=== PATIENT | female | born 1955 | race Caucasian/White ===

== ENCOUNTER 2016-10-09 13:30 | Emergency (ER) | payer MEDICAID ==
[~2016-10-09] VITALS: Ht 157.5 cm; Wt 72.6 kg
[~2016-10-09 13:30] MED LIST: LEVOTHROID0.05 MG PO; LISINOPRIL 10MG10 MG PO; LISINOPRIL 5MG T5 MG PO; MECLIZINE25 MG PO; NYSTATIN CREAM;15 GM TP; PHENERGAN 25MG.25 M1 PO; PREDNISONE 10MG10 MG PO; TRILEPTAL300 MG PO; TRILEPTAL300 MG/5 M PO; ULTRACET 325 MG1 TAB PO; ZOFRAN4 MG PO
--- NOTE | 2016-10-09 13:56 | Emergency Room Report ---
History of Present Illness Time Seen by MD Kerr Presenting Problem in Triage Pt arrived:Walked Presenting Problem:PT ADVISES THAT SINCE SHE TOOK HER MEDICATION THIS MORNING IT FEELS IF SOMETHING IS STUCK IN HER THROAT AND SHE KEEPS COUGHING AND SPITTING UP PHLYM. 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 N Clinical Suspician of Infection? N Mental Status: 1 - Regular (Normal Baseline) Sepsis Risk:Low Sepsis Risk Have you (or family members/close friends) recently traveled outside the [place]? N If Yes, where/when: Have you had exposure to infectious disease within the past month? N TB? Other? Specify: Source patient, RN notes reviewed Exam Limitations no limitations Comment This is a 60-year-old female with a past medical history significant for hypertension, hypothyroidism, seizure disorder who presents to the emergency department for feeling like one of her morning pills is stuck in her throat neuritis sternal notch. She states that she took her medicines at about 9 AM and since then has been "choking and gagging" and states that she has been spitting up "water". She states this has never happened before. No history of acid reflux. She does not take a PPI or H2 cherelle. She tells me that she is unable at this time to tolerate her secretions and is having to spit her saliva out into a bag. She denies any difficulty breathing. ALLERGIES Coded Allergies: Penicillins (03/09/16) Home Medications Reported Medications Levothyroxine Sodium (Levothroid) 0.05 MG PO DAILY Oxcarbazepine (Trileptal) 300 MG PO BID LISINOPRIL (Lisinopril) 5 MG PO DAILY Nystatin (Nystatin Cream; 15GM Tube) 100,000 U TP TID History Medical History General CAD? No Angina: Yes [place]: No Hypertension? Yes Hyperlipidemia? No CHF? No DVT? No PE? No COPD? No Asthma? Yes Anemia? No GERD? No Gastric ulcers? No GI Bleed? No Hernia? No Thyroid Problems? No Hypothyroidism? No CVA? No Seizures? Yes Diabetes? No Renal Insuffiency? No End Stage Renal Disease? No UTI? Yes Stones? No BPH? No GB Disease: No Nephritic Syndrome? No Asplenia? No Hepatitis? No Sickle Cell Disease? No Arthritis? No Migraines? No Cataracts? No Glaucoma? No MRSA? No HIV? No TB? No Anxiety? No Depression? No Cancer? No More? No Immunization Hx DT/Tetanus UNKNOWN Flu Refused Pneumonia Never Had Surgical Hx Previous Surgery?Y TUMOR BRAIN-BENIGN( STOMACH TUMOR-BENIGN HYSTERECTOMY TONSILLECTOMY BLADDER TACK RT EAR DRUM X2 CYST REMOVED RT EAR HYSTERECTOMY Family History Family Hx Diabetes Yes CAD Yes Hypertension Yes Hyperlipidemia Yes Cancer Yes TB No Social History Smoking Hx Smoker: Never Smoker Tobacco: No Alcohol Alcohol: No Review of Systems All Other Systems Reviewed and Negative Physical Exam Vital Signs Vital Signs Date Time Temp Pulse Resp B/P Pulse O2 O2 Flow FiO2 Ox Delivery Rate 10/09 1514 102 18 98 10/09 1434 81 16 153/93 98 10/09 1334 98.2 91 18 168/106 95 General Appearance normal appearance, WD/WN Ear, Nose, Throat hearing grossly normal, widely patent airway with no foreign body Neck normal inspection, non-tender, supple, full range of motion Respiratory Status Yes: chest symmetrical, non tender chest. No: respiratory distress. Lung Sounds bilateral: normal breath sounds, lungs clear. Cardiovascular normal exam, regular rate/rhythm, no peripheral edema, no gallop, no JVD, no murmur, no rub, normal peripheral pulses Gastrointestinal normal bowel sounds, normal exam, non tender Neurologic alert, no motor/sensory deficits, oriented x 3 Skin intact, normal color, warm/dry Medical Decision Making LABS/Meds/Orders Pt receiving controlled substance in ED? No Results/Orders Current Medication Orders Sig/Anne Start time Last Medication Dose Route Stop Time Status Admin Glucagon 0 .STK-MED ONE 10/09 1506 DC .ROUTE Sodium Chloride 1,000 ML .STK-MED ONE 10/09 1506 DC IV Glucagon 1 MG ONCE ONE 10/09 1445 DC 10/09 IV 10/09 1446 1509 Sodium Chloride 1,000 ML .Q1H1M 10/09 1445 AC 10/09 IV 10/09 1545 1509 Sodium Chloride 10 ML PRN PRN 10/09 1445 AC IV 10/10 1444 Ondansetron HCl 0 .STK-MED ONE 10/09 1439 DC .ROUTE Multi-Ingredient GI 0 .STK-MED ONE 10/09 1436 DC Drug PO Ondansetron HCl 0 .STK-MED ONE 10/09 1436 DC .ROUTE Multi-Ingredient GI 60 ML ONCE ONE 10/09 1430 DC 10/09 Drug PO 10/09 1431 1438 Ondansetron HCl 4 MG ONCE ONE 10/09 1430 DC 10/09 PO 10/09 1431 1438 Orders Procedure Date/time Status CHEST-PORTABLE 10/09 1352 Active XRAY/CT/US XRAY/CT/US XRAY chest XR interpretation by reviewed by me Xray Results no mediastinal air, subcutaneous air, PTX Departure Departure Disposition DC Home or Self Care(routine) Clinical Impression Primary Impression: Food impaction of esophagus Qualifiers: Encounter type: initial encounter Qualified Code: T18.128A - Food in esophagus causing other injury, initial encounter Condition STABLE Referrals MANNY CLEMONS Additional Instructions Be sure to take very small bites, take omeprazole daily (this is an over-the- counter medication) and follow-up with gastrointestinal doctor for further evaluation within the next week to see if you need esophageal stretching. ED Critical Care Critical Care No Comments Patient seems to be tolerating some secretions at this time, but then will begin vomiting again. We have attempted to have her tolerate a Zofran and gastrointestinal cocktail, she was unable to keep this down and had another episode of vomiting. Chest x-ray does not show any signs of mediastinal air, esophageal rupture. Review of patient's chart shows that she actually has had this problem before and has a known esophageal stricture. Patient has significant improvement with glucagon, vomits up eggs, which she neglected to tell me that she ate, and is now tolerating by mouth. We will discharge home. Chest x-ray is benign. at 1540
[2016-10-09 15:45] VITALS: BP 153/93
--- NOTE | 2016-10-09 17:47 | RADIOLOGY REPORT PS360 ---
CHEST-PORTABLE Ordering physician: Corey Bolden MD Age: 60 years Female INDICATION: chest symptomspill esophagitis PROCEDURE: CHEST-PORTABLE FINDINGS: Previous comparison chest x-ray from 12/18/2010 Left lung stable clear unremarkable. Upper normal markings at the right infrahilar region medial right base. Most likely overlapping shadows and slight rotation of the chest but cannot exclude early infiltrate at the medial right base. There are restorations consider follow-up. Borderline to mild cardiomegaly. Normal pulmonary vascularity. No pleural effusion. Chest wall unremarkable. . IMPRESSION ----- Nothing definite acute at chest Upper normal markings at the medial right base. Suspect reflecting atelectasis accentuated by slight rotation chest film-doubt early infiltrate respiratory symptoms progress consider follow-up Mild cardiomegaly
== END 2016-10-09 15:46 | disposition home or self-care (01) ==
LOC: ER 13:30
DX: T18.128A Food in esophagus causing other injury, initial encounter (principal)

== ENCOUNTER 2017-04-06 13:38 | Observation (INO) | payer MEDICAID ==
[~2017-04-06] VITALS: Ht 157.5 cm; Wt 65.4 kg
[2017-04-06 13:38] VITALS: BP 122/76
[2017-04-06] MEDS ORDERED: AMLODIPINE BES10 MG PO (13:45)
--- NOTE | 2017-04-06 13:48 | Emergency Room Report ---
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 N Clinical Suspician of Infection? N Mental Status: 1 - Regular (Normal Baseline) Sepsis Risk:Low Sepsis Risk Have you (or family members/close friends) recently traveled outside the [place]? N If Yes, where/when: Have you had exposure to infectious disease within the past month? N TB? Other? Specify: Comment The patient complains of weakness. She says that she was at [employer] and her legs began feeling weak. They now feel better. She says that her abdomen was queasy feeling because she has not eaten today. She had a little chest pressure as well. She now feels better from all of these respects. She says recently she has had an ear infection in her left ear with a ruptured eardrum and trouble swallowing. Dr. Patton is addressing all of these problems. ALLERGIES Coded Allergies: Penicillins (03/09/16) Home Medications Reported Medications Amlodipine Besylate (Amlodipine Besylate) 10 MG PO DAILY #30 Levothyroxine Sodium (Levothroid) 0.05 MG PO DAILY Oxcarbazepine (Trileptal) 300 MG PO BID History Medical History General CAD? No Angina: Yes [place]: No Hypertension? Yes Hyperlipidemia? No CHF? No DVT? No PE? No COPD? No Asthma? Yes Anemia? No GERD? No Gastric ulcers? No GI Bleed? No Hernia? No Thyroid Problems? No Hypothyroidism? No CVA? No Seizures? Yes Diabetes? No Renal Insuffiency? No End Stage Renal Disease? No UTI? Yes Stones? No BPH? No GB Disease: No Nephritic Syndrome? No Asplenia? No Hepatitis? No Sickle Cell Disease? No Arthritis? No Migraines? No Cataracts? No Glaucoma? No MRSA? No HIV? No TB? No Anxiety? No Depression? No Cancer? No More? No Immunization Hx DT/Tetanus UNKNOWN Flu Refused Pneumonia Never Had Surgical Hx Previous Surgery?Y TUMOR BRAIN-BENIGN( STOMACH TUMOR-BENIGN HYSTERECTOMY TONSILLECTOMY BLADDER TACK RT EAR DRUM X2 CYST REMOVED RT EAR HYSTERECTOMY Family History Family Hx Diabetes Yes CAD Yes Hypertension Yes Hyperlipidemia Yes Cancer Yes TB No Social History Smoking Hx Smoker: Never Smoker Tobacco: No Alcohol Alcohol: No Review of Systems All Other Systems Reviewed and Negative Constitutional denies fever, weakness ENT see HPI. Respiratory denies shortness of breath Cardiovascular chest pain Gastrointestinal abdominal pain, denies vomiting Psychiatric/Neurological denies headache Physical Exam Vital Signs Vital Signs Date Time Temp Pulse Resp B/P Pulse O2 O2 Flow FiO2 Ox Delivery Rate 04/06 1830 80 04/06 1830 97.8 80 20 124/79 04/06 1830 94 ROOM AIR 04/06 1830 97.8 80 20 124/79 94 ROOM AIR 04/06 1744 97.8 68 18 137/98 98 04/06 1740 97.8 68 18 137/98 98 04/06 1651 66 18 138/62 97 04/06 1600 65 18 137/70 96 04/06 1517 58 18 131/70 96 04/06 1436 58 18 137/71 96 04/06 1338 97.8 66 18 122/76 96 General Appearance normal appearance, WD/WN Eye Exam - bilateral eye normal exam, bilateral eye PERRL, bilateral eye EOMI Ear, Nose, Throat cotton in LEFT ear. Neck normal inspection, non-tender, supple, full range of motion Respiratory Status Yes: trachea midline, chest symmetrical, non tender chest. No: respiratory distress. Lung Sounds bilateral: normal breath sounds, lungs clear. 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 No Results/Orders Laboratory Tests 04/06/17 1855: Troponin I < 0.02 04/06/17 1630: Urine Color DK YELLOW, Urine Appearance TURBID, Urine pH 6.0, Ur Specific [place] >= 1.030, Urine Protein 2+ H, Urine Ketones TRACE H, Urine Blood NEGATIVE, Urine Nitrate POSITIVE H, Urine Bilirubin NEGATIVE, Urine Urobilinogen 1.0, Ur Leukocyte Esterase TRACE H, Urine WBC 10-20, Ur Squamous Epith Cells 10-20, Urine Bacteria 4+, Hyaline Casts 10-20, Urine Glucose NEGATIVE 04/06/17 1504: Creatine Kinase 76, CK-MB (CK-2) Rel Index 1.2, CK and CKMB Interp 0.9, Troponin I 0.08 H 04/06/17 1504: Sodium 128 L, Potassium 4.1, Chloride 100, Carbon Dioxide 16 L, BUN 11, Creatinine 1.0, Estimated Creat Clear 62, Estimated GFR (MDRD) 56 L, Glucose 117 H, Calcium 8.7, Total Bilirubin 1.0, AST 54 H, ALT 28, Alkaline Phosphatase 116, Total Protein 7.2, Albumin 3.2 L, Globulin 4.0 H, Albumin/ Globulin Ratio 0.8 L 04/06/17 1350: WBC 5.5, RBC 4.30, Hgb 13.6, Hct 40.6, MCV 94.4, RDW 12.8, Plt Count 168, MPV 8.6, Gran % 64.3, Gran # 3.5, Lymphocytes % 25.6, Monocytes % 5.7, Eosinophils % 3.8, Basophils % 0.7, Lymphocytes # 1.4, Monocytes # 0.3, Eosinophils # 0.2, Basophils # 0.0, PUBS MCHC 33.4, MCH 31.5 H 04/06/17 1342: POC Glucose 129 H Current Medication Orders Sig/Anne Start time Last Medication Dose Route Stop Time Status Admin Amlodipine Besylate 10 MG DAILY 04/07 0900 UNV PO Levofloxacin/Dextrose 150 ML DAILY 04/07 09 UNVr IV 04/11 1030 Levothyroxine Sodium 0.05 MG DAILY 04/07 0900 UNV PO Oxcarbazepine 300 MG BID 04/06 2100 UNV PO Sodium Chloride 10 ML PRN PRN 04/06 1715 UNV IV Aspirin 0 .STK-MED ONE 04/06 1700 DC .ROUTE Influenza Virus 0.5 ML PRN PRN 04/06 170 UNV Vaccine Quadrival IM Levofloxacin/Dextrose 150 ML ONCE ONE 04/06 1700 DCr 04/06 IV 04/06 1829 1706 Levofloxacin/Dextrose 150 ML .STK-MED ONE 04/06 170 DC IV Nicotine 21 MG DAILYP PRN 04/06 1700 UNV TD Sodium Chloride 1,000 ML .Q6H40M 04/06 1700 AC 04/06 IV 04/06 2059 1703 Sodium Chloride 1,000 ML .Q6H40M 04/06 1700 UNV IV Sodium Chloride 1,000 ML .STK-MED ONE 04/06 1700 DC IV Aspirin 324 MG ONCE ONE 04/06 1645 DC 04/06 PO 04/06 1646 1703 Sodium Chloride 10 ML PRN PRN 04/06 1400 AC IV 04/07 1349 Orders Procedure Date/time Status [id number] FAT/LO CHO/MARICARMEN 04/07 B Active BASIC METABOLIC PROFILE 04/07 0600 Active TROPONIN I 04/07 0100 Active TROPONIN I 04/06 2200 Active TROPONIN I 04/06 1900 Complete Decision to admit 04/06 1651 Active CULTURE, URINE 04/06 1630 Active CARDIAC ENZYMES 04/06 1406 Complete IV SALINE LOCK 04/06 1349 Active URINALYSIS/COMPLETE 04/06 1349 Complete CBC WITH AUTO DIFF 04/06 1349 Complete CHEM 12 PROFILE 04/06 1349 Complete FINGERSTICK BLOOD SUGAR 04/06 1342 Complete ADMIT PATIENT 04/06 UNK Active 12 LEAD EKG-RADHA (INITIAL) 04/06 UNK Active VITAL SIGNS 04/06 UNK Active 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 She does not currently have any more chest pain. Aspirin ordered. 4:50 PM: I have discussed the case with Dr. Lopez for Dr. Patton who agrees to admit the patient to the hospital. We discussed the patient's clinical information, including history, exam, laboratory and radiology results and ED course. Per hospital procedure, I will write temporary bridge inpatient orders on the patient. Specific orders requested by the admitting physician: Serial cardiac enzymes, IV fluids, antibiotics Departure Departure Disposition Still a Patient Clinical Impression Primary Impression: Chest pain Qualifiers: Chest pain type: precordial pain Qualified Code: R07.2 - Precordial pain Secondary Impressions: Dehydration Elevated troponin Hyponatremia UTI (urinary tract infection) Qualifiers: Urinary tract infection type: acute cystitis Hematuria presence: without hematuria Qualified Code: N30.00 - Acute cystitis without hematuria Condition STABLE Referrals Gary Patton MD (Family) ED Critical Care Critical Care No at 2022
--- NOTE | 2017-04-06 13:48 | Emergency Room Report ---
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 N Clinical Suspician of Infection? N Mental Status: 1 - Regular (Normal Baseline) Sepsis Risk:Low Sepsis Risk Have you (or family members/close friends) recently traveled outside the [place]? N If Yes, where/when: Have you had exposure to infectious disease within the past month? N TB? Other? Specify: Comment The patient complains of weakness. She says that she was at [employer] and her legs began feeling weak. They now feel better. She says that her abdomen was queasy feeling because she has not eaten today. She had a little chest pressure as well. She now feels better from all of these respects. She says recently she has had an ear infection in her left ear with a ruptured eardrum and trouble swallowing. Dr. Patton is addressing all of these problems. ALLERGIES Coded Allergies: Penicillins (03/09/16) Home Medications Reported Medications Amlodipine Besylate (Amlodipine Besylate) 10 MG PO DAILY #30 Levothyroxine Sodium (Levothroid) 0.05 MG PO DAILY Oxcarbazepine (Trileptal) 300 MG PO BID History Medical History General CAD? No Angina: Yes [place]: No Hypertension? Yes Hyperlipidemia? No CHF? No DVT? No PE? No COPD? No Asthma? Yes Anemia? No GERD? No Gastric ulcers? No GI Bleed? No Hernia? No Thyroid Problems? No Hypothyroidism? No CVA? No Seizures? Yes Diabetes? No Renal Insuffiency? No End Stage Renal Disease? No UTI? Yes Stones? No BPH? No GB Disease: No Nephritic Syndrome? No Asplenia? No Hepatitis? No Sickle Cell Disease? No Arthritis? No Migraines? No Cataracts? No Glaucoma? No MRSA? No HIV? No TB? No Anxiety? No Depression? No Cancer? No More? No Immunization Hx DT/Tetanus UNKNOWN Flu Refused Pneumonia Never Had Surgical Hx Previous Surgery?Y TUMOR BRAIN-BENIGN( STOMACH TUMOR-BENIGN HYSTERECTOMY TONSILLECTOMY BLADDER TACK RT EAR DRUM X2 CYST REMOVED RT EAR HYSTERECTOMY Family History Family Hx Diabetes Yes CAD Yes Hypertension Yes Hyperlipidemia Yes Cancer Yes TB No Social History Smoking Hx Smoker: Never Smoker Tobacco: No Alcohol Alcohol: No Review of Systems All Other Systems Reviewed and Negative Constitutional denies fever, weakness ENT see HPI. Respiratory denies shortness of breath Cardiovascular chest pain Gastrointestinal abdominal pain, denies vomiting Psychiatric/Neurological denies headache Physical Exam Vital Signs Vital Signs Date Time Temp Pulse Resp B/P Pulse O2 O2 Flow FiO2 Ox Delivery Rate 04/06 1830 80 04/06 1830 97.8 80 20 124/79 04/06 1830 94 ROOM AIR 04/06 1830 97.8 80 20 124/79 94 ROOM AIR 04/06 1744 97.8 68 18 137/98 98 04/06 1740 97.8 68 18 137/98 98 04/06 1651 66 18 138/62 97 04/06 1600 65 18 137/70 96 04/06 1517 58 18 131/70 96 04/06 1436 58 18 137/71 96 04/06 1338 97.8 66 18 122/76 96 General Appearance normal appearance, WD/WN Eye Exam - bilateral eye normal exam, bilateral eye PERRL, bilateral eye EOMI Ear, Nose, Throat cotton in LEFT ear. Neck normal inspection, non-tender, supple, full range of motion Respiratory Status Yes: trachea midline, chest symmetrical, non tender chest. No: respiratory distress. Lung Sounds bilateral: normal breath sounds, lungs clear. 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 No Results/Orders Laboratory Tests 04/06/17 1855: Troponin I < 0.02 04/06/17 1630: Urine Color DK YELLOW, Urine Appearance TURBID, Urine pH 6.0, Ur Specific [place] >= 1.030, Urine Protein 2+ H, Urine Ketones TRACE H, Urine Blood NEGATIVE, Urine Nitrate POSITIVE H, Urine Bilirubin NEGATIVE, Urine Urobilinogen 1.0, Ur Leukocyte Esterase TRACE H, Urine WBC 10-20, Ur Squamous Epith Cells 10-20, Urine Bacteria 4+, Hyaline Casts 10-20, Urine Glucose NEGATIVE 04/06/17 1504: Creatine Kinase 76, CK-MB (CK-2) Rel Index 1.2, CK and CKMB Interp 0.9, Troponin I 0.08 H 04/06/17 1504: Sodium 128 L, Potassium 4.1, Chloride 100, Carbon Dioxide 16 L, BUN 11, Creatinine 1.0, Estimated Creat Clear 62, Estimated GFR (MDRD) 56 L, Glucose 117 H, Calcium 8.7, Total Bilirubin 1.0, AST 54 H, ALT 28, Alkaline Phosphatase 116, Total Protein 7.2, Albumin 3.2 L, Globulin 4.0 H, Albumin/ Globulin Ratio 0.8 L 04/06/17 1350: WBC 5.5, RBC 4.30, Hgb 13.6, Hct 40.6, MCV 94.4, RDW 12.8, Plt Count 168, MPV 8.6, Gran % 64.3, Gran # 3.5, Lymphocytes % 25.6, Monocytes % 5.7, Eosinophils % 3.8, Basophils % 0.7, Lymphocytes # 1.4, Monocytes # 0.3, Eosinophils # 0.2, Basophils # 0.0, PUBS MCHC 33.4, MCH 31.5 H 04/06/17 1342: POC Glucose 129 H Current Medication Orders Sig/Anne Start time Last Medication Dose Route Stop Time Status Admin Amlodipine Besylate 10 MG DAILY 04/07 0900 UNV PO Levofloxacin/Dextrose 150 ML DAILY 04/07 09 UNVr IV 04/11 1030 Levothyroxine Sodium 0.05 MG DAILY 04/07 0900 UNV PO Oxcarbazepine 300 MG BID 04/06 2100 UNV PO Sodium Chloride 10 ML PRN PRN 04/06 1715 UNV IV Aspirin 0 .STK-MED ONE 04/06 1700 DC .ROUTE Influenza Virus 0.5 ML PRN PRN 04/06 170 UNV Vaccine Quadrival IM Levofloxacin/Dextrose 150 ML ONCE ONE 04/06 1700 DCr 04/06 IV 04/06 1829 1706 Levofloxacin/Dextrose 150 ML .STK-MED ONE 04/06 170 DC IV Nicotine 21 MG DAILYP PRN 04/06 1700 UNV TD Sodium Chloride 1,000 ML .Q6H40M 04/06 1700 AC 04/06 IV 04/06 2059 1703 Sodium Chloride 1,000 ML .Q6H40M 04/06 1700 UNV IV Sodium Chloride 1,000 ML .STK-MED ONE 04/06 1700 DC IV Aspirin 324 MG ONCE ONE 04/06 1645 DC 04/06 PO 04/06 1646 1703 Sodium Chloride 10 ML PRN PRN 04/06 1400 AC IV 04/07 1349 Orders Procedure Date/time Status [id number] FAT/LO CHO/MARICARMEN 04/07 B Active BASIC METABOLIC PROFILE 04/07 0600 Active TROPONIN I 04/07 0100 Active TROPONIN I 04/06 2200 Active TROPONIN I 04/06 1900 Complete Decision to admit 04/06 1651 Active CULTURE, URINE 04/06 1630 Active CARDIAC ENZYMES 04/06 1406 Complete IV SALINE LOCK 04/06 1349 Active URINALYSIS/COMPLETE 04/06 1349 Complete CBC WITH AUTO DIFF 04/06 1349 Complete CHEM 12 PROFILE 04/06 1349 Complete FINGERSTICK BLOOD SUGAR 04/06 1342 Complete ADMIT PATIENT 04/06 UNK Active 12 LEAD EKG-RADHA (INITIAL) 04/06 UNK Active VITAL SIGNS 04/06 UNK Active 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 She does not currently have any more chest pain. Aspirin ordered. 4:50 PM: I have discussed the case with Dr. Lopez for Dr. Patton who agrees to admit the patient to the hospital. We discussed the patient's clinical information, including history, exam, laboratory and radiology results and ED course. Per hospital procedure, I will write temporary bridge inpatient orders on the patient. Specific orders requested by the admitting physician: Serial cardiac enzymes, IV fluids, antibiotics Departure Departure Disposition Still a Patient Clinical Impression Primary Impression: Chest pain Qualifiers: Chest pain type: precordial pain Qualified Code: R07.2 - Precordial pain Secondary Impressions: Dehydration Elevated troponin Hyponatremia UTI (urinary tract infection) Qualifiers: Urinary tract infection type: acute cystitis Hematuria presence: without hematuria Qualified Code: N30.00 - Acute cystitis without hematuria Condition STABLE Referrals Gary Patton MD (Family) ED Critical Care Critical Care No at 2022
[2017-04-06 14:22] LABS: LYMPH # 1.4 K/mm3 (0.7-4.5); LYMPH % 25.6 % (10-50.0)
[2017-04-06 14:23] LABS: HEMOGLOBIN 13.6 g/dL (12.2-16.2)
[2017-04-06 16:40] LABS: URINE BLOOD NEGATIVE (NEG)
[2017-04-06 16:44] LABS: URINE BILIRUBIN - DIPSTICK NEGATIVE (NEG)
[2017-04-06 18:30] VITALS: BP 124/79
[2017-04-06 20:10] VITALS: BP 133/70
[2017-04-06 21:25] VITALS: BP 133/70
[2017-04-07 00:11] VITALS: BP 147/84
[2017-04-07 04:17] VITALS: BP 155/78
[2017-04-07 08:00] VITALS: BP 169/111
[2017-04-07 10:00] VITALS: BP 180/80
[2017-04-07 12:00] VITALS: BP 150/89
[2017-04-07] MEDS ORDERED: LEVAQUIN500 MG PO (13:00)
--- NOTE | 2017-04-07 13:07 | Discharge Summary Standard ---
Demographics: Admit date: 04/06/17 Chief complaint: Abdominal pain PRIMARY DIAGNOSIS: CHEST PAIN, UTI Allergies: Coded Allergies: Penicillins (03/09/16) History of present illness: History of present illness: The patient complains of weakness. She says that she was at [facility] and her legs began feeling weak. They now feel better. She says that her abdomen was queasy feeling because she has not eaten today. She had a little chest pressure as well. She now feels better from all of these respects. She says recently she has had an ear infection in her left ear with a ruptured eardrum and trouble swallowing. Dr. Patton is addressing all of these problems. Above note per ER physician. Patient had minimally elevated troponin level and was admitted for treatment of her urinary tract infection that was found in the emergency department as well as monitoring troponins. 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 Past medical history: Family HX Diabetes Yes CAD Yes Hypertension Yes Hyperlipidemia Yes Cancer Yes TB No Immunization HX DT/Tetanus UNKNOWN Flu Refused Pneumonia Never Had TB Test in last year No General CAD? No Angina: Yes [place]: No Hypertension? Yes Hyperlipidemia? No CHF? No DVT? No PE? No COPD? No Asthma? Yes Anemia? No GERD? No Gastric ulcers? No GI Bleed? No Hernia? No Thyroid Problems? No Hypothyroidism? No CVA? No Seizures? Yes Diabetes? No Renal Insuffiency? No UTI? Yes Stones? No BPH? No GB Disease: No Nephritic Syndrome? No Asplenia? No Hepatitis? No Sickle Cell Disease? No Arthritis? No Migraines? No Cataracts? No Glaucoma? No MRSA? No HIV? No TB? No Anxiety? No Depression? No Cancer? No More? No Past Surgical HX Previous Surgery?Y TUMOR BRAIN-BENIGN(INFANT STOMACH TUMOR-BENIGN HYSTERECTOMY TONSILLECTOMY BLADDER TACK RT EAR DRUM X2 CYST REMOVED RT EAR HYSTERECTOMY Current home meds: Reported Medications Amlodipine Besylate (Amlodipine Besylate) 10 MG PO DAILY #30 Levothyroxine Sodium (Levothroid) 0.05 MG PO DAILY Oxcarbazepine (Trileptal) 300 MG PO BID Social Hx: Smoking HX Tobacco No Are you/the child exposed to second-hand smoke: No Alcohol Alcohol: No Hx of Drug Use Drug Use? No Patien't marital status is single Patient's support system is excellent Comment: Patient lives with her daughter. Review of systems: Constitutional malaise, weakness. Respiratory No: no symptoms reported. Cardiovascular see HPI Gastrointestinal/Abdominal see HPI Genitourinary see HPI. Musculoskeletal No: no symptoms reported. Neurological No: see HPI. Exam: Lab data for last 24 hours: Laboratory Tests 04/07/17 0645: Sodium 131 L, Potassium 3.5, Chloride 101, Carbon Dioxide 22, BUN 7, Creatinine 0.7, Estimated Creat Clear 87, Estimated GFR (MDRD) 85, Glucose 104, Calcium 7.5 L 04/07/17 0215: Troponin I < 0.02 04/06/17 2250: Troponin I < 0.02 04/06/17 1855: Troponin I < 0.02 04/06/17 1630: Urine Color DK YELLOW, Urine Appearance TURBID, Urine pH 6.0, Ur Specific [place] >= 1.030, Urine Protein 2+ H, Urine Ketones TRACE H, Urine Blood NEGATIVE, Urine Nitrate POSITIVE H, Urine Bilirubin NEGATIVE, Urine Urobilinogen 1.0, Ur Leukocyte Esterase TRACE H, Urine WBC 10-20, Ur Squamous Epith Cells 10-20, Urine Bacteria 4+, Hyaline Casts 10-20, Urine Glucose NEGATIVE 04/06/17 1504: Creatine Kinase 76, CK-MB (CK-2) Rel Index 1.2, CK and CKMB Interp 0.9, Troponin I 0.08 H 04/06/17 1504: Sodium 128 L, Potassium 4.1, Chloride 100, Carbon Dioxide 16 L, BUN 11, Creatinine 1.0, Estimated Creat Clear 62, Estimated GFR (MDRD) 56 L, Glucose 117 H, Calcium 8.7, Total Bilirubin 1.0, AST 54 H, ALT 28, Alkaline Phosphatase 116, Total Protein 7.2, Albumin 3.2 L, Globulin 4.0 H, Albumin/ Globulin Ratio 0.8 L 04/06/17 1350: WBC 5.5, RBC 4.30, Hgb 13.6, Hct 40.6, MCV 94.4, RDW 12.8, Plt Count 168, MPV 8.6, Gran % 64.3, Gran # 3.5, Lymphocytes % 25.6, Monocytes % 5.7, Eosinophils % 3.8, Basophils % 0.7, Lymphocytes # 1.4, Monocytes # 0.3, Eosinophils # 0.2, Basophils # 0.0, PUBS MCHC 33.4, MCH 31.5 H 04/06/17 1342: POC Glucose 129 H Microbiology 04/06 1630 URINE CC: Urine Culture - RES Admission vital signs: 1ST Vital Signs Result Date Time Pulse Ox 96 04/06 133 B/P 122/76 04/06 1338 Temp 97.8 04/06 1338 Pulse 66 04/06 133 Resp 18 04/06 1338 O2 Delivery ROOM AIR 04/06 1830 Additional information: Patient is pleasant, alert 2, a little fuzzy about the date. Anterior lung lora are clear, heart rate regular with soft flow murmur, abdomen is soft and nontender, no CVA tenderness. No rebound or guarding. Extremities are without clubbing or edema. Good capillary refill and no pulse deficits. Cranial nerves are intact. Hospital Course Hospital Course: Patient was admitted overnight. Cardiac enzymes on repeat testing were normal 3. Telemetry monitoring overnight was unremarkable. Electrocardiogram showed no evidence of ischemic change. She tolerated intravenous levofloxacin fairly well in this morning is eating well with the exception of some choking/coughing sensations when she is eating, albeit in the hospital bed. She will be discharged home on by mouth levofloxacin. She will follow-up with her primary physician, Dr. Pattno, and I would take the liberty of recommending a swallowing evaluation as an outpatient and I have recommended a soft diet for her. Medications Medications: Discharge meds are as noted. Follow up Follow up in office in: 4 DAYS with: Gary Patton MD at 1307
--- NOTE | 2017-04-07 13:23 | PHARMACY CLINIC NOTE ---
Patient Demographics Patient Demographics Admission date: 04/06/17 Date: 04/07/17 Time: 1323 Allergies Coded Allergies: Penicillins (03/09/16) HEIGHT- FT: 5 IN: 2.00 K.375 VTE General Information Labs: Laboratory Tests 04/06 1350 Hematology Hgb (12.2 - 16.2 g/dL) 13.6 Hct (37.0 - 47.0 %) 40.6 Plt Count (142 - 424 K/mm3) 168 Disclaimer The following section includes nursing documentation that has been pulled in for pharmacy review. Patient's VTE score: 2 Patient's VTE Risk: VERY LOW RISK Clinical trial participant? No VTE prophylaxis NQF [id number] VTE prophylaxis ordered? Yes Type of prophylaxis/treatment: DICKSON at 1322
[2017-04-07 13:55] VITALS: BP 150/89
--- OUTSIDE RECORDS SUMMARY | 2017-04-07 19:54 | External Medical Summary Rpt | CCD ---
Author Author , ALVA CALLE Address Unknown Phone [email or web address] Care Team Providers Care Blood Bank Laboratory Technologist Name Role Phone A Angeles CRUZ MD PSC, A Unavailable Unavailable Angeles CRUZ MD PSC FABIO GARCIA Unavailable Unavailable RADHA STEIN Unavailable Unavailable PENDLETON ALL, PENDLETON ALL Unavailable Unavailable [facility] Unavailable Unavailable SERVICE, [facility] Unavailable Unavailable SERVICE, [facility] Unavailable Unavailable SERVICE, [facility] TRACY WISEMAN, Unavailable Unavailable TRACY WISEMAN [facility] Unavailable Unavailable LAB, [facility] MEM[facility] VALENTINE Unavailable Unavailable MEME YAZ, Unavailable Unavailable MEME YAZ STEPHANI VALENTINE, Unavailable Unavailable STEPHANI VALENTINE MARTINES RUPERT, Unavailable Unavailable MARTINESMERCEDES MARTINES RUPERT, Unavailable Unavailable EDWIN ENRIQUEZ, Unavailable Unavailable EDWIN MARTINES [facility] Unavailable Unavailable [place], [facility] [place] [facility]available [facility], Unavailable Unavailable [facility] Unavailable Unavailable [facility], [facility] Unavailable Unavailable [facility], [facility] Unavailable Unavailable TRANSPORTATION SER, [facility] NAHOMY TANI, NAHOMY Unavailable Unavailable TANI [facility] Unavailable Unavailable [place], [facility] Unavailable Unavailable INC, [facility] Unavailable Unavailable HOSPITAL P, [facility] CALISTA MEJIA, Unavailable Unavailable CALISTA MEJIA HINES Unavailable Unavailable ANITA HOWARD Unavailable Unavailable MARIETTA HOWARD A, Unavailable Unavailable HOWARD, MARIETTA A [facility], Unavailable Unavailable [facility] Unavailable Unavailable IM[facility], [facility], Unavailable Unavailable [facility] KILPELA, KILPELA Unavailable Unavailable KILPELA JEA, KILPELA Unavailable Unavailable JEA [facility] Unavailable Unavailable [facility], [facility] Unavailable Unavailable [facility], [facility], Unavailable Unavailable [facility] Unavailable Unavailable [facility] Unavailable Unavailable [facility] [employer] YOON, YOON Unavailable Unavailable YOON KERI, YOON Unavailable Unavailable KERI YOON KERI, YOON Unavailable Unavailable KERI YOON, KRISTI G, Unavailable Unavailable YOON, KRISTI G VITAL, MELLISA L, Unavailable Unavailable VITAL, MELLISA L AUDIE JR DWI, AUDIE Unavailable Unavailable JR DWI [facility] Unavailable Unavailable 11, [facility] 11 [facility] Unavailable Unavailable ACTION, [facility] SALINE O2, Unavailable Unavailable SALINE [facility]2 NAVIN HARRY, NAVIN Unavailable Unavailable HARRY [facility], Unavailable Unavailable [facility] Unavailable Unavailable SERVICES, [facility] Unavailable Unavailable AMBULANCE, [facility] ROB ZUNIGA JR Unavailable Unavailable F, ROB ZUNIGA JR [facility] Unavailable Unavailable [facility], [facility] ZHAO CEJA, Unavailable Unavailable ZHAO CEJA FLORENTINO MARTY, FLORENTINO MARTY Unavailable Unavailable FLORENTINO MARTY, FLORENTINO MARTY Unavailable Unavailable MULBERRY HARRY, Unavailable Unavailable MULBERRY HARRY [facility] Unavailable Unavailable [facility], [facility] & Unavailable Unavailable HOME [facility], NURSES REGISTRY & [facility], [facility], [facility] Unavailable Unavailable LABS, [facility], Unavailable Unavailable [facility], [facility] Unavailable Unavailable LAB, PATHOLOGY & CYTOLOGY LAB [facility], Unavailable Unavailable [facility], Unavailable Unavailable [facility] RONDA, RONDA Unavailable Unavailable JACKY LEI, Unavailable Unavailable JACKY CASON MD Unavailable Unavailable [facility], TRACY CASON MD [facility] SCIFRES ANG, SCIFRES Unavailable Unavailable ANG SCIFRES ANG, SCIFRES Unavailable Unavailable ANG SCIFRES, SG M, Unavailable Unavailable SCIFRES, SG M SOKAN BAB, SOKAN BAB Unavailable Unavailable SOKAN, NEAL O, Unavailable Unavailable SOKAN, NEAL O [facility] Unavailable Unavailable [facility], [facility] GILMER SHE, Unavailable Unavailable GILMER SHE HANKS DON, Unavailable Unavailable HANKS DON HANKS DON, Unavailable Unavailable HANKS DON HANKS, DON R, Unavailable Unavailable HANKS, DON R [facility]PPORT [facility], Unavailable Unavailable SUPPORT SOURCE [facility], Unavailable Unavailable [facility]PPORT [facility]OURCE FAUSTO GERBER, Unavailable Unavailable FAUSTO GERBER [facility] # Unavailable Unavailable [id number], [facility] # [id number] FLAVIA ALEJANDRO Unavailable Unavailable [facility] Unavailable Unavailable AGENCY, [facility] WEHRVISHNU III ADDIS, Unavailable Unavailable WEDEIDRE III ADDIS STEFFANY MANCINI, Unavailable Unavailable STEFFANY Ang Unavailable Unavailable III , Rob OLSON, NANCY Unavailable Unavailable WHITNEY Purpose Continuity of Care Document - 07-04-2007 through 2016 Problems Code Diagnosis DOS Provider Status R748 ABNORMAL 02-21-2017 [facility] 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 12-11-2016 [facility] CIENCY PHYSICIANS RELATED GROUP DIFFUSE ENDEMIC GOITER E069 THYROIDITIS 12-11-2016 [facility] PH[facility] UNSPECIFIED GROUP R69 ILLNESS 12-11-2016 FED[facility]ATED UNSPECIFIED TRANSPORTAT ION SER D649 ANEMIA 11-16-2016 [facility] UNSPECIFIED YOGESH HOLDINGS E785 HYPERLIPIDE 11-16-2016 [facility] GWEN YOGESH UNSPECIFIED HOLDINGS N85880 EPILEPSY 11-16-2016 [facility] UNS NOT YOGESH INTRACT W/O HOLDINGS STATUS EPILEPTICUS I10 ESSENTIAL 11-16-2016 [facility] PRIMARY YOGESH HYPERTENSIO HOLDINGS N Z6826 BODY MASS 11-16-2016 [facility] INDEX BMI YOGESH 26.0-26.9 HOLDINGS ADULT H524 PRESBYOPIA 10-24-2016 HOWARD K222 ESOPHAGEAL 10-16-2016 Maxine CRUZ OBSTRUCTION PSC K5901 SLOW 10-16-2016 Maxine CRUZ TRANSIT PSC CONSTIPATIO N K828 OTHER 10-16-2016 A Angeles CRUZ SPECIFIED PSC DISEASES OF GALLBLADDER R109 UNSPECIFIED 10-16-2016 A Angeles CRUZ ABDOMINAL PSC PAIN R1310 DYSPHAGIA 10-16-2016 A Angeles CRUZ UNSPECIFIED PSC P61100U UNS FOREIGN 10-16-2016 A Angeles CRUZ BODY PSC LARYNX CAUS OTH INJURY INIT ENC Z6825 BODY MASS 10-16-2016 A Angeles CRUZ INDEX BMI PSC 25.0-25.9 ADULT E039 HYPOTHYROID 10-12-2016 [facility] ISM PHYSICIANS UNSPECIFIED GROUP [id number] FOOD IN 10-09-2016 [facility] ESOPHAGUS PHYSICIANS, CAUSING OTH PLLC INJURY INITIAL ENC Z0389 ENCOUNTER 10-09-2016 [facility] OT MEDICAL SUSPCT DZ & IMAGING ASS COND RULED OUT R2233 LOC 09-07-2016 A Angeles CRUZ SWELLING PSC MASS & LUMP UPPER LIMB BILATERAL K811 CHRONIC 07-05-2016 [facility] CHOLECYSTIT PHYSICIANS IS GROUP Y16002 ENCOUNTER 07-05-2016 [facility] AL CARIOVASCUL AR EXAM A05978 ENCOUNTER 07-05-2016 [facility] P AL RESPIRATORY EXAM E64241 ENCOUNTER 07-05-2016 [facility] P AL LABORATORY EXAM J309 ALLERGIC 05-31-2016 A Angeles CRUZ RHINITIS [facility] UNSPECIFIED H7013 CHRONIC 05-26-2016 [facility] MASTOIDITIS PHYSICIANS BILATERAL GROUP H6522 CHRONIC 05-11-2016 [facility] SEROUS [facility] OTITIS INC MEDIA LEFT EAR R4702 DYSPHASIA 05-11-2016 [facility] R7989 OTHER SPEC 05-11-2016 [place] ABNORMAL MEDICAL FINDINGS IMAGING ASS BLOOD CHEMISTRY R945 ABNORMAL 05-11-2016 [facility] RESULTS OF [facility] LIVER INC FUNCTION STUDIES E876 HYPOKALEMIA 05-08-2016 [facility] R21 RASH AND 04-07-2016 [facility] OTHER YOGESH NONSPECIFIC HOLDINGS SKIN ERUPTION R0781 PLEURODYNIA 02-22-2016 [facility] R252 CRAMP AND 02-17-2016 [facility] SPASM YOGESH HOLDINGS R5383 OTHER 02-17-2016 LAB MXA FATIGUE YOGESH HOLDINGS R0981 NASAL 01-04-2016 A Angeles CRUZ CONGESTION PSC Z1231 ENCOUNTER 11-18-2015 [place] SCREENING MEDICAL MAMMO MALIG IMAGING ASS NEOPLASM BREAST H905 UNSPECIFIED 11-11-2015 [facility] PHYSICIANS SENSORINEUR GROUP AL HEARING LOSS W98012 ENCOUNTER 11-05-2015 [facility] CLINICAL EDITOR EXAM YOGESH GENERAL RTN HOLDINGS W/O ABNORMAL FIND H6092 UNSPECIFIED 09-22-2015 [facility] OTITIS PHYSICIANS EXTERNA GROUP LEFT EAR H7012 CHRONIC 09-22-2015 [facility] MASTOIDITIS PHYSICIANS LEFT EAR GROUP Z63053 SPONDYLOSIS 07-01-2015 [facility] W/O PHYSICIANS MYELOPATH/R GROUP ADICULOPATH Y CERV RGN 4011 ESSENTIAL 03-05-2015 A Angeles MARINIO PSC N, BENIGN 88627 03-05-2015 [facility] TRANSPORTAT ION SER 9331 FOREIGN 02-22-2015 [facility] BODY IN PHYSICIANS LARYNX GROUP 4019 UNSPECIFIED 02-15-2015 [facility] ESSENTIAL [facility] HYPERTENSIO INC N 5303 STRICTURE 02-15-2015 [facility] AND [facility] STENOSIS OF INC ESOPHAGUS 69297 OTHER 02-15-[address] [facility] SY[facility] MEDICAL INVOLVING IMAGING ASS HEAD AND NECK 07335 DYSPHAGIA 02-15-2015 [facility] UNSPECIFIED PHYSICIANS, PLLC V140 PERSONAL 02-15-2015 [facility] HISTORY OF [facility] ALLERGY TO INC PENICILLIN 3814 NONSUPPRATV 01-20-2015 [facility] OTITIS PHYSICIANS MEDIA NOT GROUP SPEC ACUT/CHRON 3839 UNSPECIFIED 01-20-2015 [facility] PHYSICIANS MASTOIDITIS GROUP 4730 CHRONIC 01-20-2015 [facility] MAXILLARY PHYSICIANS SINUSITIS GROUP 2449 UNSPECIFIED 11-24-2014 [facility] HYPOTHYROID ISM 93514 UNSPEC 11-24-2014 A Angeles CRUZ EPILEPSY PSC WITHOUT MENTION INTRACT EPILEPSY 4779 ALLERGIC 11-24-2014 A Angeles CRUZ RHINITIS PSC CAUSE UNSPECIFIED 3804 IMPACTED 09-10-2014 [facility] KERI CERUMEN 3831 CHRONIC 09-10-2014 [facility] KERI MASTOIDITIS 40940 ESOPHAGEAL 07-02-2014 A Angeles CRUZ REFLUX PSC 11027 SIMPLE/UNSP 04-09-2014 [facility] ECIFIED [facility] P SEROUS OTITIS MEDIA 55542 UNSPECIFIED 04-09-2014 [facility] [place] [address] [place] 04-09-2014 [facility] PERAZA OF [facility] P AND MASTOID 28860 OTHER CHEST 01-20-2014 FLORENTINO MARTY PAIN 3674 PRESBYOPIA 12-12-2013 SCIFRES ANG 4770 ALLERGIC 10-31-2013 FLORENTINO MARTY RHINITIS DUE TO POLLEN V7612 OTHER 09-30-2013 [facility] SCREENING [facility] MAMMOGRAM INC 2859 UNSPECIFIED 09-15-2013 [facility] 4610 ACUTE 09-04-2013 [facility] SAAVEDRA MAXILLARY SINUSITIS 4612 ACUTE 09-04-2013 [facility] SAAVEDRA ETHMOIDAL SINUSITIS 7840 HEADACHE 08-07-2013 FLORENTINO FERGUSON 01634 CRAMP OF 05-01-2013 FLORENTINO FERGUSON LIMB 65582 HYPERTENSIO 02-12-2013 Maxine CELESTIN MD [facility] 93880 OTHER 02-11-2013 [facility] CONVULSIONS [facility] 37828 OBSTRUCTIVE 2012 [facility] SAAVEDRA SLEEP APNEA 401.9 401.9 12-20-2012 [facility] 493.90 493.90 12-20-2012 [place] ASTHMA, [facility] UNSPECIFIED Hospital 66545 ASTHMA, 12-20-2012 [facility] UNSPECIFIED [facility] UNSPECIFIED STATUS 530.3 530.3 12-20-2012 [place] ESOPHAGEAL [facility] STRICTURE Hospital 780.39 780.39 12-20-2012 [facility] CONVULSIONS Hospital 9351 FOREIGN 12-20-2012 WE[facility]MAN III BODY IN ADDIS ESOPHAGUS V14.0 V14.0 12-20-2012 [place] HX-PENICILL [facility] IN ALLERGY Hospital 2409 GOITER, 12-12-2012 [facility] UNSPECIFIED [facility] 2459 UNSPECIFIED 12-09-2012 [facility] SAAVEDRA THYROIDITIS 7881 DYSURIA 10-14-2012 [facility] DON 79565 BLISTERS 10-14-2012 [facility] WITH DON EPIDERMAL LOSS DUE TO BURN-BREAST 2724 OTHER AND 09-12-2012 [facility] UNSPECIFIED [facility] HYPERLIPIDE GWEN V7231 ROUTINE 09-06-2012 [facility] GYNECOLOGIC DON AL EXAMINATION 24411 OSTEOARTHRO 06-27-2012 [facility] S UNSPEC HEALTH WHETHER AGENCY GEN/LOC UNSPEC SITE 7812 ABNORMALITY 06-27-2012 [facility] OF GAIT HEALTH AGENCY 7993 UNSPECIFIED 06-27-2012 [facility] DEBILITY HEALTH AGENCY V571 OTHER 06-27-2012 [facility] PHYSICAL HEALTH THERAPY AGENCY 6259 UNSPEC 06-08-2012 [place] [facility] IMAGING ASS W/FEMALE GENITAL ORGANS 51295 PAIN IN 06-08-2012 [place] JOINT MEDICAL PELVIC IMAGING ASS REGION AND THIGH 7295 PAIN IN 06-08-2012 [facility] SOFT [facility] TISSUES OF SERVICE LIMB 8439 SPRAIN&STRA 06-08-2012 WEHRMAN III IN OF ADDIS UNSPECIFIED SITE OF HIP&THIGH E8889 UNSPECIFIED 06-08-2012 [facility] FALL [facility] SERVICE 6980 PRURITUS 06-05-2012 [facility] ANI DON 54539 OSTEOARTHRO 06-04-2012 [place] S UNSPEC MEDICAL GEN/LOC IMAGING ASS PELV REGION&THIG H 87714 DEGEN 06-04-2012 [place] LUMBAR/LUMB MEDICAL OSACRAL IMAGING ASS INTERVERTEB RAL DISC 7243 SCIATICA 06-04-2012 [facility] INC 8472 LUMBAR 06-04-2012 [facility] SPRAIN AND [facility] STRAIN INC 7821 RASH AND 05-31-2012 [facility] OTHER DON NONSPECIFIC SKIN ERUPTION 31199 PAIN IN 05-03-2012 [facility] JOINT, DON SHOULDER REGION 4554 EXTERNAL 02-23-2012 [facility] THROMBOSED DON HEMORRHOIDS 931 FOREIGN 01-29-2012 [facility] BODY IN EAR DON 56841 HEMANGIOMA 01-05-2012 [facility] OF SKIN AND DON SUBCUTANEOU S TISSUE 3813 OTHER&UNSPE 07-12-2011 [facility] C CHRONIC DON NONSUPPURAT [place] OTITIS MEDIA 61659 LOC-REL 04-11-2011 [facility] [place] [facility] W/SPS CLINIC PSC W/O INTRACTABL EPIL 318 OTHER 03-27-2011 SUPPORT SPECIFIED SOURCE INTELLECTUA L DISABILITIE S 2761 HYPOSMOLALI 2010 [facility] TY AND/OR EMERGENCY HYPONATREMI SERVICES A 7802 SYNCOPE AND 2010 [facility] COLLAPSE AMBULANCE SERVICE 13912 NAUSEA WITH 2010 [facility] VOMITING [facility] INC 44918 VOMITING 2010 [facility] ALONE [facility]ERGENCY SERVICES 4739 UNSPECIFIED 12-18-2010 [facility] SINUSITIS [facility]ERGENCY SERVICES 7804 DIZZINESS 12-18-2010 [facility] AND EMERGENCY GIDDINESS SERVICES 7862 COUGH 12-18-2010 [place] [facility] 7906 OTHER 10-04-2010 [facility] ABNORMAL [facility] BLOOD INC CHEMISTRY 20452 OTHER 09-27-2010 NEW [facility] [place] [facility] PSC 460 ACUTE 09-19-2010 [facility] NASOPHARYNG DON ITIS 7810 ABNORMAL 08-20-2010 [facility] INVOLUNTARY AMBULANCE MOVEMENTS SERVICE 19625 MUSCLE 05-13-2010 [facility] WEAKNESS EMERGENCY (GENERALIZE SERVICES D) 92471 OTHER 05-13-2010 [facility] MALAISE AND [facility] FATIGUE INC 45574 HYPERSOMNIA 04-08-2010 [facility] WITH SLEEP RUPERT APNEA UNSPECIFIED 86217 HYPERSOMNIA 04-08-2010 MARTINES RUPERT UNSPECIFIED 93362 UNSPECIFIED 03-31-2010 YOON KERI INFECTIVE OTITIS EXTERNA 5589 OTH&UNSPEC 03-18-2010 [facility] NONINFECTIO DON US GASTROENTER ITIS&COLITI S 7847 EPISTAXIS 03-03-2010 YOON KERI 12394 ABDOMINAL 02-11-2010 [facility] PAIN RIGHT DON LOWER QUADRANT 80451 ABDOMINAL 02-11-2010 [facility] PAIN, LEFT DON LOWER QUADRANT 3829 UNSPECIFIED 12-22-2009 [facility], OTITIS DON R MEDIA 72828 THYROTOX 11-02-2009 KARRIE, W/O KRISTI Akhtar GOITER/OTH CAUSE W/O CRISIS 78235 OPEN 08-19-2009 [facility] HOME [facility] OTHER [facility] SPECIFIED PART PELVIS OTHER 76136 EPILEPSY 08-13-2009 [facility] COMP PG DON R /PP UNSPEC EPIS CARE/NA 06339 REFLUX 07-28-2009 [facility] [place]OPH[place]IT[place] R 36816 UNSPECIFIED 07-28-2009 GEOVANNA HANKS R CONSTIPATIO N 40753 CLOSED 07-27-2009 [facility] FRACTURE [facility] UNSPECIFIED INC PART RADIUS W/ULNA 2630 MALNUTRITIO 07-13-2009 [facility] HE [facility] CENTER DEGREE 27454 OTHER 07-13-2009 [place] CLOSED MEDICAL FRACTURES IMAGING OF DISTAL ASSOCIATES END OF RADIUS 02985 CLOSED 07-13-2009 WISEMAN, FRACTURE OF TRACY DISTAL END OF ULNA V653 DIETARY 07-13-2009 [facility] COUN[facility] 462 ACUTE 03-17-2009 [facility], PHARYNGITIS DON R 4660 ACUTE 03-17-2009 HANKS, BRONCHITIS DON R 73971 CLOSED 03-09-2009 [facility] FRACTURE OF [facility] INC UNSPECIFIED PART OF RADIUS 70752 UNSPECIFIED 03-09-2009 [place] CLOSED MEDICAL FRACTURE OF IMAGING CARPAL ASSOCIATES BONE 71010 UNSPECIFIED 02-03-2009 [facility], SITE OF DON R ANKLE SPRAIN AND STRAIN 54668 CLOSED 01-12-2009 [facility] COLLES [facility] FRACTURE INC 99659 CLOSED 01-08-2009 [facility] FRACTURE OF [facility] LOWER END INC OF RADIUS WITH ULNA E8490 PLACE OF 01-07-2009 [place] OCCURRENCE, MEDICAL HOME IMAGING ASSOCIATES E8842 ACCIDENTAL 01-07-2009 [place] FALL FROM MEDICAL CHAIR IMAGING ASSOCIATES 920 CONTUSION 12-04-2008 [facility] FACE AMBULANCE SCALP AND SERVICE NECK EXCEPT EYE 19227 OTHER 11-05-2008 COMBINED ABNORMAL PHYSICIANS GLUCOSE LAB V5869 LONG-TERM 10-23-2008 [facility] (CURRENT) HEALTH USE OF CARE INC OTHER MEDICATIONS V5883 ENCOUNTER 10-23-2008 [facility] FOR [facility] THERAPEUTIC CARE INC DRUG MONITORING 4659 ACUTE URIS 09-15-2008 [facility] OF DON R UNSPECIFIED SITE 7823 EDEMA 01-08-2008 HAN[facility], DON R 7242 LUMBAGO 01-02-2008 [facility] INC 7245 UNSPECIFIED 01-02-2008 [facility] 7859 OTHER 12-05-2007 [place] SYMPTOMS MEDICAL INVOLVING IMAGING CARDIOVASCU ASSOCIATES LAR SYSTEM 7820 DISTURBANCE 11-25-2007 [facility] OF SKIN DON R SENSATION 8088 UNSPECIFIED 11-13-2007 [facility] CLOSED DON R FRACTURE OF PELVIS 4618 OTHER ACUTE 09-18-2007 [facility] SINUSITIS DON R 808 FRACTURE OF 09-02-2007 [facility] PELVIS HOME [employer] 3489 UNSPECIFIED 08-29-2007 [facility] CONDITION HEALTH OF BRAIN AGENCY V1588 PERSONAL 08-29-2007 [facility] HISTORY OF HEALTH FALL AGENCY 8208 CLOSED 07-31-2007 [facility] FRACTURE AMBULANCE UNSPECIFIED SERVICE PART NECK FEMUR 8082 CLOSED 07-27-2007 [place] FRACTURE OF MEDICAL PUBIS IMAGING ASSOCIATES 32695 UNS ADVRS 07-27-2007 [facility] EFF OTH RX [facility] MEDICINAL&B INC IOLOGICAL SBSTNC 7937 NONSPC ABN 07-26-2007 [facility] FIND RAD RADIOLOGY & OTH EXM ASSOCIATES MUSCULSKELT PSC L SYS T18.128A FOOD IN ESOPHAGUS CAUSING OTHER INJURY, INITIAL ENCOUNTER Allergies, Adverse Reactions, Alerts Type Drug Allergy Adverse Reaction to Substance Substance Reaction Severity PCN (penicillin) Unknown Unknown Medications Na ND Rx Da Fi Fi Am Da Di Ph RX Ph St me C No te ll ll ou ys ag ar # ys at rm s nt no ma ic us Or Da si cy ia de te s n re d LE 00 08 09 90 90 00 HO Ac VO 52 -2 -1 .0 00 ME ti TH 71 2- 5- 00 06 TO ve YR 34 20 20 07 WN OX 20 17 17 62 IN 1 92 PH E AR 50 MA CY MC G OF TA BL CY ET NT HI AN A OX 00 08 09 25 30 00 HO Ac CA 05 -1 -1 0. 00 ME ti RB 40 7- 5- 00 06 TO ve AZ 19 20 20 0 09 WN EP 95 17 17 25 IN 9 76 PH E AR 30 MA 0 CY MG /5 OF ML CY NT SEPULVEDA HI SP AN A DO 68 07 08 20 10 00 HO Ac XY 38 -1 -0 .0 00 ME ti CY 20 0- 4- 00 06 TO ve CL 70 20 20 09 WN IN 71 17 17 04 E 8 53 PH MO AR NO MA CY 10 0 OF MG CY CA NT P HI AN A CI 00 07 08 7. 10 00 HO Ac WI 06 -1 -0 50 00 ME ti OD 58 0- 4- 0 06 TO ve EX 53 20 20 09 WN 30 17 17 04 OT 2 54 PH IC AR MA SEPULVEDA CY SP EN OF SI ON CY NT HI AN A OX 00 06 07 25 30 00 HO Ac CA 05 -3 -2 0. 00 ME ti RB 40 0- 8- 00 06 TO ve AZ 19 20 20 0 08 WN EP 95 17 17 98 IN 9 49 PH E AR 30 MA 0 CY MG /5 OF ML CY NT SEPULVEDA HI SP AN A LI 68 06 06 30 30 00 HO Ac SI 18 -0 -3 .0 00 ME ti NO 00 7- 0- 00 06 TO ve WI 51 20 20 07 WN IL 80 17 17 95 -H [address] AR Z MA 10 CY -1 2. OF 5 MG CY NT TA HI B AN A SE 24 06 06 30 30 00 HO Ac NN 38 -0 -3 .0 00 ME ti A- 50 7- 0- 00 06 TO ve LA 40 20 20 07 WN X 47 17 17 04 8. 8 98 PH 6 AR MG MA CY TA BL OF ET CY NT HI AN A AM 68 06 06 30 30 00 HO Ac LO 38 -0 -3 .0 00 ME ti DI 20 7- 0- 00 06 TO ve PI 12 20 20 07 WN NE 30 17 17 62 5 75 PH BE AR SY MA LA CY TE OF 10 CY MG NT HI TA AN B A OX 68 06 06 60 30 00 HO Ac CA 46 -0 -3 .0 00 ME ti RB 20 7- 0- 00 06 TO ve AZ 13 20 20 08 WN EP 80 17 17 39 IN 1 11 PH E AR 30 MA 0 CY MG OF TA BL CY ET NT HI AN A LE 00 05 06 90 90 00 HO Ac VO 52 -3 -2 .0 00 ME ti TH 71 0- 3- 00 06 TO ve YR 34 20 20 07 WN OX 20 17 17 62 IN 1 92 PH E AR 50 MA CY MC G OF TA BL CY ET NT HI AN A CE 68 05 06 20 10 00 HO Ac FD 00 -2 -2 .0 00 ME ti IN 10 5- 3- 00 06 TO ve IR 15 20 20 08 WN 00 17 17 77 30 6 36 PH 0 AR MG MA CY CA PS OF UL E CY NT HI AN A LO 45 05 06 30 30 00 HO Ac RA 80 -2 -1 .0 00 ME ti TA 20 2- 6- 00 06 TO ve DI 65 20 20 08 WN NE 08 17 17 74 7 96 PH 10 AR MA MG CY TA OF BL ET CY NT HI AN A OX 00 04 06 25 30 00 HO Ac CA 05 -2 -1 0. 00 ME ti RB 40 4- 6- 00 06 TO ve AZ 19 20 20 0 08 WN EP 95 17 17 56 IN 9 64 PH E AR 30 MA 0 CY MG /5 OF ML CY NT SEPULVEDA HI SP AN A AM 68 04 05 30 30 00 HO Ac LO 38 -2 -2 .0 00 ME ti DI 20 8- 6- 00 06 TO ve PI 12 20 20 07 WN NE 30 17 17 62 5 75 PH BE AR SY MA LA CY TE OF 10 CY MG NT HI TA AN B A SE 24 04 05 30 30 00 HO Ac NN 38 -2 -2 .0 00 ME ti A- 50 7- 6- 00 06 TO ve LA 40 20 20 07 WN X 47 17 17 04 8. 8 98 PH 6 AR MG MA CY TA BL OF ET CY NT HI AN A LI 68 04 05 30 30 00 HO Ac SI 18 -2 -2 .0 00 ME ti NO 00 7- 6- 00 06 TO ve WI 51 20 20 07 WN [place] 80 17 17 95 -H [address] AR Z MA 10 CY -1 2. OF 5 MG CY NT TA HI B AN A NE 61 04 05 10 10 00 HO Ac OM 31 -2 -1 .0 00 ME ti YC 40 0- 9- 00 06 TO ve IN 64 20 20 08 WN -P 61 17 17 54 OL 0 94 PH YM AR YX MA IN CY -H C OF EA R CY SO NT LN HI AN A OX 68 03 04 60 30 00 HO Ac CA 46 -2 -2 .0 00 ME ti RB 20 7- 1- 00 06 TO ve AZ 13 20 20 08 WN EP 80 17 17 39 IN 1 11 PH E AR 30 MA 0 CY MG OF TA BL CY ET NT HI AN A SE 24 03 04 30 30 00 HO Ac NN 38 -2 -1 .0 00 ME ti A- 50 0- 4- 00 06 TO ve LA 40 20 20 07 WN X 47 17 17 04 8. 8 98 PH 6 AR MG MA CY TA BL OF ET CY NT HI AN A LI 68 03 03 30 30 00 HO Ac SI 18 -0 -3 .0 00 ME ti NO 00 6- 1- 00 06 TO ve WI 51 20 20 07 WN [place] 80 17 17 95 -H [address] AR Z MA 10 CY -1 2. OF 5 MG CY NT TA HI B AN A LA 24 03 03 25 25 00 HO Ac XA 38 -0 -3 .0 00 ME ti TI 50 6- 1- 00 06 TO ve VE 90 20 20 07 WN 36 17 17 43 EC 3 75 PH 5 AR MA MG CY TA OF BL ET CY NT HI AN A LE 00 02 03 90 90 00 HO Ac VO 52 -2 -2 .0 00 ME ti TH 71 7- 4- 00 06 TO ve YR 34 20 20 07 WN OX 20 17 17 62 IN 1 92 PH E AR 50 MA CY MC G OF TA BL CY ET NT HI AN A OX 68 02 03 60 30 00 HO Ac CA 46 -1 -1 .0 00 ME ti RB 20 6- 7- 00 06 TO ve AZ 13 20 20 06 WN EP 80 17 17 89 IN 1 23 PH E AR 30 MA 0 CY MG OF TA BL CY ET NT HI AN A LA 24 02 03 25 25 00 HO Ac XA 38 -0 -0 .0 00 ME ti TI 50 8- 3- 00 06 TO ve VE 90 20 20 07 WN 36 17 17 43 EC 3 75 PH 5 AR MA MG CY TA OF BL ET CY NT HI AN A AM 68 02 03 30 30 00 HO Ac LO 38 -0 -0 .0 00 ME ti DI 20 8- 3- 00 06 TO ve PI 12 20 20 07 WN NE 30 17 17 62 5 75 PH BE AR SY MA LA CY TE OF 10 CY MG NT HI TA AN B A LI 68 01 02 30 30 00 HO Ac SI 18 -1 -1 .0 00 ME ti NO 00 6- 0- 00 06 TO ve WI 51 20 20 07 WN [place] 80 17 17 95 -H [address] AR Z MA 10 CY -1 2. OF 5 MG CY NT TA HI B AN A OX 68 01 02 60 30 00 HO Ac CA 46 -0 -0 .0 00 ME ti RB 20 9- 3- 00 06 TO ve [place] 13 20 20 06 WN EP 80 17 17 89 IN 1 23 PH E AR 30 MA 0 CY MG OF TA BL CY ET NT HI AN A LO 45 12 01 30 30 00 HO Ac RA 80 -2 -2 .0 00 ME ti TA 20 6- 0- 00 06 TO ve DI 65 20 20 06 WN NE 08 16 17 25 7 94 PH 10 AR MA MG CY TA OF BL ET CY NT HI AN A ME 00 05 05 0 [address] Ac CL 53 -1 -[address] 56 EP ti IZ 63 8- 8- 00 SI 30 HE ve IN 98 20 20 0 DE NS E 50 12 12 12 1 PH DO .5 AR N MA R MG CY TA OF BL ET CY NT HI AN A 64 02 05 5 30 [address] Ac 67 -1 -[address] 30 EP ti 90 7- 4- 00 SI 43 HE ve 92 20 20 0 DE NS 90 12 12 6 PH DO AR N MA R CY OF CY NT HI AN A LE 00 02 05 5 [address] Ac VO 37 -1 -[address] 30 EP ti TH 81 7- 4- 00 SI 42 HE ve YR 80 20 20 0 DE NS OX 30 12 12 IN 1 PH DO E AR N 50 MA R CY MC G OF TA BL CY ET NT HI AN A 60 04 05 6 60 30 EA 27 RO Ac 50 -0 -[address] 05 BE ti 52 9- 4- 00 SI 04 RT ve 53 20 20 0 DE SO 50 12 12 N 1 PH EL AR IZ MA A CY E OF CY NT HI AN A LE 00 02 04 5 [address] Ac VO 37 -1 -[address] 30 EP ti TH 81 7- 2- 00 SI 42 HE ve YR 80 20 20 0 DE NS OX 30 12 12 IN 1 PH DO E AR N 50 MA R CY MC G OF TA BL CY ET NT HI AN A 64 02 04 5 [address] Ac 67 -1 -[address] 30 EP ti 90 7- 2- 00 SI 43 HE ve 92 20 20 0 DE NS 90 12 12 6 PH DO AR N MA R CY OF CY NT HI AN A 60 04 04 6 60 30 EA 27 RO Ac 50 -0 -[address] 05 BE ti 52 9- 9- 00 SI 04 RT ve 53 20 20 0 DE SO 50 12 12 N 1 PH EL AR IZ MA A CY E OF CY NT HI AN A NY 51 04 04 1 [address] 67 -0 -[address] 98 EP ti AT 21 4- 4- 00 SI 38 HE ve IN 28 20 20 0 DE NS 90 12 12 10 2 PH DO 0, AR N 00 MA R 0 CY UN IT OF /G M CY CR NT EA HI M AN A LO 45 03 03 [address] Ac RA 80 -2 -[address] 87 EP ti TA 20 7- 7- 00 SI 70 HE ve DI 65 20 20 0 DE NS NE 08 12 12 7 PH DO 10 AR N MA R MG CY TA OF BL ET CY NT HI AN A AZ 00 03 03 0 [address] Ac IT 09 -2 -[address] 87 EP ti HR 37 7- 7- 00 SI 69 HE ve OM 14 20 20 DE NS YC 61 12 12 IN 8 PH DO AR N 25 MA R 0 CY MG OF TA BL CY ET NT HI AN A 64 02 03 5 [address] Ac 67 -1 -[address] 30 EP ti 90 7- 6- 00 SI 43 HE ve 92 20 20 0 DE NS 90 12 12 6 PH DO AR N MA R CY OF CY NT HI AN A LE 00 02 03 [address] Ac VO 37 -1 -[address] 30 EP ti TH 81 7- 6- 00 SI 42 HE ve YR 80 20 20 0 DE NS OX 30 12 12 IN 1 PH DO E AR N 50 MA R CY MC G OF TA BL CY ET NT HI AN A 60 07 02 6 60 0 EA 23 RO Ac 50 -1 -[address] 29 BE ti 52 3- 8- 00 SI 24 RT ve 53 20 20 0 DE SO 50 11 12 N 1 PH EL AR IZ MA A CY E OF CY NT HI AN A LE 00 02 02 5 [address] Ac VO 37 -1 -[address] 30 EP ti TH 81 7- 7- 00 SI 42 HE ve YR 80 20 20 0 DE NS OX 30 12 12 IN 1 PH DO E AR N 50 MA R CY MC G OF TA BL CY ET NT HI AN A 64 02 02 5 [address] Ac 67 -1 -[address] 30 EP ti 90 7- 7- 00 SI 43 HE ve 92 20 20 0 DE NS 90 12 12 6 PH DO AR N MA R CY OF CY NT HI AN A 60 07 01 6 60 0 EA 23 RO Ac 50 -1 -[address] 29 BE ti 52 3- 3- 00 SI 24 RT ve 53 20 20 0 DE SO 50 11 12 N 1 PH EL AR IZ MA A CY E OF CY NT HI AN A 60 07 12 6 60 30 EA 23 RO Ac 50 -1 -[address] 29 BE ti 52 3- 8- 00 SI 24 RT ve 53 20 20 DE SO 50 11 11 N 1 PH EL AR IZ MA A CY E OF CY NT HI AN A 60 07 10 6 60 30 EA 23 RO Ac 50 -1 -[address] 29 BE ti 52 3- 8- 00 SI 24 RT ve 53 20 20 DE SO 50 11 11 N 1 PH EL AR IZ MA A CY E OF CY NT HI AN A LE 00 05 10 5 [address] Ac VO 37 -2 -[address] 64 EP ti TH 81 3- 6- 00 SI 09 HE ve YR 80 20 20 DE NS OX 30 11 11 IN 1 PH DO E AR N 50 MA R CY MC G OF TA BL CY ET NT HI AN A ME 00 10 10 0 [address] Ac TH 78 -1 -[address] 56 EP ti YL 15 8- 8- 00 SI 11 HE ve WI 02 20 20 DE NS ED 20 11 11 NI 7 PH DO SO AR N LO MA R NE CY 4 OF MG CY DO NT SE HI PK AN A LO 45 10 10 1 [address] Ac RA 80 -1 -[address] 56 EP ti TA 20 8- 8- 00 SI 12 HE ve DI 65 20 20 DE NS NE 08 11 11 7 PH DO 10 AR N MA R MG CY TA OF BL ET CY NT HI AN A LE 00 05 09 5 [address] Ac VO 37 -2 -[address] 64 EP ti TH 81 3- 3- 00 SI 09 HE ve YR 80 20 20 DE NS OX 30 11 11 IN 1 PH DO E AR N 50 MA R CY MC G OF TA BL CY ET NT HI AN A 60 07 09 6 60 30 EA 23 RO Ac 50 -1 -[address] 29 BE ti 52 3- 0- 00 SI 24 RT ve 53 20 20 DE SO 50 11 11 N 1 PH EL AR IZ MA A CY E OF CY NT HI AN A LI 00 06 09 3 [address] Ac SI 17 -0 -[address] 80 EP ti NO 23 3- 2- 00 SI 47 HE ve WI 75 20 20 DE NS IL 98 11 11 0 PH DO 10 AR N MA R MG CY TA OF BL ET CY NT HI AN A LE 00 05 08 5 [address] Ac VO 37 -2 -[address] 64 EP ti TH 81 3- 6- 00 SI 09 HE ve YR 80 20 20 DE NS OX 30 11 11 IN 1 PH DO E AR N 50 MA R CY MC G OF TA BL CY ET NT HI AN A 60 07 08 6 60 30 EA 23 RO Ac 50 -1 -[address] 29 BE ti 52 3- 7- 00 SI 24 RT ve 53 20 20 DE SO 50 11 11 N 1 PH EL AR IZ MA A CY E OF CY NT HI AN A TR 51 08 08 3 [address] Ac IA 67 -1 -[address] 68 EP ti MC 21 6- 6- 00 SI 41 HE ve IN 28 20 20 DE NS OL 20 11 11 ON 2 PH DO E AR N 0. MA R 1% CY CR OF EA M CY NT HI AN A LI 00 06 08 3 [address] Ac SI 17 -0 -[address] 80 EP ti NO 23 3- 1- 00 SI 47 HE ve WI 75 20 20 DE NS [place] 98 11 11 0 PH DO 10 AR N MA R MG CY TA OF BL ET CY NT HI AN A LE 00 05 07 5 [address] Ac VO 37 -2 -[address] 64 EP ti TH 81 3- 9- 00 SI 09 HE ve YR 80 20 20 DE NS OX 30 11 11 IN 1 PH DO E AR N 50 MA R CY MC G OF TA BL CY ET NT HI AN A 60 07 07 6 60 30 EA 23 RO Ac 50 -1 -[address] 29 BE ti 52 3- 3- 00 SI 24 RT ve 53 20 20 DE SO 50 11 11 N 1 PH EL AR IZ MA A CY E OF CY NT HI AN A 64 06 06 3 [address] Ac 67 -0 -[address] 80 EP ti 90 3- 0- 00 SI 47 HE ve 92 20 20 DE NS 90 11 11 6 PH DO AR N MA R CY OF CY NT HI AN A ON 68 06 06 0 12 30 71 WE Ac DA 46 -2 -2 .0 L- 24 HR ti NS 20 6- 6- 00 MA 67 MA ve ET 10 20 20 RT 5 N RO 53 11 11 II N 0 PH I HC AR WI L MA LL 4 CY IA MG # M E TA 10 BL 05 ET 91 WI 68 06 06 0 15 3 71 WE Ac OM 38 -2 -2 .0 L- 24 HR ti ET 20 6- 6- 00 MA 67 MA ve UGALDE 04 20 20 RT 6 N ZI 10 11 11 II NE 1 PH I AR WI 25 MA LL CY IA MG # M E TA 10 BL 05 ET 91 ME 59 06 06 0 20 10 WE Ac CL 74 -2 -2 .0 L- 24 HR ti IZ 60 6- 6- 00 MA 67 MA ve IN 12 20 20 RT 7 N E 10 11 11 II 25 6 PH I AR WI MG MA LL CY IA TA # M BL E ET 10 05 91 TR 00 06 06 6 50 25 EA 23 RO Ac IL 07 -2 -[address] 04 BE ti EP 80 2- 2- 00 SI 55 RT ve TA 35 20 20 0 DE SO L 75 11 11 N 30 2 PH EL 0 AR IZ MG MA A /5 CY E ML OF SEPULVEDA CY SP NT HI AN A LE 00 05 06 5 [address] Ac VO 37 -2 -[address] 64 EP ti TH 81 3- 1- 00 SI 09 HE ve YR 80 20 20 DE NS OX 30 11 11 IN 1 PH DO E AR N 50 MA R CY MC G OF TA BL CY ET NT HI AN A 64 06 06 3 [address] Ac 67 -0 -[address] 80 EP ti 90 3- 3- 00 SI 47 HE ve 92 20 20 DE NS 90 11 11 6 PH DO AR N MA R CY OF CY NT HI AN A LE 00 05 05 5 [address] Ac VO 37 -2 -[address] 64 EP ti TH 81 3- 3- 00 SI 09 HE ve YR 80 20 20 DE NS OX 30 11 11 IN 1 PH DO E AR N 50 MA R CY MC G OF TA BL CY ET NT HI AN A LE 00 01 04 3 [address] Ac VO 37 -2 -[address] 96 EP ti TH 81 6- 0- 00 SI 87 HE ve YR 80 20 20 DE NS OX 30 11 11 IN 1 PH DO E AR N 50 MA R CY MC G OF TA BL CY ET NT HI AN A DI 00 01 04 3 [address] Ac LA 07 -2 -[address] 96 EP ti NT 10 6- 0- 00 SI 88 HE ve IN 00 20 20 DE NS 72 11 11 50 4 PH DO AR N MG MA R CY IN FA OF TA B CY NT HI AN A PH 51 01 04 5 [address] Ac EN 67 -1 -[address] 77 EP ti YT 24 2- 1- 00 SI 56 HE ve OI 11 20 20 DE NS N 10 11 11 SO 3 PH DO D AR N EX MA R T CY 10 0 OF MG CY CA NT P HI AN A OX 68 04 04 0 18 30 EA 21 RO Ac CA 46 -0 -[address] 99 BE ti RB 20 5- 5- 00 SI 26 RT ve AZ 13 20 20 0 DE SO EP 80 11 11 N IN 1 PH EL E AR IZ 30 MA A 0 CY E MG OF TA BL CY ET NT HI AN A LO 45 06 03 3 [address] Ac RA 80 -3 -[address] 16 EP ti TA 20 0- 0- 00 SI 56 HE ve DI 65 20 20 DE NS NE 08 10 11 7 PH DO 10 AR N MA R MG CY TA OF BL ET CY NT HI AN A FL 00 03 03 3 [address] Ac UT 05 -2 -[address] 88 EP ti IC 43 8- 8- 00 SI 04 HE ve 27 20 20 DE NS ON 09 11 11 E 9 PH DO WI AR N OP MA R CY 50 OF MC G CY SP NT RA HI Y AN A LE 00 01 03 3 [address] Ac VO 37 -2 -[address] 96 EP ti TH 81 6- 2- 00 SI 87 HE ve YR 80 20 20 DE NS OX 30 11 11 IN 1 PH DO E AR N 50 MA R CY MC G OF TA BL CY ET NT HI AN A DI 00 01 03 3 [address] Ac LA 07 -2 -[address] 96 EP ti NT 10 6- 2- 00 SI 88 HE ve IN 00 20 20 DE NS 72 11 11 50 4 PH DO AR N MG MA R CY IN FA OF TA B CY NT HI AN A PH 51 01 02 5 [address] Ac EN 67 -1 -[address] 77 EP ti YT 24 2- 5- 00 SI 56 HE ve OI 11 20 20 DE NS N 10 11 11 SO 3 PH DO D AR N EX MA R T CY 10 0 OF MG CY CA NT P HI AN A LE 00 01 02 3 [address] Ac VO 37 -2 -[address] 96 EP ti TH 81 6- 3- 00 SI 87 HE ve YR 80 20 20 DE NS OX 30 11 11 IN 1 PH DO E AR N 50 MA R CY MC G OF TA BL CY ET NT HI AN A DI 00 01 02 3 [address] Ac LA 07 -2 -[address] 96 EP ti NT 10 6- 3- 00 SI 88 HE ve IN 00 20 20 DE NS 72 11 11 50 4 PH DO AR N MG MA R CY IN FA OF TA B CY NT HI AN A DI 00 01 01 3 [address] Ac LA 07 -2 -[address] 96 EP ti NT 10 6- 6- 00 SI 88 HE ve IN 00 20 20 DE NS 72 11 11 50 4 PH DO AR N MG MA R CY IN FA OF TA B CY NT HI AN A LE 00 01 01 3 [address] Ac VO 37 -2 -[address] 96 EP ti TH 81 6- 6- 00 SI 87 HE ve YR 80 20 20 DE NS OX 30 11 11 IN 1 PH DO E AR N 50 MA R CY MC G OF TA BL CY ET NT HI AN A PH 51 01 01 5 [address] Ac EN 67 -1 -[address] 77 EP ti YT 24 2- 2- 00 SI 56 HE ve OI 11 20 20 DE NS N 10 11 11 SO 3 PH DO D AR N EX MA R T CY 10 0 OF MG CY CA NT P HI AN A LO 45 06 01 3 [address] Ac RA 80 -3 -[address] 16 EP ti TA 20 0- 7- 00 SI 56 HE ve DI 65 20 20 DE NS NE 08 10 11 7 PH DO 10 AR N MA R MG CY TA OF BL ET CY NT HI AN A FA 16 09 01 2 [address] Ac MO 71 -2 -[address] 28 EP ti TI 40 4- 5- 00 SI 73 HE ve DI 36 20 20 DE NS NE 10 10 11 4 PH DO 20 AR N MA R MG CY TA OF BL ET CY NT HI AN A LE 00 12 01 4 [address] Ac VO 37 -0 -[address] 31 EP ti TH 81 8- 5- 00 SI 09 HE ve YR 80 20 20 DE NS OX 50 10 11 IN 1 PH DO E AR N 75 MA R CY MC G OF TA BL CY ET NT HI AN A LE 00 12 12 4 [address] Ac VO 37 -0 -[address] 31 EP ti TH 81 8- 8- 00 SI 09 HE ve YR 80 20 20 DE NS OX 50 10 10 IN 1 PH DO E AR N 75 MA R CY MC G OF TA BL CY ET NT HI AN A PH 51 08 11 3 [address] Ac EN 67 -1 -[address] 65 EP ti YT 24 0- 6- 00 SI 76 HE ve OI 11 20 20 DE NS N 10 10 10 SO 3 PH DO D AR N EX MA R T CY 10 0 OF MG CY CA NT P HI AN A LE 00 08 11 3 [address] Ac VO 37 -1 -[address] 65 EP ti TH 81 0- 8- 00 SI 65 HE ve YR 80 20 20 DE NS OX 50 10 10 IN 1 PH DO E AR N 75 MA R CY MC G OF TA BL CY ET NT HI AN A FA 16 09 11 2 [address] Ac MO 71 -2 -[address] 28 EP ti TI 40 4- 8- 00 SI 73 HE ve DI 36 20 20 DE NS NE 10 10 10 4 PH DO 20 AR N MA R MG CY TA OF BL ET CY NT HI AN A PH 51 08 10 3 [address] Ac EN 67 -1 -[address] 65 EP ti YT 24 0- 3- 00 SI 76 HE ve OI 11 20 20 DE NS N 10 10 10 SO 3 PH DO D AR N EX MA R T CY 10 0 OF MG CY CA NT P HI AN A NE 24 10 10 0 10 5 EA 19 LA Ac OM 20 -0 -[address] 44 WS ti YC 80 7- 7- 00 SI 80 ON ve IN 63 20 20 DE -P 56 [address] YM AR OR YX MA G IN CY -H C OF EA R CY SEPULVEDA NT SP HI AN A LE 00 08 10 3 [address] Ac VO 37 -1 -[address] 65 EP ti TH 81 0- 7- 00 SI 65 HE ve YR 80 20 20 DE NS OX 50 10 10 IN 1 PH DO E AR N 75 MA R CY MC G OF TA BL CY ET NT HI AN A FA 16 09 09 2 [address] Ac MO 71 -2 -[address] 28 EP ti TI 40 4- 4- 00 SI 73 HE ve DI 36 20 20 DE NS NE 10 10 10 4 PH DO 20 AR N MA R MG CY TA OF BL ET CY NT HI AN A PH 51 08 09 3 [address] Ac EN 67 -1 -[address] 65 EP ti YT 24 0- 3- 00 SI 76 HE ve OI 11 20 20 DE NS N 10 10 10 SO 3 PH DO D AR N EX MA R T CY 10 0 OF MG CY CA NT P HI AN A FL 00 09 09 0 16 30 EA 19 LA Ac UT 05 -0 -[address] 05 WS ti IC 43 9- 9- 00 SI 84 ON ve 27 20 20 DE ON 09 [address] WI AR OR OP MA G CY 50 OF MC G CY SP NT RA HI Y AN A LE 00 08 09 3 [address] Ac VO 37 -1 -[address] 65 EP ti TH 81 0- 9- 00 SI 65 HE ve YR 80 20 20 DE NS OX 50 10 10 IN 1 PH DO E AR N 75 MA R CY MC G OF TA BL CY ET NT HI AN A LI 00 12 08 11 [address] Ac SI 17 -0 -[address] 37 EP ti NO 23 1- 1- 00 SI 44 HE ve WI 75 20 20 DE NS IL 96 09 10 0 PH DO 10 AR N MA R MG CY TA OF BL ET CY NT HI AN A LE 00 08 08 3 [address] Ac VO 37 -1 -[address] 65 EP ti TH 81 0- 0- 00 SI 65 HE ve YR 80 20 20 DE NS OX 50 10 10 IN 1 PH DO E AR N 75 MA R CY MC G OF TA BL CY ET NT HI AN A PH 51 08 08 3 [address] Ac EN 67 -1 -[address] 65 EP ti YT 24 0- 0- 00 SI 76 HE ve OI 11 20 20 DE NS N 10 10 10 SO 3 PH DO D AR N EX MA R T CY 10 0 OF MG CY CA NT P HI AN A LE 00 05 08 5 30 30 EA 17 LA Ac VO 37 -1 -[address] 56 WS ti TH 81 1- 6- 00 SI 48 ON ve YR 81 20 20 DE OX 30 [address] E AR OR 12 MA G 5 CY MC G OF TA BL CY ET NT HI AN A LI 00 12 07 11 [address] Ac SI 17 -0 -[address] 37 EP ti NO 23 1- 9- 00 SI 44 HE ve WI 75 20 20 DE NS IL 96 09 10 0 PH DO 10 AR N MA R MG CY TA OF BL ET CY NT HI AN A LO 45 06 07 3 [address] Ac RA 80 -3 -[address] 16 EP ti TA 20 0- 9- 00 SI 56 HE ve DI 65 20 20 DE NS NE 08 10 10 7 PH DO 10 AR N MA R MG CY TA OF BL ET CY NT HI AN A PH 51 02 07 5 [address] Ac EN 67 -1 -[address] 44 EP ti YT 24 9- 5- 00 SI 55 HE ve OI 11 20 20 DE NS N 10 10 10 SO 3 PH DO D AR N EX MA R T CY 10 0 OF MG CY CA NT P HI AN A LE 00 05 07 5 30 30 EA 17 LA Ac VO 37 -1 -[address] 56 WS ti TH 81 1- 7- SI 48 ON ve YR 81 20 20 DE OX 30 [address] E AR OR 12 MA G 5 CY MC G OF TA BL CY ET NT HI AN A LI 00 12 06 11 [address] Ac SI 17 -0 -[address] 37 EP ti NO 23 1- 0- 00 SI 44 HE ve WI 75 20 20 DE NS IL 96 09 10 0 PH DO 10 AR N MA R MG CY TA OF BL ET CY NT HI AN A NA 00 06 06 3 [address] Ac SO 08 -3 -[address] 16 EP ti NE 51 0- 0- 00 SI 55 HE ve X 28 20 20 DE NS 50 80 10 10 1 PH DO MC AR N G MA R NA CY SA L OF SP RA CY Y NT HI AN A LO 45 06 06 3 [address] Ac RA 80 -3 -[address] 16 EP ti TA 20 0- 0- 00 SI 56 HE ve DI 65 20 20 DE NS NE 08 10 10 7 PH DO 10 AR N MA R MG CY TA OF BL ET CY NT HI AN A AZ 00 06 06 0 6. [address] Ac IT 09 -3 -[address] 16 EP ti HR 37 0- 0- 0 SI 57 HE ve OM 14 20 20 DE NS YC 61 10 10 IN 8 PH DO AR N 25 MA R 0 CY MG OF TA BL CY ET NT HI AN A PH 51 02 06 5 [address] Ac EN 67 -1 -[address] 44 EP ti YT 24 9- 5- 00 SI 55 HE ve OI 11 20 20 DE NS N 10 10 10 SO 3 PH DO D AR N EX MA R T CY 10 0 OF MG CY CA NT P HI AN A LE 00 05 06 5 30 30 EA 17 LA Ac VO 37 -1 -[address] 56 WS ti TH 81 1- 0- 00 SI 48 ON ve YR 81 20 20 DE OX 30 [address] E AR OR 12 MA G 5 CY MC G OF TA BL CY ET NT HI AN A LI 00 12 06 11 [address] Ac SI 17 -0 -[address] 37 EP ti NO 23 1- - 00 SI 44 HE ve WI 75 20 20 DE NS [place] 96 09 10 0 PH DO 10 AR N MA R MG CY TA OF BL ET CY NT HI AN A PH 51 02 05 5 [address] Ac EN 67 -1 -[address] 44 EP ti YT 24 9 7- 00 SI 55 HE ve OI 11 20 20 DE NS N 10 10 10 SO 3 PH DO D AR N EX MA R T CY 10 0 OF MG CY CA NT P HI AN A NE 24 05 05 0 10 10 EA 17 LA Ac OM 20 -1 -[address] 56 WS ti YC 80 1- 1- 00 SI 49 ON ve IN 63 20 20 DE -P 11 [address] YM AR OR YX MA G IN CY -H C OF EA R CY SO NT LN HI AN A LE 00 05 05 5 30 30 EA 17 LA Ac VO 37 -1 -[address] 56 WS ti TH 81 1- 1- 00 SI 48 ON ve YR 81 20 20 DE OX 30 [address] E AR OR 12 MA G 5 CY MC G OF TA BL CY ET NT HI AN A ME 00 04 05 1 21 6 EA 17 LA Ac TH 78 -1 -[address] 15 WS ti YL 15 2- 3- 00 SI 51 ON ve WI 02 20 20 DE ED 20 [address] SO AR OR LO MA G NE CY 4 OF MG CY DO NT SE HI PK AN A LI 00 12 04 11 [address] Ac SI 17 -0 -[address] 37 EP ti NO 23 1- 9- 00 SI 44 HE ve WI 75 20 20 DE NS IL 96 09 10 0 PH DO 10 AR N MA R MG CY TA OF BL ET CY NT HI AN A LE 00 02 04 6 [address] Ac VO 37 -1 -[address] 44 EP ti TH 81 9- 6- 00 SI 56 HE ve YR 81 20 20 DE NS OX 50 10 10 IN 1 PH DO E AR N 15 MA R 0 CY MC G OF TA BL CY ET NT HI AN A PH 51 02 04 5 [address] Ac EN 67 -1 -[address] 44 EP ti YT 24 9- 5- 00 SI 55 HE ve OI 11 20 20 DE NS N 10 10 10 SO 3 PH DO D AR N EX MA R T CY 10 0 OF MG CY CA NT P HI AN A ME 00 04 04 1 21 6 EA 17 LA Ac TH 78 -1 -[address] 15 WS ti YL 15 2- 2- 00 SI 51 ON ve WI 02 20 20 DE ED 20 [address] SO AR OR LO MA G NE CY 4 OF MG CY DO NT SE HI PK AN A AM 00 04 04 0 40 20 EA 17 LA Ac OX 09 -1 -[address] 15 WS ti -C 32 2- 2- 00 SI 53 ON ve LA 27 20 20 DE V 53 [address] 5- AR OR 12 MA G 5 CY MG OF TA BL CY ET NT HI AN A CE 45 04 04 3 30 30 EA 17 LA Ac TI 80 -1 -[address] 15 WS ti RI 20 2- 2- 00 SI 54 ON ve ZI 91 20 20 DE NE [address] HC AR OR L MA G 10 CY MG OF TA CY BL NT ET HI AN A LI 00 12 04 11 [address] Ac SI 17 -0 -[address] 37 EP ti NO 23 1 SI 44 HE ve WI 75 20 20 DE NS [place] 96 09 10 0 PH DO 10 AR N MA R MG CY TA OF BL ET CY NT HI AN A LE 00 02 03 6 [address] Ac VO 37 -1 -[address] 44 EP ti TH 81 SI 56 HE ve YR 81 20 20 DE NS OX 50 10 10 IN 1 PH DO E AR N 15 MA R 0 CY MC G OF TA BL CY ET NT HI AN A NI 00 02 02 00 [address] Ac TR 18 -1 -[address] 44 EP ti OF 50 9 6 SI 54 HE ve UR 12 20 20 DE NS AN 20 10 10 TO 1 PH DO IN AR N MA R MO CY NO -M OF CR CY NT 10 HI 0 AN MG A PH 51 02 02 00 [address] Ac EN 67 -1 -[address] 44 EP ti YT 24 SI 55 HE ve OI 11 20 20 DE NS N 10 10 10 SO 3 PH DO D AR N EX MA R T CY 10 0 OF MG CY NT CA HI P AN A LE 00 02 02 00 [address] Ac VO 37 -1 -[address] 44 EP ti TH 81 9 6 SI 56 HE ve YR 81 20 20 DE NS OX 50 10 10 IN 1 PH DO E AR N 15 MA R 0 CY MC G OF TA CY BL NT ET HI AN A FA 16 02 02 00 [address] Ac MO 71 -0 -[address] 22 EP ti TI 40 3 SI 14 HE ve DI 36 20 20 DE NS NE 10 10 10 4 PH DO 20 AR N MA R MG CY TA OF BL CY ET NT HI AN A PO 00 02 02 00 [address] Ac LY 57 -0 -[address] 22 EP ti ET 40 3- 00 SI 13 HE ve HY 41 20 20 0 DE NS LE 20 10 10 NE 5 PH DO AR N GL MA R YC CY OL OF 33 CY 50 NT HI PO AN WD A 60 01 02 01 [address] Ac 25 -1 -[address] 94 EP ti 80 3- 1- 00 SI 73 HE ve 23 20 20 0 DE NS 91 10 10 6 PH DO AR N MA R CY OF CY NT HI AN A LI 00 12 02 [address] Ac SI 17 -0 -[address] 37 EP ti NO 23 1- 8- 00 SI 44 HE ve WI 75 20 20 DE NS [place] 96 09 10 0 PH DO 10 AR N MA R MG CY TA OF BL CY ET NT HI AN A 60 01 01 00 [address] Ac 25 -1 -[address] 94 EP ti 80 3- 8- 00 SI 73 HE ve 23 20 20 0 DE NS 91 10 10 6 PH DO AR N MA R CY OF CY NT HI AN A PH 51 12 01 01 [address] Ac EN 67 -2 -[address] 76 EP ti YT 24 9- 8- 00 SI 33 HE ve OI 11 20 20 0 DE NS N 10 09 10 SO 3 PH DO D AR N EX MA R T CY 10 0 OF MG CY NT CA HI P AN A AZ 00 06 25 00 6. [address] Ac IT 09 -1 -[address] 94 EP ti HR 37 3- 8- 0 SI 72 HE ve OM 14 20 20 DE NS YC 61 10 10 IN 8 PH DO AR N 25 MA R 0 CY MG OF TA CY BL NT ET HI AN A LE 00 12 06 26 [address] Ac VO 37 -0 -[address] 37 EP ti TH 81 1- 8- 00 SI 43 HE ve YR 81 20 20 DE NS OX 90 09 10 IN 1 PH DO E AR N 20 MA R 0 CY MC G OF TA CY BL NT ET HI AN A PI 00 06 25 00 30 30 EA 16 RO Ac RO 09 -1 -[address] 02 LA ti XI 30 9 8- 00 SI 65 ND ve CA 75 20 20 DE O M 70 10 10 CH 20 5 PH EN AR G MG MA PS CY C CA PS OF UL CY E NT HI AN A LE 00 05 25 01 [address] Ac VO 37 -0 -[address] 37 EP ti TH 81 1- 4- 00 SI 43 HE ve YR 81 20 20 DE NS OX 90 09 10 IN 1 PH DO E AR N 20 MA R 0 CY MC G OF TA CY BL NT ET HI AN A LI 00 12 06 25 [address] Ac SI 17 -0 -[address] 37 EP ti NO 23 1- 4- 00 SI 44 HE ve WI 75 20 20 DE NS [place] 96 09 10 0 PH DO 10 AR N MA R MG CY TA OF BL CY ET NT HI AN A PH 51 12 01 00 [address] Ac EN 67 -2 -[address] 76 EP ti YT 24 9- 4- 00 SI 33 HE ve OI 11 20 20 0 DE NS N 10 09 10 SO 3 PH DO D AR N EX MA R T CY 10 0 OF MG CY NT CA HI P AN A PH 51 07 12 04 [address] Ac EN 67 -3 -[address] 66 EP ti YT 24 0- 7- 00 SI 70 HE ve OI 11 20 20 0 DE NS N 10 09 09 SO 3 PH DO D AR N EX MA R T CY 10 0 OF MG CY NT CA HI P AN A LE 00 12 12 00 [address] Ac VO 37 -0 -[address] 37 EP ti TH 81 1- 7- 00 SI 43 HE ve YR 81 20 20 DE NS OX 90 09 09 IN 1 PH DO E AR N 20 MA R 0 CY MC G OF TA CY BL NT ET HI AN A LI 00 12 12 00 [address] Ac SI 17 -0 -[address] 37 EP ti NO 23 1- 7- 00 SI 44 HE ve WI 75 20 20 DE NS IL 96 09 09 0 PH DO 10 AR N MA R MG CY TA OF BL CY ET NT HI AN A NE 24 11 12 00 10 5 EA 15 LA Ac OM 20 -2 -[address] 26 WS ti YC 80 3- 3- 00 SI 04 ON ve IN 63 20 20 DE -P 11 [address] YM AR OR YX MA G IN CY -H C OF EA CY R NT SO HI LN AN A LI 00 11 11 00 [address] Ac SI 17 -0 -[address] 97 EP ti NO 23 3- 9- 00 SI 09 HE ve WI 75 20 20 DE NS IL 96 09 09 0 PH DO 10 AR N MA R MG CY TA OF BL CY ET NT HI AN A PH 51 07 11 03 [address] Ac EN 67 -3 -[address] 66 EP ti YT 24 0- 5- 00 SI 70 HE ve OI 11 20 20 0 DE NS N 10 09 09 SO 3 PH DO D AR N EX MA R T CY 10 0 OF MG CY NT CA HI P AN A LE 00 09 11 02 [address] Ac VO 37 -0 -[address] 07 EP ti TH 81 1- 5- 00 SI 70 HE ve YR 81 20 20 DE NS OX 90 09 09 IN 1 PH DO E AR N 20 MA R 0 CY MC G OF TA CY BL NT ET HI AN A 00 10 10 00 [address] Ac 00 -1 -[address] 66 EP ti 54 2- 2- 00 SI 27 HE ve 17 20 20 0 DE NS 72 09 09 3 PH DO AR N MA R CY OF CY NT HI AN A LE 00 09 10 01 [address] Ac VO 37 -0 -[address] 07 EP ti TH 81 1- 8- 00 SI 70 HE ve YR 81 20 20 DE NS OX 90 09 09 IN 1 PH DO E AR N 20 MA R 0 CY MC G OF TA CY BL NT ET HI AN A 68 09 10 00 [address] Ac 82 -2 -[address] 38 EP ti 00 3- 8- 00 SI 92 HE ve 06 20 20 DE NS 30 09 09 9 PH DO AR N MA R CY OF CY NT HI AN A LO 60 09 10 00 [address] Ac RA 50 -2 -[address] 38 EP ti TA 50 3- 8- 00 SI 91 HE ve DI 14 20 20 DE NS NE 70 09 09 8 PH DO 10 AR N MA R MG CY TA OF BL CY ET NT HI AN A PH 51 07 10 02 [address] Ac EN 67 -3 -[address] 66 EP ti YT 24 0- 8- 00 SI 70 HE ve OI 11 20 20 0 DE NS N 10 09 09 SO 3 PH DO D AR N EX MA R T CY 10 0 OF MG CY NT CA HI P AN A ME 00 09 09 00 [address] Ac CL 53 -0 -[address] 18 EP ti IZ 63 9- 4- 00 SI 06 HE ve IN 98 20 20 DE NS E 50 09 09 12 1 PH DO .5 AR N MA R MG CY TA OF BL CY ET NT HI AN A PH 51 07 09 01 [address] Ac EN 67 -3 -[address] 66 EP ti YT 24 0- 0- 00 SI 70 HE ve OI 11 20 20 0 DE NS N 10 09 09 SO 3 PH DO D AR N EX MA R T CY 10 0 OF MG CY NT CA HI P AN A NY 00 11 09 02 [address] 16 -2 -[address] 39 EP ti AT 80 4- 0- 00 SI 90 HE ve IN 05 20 20 DE NS 43 08 09 10 0 PH DO 0, AR N 00 MA R 0 CY UN IT OF /G CY M NT CR HI EA AN M A LE 00 09 09 00 [address] Ac VO 37 -0 -[address] 07 EP ti TH 81 1- 0- 00 SI 70 HE ve YR 81 20 20 DE NS OX 90 09 09 IN 1 PH DO E AR N 20 MA R 0 CY MC G OF TA CY BL NT ET HI AN A LE 00 08 08 00 [address] Ac VO 37 -0 -[address] 70 EP ti TH 81 3- 3- 00 SI 51 HE ve YR 82 20 20 DE NS OX 10 09 09 IN 1 PH DO E AR N 30 MA R 0 CY MC G OF TA CY BL NT ET HI AN A PH 51 07 08 00 [address] Ac EN 67 -3 -[address] 66 EP ti YT 24 0- 3- 00 SI 70 HE ve OI 11 20 20 0 DE NS N 10 09 09 SO 3 PH DO D AR N EX MA R T CY 10 0 OF MG CY NT CA HI P AN A 00 07 07 00 30 7 EA 13 RO Ac 37 -2 -[address] 56 LA ti 80 1- 0- 00 SI 84 ND ve 15 20 20 DE O 50 09 09 CH 5 PH EN AR G MA PS CY C OF CY NT HI AN A LE 00 07 07 [address] Ac VO 37 -0 -[address] 40 EP ti TH 81 7- 6- 00 SI 55 HE ve YR 82 20 20 DE NS OX 10 09 09 IN 1 PH DO E AR N 30 MA R 0 CY MC G OF TA CY BL NT ET HI AN A PH 51 07 07 [address] Ac EN 67 -0 -[address] 40 EP ti YT 24 7- 6- 00 SI 54 HE ve OI 11 20 20 DE NS N 10 09 09 SO 3 PH DO D AR N EX MA R T CY 10 0 OF MG CY NT CA HI P AN A PH 51 02 07 [address] Ac EN 67 -2 -[address] 56 EP ti YT 24 0- 2- 00 SI 07 HE ve OI 11 20 20 DE NS N 10 09 09 SO 3 PH DO D AR N EX MA R T CY 10 0 OF MG CY NT CA HI P AN A PH 51 02 06 03 [address] Ac EN 67 -2 -[address] 56 EP ti YT 24 0- 4- 00 SI 07 HE ve OI 11 20 20 DE NS N 10 09 09 SO 3 PH DO D AR N EX MA R T CY 10 0 OF MG CY NT CA HI P AN A LE 00 01 06 04 [address] Ac VO 37 -2 -[address] 15 EP ti TH 81 0- 4- 00 SI 88 HE ve YR 82 20 20 DE NS OX 10 09 09 IN 1 PH DO E AR N 30 MA R 0 CY MC G OF TA CY BL NT ET HI AN A LE 00 01 05 03 [address] Ac VO 37 -2 -[address] 15 EP ti TH 81 0- 7- 00 SI 88 HE ve YR 82 20 20 DE NS OX 10 09 09 IN 1 PH DO E AR N 30 MA R 0 CY MC G OF TA CY BL NT ET HI AN A PH 51 02 05 02 [address] Ac EN 67 -2 -[address] 56 EP ti YT 24 0- 7- 00 SI 07 HE ve OI 11 20 20 DE NS N 10 09 09 SO 3 PH DO D AR N EX MA R T CY 10 0 OF MG CY NT CA HI P AN A LO 60 03 04 00 [address] Ac RA 50 -2 -[address] 04 EP ti TA 50 4- 9- 00 SI 15 HE ve DI 14 20 20 DE NS NE 70 09 09 1 PH DO 10 AR N MA R MG CY TA OF BL CY ET NT HI AN A NA 00 03 04 00 [address] Ac SO 08 -2 -[address] 04 EP ti NE 51 4- 9- 00 SI 14 HE ve X 28 20 20 DE NS 50 80 09 09 1 PH DO MC AR N G MA R NA CY SA L OF SP CY RA NT Y HI AN A PH 51 02 04 01 [address] Ac EN 67 -2 -[address] 56 EP ti YT 24 0- 9- 00 SI 07 HE ve OI 11 20 20 DE NS N 10 09 09 SO 3 PH DO D AR N EX MA R T CY 10 0 OF MG CY NT CA HI P AN A LE 00 01 03 02 [address] Ac VO 37 -2 -[address] 15 EP ti TH 81 0- 6- 00 SI 88 HE ve YR 82 20 20 DE NS OX 10 09 09 IN 1 PH DO E AR N 30 MA R 0 CY MC G OF TA CY BL NT ET HI AN A NY 00 11 03 01 [address] 16 -2 -[address] 39 EP ti AT 80 4- 2- 00 SI 90 HE ve IN 05 20 20 DE NS 43 08 09 10 0 PH DO 0, AR N 00 MA R 0 CY UN IT OF /G CY M NT CR HI EA AN M A PH 51 02 02 [address] Ac EN 67 -2 -[address] 56 EP ti YT 24 0- 6- 00 SI 07 HE ve OI 11 20 20 DE NS N 10 09 09 SO 3 PH DO D AR N EX MA R T CY 10 0 OF MG CY NT CA HI P AN A LE 00 01 02 01 [address] Ac VO 37 -2 -[address] 15 EP ti TH 81 0- 6- 00 SI 88 HE ve YR 82 20 20 DE NS OX 10 09 09 IN 1 PH DO E AR N 30 MA R 0 CY MC G OF TA CY BL NT ET HI AN A LE 00 01 01 [address] Ac VO 37 -2 -[address] 15 EP ti TH 81 0- 0- 00 SI 88 HE ve YR 82 20 20 DE NS OX 10 09 09 IN 1 PH DO E AR N 30 MA R 0 CY MC G OF TA CY BL NT ET HI AN A PH 51 09 01 [address] Ac EN 67 -2 -[address] 59 EP ti YT 24 4- 0- 00 SI 60 HE ve OI 11 20 20 DE NS N 10 08 09 SO 3 PH DO D AR N EX MA R T CY 10 0 OF MG CY NT CA HI P AN A LO 60 11 01 01 [address] Ac RA 50 -2 -[address] 42 EP ti TA 50 5- 5- 00 SI 65 HE ve DI 14 20 20 DE NS NE 70 08 09 1 PH DO 10 AR N MA R MG CY TA OF BL CY ET NT HI AN A LE 00 09 01 03 [address] Ac VO 37 -2 -[address] 62 EP ti TH 81 6- 1- 00 SI 90 HE ve YR 82 20 20 DE NS OX 10 08 09 IN 1 PH DO E AR N 30 MA R 0 CY MC G OF TA CY BL NT ET HI AN A PH 51 09 01 [address] Ac EN 67 -2 -[address] 59 EP ti YT 24 4- 1- 00 SI 60 HE ve OI 11 20 20 DE NS N 10 08 09 SO 3 PH DO D AR N EX MA R T CY 10 0 OF MG CY NT CA HI P AN A AV 00 11 12 00 7. [address] Ac EL 08 -2 -[address] 42 EP ti OX 51 5- 4- 0 SI 64 HE ve 73 20 20 DE NS 40 30 08 08 0 1 PH DO MG AR N MA R TA CY BL ET OF CY NT HI AN A LO 60 11 12 00 [address] Ac RA 50 -2 -[address] 42 EP ti TA 50 5- 4- 00 SI 65 HE ve DI 14 20 20 DE NS NE 70 08 08 1 PH DO 10 AR N MA R MG CY TA OF BL CY ET NT HI AN A LE 00 09 12 02 [address] Ac VO 37 -2 -[address] 62 EP ti TH 81 6- 4- 00 SI 90 HE ve YR 82 20 20 DE NS OX 10 08 08 IN 1 PH DO E AR N 30 MA R 0 CY MC G OF TA CY BL NT ET HI AN A ME 00 11 12 00 [address] Ac TH 78 -2 -[address] 42 EP ti YL 15 5- 4- 00 SI 66 HE ve WI 02 20 20 DE NS ED 20 08 08 NI 7 PH DO SO AR N LO MA R NE CY 4 OF MG CY NT DO HI SE AN PK A NY 00 11 12 00 [address] 16 -2 -[address] 39 EP ti AT 80 4- 4- 00 SI 90 HE ve IN 05 20 20 DE NS 43 08 08 10 0 PH DO 0, AR N 00 MA R 0 CY UN IT OF /G CY M NT CR HI EA AN M A PH 51 09 12 02 [address] Ac EN 67 -2 -[address] 59 EP ti YT 24 4- 4- 00 SI 60 HE ve OI 11 20 20 DE NS N 10 08 08 SO 3 PH DO D AR N EX MA R T CY 10 0 OF MG CY NT CA HI P AN A PH 51 09 11 01 [address] Ac EN 67 -2 -[address] 59 EP ti YT 24 4- 7- 00 SI 60 HE ve OI 11 20 20 DE NS N 10 08 08 SO 3 PH DO D AR N EX MA R T CY 10 0 OF MG CY NT CA HI P AN A LE 00 09 11 01 [address] Ac VO 37 -2 -[address] 62 EP ti TH 81 6- 7- 00 SI 90 HE ve YR 82 20 20 DE NS OX 10 08 08 IN 1 PH DO E AR N 30 MA R 0 CY MC G OF TA CY BL NT ET HI AN A LE 00 09 10 00 30 30 EA 99 No Ac VO 37 -2 -[address] 62 t ti TH 81 6- 9- 00 SI 90 Av ve YR 82 20 20 DE ai OX 10 08 08 la IN 1 PH bl E AR e 30 MA 0 CY MC G OF TA CY BL NT ET HI AN A PH 51 09 10 00 90 30 EA 99 No Ac EN 67 -2 -[address] 59 t ti YT 24 4- 9- 00 SI 60 Av ve OI 11 20 20 DE ai N 10 08 08 la SO 3 PH bl D AR e EX MA T CY 10 0 OF MG CY NT CA HI P AN A PH 51 03 09 05 90 30 EA 97 No Ac EN 67 -2 -[address] 36 t ti YT 24 6- 1- 00 SI 25 Av ve OI 11 20 20 DE ai N 10 08 08 la SO 3 PH bl D AR e EX MA T CY 10 0 OF MG CY NT CA HI P AN A PH 51 03 08 04 90 30 EA 97 No Ac EN 67 -2 -[address] 36 t ti YT 24 6- 1- 00 SI 25 Av ve OI 11 20 20 DE ai N 10 08 08 la SO 3 PH bl D AR e EX MA T CY 10 0 OF MG CY NT CA HI P AN A 00 07 07 00 15 3 EA 98 No Ac 17 -1 -[address] 67 t ti 26 0- 7- 00 SI 78 Av ve 35 20 20 DE ai 97 08 08 la 0 PH bl AR e MA CY OF CY NT HI AN A PH 51 03 07 03 90 30 EA 97 No Ac EN 67 -2 -[address] 36 t ti YT 24 6- 3- 00 SI 25 Av ve OI 11 20 20 DE ai N 10 08 08 la SO 3 PH bl D AR e EX MA T CY 10 0 OF MG CY NT CA HI P AN A PH 51 03 06 02 90 30 EA 97 No Ac EN 67 -2 -[address] 36 t ti YT 24 6- 5- 00 SI 25 Av ve OI 11 20 20 DE ai N 10 08 08 la SO 3 PH bl D AR e EX MA T CY 10 0 OF MG CY NT CA HI P AN A PH 51 03 05 01 90 30 EA 97 No Ac EN 67 -2 -[address] 36 t ti YT 24 6- 8- 00 SI 25 Av ve OI 11 20 20 DE ai N 10 08 08 la SO 3 PH bl D AR e EX MA T CY 10 0 OF MG CY NT CA HI P AN A PO 51 02 04 00 25 15 ME 25 No Ac LY 99 -0 -1 5. D 42 t ti ET 10 6- 7- 00 CA 76 Av ve HY 45 20 20 0 RE 3 ai LE 75 08 08 la NE 8 PH bl AR e GL MA YC CY OL LL 33 C 50 PO WD BI 00 02 04 00 3. 9 ME 25 No Ac SA 71 -0 -1 00 D 42 t ti C- 30 6- 7- 0 CA 76 Av ve EV 10 20 20 RE 8 ai AC 90 08 08 la 5 PH bl 10 AR e MA MG CY SEUPLVEDA LL PP C OS IT OR Y CI 00 02 04 00 10 15 ME 25 No Ac WI 06 -0 -1 .0 D 42 t ti O 58 6- 7- 00 CA 77 Av ve HC 53 20 20 RE 2 ai 11 08 08 la OT 0 PH bl IC AR e MA SEPULVEDA CY SP EN LL SI C ON 00 02 04 00 20 5 ME 25 No Ac 60 -0 -1 .0 D 42 t ti 35 6- 7- 00 CA 76 Av ve 46 20 20 RE 7 ai 83 08 08 la 2 PH bl AR e MA CY LL C BA 00 02 04 00 15 3 ME 25 No Ac CI 16 -0 -1 .0 D 42 t ti TR 80 6- 7- 00 CA 77 Av ve AC 02 20 20 RE 0 ai IN 13 08 08 la -P 5 PH bl OL AR e YM MA YX CY IN LL OI C NT ME NT PH 51 03 04 00 9. 3 ME 25 No Ac EN 67 -0 -1 00 D 97 t ti YT 24 1- 7- 0 CA 60 Av ve OI 11 20 20 RE 8 ai N 10 08 08 la SO 3 PH bl D AR e EX MA T CY 10 0 LL MG C CA P MA 00 02 04 00 20 5 ME 25 No Ac PA 90 -0 -1 .0 D 42 t ti P 41 6- 7- 00 CA 76 Av ve 50 98 20 20 RE 5 ai 0 86 08 08 la MG 1 PH bl AR e TA MA BL CY ET LL C ME 00 03 04 00 21 6 EA 97 No Ac TH 78 -2 -[address] 36 t ti YL 15 6- 0- 00 SI 22 Av ve WI 02 20 20 DE ai ED 20 08 08 la NI 7 PH bl SO AR e LO MA NE CY 4 OF MG CY NT DO HI SE AN PK A PH 51 03 04 00 90 30 EA 97 No Ac EN 67 -2 -[address] 36 t ti YT 24 6- 0- 00 SI 25 Av ve OI 11 20 20 DE ai N 10 08 08 la SO 3 PH bl D AR e EX MA T CY 10 0 OF MG CY NT CA HI P AN A LO 60 03 04 00 20 20 EA 97 No Ac RA 50 -2 -[address] 36 t ti TA 50 6- 0- 00 SI 23 Av ve DI 14 20 20 DE ai NE 70 08 08 la 1 PH bl 10 AR e MA MG CY TA OF BL CY ET NT HI AN A NA 00 03 04 00 17 17 EA 97 No Ac SO 08 -2 -[address] 36 t ti NE 51 6- 0- 00 SI 24 Av ve X 28 20 20 DE ai 50 80 08 08 la 1 PH bl MC AR e G MA NA CY SA L OF SP CY RA NT Y HI AN A MA 00 02 04 00 1. 1 ME 25 No Ac PA 90 -1 -0 00 D 54 t ti P 41 1- 7- 0 CA 21 Av ve 50 98 20 20 RE 8 ai 0 86 08 08 la MG 1 PH bl AR e TA MA BL CY ET LL C PO 51 02 04 00 25 10 ME 25 No Ac LY 99 -2 -0 5. D 83 t ti ET 10 5- 7- 00 CA 42 Av ve HY 45 20 20 0 RE 4 ai LE 75 08 08 la NE 8 PH bl AR e GL MA YC CY OL LL 33 C 50 PO WD TH 00 02 04 00 4. 4 ME 25 No Ac ER 90 -1 -0 00 D 60 t ti A 45 4- 7- 0 CA 56 Av ve M 49 20 [address] 26 08 08 la US 1 PH bl AR e TA MA BL CY ET LL C NA 68 02 04 00 27 14 ME 25 No Ac WI 46 -0 -0 .0 D 42 t ti OX 20 6- 7- 00 CA 76 Av ve EN 19 20 20 RE 1 ai 00 08 08 la 50 5 PH bl 0 AR e MG MA CY TA BL LL ET C NY 51 02 04 00 15 3 ME [address] 67 -2 -0 .0 D 82 t ti AT 21 3- 7- 00 CA 42 Av ve IN 28 20 20 RE 2 ai 90 08 08 la 10 1 PH bl 0, AR e 00 MA 0 CY UN IT LL /G C M CR EA M DI 00 02 04 00 8. 8 ME 25 No Ac PH 90 -1 -0 00 D 54 t ti EN 45 1- 7- 0 CA 21 Av ve HY 30 [address] 66 08 08 la AM 1 PH bl IN AR e E MA 25 CY MG LL C CA PS UL E PH 51 03 04 00 90 30 ME 25 No Ac EN 67 -0 -0 .0 D 97 t ti YT 24 1- 7- 00 CA 60 Av ve OI 11 20 20 RE 8 ai N 10 08 08 la SO 3 PH bl D AR e EX MA T CY 10 0 LL MG C CA P MA 00 02 03 00 20 5 ME 25 No Ac PA 90 -0 -2 .0 D 42 t ti P 41 6- 6- 00 CA 76 Av ve 50 98 20 20 RE 5 ai 0 86 08 08 la MG 1 PH bl AR e TA MA BL CY ET LL C BI 00 02 03 00 3. 9 ME 25 No Ac SA 71 -0 -2 00 D 42 t ti C- 30 6- 6- 0 CA 76 Av ve EV 10 20 20 RE 8 ai AC 90 08 08 la 5 PH bl 10 AR e MA MG CY SEPULVEDA LL PP C OS IT OR Y PO 51 02 03 00 25 15 ME 25 No Ac LY 99 -0 -2 5. D 42 t ti ET 10 6- 6- 00 CA 76 Av ve HY 45 20 20 0 RE 3 ai LE 75 08 08 la NE 8 PH bl AR e GL MA YC CY OL LL 33 C 50 PO WD 00 02 03 00 20 5 ME 25 No Ac 60 -0 -2 .0 D 42 t ti 35 6- 6- 00 CA 76 Av ve 46 20 20 RE 7 ai 83 08 08 la 2 PH bl AR e MA CY LL C BA 00 02 03 00 15 3 ME 25 No Ac CI 16 -0 -2 .0 D 42 t ti TR 80 6- 6- 00 CA 77 Av ve AC 02 20 20 RE 0 ai IN 13 08 08 la -P 5 PH bl OL AR e YM MA YX CY IN LL OI C NT ME NT 00 01 03 00 7. 7 EA 96 No Ac 04 -3 -[address] 58 t ti 51 1- 6- 0 SI 48 Av ve 53 20 20 DE ai 02 08 08 la 0 PH bl AR e MA CY OF CY NT HI AN A TH 00 02 03 00 30 30 ME 25 No Ac ER 90 -1 -2 .0 D 60 t ti A 45 4- 6- 00 CA 56 Av ve M 49 20 [address] 26 08 08 la US 1 PH bl AR e TA MA BL CY ET LL C DI 00 02 03 00 30 30 ME 25 No Ac PH 90 -1 -2 .0 D 54 t ti EN 45 1- 6- 00 CA 21 Av ve HY 30 [address] 66 08 08 la AM 1 PH bl IN AR e E MA 25 CY MG LL C CA PS UL E PH 62 02 03 00 60 30 ME 25 No Ac EN 75 -0 -2 .0 D 42 t ti YT 60 6- 6- 00 CA 76 Av ve OI 40 20 20 RE 4 ai N 20 08 08 la SO 3 PH bl D AR e EX MA T CY 10 0 LL MG C CA P NA 68 02 03 00 60 30 ME 25 No Ac WI 46 -0 -2 .0 D 42 t ti OX 20 6- 6- 00 CA 76 Av ve EN 19 20 20 RE 1 ai 00 08 08 la 50 5 PH bl 0 AR e MG MA CY TA BL LL ET C CI 00 02 03 00 10 15 ME 25 No Ac WI 06 -0 -2 .0 D 42 t ti O 58 6- 6- 00 CA 77 Av ve HC 53 20 20 RE 2 ai 11 08 08 la OT 0 PH bl IC AR e MA SEPULVEDA CY SP EN LL SI C ON PH 51 12 03 01 12 30 EA 96 No Ac EN 67 -2 -[address] 05 t ti YT 24 1- 5- 00 SI 47 Av ve OI 11 20 20 0 DE ai N 10 07 08 la SO 3 PH bl D AR e EX MA T CY 10 0 OF MG CY NT CA HI P AN A Vital Signs 12-20-2012 15:24 Name Value Interpretat Reference Comment ion Range BP 95 mm[Hg] Diastolic BP Systolic 165 mm[Hg] Heart 78 /min Rate/Pulse O2% 98 % Respiratory 20 /min Rate Procedures Procedure DOS Code Location Performer Comment COMPREHEN [id number] [facility] OF [facility]ONE OF SIVE 7 [facility] PANEL NONEMERG A0120 FEDERATED FEDERATED TRNSPRT: 7 [facility] NON[facility]ER[facility] A0120 FEDERATED FEDERATED TRNSPRT: 7 [facility]SPORT [facility] COLLECTIO 95420 A C TALIBLA N VENOUS 7 NANCY FIELDS BLOOD PSC VENIPUNCT URE DRUG 98681 [facility] LAB MAX SCREEN 7 YOGESH YOGESH QUANTITAT HOLDINGS HOLDINGS [employer]OOK[employer] OXCARBAZE PINE GENERAL 01094 LAB MAX LAB MAX HEALTH 7 YOGESH YOGESH PANEL HOLDINGS HOLDINGS LIPID 59079 A C KILPELA PANEL 7 [place] [address] LAB MAX LAB MAX FREE 7 YOGESH YOGESH THYROXINE HOLDINGS HOLDINGS OPHTH 32475 [facility] 7 XM&EVAL COMPRHNSV ESTAB PT 1/> NONEMERG A0120 FEDERATED FEDERATED TRNSPRT: 7 MINI-BUS TRANSPORT TRANSPORT MTN ATION SER [facility]/OT SYS UNCLASSIF J3490 CAYETANO MONTEIRO IED DRUGS 7 [facility] INC INC RADIOLOGI 69632 CARLOS Reynoso 7 MEDICAL EXAMINATI IMAGING ON CHEST ASS SINGLE VIEW FRONTAL THER 39914 CAYETANO MONTEIRO PROPH/DX 7 [facility] NJX IV INC INC PUSH SINGLE/1S T SBST/DRUG NONEMERG A0120 FEDERATED FEDERATED TRNSPRT: 7 MINI-BUS TRANSPORT TRANSPORT MTN ATION SER [facility]/OTH SYS NONEMERG A0120 FEDERATED FEDERATED TRNSPRT: 7 [facility]BUS TRANSPORT [facility] COL[facility] 75177 CAYETANO MONTEIRO N VENOUS 7 [facility] BLOOD INC INC VENIPUNCT URE COMPREHEN 33618 CAYETANO MONTEIRO SIVE 7 [facility] METABOLIC INC INC PANEL ECG 26637 CAYETANO MONTEIRO ROUTINE 7 [facility] ECG INC INC W/LEAST 12 LDS TRCG ONLY W/O I&R ECG 44463 CAYETANO JULIANARIE ROUTINE 7 [facility] W/LEAST P 12 LDS I&R ONLY THERAPEUT 49029 Maxine HILLIARD IC 6 NANCY FIELDS PROPHYLAC PSC TIC/DX INJECTION SUBQ/IM NONEMERG A0120 FEDERATED FEDERATED TRNSPRT: 6 MINI-BUS TRANSPORT [facility] UN[facility]IF J3490 CAYETANO MONTEIRO IED DRUGS 6 [facility] INC INC HEPATOBIL 48266 [place] ALL SYST 6 MEDICAL IMAG INC IMAGING GB ASS W/PHARMA INTERVENJ NONEMERG A0120 FEDERATED FEDERATED TRNSPRT: 6 MINI-BUS TRANSPORT [facility] RADEX 60524 CAYETANO MONTEIRO ESOPHAGUS 6 [facility] [place] [address] CAYETANO MONTEIRO ABDOMINAL 6 [facility] REAL INC INC TIME W/IMAGE LIMITED NONEMERG A0120 FEDERATED FEDERATED TRNSPRT: 6 MINI-BUS TRANSPORT TRANSPORT MTN ATION SER ATION [facility]/OT SYS COMPREHEN 06703 [facility] SIVE 6 DIAGNOSTI DIAGNOSTI METABOLIC CS CS PANEL COLLECTIO 62102 Maxine HILLIARD N VENOUS 6 NANCY FIELDS JEA BLOOD PSC VENIPUNCT URE NONEMERG A0120 FEDERATED FEDERATED TRNSPRT: 6 MINI-BUS TRANSPORT [facility] [address] CAYETANO MONTEIRO FREE 6 [facility] [place] [address] CAYETANO MONTEIRO THYROID 6 [facility] STIMULATI INC INC NG HORMONE TSH NONEMERG A0120 FEDERATED FEDERATED TRNSPRT: 6 MINI-BUS TRANSPORT TRANSPORT MTN ATION SER ATION SER AREA/OTH SYS COMPREHEN 07162 LAB [facility] LAB MAX SIVE 6 YOGESH YOGESH METABOLIC HOLDINGS HOLDINGS PANEL COLLECTIO 76133 Maxine HILLIARD N VENOUS 6 NANCY FIELDS JE BLOOD PSC VENIPUNCT URE NONEMERG A0120 FEDERATED FEDERATED TRNSPRT: 6 MINI-BUS TRANSPORT TRANSPORT MTN ATION SER ATION SER AREA/OTH SYS RADEX 69764 [place] ALL ESOPHAGUS 6 [place] [address] CAYETANO MONTEIRO THYROID 6 [facility] STIMULATI [place] [address] CAYETANO MONTEIRO FREE 6 [facility] THYROXINE INC INC NONEMERG A0120 FEDERATED FEDERATED TRNSPRT: 6 MINI-BUS TRANSPORT TRANSPORT MTN ATION SER ATION SER AREA/OTH SYS COLLECTIO 31518 CAYETANO MONTEIRO N VENOUS 6 [facility] BLOOD INC INC VENIPUNCT URE NONEMERG A0120 FEDERATED FEDERATED TRNSPRT: 6 MINI-BUS TRANSPORT TRANSPORT MTN ATION SER ATION SER AREA/OTH SYS NONEMERG A0120 FEDERATED FEDERATED TRNSPRT: 6 MINI-BUS TRANSPORT TRANSPORT MTN ATION SER ATION SER AREA/OTH SYS RADEX 80100 [place] ALL RIBS UNI 6 MEDICAL W/POSTERO IMAGING ANT CH ASS MINIMUM 3 VIEWS DRUG 18312 [facility] LAB MAX SCREEN 6 YOGESH YOGESH QUANTITAT [employer] [address] LAB MAX [place] MAGNESIUM 6 [place] [address] LAB MAX LAB MAX FREE 6 YOGESH YOGESH [place] [address] LAB MAX LAB MAX THYROID 6 YOGESH YOGESH STIMULATI HOLDINGS HOLDINGS NG HORMONE TSH NONEMERG A0120 FEDERATED FEDERATED TRNSPRT: 6 MINI-BUS TRANSPORT TRANSPORT MTN ATION SER ATION SER AREA/OTH SYS COMPREHEN 55874 LAB MAX LAB MAX SIVE [address] [facility] METABOLIC HOLDINGS HOLDINGS PANEL NONEMERG A0120 FEDERATED FEDERATED TRNSPRT: 6 MINI-BUS TRANSPORT TRANSPORT MTN ATION SER ATION SER AREA/OTH SYS THERAPEUT 86081 A C A C IC 6 NANCY CRUZ MD PROPHYLAC PSC PSC TIC/DX INJECTION SUBQ/IM INJ J0702 A C FLORENTINO MARTY BETAMETHA 6 NANCY FIELDS SONE PSC ACETATE & PHOSPHATE 3 MG INJECTION J1030 A C A C 6 NANCY CRUZ MD METHYLPRE PSC PSC DNISOLONE ACETATE 40 MG COMPUTER- 86328 CAYETANO MONTEIRO AIDED 6 [facility] DETECTION INC INC SCREENING MAMMOGRAP HY NONEMERG A0120 FEDERATED FEDERATED TRNSPRT: 6 MINI-BUS TRANSPORT TRANSPORT MTN ATION SER ATION SER AREA/OTH SYS SCREENING G0202 [facility] 6 MEDICAL [place] MAMMOGRAP IMAGING HY KEVIN ASS INCL CAD WHEN PERFORMD NONEMERG A0120 FEDERATED FEDERATED TRNSPRT: 6 MINI-BUS TRANSPORT TRANSPORT MTN ATION SER ATION SER AREA/OTH SYS NONEMERG A0120 FEDERATED FEDERATED TRNSPRT: 6 MINI-BUS TRANSPORT TRANSPORT MTN ATION SER ATION SER AREA/OTH SYS CYTP 36087 LAB MAX LAB MAX CERV/VAG 6 [facility] AUTO THIN HOLDINGS HOLDINGS LAYER PREP MNL SCREEN NONEMERG A0120 FEDERATED FEDERATED TRNSPRT: 6 MINI-BUS TRANSPORT TRANSPORT MTN ATION SER ATION SER AREA/OTH SYS BASIC 44838 LAB MAX LAB MAX METABOLIC 6 YOGESH YOGESH PANEL HOLDINGS HOLDINGS CALCIUM TOTAL DRUG 62132 LAB MAX LAB MAX SCREEN 6 YOGESH YOGESH QUANTITAT [employer] [place] [address] LAB MAX LAB MAX THYROXINE 6 YOGESH [place] [address] LAB MAX LAB AMX TRIIODOTH 6 YOGESH YOGESH YRONINE HOLDINGS [place] T3 [place] [address] LAB MAX LAB MAX THYROID 6 YOGESH YOGESH STIMULATI HOLDINGS HOLDINGS NG HORMONE TSH THYROID 73843 LAB MAX LAB MAX HORM 6 YOGESH YOGESH UPTK/THYR HOLDINGS HOLDINGS OID HORMONE BINDING RATIO CHOLESTER 43067 A C NANCY OL 6 NANCY FIELDS WHITNEY SERUM/WHO PSC LE BLOOD TOTAL GLUCOSE 24448 A C NANCY QUANTITAT 6 NANCY FIELDS WHITNEY BROOKLYNN BLOOD PSC XCPT REAGENT STRIP BLOOD 49275 A C CRUZ COUNT 6 NANCY FIELDS WHITNEY COMPLETE PSC AUTO&AUTO DIFRNTL WBC LIPOPROTE 84452 A C NANCY IN DIR 6 NANCY FIELDS WHITNEY TERESA HIGH PSC DENSITY CHOLESTER OL NONEMERG A0120 FEDERATED FEDERATED TRNSPRT: 6 MINI-BUS TRANSPORT TRANSPORT MTN ATION SER ATION SER AREA/OTH SYS TRANSFERA 39415 A C NANCY SE 6 NANCY FIELDS WHITNEY ASPARTATE PSC AMINO AST SGOT TRANSFERA 52654 A C NANCY SE 6 NANCY FIELDS WHITNEY [place] [address] A C NANCY TRIGLYCER 6 NANCY FIELDS WHITNEY IDES PSC NONEMERG A0120 FEDERATED FEDERATED TRNSPRT: 6 MINI-BUS TRANSPORT TRANSPORT MTN ATION SER ATION SER AREA/OTH SYS NONEMERG A0120 FEDERATED FEDERATED TRNSPRT: 6 MINI-BUS TRANSPORT TRANSPORT MTN ATION SER ATION SER AREA/OTH SYS NONEMERG A0120 FEDERATED FEDERATED TRNSPRT: 6 MINI-BUS TRANSPORT TRANSPORT MTN ATION SER ATION SER AREA/OTH SYS NONEMERG A0120 FEDERATED FEDERATED TRNSPRT: 5 MINI-BUS TRANSPORT TRANSPORT MTN ATION SER ATION SER AREA/OTH SYS BASIC 65554 [facility] METABOLIC 5 DIAGNOSTI DIAGNOSTI PANEL CS CS CALCIUM TOTAL BLOOD 94226 A C FLORENTINO MARTY COUNT 5 NANCY FIELDS COMPLETE PSC AUTO&[place] [address] [facility] THYROID 5 DIAGNOSTI DIAGNOSTI STIMULATI CS CS NG HORMONE TSH NONEMERG A0120 FEDERATED FEDERATED TRNSPRT: 5 MINI-BUS TRANSPORT TRANSPORT MTN ATION SER ATION [facility]/OT SYS DIRECT G0154 [facility] SKILL [facility] AGENCY AGENCY /HOSPIC E EA 15 MIN NONEMERG A0120 FEDERATED FEDERATED TRNSPRT: 5 MINI-BUS TRANSPORT [facility] G0154 [facility] SKILL 5 [facility] AGENCY AGENCY /HOSPIC E EA 15 MIN NONEMERG A0120 FEDERATED FEDERATED TRNSPRT: 5 MINI-BUS TRANSPORT [facility] DIRECT G0154 [facility] SKILL 5 [facility] AGENCY AGENCY /HOSPIC E EA 15 MIN DIRECT G0154 [facility] SKILL 5 [facility] MIN DIRECT G0154 [facility] SKILL 5 HOME [facility] MIN DIRECT G0154 [facility] SKILL 5 [facility] 15 MIN DIRECT G0154 [facility] SKILL 5 [facility] 15 MIN NONEMERG A0120 FEDERATED FEDERATED TRNSPRT: 5 MINI-BUS TRANSPORT TRANSPORT MTN ATION SER ATION [facility]/OT SYS NONEMERG A0120 FEDERATED FEDERATED TRNSPRT: 5 MINI-BUS TRANSPORT [facility] NONEMERG A0120 FEDERATED FEDERATED TRNSPRT: 5 MINI-BUS TRANSPORT TRANSPORT MTN ATION SER ATION [facility]/OT SYS RADIOLOGI 42727 CAYETANO Reynoso 5 [facility] EXAMINATI INC INC ON NECK SOFT TISSUE NONEMERG A0120 FEDERATED FEDERATED TRNSPRT: 5 MINI-BUS TRANSPORT TRANSPORT MTN ATION SER ATION SER AREA/OTH SYS NONEMERG A0120 FEDERATED FEDERATED TRNSPRT: 5 MINI-BUS TRANSPORT TRANSPORT MTN ATION SER ATION SER AREA/OTH SYS NONEMERG A0120 FEDERATED FEDERATED TRNSPRT: 5 MINI-BUS TRANSPORT TRANSPORT MTN ATION SER ATION SER ARE[place] [address] [facility] THYROID 5 DIAGNOSTI DIAGNOSTI STIMULATI CS CS NG HORMONE TSH NONEMERG A0120 FEDERATED FEDERATED TRNSPRT: 5 MINI-BUS TRANSPORT TRANSPORT MTN ATION SER ATION SER AREA/OTH SYS DEBRIDEME 30817 YOON KARRIE NT 5 KERI KERI MASTOIDEC JUANCHO CAVITY SIMPLE NONEMERG A0120 FEDERATED FEDERATED TRNSPRT: 5 MINI-BUS TRANSPORT TRANSPORT MTN ATION SER ATION SER AREA/OTH SYS NONEMERG A0120 FEDERATED FEDERATED TRNSPRT: 5 MINI-BUS TRANSPORT TRANSPORT MTN ATION SER ATION SER AREA/OTH SYS NONEMERG A0120 FEDERATED FEDERATED TRNSPRT: 5 MINI-BUS TRANSPORT TRANSPORT MTN ATION SER ATION SER AREA/OTH SYS NONEMERG A0120 FEDERATED FEDERATED TRNSPRT: 4 TRANS MINI-BUS TRANSPORT SERVBLUEG MTN ATION SER [place] [address] [facility] THYROID 4 DIAGNOSTI DIAGNOSTI STIMULATI CS CS NG HORMONE TSH NONEMERG A0120 FEDERATED FEDERATED TRNSPRT: 4 TRANS MINI-BUS TRANSPORT SERVBLUEG MTN ATION SER JUSTINE AREA/OTH SYS LEVEL III 07868 [facility] SOLE PATHOLOGY GROSS&TANI ROSCOPIC EXAM INJECTION S0077 CAYETANO MONTEIRO 4 [facility] CLINDAMYC INC INC IN PHOSPHATE 300 MG ANESTHESI 60829 [facility] A 4 ANESTH SHE EXTERNAL OF THE MIDDLE & BLUE INNER EAR W/BX NOS ECG 08890 CAYETANO AUDIE JR ROUTINE 4 [facility] W/LEAST P 12 LDS I&R ONLY BLOOD 98719 CAYETANO MONTEIRO COUNT 4 [facility] COMPLETE INC INC AUTO&AUTO DIFRNTL WBC DEBRIDEME 78237 YOONANALILIA YOON NT 4 KERI KERI MASTOIDEC JUANCHO CAVITY CMPLX BASIC 69466 CAYETANO MONTEIRO METABOLIC 4 [facility] PANEL [place] T[place] [address] CAYETANO MONTEIRO XTRNL 4 [facility] AUDITORY INC INC CANAL ANES TYMPANOST 31108 CAYETANO MONTEIRO TAISHA 4 [facility] GENERAL INC INC ANESTHESI A NONEMERG A0120 FEDERATED FEDERATED TRNSPRT: 4 TRANS MINI-BUS TRANSPORT [facility]/OTH SYS NONEMERG A0120 FEDERATED FEDERATED TRNSPRT: 4 TRANS MINI-BUS TRANSPORT SERVBLUEG MTN [facility]/OTH SYS DEBRIDEME [id number] KARRIE YOON NT 4 KERI KERI MASTOIDEC JUANCHO CAVITY SIMPLE BLOOD 74711 FLORENTINO MARTY FLORENTINO MARTY COUNT 4 COMPLETE AUTO&AUTO DIFRNTL WBC NONEMERG A0120 FEDERATED FEDERATED TRNSPRT: 4 [facility]ANS [facility]/OTH SYS COMPREHEN [id number] QUEST QUEST SIVE 4 DIAGNOSTI DIAGNOSTI METABOLIC CS CS PANEL NONEMERG A0120 FEDERATED FEDERATED TRNSPRT: 4 TRANS [facility]/OTH SYS DEBRIDEME 26158 KARRIE YOON NT 4 KERI KERI MASTOIDEC JUANCHO CAVITY SIMPLE ECG [id number] FLORENTINO MARTY FLORENTINO MARTY ROUTINE 4 ECG W/LEAST 12 LDS W/I&R NONEMERG A0120 FEDERATED FEDERATED TRNSPRT: 4 TRANS [facility]/OTH SYS NONEMERG A0120 FEDERATED FEDERATED TRNSPRT: 4 TRANS [facility] SERVBLUEG MTN ATION SER JUSTINE AREA/OTH SYS DEBRIDEME [id number] KARRIE YOON NT 4 KERI KERI MASTOIDEC JUANCHO CAVITY SIMPLE OPHTH [id number] [facility] 4 ANG ANG XM&EVAL COMPRHNSV ESTAB PT 1/> NONEMERG A0120 FEDERATED FEDERATED TRNSPRT: 4 TRANS [facility] SERV[facility] MTN ATION SER JUSTINE AREA/OTH SYS NONEMERG A0120 FEDERATED FEDERATED TRNSPRT: 4 [facility] TRANSPORT MTN ATION SER ATION SER AREA/OTH SYS NONEMERG A0120 FEDERATED FEDERATED TRNSPRT: 4 [facility] TRANSPORT MTN ATION SER ATION SER AREA/OTH SYS COMPUTER- [id number] CAYETANO MONTEIRO AIDED 4 [facility] DETECTION INC INC SCREENING MAMMOGRAP HY SCREENING [id number] CAYETANO MONTEIRO 4 [facility] MAMMOGRAP INC INC HY KEVIN INCL CAD WHEN PERFORMD BLOOD [id number] FLORENTINO MARTY FLORENTINO MARTY COUNT 4 COMPLETE AUTO&[place] [id number] QUEST QUEST THYROID 4 DIAGNOSTI DIAGNOSTI STIMULATI CS CS NG HORMONE TSH NONEMERG A0120 FEDERATED FEDERATED TRNSPRT: 4 [facility] TRANSPORT MTN ATION SER ATION SER AREA/OTH SYS NONEMERG A0120 FEDERATED FEDERATED TRNSPRT: 4 [facility]SP[facility] TRANSPORT MTN ATION SER ATION SER AREA/OTH SYS NONEMERG A0120 FEDERATED FEDERATED TRNSPRT: 3 [facility]SP[facility] TRANSPORT MTN ATION SER ATION SER AREA/OTH SYS NONEMERG A0120 FEDERATED FEDERATED TRNSPRT: 3 [facility]SP[facility] TRANSPORT MTN ATION SER ATION SER AREA/OTH SYS DEBRIDEME 42114 KRARIE YOON NT 3 KERI KERI MASTOIDEC JUANCHO CAVITY SIMPLE NONEMERG A0120 FEDERATED FEDERATED TRNSPRT: 3 [facility]SPORT TRANSPORT MTN ATION SER ATION SER AREA/OTH SYS NONEMERG A0120 FEDERATED FEDERATED TRNSPRT: 3 [facility] TRANSPORT TRANSPORT MTN ATION SER ATION SER AREA/OTH SYS DEBRIDEME 40830 KARRIE YOON NT 3 KERI KERI MASTOIDEC JUANCHO CAVITY SIMPLE NONEMERG A0120 FEDERATED FEDERATED TRNSPRT: 3 [facility]SP[facility] TRANSPORT MTN ATION SER ATION SER AREA/OTH SYS NONEMERG A0120 LKLP CAC LKLP CAC TRNSPRT: 3 INC INC [facility] REGION [address] [facility] AREA/OTH SYS COLLECTIO 13363 [place] MARTY N VENOUS 3 NANCY FIEL[place] [address] QUEST QUEST THYROID 3 DIAGNOSTI DIAGNOSTI STIMULATI CS CS NG HORMONE TSH BASIC [id number] QUEST QUEST METABOLIC 3 DIAGNOSTI DIAGNOSTI PANEL CS CS CALCIUM TOTAL LIPID 95386 [place] [facility] MARTY PANEL 3 NANCY FIELDS PSC GLUCOSE 22212 [place] [facility]ART[facility] QUANTITAT 3 NANCY FIELDS BROOKLYNN BLOOD PSC XCPT REAGENT STRIP DIRECT [id number] [facility] SK[facility] HEALTH SERVICES AGENCY AGENCY HH/HOSPIC E EA 15 MIN QUANTITAT 99383 CAYETANO MONTEIRO ION DRUG 3 [facility] NOT INC INC ELSEWHERE SPECIFIED DIRECT G0154 [facility] SK[facility] 3 HOME HOME NURSE HEALTH HEALTH SERVICES AGENCY AGENCY HH/HOSPIC E EA 15 MIN NONEMERG A0120 [facility] CAC LKLP CAC TRNSPRT: 3 INC INC [place] REGION 11 REGION 11 ARN AREA/OTH SYS AMBULANCE A0429 [facility] SERVICE 3 AMBULANCE AMBULANCE BLS SERVICE SERVICE EMERGENCY TRANSPORT GROUND A0425 [facility] [place] [address] CA[facility]ETAN[facility] MONTEIR[facility] THYROID 3 [facility] STIMULATI [place] [address] CAYETANO MONTEIRO FREE 3 [facility] THYROXINE INC INC US SOFT 19140 CAYETANO MONTEIRO TISSUE 3 [facility] HEAD & INC INC NECK REAL TIME IMGE DOCM URNLS DIP 25284 LATONYA HANKS 3 DON DON STICK/TAB LET RGNT NON-AUTO W/O MICRSCP COMPUTER- 15369 [facility] MEME AIDED 3 YAZ YAZ DETECTION SCREENING MAMMOGRAP HY SCREENING G0202 CAYETANO MONTEIRO 3 [facility] MAMMOGRAP INC INC HY KEVIN INCL CAD WHEN PERFORMD LIPID 74907 CAYETANO MONTEIRO PANEL 3 [place] [address] CAYETANO MONTEIRO THYROID 3 [facility] STIMULATI INC INC NG HORMONE TSH NONEMERG A0120 LKLP LKLP TRNSPRT: 3 [facility] [place] ACTION ACTION MTN AREA/OTH SYS COMPREHEN 60519 CAYET[facility] MONTEIRO SIVE 3 [facility] METABOLIC INC INC PANEL DRUG 00622 CAYETANO MONTEIRO SCREEN 3 [facility] QUANTITAT INC INC [place] PHENYTOIN TOTAL CYTP 62842 [facility] SL[facility]ES 3 DIAGNOSTI DIAGNOSTI CERV/VAG CS CS MNL SCRN PHYSICIAN SUPV SERVICE G0151 [facility] 3 HOME HOME [facility] HOME AGENCY AGENCY HLTH/HOSP ICE EA 15 MIN SERVICE G0151 [facility] 3 HOME DIAGNOSTI THERAP HEALTH CS HOME AGENCY HLTH/HOSP ICE EA 15 MIN SERVICE G0151 [facility] 3 HOME HOME [facility] HOME AGENCY AGENCY HLTH/HOSP ICE EA 15 MIN SERVICE G0151 [facility] 3 HOME HOME [facility]AP [facility] HOME AGENCY AGENCY HLTH/HOSP ICE EA 15 MIN SERVICE G0151 [facility] 3 HOME HOME [facility] HOME AGENCY AGENCY HLTH/HOSP ICE EA 15 MIN SERVICE G0151 [facility] 3 HOME HOME [facility] HOME AGENCY AGENCY HLTH/HOSP ICE EA 15 MIN SERVICE G0151 [facility] 3 HOME HOME [facility]AP [facility] HOME AGENCY AGENCY HLTH/HOSP ICE EA 15 MIN SERVICE G0151 [facility] 2 HOME HOME THERAP [facility] HOME AGENCY AGENCY HLTH/HOSP ICE EA 15 MIN SRVC G0156 [facility] 2 HOME HOME E AIDE IN HEALTH HEALTH AGENCY AGENCY HH/HOSPIC E SET EA 15 MIN DIRECT G0154 [facility] SKILL 2 HOME HOME NURSE HEALTH HEALTH SERVICES AGENCY AGENCY HH/HOSPIC E EA 15 MIN RADIOLOGI 61328 [place] [facility] C 2 MEDICAL YAZ EXAMINATI IMAGING ON PELVIS ASS 1/2 VIEWS RADEX HIP 08297 [place] [facility] 2 MEDICAL YAZ UNILATERA IMAGING L ASS COMPLETE MINIMUM [address] [facility] MILEAGE 2 AMBULANCE AMBULANCE PER SERVICE SERVICE STATUTE MILE AMBULANCE A0429 [facility] SERVICE 2 AMBULANCE AMBULANCE BLS SERVICE SERVICE EMERGENCY TRANSPORT RADEX HIP 48068 [facility] MONTEIRO 2 [facility] UNILATERA INC INC L COMPLETE MINIMUM 2 VIEWS RADEX 20066 [place] [facility] HIPS 2 MEDICAL YAZ BILATERAL IMAGING 2 VIEWS ASS ANTEROPOS T PELVIS RADIOLOGI 00336 CAYETANO MONTEIRO C 2 [facility] EXAMINATI INC INC ON PELVIS 1/2 VIEWS RADEX 21395 [place] [facility] SPINE 2 MEDICAL YAZ LUMBOSACR IMAGING AL ASS MINIMUM 4 VIEWS RADEX 51787 LATONYA HANKS SHOULDER 2 DON DON COMPLETE MINIMUM 2 VIEWS NONEMERG A0120 [facility] TRNSPRT: 2 [facility] [place] ACTION ACTION [facility]/OTH SYS INCISION 84202 LATONYA HANKS THROMBOSE 2 DON DON D HEMORRHOI D EXTERNAL COMPREHEN 46850 CAYET[facility] MONTEIRO SIVE 2 [facility] METABOLIC INC INC PANEL NONEMERG A0120 [facility] TRNSPRT: 2 [facility] [place] ACTION ACTION [facility]/OT SYS NONEMERG A0120 [facility] TRNSPRT: 2 [facility] [place] ACTION ACTION [facility] SYS DESTRUCTI 84420 LATONYA HANKS ON 2 DON DON PREMALIGN ANT LESION 1ST NONEMERG A0120 LKLP LKLP TRNSPRT: 2 [facility] [place] ACTION ACTION MTN AREA/OTH SYS NONEMERG A0120 LKLP LKLP TRNSPRT: 2 [facility] [place] ACTION ACTION ARN AREA/OTH SYS COMPREHEN 82702 CAYETANO MONTEIRO SIVE 2 [facility] METABOLIC INC INC PANEL DRUG 91396 CAYETANO AVERYON SCREEN 2 [facility] QUANTITAT INC INC [place] PHENYTOIN TOTAL LIPID 72542 CAYETANO AVERYON PANEL 2 [facility] [place] [address] CAYETANO MONTEIRO THYROID 2 [facility] STIMULATI INC INC NG HORMONE TSH COMPUTER- 95055 [facility] AIDED 2 MEDICAL YAZ DETECTION IMAGING ASS SCREENING MAMMOGRAP HY SCREENING G0202 [place] [address] MEDICAL YAZ MAMMOGRAP IMAGING HY KEVIN ASS INCL CAD WHEN PERFORMD DIRECT G0154 NURSES NURSES SKILL 2 REGISTRY REGISTRY NURSE & HOME HE & HOME HE SERVICES HH/HOSPIC E EA 15 MIN SERVICE G0151 NURSES NURSES PHYS 2 REGISTRY REGISTRY THERAP & HOME HE & HOME HE HOME HLTH/HOSP ICE EA 15 MIN SERVICE G0151 NURSES NURSES PHYS 2 REGISTRY REGISTRY THERAP & HOME HE & HOME HE HOME HLTH/HOSP ICE EA 15 MIN [facility] 19283 [facility] VISION ANG XM&EVAL COMPRHNSV ESTAB PT 1/> [place] [address] CAYETANO MONTEIRO THYROID 1 [facility] STIMULATI INC INC NG HORMONE TSH COMPREHEN 10262 CAYETANO MONTEIRO SIVE 1 [facility] METABOLIC INC INC PANEL DRUG 31143 CAYETANO AVERYON SCREEN 1 [facility] QUANTITAT INC INC BROOKLYNN PHENYTOIN TOTAL LIPID 17697 CAYETANO AVERYON PANEL 1 [facility] INC INC BLOOD 59393 CAYETANO MONTEIRO COUNT 1 [facility] COMPLETE INC INC AUTO&AUTO DIFRNTL WBC COMPREHEN 65867 CAYETANO MONTEIRO SIVE 1 [facility] METABOLIC INC INC PANEL QUANTITAT 22263 CAYETANO MONTEIRO ION DRUG 1 [facility] NOT INC INC ELSEWHERE SPECIFIED SELF-CARE 30568 SUPPORT SUPPORT /HOME 1 SOURCE SOURCE MGMT TRAINING EACH 15 MINUTES SELF-CARE 28886 SUPPORT SUPPORT /HOME 1 SOURCE SOURCE MGMT TRAINING EACH 15 MINUTES SELF-CARE 07411 SUPPORT SUPPORT /HOME 1 SOURCE SOURCE MGMT TRAINING EACH 15 MINUTES SELF-CARE 84263 SUPPORT SUPPORT /HOME 1 SOURCE SOURCE MGMT TRAINING EACH 15 MINUTES SELF-CARE 29138 SUPPORT SUPPORT /HOME 1 SOURCE SOURCE MGMT TRAINING EACH 15 MINUTES SELF-CARE 65934 SUPPORT SUPPORT /HOME 1 SOURCE SOURCE MGMT TRAINING EACH 15 MINUTES SELF-CARE 51521 SUPPORT SUPPORT /HOME 1 SOURCE SOURCE MGMT TRAINING EACH 15 MINUTES SELF-CARE 01608 SUPPORT SUPPORT /HOME 1 SOURCE SOURCE MGMT TRAINING EACH 15 MINUTES SELF-CARE 50999 SUPPORT SUPPORT /HOME 1 SOURCE SOURCE MGMT TRAINING EACH 15 MINUTES SELF-CARE 96929 SUPPORT SUPPORT /HOME 1 SOURCE SOURCE MGMT TRAINING EACH 15 MINUTES SELF-CARE 89394 SUPPORT SUPPORT /HOME 1 SOURCE SOURCE MGMT TRAINING EACH 15 MINUTES QUANTITAT 04092 CAYETANO MONTEIRO ION DRUG 1 [facility] NOT INC INC ELSEWHERE SPECIFIED BLOOD 37448 CAYETANO MONTEIRO COUNT 1 [facility] COMPLETE INC INC AUTO&AUTO DIFRNTL WBC OBSERVATI 47153 FAMILY MULBERRY ON CARE 1 CARE HARRY DISCHARGE ASSOCIATE S MANAGEMEN T BASIC 00923 CAYETANO AVERYON METABOLIC 1 [facility] PANEL INC INC [facility] G0378 CAYETANO MONTEIRO OBSERVATI 1 [facility] ON INC INC SERVICE [facility] G0378 CAYETANO MONTEIRO OBSERVATI 1 [facility] ON INC INC SERVICE PER HOUR GROUND A0425 [facility] MILEAGE 1 AMBULANCE AMBULANCE PER SERVICE SERVICE STATUTE MILE ALS A0398 [facility] ROUTINE 1 AMBULANCE AMBULANCE DISPOSABL SERVICE SERVICE E SUPPLIES URNLS DIP 62255 CA[facility] MON[facility] 1 [facility] STICK/TAB INC [place] [address] CAYETANO MONTEIRO INFUSION 1 [facility] THERAPY INC INC PROPHYLAX [place] [address] CAYETANO MONTEIRO LIPASE 1 [facility] INC INC BLOOD 32333 CAYETANO MONTEIRO COUNT 1 [facility] COMPLETE INC INC AUTO&[place] [address] CAYETANO MONTEIRO INFUSION 1 [facility] THERAPY/P INC INC ROPHYLAXI S /DX 1ST TO 1 [place] [address] CAYETANO MONTEIRO AMYLASE 1 [facility] INC INC AMB A0427 [facility] SERVICE 1 AMBULANCE AMBULANCE ALS SERVICE SERVICE EMERGENCY TRANSPORT LEVEL 1 QUANTITAT 16578 CAYETANO MONTEIRO ION DRUG 1 [facility] NOT INC INC ELSEWHERE SPECIFIED INITIAL 33710 FAMILY MULBERRY OBSERVATI 1 CARE HARRY ON ASSOCIATE CARE/DAY S 50 MINUTES COMPREHEN 17821 CAYETANO MONTEIRO SIVE 1 [facility] [place] [address] CAYETANO MONTEIRO STREPTOCO 1 [facility] CCUS INC INC GROUP A COMPREHEN 76363 CAYETANO MONTEIRO SIVE 1 [facility] [place] [address] CAYETANO MONTEIRO AMYLASE 1 [facility] INC INC CREATINE 55103 CAYETANO MONTEIRO KINASE MB 1 [facility] [place] [address] CAYETANO MONTEIRO INFUSION 1 [facility] THERAPY/P INC INC ROPHYLAXI S /DX 1ST TO 1 HR BLOOD 88155 CAYETANO MONTEIRO COUNT 1 [facility] COMPLETE INC INC AUTO&[place] [address] CAYETANO MONTEIRO TROPONIN 1 [facility] [place] [address] CAYETANO MONTEIRO LIPASE 1 [facility] INC INC CREATINE 68603 CAYETANO CAYETANO KINASE 1 [place] [address] [facility] HEAD/BRAI 1 MEDICAL YAZ N W/O IMAGING CONTRAST ASS MATERIAL RADIOLOGI 14842 [facility] C 1 MEDICAL YAZ EXAMINATI IMAGING ON CHEST ASS SINGLE VIEW FRONTAL 3D 55550 [facility] RENDERING 1 MEDICAL YAZ W/INTERP IMAGING & [place] [address] CAYETANO MONTEIRO INFUSION 1 [facility] THERAPY INC INC PROPHYLAX IS/DX EA HOUR BLOOD 28110 CAYETANOANALILIA MONTEIRO COUNT 1 [facility] COMPLETE INC INC AUTO&AUTO DIFRNTL WBC COMPREHEN 23786 CAYETANOANALILIA MONTEIRO SIVE 1 [facility] METABOLIC INC INC PANEL QUANTITAT 51254 CAYETANO MONTEIRO ION DRUG 1 [facility] NOT INC INC ELSEWHERE SPECIFIED SELF-CARE 81281 SUPPORT SUPPORT /HOME 1 SOURCE SOURCE MGMT TRAINING EACH 15 MINUTES SELF-CARE 08460 SUPPORT SUPPORT /HOME 1 SOURCE SOURCE MGMT TRAINING EACH 15 MINUTES SELF-CARE 30748 SUPPORT SUPPORT /HOME 1 SOURCE SOURCE MGMT TRAINING EACH 15 MINUTES SELF-CARE 90618 SUPPORT SUPPORT /HOME 1 SOURCE SOURCE MGMT TRAINING EACH 15 MINUTES COMPREHEN 61174 CAYETANO AVERYON SIVE 1 [facility] METABOLIC INC INC PANEL BLOOD 30468 CAYETANO MONTEIRO COUNT 1 [facility] COMPLETE INC INC AUTO&AUTO DIFRNTL WBC DRUG 46094 CAYETANO MONTEIRO SCREEN 1 [facility] QUANTITAT INC INC BROOKLYNN PHENYTOIN TOTAL LIPID 26172 CAYETANO MONTEIRO PANEL 1 [place] [address] CAYETANO MONTEIRO THYROID 1 [facility] STIMULATI INC INC NG HORMONE TSH COMPUTER- 73866 [facility] AIDED 1 MEDICAL YAZ DETECTION IMAGING ASS SCREENING MAMMOGRAP HY SCREENING G0202 [facility]LOS VALENTINE 1 MEDICAL YAZ MAMMOGRAP IMAGING HY KEVIN ASS INCL CAD WHEN PERFORMD DEBRIDEME 90827 KARRIE YOON NT 1 KERI KERI MASTOIDEC JUANCHO CAVITY SIMPLE BASIC 57029 CAYETANO MONTEIRO METABOLIC 1 [facility] PANEL INC INC CALCIUM TOTAL BLOOD 39954 CAYETANO MONTEIRO COUNT 1 [facility] COMPLETE INC INC AUTO&AUTO DIFRNTL WBC DRUG 68913 CAYETANO MONTEIRO SCREEN 1 [facility] QUANTITAT INC INC [place] PHENYTOIN TOTAL AMBULANCE A0429 [facility] SERVICE 1 AMBULANCE AMBULANCE BLS SERVICE SERVICE EMERGENCY TRANSPORT GROUND A0425 [facility]UL[facility] PER SERVICE SERVICE STATUTE MILE DRUG 17617 CAYETANO MONTEIRO SCREEN 1 [facility] QUANTITAT INC [place] [address] CAYETANO MONTEIRO THYROID 1 [facility] STIMULATI INC INC NG HORMONE TSH SELF-CARE 56182 SUPPORT SUPPORT /HOME 0 SOURCE SOURCE MGMT TRAINING EACH 15 MINUTES SELF-CARE 52215 SUPPORT SUPPORT /HOME 0 SOURCE SOURCE MGMT TRAINING EACH 15 MINUTES SELF-CARE 81904 SUPPORT SUPPORT /HOME 0 SOURCE SOURCE MGMT TRAINING EACH 15 MINUTES SELF-CARE 44227 SUPPORT SUPPORT /HOME 0 SOURCE SOURCE MGMT TRAINING EACH 15 MINUTES SELF-CARE 36967 SUPPORT SUPPORT /HOME 0 SOURCE SOURCE MGMT TRAINING EACH 15 MINUTES DEBRIDEME 83979 KARRIE LIMON NT 0 KERI KERI MASTOIDEC JUANCHO CAVITY SIMPLE SELF-CARE 16715 SUPPORT SUPPORT /HOME 0 SOURCE SOURCE MGMT TRAINING EACH 15 MINUTES SELF-CARE 38011 SUPPORT SUPPORT /HOME 0 SOURCE SOURCE MGMT TRAINING EACH 15 MINUTES SELF-CARE 09070 SUPPORT SUPPORT /HOME 0 SOURCE SOURCE MGMT TRAINING EACH 15 MINUTES SELF-CARE 52109 SUPPORT SUPPORT /HOME 0 SOURCE SOURCE MGMT TRAINING EACH 15 MINUTES SELF-CARE 02687 SUPPORT SUPPORT /HOME 0 SOURCE SOURCE MGMT TRAINING EACH 15 MINUTES DRUG 80294 CAYETANO MONTEIRO SCREEN 0 [facility] QUANTITAT INC INC BROOKLYNN PHENYTOIN TOTAL 3D 83329 CAYETANO AVERYON RENDERING 0 [facility] W/INTERP INC INC & [place] [address] CARLOS VALENTINE HEAD/BRAI 0 MEDICAL YAZ N W/O IMAGING CONTRAST ASS MATERIAL BASIC 45122 CAYETANO MONTEIRO METABOLIC 0 [facility] PANEL INC INC CALCIUM TOTAL BLOOD 01924 CAYETANO MONTEIRO COUNT 0 [facility] COMPLETE INC INC AUTO&AUTO DIFRNTL WBC SELF-CARE 84809 SUPPORT SUPPORT /HOME 0 SOURCE SOURCE MGMT TRAINING EACH 15 MINUTES SELF-CARE 85812 SUPPORT SUPPORT /HOME 0 SOURCE SOURCE MGMT TRAINING EACH 15 MINUTES SELF-CARE 24781 SUPPORT SUPPORT /HOME 0 SOURCE SOURCE MGMT TRAINING EACH 15 MINUTES SELF-CARE 61500 SUPPORT SUPPORT /HOME 0 SOURCE SOURCE MGMT TRAINING EACH 15 MINUTES SELF-CARE 24267 SUPPORT SUPPORT /HOME 0 SOURCE SOURCE MGMT TRAINING EACH 15 MINUTES SELF-CARE 13149 SUPPORT SUPPORT /HOME 0 SOURCE SOURCE MGMT TRAINING EACH 15 MINUTES SELF-CARE 50376 SUPPORT SUPPORT /HOME 0 SOURCE SOURCE MGMT TRAINING EACH 15 MINUTES SELF-CARE 86221 SUPPORT SUPPORT /HOME 0 SOURCE SOURCE MGMT TRAINING EACH 15 MINUTES SELF-CARE 10666 SUPPORT SUPPORT /HOME 0 SOURCE SOURCE MGMT TRAINING EACH 15 MINUTES SELF-CARE 49400 SUPPORT SUPPORT /HOME 0 SOURCE SOURCE MGMT TRAINING EACH 15 MINUTES SELF-CARE 26579 SUPPORT SUPPORT /HOME 0 SOURCE SOURCE MGMT TRAINING EACH 15 MINUTES SELF-CARE 13248 SUPPORT SUPPORT /HOME 0 SOURCE SOURCE MGMT TRAINING EACH 15 MINUTES SELF-CARE 01267 SUPPORT SUPPORT /HOME 0 SOURCE SOURCE MGMT TRAINING EACH 15 MINUTES SELF-CARE 85704 SUPPORT SUPPORT /HOME 0 SOURCE SOURCE MGMT TRAINING EACH 15 MINUTES SELF-CARE 65328 SUPPORT SUPPORT /HOME 0 SOURCE SOURCE MGMT TRAINING EACH 15 MINUTES MICROSURG 95148 KARRIE YOON TQS REQ 0 KERI KERI USE OPERATING MICROSCOP E DEBRIDEME 64598 KARRIE YOON NT 0 KERI KERI MASTOIDEC JUANCHO CAVITY SIMPLE SELF-CARE 61752 SUPPORT SUPPORT /HOME 0 SOURCE SOURCE MGMT TRAINING EACH 15 MINUTES SELF-CARE 39308 SUPPORT SUPPORT /HOME 0 SOURCE SOURCE MGMT TRAINING EACH 15 MINUTES SELF-CARE 50102 SUPPORT SUPPORT /HOME 0 SOURCE SOURCE MGMT TRAINING EACH 15 MINUTES SELF-CARE 19663 SUPPORT SUPPORT /HOME 0 SOURCE SOURCE MGMT TRAINING EACH 15 MINUTES SELF-CARE 14279 SUPPORT SUPPORT /HOME 0 SOURCE SOURCE MGMT TRAINING EACH 15 MINUTES SELF-CARE 78811 SUPPORT SUPPORT /HOME 0 SOURCE SOURCE MGMT TRAINING EACH 15 MINUTES SELF-CARE 18624 SUPPORT SUPPORT /HOME 0 SOURCE SOURCE MGMT TRAINING EACH 15 MINUTES SELF-CARE 14800 SUPPORT SUPPORT /HOME 0 SOURCE SOURCE MGMT TRAINING EACH [address] [place] [address] CAYETANO MONTEIRO THYROID 0 [facility] STIMULATI INC INC NG HORMONE TSH DRUG 21562 CAYETANO MONTEIRO SCREEN 0 [facility] QUANTITAT INC INC [place] PHENYTOIN TOTAL SELF-CARE 58630 SUPPORT SUPPORT /HOME 0 SOURCE SOURCE MGMT TRAINING EACH 15 MINUTES SELF-CARE 62145 SUPPORT SUPPORT /HOME 0 SOURCE SOURCE MGMT TRAINING EACH 15 MINUTES SELF-CARE 65252 SUPPORT SUPPORT /HOME 0 SOURCE SOURCE MGMT TRAINING EACH 15 MINUTES SELF-CARE 54969 SUPPORT SUPPORT /HOME 0 SOURCE SOURCE MGMT TRAINING EACH 15 MINUTES SELF-CARE 45544 SUPPORT SUPPORT /HOME 0 SOURCE SOURCE MGMT TRAINING EACH 15 MINUTES SELF-CARE 21311 SUPPORT SUPPORT /HOME 0 SOURCE SOURCE MGMT TRAINING EACH 15 MINUTES SELF-CARE 35976 SUPPORT SUPPORT /HOME 0 SOURCE SOURCE MGMT TRAINING EACH 15 MINUTES SELF-CARE 21951 SUPPORT SUPPORT /HOME 0 SOURCE SOURCE MGMT TRAINING EACH 15 MINUTES SELF-CARE 75065 SUPPORT SUPPORT /HOME 0 SOURCE SOURCE MGMT TRAINING EACH 15 MINUTES SELF-CARE 67647 SUPPORT SUPPORT /HOME 0 SOURCE SOURCE MGMT TRAINING EACH 15 MINUTES SELF-CARE 20617 SUPPORT SUPPORT /HOME 0 SOURCE SOURCE MGMT TRAINING EACH 15 MINUTES SELF-CARE 06331 SUPPORT SUPPORT /HOME 0 SOURCE SOURCE MGMT TRAINING EACH 15 MINUTES SELF-CARE 40766 SUPPORT SUPPORT /HOME 0 SOURCE SOURCE MGMT TRAINING EACH 15 MINUTES SELF-CARE 62536 SUPPORT SUPPORT /HOME 0 SOURCE SOURCE MGMT TRAINING EACH 15 MINUTES SELF-CARE 83828 SUPPORT SUPPORT /HOME 0 SOURCE SOURCE MGMT TRAINING EACH 15 MINUTES SELF-CARE 71613 SUPPORT SUPPORT /HOME 0 SOURCE SOURCE MGMT TRAINING EACH 15 MINUTES SELF-CARE 98046 SUPPORT SUPPORT /HOME 0 SOURCE SOURCE MGMT TRAINING EACH 15 MINUTES DRUG 48192 CAYETANO MONTEIRO SCREEN 0 [facility] QUANTITAT INC INC [place] PHENYTOIN TOTAL AMBULANCE A0429 [facility] SERVICE 0 AMBULANCE AMBULANCE BLS SERVICE SERVICE EMERGENCY TRANSPORT GROUND A0425 [facility] MILEAGE 0 AMBULANCE AMBULANCE PER SERVICE SERVICE STATUTE MILE SELF-CARE 39706 SUPPORT SUPPORT /HOME 0 SOURCE SOURCE MGMT TRAINING EACH 15 MINUTES SELF-CARE 21889 SUPPORT SUPPORT /HOME 0 SOURCE SOURCE MGMT TRAINING EACH 15 MINUTES SELF-CARE 36943 SUPPORT SUPPORT /HOME 0 SOURCE SOURCE MGMT TRAINING EACH 15 MINUTES SELF-CARE 04452 SUPPORT SUPPORT /HOME 0 SOURCE SOURCE MGMT TRAINING EACH 15 MINUTES SELF-CARE 29477 SUPPORT SUPPORT /HOME 0 SOURCE SOURCE MGMT TRAINING EACH 15 MINUTES SELF-CARE 80044 SUPPORT SUPPORT /HOME 0 SOURCE SOURCE MGMT TRAINING EACH 15 MINUTES SELF-CARE 75069 SUPPORT SUPPORT /HOME 0 SOURCE SOURCE MGMT TRAINING EACH 15 MINUTES SELF-CARE 09622 SUPPORT SUPPORT /HOME 0 SOURCE SOURCE MGMT TRAINING EACH 15 MINUTES SELF-CARE 79655 SUPPORT SUPPORT /HOME 0 SOURCE SOURCE MGMT TRAINING EACH 15 MINUTES SELF-CARE 89254 SUPPORT SUPPORT /HOME 0 SOURCE SOURCE MGMT TRAINING EACH 15 MINUTES SELF-CARE 97372 SUPPORT SUPPORT /HOME 0 SOURCE SOURCE MGMT TRAINING EACH 15 MINUTES SELF-CARE 96811 SUPPORT SUPPORT /HOME 0 SOURCE SOURCE MGMT TRAINING EACH 15 MINUTES SELF-CARE 56624 SUPPORT SUPPORT /HOME 0 SOURCE SOURCE MGMT TRAINING EACH 15 MINUTES SELF-CARE 20882 SUPPORT SUPPORT /HOME 0 SOURCE SOURCE MGMT TRAINING EACH 15 MINUTES SELF-CARE 84272 SUPPORT SUPPORT /HOME 0 SOURCE SOURCE MGMT TRAINING EACH 15 MINUTES SELF-CARE 87824 SUPPORT SUPPORT /HOME 0 SOURCE SOURCE MGMT TRAINING EACH 15 MINUTES SELF-CARE 83900 SUPPORT SUPPORT /HOME 0 SOURCE SOURCE MGMT TRAINING EACH 15 MINUTES SELF-CARE 76406 SUPPORT SUPPORT /HOME 0 SOURCE SOURCE MGMT TRAINING EACH 15 MINUTES SELF-CARE 44986 SUPPORT SUPPORT /HOME 0 SOURCE SOURCE MGMT TRAINING EACH 15 MINUTES SELF-CARE 99004 SUPPORT SUPPORT /HOME 0 SOURCE SOURCE MGMT TRAINING EACH 15 MINUTES SELF-CARE 00767 SUPPORT SUPPORT /HOME 0 SOURCE SOURCE MGMT TRAINING EACH 15 MINUTES SELF-CARE 76453 SUPPORT SUPPORT /HOME 0 SOURCE SOURCE MGMT TRAINING EACH 15 MINUTES SELF-CARE 42860 SUPPORT SUPPORT /HOME 0 SOURCE SOURCE MGMT TRAINING EACH 15 MINUTES SELF-CARE 59359 SUPPORT SUPPORT /HOME 0 SOURCE SOURCE MGMT TRAINING EACH 15 MINUTES SELF-CARE 87366 SUPPORT SUPPORT /HOME 0 SOURCE SOURCE MGMT TRAINING EACH 15 MINUTES SELF-CARE 79047 SUPPORT SUPPORT /HOME 0 SOURCE SOURCE MGMT TRAINING EACH 15 MINUTES SELF-CARE 99678 SUPPORT SUPPORT /HOME 0 SOURCE SOURCE MGMT TRAINING EACH 15 MINUTES SELF-CARE 16212 SUPPORT SUPPORT /HOME 0 SOURCE SOURCE MGMT TRAINING EACH 15 MINUTES SELF-CARE 59327 SUPPORT SUPPORT /HOME 0 SOURCE SOURCE MGMT TRAINING EACH 15 MINUTES SELF-CARE 18821 SUPPORT SUPPORT /HOME 0 SOURCE SOURCE MGMT TRAINING EACH 15 MINUTES SELF-CARE 89571 SUPPORT SUPPORT /HOME 0 SOURCE SOURCE MGMT TRAINING EACH 15 MINUTES SELF-CARE 44110 SUPPORT SUPPORT /HOME 0 SOURCE SOURCE MGMT TRAINING EACH 15 MINUTES SELF-CARE 74272 SUPPORT SUPPORT /HOME 0 SOURCE SOURCE MGMT TRAINING EACH 15 MINUTES SELF-CARE 43570 SUPPORT SUPPORT /HOME 0 SOURCE SOURCE MGMT TRAINING EACH 15 MINUTES SELF-CARE 10532 SUPPORT SUPPORT /HOME 0 SOURCE SOURCE MGMT TRAINING EACH 15 MINUTES SELF-CARE 87509 SUPPORT SUPPORT /HOME 0 SOURCE SOURCE MGMT TRAINING EACH 15 MINUTES SELF-CARE 15387 SUPPORT SUPPORT /HOME 0 SOURCE SOURCE MGMT TRAINING EACH 15 MINUTES SELF-CARE 11012 SUPPORT SUPPORT /HOME 0 SOURCE SOURCE MGMT TRAINING EACH 15 MINUTES SELF-CARE 59656 SUPPORT SUPPORT /HOME 0 SOURCE SOURCE MGMT TRAINING EACH 15 MINUTES DRUG 05796 CAYETANO MONTEIRO SCREEN 0 [facility] QUANTITAT INC [place] [address] CAYETANO MONTEIOR THYROID 0 [facility] STIMULATI [facility] INC NG HORMONE TSH COMPREHEN [id number] [facility] SIVE 0 [facility] METABOLIC INC INC PANEL BLOOD [id number] [facility] COUNT 0 [facility] COMPLETE INC INC AUTO&AUTO DIFRNTL WBC SELF-CARE 44802 SUPPORT SUPPORT /HOME 0 SOURCE SOURCE MGMT TRAINING EACH 15 MINUTES SELF-CARE 44409 SUPPORT SUPPORT /HOME 0 SOURCE SOURCE MGMT TRAINING EACH 15 MINUTES SELF-CARE 33883 SUPPORT SUPPORT /HOME 0 SOURCE SOURCE MGMT TRAINING EACH 15 MINUTES DEBRIDEME 48401 KARRIE YOON, NT 0 KRISTI G KRISTI G MASTOIDEC JUANCHO CAVITY SIMPLE SELF-CARE 76537 SUPPORT SUPPORT /HOME 0 SOURCE SOURCE MGMT TRAINING EACH 15 MINUTES SELF-CARE 41847 SUPPORT SUPPORT /HOME 0 SOURCE SOURCE MGMT TRAINING EACH 15 MINUTES SELF-CARE 70754 SUPPORT SUPPORT /HOME 0 SOURCE SOURCE MGMT TRAINING EACH 15 MINUTES SELF-CARE 28280 SUPPORT SUPPORT /HOME 0 SOURCE SOURCE MGMT TRAINING EACH 15 MINUTES SELF-CARE 94041 SUPPORT SUPPORT /HOME 0 SOURCE SOURCE MGMT TRAINING EACH 15 MINUTES SELF-CARE 48978 SUPPORT SUPPORT /HOME 0 SOURCE SOURCE MGMT TRAINING EACH 15 MINUTES SELF-CARE 11828 SUPPORT SUPPORT /HOME 0 SOURCE SOURCE MGMT TRAINING EACH 15 MINUTES SELF-CARE 11834 SUPPORT SUPPORT /HOME 0 SOURCE SOURCE MGMT TRAINING EACH 15 MINUTES SELF-CARE 74257 SUPPORT SUPPORT /HOME 0 SOURCE SOURCE MGMT TRAINING EACH 15 MINUTES SELF-CARE 38688 SUPPORT SUPPORT /HOME 0 SOURCE SOURCE MGMT TRAINING EACH 15 MINUTES SELF-CARE 77417 SUPPORT SUPPORT /HOME 0 SOURCE SOURCE MGMT TRAINING EACH 15 MINUTES SELF-CARE 33576 SUPPORT SUPPORT /HOME 0 SOURCE SOURCE MGMT TRAINING EACH 15 MINUTES SELF-CARE 47529 SUPPORT SUPPORT /HOME 0 SOURCE SOURCE MGMT TRAINING EACH 15 MINUTES SELF-CARE 61361 SUPPORT SUPPORT /HOME 0 SOURCE SOURCE MGMT TRAINING EACH 15 MINUTES SELF-CARE 56350 SUPPORT SUPPORT /HOME 0 SOURCE SOURCE MGMT TRAINING EACH 15 MINUTES SELF-CARE 94514 SUPPORT SUPPORT /HOME 0 SOURCE SOURCE MGMT TRAINING EACH 15 MINUTES SELF-CARE 27982 SUPPORT SUPPORT /HOME 0 SOURCE SOURCE MGMT TRAINING EACH 15 MINUTES SELF-CARE 72237 SUPPORT SUPPORT /HOME 0 SOURCE SOURCE MGMT TRAINING EACH 15 MINUTES SELF-CARE 75651 SUPPORT SUPPORT /HOME 0 SOURCE SOURCE MGMT TRAINING EACH 15 MINUTES SELF-CARE 45799 SUPPORT SUPPORT /HOME 0 SOURCE SOURCE MGMT TRAINING EACH 15 MINUTES SELF-CARE 61207 SUPPORT SUPPORT /HOME 0 SOURCE SOURCE MGMT TRAINING EACH 15 MINUTES [facility] [id number] GERMAIN HOWARD, MEDICAL 0 VISION MARIET[place] A XM&EVAL COMPRHNSV ESTAB PT 1/> SELF-CARE 51887 SUPPORT SUPPORT /HOME 0 SOURCE SOURCE MGMT TRAINING EACH 15 MINUTES SELF-CARE 77480 SUPPORT SUPPORT /HOME 0 SOURCE SOURCE MGMT TRAINING EACH 15 MINUTES SELF-CARE 79317 SUPPORT SUPPORT /HOME 0 SOURCE SOURCE MGMT TRAINING EACH 15 MINUTES SELF-CARE 94839 SUPPORT SUPPORT /HOME 0 SOURCE SOURCE MGMT TRAINING EACH 15 MINUTES SELF-CARE 95760 SUPPORT SUPPORT /HOME 0 SOURCE SOURCE MGMT TRAINING EACH 15 MINUTES SELF-CARE 96841 SUPPORT SUPPORT /HOME 0 SOURCE SOURCE MGMT TRAINING EACH 15 MINUTES SELF-CARE 55132 SUPPORT SUPPORT /HOME 0 SOURCE SOURCE MGMT TRAINING EACH 15 MINUTES SELF-CARE 25068 SUPPORT SUPPORT /HOME 0 SOURCE SOURCE MGMT TRAINING EACH 15 MINUTES SELF-CARE 23104 SUPPORT SUPPORT /HOME 0 SOURCE SOURCE MGMT TRAINING EACH 15 MINUTES SELF-CARE 97828 SUPPORT SUPPORT /HOME 0 SOURCE SOURCE MGMT TRAINING EACH 15 MINUTES SELF-CARE 96184 SUPPORT SUPPORT /HOME 0 SOURCE SOURCE MGMT TRAINING EACH 15 MINUTES SELF-CARE 50784 SUPPORT SUPPORT /HOME 0 SOURCE SOURCE MGMT TRAINING EACH 15 MINUTES COMPRE 55319 KARRIE YOON, AUDIOMETR 0 KRISTI Akhtar Y THRESHOLD EVAL SP RECOGNIJ TYMPANOME 01694 KARRIE YOON, TRY 0 KRISTI Akhtar SELF-CARE 77207 SUPPORT SUPPORT /HOME 0 SOURCE SOURCE MGMT TRAINING EACH 15 MINUTES SELF-CARE 38182 SUPPORT SUPPORT /HOME 0 SOURCE SOURCE MGMT TRAINING EACH 15 MINUTES SELF-CARE 33617 SUPPORT SUPPORT /HOME 0 SOURCE SOURCE MGMT TRAINING EACH 15 MINUTES SELF-CARE 75531 SUPPORT SUPPORT /HOME 0 SOURCE SOURCE MGMT TRAINING EACH 15 MINUTES SELF-CARE 16863 SUPPORT SUPPORT /HOME 0 SOURCE SOURCE MGMT TRAINING EACH 15 MINUTES SELF-CARE 94122 SUPPORT SUPPORT /HOME 0 SOURCE SOURCE MGMT TRAINING EACH 15 MINUTES SELF-CARE 03074 SUPPORT SUPPORT /HOME 0 SOURCE SOURCE MGMT TRAINING EACH 15 MINUTES BLOOD 48006 CA[facility]O [facility]IR[facility] COMPLETE INC INC AUTO&[place] [address] CAYETANO [facility]IRO FREE [facility] [place] [address] CAYETANO MONTEIRO THYROID 0 [facility] STIMULATI INC INC NG HORMONE TSH SELF-CARE 73961 SUPPORT SUPPORT /HOME 0 SOURCE SOURCE MGMT TRAINING EACH 15 MINUTES SELF-CARE 24291 SUPPORT SUPPORT /HOME 0 SOURCE SOURCE MGMT TRAINING EACH 15 MINUTES SELF-CARE 88826 SUPPORT SUPPORT /HOME 0 SOURCE SOURCE MGMT TRAINING EACH 15 MINUTES SELF-CARE 47422 SUPPORT SUPPORT /HOME 0 SOURCE SOURCE MGMT TRAINING EACH 15 MINUTES SELF-CARE 34351 SUPPORT SUPPORT /HOME 0 SOURCE SOURCE MGMT TRAINING EACH 15 MINUTES SELF-CARE 57790 SUPPORT SUPPORT /HOME 0 SOURCE SOURCE MGMT TRAINING EACH 15 MINUTES SELF-CARE 97913 SUPPORT SUPPORT /HOME 0 SOURCE SOURCE MGMT TRAINING EACH 15 MINUTES SELF-CARE 39922 SUPPORT SUPPORT /HOME 0 SOURCE SOURCE MGMT TRAINING EACH 15 MINUTES SELF-CARE 83801 SUPPORT SUPPORT /HOME 0 SOURCE SOURCE MGMT TRAINING EACH 15 MINUTES 3D 61677 CAYETANO MONTEIRO RENDERING 0 [facility] INC INC W/INTERP& POSTPROC DIFF WORK STATION CT ORBIT 88919 CAYETANO MONTEIRO SELLA/POS 0 [facility] T INC INC FOSSA/EAR W/[place] [address] CAYETANO MONTEIRO MAXILLOFA 0 [facility] CIAL W/O INC INC CONTRAST MATERIAL SELF-CARE 65141 SUPPORT SUPPORT /HOME 0 SOURCE SOURCE MGMT TRAINING EACH 15 MINUTES SELF-CARE 73819 SUPPORT SUPPORT /HOME 0 SOURCE SOURCE MGMT TRAINING EACH 15 MINUTES SELF-CARE 40357 SUPPORT SUPPORT /HOME 0 SOURCE SOURCE MGMT TRAINING EACH 15 MINUTES SELF-CARE 73695 SUPPORT SUPPORT /HOME 0 SOURCE SOURCE MGMT TRAINING EACH 15 MINUTES SELF-CARE 89982 SUPPORT SUPPORT /HOME 0 SOURCE SOURCE MGMT TRAINING EACH 15 MINUTES SELF-CARE 05674 SUPPORT SUPPORT /HOME 0 SOURCE SOURCE MGMT TRAINING EACH 15 MINUTES SELF-CARE 68040 SUPPORT SUPPORT /HOME 0 SOURCE SOURCE MGMT TRAINING EACH 15 MINUTES SELF-CARE 39926 SUPPORT SUPPORT /HOME 0 SOURCE SOURCE MGMT TRAINING EACH 15 MINUTES SELF-CARE 12665 SUPPORT SUPPORT /HOME 0 SOURCE SOURCE MGMT TRAINING EACH 15 MINUTES SELF-CARE 14330 SUPPORT SUPPORT /HOME 0 SOURCE SOURCE MGMT TRAINING EACH 15 MINUTES SELF-CARE 58234 SUPPORT SUPPORT /HOME 0 SOURCE SOURCE MGMT TRAINING EACH 15 MINUTES SELF-CARE 14562 SUPPORT SUPPORT /HOME 0 SOURCE SOURCE MGMT TRAINING EACH 15 MINUTES SELF-CARE 19091 SUPPORT SUPPORT /HOME 0 SOURCE SOURCE MGMT TRAINING EACH 15 MINUTES SELF-CARE 65518 SUPPORT SUPPORT /HOME 0 SOURCE SOURCE MGMT TRAINING EACH 15 MINUTES COMPUTER- 24590 CAYETANO MONTEIRO AIDED 0 [facility] DETECTION INC INC SCREENING MAMMOGRAP HY SCREENING 31365 CAYETANO MONTEIRO 0 [facility] MAMMOGRAP INC INC HY BILATERAL BLOOD 68010 HANKS, HANKS, OCCULT 0 DON R DON R PEROXIDAS E ACTV QUAL FECES 1 DETER CYTP 54429 [facility] INC CERV/VAG MNL SCRN PHYSICIAN SUPV SELF-CARE 95066 SUPPORT SUPPORT /HOME 0 SOURCE SOURCE MGMT TRAINING EACH 15 MINUTES SELF-CARE 47883 SUPPORT SUPPORT /HOME 0 SOURCE SOURCE MGMT TRAINING EACH 15 MINUTES SELF-CARE 46948 SUPPORT SUPPORT /HOME 0 SOURCE SOURCE MGMT TRAINING EACH 15 MINUTES SELF-CARE 71617 SUPPORT SUPPORT /HOME 0 SOURCE SOURCE MGMT TRAINING EACH 15 MINUTES SELF-CARE 51056 SUPPORT SUPPORT /HOME 0 SOURCE SOURCE MGMT TRAINING EACH 15 MINUTES SELF-CARE 26383 SUPPORT SUPPORT /HOME 0 SOURCE SOURCE MGMT TRAINING EACH 15 MINUTES SELF-CARE 69713 SUPPORT SUPPORT /HOME 0 SOURCE SOURCE MGMT TRAINING EACH 15 MINUTES SELF-CARE 91269 SUPPORT SUPPORT /HOME 0 SOURCE SOURCE MGMT TRAINING EACH 15 MINUTES SELF-CARE 45348 SUPPORT SUPPORT /HOME 0 SOURCE SOURCE MGMT TRAINING EACH 15 MINUTES SELF-CARE 87709 SUPPORT SUPPORT /HOME 0 SOURCE SOURCE MGMT TRAINING EACH 15 MINUTES SELF-CARE 73669 SUPPORT SUPPORT /HOME 0 SOURCE SOURCE MGMT TRAINING EACH 15 MINUTES SELF-CARE 58320 SUPPORT SUPPORT /HOME 0 SOURCE SOURCE MGMT TRAINING EACH 15 MINUTES SELF-CARE 52968 SUPPORT SUPPORT /HOME 0 SOURCE SOURCE MGMT TRAINING EACH 15 MINUTES SELF-CARE 67758 SUPPORT SUPPORT /HOME 0 SOURCE SOURCE MGMT TRAINING EACH 15 MINUTES SELF-CARE 74983 SUPPORT SUPPORT /HOME 0 SOURCE SOURCE MGMT TRAINING EACH 15 MINUTES SELF-CARE 61317 SUPPORT SUPPORT /HOME 0 SOURCE SOURCE MGMT TRAINING EACH 15 MINUTES SELF-CARE 14539 SUPPORT SUPPORT /HOME 0 SOURCE SOURCE MGMT TRAINING EACH 15 MINUTES SELF-CARE 75547 SUPPORT SUPPORT /HOME 0 SOURCE SOURCE MGMT TRAINING EACH 15 MINUTES [facility] E0601 DEBORAH CABRERA S 0 HOME MED HOME MED POSITIVE EQUIP. EQUIP. [facility]WAY [facility] PRESSURE DEVICE SELF-CARE 73836 SUPPORT SUPPORT /HOME 0 SOURCE SOURCE MGMT TRAINING EACH 15 MINUTES SELF-CARE 56924 SUPPORT SUPPORT /HOME 0 SOURCE SOURCE MGMT TRAINING EACH [address] [place] [address] CAYETANO MONTEIRO THYROID 0 [facility] STIMULATI INC INC NG HORMONE TSH DRUG 33822 CAYETANO MONTEIRO SCREEN 0 [facility] QUANTITAT INC INC [place] PHENYTOIN TOTAL DRUG 98289 CAYETANO MONTEIRO SCREEN 0 [facility] QUANTITAT INC INC [place] PHENYTOIN TOTAL AMB A0427 [facility]IA [facility] SERVICE 0 AMBULANCE AMBULANCE ALS SERVICE SERVICE EMERGENCY TRANSPORT LEVEL 1 BLOOD 35821 CAYETANO MONTEIRO COUNT 0 [facility] COMPLETE INC INC AUTO&AUTO DIFRNTL WBC CULTURE 02113 CAYETANO MONTEIRO BACTERIAL 0 [facility] INC INC QUANTTATI VE COLONY COUNT URINE CULTURE 53808 CAYETANO MONTEIRO BCT 0 [facility] ISOL&PRSM INC INC PTV ID ISOLATE EA URINE URNLS DIP 26267 CAYETANO MONTEIRO 0 [facility] STICK/TAB INC INC LET REAGENT AUTO MICROSCOP Y BASIC 74022 CAYETANO MONTEIRO METABOLIC 0 [facility] PANEL INC INC CALCIUM TOTAL SUSCEPTIB 47966 CAYETANO MONTEIRO LTY STDY 0 [facility] ANTIMICRB INC INC IAL MICRO/AGA R DILUTJ GROUND A0425 EM[facility]IA [facility] MILEAGE 0 AMBULANCE AMBULANCE PER SERVICE SERVICE STATUTE MILE AMB A0422 EMELIA [facility] OXYGEN&O2 0 AMBULANCE AMBULANCE SUPPLIES SERVICE SERVICE LIFE SUSTAININ G SITUATION MANUAL 91936 CAYETANO MONTEIRO THERAPY 0 [facility] TQS 1/> INC INC REGIONS EACH 15 MINUTES THERAPEUT 65272 CAYETANO MONTEIRO IC PX 1/> 0 [facility] AREAS INC INC EACH 15 MIN EXERCISES THERAPEUT 52260 CAYETANO MONTEIRO IC PX 1/> 0 [facility] AREAS INC INC EACH 15 MIN EXERCISES APPLICATI 26852 CAYETANO MONTEIRO ON 0 [facility] MODALITY INC INC 1/> AREAS HOT/COLD PACKS MANUAL 10147 CAYETANO MONTEIRO THERAPY 0 [facility] TQS 1/> INC INC REGIONS EACH 15 MINUTES MANUAL 36381 CAYETANO CAYETANO THERAPY 0 [facility] TQS 1/> INC INC REGIONS EACH 15 MINUTES APPLICATI 32243 CAYETANO MONTEIRO ON 0 [facility] MODALITY INC INC 1/> AREAS HOT/COLD PACKS THERAPEUT 97442 CAYETANO MONTEIRO IC PX 1/> 0 [facility] AREAS INC INC EACH 15 MIN EXERCISES THERAPEUT 53387 CAYETANO MONTEIRO IC PX 1/> 0 [facility] AREAS INC INC EACH 15 MIN EXERCISES APPLICATI 32169 CAYETANO CAYETANO ON 0 [facility] MODALITY INC INC 1/> AREAS HOT/COLD PACKS MANUAL 69088 CAYETANO MONTEIRO THERAPY 0 [facility] TQS 1/> INC INC REGIONS EACH 15 MINUTES MANUAL 84132 CAYETANO CAYETANO THERAPY 0 [facility] TQS 1/> INC INC REGIONS EACH 15 MINUTES APPLICATI 38070 CAYETANO MONTEIRO ON 0 [facility] MODALITY INC INC 1/> AREAS HOT/COLD PACKS THERAPEUT 07099 CAYETANO CAYETANO IC PX 1/> 0 [facility] AREAS INC INC EACH 15 MIN EXERCISES NASL A7034 DEBORAH CABRERA INTRFCE 0 HOME MED HOME MED POS ARWAY EQUIP. EQUIP. 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 EQUIP. E [facility] PRESSURE DEVICE CONTINUOU E0601 DEBORAH CABRERA S 0 HOME MED HOME MED POSITIVE EQUIP. EQUIP. [facility] PRESSURE DEVICE TUBING A7037 DEBORAH CABRERA USED WITH 0 HOME MED HOME MED POSITIVE EQUIP. EQUIP. [facility] PRESSURE DEVICE FILTER A7038 DEBORAH CABRERA DISPBL 0 HOME MED HOME MED USED EQUIP. EQUIP. W/POS [facility] ARWAY PRESSURE DEVICE FILTER A7039 DEBORAH CABRERA NON 0 HOME MED HOME MED DISPBL EQUIP. EQUIP. [employer] W/POS [employer] PRESS DEVICE THERAPEUT 72805 CAYETANO MONTEIRO IC PX 1/> 0 [facility] AREAS INC INC EACH 15 MIN EXERCISES APPLICATI 37763 CAYETANO MONTEIRO ON 0 [facility] MODALITY INC INC 1/> AREAS HOT/COLD PACKS MANUAL 88588 CAYETANO MONTEIRO THERAPY 0 [facility] TQS 1/> INC INC REGIONS EACH 15 MINUTES MANUAL 18417 CAYETANO MONTEIRO THERAPY 0 [facility] TQS 1/> INC INC REGIONS EACH 15 MINUTES RADEX 05309 CARLOS CEJA, WRIST 2 0 MEDICAL [facility] IMAGING ASSOCIATE S APPLICATI 49896 CAYETANO MONTEIRO ON 0 [facility] MODALITY INC INC 1/> AREAS HOT/COLD PACKS MEDICAL 78684 CAYETANO MONTEIRO NUTRITION 0 [facility] CENTER ASSMT&IVN TJ INDIV EACH 15 SD THERAPEUT 90299 CAYETANO MONTEIRO IC PX 1/> 0 [facility] AREAS INC INC EACH 15 MIN EXERCISES APPL 96503 CAYETANO MONTEIRO MODALITY 0 [facility] 1/> AREAS INC INC ELEC STIMJ UNATTENDE D THERAPEUT 13369 CAYETANO MOTNEIRO IC PX 1/> 0 [facility] AREAS INC INC EACH 15 MIN EXERCISES APPLICATI 30840 CAYETANO MONTEIRO ON 0 [facility] MODALITY INC INC 1/> AREAS HOT/COLD PACKS MANUAL 77136 CAYETANO MONTEIRO THERAPY 0 [facility] TQS 1/> INC INC REGIONS EACH 15 MINUTES MANUAL 84024 CAYETANO MONTEIRO THERAPY 0 [facility] TQS 1/> INC INC REGIONS EACH 15 MINUTES PHYSICAL 27881 CAYETANO MONTEIRO THERAPY 0 [facility] RE-EVALUA INC INC TION APPLICATI 81885 CAYETANO MONTEIRO ON 0 [facility] MODALITY INC INC 1/> AREAS HOT/COLD PACKS THERAPEUT 10573 CAYETANO MONTEIRO IC PX 1/> 0 [facility] AREAS INC INC EACH 15 MIN EXERCISES APPL 05949 CAYETANO MONTEIRO MODALITY 0 [facility] 1/> AREAS INC INC PARAFFIN BATH APPL 25152 CAYETANO MONTEIRO MODALITY 0 [facility] 1/> AREAS INC INC PARAFFIN BATH THERAPEUT 42854 CAYETANO MONTEIRO IC PX 1/> 0 [facility] AREAS INC INC EACH 15 MIN EXERCISES MANUAL 77109 CAYETANO MONTEIRO THERAPY 0 [facility] TQS 1/> INC INC REGIONS EACH 15 MINUTES THERAPEUT 52756 CAYETANO MONTEIRO IC PX 1/> 9 [facility] AREAS INC INC EACH 15 MIN EXERCISES APPLICATI 23975 CAYETANO MONTEIRO ON 9 [facility] MODALITY INC INC 1/> AREAS HOT/COLD PACKS MANUAL 93230 CAYETANO MONTEIRO THERAPY 9 [facility] TQS 1/> INC INC REGIONS EACH 15 MINUTES APPL 47123 CAYETANO MONTEIRO MODALITY 9 [facility] 1/> AREAS INC INC PARAFFIN BATH APPL 03002 CAYETANO MONTEIRO MODALITY 9 [facility] 1/> AREAS INC INC ELEC STIMJ UNATTENDE D APPL 17419 CAYETANO MONTEIRO MODALITY 9 [facility] 1/> AREAS INC INC ELEC STIMJ UNATTENDE D MANUAL 27194 CAYETANO MONTEIRO THERAPY 9 [facility] TQS 1/> INC INC REGIONS EACH 15 MINUTES APPLICATI 17865 CAYETANO MNOTEIRO ON 9 [facility] MODALITY INC INC 1/> AREAS HOT/COLD PACKS THERAPEUT 43301 CAYETANO MONTEIRO IC PX 1/> 9 [facility] AREAS INC INC EACH 15 MIN EXERCISES POLYSOM 98815 CAYETANO MONTEIRO 6/>YRS 9 [facility] SLEEP 4/> INC INC ADDL SHAUN ATTND THERAPEUT 41531 CAYETANO MONTEIRO IC PX 1/> 9 [facility] AREAS INC INC EACH 15 MIN EXERCISES MANUAL 62542 CAYETANO MONTEIRO THERAPY 9 [facility] TQS 1/> INC INC REGIONS EACH 15 MINUTES APPLICATI 55709 CAYETANO MONTEIRO ON 9 [facility] MODALITY INC INC 1/> AREAS HOT/COLD PACKS APPL 46002 CAYETANO MONTEIRO MODALITY 9 [facility] 1/> AREAS INC INC ELEC STIMJ UNATTENDE D APPL 50108 CAYETANO MONTEIRO MODALITY 9 [facility] 1/> AREAS INC INC ELEC STIMJ UNATTENDE D APPL 32606 CAYETANO MONTEIRO MODALITY 9 [facility] 1/> AREAS INC INC VASOPNEUM ATIC DEVICES THERAPEUT 28955 CAYETANO MONTEIRO IC PX 1/> 9 [facility] AREAS INC INC EACH 15 MIN EXERCISES PHYSICAL 15727 CAYETANO CAYETANO THERAPY 9 [facility] EVALUATIO INC INC N DEBRIDEME 08292 KARRIE YOON, NT 9 KRISTI Akhtar MASTOIDEC JUANCHO CAVITY SIMPLE BINOCULAR 48841 KARRIE YOON, 9 KRISTI Akhtar MICROSCOP Y SEPARATE DX PROCEDURE WRIST L3908 TRACY TRACY HAND 9 YOAV CASON MD ORTHOSIS PSC PSC EXT CONTROL COCK-UP PREFAB RADEX 68270 [place] [facility], WRIST 2 9 MEDICAL STEPHANI VIEWS IMAGING ASSOCIATE S LIPID 50688 COMBINED COMBINED PANEL 9 PHYSICIAN PHYSICIAN S LAB S LAB BLOOD 33600 COMBINED COMBINED COUNT 9 PHYSICIAN PHYSICIAN COMPLETE S LAB S LAB AUTO&AUTO DIFRNTL WBC COMPREHEN 71609 COMBINED COMBINED SIVE 9 PHYSICIAN PHYSICIAN METABOLIC S LAB S LAB PANEL DRUG 31871 COMBINED COMBINED SCREEN 9 PHYSICIAN PHYSICIAN QUANTITAT S LAB S LAB [place] PHENYTOIN TOTAL LIPID 58634 COMBINED COMBINED PANEL 9 PHYSICIAN [place] [address] COMBINED COMBINED THYROID 9 PHYSICIAN PHYSICIAN STIMULATI S LAB S LAB NG HORMONE TSH RADEX 19947 [place] BRENNA, WRIST 2 9 MEDICAL ZHAO Pardo VIEWS IMAGING ASSOCIATE S RADEX 40220 HANKS, HANKS, ANKLE 9 DON R DON R COMPLETE MINIMUM 3 VIEWS RADEX 79520 CAYETANO MONTEIRO WRIST 2 9 [facility] VIEWS INC INC APPLICATI 47849 BOWEN WISEMAN, ON CAST 9 TRACY TRACY ELBOW FINGER SHORT ARM RADEX 78436 CAYETANO MONTEIRO WRIST 2 9 [facility] VIEWS INC INC RADEX 34197 CAYETANO MONTEIRO WRIST 2 9 [facility] VIEWS INC INC BLOOD 14363 CAYETANO MONTEIRO COUNT 9 [facility] COMPLETE INC INC AUTO&[place] [address] CAYETANO MONTEIRO INFUSION 9 [facility] THERAPY/P INC INC ROPHYLAXI S /DX 1ST TO 1 [place] [address] CAYETANO MONTEIRO INFUSION 9 [facility] THERAPY INC INC PROPHYLAX IS/DX EA HOUR CLTX DSTL 27734 CAYETANO MONTEIRO RDL 9 [facility] FX/EPIPHY INC INC SL SEP W/MANJ WHEN PERF ANES 17968 [facility], RADIUS 9 ANESTH MELLISA L ULNA OF THE WRIST/VINAY CONROY D BONES CLOSED PX CLOS RDUC 7902 CAYETANO MONTEIRO FRACTURE 9 [facility] INC INC RADIUS&UL NA WITHOUT INTRL FIX RADEX 25977 CAYETANO MONTEIRO HAND 9 [facility] MINIMUM 3 [place] [address] COMBINED COMBINED THYROID 9 PHYSICIAN PHYSICIAN STIMULATI S LAB S LAB NG HORMONE TSH DRUG 48201 COMBINED COMBINED SCREEN 9 PHYSICIAN PHYSICIAN QUANTITAT S LAB S LAB [place] PHENYTOIN TOTAL DRUG 14465 CAYETANO MONTEIRO SCREEN 9 [facility] QUANTITAT INC INC [place] PHENYTOIN TOTAL COMPREHEN 92496 CAYETANO MONTEIRO SIVE 9 [facility] [place] [address] CAYETANO MONTEIRO THYROID 9 [facility] STIMULATI INC INC NG HORMONE TSH ECG 01005 CAYETANO ZUNIGA ROUTINE 9 [facility] W/LEAST PROF SERV 12 LDS I&R ONLY RHYTHM 14906 CAYETANO MONTEIRO ECG 1-3 9 [facility] LEADS INC INC TRACING ONLY W/O I&R BLOOD 33763 CAYETANO CAYETANO COUNT 9 [facility] COMPLETE INC INC AUTO&AUTO DIFRNTL WBC 3D 24823 CAYETANO MONTEIRO RENDERING 9 [facility] W/INTERP INC INC & POSTPROCE SS SUPERVISI [place] ECG 25344 CAYETANO MONTEIRO ROUTINE 9 [facility] ECG INC INC W/LEAST 12 LDS TRCG ONLY W/O I&[place] [address] CLARIBELRadha BRENNA, HEAD/BRAI 9 MEDICAL ZHAO P N W/O IMAGING CONTRAST ASSOCIATE MATERIAL S AMBULANCE A0429 [facility] SERVICE 9 AMBULANCE AMBULANCE BLS SERVICE SERVICE EMERGENCY TRANSPORT GROUND A0425 [facility] PER SERVICE SERVICE STATUTE MILE OPH 08786 [facility] MAGANA MEDICAL 9 VISION SG M XM&EVAL COMPRHNSV ESTAB PT 1/> DRUG 82392 COMBINED COMBINED SCREEN 9 PHYSICIAN PHYSICIAN QUANTITAT S LAB S LAB [place] PHENYTOIN TOTAL GLUCOSE 09966 COMBINED COMBINED TOLERANCE 9 PHYSICIAN PHYSICIAN TEST GTT S LAB S LAB 3 [place] [address] COMBINED COMBINED THYROID 9 PHYSICIAN PHYSICIAN STIMULATI S LAB S LAB NG HORMONE TSH LIPID 91074 COMBINED COMBINED PANEL 9 PHYSICIAN [place] [address] COMBINED COMBINED THYROID 9 PHYSICIAN PHYSICIAN STIMULATI S LAB S LAB NG HORMONE TSH DRUG 11551 COMBINED COMBINED SCREEN 9 PHYSICIAN PHYSICIAN QUANTITAT S LAB S [place] [address] COMBINED COMBINED THYROID 8 PHYSICIAN PHYSICIAN STIMULATI S LAB S LAB NG HORMONE TSH DRUG 39251 COMBINED COMBINED SCREEN 8 PHYSICIAN PHYSICIAN QUANTITAT S LAB S LAB [place] PHENYTOIN TOTAL MICROSURG 36986 KARRIE YOON, CATHERINES REQ 8 KRISTI Akhtar USE OPERATING MICROSCOP E DEBRIDEME 04329 KARRIE YOON, KORTNEY 8 KRISTI Akhtar MASTOIDEC JUANCHO CAVITY SIMPLE DEBRIDEME 71340 KARRIE YOON, KORTNEY 8 KRISTI Akhtar MASTOIDEC JUANCHO CAVITY SIMPLE MICROSURG 82250 KARRIE YOON, CATHERINES REQ 8 KRISTI Akhtar USE OPERATING MICROSCOP E DRUG 72800 COMBINED COMBINED SCREEN 8 PHYSICIAN PHYSICIAN QUANTITAT S LAB S LAB [place] PHENYTOIN TOTAL GENERAL 68333 COMBINED COMBINED HEALTH 8 PHYSICIAN PHYSICIAN PANEL S LAB S LAB COMPUTER- 26527 CAYETANO MONTEIRO AIDED 8 [facility] DETECTION INC INC SCREENING MAMMOGRAP HY SCREENING 80567 CAYETANO MONTEIRO 8 [facility] MAMMOGRAP INC INC HY BILATERAL DUP-SCAN 02924 CAYETANO CAYETANO XTR VEINS 8 [facility] INC INC UNILATERA L/LIMITED STUDY DUPLEX 22415 CAYETANO CAYETANO SCAN 8 [facility] EXTRACRAN INC INC IAL ART COMPL BI STUDY COMPREHEN 22311 CAYETANO MONTEIRO SIVE 8 [facility] METABOLIC INC INC PANEL DRUG 93108 CAYETANO CAYETANO SCREEN 8 [facility] QUANTITAT INC [place] [address] CYAETANO MONTEIRO THYROID 8 [facility] STIMULATI INC INC NG HORMONE TSH BLOOD 12040 CAYETANO MONTEIRO COUNT 8 [facility] COMPLETE INC INC AUTO&AUTO DIFRNTL WBC LIPID 21684 CAYETANO MONTEIRO PANEL 8 [facility] INC INC RADIOLOGI 92371 LATONYA HANKS C EXAM 8 DON R DON R PELVIS COMPL MINIMUM 3 VIEWS RADIOLOGI 52336 LATONYA HANKS C EXAM 8 DON R DON R PELVIS COMPL MINIMUM 3 VIEWS COMMODE E0163 DEBORAH CABRERA CHAIR 8 HOME MED HOME MED MOBILE OR EQUIP. EQUIP. [facility] STATIONAR Y W/FIXED ARMS DRUG 44180 [facility] SCREEN 8 MED LAB MED LAB QUANTITAT [place] PHENYTOIN TOTAL SBSQ 79975 LATONYA HANKS NURSING 8 DON R DON R FACILITY CARE/DAY E/M STABLE 10 MIN DRUG 22951 [facility] SCREEN 8 MED LAB MED LAB QUANTITAT [place] PHENYTOIN TOTAL PHYSICAL 59199 [facility] THERAPY 8 HEALTHCAR HEALTHCAR EVALUATIO E E N THERAPEUT 00478 [facility] IC PX 1/> 8 [facility] HEALTHCAR AREAS E E EACH [place] [address] AMY [facility]ESMONT 1/> AREAS 8 HEALTHCAR HEALTHCAR EACH 15 E [place] [address] AMY AMESPARAMJITT 1/> AREAS 8 [facility]ALTHCAR HEALTHCAR EA 15 E E MIN GAIT TRAINJ W/STAIR THERAPEUT 97396 [facility] AMY ACTVITY 8 [facility]ALTHCAR HEALTHCAR DIRECT PT E E CONTACT EACH 15 MIN OCCUPATIO 26608 [facility] 8 [facility]ALTHCAR HEALTHCAR THERAPY E E EVALUATIO N SELF-CARE 61155 [facility] REYES /HOME 8 HEALTHCAR HEALTHCAR MGMT E E TRAINING EACH 15 MINUTES HOSPITAL 74154 [facility] 8 DON R DON R DAY MANAGEMEN T 30 MIN/< GROUND A0425 [facility] 8 AMBULANCE AMBULANCE PER SERVICE SERVICE STATUTE [facility] 28598 [facility] 8 DON R DON R CARE/DAY 25 MINUTES SBSQ 08644 [facility] 8 DON R DON R CARE/DAY 25 MINUTES SBSQ 46723 [facility] 8 DON R DON R CARE/DAY 25 MINUTES RADEX 82089 [place] [facility] SACRUM & 8 MEDICAL ZHAO P COCCYX IMAGING MINIMUM 2 ASSOCIATE VIEWS S RADEX 26394 [place] [facility] SPINE 8 MEDICAL ZHAO P LUMBOSACR IMAGING AL ASSOCIATE MINIMUM 4 S VIEWS RADIOLOGI 62531 [place] Angeels CEJA 8 MEDICAL ZHAO P EXAMINATI IMAGING ON PELVIS ASSOCIATE 1/2 S VIEWS 3D 86887 [place] CEJA 8 MEDICAL ZHAO P IMAGING W/INTERP& ASSOCIATE POSTPROC S DIFF WORK STATION [place] LOWER [address]144 [place] [facility] EXTREMITY 8 MEDICAL ZHAO P W/O IMAGING CONTRAST ASSOCIATE MATERIAL S RADEX HIP 96983 [place] [facility], 8 MEDICAL ZHAO P UNILATERA IMAGING L ASSOCIATE COMPLETE S MINIMUM 2 VIEWS INITIAL 18662 [facility] 8 DON R DON R CARE/DAY 50 MINUTES RADEX HIP 80058 [facility] Carrillo UNILATERA RADIOLOGY L COMPLETE ASSOCIATE MINIMUM 2 S PSC VIEWS RADIOLOGI 02998 [facility] 8 [place]IST[place] S EXAMINATI RADIOLOGY ON PELVIS 1/2 ASSOCIATE VIEWS S PSC GROUND A0425 [facility]LEAGE 8 [place] [facility] PER STATUTE AMBULANCE AMBULANCE MILE AMBULANCE A0429 [facility] SERVICE 8 [place] [facility] BLS EMERGENCY AMBULANCE AMBULANCE TRANSPORT DEBRIDEME 22396 KARRIE YOON, KORTNEY 8 KRISTI Akhtar MASTOIDEC JUANCHO CAVITY CMPLX MICROSURG 40560 KARRIE YOON TQS REQ 8 KRISTI Akhtar USE OPERATING MICROSCOP E ANESTHESI 56418 [facility] SULLIVAN 8 ANESTH FAUSTO Maxine EXTERNAL OF THE MIDDLE & BLUEGRASS INNER EAR W/BX NOS LEVEL III 86308 PATHOLOGY PATHOLOGY SURG 8 & & PATHOLOGY CYTOLOGY CYTOLOGY LAB LAB GROSS&TANI ROSCOPIC EXAM MICROSURG 59548 KARRIE YOON TQS REQ 8 KRISTI Akhtar USE OPERATING MICROSCOP E DEBRIDEME 14540 KARRIE YOON NT 8 KRISTI Akhtar MASTOIDEC JUANCHO CAVITY SIMPLE Encounters Encounter Start End Date Code Location Performer Type Date OFFICE 91918 [place] [facility] 7 7 NANCY FIELDS T VISIT [facility] 15 MINUTES OFFICE 50083 [facility] Y[facility]ON OUTPATIEN 7 7 PHYSICIAN T VISIT S GROUP 15 MINUTES OFFICE 21145 [facility] OUTPATIEN 7 7 PHYSICIAN T VISIT S GROUP 15 MINUTES OFFICE 65839 [facility] OUTPATIEN 7 7 PHYSICIAN T VISIT S GROUP 15 MINUTES OFFICE 04424 [place] [facility] OUT[facility] 7 7 NANCY FIELDS T VISIT PSC 15 MINUTES OFFICE 79821 [facility] OUTPATI[facility] 7 7 NANCY FIELDS T VISIT PSC 15 MINUTES OFFICE 24387 [facility] OUTPATIEN 7 7 PHYSICIAN T VISIT S GROUP 15 MINUTES EMERGENCY 03282 [facility] 7 7 PHYSICIAN DEPARTMEN S, PLLC T VISIT HIGH/URGE NT SEVERITY [facility] T EMERGENCY 17139 [facility] 7 7 [facility] DEPARTMEN [facility] T VISIT MODERATE SEVERITY OFFICE 40967 [facility] OUT[facility] 7 7 NANCY FIELDS T VISIT PSC 15 MINUTES OFFICE 58615 [facility] 7 7 NANCY FIELDS T VISIT PSC 15 MINUTES OFFICE 33354 [facility] RONDA CONSULTAT 7 7 PHYSICIAN ION S GROUP NEW/ESTAB PATIENT 40 MIN [facility] 7 7 [facility] T OFFICE 75986 [facility] OUTPATIEN 6 6 NANCY FIELDS T VISIT PSC 15 MINUTES OFFICE 25756 [facility] Y[facility]ON OUTPATIEN 6 6 PHYSICIAN KERI T VISIT S GROUP 10 MINUTES [facility] 6 [facility] 6 6 [facility] OFFICE 08917 [facility] OUTPATIEN 6 6 PHYSICIAN KERI T VISIT S GROUP 15 MINUTES [facility] 6 6 [facility] 6 6 [facility] - 6 6 [facility] OUTPATI[facility] INC T OFFICE 95028 [facility] OUTPATIEN 6 6 PHYSICIAN KERI T VISIT S GROUP 10 MINUTES [facility] - 6 6 [facility] INC T OFFICE 63322 [facility] OUTPATIEN 6 6 NANCY JUAREZ T VISIT PSC 25 MINUTES OFFICE 47313 A [facility] MARTY OUTPATIEN 6 6 NANCY FIELDS T VISIT PSC 15 MINUTES [facility] [place] [facility] T OFFICE 80575 [facility] OUT[facility] 6 6 PHYSICIAN KERI T VISIT S GROUP 15 MINUTES PERIODIC 58450 A C TALIBLA PREVENTIV 6 6 NANCY FIELDS JEA E MED EST PSC PATIENT 40-64YRS OFFICE 41371 [facility] OUTPATIEN 6 6 PHYSICIAN KERI T VISIT S GROUP 15 MINUTES OFFICE 28043 [place] CRUZ OUTPATIEN 6 6 NANCY OLSON T VISIT PSC 15 MINUTES OFFICE 13475 A C ARMINDA OUTPATIEN 6 6 NANCY JUAREZ T VISIT PSC 15 MINUTES OFFICE 06429 [facility] OUTPATI[facility] 6 6 PHYSICIAN KERI T VISIT S GROUP 15 MINUTES OFFICE 47017 [place] [facility] OUTPATIEN 5 5 NANCY FIELDS T VISIT PSC 25 MINUTES OFFICE 07926 [place] [facility] OUTPATIEN 5 5 NANCY FIELDS T VISIT PSC 15 MINUTES HOME [facility] 5 5 HOME INPATIENT [facility]ENCY [facility], 5 5 HOME [facility] OFFICE 85390 [place] [facility] OUTPATIEN 5 5 NANCY FIELDS T VISIT PSC 15 MINUTES OFFICE 62094 [place] [facility] OUTPATIEN 5 5 NANCY FIELDS T VISIT PSC 15 MINUTES OFFICE 61448 [facility] OUT[facility] 5 5 PHYSICIAN KERI T VISIT S GROUP 15 MINUTES EMERGENCY 06675 [place] [facility] DEPART[facility] T VISIT LOW/MODER SEVERITY EMERGENCY 17683 [facility] 5 5 PHYSICIAN HARRY DEPARTMEN S PLLC T VISIT MODERATE SEVERITY [facility] [place] [facility] T OFFICE 37957 [facility] OUTPATI[facility] 5 5 PHYSICIAN KERI T NEW 30 S GROUP MINUTES OFFICE 36141 [place] [facility] OUTPATIEN 5 5 NANCY FIELDS T VISIT PSC 25 MINUTES OFFICE 16712 [place] FERG[place]ON OUTPATIEN 5 5 NANCY FIELDS T VISIT PSC 15 MINUTES OFFICE 67643 [place] FERG[place] OUTPATIEN 5 5 NANCY FIELDS T VISIT PSC 15 MINUTES OFFICE 36027 [place] [facility] OUTPATIEN 4 4 NANCY FIELDS T VISIT PSC 15 MINUTES OFFICE 51630 [facility] OUTPATIEN 4 4 KERI KERI T VISIT 15 MINUTES [facility] [place] [facility] T OFFICE 84941 [facility] OUT[facility] 4 4 KERI KERI T VISIT 15 MINUTES OFFICE 94173 [place] MARTY OUTPATIEN 4 4 T VISIT 15 MINUTES OFFICE 66980 [place] MART[facility] [place] [facility] OUTPATIEN 4 4 T VISIT 25 MINUTES OFFICE 04129 [place] MARTY [place] [facility] OUTPATIEN 4 4 T VISIT 15 MINUTES [facility] [place] [facility] T OFFICE 27519 [place] MARTY [place] [facility] OUTPATIEN 4 4 T VISIT 25 MINUTES OFFICE 42497 [facility] OUTPATIEN 4 4 KERI KERI T VISIT 15 MINUTES OFFICE 99089 [place] [facility] MARTY OUTPATIEN 4 4 T VISIT 15 MINUTES OFFICE 72756 [place] FIELDS MARTY OUTPATIEN 3 3 T VISIT 10 MINUTES OFFICE 91084 [place] FIELDS MARTY OUTPATIEN 3 3 T VISIT 15 MINUTES OFFICE 44955 [place] [facility] OUTPATIEN 3 3 NANCY FIELDS T VISIT PSC 15 MINUTES OFFICE 35259 A C [place]OR[place]INO MARTY OUTPATIEN 3 3 NANCY FIELDS T VISIT PSC 15 MINUTES OFFICE 07339 A C DUGLASPELA OUTPATIEN 3 3 NANCY JUAREZ T VISIT PSC 15 MINUTES [facility] [place] [facility] 3 3 [facility] T HOME [facility], 3 3 [facility] T AGENCY OFFICE 44493 A C TALIBLA OUTPATIEN 3 3 NANCY JUAREZ T NEW 30 PSC MINUTES OFFICE 45917 LAT[facility] HANKS OUTPATIEN 3 3 DON DON T VISIT 15 MINUTES OFFICE 80710 [facility] OUTPATIEN 3 3 KERI KERI T VISIT 15 MINUTES Emergency DEVYN [place] Ang (ER) 3 14:58 3 15:34 [facility] Leticia EMERGENCY 31582 [facility] H[facility] SE[facility]ITY [facility] [place] [facility] T EMERGENCY 13306 [place] 3 3 [facility] DEPART[facility] INC T VISIT LOW/MODER SEVERITY [facility] [place] [facility] T OFFICE 99500 KARRIE LIMON OUTPATIEN 3 3 KERI KERI T VISIT 10 MINUTES OFFICE 51457 HANKS HANKS OUTPATIEN 3 3 DON DON T VISIT 15 MINUTES [facility] [place] [facility] 3 [facility] [place] [facility] 3 3 [facility]EN [facility] T PERIODIC 36087 LATONYA HANKS PREVENTIV 3 3 DON DON E MED EST PATIENT 40-64YRS OFFICE 44274 K[facility]RIE [facility] OUTPATIEN 3 3 KERI KERI T VISIT 25 MINUTES HOME [facility], 3 3 HOME OUTPATIEN HEALTH T AGENCY HOME [facility] 2 2 [facility] EMERGENCY 50272 STEFFANY ANG 2 2 III ADDIS III [facility] T VISIT HIGH/URGE NT SEVERITY [facility] [place] [facility] 2 2 [facility] EMERGENCY 89651 [place] 2 2 [facility] T VISIT LOW/MODER SEVERITY OFFICE 38413 LATONYA HOLGUINS OUTPATIEN 2 2 DON DON T VISIT 25 MINUTES EMERGENCY 26445 NAHOMY NAHOMY 2 2 [facility] T VISIT HIGH/URGE NT SEVERITY EMERGENCY 80762 [place] 2 2 [facility] T VISIT LOW/MODER SEVERITY [facility] [place] [facility] 2 2 [facility] OFFICE 77219 LATONYA SHEAHENS OUTPATIEN 2 2 DON DON T VISIT 25 MINUTES OFFICE 25271 HANKS HANKS OUTPATIEN 2 2 DON DON T VISIT 25 MINUTES [facility] [place] [facility] 2 2 [facility] OFF[facility] 31816 HANKS HANKS OUTPATIEN 2 2 DON DON T VISIT 25 MINUTES OFFICE 19585 HANKS HANKS OUTPATIEN 2 2 DON DON T VISIT 15 MINUTES [facility] [place] [facility] [place] [facility] T OFFICE 08243 HANKS HANKS OUTPATIEN 2 2 DON DON T VISIT 15 MINUTES [facility] 2 2 [facility] OUTPATIEN & HOME HE T [facility], 2 2 [facility] OUTPATIEN & HOME HE T OFFICE 24904 HANKS HANKS OUTPATIEN 2 2 DON DON T VISIT 15 MINUTES OFFICE 69489 HANKS HANKS OUTPATIEN 1 1 DON DON T VISIT 15 MINUTES [facility] [place] [facility] T OFFICE 45392 [place] [facility] 1 1 [facility]INIC 25 PSC MINUTES [facility] [place] [facility] T OFFICE 06758 HANKS HANKS OUTPATIEN 1 1 DON DON T VISIT 15 MINUTES OFFICE 98199 HANKS HANKS OUTPATIEN 1 1 DON DON T VISIT 15 MINUTES OFFICE 52898 [place] OUTPATIEN 1 1 [facility] VISIT CLINIC 25 PSC MINUTES [facility] [place] [facility] T OFFICE 80810 HANKS HANKS OUTPATIEN 1 1 DON DON T VISIT 15 MINUTES EMERGENCY 33401 [place] 1 1 [facility] DEPARTMEN INC T VISIT HIGH/URGE NT SEVERITY EMERGENCY 40198 PEDRITO HERNANDEZ DEPT 1 1 EMERGENCY VISIT SERVICES HIGH SEVERITY& THREAT [facility] [place] [facility] T OFFICE 45109 KARRIE [facility] OUTPATIEN 1 1 KERI KERI T VISIT 15 MINUTES EMERGENCY 69545 PEDRITO ANG DEPT 1 1 EMERGENCY III ADDIS VISIT SERVICES HIGH SEVERITY& THREAT [facility] 66303 [place] 1 1 [facility] DEPARTMEN INC T VISIT HIGH/URGE NT SEVERITY [facility] [place] [facility] 1 [facility] T [facility] [place] [facility] T OFFICE 11406 LATONYA SHEAHENS OUTPATIEN 1 1 DON DON T VISIT 15 MINUTES [facility] [facility] 1 [facility] T OFFICE 11365 [place] [facility] 1 1 [facility] NEW/ESTAB PSC PATIENT 60 MIN [facility] [place] [facility] 1 [facility] T OFFICE 11463 LATONYA SHEAHENS OUTPATIEN 1 1 DON DON T VISIT 15 MINUTES [facility] [place] [facility] 1 [facility] INC T EMERGENCY 42373 PEDRITO COREA DEPT 1 1 EMERGENCY TANI VISIT SERVICES HIGH SEVERITY& THREAT [facility] 41329 [place] 1 1 [facility] DEPARTMEN INC T VISIT HIGH/URGE NT SEVERITY [facility] [place] [facility] 1 1 [facility] OUTPAT[facility] INC T EMERGENCY 29455 [place] 0 0 [facility] DEPARTMEN INC T VISIT LOW/MODER SEVERITY OFFICE 78908 LATONYA HOLGUINS OUTPATIEN 0 0 DON DON T VISIT 15 MINUTES EMERGENCY 93543 PEDRITO HERNANDEZ DEPT 0 0 EMERGENCY VISIT SERVICES HIGH SEVERITY& THREAT [facility] [place] [facility] 0 0 [facility] INC T OFFICE 22368 CONRAD MARTINES OUTPATIEN 0 0 RUPERT RUPERT T NEW 45 MINUTES OFFICE 31464 LATONYA HOLGUINS OUTPATIEN 0 0 DON DON T VISIT 15 MINUTES OFFICE 47750 KARRIE [facility] OUTPATIEN 0 0 KERI KERI T VISIT 15 MINUTES [facility] [place] [facility] T OFFICE 90265 LATONYA HOLGUINS OUTPATIEN 0 0 DON DON T VISIT 15 MINUTES OFFICE 25528 KARRIE Y[facility] OUTPATIEN 0 0 KERI KERI T VISIT 10 MINUTES OFFICE 96639 LATONYA HOLGUINS OUTPATIEN 0 0 DON DON T VISIT 15 MINUTES [facility] [place] [facility] INC T EMERGENCY 16904 PEDRITO SOKASteven BAB 0 0 EMERGENCY DEPARTMEN SERVICES T VISIT HIGH/URGE NT SEVERITY OFFICE 88536 LATONYA HOLGUINS OUTPATIEN 0 0 DON DON T VISIT 15 MINUTES [facility] [place] [facility] T OFFICE 95453 HANSK, HANKS, OUTPATIEN 0 0 DON R DON R T VISIT 15 MINUTES OFFICE 22070 KARRIE YOON, OUTPATIEN 0 0 KRISTI G KRISTI G T VISIT 15 MINUTES [facility] [place] [facility] T [facility] [place] [facility] INC T OFFICE 96366 [place] Y[facility]ON[facility], OUTPATIEN 0 0 KRISTI G KRISTI G T VISIT 15 MINUTES [facility] [place] [facility] OUTPATI[facility] INC T PERIODIC 40642 LATONYA HANKS PREVENTIV 0 0 DON R DON R E MED EST PATIENT 40-64YRS OFFICE 93303 [facility] MARTINES OUTPATIEN 0 0 , EDWIN PINEDA T VISIT W W 15 MINUTES [facility] [place] [facility] T OFFICE 00080 LATONYA HANKS OUTPATIEN 0 0 DON R DON R T VISIT 15 MINUTES EMERGENCY 54692 PEDRITO SALDANA, 0 0 EMERGENCY [facility] T VISIT HIGH/URGE ASSOCIATE NT S [facility] [place] [facility] OFFICE 92098 LATONYA HANKS OUTPATIEN 0 0 DON R DON R T VISIT 15 MINUTES [facility] [place] [facility] 0 [facility] [place] [facility] 0 [facility] OFFICE 49582 BOWEN WISEMAN OUTPATIEN 0 0 TRACY TRACY T VISIT 15 MINUTES [facility] [place] [facility] [place] [facility] [place] [facility] 9 9 [facility] [place] [facility] 9 9 [facility] T OFFICE 05212 LATONYA HANKS OUTPATIEN 9 9 DON R DON R T VISIT 15 MINUTES OFFICE 65995 BOWEN WISEMAN OUTPATIEN 9 9 TRACY TRACY T VISIT 15 MINUTES OFFICE 78837 BOWEN WISEMAN OUTPATIEN 9 9 TRACY TRACY T VISIT 15 MINUTES OFFICE 92193 LATONYA HANKS OUTPATIEN 9 9 DON R DON R T VISIT 15 MINUTES OFFICE 53618 LATONYA HANKS OUTPATIEN 9 9 DON R DON R T VISIT 15 MINUTES [facility] [place] [facility] 9 [facility] T [facility] [place] [facility] 9 9 [facility] INC T OFFICE 27271 LATONYA HANKS OUTPATIEN 9 9 DON R DON R T VISIT 15 MINUTES [facility] [place] [facility] 9 9 [facility] INC T [facility] [place] [facility] 9 9 [facility] OUTPATIEN INC T [facility] [place] [facility] 9 9 [facility] T OFFICE 38676 BOWEN WISEMAN OUTPATIEN 9 9 TRACY TRACY T NEW 45 MINUTES [facility] [place] [facility] 9 9 [facility] OUT[facility]IEN INC T EMERGENCY 50688 [place] 9 9 [facility] DEPARTMEN INC T VISIT MODERATE SEVERITY OFFICE 37132 LATONYA HANKS OUTPATIEN 9 9 DON R DON R T VISIT 15 MINUTES OFFICE 64514 LATONYA HANKS OUTPATIEN 9 9 DON R DON R T VISIT 15 MINUTES EMERGENCY 69511 PEDRITO SALDANA, DEPT 9 9 EMERGENCY NEAL VISIT SERVICES O HIGH SEVERITY& ASSOCIATE THREAT S [facility] [place] - 9 9 [facility] OUT[facility]EN INC T HOME [facility], 9 9 HOME OUTPATIEN HEALTH T CARE INC HOME 88880 FAMILY VISIT EST 9 9 HOME PT HEALTH [facility] CARE INC SEVERITY 40 MINUTES HOME 96876 FAMILY VISIT EST 9 9 HOME PT HEALTH [facility] INC SEVERITY 40 MINUTES HOME [facility], 9 9 HOME OUTPATIEN HEALTH T CARE INC HOME 35064 FAMILY VISIT EST 9 9 HOME PT HEALTH MOD-[facility] CARE INC SEVERITY 40 MINUTES HOME [facility], 9 9 HOME OUTPATIEN HEALTH T CARE INC OFFICE 95696 LATONYA HANKS OUTPATIEN 9 9 DON R DON R T VISIT 15 MINUTES OFFICE 58241 LATONYA HANKS OUTPATIEN 8 8 DON R DON R T VISIT 15 MINUTES [facility] [place] [facility] 8 8 [facility] OUTPAT[facility]EN INC T OFFICE 98427 LATONYA HANKS OUTPATIEN 8 8 DON R DON R T VISIT 15 MINUTES EMERGENCY 12716 CLARY SALDANA, 8 8 [facility] T VISIT ON MODERATE SEVERITY EMERGENCY 72995 [place] 8 8 [facility] DEPARTMEN INC T VISIT LOW/MODER SEVERITY [facility] [place] [facility] 8 8 [facility] [place] [facility] 8 8 [facility] INC T [facility] [place] [facility] T OFFICE 17553 LATONYA HANKS OUTPATIEN 8 8 DON R DON R T VISIT 15 MINUTES OFFICE 64154 LATONYA HANKS OUTPATIEN 8 8 DON R DON R T VISIT 15 MINUTES OFFICE 93271 LATONYA HANKS OUTPATIEN 8 8 DON R DON R T VISIT 15 MINUTES OFFICE 75028 LATONYA HANKS OUTPATIEN 8 8 DON R DON R T VISIT 15 MINUTES HOME [facility], 8 8 HOME [facility] HEALTH T AGENCY SPECIAL [facility] 8 8 [facility] OFFICE 02617 KARRIE YOON OUTPATIEN 8 8 KRISTI Akhtar T VISIT 15 MINUTES SPECIAL [facility] 8 8 [facility] [place] - 8 8 [facility] INPATIENT [facility] OFFICE 22466 KARRIE YOON OUTPATIEN 8 8 KRISTI Akhtar T VISIT 15 MINUTES
--- OUTSIDE RECORDS SUMMARY | 2017-04-07 19:54 | External Medical Summary Rpt | CCD ---
Author Author , ALVA CALLE Address Unknown Phone [email or web address] Care Team Providers Care Model Builder Name Role Phone A Angeles CRUZ MD PSC, A Unavailable Unavailable Angeles CRUZ MD PSC FABIO GARCIA Unavailable Unavailable RADHA STEIN Unavailable Unavailable PENDLETON ALL, PENDLETON ALL Unavailable Unavailable [facility] Unavailable Unavailable SERVICE, [facility] Unavailable Unavailable SERVICE, [facility] Unavailable Unavailable SERVICE, [facility] TRACY WISEMAN, Unavailable Unavailable TRACY WISEMAN [facility] Unavailable Unavailable LAB, [facility] MEME VALENTINE Unavailable Unavailable MEME YZA, Unavailable Unavailable MEME YAZ STEPHANI VALENTINE, Unavailable Unavailable STEPHANI VALENTINE MARTINES RUPERT, Unavailable Unavailable MARTINESMERCEDES MARTINES RUPERT, Unavailable Unavailable EDWIN ENRIQUEZ, Unavailable Unavailable EDWIN MARTINES [facility] Unavailable Unavailable [place], [facility] [place] [facility]available [facility], Unavailable Unavailable [facility] Unavailable Unavailable [facility], [facility]ANS Unavailable Unavailable SERV[facility], [facility] FEDERATED Unavailable Unavailable TRANSPORTATION SER, [facility] NAHOMY TANI, NAHOMY Unavailable Unavailable TANI [facility] Unavailable Unavailable [place], [facility] Unavailable Unavailable INC, [facility] Unavailable Unavailable HOSPITAL P, [facility] CALISTA MEJIA, Unavailable Unavailable CALISTA MEJIA HINES Unavailable Unavailable ANITA HOWARD Unavailable Unavailable MARIETTA HOWARD A, Unavailable Unavailable HOWARD, MARIETTA A [facility], Unavailable Unavailable [facility] Unavailable Unavailable IM[facility]ING [facility], [facility] [place] Unavailable Unavailable [facility] YOON, YOON Unavailable Unavailable YOON KERI, YOON Unavailable Unavailable KERI YOON KERI, YOON Unavailable Unavailable KERI YOON, KRISTI G, Unavailable Unavailable YOON, KRISTI G VITAL, MELLISA L, Unavailable Unavailable VITAL, MELLISA L AUDIE JR DWI, AUDIE Unavailable Unavailable JR DWI [facility] Unavailable Unavailable 11, [facility] 11 [facility] Unavailable Unavailable ACTION, [facility] HENDERSON O2, Unavailable Unavailable HENDERSON O2 NAVIN HARRY, NAVIN Unavailable Unavailable HARRY [facility], Unavailable Unavailable [facility] Unavailable Unavailable SERVICES, [facility] [place] Unavailable Unavailable [facility]ANCE, [facility] ROB ZUNIGA JR Unavailable Unavailable F, ROB ZUNIGA JR [facility] Unavailable Unavailable [facility] ZHAO CEJA, Unavailable Unavailable ZHAO CEJA FLORENTINO MARTY, FLORENTINO MARTY Unavailable Unavailable FLORENTINO MARTY, FLORENTINO MARTY Unavailable Unavailable MULBERRY HARRY, Unavailable Unavailable MULBERRY HARRY [facility] Unavailable Unavailable [facility], [facility] N[facility] REG[facility] & Unavailable Unavailable HOME [facility], [facility], [facility], [facility] Unavailable Unavailable LABS, [facility], Un[facility] Unavailable [facility], [facility] PATHOLOGY [facility] CY[facility]OLOGY Unavailable Unavailable LAB, [facility]Y [facility] LAB [facility], Unavailable Unavailable [facility], Unavailable Unavailable [facility] RONDA, RONDA Unavailable Unavailable JACKY LEI, Unavailable Unavailable JACKY CASON MD Unavailable Unavailable [facility], TRACY CASON MD [facility] SCIFRES ANG, SCIFRES Unavailable Unavailable ANG SCIFRES [...] SOURCE FAUSTO GERBER, Unavailable Unavailable FAUSTO GERBER [facility] # Unavailable Unavailable [id number], [facility] # [id number] FLAVIA ALEJANDRO Unavailable Unavailable [facility] Unavailable Unavailable AGENCY, [facility] WEHRVISHNU III ADDIS, Unavailable Unavailable WEDEIDRE III ADDIS STEFFANY MANCINI, Unavailable Unavailable STEFFNAY Ang Unavailable Unavailable III , Rob OLSON, NANCY Unavailable Unavailable WHITNEY Purpose Continuity of Care Document - 07-04-2007 through 2016 Problems Code Diagnosis DOS Provider Status R748 ABNORMAL 02-21-2017 [facility] OTHER SERUM ENZYMES H6691 OTITIS 01-29-2017 [facility] MEDIA PHYSICIANS UNSPECIFIED GROUP RIGHT EAR H7011 CHRONIC 01-29-2017 [facility] MASTOIDITIS PHYSICIANS RIGHT EAR GROUP H7091 UNSPECIFIED 01-01-2017 [facility] PHYSICIANS MASTOIDITIS GROUP RIGHT EAR H7441 POLYP OF 01-01-2017 [facility] RIGHT PHYSICIANS MIDDLE EAR GROUP E010 IODINE-DEFI 12-11-2016 [facility] CIENCY PHYSICIANS RELATED GROUP DIFFUSE ENDEMIC GOITER E069 THYROIDITIS 12-11-2016 [facility] PHYSICIANS UNSPECIFIED GROUP R69 ILLNESS 12-11-2016 FEDERATED UNSPECIFIED TRANSPORTAT ION SER D649 ANEMIA 11-16-2016 [facility] UNSPECIFIED YOGESH HOLDINGS E785 HYPERLIPIDE 11-16-2016 [facility] GWEN YOGESH UNSPECIFIED HOLDINGS Q30665 EPILEPSY 11-16-2016 [facility] UNS NOT YOGESH [...] DYSPHAGIA 10-16-2016 A Angeles CRUZ UNSPECIFIED PSC D92134R UNS FOREIGN 10-16-2016 A Angeles CRUZ BODY PSC LARYNX CAUS OTH INJURY INIT ENC Z6825 BODY MASS 10-16-2016 A Angeles CRUZ INDEX BMI PSC 25.0-25.9 ADULT E039 HYPOTHYROID 10-12-2016 [facility] ISM PHYSICIANS UNSPECIFIED GROUP [id number] FOOD IN 10-09-2016 [facility] ESOPHAGUS PHYSICIANS, CAUSING OTH PLLC INJURY INITIAL ENC Z0389 ENCOUNTER 10-09-2016 [facility] OT MEDICAL SUSPCT DZ & IMAGING ASS COND RULED OUT R2233 LOC 09-07-2016 A Angeles CRUZ SWELLING PSC MASS & LUMP UPPER LIMB BILATERAL K811 CHRONIC 07-05-2016 [facility] CHOLECYSTIT PHYSICIANS IS GROUP O54834 ENCOUNTER 07-05-2016 [facility] P AL CARIOVASCUL AR EXAM B17738 ENCOUNTER 07-05-2016 [facility] P AL RESPIRATORY EXAM D22584 ENCOUNTER 07-05-2016 [facility] P AL LABORATORY EXAM J309 ALLERGIC 05-31-2016 A Angeles CRUZ RHINITIS [facility] UNSPECIFIED H7013 CHRONIC 05-26-2016 [facility] MASTOIDITIS PHYSICIANS BILATERAL GROUP H6522 CHRONIC 05-11-2016 [facility] SEROUS [facility] OTITIS INC MEDIA LEFT EAR R4702 DYSPHASIA 05-11-2016 [place] [facility] R7989 OTHER SPEC 05-11-2016 [place] ABNORMAL MEDICAL FINDINGS IMAGING ASS BLOOD CHEMISTRY R945 ABNORMAL 05-11-2016 [facility] RESULTS OF [facility] LIVER INC FUNCTION STUDIES E876 HYPOKALEMIA 05-08-2016 [facility] R21 RASH AND 04-07-2016 [facility] OTHER YOGESH NONSPECIFIC HOLDINGS SKIN ERUPTION R0781 PLEURODYNIA 02-22-2016 [facility] R252 CRAMP AND 02-17-2016 [facility] SPASM YOGESH HOLDINGS R5383 OTHER 02-17-2016 [facility] FATIGUE YOGESH HOLDINGS R0981 NASAL 01-04-2016 A Angeles CRUZ CONGESTION PSC Z1231 ENCOUNTER 11-18-2015 [place] SCREENING MEDICAL MAMMO MALIG IMAGING ASS NEOPLASM BREAST H905 UNSPECIFIED 11-11-2015 [facility] PHYSICIANS SENSORINEUR GROUP AL HEARING LOSS 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 YOGESH GENERAL RTN HOLDINGS W/O ABNORMAL FIND H6092 UNSPECIFIED 09-22-2015 [facility] OTITIS PHYSICIANS EXTERNA GROUP LEFT EAR H7012 CHRONIC 09-22-2015 [facility] MASTOIDITIS PHYSICIANS LEFT EAR GROUP Y06913 SPONDYLOSIS 07-01-2015 [facility] W/O PHYSICIANS MYELOPATH/R GROUP ADICULOPATH Y CERV RGN 4011 ESSENTIAL 03-05-2015 A Angeles MARINIO PSC N, BENIGN 18538 03-05-2015 [facility] TRANSPORTAT ION SER 9331 FOREIGN 02-22-2015 [facility] BODY IN PHYSICIANS LARYNX GROUP 4019 UNSPECIFIED 02-15-2015 [facility] ESSENTIAL [facility] HYPERTENSIO INC N 5303 STRICTURE 02-15-2015 [facility] AND [facility] STENOSIS OF INC ESOPHAGUS 29009 OTHER 02-15-2015 [facility] MEDICAL INVOLVING IMAGING ASS HEAD AND NECK 22634 DYSPHAGIA 02-15-2015 [facility] UNSPECIFIED PHYSICIANS, PLLC V140 PERSONAL 02-15-2015 [facility] HISTORY OF [facility] ALLERGY TO INC PENICILLIN 3814 NONSUPPRATV 01-20-2015 [facility] OTITIS PHYSICIANS MEDIA NOT GROUP SPEC ACUT/CHRON 3839 UNSPECIFIED 01-20-2015 [facility] PHYSICIANS MASTOIDITIS GROUP 4730 CHRONIC 01-20-2015 [facility] MAXILLARY PHYSICIANS SINUSITIS GROUP 2449 UNSPECIFIED 11-24-2014 [facility] HYPOTHYROID ISM 27930 UNSPEC 11-24-2014 A Angeles CRUZ EPILEPSY PSC WITHOUT MENTION INTRACT EPILEPSY 4779 ALLERGIC 11-24-2014 A Angeles CRUZ RHINITIS PSC CAUSE UNSPECIFIED 3804 IMPACTED 09-10-2014 YOON KERI CERUMEN 3831 CHRONIC 09-10-2014 Y[facility]ON KERI MASTOIDITIS 57809 ESOPHAGEAL 07-02-2014 A Angeles CRUZ REFLUX PSC 06365 SIMPLE/UNSP 04-09-2014 [facility] ECIFIED [facility] P SEROUS OTITIS MEDIA 41066 UNSPECIFIED 04-09-2014 [facility] [place] [address] CHO[place] 04-09-2014 [facility] P AND MASTOID 71740 OTHER CHEST 01-20-2014 FLORENTINO MARTY PAIN 3674 PRESBYOPIA 12-12-2013 SCIFRES ANG 4770 ALLERGIC 10-31-2013 FLORENTINO MARTY RHINITIS DUE TO POLLEN V7612 OTHER 09-30-2013 [facility] SCREENING [facility] MAMMOGRAM INC 2859 UNSPECIFIED 09-15-2013 [facility] 4610 ACUTE 09-04-2013 K[facility]E SAAVEDRA MAXILLARY SINUSITIS 4612 ACUTE 09-04-2013 KARRIE SAAVEDRA ETHMOIDAL SINUSITIS 7840 HEADACHE 08-07-2013 FLORENTINO FERGUSON 32335 CRAMP OF 05-01-2013 FLORENTINO FERGUSON LIMB 84020 HYPERTENSIO 02-12-2013 Maxine CELESTIN MD [facility] 77047 OTHER 02-11-2013 [facility] CONVULSIONS [facility] INC 27168 OBSTRUCTIVE 2012 KARRIE SAAVEDRA SLEEP APNEA 401.9 401.9 12-20-2012 [facility] N NOS Hospital 493.90 493.90 12-20-2012 [place] ASTHMA, [facility] UNSPECIFIED Hospital 03845 ASTHMA, 12-20-2012 [facility] UNSPECIFIED [facility] UNSPECIFIED STATUS 530.3 530.3 12-20-2012 [place] ESOPHAGEAL [facility] STRICTURE Hospital 780.39 780.39 12-20-2012 [facility] CONVULSIONS Hospital 9351 FOREIGN 12-20-2012 WE[facility] III BODY IN ADDIS ESOPHAGUS V14.0 V14.0 12-20-2012 [place] HX-PENICILL [facility] IN ALLERGY Hospital 2409 GOITER, 12-12-2012 [place] UNSPECIFIED [facility] 2459 UNSPECIFIED 12-09-2012 KARRIE SAAVEDRA THYROIDITIS 7881 DYSURIA 10-14-2012 [facility] DON 28774 BLISTERS 10-14-2012 [facility] WITH DON EPIDERMAL LOSS DUE TO BURN-BREAST 2724 OTHER AND 09-12-2012 [facility] UNSPECIFIED [facility] HYPERLIPIDE GWEN V7231 ROUTINE 09-06-2012 [facility] GYNECOLOGIC DON AL EXAMINATION 10531 OSTEOARTHRO 06-27-2012 [facility] S UNSPEC HEALTH WHETHER AGENCY GEN/LOC UNSPEC SITE 7812 ABNORMALITY 06-27-2012 [facility] OF GAIT HEALTH AGENCY 7993 UNSPECIFIED 06-27-2012 [facility] DEBILITY HEALTH AGENCY V571 OTHER 06-27-2012 [facility] PHYSICAL HEALTH THERAPY AGENCY 6259 UNSPEC 06-08-2012 [place] [facility] IMAGING ASS W/FEMALE GENITAL ORGANS 81711 PAIN IN 06-08-2012 [place] JOINT MEDICAL PELVIC IMAGING ASS REGION AND THIGH 7295 PAIN IN 06-08-2012 [facility] TISSUES OF SERVICE LIMB 8439 SPRAIN&STRA 06-08-2012 WEHRMAN III IN OF ADDIS UNSPECIFIED SITE OF HIP&THIGH E8889 UNSPECIFIED 06-08-2012 [facility] FALL [facility] SERVICE 6980 PRURITUS 06-05-2012 [facility] ANI DON 38216 OSTEOARTHRO 06-04-2012 [place] S UNSPEC MEDICAL GEN/LOC IMAGING ASS PELV REGION&THIG H 06563 DEGEN 06-04-2012 [place] LUMBAR/LUMB MEDICAL OSACRAL IMAGING ASS INTERVERTEB RAL DISC 7243 SCIATICA 06-04-2012 [facility] INC 8472 LUMBAR 06-04-2012 [facility] SPRAIN AND [facility] STRAIN INC 7821 RASH AND 05-31-2012 [facility] OTHER DON NONSPECIFIC SKIN ERUPTION 99259 PAIN IN 05-03-2012 [facility] JOINT, DON SHOULDER REGION 4554 EXTERNAL 02-23-2012 [facility] THROMBOSED DON HEMORRHOIDS 931 FOREIGN 01-29-2012 [facility] BODY IN EAR DON 15239 HEMANGIOMA 01-05-2012 [facility] OF SKIN AND DON SUBCUTANEOU S TISSUE 3813 OTHER&UNSPE 07-12-2011 [facility] C CHRONIC DON NONSUPPURAT [place] OTITIS MEDIA 74582 LOC-REL 04-11-2011 NEW EPILEPSY & DEER TRAIL ES W/SPS CLINIC PSC W/O INTRACTABL EPIL 318 OTHER 03-27-2011 SUPPORT SPECIFIED SOURCE INTELLECTUA L DISABILITIE S 2761 HYPOSMOLALI 2010 [facility] TY AND/OR EMERGENCY HYPONATREMI SERVICES A 7802 SYNCOPE AND 2010 [facility] COLLAPSE [facility] SERVICE 58163 NAUSEA WITH 2010 [facility] VOMITING [facility] INC 30560 VOMITING 2010 [facility] ALONE [facility]Y SERVICES 4739 UNSPECIFIED 12-18-2010 [facility] SINUSITIS [facility]ERGENCY SERVICES 7804 DIZZINESS 12-18-2010 [facility] AND [facility]ERGENCY GIDDINESS SERVICES 7862 COUGH 12-18-2010 [place] [facility] 7906 OTHER 10-04-2010 [facility] ABNORMAL [facility] BLOOD INC CHEMISTRY 20380 OTHER 09-27-2010 NEW CONDITIONS DEER TRAIL OF BRAIN CLINIC PSC 460 ACUTE 09-19-2010 [facility] NASOPHARYNG DON ITIS 7810 ABNORMAL 08-20-2010 [facility] INVOLUNTARY AMBULANCE MOVEMENTS SERVICE 64075 MUSCLE 05-13-2010 [facility] WEAKNESS [facility]ERGENCY (GENERALIZE SERVICES D) 72721 OTHER 05-13-2010 [facility] FATIGUE INC 14804 HYPERSOMNIA 04-08-2010 [facility] WITH SLEEP RUPERT APNEA UNSPECIFIED 60845 HYPERSOMNIA 04-08-2010 MARTINES RUPERT UNSPECIFIED 91051 UNSPECIFIED 03-31-2010 YOON KERI INFECTIVE OTITIS EXTERNA 5589 OTH&UNSPEC 03-18-2010 [facility] NONINFECTIO DON US GASTROENTER ITIS&COLITI S 7847 EPISTAXIS 03-03-2010 YOON KERI 76857 ABDOMINAL 02-11-2010 [facility] PAIN RIGHT DON LOWER QUADRANT 24036 ABDOMINAL 02-11-2010 [facility] PAIN, LEFT DON LOWER QUADRANT 3829 UNSPECIFIED 12-22-2009 [facility], OTITIS DON R MEDIA 26739 THYROTOX 11-02-2009 KARRIE, W/O KRISTI Akhtar GOITER/OTH CAUSE W/O CRISIS 78325 OPEN 08-19-2009 [facility]RACTURE HOME MED OTHER [employer] [facility] SPECIFIED PART PELVIS OTHER 01948 EPILEPSY 08-13-2009 [facility] COMP PG DON R /PP UNSPEC EPIS CARE/NA 62814 REFLUX 07-28-2009 [place]OPHAGITIS [place] R 58780 UNSPECIFIED 07-28-2009 GEOVANNA [place] N 03777 CLOSED 07-27-2009 [facility] FRACTURE [facility] UNSPECIFIED INC PART RADIUS W/ULNA 2630 MALNUTRITIO 07-13-2009 [facility] HE [facility] DEGREE 36538 OTHER 07-13-2009 [place] CLOSED MEDICAL FRACTURES IMAGING OF DISTAL ASSOCIATES END OF RADIUS 66039 CLOSED 07-13-2009 WIS[place]AN, FRACTURE OF TRACY DISTAL END OF ULNA V653 DIETARY 07-13-2009 [facility] COUNSELING 462 ACUTE 03-17-2009 [facility], PHARYNGITIS DON R 4660 ACUTE 03-17-2009 [facility], BRONCHITIS DON R 30594 CLOSED 03-09-2009 [facility] FRACTURE OF [facility] INC UNSPECIFIED PART OF RADIUS 30358 UNSPECIFIED 03-09-2009 [place] CLOSED MEDICAL FRACTURE OF IMAGING CARPAL ASSOCIATES BONE 42224 UNSPECIFIED 02-03-2009 [facility], SITE OF DON R ANKLE SPRAIN AND STRAIN 22157 CLOSED 01-12-2009 [facility] COLLES [facility] FRACTURE INC 77636 CLOSED 01-08-2009 [facility] FRACTURE OF [facility] LOWER END INC OF RADIUS WITH ULNA E8490 PLACE OF 01-07-2009 [place] OCCURRENCE, MEDICAL HOME IMAGING ASSOCIATES E8842 ACCIDENTAL 01-07-2009 [place] FALL FROM MEDICAL CHAIR IMAGING ASSOCIATES 920 CONTUSION 12-04-2008 [facility] FACE AMBULANCE SCALP AND SERVICE NECK EXCEPT EYE 12436 OTHER 11-05-2008 COMBINED ABNORMAL PHYSICIANS GLUCOSE LAB V5869 LONG-TERM 10-23-2008 [facility] (CURRENT) HEALTH USE OF CARE INC OTHER MEDICATIONS V5883 ENCOUNTER 10-23-2008 [facility] FOR [facility]ALTH THERAPEUTIC CARE INC DRUG MONITORING 4659 ACUTE URIS 09-15-2008 [place] OF DON R UNSPECIFIED SITE 7823 EDEMA 01-08-2008 [facility], DON R 7242 LUMBAGO 01-02-2008 [facility] INC 7245 UNSPECIFIED 01-02-2008 [facility] 7859 OTHER 12-05-2007 [place] SYMPTOMS MEDICAL INVOLVING IMAGING CARDIOVASCU ASSOCIATES LAR SYSTEM 7820 DISTURBANCE 11-25-2007 [place] OF SKIN DON R SENSATION 8088 UNSPECIFIED 11-13-2007 [facility] CLOSED DON R FRACTURE OF PELVIS 4618 OTHER ACUTE 09-18-2007 [place] SINUSITIS DON R 808 FRACTURE OF 09-02-2007 [facility] P[facility] HOME [facility] 3489 UNSPECIFIED 08-29-2007 [facility] CONDITION HEALTH OF BRAIN AGENCY V1588 PERSONAL 08-29-2007 [facility] HISTORY OF HEALTH FALL AGENCY 8208 CLOSED 07-31-2007 [facility] FRACTURE [facility]BULANCE UNSPECIFIED SERVICE PART NECK FEMUR 8082 CLOSED 07-27-2007 [place] FRACTURE OF MEDICAL PUBIS IMAGING ASSOCIATES 91113 UNS ADVRS 07-27-2007 [facility] EFF OTH RX [facility] MEDICINAL&B INC IOLOGICAL SBSTNC 7937 NONSPC ABN 07-26-2007 [place] FIND RAD RADIOLOGY & OTH EXM ASSOCIATES [...] 07 08 7. 10 00 HO Ac WY 06 -1 -0 50 00 ME ti [...] 00 7- 0- 00 06 TO ve WY 51 20 20 07 WN IL 80 [...] 00 7- 6- 00 06 TO ve WY 51 20 20 07 WN IL 80 [...] 00 6- 1- 00 06 TO ve WY 51 20 20 07 WN IL 80 [...] 00 6- 0- 00 06 TO ve WY 51 20 20 07 WN IL 80 [...] 8- 8- 00 SI 11 HE ve WY 02 20 20 DE NS ED 20 [...] 3- 2- 00 SI 47 HE ve WY 75 20 20 DE NS IL 98 [...] 3- 1- 00 SI 47 HE ve WY 75 20 20 DE NS IL 98 [...] E TA 10 BL 05 ET 91 WY 68 06 06 0 15 3 71 [...] 09 11 11 E 9 PH DO WY AR N OP MA R CY 50 [...] 09 [address] W[place] AR OR OP MA G CY 50 [...] 1- 1- 00 SI 44 HE ve WY 75 20 20 DE NS IL 96 [...] 1- 9- 00 SI 44 HE ve WY 75 20 20 DE NS IL 96 [...] 1- 0- 00 SI 44 HE ve WY 75 20 20 DE NS IL 96 [...] 1- - 00 SI 44 HE ve WY 75 20 20 DE NS IL 96 [...] 2- 3- 00 SI 51 ON ve WY 02 20 20 DE ED 20 [address] SO AR OR LO MA G NE CY 4 OF MG CY DO NT SE HI PK AN A LI 00 12 04 [address] Ac SI 17 -0 -[address] 37 EP ti NO 23 1- 9- 00 SI 44 HE ve WY 75 20 20 DE NS IL 96 [...] 2- 2- 00 SI 51 ON ve WY 02 20 20 DE ED 20 10 [...] NO 23 1 SI 44 HE ve WY 75 20 20 DE NS IL 96 [...] 1- 8- 00 SI 44 HE ve WY 75 20 20 DE NS IL 96 [...] 1- 4- 00 SI 44 HE ve WY 75 20 20 DE NS IL 96 [...] 1- 7- 00 SI 44 HE ve WY 75 20 20 DE NS IL 96 [...] 3- 9- 00 SI 09 HE ve WY 75 20 20 DE NS IL 96 [...] 5- 4- 00 SI 66 HE ve WY 02 20 20 DE NS ED 20 [...] 00 10 15 ME 25 No Ac WY 06 -0 -1 .0 D 42 t [...] 6- 0- 00 SI 22 Av ve WY 02 20 20 DE ai ED 20 [...] 00 27 14 ME 25 No Ac WY 46 -0 -0 .0 D 42 t [...] 00 60 30 ME 25 No Ac WY 46 -0 -2 .0 D 42 t ti OX 20 6- 6- 00 CA 76 Av ve EN 19 20 20 RE 1 ai 00 08 08 la 50 5 PH bl 0 AR e MG MA CY TA BL LL ET C CI 00 02 03 00 10 15 ME 25 No Ac WY 06 -0 -2 .0 D 42 t [...] Procedure DOS Code Location Performer Comment COMPREHEN 46454 LAB[facility] OF [facility]ONE OF SIVE 7 [facility] INC. INC. PANEL NONEMERG A0120 FEDERATED FEDERATED TRNSPRT: 7 [facility] TRANSPORT TRANSPORT MTN [facility]OT SYS NONEMERG A0120 FEDERATED FEDERATED TRNSPRT: 7 [facility]I-BUS TRANSPORT TRANSPORT MTN [facility]OT SYS COLLECTIO 68434 A C TALIBLA N VENOUS 7 NANCY FIELDS BLOOD PSC VENIPUNCT URE DRUG 00094 [facility] LAB MAX SCREEN 7 YOGESH YOGESH QUANTITAT HOLDINGS HOLDINGS BROOKLYNN OXCARBAZE PINE GENERAL 26557 LAB [facility] HEALTH 7 YOGESH YOGESH PANEL HOLDINGS HOLDINGS LIPID 97006 A C KILPELA PANEL 7 [place] [address] LAB MAX LAB MAX FREE 7 YOGESH YOGESH THYROXINE HOLDINGS HOLDINGS OPHTH 45810 [facility] 7 XM&EVAL COMPRHNSV ESTAB PT 1/> NONEMERG A0120 FEDERATED FEDERATED TRNSPRT: 7 MINI-BUS TRANSPORT TRANSPORT MTN ATION SER [facility]/OT SYS UNCLASSIF J3490 [facility] IED DRUGS 7 [facility] INC INC RADIOLOGI 59036 CARLOS Reynoso 7 MEDICAL EXAMINATI IMAGING ON CHEST ASS SINGLE VIEW FRONTAL THER 24176 [facility] PROPH/DX 7 [facility] NJX IV INC INC PUSH SINGLE/1S T SBST/DRUG NONEMERG A0120 FEDERATED FEDERATED TRNSPRT: 7 [facility]I-BUS TRANSPORT TRANSPORT MTN ATION SER [facility]/OTH SYS NONEMERG A0120 FEDERATED FEDERATED TRNSPRT: 7 [facility]I-BUS TRANSPORT TRANSPORT MTN [facility]ION [facility] S[facility] COLLECTIO 84530 [facility] N VENOUS 7 [facility] H[facility] BLOOD INC INC VENIPUNCT URE COMPREHEN 83923 [facility] SIVE 7 [facility] METABOLIC INC INC PANEL ECG 37451 [facility] ROUTINE 7 [facility] ECG INC INC W/LEAST 12 LDS TRCG ONLY W/O I&R ECG 41557 [facility] JULIANARIE ROUTINE 7 [facility] W/LEAST P 12 LDS I&R ONLY THERAPEUT 13174 Maxine HILLIARD IC 6 NANCY FIELDS PROPHYLAC PSC TIC/DX INJECTION SUBQ/IM NONEMERG A0120 FEDERATED FEDERATED TRNSPRT: 6 [facility]I-BUS TRANSPORT TRANSPORT MTN [facility] UNCLASSIF J3490 [facility] IED DRUGS 6 [facility] INC INC HEPATOBIL 74110 [place] PENDLETON ALL SYST 6 MEDICAL IMAG INC IMAGING GB ASS W/PHARMA INTERVENJ NONEMERG A0120 FEDERATED FEDERATED TRNSPRT: 6 [facility]I-BUS TRANSPORT TRANSPORT MTN ATION [facility] RADEX 55202 CAYETANO MONTEIRO ESOPHAGUS 6 [facility] [place] [address] CAYETANO MONTEIRO ABDOMINAL 6 [facility] REAL INC INC TIME W/IMAGE LIMITED NONEMERG A0120 FEDERATED FEDERATED TRNSPRT: 6 MINI-BUS TRANSPORT TRANSPORT MTN ATION SER ATION [facility]/OT SYS COMPREHEN [id number] [place] SIVE 6 DIAGNOSTI DIAGNOSTI METABOLIC CS CS PANEL COLLECTIO 60484 Maxine HILLIARD N VENOUS 6 NANCY FIELDS JEA BLOOD PSC VENIPUNCT URE NONEMERG A0120 FEDERATED FEDERATED TRNSPRT: 6 MINI-BUS TRANSPORT TRANSPORT MTN [facility]ION [facility] [id number] CAYETANO MONTEIRO FREE 6 [facility] [place] [address] CAYETANO MONTEIRO THYROID 6 [facility] STIMULATI INC INC NG HORMONE TSH NONEMERG A0120 FEDERATED FEDERATED TRNSPRT: 6 MINI-BUS TRANSPORT TRANSPORT MTN ATION SER ATION SER AREA/OTH SYS COMPREHEN 29058 LAB MAX LAB MAX SIVE 6 YOGESH YOGESH [employer] HOLDINGS HOLDINGS PANEL COLLECTIO 29908 Maxine HILLIARD N VENOUS 6 NANCY FIELDS JE BLOOD PSC VENIPUNCT URE NONEMERG A0120 FEDERATED FEDERATED TRNSPRT: 6 MINI-BUS TRANSPORT TRANSPORT MTN ATION SER ATION SER AREA/OTH SYS RADEX 14679 [place] ALL ESOPHAGUS 6 [place] [address] CAYETANO MONTEIRO THYROID 6 [facility] STIMULATI [place] [address] CAYETANO MONTEIRO FREE 6 [facility] THYROXINE INC INC NONEMERG A0120 FEDERATED FEDERATED TRNSPRT: 6 MINI-BUS TRANSPORT TRANSPORT MTN ATION SER ATION SER AREA/OTH SYS COLLECTIO 75308 CAYETANO MONTEIRO N VENOUS 6 [facility] BLOOD INC INC VENIPUNCT URE NONEMERG A0120 FEDERATED FEDERATED TRNSPRT: 6 MINI-BUS TRANSPORT TRANSPORT MTN ATION SER ATION SER AREA/OTH SYS NONEMERG A0120 FEDERATED FEDERATED TRNSPRT: 6 MINI-BUS TRANSPORT TRANSPORT MTN ATION SER ATION SER AREA/OTH SYS RADEX 56255 [place] ALL RIBS UNI 6 MEDICAL W/POSTERO IMAGING ANT CH ASS MINIMUM 3 VIEWS DRUG 07491 LAB MAX LAB MAX SCREEN 6 YOGESH YOGESH QUANTITAT HOLDINGS [place] [address] LAB MAX LOUISVILL MAGNESIUM 6 [place] [address] LAB MAX LAB MAX FREE 6 YOGESH YOG[place] [address] LAB MAX LAB MAX THYROID 6 YOGESH YOGESH STIMULATI HOLDINGS HOLDINGS NG HORMONE TSH NONEMERG A0120 FEDERATED FEDERATED TRNSPRT: 6 MINI-BUS TRANSPORT TRANSPORT MTN ATION SER ATION SER AREA/OTH SYS COMPREHEN 99453 LAB MAX LAB MAX SIVE 6 [facility] METABOLIC HOLDINGS HOLDINGS PANEL NONEMERG A0120 FEDERATED FEDERATED TRNSPRT: 6 MINI-BUS TRANSPORT TRANSPORT MTN ATION SER ATION SER AREA/OTH SYS THERAPEUT 94934 A C A C IC 6 NANCY CRUZ MD PROPHYLAC PSC PSC TIC/DX INJECTION SUBQ/IM INJ J0702 A C FLORENTINO MARTY BETAMETHA 6 NANCY FIELDS SONE PSC ACETATE & PHOSPHATE 3 MG INJECTION J1030 A C A C 6 NANCY CRUZ MD METHYLPRE PSC PSC DNISOLONE ACETATE 40 MG COMPUTER- 97244 CAYETANO MONTEIRO AIDED 6 [facility] DETECTION INC INC SCREENING MAMMOGRAP HY NONEMERG A0120 FEDERATED FEDERATED TRNSPRT: 6 MINI-BUS TRANSPORT TRANSPORT MTN ATION SER ATION SER AREA/OTH SYS SCREENING G0202 [facility] 6 [facility] [place] MAMMOGRAP IMAGING HY KEVIN ASS INCL CAD WHEN PERFORMD NONEMERG A0120 FEDERATED FEDERATED TRNSPRT: 6 MINI-BUS TRANSPORT TRANSPORT MTN ATION SER ATION SER AREA/OTH SYS NONEMERG A0120 FEDERATED FEDERATED TRNSPRT: 6 MINI-BUS TRANSPORT TRANSPORT MTN ATION SER ATION SER AREA/OTH SYS CYTP 30909 LAB MAX LAB MAX CERV/VAG 6 [facility] AUTO THIN HOLDINGS HOLDINGS LAYER PREP MNL SCREEN NONEMERG A0120 FEDERATED FEDERATED TRNSPRT: 6 MINI-BUS TRANSPORT TRANSPORT MTN ATION SER ATION SER AREA/OTH SYS BASIC 86971 LAB MAX LAB MAX METABOLIC 6 YOGESH YOGESH PANEL HOLDINGS HOLDINGS CALCIUM TOTAL DRUG 91594 LAB MAX LAB MAX SCREEN 6 YOGESH YOGESH QUANTITAT HOLDINGS HOLDINGS [place] [address] LAB MAX LAB MAX THYROXINE 6 YOGESH [place] [address] LAB MAX LAB MAX TRIIODOTH 6 YOGESH YOGESH YRONINE HOLDINGS HOLDINGS T[address] [place] [address] LAB MAX LAB MAX THYROID 6 YOGESH YOGESH STIMULATI HOLDINGS HOLDINGS NG HORMONE TSH THYROID 60075 LAB MAX LAB MAX HORM 6 YOGESH YOGESH UPTK/THYR HOLDINGS HOLDINGS OID HORMONE BINDING RATIO CHOLESTER 45756 A C NANCY OL 6 NANCY FIELDS WHITNEY SERUM/WHO PSC LE BLOOD TOTAL GLUCOSE 77511 A C NANCY QUANTITAT 6 NANCY FIELDS WHITNEY BROOKLYNN BLOOD PSC XCPT REAGENT STRIP BLOOD 17557 A C CRUZ COUNT 6 NANCY FIELDS WHITNEY COMPLETE PSC AUTO&AUTO DIFRNTL WBC LIPOPROTE 27358 A C NANCY IN DIR 6 NANCY FIELDS WHITNEY TERESA HIGH PSC DENSITY CHOLESTER OL NONEMERG A0120 FEDERATED FEDERATED TRNSPRT: 6 MINI-BUS TRANSPORT TRANSPORT MTN ATION SER ATION SER AREA/OTH SYS TRANSFERA 91709 A C NANCY SE 6 NANCY FIELDS WHITNEY ASPARTATE PSC AMINO AST SGOT TRANSFERA 87623 A C NANCY SE 6 NANCY FIELDS WHITNYE [place] [address] A C NANCY TRIGLYCER 6 NANCY FIELDS [...] ATION SER ATION SER AREA/OTH SYS BASIC 55923 [facility] METABOLIC 5 DIAGNOSTI DIAGNOSTI PANEL CS CS CALCIUM TOTAL BLOOD 28181 A C FLORENTINO MATRY COUNT 5 NANCY FIELDS COMPLETE PSC AUTO&[place] [address] QUEST QUEST THYROID 5 DIAGNOSTI DIAGNOSTI STIMULATI CS CS NG HORMONE TSH NONEMERG A0120 FEDERATED FEDERATED TRNSPRT: 5 MINI-BUS TRANSPORT TRANSPORT MTN ATION SER ATION [facility]/OT SYS DIRECT G0154 [facility] AGENCY AGENCY /HOSPIC E EA 15 MIN NONEMERG A0120 FEDERATED FEDERATED TRNSPRT: 5 MINI-BUS TRANSPORT TRANSPORT [facility] G0154 [facility] SK[facility] AGENCY AGENCY /HOSPIC E EA 15 MIN NONEMERG A0120 FEDERATED FEDERATED TRNSPRT: 5 MINI-BUS TRANSPORT TRANSPORT MTN [facility] DIRECT G0154 [facility] SK[facility] AGENCY AGENCY /HOSPIC E EA 15 MIN DIRECT G0154 [facility]ILL [facility] 15 MIN DIRECT G0154 [facility] SKILL 5 [facility] MIN DIRECT G0154 [facility] SKILL 5 [facility] EA 15 MIN DIRECT G0154 [facility] SKILL 5 [facility]ENCY [facility] EA 15 MIN NONEMERG A0120 FEDERATED FEDERATED TRNSPRT: 5 MINI-BUS TRANSPORT TRANSPORT MTN ATION SER ATION [facility]/OT SYS NONEMERG A0120 FEDERATED FEDERATED TRNSPRT: 5 MINI-BUS TRANSPORT TRANSPORT MTN ATION SER [facility]OT SYS NONEMERG A0120 FEDERATED FEDERATED TRNSPRT: 5 MINI-BUS TRANSPORT TRANSPORT MTN ATION SER ATION [facility]/OT SYS RADIOLOGI 87287 CAYETANO Reynoso 5 [facility] EXAMINATI INC INC ON NECK SOFT TISSUE NONEMERG A0120 FEDERATED FEDERATED TRNSPRT: 5 MINI-BUS TRANSPORT TRANSPORT MTN ATION SER ATION SER AREA/OTH SYS NONEMERG A0120 FEDERATED FEDERATED TRNSPRT: 5 MINI-BUS TRANSPORT TRANSPORT MTN ATION SER ATION SER AREA/OTH SYS NONEMERG A0120 FEDERATED FEDERATED TRNSPRT: 5 [facility] TRANSPORT TRANSPORT MTN ATION SER ATION SER AREA/[place] [address] [facility] THYROID 5 DIAGNOSTI DIAGNOSTI STIMULATI CS CS NG HORMONE TSH NONEMERG A0120 FEDERATED FEDERATED TRNSPRT: 5 [facility]I-BUS TRANSPORT TRANSPORT MTN ATION SER ATION SER AREA/OTH SYS DEBRIDEME 42298 YOON KARRIE NT 5 KERI KERI MASTOIDEC [...] ATION SER JUSTINE AREA/[place] [address] [facility] THYROID 4 DIAGNOSTI DIAGNOSTI STIMULATI CS CS NG HORMONE TSH NONEMERG A0120 FEDERATED FEDERATED TRNSPRT: 4 TRANS MINI-BUS TRANSPORT SERVBLUEG MTN ATION SER JUSTINE AREA/OTH SYS LEVEL III 90555 [facility] SOLE PATHOLOGY GROSS&TANI ROSCOPIC EXAM INJECTION S0077 CAYETANO MONTEIRO 4 [facility] CLINDAMYC INC INC IN PHOSPHATE [address] [facility] A 4 ANESTH SHE EXTERNAL OF THE MIDDLE & BLUE INNER EAR W/BX NOS ECG 24805 CAYETANO AUDIE JR ROUTINE 4 [facility] W/LEAST P 12 LDS I&R ONLY BLOOD 30637 CAYETANO MONTEIRO COUNT 4 [facility] COMPLETE INC INC AUTO&AUTO DIFRNTL WBC DEBRIDEME 93891 YOONANALILIA YOON NT 4 KERI KERI MASTOIDEC [facility] CMPLX BASIC 32278 CAYETANO MONTEIRO METABOLIC 4 [facility] PANEL [place] [address] CAYETANO MONTEIRO XTRNL 4 [facility] AUDITORY INC INC CANAL ANES TYMPANOST 20161 CAYETANO MONTEIRO TAISHA 4 [facility] GENERAL INC INC ANESTHESI A NONEMERG A0120 FEDERATED FEDERATED TRNSPRT: 4 TRANS MINI-BUS TRANSPORT SERVBLUEG FLN ATFORMERLY [facility] SER JUSTINE AREA/OTH SYS NONEMERG A0120 FEDERATED FEDERATED TRNSPRT: 4 TRANS MINI-BUS TRANSPORT SERVBLUEG MTN ATFORMERLY [facility], [facility] SER JUSTINE AREA/OTH SYS DEBRIDEME 66553 KARRIE YOON NT 4 KERI KERI MASTOIDEC [facility] SIMPLE BLOOD 60552 FLORENTINO MARTY FLORENTINO MARTY COUNT 4 COMPLETE AUTO&AUTO DIFRNTL WBC NONEMERG A0120 FEDERATED FEDERATED TRNSPRT: 4 TRANS MINI-BUS TRANSPORT SERVBLUEG FLN ATFORMERLY [facility], [facility] SER JUSTINE AREA/OTH SYS COMPREHEN 78971 [facility] SIVE 4 DIAGNOSTI DIAGNOSTI METABOLIC CS CS PANEL NONEMERG A0120 FEDERATED FEDERATED TRNSPRT: 4 TRANS MINI-BUS TRANSPORT SERVBLUEG MTN ATFORMERLY [facility], [facility] SER JUSTINE AREA/OTH SYS DEBRIDEME 92752 KARRIE YOON NT 4 KERI KERI MASTOIDEC [facility] SIMPLE ECG 89565 FLORENTINO MARTY FLORENTINO MARTY ROUTINE 4 ECG W/LEAST 12 LDS W/I&R NONEMERG A0120 FEDERATED FEDERATED TRNSPRT: 4 TRANS MINI-BUS TRANSPORT SERVBLUEG MTN ATFORMERLY [facility] SER JUSTINE AREA/OTH SYS NONEMERG A0120 FEDERATED FEDERATED TRNSPRT: 4 TRANS MINI-BUS TRANSPORT SERVBLUEG MTN ATION SER JUSTINE AREA/OTH SYS DEBRIDEME 46797 KARRIE YOON NT 4 KERI KERI MASTOIDEC [facility] SIMPLE OPHTH 34702 [facility] 4 ANG ANG XM&EVAL COMPRHNSV ESTAB PT 1/> NONEMERG A0120 FEDERATED FEDERATED TRNSPRT: 4 TRANS MINI-BUS TRANSPORT SERVBLUEG MTN ATION SER JUSTINE AREA/OTH SYS NONEMERG A0120 FEDERATED FEDERATED TRNSPRT: 4 MINI-BUS TRANSPORT TRANSPORT MTN ATION SER ATION SER AREA/OTH SYS NONEMERG A0120 FEDERATED FEDERATED TRNSPRT: 4 MINI-BUS TRANSPORT TRANSPORT MTN ATION SER ATION SER AREA/OTH SYS COMPUTER- 79530 CAYETANO MONTEIRO AIDED 4 [facility] DETECTION INC INC SCREENING MAMMOGRAP HY SCREENING G0202 CAYETANO MONTEIRO 4 [facility] MAMMOGRAP INC INC HY KEVIN INCL CAD WHEN PERFORMD BLOOD 84564 FLORENTINO MARTY FLORENTINO MARTY COUNT 4 COMPLETE AUTO&[place] [address] [facility] THYROID 4 DIAGNOSTI DIAGNOSTI STIMULATI [...] ATION SER ATION SER AREA/OTH SYS DEBRIDEME 91329 KARRIE YOON NT 3 KERI KERI MASTOIDEC [facility] CAV[facility] SIMPLE NONEMERG A0120 FEDERATED FEDERATED TRNSPRT: 3 MINI-BUS TRANSPORT TRANSPORT MTN ATION SER ATION SER AREA/OTH SYS NONEMERG A0120 FEDERATED FEDERATED TRNSPRT: 3 MINI-BUS TRANSPORT TRANSPORT MTN ATION SER ATION SER AREA/OTH SYS DEBRIDEME 79488 KARRIE YOON NT 3 KERI KERI MASTOIDEC JUANCHO CAVITY SIMPLE NONEMERG A0120 FEDERATED FEDERATED TRNSPRT: 3 MINI-BUS TRANSPORT TRANSPORT MTN ATION SER ATION SER AREA/OTH SYS NONEMERG A0120 LKLP CAC LKLP CAC TRNSPRT: 3 INC INC MINI-BUS REGION 11 REGION 11 [facility] AREA/OTH SYS COLLECTIO 30527 [place] MARTY N VENOUS 3 NANCY FIELDS [place] [address] [facility] THYROID 3 DIAGNOSTI DIAGNOSTI STIMULATI CS CS NG HORMONE TSH BASIC 29945 [facility] METABOLIC 3 DIAGNOSTI DIAGNOSTI PANEL CS CS CALCIUM TOTAL LIPID 81061 [place] MARTY PANEL 3 NANCY FIELDS PSC GLUCOSE 36551 [place] MARTY QUANTITAT 3 NANCY FIELDS BROOKLYNN BLOOD PSC XCPT REAGENT STRIP DIRECT G0154 [facility] SKILL 3 [facility] AGENCY AGENCY HH/HOSPIC E EA 15 MIN QUANTITAT 94101 CAYETANO MONTEIRO ION DRUG 3 [facility] NOT INC INC ELSEWHERE SPECIFIED DIRECT G0154 [facility] SKILL 3 HOME [facility] AGENCY AGENCY HH/HOSPIC E EA 15 MIN NONEMERG A0120 LKLP CAC LKLP CAC TRNSPRT: 3 INC INC MINI-BUS REGION 11 REGION 11 FLN AREA/OTH SYS AMBULANCE A0429 [facility] SERVICE 3 AMBULANCE AMBULANCE BLS SERVICE SERVICE EMERGENCY TRAN[facility]ORT GROUND A0425 [facility] [place] [address] CAYETANO MONTEIRO THYROID 3 [facility] STIMULATI [place] [address] CAYETANO MONTEIRO FREE 3 [facility] THYROXINE INC INC US SOFT 36527 CAYETANO MONTEIRO TISSUE 3 [facility] HEAD & INC INC NECK REAL TIME IMGE DOCM URNLS DIP 81904 LATONYA HANKS 3 DON DON STICK/TAB LET RGNT NON-AUTO W/O MICRSCP COMPUTER- 48666 MEM[facility] MEME AIDED 3 YAZ YAZ DETECTION SCREENING MAMMOGRAP HY SCREENING G0202 CAYETANO MONTEIRO 3 [facility] MAMMOGRAP INC INC HY KEVIN INCL CAD WHEN PERFORMD LIPID 64051 CAYETANO MONTEIRO PANEL 3 [place] [address] CAYETANO MONTEIRO THYROID 3 [facility] STIMULATI INC INC NG HORMONE TSH NONEMERG A0120 LKLP LKLP TRNSPRT: 3 [facility] COMM[facility]ITY MINI-BUS ACTION ACTION MTN AREA/OTH SYS COMPREHEN 57315 CAYETANO MONTEIRO SIVE 3 [facility] METABOLIC INC INC PANEL DRUG 93313 CAYETANO MONTEIRO SCREEN 3 [facility] QUANTITAT INC INC BROOKLYNN PHENYTOIN TOTAL CYTP 00118 [facility] SLIDES 3 DIAGNOSTI DIAGNOSTI CERV/VAG [...] AGENCY HH/HOSPIC E EA 15 MIN RADIOLOGI 29359 [place] [facility] C 2 MEDICAL YAZ EXAMINATI IMAGING ON PELVIS ASS 1/2 VIEWS RADEX HIP 80737 [place] [facility] 2 MEDICAL YAZ UNILATERA IMAGING L ASS COMPLETE MINIMUM 2 VIEWS GROUND A0425 [facility] MILEAGE 2 AMBULANCE AMBULANCE PER SERVICE SERVICE STATUTE MILE AMBULANCE A0429 [facility] SERVICE 2 AMBULANCE AMBULANCE BLS SERVICE SERVICE EMERGENCY TRANSPORT RADEX HIP 66268 CAYETANO MONTEIRO 2 [facility] UNILATERA INC INC L COMPLETE MINIMUM 2 VIEWS RADEX 63871 [place] [facility] HIPS 2 MEDICAL YAZ BILATERAL IMAGING 2 VIEWS ASS ANTEROPOS T PELVIS RADIOLOGI 84675 CAYETANO MONTEIRO C 2 [facility] EXAMINATI INC INC ON PELVIS 1/2 VIEWS RADEX 35984 [place] [facility] SPINE 2 MEDICAL YAZ LUMBOSACR IMAGING AL ASS MINIMUM 4 VIEWS RADEX 08686 LATONYA HANKS SHOULDER 2 DON DON COMPLETE MINIMUM 2 VIEWS NONEMERG A0120 [facility] TRNSPRT: 2 [facility] MINI-BUS ACTION ACTION [facility]/OTH SYS INCISION 57487 LATONYA HANKS THROMBOSE 2 DON DON D HEMORRHOI D EXTERNAL COMPREHEN 63546 CAYETANO MONTEIRO SIVE 2 [facility] METABOLIC INC INC PANEL NONEMERG A0120 [facility] TRNSPRT: 2 [facility] MINI-BUS ACTION ACTION [facility]/OT SYS NONEMERG A0120 [facility] TRNSPRT: 2 [facility] MINI-BUS ACTION ACTION [facility] SYS DESTRUCTI 94134 LATONYA HANKS ON 2 DON DON PREMALIGN ANT LESION 1ST NONEMERG A0120 LKLP LKLP TRNSPRT: 2 [facility] MINI-BUS ACTION ACTION MTN AREA/OTH SYS NONEMERG A0120 LKLP LKLP TRNSPRT: 2 [facility] MINI-BUS ACTION ACTION FLN AREA/OTH SYS COMPREHEN 34818 CAYETANO MONTEIRO SIVE 2 [facility] METABOLIC INC INC PANEL DRUG 83620 CAYETANO AVERYON SCREEN 2 [facility] QUANTITAT INC INC BROOKLYNN PHENYTOIN TOTAL LIPID 39639 CAYETANO AVERYON PANEL 2 [facility] [place] [address] CAYETANO MONTEIRO THYROID 2 [facility] STIMULATI INC INC NG HORMONE TSH COMPUTER- 95845 [facility] AIDED 2 MEDICAL YAZ DETECTION IMAGING ASS SCREENING MAMMOGRAP HY SCREENING G0202 [place] [address] MEDICAL YAZ MAMMOGRAP IMAGING HY KEVIN ASS [...] HOME HLTH/HOSP ICE EA 15 MIN OPHTH 23804 [facility] VISION ANG XM&EVAL COMPRHNSV ESTAB PT 1/> [place] [address] CAYETANO MONTEIRO THYROID 1 [facility] STIMULATI INC INC NG HORMONE TSH COMPREHEN 19749 CAYETANO MONTEIRO SIVE 1 [facility] METABOLIC INC INC PANEL DRUG 95995 CAYETANO AVERYON SCREEN 1 [facility] QUANTITAT INC INC BROOKLYNN PHENYTOIN TOTAL LIPID 55773 CAYETANO AVERYON PANEL 1 [facility] INC INC BLOOD 31179 CAYETANO MONTEIRO COUNT 1 [facility] COMPLETE INC INC AUTO&AUTO DIFRNTL WBC COMPREHEN 17112 CAYETANO MONTEIRO SIVE 1 [facility] METABOLIC INC INC PANEL QUANTITAT 27615 CAYETANO MONTEIRO ION DRUG 1 [facility] NOT INC INC ELSEWHERE SPECIFIED SELF-CARE 39378 SUPPORT SUPPORT /HOME 1 SOURCE SOURCE MGMT TRAINING EACH 15 MINUTES SELF-CARE 47162 SUPPORT SUPPORT /HOME 1 SOURCE SOURCE MGMT TRAINING EACH 15 MINUTES SELF-CARE 28955 SUPPORT SUPPORT /HOME 1 SOURCE SOURCE MGMT TRAINING EACH 15 MINUTES SELF-CARE 54250 SUPPORT SUPPORT /HOME 1 SOURCE SOURCE MGMT TRAINING EACH 15 MINUTES SELF-CARE 14509 SUPPORT SUPPORT /HOME 1 SOURCE SOURCE MGMT TRAINING EACH 15 MINUTES SELF-CARE 10827 SUPPORT SUPPORT /HOME 1 SOURCE SOURCE MGMT TRAINING EACH 15 MINUTES SELF-CARE 44743 SUPPORT SUPPORT /HOME 1 SOURCE SOURCE MGMT TRAINING EACH 15 MINUTES SELF-CARE 60426 SUPPORT SUPPORT /HOME 1 SOURCE SOURCE MGMT TRAINING EACH 15 MINUTES SELF-CARE 02098 SUPPORT SUPPORT /HOME 1 SOURCE SOURCE MGMT TRAINING EACH 15 MINUTES SELF-CARE 69758 SUPPORT SUPPORT /HOME 1 SOURCE SOURCE MGMT TRAINING EACH 15 MINUTES SELF-CARE 96849 SUPPORT SUPPORT /HOME 1 SOURCE SOURCE MGMT TRAINING EACH 15 MINUTES QUANTITAT 56721 CAYETANO MONTEIRO ION DRUG 1 [facility] NOT INC INC ELSEWHERE SPECIFIED BLOOD 09517 CAYETANO MONTEIRO COUNT 1 [facility] COMPLETE INC INC AUTO&AUTO DIFRNTL WBC OBSERVATI 21298 FAMILY MULBERRY ON CARE 1 CARE HARRY DISCHARGE ASSOCIATE S MANAGEMEN T BASIC 64921 CAYETANO AVERYON METABOLIC 1 [facility] MEM [...] DISPOSABL SERVICE SERVICE E SUPPLIES URNLS DIP 94474 CAYETANO MONTEIRO 1 [facility] STICK/TAB INC [place] [address] CAYETANO MONTEIRO INFUSION 1 [facility] THERAPY INC INC PROPHYLAX IS/[place] [address] CAYETANO MONTEIRO LIPASE 1 [facility] INC INC BLOOD 97218 CAYETANO MONTEIRO COUNT 1 [facility] COMPLETE INC INC AUTO&[place] [address] CAYETANO MONTEIRO INFUSION 1 [facility] THERAPY/P INC INC ROPHYLAXI S /DX 1ST TO 1 [place] [address] CAYETANO MONTEIRO AMYLASE 1 [facility] INC INC AMB A0427 [facility] 1 AMBULANCE AMBULANCE ALS SERVICE SERVICE EMERGENCY TRANSPORT LEVEL 1 QUANTITAT 82025 CAYETANO MONTEIRO ION DRUG 1 [facility] NOT INC INC ELSEWHERE SPECIFIED INITIAL 88861 FAMILY MULBERRY OBSERVATI 1 CARE HARRY ON ASSOCIATE CARE/DAY S 50 MINUTES COMPREHEN 49933 CAYETANO MONTEIRO SIVE 1 [facility] [address] CAYETANO MONTEIRO STREPTOCO 1 [facility] CCUS INC INC GROUP A COMPREHEN 85395 CAYETANO MONTEIRO SIVE 1 [facility] [address] CAYETANO MONTEIRO AMYLASE 1 [facility] INC INC CREATINE 31244 CAYETANO MONTEIRO KINASE MB 1 [facility] [place] [address] CAYETANO MONTEIRO INFUSION 1 [facility] THERAPY/P INC INC ROPHYLAXI S /DX 1ST TO 1 HR BLOOD 58874 CAYETANO MONTEIRO COUNT 1 [facility] COMPLETE INC INC AUTO&[place] [address] CAYETANO MONTEIRO TROPONIN 1 [facility] [place] [address] CAYETANO MONTEIRO LIPASE 1 [facility] INC INC CREATINE 55862 CAYETANO CAYETANO KINASE 1 [place] [address] [facility] VAL[facility] HEAD/BRAI 1 MEDICAL YAZ N W/O IMAGING CONTRAST ASS MATERIAL RADIOLOGI 71444 [facility] C 1 MEDICAL YAZ EXAMINATI IMAGING ON CHEST ASS SINGLE VIEW FRONTAL 3D 34736 [facility] RENDERING 1 MEDICAL YAZ W/INTERP IMAGING & [place] [address] CAYETANO MONTEIRO INFUSION 1 [facility] THERAPY INC INC PROPHYLAX IS/DX EA HOUR BLOOD 11742 CAYETANOANALILIA MONTEIRO COUNT 1 [facility] COMPLETE INC INC AUTO&AUTO DIFRNTL WBC COMPREHEN 44739 CAYETANOANALILIA MONTEIRO SIVE 1 [facility] METABOLIC INC INC PANEL QUANTITAT 61159 CAYETANO MONTEIRO ION DRUG 1 [facility] NOT INC INC ELSEWHERE SPECIFIED SELF-CARE 00315 SUPPORT SUPPORT /HOME 1 SOURCE SOURCE MGMT TRAINING EACH 15 MINUTES SELF-CARE 43449 SUPPORT SUPPORT /HOME 1 SOURCE SOURCE MGMT TRAINING EACH 15 MINUTES SELF-CARE 96800 SUPPORT SUPPORT /HOME 1 SOURCE SOURCE MGMT TRAINING EACH 15 MINUTES SELF-CARE 61858 SUPPORT SUPPORT /HOME 1 SOURCE SOURCE MGMT TRAINING EACH 15 MINUTES COMPREHEN 98226 CAYETANO AVERYON SIVE 1 [facility] METABOLIC INC INC PANEL BLOOD 79875 CAYETANO MONTEIRO COUNT 1 [facility] COMPLETE INC INC AUTO&AUTO DIFRNTL WBC DRUG 23936 CAYETANO MONTEIRO SCREEN 1 [facility] QUANTITAT INC INC BROOKLYNN PHENYTOIN TOTAL LIPID 35065 CAYETANO MONTEIRO PANEL 1 [place] [address] CAYETANO MONTEIRO THYROID 1 [facility] STIMULATI INC INC NG HORMONE TSH COMPUTER- 21400 [facility] AIDED 1 MEDICAL YAZ DETECTION IMAGING ASS SCREENING MAMMOGRAP HY SCREENING G0202 [facility] 1 MEDICAL YAZ MAMMOGRAP IMAGING HY KEVIN ASS INCL CAD WHEN PERFORMD DEBRIDEME 87632 KARRIE YOON NT 1 KERI KERI MASTOIDEC JUANCHO CAVITY SIMPLE BASIC 51876 CAYETANO MONTEIRO METABOLIC 1 [facility] PANEL INC INC CALCIUM TOTAL BLOOD 02913 CAYETANO MONTEIRO COUNT 1 [facility] COMPLETE INC INC AUTO&AUTO DIFRNTL WBC DRUG 90947 CAYETANO MONTEIRO SCREEN 1 [facility] QUANTITAT INC INC BROOKLYNN PHENYTOIN TOTAL AMBULANCE A0429 [facility] SERVICE 1 AMBULANCE AMBULANCE BLS SERVICE SERVICE EMERGENCY TRANSPORT GROUND A0425 [facility] PER SERVICE SERVICE STATUTE MILE DRUG 77603 CAYETANO MONTEIRO SCREEN 1 [facility] QUANTITAT INC [place] [address] CAYETANO MONTEIRO THYROID 1 [facility] STIMULATI INC INC NG HORMONE TSH SELF-CARE 90867 SUPPORT SUPPORT /HOME 0 SOURCE SOURCE MGMT TRAINING EACH 15 MINUTES SELF-CARE 95302 SUPPORT SUPPORT /HOME 0 SOURCE SOURCE MGMT TRAINING EACH 15 MINUTES SELF-CARE 18392 SUPPORT SUPPORT /HOME 0 SOURCE SOURCE MGMT TRAINING EACH 15 MINUTES SELF-CARE 99587 SUPPORT SUPPORT /HOME 0 SOURCE SOURCE MGMT TRAINING EACH 15 MINUTES SELF-CARE 92708 SUPPORT SUPPORT /HOME 0 SOURCE SOURCE MGMT TRAINING EACH 15 MINUTES DEBRIDEME 86074 KARRIE LIMON NT 0 KERI KERI MASTOIDEC JU[place] CAVITY SIMPLE SELF-CARE 33879 SUPPORT SUPPORT /HOME 0 SOURCE SOURCE MGMT TRAINING EACH 15 MINUTES SELF-CARE 44325 SUPPORT SUPPORT /HOME 0 SOURCE SOURCE MGMT TRAINING EACH 15 MINUTES SELF-CARE 23459 SUPPORT SUPPORT /HOME 0 SOURCE SOURCE MGMT TRAINING EACH 15 MINUTES SELF-CARE 79067 SUPPORT SUPPORT /HOME 0 SOURCE SOURCE MGMT TRAINING EACH 15 MINUTES SELF-CARE 46221 SUPPORT SUPPORT /HOME 0 SOURCE SOURCE MGMT TRAINING EACH 15 MINUTES DRUG 37675 [facility] S[facility]EN 0 [facility] QUANTITAT [facility] INC BROOK[place]NN PHENYTOIN TOTAL 3D 86271 CA[facility] AVERYON RENDERING 0 [facility] W/INTERP INC INC & [place] [address] CARLOS VALENTINE HEAD/BRAI 0 MEDICAL YAZ N W/O IMAGING CONTRAST ASS MATERIAL BASIC 62754 CA[facility]AN[facility] METABOLIC 0 [facility] PANEL INC INC CALCIUM TOTAL BLOOD 85904 CA[facility]ETANO MONTEIRO COUNT 0 [facility] COMPLETE INC INC AUTO&AUTO DIFRNTL WBC SELF-CARE 55366 SUPPORT SUPPORT /HOME 0 SOURCE SOURCE MGMT TRAINING EACH 15 MINUTES SELF-CARE 29076 SUPPORT SUPPORT /HOME 0 SOURCE SOURCE MGMT TRAINING EACH 15 MINUTES SELF-CARE 73801 SUPPORT SUPPORT /HOME 0 SOURCE SOURCE MGMT TRAINING EACH 15 MINUTES SELF-CARE 87542 SUPPORT SUPPORT /HOME 0 SOURCE SOURCE MGMT TRAINING EACH 15 MINUTES SELF-CARE 29970 SUPPORT SUPPORT /HOME 0 SOURCE SOURCE MGMT TRAINING EACH 15 MINUTES SELF-CARE 23199 SUPPORT SUPPORT /HOME 0 SOURCE SOURCE MGMT TRAINING EACH 15 MINUTES SELF-CARE 14297 SUPPORT SUPPORT /HOME 0 SOURCE SOURCE MGMT TRAINING EACH 15 MINUTES SELF-CARE 13109 SUPPORT SUPPORT /HOME 0 SOURCE SOURCE MGMT TRAINING EACH 15 MINUTES SELF-CARE 23223 SUPPORT SUPPORT /HOME 0 SOURCE SOURCE MGMT TRAINING EACH 15 MINUTES SELF-CARE 16982 SUPPORT SUPPORT /HOME 0 SOURCE SOURCE MGMT TRAINING EACH 15 MINUTES SELF-CARE 67505 SUPPORT SUPPORT /HOME 0 SOURCE SOURCE MGMT TRAINING EACH 15 MINUTES SELF-CARE 83907 SUPPORT SUPPORT /HOME 0 SOURCE SOURCE MGMT TRAINING EACH 15 MINUTES SELF-CARE 43504 SUPPORT SUPPORT /HOME 0 SOURCE SOURCE MGMT TRAINING EACH 15 MINUTES SELF-CARE 09873 SUPPORT SUPPORT /HOME 0 SOURCE SOURCE MGMT TRAINING EACH 15 MINUTES SELF-CARE 69703 SUPPORT SUPPORT /HOME 0 SOURCE SOURCE MGMT TRAINING EACH 15 MINUTES MICROSURG 60926 KARRIE YOON TQS REQ 0 KERI KERI USE OPERATING MICROSCOP E DEBRIDEME 37749 KARRIE YOON NT 0 KERI KERI MASTOIDEC J[place] CAVITY SIMPLE SELF-CARE 29180 SUPPORT SUPPORT /HOME 0 SOURCE SOURCE MGMT TRAINING EACH 15 MINUTES SELF-CARE 50752 SUPPORT SUPPORT /HOME 0 SOURCE SOURCE MGMT TRAINING EACH 15 MINUTES SELF-CARE 72330 SUPPORT SUPPORT /HOME 0 SOURCE SOURCE MGMT TRAINING EACH 15 MINUTES SELF-CARE 97354 SUPPORT SUPPORT /HOME 0 SOURCE SOURCE MGMT TRAINING EACH 15 MINUTES SELF-CARE 75711 SUPPORT SUPPORT /HOME 0 SOURCE SOURCE MGMT TRAINING EACH 15 MINUTES SELF-CARE 12238 SUPPORT SUPPORT /HOME 0 SOURCE SOURCE MGMT TRAINING EACH 15 MINUTES SELF-CARE 83187 SUPPORT SUPPORT /HOME 0 SOURCE SOURCE MGMT TRAINING EACH 15 MINUTES SELF-CARE 23475 SUPPORT SUPPORT /HOME 0 SOURCE SOURCE MGMT TRAINING [place]ACH [place] [address] CA[facility]ET[facility] THYROID 0 [facility] STIMULATI INC INC NG HORMONE TSH DRUG 40108 CAYETAN[facility] SCREEN 0 [facility] QUANTITAT INC INC BROOK[place]NN PHENYTOIN TOTAL SELF-CARE 05305 SUPPORT SUPPORT /HOME 0 SOURCE SOURCE MGMT TRAINING EACH 15 MINUTES SELF-CARE 12067 SUPPORT SUPPORT /HOME 0 SOURCE SOURCE MGMT TRAINING EACH 15 MINUTES SELF-CARE 20106 SUPPORT SUPPORT /HOME 0 SOURCE SOURCE MGMT TRAINING EACH 15 MINUTES SELF-CARE 32915 SUPPORT SUPPORT /HOME 0 SOURCE SOURCE MGMT TRAINING EACH 15 MINUTES SELF-CARE 86178 SUPPORT SUPPORT /HOME 0 SOURCE SOURCE MGMT TRAINING EACH 15 MINUTES SELF-CARE 43032 SUPPORT SUPPORT /HOME 0 SOURCE SOURCE MGMT TRAINING EACH 15 MINUTES SELF-CARE 21894 SUPPORT SUPPORT /HOME 0 SOURCE SOURCE MGMT TRAINING EACH 15 MINUTES SELF-CARE 62974 SUPPORT SUPPORT /HOME 0 SOURCE SOURCE MGMT TRAINING EACH 15 MINUTES SELF-CARE 46081 SUPPORT SUPPORT /HOME 0 SOURCE SOURCE MGMT TRAINING EACH 15 MINUTES SELF-CARE 84684 SUPPORT SUPPORT /HOME 0 SOURCE SOURCE MGMT TRAINING EACH 15 MINUTES SELF-CARE 04222 SUPPORT SUPPORT /HOME 0 SOURCE SOURCE MGMT TRAINING EACH 15 MINUTES SELF-CARE 45593 SUPPORT SUPPORT /HOME 0 SOURCE SOURCE MGMT TRAINING EACH 15 MINUTES SELF-CARE 34903 SUPPORT SUPPORT /HOME 0 SOURCE SOURCE MGMT TRAINING EACH 15 MINUTES SELF-CARE 39819 SUPPORT SUPPORT /HOME 0 SOURCE SOURCE MGMT TRAINING EACH 15 MINUTES SELF-CARE 78576 SUPPORT SUPPORT /HOME 0 SOURCE SOURCE MGMT TRAINING EACH 15 MINUTES SELF-CARE 58466 SUPPORT SUPPORT /HOME 0 SOURCE SOURCE MGMT TRAINING EACH 15 MINUTES SELF-CARE 72008 SUPPORT SUPPORT /HOME 0 SOURCE SOURCE MGMT TRAINING EACH 15 MINUTES DRUG 02247 [facility] QUANTITAT INC INC BROOK[place]NN PHENYTOIN TOTAL AMBULANCE A0429 [facility] SERVICE 0 AMBULANCE AMBULANCE BLS SERVICE SERVICE EMERGENCY TRANSPORT GROUND A0425 [facility] MILEAGE 0 AMBULANCE AMBULANCE PER SERVICE SERVICE STATUTE MILE SELF-CARE 09794 SUPPORT SUPPORT /HOME 0 SOURCE SOURCE MGMT TRAINING EACH 15 MINUTES SELF-CARE 16509 SUPPORT SUPPORT /HOME 0 SOURCE SOURCE MGMT TRAINING EACH 15 MINUTES SELF-CARE 13686 SUPPORT SUPPORT /HOME 0 SOURCE SOURCE MGMT TRAINING EACH 15 MINUTES SELF-CARE 04703 SUPPORT SUPPORT /HOME 0 SOURCE SOURCE MGMT TRAINING EACH 15 MINUTES SELF-CARE 07890 SUPPORT SUPPORT /HOME 0 SOURCE SOURCE MGMT TRAINING EACH 15 MINUTES SELF-CARE 98718 SUPPORT SUPPORT /HOME 0 SOURCE SOURCE MGMT TRAINING EACH 15 MINUTES SELF-CARE 28748 SUPPORT SUPPORT /HOME 0 SOURCE SOURCE MGMT TRAINING EACH 15 MINUTES SELF-CARE 63482 SUPPORT SUPPORT /HOME 0 SOURCE SOURCE MGMT TRAINING EACH 15 MINUTES SELF-CARE 35872 SUPPORT SUPPORT /HOME 0 SOURCE SOURCE MGMT TRAINING EACH 15 MINUTES SELF-CARE 94014 SUPPORT SUPPORT /HOME 0 SOURCE SOURCE MGMT TRAINING EACH 15 MINUTES SELF-CARE 05058 SUPPORT SUPPORT /HOME 0 SOURCE SOURCE MGMT TRAINING EACH 15 MINUTES SELF-CARE 14366 SUPPORT SUPPORT /HOME 0 SOURCE SOURCE MGMT TRAINING EACH 15 MINUTES SELF-CARE 63878 SUPPORT SUPPORT /HOME 0 SOURCE SOURCE MGMT TRAINING EACH 15 MINUTES SELF-CARE 06200 SUPPORT SUPPORT /HOME 0 SOURCE SOURCE MGMT TRAINING EACH 15 MINUTES SELF-CARE 79429 SUPPORT SUPPORT /HOME 0 SOURCE SOURCE MGMT TRAINING EACH 15 MINUTES SELF-CARE 05953 SUPPORT SUPPORT /HOME 0 SOURCE SOURCE MGMT TRAINING EACH 15 MINUTES SELF-CARE 38533 SUPPORT SUPPORT /HOME 0 SOURCE SOURCE MGMT TRAINING EACH 15 MINUTES SELF-CARE 80101 SUPPORT SUPPORT /HOME 0 SOURCE SOURCE MGMT TRAINING EACH 15 MINUTES SELF-CARE 08322 SUPPORT SUPPORT /HOME 0 SOURCE SOURCE MGMT TRAINING EACH 15 MINUTES SELF-CARE 24501 SUPPORT SUPPORT /HOME 0 SOURCE SOURCE MGMT TRAINING EACH 15 MINUTES SELF-CARE 91271 SUPPORT SUPPORT /HOME 0 SOURCE SOURCE MGMT TRAINING EACH 15 MINUTES SELF-CARE 42100 SUPPORT SUPPORT /HOME 0 SOURCE SOURCE MGMT TRAINING EACH 15 MINUTES SELF-CARE 92485 SUPPORT SUPPORT /HOME 0 SOURCE SOURCE MGMT TRAINING EACH 15 MINUTES SELF-CARE 61649 SUPPORT SUPPORT /HOME 0 SOURCE SOURCE MGMT TRAINING EACH 15 MINUTES SELF-CARE 65890 SUPPORT SUPPORT /HOME 0 SOURCE SOURCE MGMT TRAINING EACH 15 MINUTES SELF-CARE 99611 SUPPORT SUPPORT /HOME 0 SOURCE SOURCE MGMT TRAINING EACH 15 MINUTES SELF-CARE 94675 SUPPORT SUPPORT /HOME 0 SOURCE SOURCE MGMT TRAINING EACH 15 MINUTES SELF-CARE 44445 SUPPORT SUPPORT /HOME 0 SOURCE SOURCE MGMT TRAINING EACH 15 MINUTES SELF-CARE 73246 SUPPORT SUPPORT /HOME 0 SOURCE SOURCE MGMT TRAINING EACH 15 MINUTES SELF-CARE 98997 SUPPORT SUPPORT /HOME 0 SOURCE SOURCE MGMT TRAINING EACH 15 MINUTES SELF-CARE 74404 SUPPORT SUPPORT /HOME 0 SOURCE SOURCE MGMT TRAINING EACH 15 MINUTES SELF-CARE 69326 SUPPORT SUPPORT /HOME 0 SOURCE SOURCE MGMT TRAINING EACH 15 MINUTES SELF-CARE 68806 SUPPORT SUPPORT /HOME 0 SOURCE SOURCE MGMT TRAINING EACH 15 MINUTES SELF-CARE 33169 SUPPORT SUPPORT /HOME 0 SOURCE SOURCE MGMT TRAINING EACH 15 MINUTES SELF-CARE 28419 SUPPORT SUPPORT /HOME 0 SOURCE SOURCE MGMT TRAINING EACH 15 MINUTES SELF-CARE 18620 SUPPORT SUPPORT /HOME 0 SOURCE SOURCE MGMT TRAINING EACH 15 MINUTES SELF-CARE 23139 SUPPORT SUPPORT /HOME 0 SOURCE SOURCE MGMT TRAINING EACH 15 MINUTES SELF-CARE 67296 SUPPORT SUPPORT /HOME 0 SOURCE SOURCE MGMT TRAINING EACH 15 MINUTES SELF-CARE 40350 SUPPORT SUPPORT /HOME 0 SOURCE SOURCE MGMT TRAINING EACH 15 MINUTES DRUG 65734 CA[facility]EN [facility] QUANTITAT INC [place] [address] CAYET[facility]O [facility]TEIR[facility] THYROID 0 [facility] STIMULATI INC INC NG HORMONE TSH COMPREHEN 31546 CAYETANO [facility] SIVE 0 [facility] METABOLIC INC INC PANEL BLOOD 55488 CAYETANO MONTEIRO COUNT 0 [facility] COMPLETE INC INC AUTO&AUTO DIFRNTL WBC SELF-CARE 14194 SUPPORT SUPPORT /HOME 0 SOURCE SOURCE MGMT TRAINING EACH 15 MINUTES SELF-CARE 91140 SUPPORT SUPPORT /HOME 0 SOURCE SOURCE MGMT TRAINING EACH 15 MINUTES SELF-CARE 49468 SUPPORT SUPPORT /HOME 0 SOURCE SOURCE MGMT TRAINING EACH 15 MINUTES DEBRIDEME 70932 KARRIE YOON, NT 0 KRISTI G KRISTI G MASTOIDEC JUANCHO CAVITY SIMPLE SELF-CARE 09763 SUPPORT SUPPORT /HOME 0 SOURCE SOURCE MGMT TRAINING EACH 15 MINUTES SELF-CARE 69157 SUPPORT SUPPORT /HOME 0 SOURCE SOURCE MGMT TRAINING EACH 15 MINUTES SELF-CARE 32331 SUPPORT SUPPORT /HOME 0 SOURCE SOURCE MGMT TRAINING EACH 15 MINUTES SELF-CARE 37006 SUPPORT SUPPORT /HOME 0 SOURCE SOURCE MGMT TRAINING EACH 15 MINUTES SELF-CARE 89625 SUPPORT SUPPORT /HOME 0 SOURCE SOURCE MGMT TRAINING EACH 15 MINUTES SELF-CARE 17370 SUPPORT SUPPORT /HOME 0 SOURCE SOURCE MGMT TRAINING EACH 15 MINUTES SELF-CARE 20427 SUPPORT SUPPORT /HOME 0 SOURCE SOURCE MGMT TRAINING EACH 15 MINUTES SELF-CARE 13484 SUPPORT SUPPORT /HOME 0 SOURCE SOURCE MGMT TRAINING EACH 15 MINUTES SELF-CARE 69865 SUPPORT SUPPORT /HOME 0 SOURCE SOURCE MGMT TRAINING EACH 15 MINUTES SELF-CARE 90691 SUPPORT SUPPORT /HOME 0 SOURCE SOURCE MGMT TRAINING EACH 15 MINUTES SELF-CARE 05826 SUPPORT SUPPORT /HOME 0 SOURCE SOURCE MGMT TRAINING EACH 15 MINUTES SELF-CARE 46209 SUPPORT SUPPORT /HOME 0 SOURCE SOURCE MGMT TRAINING EACH 15 MINUTES SELF-CARE 28694 SUPPORT SUPPORT /HOME 0 SOURCE SOURCE MGMT TRAINING EACH 15 MINUTES SELF-CARE 13198 SUPPORT SUPPORT /HOME 0 SOURCE SOURCE MGMT TRAINING EACH 15 MINUTES SELF-CARE 49435 SUPPORT SUPPORT /HOME 0 SOURCE SOURCE MGMT TRAINING EACH 15 MINUTES SELF-CARE 61959 SUPPORT SUPPORT /HOME 0 SOURCE SOURCE MGMT TRAINING EACH 15 MINUTES SELF-CARE 73833 SUPPORT SUPPORT /HOME 0 SOURCE SOURCE MGMT TRAINING EACH 15 MINUTES SELF-CARE 69186 SUPPORT SUPPORT /HOME 0 SOURCE SOURCE MGMT TRAINING EACH 15 MINUTES SELF-CARE 31394 SUPPORT SUPPORT /HOME 0 SOURCE SOURCE MGMT TRAINING EACH 15 MINUTES SELF-CARE 94391 SUPPORT SUPPORT /HOME 0 SOURCE SOURCE MGMT TRAINING EACH 15 MINUTES SELF-CARE 93788 SUPPORT SUPPORT /HOME 0 SOURCE SOURCE MGMT TRAINING EACH 15 MINUTES [facility] 92287 GERMAIN HOWARD, MEDICAL 0 VISION MARI[place] A XM&EVAL COMPRHNSV ESTAB PT 1/> SELF-CARE 20499 SUPPORT SUPPORT /HOME 0 SOURCE SOURCE MGMT TRAINING EACH 15 MINUTES SELF-CARE 68612 SUPPORT SUPPORT /HOME 0 SOURCE SOURCE MGMT TRAINING EACH 15 MINUTES SELF-CARE 75097 SUPPORT SUPPORT /HOME 0 SOURCE SOURCE MGMT TRAINING EACH 15 MINUTES SELF-CARE 34833 SUPPORT SUPPORT /HOME 0 SOURCE SOURCE MGMT TRAINING EACH 15 MINUTES SELF-CARE 22927 SUPPORT SUPPORT /HOME 0 SOURCE SOURCE MGMT TRAINING EACH 15 MINUTES SELF-CARE 84187 SUPPORT SUPPORT /HOME 0 SOURCE SOURCE MGMT TRAINING EACH 15 MINUTES SELF-CARE 46570 SUPPORT SUPPORT /HOME 0 SOURCE SOURCE MGMT TRAINING EACH 15 MINUTES SELF-CARE 06623 SUPPORT SUPPORT /HOME 0 SOURCE SOURCE MGMT TRAINING EACH 15 MINUTES SELF-CARE 66907 SUPPORT SUPPORT /HOME 0 SOURCE SOURCE MGMT TRAINING EACH 15 MINUTES SELF-CARE 57747 SUPPORT SUPPORT /HOME 0 SOURCE SOURCE MGMT TRAINING EACH 15 MINUTES SELF-CARE 55848 SUPPORT SUPPORT /HOME 0 SOURCE SOURCE MGMT TRAINING EACH 15 MINUTES SELF-CARE 37378 SUPPORT SUPPORT /HOME 0 SOURCE SOURCE MGMT TRAINING EACH 15 MINUTES COMPRE 18680 KARRIE YOON, AUDIOMETR 0 KRISTI Akhtar Y THRESHOLD EVAL SP RECOGNIJ TYMPANOME 69730 KARRIE YOON, TRY 0 KRISTI Akhtar SELF-CARE 48833 SUPPORT SUPPORT /HOME 0 SOURCE SOURCE MGMT TRAINING EACH 15 MINUTES SELF-CARE 08512 SUPPORT SUPPORT /HOME 0 SOURCE SOURCE MGMT TRAINING EACH 15 MINUTES SELF-CARE 65286 SUPPORT SUPPORT /HOME 0 SOURCE SOURCE MGMT TRAINING EACH 15 MINUTES SELF-CARE 93904 SUPPORT SUPPORT /HOME 0 SOURCE SOURCE MGMT TRAINING EACH 15 MINUTES SELF-CARE 12107 SUPPORT SUPPORT /HOME 0 SOURCE SOURCE MGMT TRAINING EACH 15 MINUTES SELF-CARE 64138 SUPPORT SUPPORT /HOME 0 SOURCE SOURCE MGMT TRAINING EACH 15 MINUTES SELF-CARE 54452 SUPPORT SUPPORT /HOME 0 SOURCE SOURCE MGMT TRAINING EACH 15 MINUTES BLOOD 00926 [facility] COUNT 0 [facility] COMPLETE INC INC AUTO&[place] [address] CAYETANO MONTEIRO FREE 0 [facility] [place] [address] CAYETANO MONTEIR[facility] THYROID 0 [facility] STIMULATI INC INC NG HORMONE TSH SELF-CARE 28819 SUPPORT SUPPORT /HOME 0 SOURCE SOURCE MGMT TRAINING EACH 15 MINUTES SELF-CARE 28805 SUPPORT SUPPORT /HOME 0 SOURCE SOURCE MGMT TRAINING EACH 15 MINUTES SELF-CARE 09699 SUPPORT SUPPORT /HOME 0 SOURCE SOURCE MGMT TRAINING EACH 15 MINUTES SELF-CARE 63112 SUPPORT SUPPORT /HOME 0 SOURCE SOURCE MGMT TRAINING EACH 15 MINUTES SELF-CARE 97185 SUPPORT SUPPORT /HOME 0 SOURCE SOURCE MGMT TRAINING EACH 15 MINUTES SELF-CARE 75315 SUPPORT SUPPORT /HOME 0 SOURCE SOURCE MGMT TRAINING EACH 15 MINUTES SELF-CARE 29784 SUPPORT SUPPORT /HOME 0 SOURCE SOURCE MGMT TRAINING EACH 15 MINUTES SELF-CARE 84431 SUPPORT SUPPORT /HOME 0 SOURCE SOURCE MGMT TRAINING EACH 15 MINUTES SELF-CARE 17822 SUPPORT SUPPORT /HOME 0 SOURCE SOURCE MGMT TRAINING EACH 15 MINUTES 3D 84030 [facility] RENDERING 0 [facility] INC INC W/INTERP& POSTPROC DIFF WORK STATION CT ORBIT 06107 CAYETANO MONTEIRO SELLA/POS 0 [facility] T INC INC FOSSA/EAR W/[place] [address] CAYET[facility] MONTEIR[facility] MAXILLOFA 0 [facility] CIAL W/O INC INC CONTRAST MATERIAL SELF-CARE 33584 SUPPORT SUPPORT /HOME 0 SOURCE SOURCE MGMT TRAINING EACH 15 MINUTES SELF-CARE 05556 SUPPORT SUPPORT /HOME 0 SOURCE SOURCE MGMT TRAINING EACH 15 MINUTES SELF-CARE 05637 SUPPORT SUPPORT /HOME 0 SOURCE SOURCE MGMT TRAINING EACH 15 MINUTES SELF-CARE 25072 SUPPORT SUPPORT /HOME 0 SOURCE SOURCE MGMT TRAINING EACH 15 MINUTES SELF-CARE 74779 SUPPORT SUPPORT /HOME 0 SOURCE SOURCE MGMT TRAINING EACH 15 MINUTES SELF-CARE 76370 SUPPORT SUPPORT /HOME 0 SOURCE SOURCE MGMT TRAINING EACH 15 MINUTES SELF-CARE 79950 SUPPORT SUPPORT /HOME 0 SOURCE SOURCE MGMT TRAINING EACH 15 MINUTES SELF-CARE 33504 SUPPORT SUPPORT /HOME 0 SOURCE SOURCE MGMT TRAINING EACH 15 MINUTES SELF-CARE 81212 SUPPORT SUPPORT /HOME 0 SOURCE SOURCE MGMT TRAINING EACH 15 MINUTES SELF-CARE 35010 SUPPORT SUPPORT /HOME 0 SOURCE SOURCE MGMT TRAINING EACH 15 MINUTES SELF-CARE 52593 SUPPORT SUPPORT /HOME 0 SOURCE SOURCE MGMT TRAINING EACH 15 MINUTES SELF-CARE 74473 SUPPORT SUPPORT /HOME 0 SOURCE SOURCE MGMT TRAINING EACH 15 MINUTES SELF-CARE 83916 SUPPORT SUPPORT /HOME 0 SOURCE SOURCE MGMT TRAINING EACH 15 MINUTES SELF-CARE 07233 SUPPORT SUPPORT /HOME 0 SOURCE SOURCE MGMT TRAINING EACH 15 MINUTES COMPUTER- 55321 [facility] AIDED 0 [facility] DETECTION INC INC SCREENING MAMMOGRAP HY SCREENING 75525 CAYETANO MONTEIRO 0 [facility] MAMMOGRAP INC INC HY BILATERAL BLOOD 69388 HANKS, HANKS, OCCULT 0 DON R DON R PEROXIDAS E ACTV QUAL FECES 1 DETER CYTP 70783 [facility] INC CERV/VAG MNL SCRN PHYSICIAN SUPV SELF-CARE 86328 SUPPORT SUPPORT /HOME 0 SOURCE SOURCE MGMT TRAINING EACH 15 MINUTES SELF-CARE 59592 SUPPORT SUPPORT /HOME 0 SOURCE SOURCE MGMT TRAINING EACH 15 MINUTES SELF-CARE 23938 SUPPORT SUPPORT /HOME 0 SOURCE SOURCE MGMT TRAINING EACH 15 MINUTES SELF-CARE 03642 SUPPORT SUPPORT /HOME 0 SOURCE SOURCE MGMT TRAINING EACH 15 MINUTES SELF-CARE 81294 SUPPORT SUPPORT /HOME 0 SOURCE SOURCE MGMT TRAINING EACH 15 MINUTES SELF-CARE 20876 SUPPORT SUPPORT /HOME 0 SOURCE SOURCE MGMT TRAINING EACH 15 MINUTES SELF-CARE 26447 SUPPORT SUPPORT /HOME 0 SOURCE SOURCE MGMT TRAINING EACH 15 MINUTES SELF-CARE 24522 SUPPORT SUPPORT /HOME 0 SOURCE SOURCE MGMT TRAINING EACH 15 MINUTES SELF-CARE 10530 SUPPORT SUPPORT /HOME 0 SOURCE SOURCE MGMT TRAINING EACH 15 MINUTES SELF-CARE 67760 SUPPORT SUPPORT /HOME 0 SOURCE SOURCE MGMT TRAINING EACH 15 MINUTES SELF-CARE 68750 SUPPORT SUPPORT /HOME 0 SOURCE SOURCE MGMT TRAINING EACH 15 MINUTES SELF-CARE 04414 SUPPORT SUPPORT /HOME 0 SOURCE SOURCE MGMT TRAINING EACH 15 MINUTES SELF-CARE 30856 SUPPORT SUPPORT /HOME 0 SOURCE SOURCE MGMT TRAINING EACH 15 MINUTES SELF-CARE 04167 SUPPORT SUPPORT /HOME 0 SOURCE SOURCE MGMT TRAINING EACH 15 MINUTES SELF-CARE 27064 SUPPORT SUPPORT /HOME 0 SOURCE SOURCE MGMT TRAINING EACH 15 MINUTES SELF-CARE 47554 SUPPORT SUPPORT /HOME 0 SOURCE SOURCE MGMT TRAINING EACH 15 MINUTES SELF-CARE 90166 SUPPORT SUPPORT /HOME 0 SOURCE SOURCE MGMT TRAINING EACH 15 MINUTES SELF-CARE 41920 SUPPORT SUPPORT /HOME 0 SOURCE SOURCE MGMT TRAINING EACH 15 MINUTES [facility] E0601 DEBORAH CABRERA S 0 HOME MED HOME MED POSITIVE EQUIP. EQUIP. [facility] PRESSURE DEVICE SELF-CARE 99763 SUPPORT SUPPORT /HOME 0 SOURCE SOURCE MGMT TRAINING EACH 15 MINUTES SELF-CARE 35704 SUPPORT SUPPORT /HOME 0 SOURCE SOURCE MGMT TRAINING EACH [place] [address] CAYETANO MONTEIRO THYROID 0 [facility] STIMULATI INC INC NG HORMONE TSH DRUG 36083 CAYETANO MONTEIRO SCREEN 0 [facility] QUANTITAT INC INC BROOKLYNN PHENYTOIN TOTAL DRUG 57789 CAYETANO MONTEIR[facility] SCREEN 0 [facility] QUANTITAT INC INC BROOKLYNN PHENYTOIN TOTAL AMB A0427 [facility] SERVICE 0 AMBULANCE AMBULANCE ALS SERVICE SERVICE EMERGENCY TRANSPORT LEVEL 1 BLOOD 07799 CA[facility]O [facility] COUNT 0 [facility] COMPLETE INC INC AUTO&AUTO DIFRNTL WBC CULTURE 24638 CAYET[facility]O MONTEIR[facility] BACTERIAL 0 [facility] INC INC QUANTTATI VE COLONY COUNT URINE CULTURE 48217 CA[facility] MON[facility] BCT 0 [facility] ISOL&PRSM INC INC PTV ID ISOLATE EA URINE URNLS DIP 95671 CAYET[facility]O MONTEIRO 0 [facility] STICK/TAB INC INC LET REAGENT AUTO MICROSCOP Y BASIC 00066 CAYET[facility]O MONTE[facility] METABOLIC 0 [facility] PANEL INC INC CALCIUM TOTAL SUSCEPTIB 18275 CAYETANO MONTEIR[facility] LTY STDY 0 [facility] ANTIMICRB INC INC IAL MICRO/AGA R DILUTJ GROUND A0425 [facility] MILEAGE 0 AMBULANCE AMBULANCE PER SERVICE SERVICE STATUTE MILE AMB A0422 [facility] OXYGEN&O2 0 AMBULANCE AMBULANCE SUPPLIES SERVICE SERVICE LIFE SUSTAININ G SITUATION MANUAL 40014 [facility] THERAPY 0 [facility] TQS 1/> INC INC REGIONS EACH 15 MINUTES THERAPEUT 33726 CAYETANO MONTEIRO IC PX 1/> 0 [facility] AREAS INC INC EACH 15 MIN EXERCISES THERAPEUT 92531 CAYETANO MONTEIRO IC PX 1/> 0 [facility] AREAS INC INC EACH 15 MIN EXERCISES APPLICATI 50152 CAYETANO MONTEIRO ON 0 [facility] MODALITY INC INC 1/> AREAS HOT/COLD PACKS MANUAL 36137 CA[facility]ET[facility]O MONTEIRO THERAPY 0 [facility] TQS 1/> INC INC REGIONS EACH 15 MINUTES MANUAL 28746 CAYETANO CAYETANO THERAPY 0 [facility] TQS 1/> INC INC REGIONS EACH 15 MINUTES APPLICATI 97468 CAYETANO MONTEIRO ON 0 [facility] MODALITY INC INC 1/> AREAS HOT/COLD PACKS THERAPEUT 90855 CAYETANO MONTEIRO IC PX 1/> 0 [facility] AREAS INC INC EACH 15 MIN EXERCISES THERAPEUT 85101 CAYETANO MONTEIRO IC PX 1/> 0 [facility] AREAS INC INC EACH 15 MIN EXERCISES APPLICATI 80232 CAYETANO CAYETANO ON 0 [facility] MODALITY INC INC 1/> AREAS HOT/COLD PACKS MANUAL 75414 CAYETANO MONTEIRO THERAPY 0 [facility] TQS 1/> INC INC REGIONS EACH 15 MINUTES MANUAL 86335 CAYETANO CAYETANO THERAPY 0 [facility] TQS 1/> INC INC REGIONS EACH 15 MINUTES APPLICATI 94893 CAYETANO MONTEIRO ON 0 [facility] MODALITY INC INC 1/> AREAS HOT/COLD PACKS THERAPEUT 98691 CAYETANO CAYETANO IC PX 1/> 0 [facility] AREAS INC INC EACH 15 MIN EXERCISES NASL A7034 DEBORAH CABRERA INTRFCE 0 HOME MED HOME MED POS ARWAY EQUIP. EQUIP. PRSS [facility] DEVC W/WO HEAD STRAP HEADGEAR A7035 DEBORAH CABRERA USED 0 HOME MED HOME MED W/POSITIV EQUIP. EQUIP. E [facility] PRESSURE DEVICE CONTINUOU E0601 DEBORAH CABRERA S 0 HOME MED HOME MED POSITIVE EQUIP. EQUIP. [facility] PRESSURE DEVICE TUBING A7037 DEBORAH CABRERA USED WITH 0 HOME MED HOME MED POSITIVE EQUIP. EQUIP. [facility] PRESSURE DEVICE FILTER A7038 DEBORAH CABRERA DISPBL 0 HOME MED HOME MED USED EQUIP. EQUIP. W/POS [facility] [employer] PRESSURE DEVICE FILTER A7039 DEBORAH CABRERA NON 0 HOME MED HOME MED DISPBL EQUIP. [employer]QUIP. [employer] W/POS [employer] PRESS DEVICE THERAPEUT 87018 CAYETANO MONTEIRO IC PX 1/> 0 [facility] AREAS INC INC EACH 15 MIN EXERCISES APPLICATI 26835 CAYETANO MONTEIRO ON 0 [facility] MODALITY INC INC 1/> AREAS HOT/COLD PACKS MANUAL 39867 CAYETANO MONTEIRO THERAPY 0 [facility] TQS 1/> INC INC REGIONS EACH 15 MINUTES MANUAL 08898 CAYETANO MONTEIRO THERAPY 0 [facility] TQS 1/> INC INC REGIONS EACH 15 MINUTES RADEX 23897 CARLOS CEJA, WRIST [address] [facility] IMAGING ASSOCIATE S APPLICATI 89193 CAYETANO MONTEIRO ON 0 [facility] MODALITY INC INC 1/> AREAS HOT/COLD PACKS MEDICAL 87009 CAYETANO MONTEIRO NUTRITION 0 [facility] CENTER ASSMT&IVN TJ INDIV EACH 15 ME THERAPEUT 55354 CAYETANO MONTEIRO IC PX 1/> 0 [facility] AREAS INC INC EACH 15 MIN EXERCISES APPL 38222 CAYETANO MONTEIRO MODALITY 0 [facility] 1/> AREAS INC INC ELEC STIMJ UNATTENDE D THERAPEUT 64399 CAYETANO MONTEIRO IC PX 1/> 0 [facility] AREAS INC INC EACH 15 MIN EXERCISES APPLICATI 92183 CAYETANO MONTEIRO ON 0 [facility] MODALITY INC INC 1/> AREAS HOT/COLD PACKS MANUAL 00162 CAYETANO MONTEIRO THERAPY 0 [facility] TQS 1/> INC INC REGIONS EACH 15 MINUTES MANUAL 93921 CAYETANO MONTEIRO THERAPY 0 [facility] TQS 1/> INC INC REGIONS EACH 15 MINUTES PHYSICAL 71075 CAYETANO MONTEIRO THERAPY 0 [facility] RE-EVALUA INC INC TION APPLICATI 18616 CAYETANO MONTEIRO ON 0 [facility] MODALITY INC INC 1/> AREAS HOT/COLD PACKS THERAPEUT 65583 CAYETANO MONTEIRO IC PX 1/> 0 [facility] AREAS INC INC EACH 15 MIN EXERCISES APPL 33320 CAYETANO MONTEIRO MODALITY 0 [facility] 1/> AREAS INC INC PARAFFIN BATH APPL 50473 CAYETANO MONTEIRO MODALITY 0 [facility] 1/> AREAS INC INC PARAFFIN BATH THERAPEUT 13442 CAYETANO MONTEIRO IC PX 1/> 0 [facility] AREAS INC INC EACH 15 MIN EXERCISES MANUAL 60179 CAYETANO MONTEIRO THERAPY 0 [facility] TQS 1/> INC INC REGIONS EACH 15 MINUTES THERAPEUT 34825 CAYETANO MONTEIRO IC PX 1/> 9 [facility] AREAS INC INC EACH 15 MIN EXERCISES APPLICATI 46609 CAYETANO MONTEIRO ON 9 [facility] MODALITY INC INC 1/> AREAS HOT/COLD PACKS MANUAL 95196 CAYETANO MONTEIRO THERAPY 9 [facility] TQS 1/> INC INC REGIONS EACH 15 MINUTES APPL 33267 CAYETANO MONTEIRO MODALITY 9 [facility] 1/> AREAS INC INC PARAFFIN BATH APPL 29649 CAYETANO MONTEIRO MODALITY 9 [facility] 1/> AREAS INC INC ELEC STIMJ UNATTENDE D APPL 81520 CAYETANO MONTEIRO MODALITY 9 [facility] 1/> AREAS INC INC ELEC STIMJ UNATTENDE D MANUAL 70469 CAYETANO MONTEIRO THERAPY 9 [facility] TQS 1/> INC INC REGIONS EACH 15 MINUTES APPLICATI 38141 CAYETANO MONTEIRO ON 9 [facility] MODALITY INC INC 1/> AREAS HOT/COLD PACKS THERAPEUT 39955 CAYETANO MONTEIRO IC PX 1/> 9 [facility] AREAS INC INC EACH 15 MIN EXERCISES POLYSOM 77344 CAYETANO MONTEIRO 6/>YRS 9 [facility] SLEEP 4/> INC INC ADDL SHAUN ATTND THERAPEUT 36792 CAYETANO MONTEIRO IC PX 1/> 9 [facility] AREAS INC INC EACH 15 MIN EXERCISES MANUAL 01565 CAYETANO MONTEIRO THERAPY 9 [facility] TQS 1/> INC INC REGIONS EACH 15 MINUTES APPLICATI 79229 CAYETANO MONTEIRO ON 9 [facility] MODALITY INC INC 1/> AREAS HOT/COLD PACKS APPL 58446 CAYETANO MONTEIRO MODALITY 9 [facility] 1/> AREAS INC INC ELEC STIMJ UNATTENDE D APPL 22950 CAYETANO MONTEIRO MODALITY 9 [facility] 1/> AREAS INC INC ELEC STIMJ UNATTENDE D APPL 69322 CAYETANO MONTEIRO MODALITY 9 [facility] 1/> AREAS INC INC VASOPNEUM ATIC DEVICES THERAPEUT 52765 CAYETANO MONTEIRO IC PX 1/> 9 [facility] AREAS INC INC EACH 15 MIN EXERCISES PHYSICAL 41127 CAYETANO CAYETANO THERAPY 9 [facility] EVALUATIO INC INC N DEBRIDEME 26162 KARRIE YOON, NT 9 KRISTI Akhtar MASTOIDEC JUANCHO CAVITY SIMPLE BINOCULAR 24246 KARRIE YOON, 9 KRISTI Akhtar MICROSCOP Y SEPARATE DX PROCEDURE WRIST [id number] TRACY TRACY HAND 9 YOAV CASON MD ORTHOSIS PSC PSC EXT CONTROL COCK-UP PREFAB RADEX 51665 [place] [facility], WRIST 2 9 MEDICAL STEPHANI VIEWS IMAGING ASSOCIATE S LIPID 74148 COMBINED COMBINED PANEL 9 PHYSICIAN PHYSICIAN S LAB S LAB BLOOD 15091 COMBINED COMBINED COUNT 9 PHYSICIAN PHYSICIAN COMPLETE S LAB S LAB AUTO&AUTO DIFRNTL WBC COMPREHEN 78435 COMBINED COMBINED SIVE 9 PHYSICIAN PHYSICIAN METABOLIC S LAB S LAB PANEL DRUG 63437 COMBINED COMBINED SCREEN 9 PHYSICIAN PHYSICIAN QUANTITAT S LAB S LAB BROOKLYNN PHENYTOIN TOTAL LIPID 36500 COMBINED COMBINED PANEL 9 PHYSICIAN [place] [address] COMBINED COMBINED THYROID 9 PHYSICIAN PHYSICIAN STIMULATI S LAB S LAB NG HORMONE TSH RADEX 39614 [place] BR[place], WRIST 2 9 MEDICAL ZHAO Pardo VIEWS IMAGING ASSOCIATE S RADEX 06367 HANKS, HANKS, ANKLE 9 DON R DON R COMPLETE MINIMUM 3 VIEWS RADEX 77823 CAYETANO MONTEIRO WRIST 2 9 [facility] VIEWS INC INC APPLICATI 87513 BOWEN WISEMAN, ON CAST 9 TRACY TRACY ELBOW FINGER SHORT ARM RADEX 73061 CAYETANO MONTEIRO WRIST 2 9 [facility] VIEWS INC INC RADEX 86862 CAYETANO MONTEIRO WRIST 2 9 [facility] VIEWS INC INC BLOOD 19868 CAYETANO MONTEIRO COUNT 9 [facility] COMPLETE INC INC AUTO&[place] [address] CAYETANO MONTEIRO INFUSION 9 [facility] THERAPY/P INC INC ROPHYLAXI S /DX 1ST TO 1 [place] [address] CAYETANO MONTEIRO INFUSION 9 [facility] THERAPY INC INC PROPHYLAX IS/DX EA HOUR CLTX DSTL 31508 CAYETANO MONTEIRO RDL 9 [facility] FX/EPIPHY INC INC SL SEP W/MANJ WHEN PERF ANES 09297 [facility] RADIUS 9 ANESTH MELLISA L ULNA OF THE WRIST/VINAY CONROY D BONES CLOSED PX CLOS RDUC 7902 CAYETANO MONTEIRO FRACTURE 9 [facility] INC INC RADIUS&UL NA WITHOUT INTRL FIX RADEX 52068 CAYETANO MONTEIRO HAND 9 [facility] MINIMUM 3 [place] [address] COMBINED COMBINED THYROID 9 PHYSICIAN PHYSICIAN STIMULATI S LAB S LAB NG HORMONE TSH DRUG 31848 COMBINED COMBINED SCREEN 9 PHYSICIAN PHYSICIAN QUANTITAT S LAB S LAB BROOKLYNN PHENYTOIN TOTAL DRUG 48275 CAYETANO MONTEIRO SCREEN 9 [facility] QUANTITAT INC INC BROOKLYNN PHENYTOIN TOTAL COMPREHEN 84779 CAYETANO MONTEIRO SIVE 9 [facility] [place] [address] CAYETANO MONTEIRO THYROID 9 [facility] STIMULATI INC INC NG HORMONE TSH ECG 41230 CAYETANO ZUNIGA ROUTINE 9 [facility] W/LEAST PROF SERV 12 LDS I&R ONLY RHYTHM 37359 CAYETANO MONTEIRO ECG 1-3 9 [facility] LEADS INC INC TRACING ONLY W/O I&R BLOOD 08021 CAYETANO CAYETANO COUNT 9 [facility] COMPLETE INC INC AUTO&AUTO DIFRNTL WBC 3D 45926 CAYETANO MONTEIRO RENDERING 9 [facility] W/INTERP INC INC & POSTPROCE SS SUPERVIS[place] ON ECG 61422 CAYETANO MONTEIRO ROUTINE 9 [facility] ECG INC INC W/LEAST 12 LDS TRCG ONLY W/O I&[place] [address] CLARIBELRadha BRENNA, HEAD/BRAI 9 MEDICAL ZHAO P N W/O IMAGING CONTRAST ASSOCIATE MATERIAL S AMBULANCE A0429 [facility] SERVICE 9 AMBULANCE AMBULANCE BLS SERVICE SERVICE EMERGENCY TRANSPORT [facility] PER SERVICE SERVICE STATUTE MILE OPH 02560 [facility] 9 VISION SG M XM&EVAL COMPRHNSV ESTAB PT 1/> DRUG 19365 COMBINED COMBINED SCREEN 9 PHYSICIAN PHYSICIAN QUANTITAT S LAB S LAB [place] PHENYTOIN TOTAL GLUCOSE 11979 COMBINED COMBINED TOLERANCE 9 PHYSICIAN PHYSICIAN TEST GTT S LAB S LAB 3 [place] [address] COMBINED COMBINED THYROID 9 PHYSICIAN PHYSICIAN STIMULATI S LAB S LAB NG HORMONE TSH LIPID 52123 COMBINED COMBINED PANEL 9 PHYSICIAN [place] [address] COMBINED COMBINED THYROID 9 PHYSICIAN PHYSICIAN STIMULATI S LAB S LAB NG HORMONE TSH DRUG 98900 COMBINED COMBINED SCREEN 9 PHYSICIAN PHYSICIAN QUANTITAT S LAB [place] [address] COMBINED COMBINED THYROID 8 PHYSICIAN PHYSICIAN STIMULATI S LAB S LAB NG HORMONE TSH DRUG 92883 COMBINED COMBINED SCREEN 8 PHYSICIAN PHYSICIAN QUANTITAT S LAB S LAB [place] PHENYTOIN TOTAL MICROSURG 25834 KARRIE YOON, CATHERINES REQ 8 KRISTI Akhtar USE OPERATING MICROSCOP E DEBRIDEME 72813 KARRIE YOON, KORTNEY 8 KRISTI Akhtar MASTOIDEC JUANCHO CAVITY SIMPLE DEBRIDEME 87848 KARRIE YOON, KORTNEY 8 KRISTI Akhtar MASTOIDEC JUANCHO CAVITY SIMPLE MICROSURG 98970 KARRIE YOON, CATHERINES REQ 8 KRISTI Akhtar USE OPERATING MICROSCOP E DRUG 46707 COMBINED COMBINED SCREEN 8 PHYSICIAN PHYSICIAN QUANTITAT S LAB S LAB [place] PHENYTOIN TOTAL GENERAL 82335 COMBINED COMBINED HEALTH 8 PHYSICIAN PHYSICIAN PANEL S LAB S LAB COMPUTER- 66642 [facility] AIDED 8 [facility] DETECTION INC INC SCREENING MAMMOGRAP HY SCREENING 38875 [facility] 8 [facility] MAMMOGRAP INC INC HY BILATERAL DUP-SCAN 88086 [facility] XTR VEINS 8 [facility] INC INC UNILATERA L/LIMITED STUDY DUPLEX 36048 [facility] SCAN 8 [facility] EXTRACRAN INC INC IAL ART COMPL BI STUDY COMPREHEN 51735 [facility] SIVE 8 [facility] METABOLIC INC INC PANEL DRUG 70046 [facility] SCREEN 8 [facility] QUANTITAT INC [place] [address] [facility] THYROID 8 [facility] STIMULATI INC INC NG HORMONE TSH BLOOD 05110 [facility] COUNT 8 [facility] COMPLETE INC INC AUTO&AUTO DIFRNTL WBC LIPID 65523 [facility] PANEL 8 [facility] INC INC RADIOLOGI 97638 LATONYA HANKS C EXAM 8 DON R DON R PELVIS COMPL MINIMUM 3 VIEWS RADIOLOGI 30555 LATONYA HANKS C EXAM 8 DON R DON R PELVIS COMPL MINIMUM 3 VIEWS COMMODE [id number] DEBORAH CABRERA CHAIR 8 HOME MED HOME MED MOBILE OR EQUIP. EQUIP. [facility] STATIONAR Y W/FIXED ARMS DRUG 44343 [facility] SCREEN 8 MED LAB MED LAB QUANTITAT [place] PHENYTOIN TOTAL SBSQ 66991 LATONYA HANKS NURSING 8 DON R DON R FACILITY CARE/DAY E/M STABLE 10 MIN DRUG 08791 [facility] SCREEN 8 MED LAB MED LAB QUANTITAT [place] PHENYTOIN TOTAL PHYSICAL 51872 [facility] THERAPY 8 [facility]ALTH[facility] HEALTHCAR EVALUATIO E E N THERAPEUT 31039 [facility] IC PX 1/> 8 HEALTHCAR HEALTHCAR AREAS E E EACH [place] [address] AMY AMESMONT 1/> AREAS 8 HEALTHCAR HEALTHCAR EACH 15 [place] [address] AMY AMESPARAMJITT 1/> AREAS 8 HEALTHCAR HEALTHCAR EA 15 E E MIN GAIT TRAINJ W/STAIR THERAPEUT 35803 KWAKUPARAMJITFlakito AMY ACTVITY 8 HEALTHCAR HEALTHCAR DIRECT PT E E CONTACT EACH 15 MIN OCCUPATIO 71544 [facility] 8 HEALTHCAR HEALTHCAR THERAPY E E EVALUATIO N SELF-CARE 27182 [facility] REYES /HOME 8 HEALTHCAR HEALTHCAR MGMT E E TRAINING EACH 15 MINUTES HOSPITAL [address]51 [facility] 8 DON R DON R DAY MANAGEMEN T 30 MIN/< GROUND A0425 [facility] 8 AMBULANCE AMBULANCE PER SERVICE SERVICE STATUTE MILE [facility] 75941 [facility] 8 DON R DON R CARE/DAY 25 MINUTES SBSQ 51697 [facility] 8 DON R DON R CARE/DAY 25 MINUTES SBSQ 33701 [facility] 8 DON R DON R CARE/DAY 25 MINUTES RADEX 89367 [place] [facility] SACRUM & 8 MEDICAL ZHAO P COCCYX IMAGING MINIMUM 2 ASSOCIATE VIEWS S RADEX 39087 [place] [facility] SPINE 8 MEDICAL ZHAO P LUMBOSACR IMAGING AL ASSOCIATE MINIMUM 4 S VIEWS RADIOLOGI 14218 [place] CEJA 8 MEDICAL ZHAO P EXAMINATI IMAGING ON PELVIS ASSOCIATE 1/2 S VIEWS 3D 81873 [place] CEJA 8 MEDICAL ZHAO P IMAGING W/INTERP& ASSOCIATE POSTPROC S DIFF WORK STATION CT LOWER 00623 [place] [facility] EXTREMITY 8 MEDICAL ZHAO P W/O IMAGING CONTRAST ASSOCIATE MATERIAL S RADEX HIP 40931 [place] [facility], 8 MEDICAL ZHAO P UNILATERA IMAGING L ASSOCIATE COMPLETE S MINIMUM 2 VIEWS INITIAL 02931 [facility] 8 DON R DON R CARE/DAY 50 MINUTES RADEX HIP 18530 [facility] Carrillo UNILATERA RADIOLOGY L COMPLETE ASSOCIATE MINIMUM 2 S PSC VIEWS RADIOLOGI 28360 [facility] 8 [place]IST[place] S EXAMINATI RADIOLOGY ON PELVIS 1/2 ASSOCIATE VIEWS S PSC GROUND A0425 [facility] MILEAGE 8 [place] PER STATUTE AMBULANCE AMBULANCE MILE AMBULANCE A0429 [facility] SERVICE 8 [place] CO C[place] CO BLS EMERGENCY AMBULANCE AMBULANCE TRANSPORT DEBRIDEME 87117 KARRIE YOON, KORTNEY 8 KRISTI Akhtar MASTOIDEC JUANCHO CAVITY CMPLX MICROSURG 51708 KARRIE YOON TQS REQ 8 KRISTI Akhtar USE OPERATING MICROSCOP E ANESTHESI 21576 Maxine SULLIVAN 8 ANESTH FAUSTO Maxine EXTERNAL OF THE MIDDLE & BLUEGRASS INNER EAR W/BX NOS LEVEL III 04873 PATHOLOGY PATHOLOGY SURG 8 & & PATHOLOGY CYTOLOGY CYTOLOGY LAB LAB GROSS&TANI ROSCOPIC EXAM MICROSURG 83301 KARRIE YOON TQS REQ 8 KRISTI Akhtar USE OPERATING MICROSCOP E DEBRIDEME 64446 KARRIE YOON NT 8 KRISTI Akhtar MASTOIDEC JUANCHO CAVITY SIMPLE Encounters Encounter Start End Date Code Location Performer Type Date OFFICE 11369 [place] [facility] OUTPATI[facility] 7 7 NANCY FIELDS T VISIT [facility] 15 MINUTES OFFICE 98520 [facility] YOON OUTPATIEN 7 7 PHYSICIAN T VISIT S GROUP 15 MINUTES OFFICE 75804 [facility] YOON OUTPATIEN 7 7 PHYSICIAN T VISIT S GROUP 15 MINUTES OFFICE 45800 [facility] YOON OUTPATIEN 7 7 PHYSICIAN T VISIT S GROUP 15 MINUTES OFFICE 97830 [place] [facility] OUTPATIEN 7 7 NANCY FIELDS T VISIT PSC 15 MINUTES OFFICE 43297 A [facility] KILPELA OUTPATIEN 7 7 NANCY FIELDS T VISIT PSC 15 MINUTES OFFICE 13061 [facility] YOON OUTPATIEN 7 7 PHYSICIAN T VISIT S GROUP 15 MINUTES EMERGENCY 93735 [facility] ALEJANDRO 7 7 PHYSICIAN DEPARTMEN S, PLLC T VISIT HIGH/URGE NT SEVERITY [facility]OSP[facility] INC T EMERGENCY 84183 [facility] 7 7 [facility] DEPARTMEN INC T VISIT MODERATE SEVERITY OFFICE 28938 A [facility] KILPELA OUTPATIEN 7 7 NANCY FIELDS T VISIT PSC 15 MINUTES OFFICE 12870 [facility] KILPELA OUTPATIEN 7 7 NANCY FIELDS T VISIT PSC 15 MINUTES OFFICE 10889 [facility] RONDA CONSULTAT 7 7 PHYSICIAN ION S GROUP NEW/ESTAB PATIENT 40 MIN HOSPITAL [facility] - 7 7 [facility] OUT[facility]EN [facility] T OFFICE 48574 A C KILPELA OUTPATIEN 6 6 NANCY FIELDS T VISIT PSC 15 MINUTES OFFICE 74596 [facility] YOON OUTPATIEN 6 6 PHYSICIAN KERI T VISIT S GROUP 10 MINUTES HOSPITAL [place] - 6 [facility] [place] - 6 6 [facility] OFFICE 13688 [facility] YOON OUTPATIEN 6 6 PHYSICIAN KERI T VISIT S GROUP 15 MINUTES HOSPITAL [place] - 6 6 [facility] [place] - 6 6 [facility] - 6 6 [facility] OUTPATIEN INC T OFFICE 82720 [facility] YOON OUTPATIEN 6 6 PHYSICIAN KERI T VISIT S GROUP 10 MINUTES HOSPITAL [place] - 6 6 [facility] OUTPATIEN INC T OFFICE 60572 A C TALIBLA OUTPATIEN 6 6 NANCY JUAREZ T VISIT PSC 25 MINUTES OFFICE 30263 A C FLORENTINO MARTY OUTPATIEN 6 6 NANCY FIELDS T VISIT PSC 15 MINUTES HOSPITAL [place] - 6 6 [facility] OUTPATIEN INC T OFFICE 52376 [facility] YOON OUTPATIEN 6 6 PHYSICIAN KERI T VISIT S GROUP 15 MINUTES PERIODIC 51986 A C TALIBLA PREVENTIV 6 6 NANCY FIELDS JEA E MED EST PSC PATIENT 40-64YRS OFFICE 94968 [facility] YOON OUTPATIEN 6 6 PHYSICIAN KERI T VISIT S GROUP 15 MINUTES OFFICE 75404 [place] CRUZ OUTPATIEN 6 6 NANCY OLSON T VISIT PSC 15 MINUTES OFFICE 31751 A C ARMINDA OUTPATIEN 6 6 NANCY JUAREZ T VISIT PSC 15 MINUTES OFFICE 68159 [facility] YOON OUTPATIEN 6 6 PHYSICIAN KERI T VISIT S GROUP 15 MINUTES OFFICE 51365 [place] [facility]ART[facility] OUTPATIEN 5 5 NANCY FIELDS T VISIT PSC 25 MINUTES OFFICE 16008 [place] [facility] OUTPATIEN 5 5 NANCY FIELDS T VISIT PSC 15 MINUTES HOME [facility], 5 5 HOME INPATIENT HEALTH AGENCY HOME [facility], 5 5 HOME INPATIENT HEALTH AGENCY OFFICE 05373 [place] [facility] MARTY OUTPATIEN 5 5 NANCY FIELDS T VISIT PSC 15 MINUTES OFFICE 42217 [place] [facility] OUTPATIEN 5 5 NANCY FIELDS T VISIT PSC 15 MINUTES OFFICE 39942 [facility] YOON OUTPATIEN 5 5 PHYSICIAN KERI T VISIT S GROUP 15 MINUTES EMERGENCY 56673 [facility] 5 5 [facility] DEPARTMEN INC T VISIT LOW/MODER SEVERITY EMERGENCY 28865 [facility] 5 5 PHYSICIAN HARRY DEPARTMEN S PLLC T VISIT MODERATE SEVERITY [facility] [place] - 5 5 [facility] OUTPATIEN INC T OFFICE 08577 [facility] YOON OUTPATIEN 5 5 PHYSICIAN KERI T NEW 30 S GROUP MINUTES OFFICE 92757 [place] [facility] OUTPATIEN 5 5 NANCY FIELDS T VISIT PSC 25 MINUTES OFFICE 03443 [place] FERGUSON OUTPATIEN 5 5 NANCY FIELDS T VISIT PSC 15 MINUTES OFFICE 96330 [place] FERGUSON OUTPATIEN 5 5 NANCY FIELDS T VISIT PSC 15 MINUTES OFFICE 15464 [place] [facility] OUTPATIEN 4 4 NANCY FIELDS T VISIT PSC 15 MINUTES OFFICE 28601 Y[facility] YOON OUTPATIEN 4 4 KERI KERI T VISIT 15 MINUTES HOSPITAL [facility] - 4 4 [facility] OUTPATIEN INC T OFFICE 42843 [facility] YOON OUTPATIEN 4 4 KERI KERI T VISIT 15 MINUTES OFFICE 81320 [place] SANTAMARIAES MARTY OUTPATIEN 4 4 T VISIT 15 MINUTES OFFICE 98007 [place] MARTY [place] [facility] OUTPATIEN 4 4 T VISIT 25 MINUTES OFFICE 34141 [place] MARTY [place] [facility] OUTPATIEN 4 4 T VISIT 15 MINUTES [facility]OSP[facility] 4 [facility] OUTPATIEN INC T OFFICE 40674 [place] MARTY [place] MARTY OUTPATIEN 4 4 T VISIT 25 MINUTES OFFICE 09446 Y[facility] YOON OUTPATIEN 4 4 KERI KERI T VISIT 15 MINUTES OFFICE 49675 [place] SANTAMARIAES MARTY OUTPATIEN 4 4 T VISIT 15 MINUTES OFFICE 76380 [place] FIELDS MARTY OUTPATIEN 3 3 T VISIT 10 MINUTES OFFICE 48988 [place] FIELDS MARTY OUTPATIEN 3 3 T VISIT 15 MINUTES OFFICE 18054 [place] [facility]ARTY OUTPATIEN 3 3 NANCY FIELDS T VISIT PSC 15 MINUTES OFFICE 04484 A C FLORENTINO MARTY OUTPATIEN 3 3 NANCY FIELDS T VISIT PSC 15 MINUTES OFFICE 32371 A C DUGLASPELA OUTPATIEN 3 3 NANCY JUAREZ T VISIT PSC 15 MINUTES HOSPITAL [place] - 3 3 [facility] OUTPAT[facility] INC T HOME [facility], 3 3 [facility] T AGENCY OFFICE 74612 A C TALIBLA OUTPATIEN 3 3 NANCY JUAREZ T NEW 30 PSC MINUTES OFFICE 25604 LATONYA HANKS OUTPATIEN 3 3 DON DON T VISIT 15 MINUTES OFFICE 05290 KARRIE YOON OUTPATIEN 3 3 KERI KERI T VISIT 15 MINUTES Emergency DEVYN [place] Ang (ER) 3 14:58 3 15:34 [facility] EMERGENCY [address] [facility] HIGH[facility]URGE NT SEVERITY [facility] [place] - 3 3 [facility] OUTPATIEN INC T EMERGENCY 00236 [place] 3 3 [facility] DEPARTMEN INC T VISIT LOW/MODER SEVERITY [facility]OSP[facility] [place] - 3 3 [facility] OUTPATIEN INC T OFFICE 54224 KARRIE LIMON OUTPATIEN 3 3 KERI KERI T VISIT 10 MINUTES OFFICE 32459 HANKS HANKS OUTPATIEN 3 3 DON DON T VISIT 15 MINUTES HOSP[facility] [place] - 3 3 [facility] [place] - 3 3 [facility]IEN [facility] T PERIODIC 78236 LATONYA HANKS PREVENTIV 3 3 DON DON E MED EST PATIENT 40-64YRS OFFICE 86262 KARRIE YOON OUTPATIEN 3 3 KERI KERI T VISIT 25 MINUTES HOME [facility], 3 3 HOME OUTPATIEN HEALTH T AGENCY HOME [facility], 2 2 [facility] EMERGENCY 82288 STEFFANY ANG 2 2 III ADDIS III [facility] T VISIT HIGH/URGE NT SEVERITY [facility] [place] - 2 2 [facility] EMERGENCY 51238 [place] 2 2 [facility] T VISIT LOW/MODER SEVERITY OFFICE 17766 LATONYA HOLGUINS OUTPATIEN 2 2 DON DON T VISIT 25 MINUTES EMERGENCY 15345 NAHOMY NAHOMY 2 2 [facility] T VISIT HIGH/URGE NT SEVERITY EMERGENCY 89361 [place] 2 2 [facility] T VISIT LOW/MODER SEVERITY [facility] [place] - 2 2 [facility] OFFICE 95531 LATONYA SHEAHENS OUTPATIEN 2 2 DON DON T VISIT 25 MINUTES OFFICE 06713 AHNKS HANKS OUTPATIEN 2 2 DON DON T VISIT 25 MINUTES HOSP[facility] [place] - 2 2 [facility] OFFICE 62934 HANKS HANKS OUTPATIEN 2 2 DON DON T VISIT 25 MINUTES OFFICE 11750 HANKS HANKS OUTPATIEN 2 2 DON DON T VISIT 15 MINUTES [facility] [place] [facility] 2 2 [facility] T [facility] [place] - 2 2 [facility] T OFFICE 56310 H[facility] HANKS OUTPATIEN 2 2 DON DON T VISIT 15 MINUTES HOME [facility], 2 2 [facility]IST[facility] OUTPATIEN & HOME HE T HOME [facility], 2 2 [facility] OUTPATIEN & HOME HE T OFFICE 74062 HANKS HANKS OUTPATIEN 2 2 DON DON T VISIT 15 MINUTES OFFICE 48304 HANKS AHNKS OUTPATIEN 1 1 DON DON T VISIT 15 MINUTES [facility] [place] [facility] 1 [facility] T OFFICE 12498 [place] OUT[facility] 1 1 [facility] VISIT CLINIC 25 PSC MINUTES [facility] [place] - 1 1 [facility] OUTPATIEN INC T OFFICE 00696 HANKS HANKS OUTPATIEN 1 1 DON DON T VISIT 15 MINUTES OFFICE 11410 HANKS HANKS OUTPATIEN 1 1 DON DON T VISIT 15 MINUTES OFFICE 80543 [place] OUT[facility]EN 1 1 [facility] VISIT CLINIC 25 PSC MINUTES [facility] [place] - 1 1 [facility] OUTPATIEN INC T OFFICE 34280 HANKS HANKS OUTPATIEN 1 1 DON DON T VISIT 15 MINUTES EMERGENCY 37031 [place] 1 1 [facility] DEPARTMEN INC T VISIT HIGH/URGE NT SEVERITY EMERGENCY 78918 PEDRITO HERNANDEZ DEPT 1 1 EMERGENCY VISIT SERVICES HIGH SEVERITY& THREAT [facility] [place] - 1 1 [facility] OUTPATIEN INC T OFFICE 24217 KARRIE YOON OUTPATIEN 1 1 KERI KERI T VISIT 15 MINUTES EMERGENCY 00930 PEDRITO ANG DEPT 1 1 EMERGENCY III ADDIS VISIT SERVICES HIGH SEVERITY& THREAT [facility] EMERGENCY 84187 [place] 1 1 [facility] DEPARTMEN INC T VISIT HIGH/URGE NT SEVERITY [facility] [place] - 1 1 [facility] OUTPAT[facility]EN INC T [facility] [place] - [facility] 1 [facility]PAT[facility] INC T OFFICE 99404 LATONYA SHEAHENS OUTPATIEN 1 1 DON DON T VISIT 15 MINUTES HOSP[facility] [place] [facility] 1 1 [facility] OUTPATIEN INC T OFFICE 07961 [place] CONSULTAT 1 1 [facility] NEW/ESTAB PSC PATIENT 60 MIN [facility] [place] - 1 1 [facility] OUTPATIEN INC T OFFICE 50922 LATONYA SHEAHENS OUTPATIEN 1 1 DON DON T VISIT 15 MINUTES [facility]OSP[facility] [place] - 1 1 [facility] OUTPATIEN INC T EMERGENCY 46132 PEDRITO COREA DEPT 1 1 EMERGENCY TANI VISIT SERVICES HIGH SEVERITY& THREAT [facility] EMERGENCY 84159 [place] 1 1 [facility] DEPARTMEN INC T VISIT HIGH/URGE NT SEVERITY [facility] [place] - 1 1 [facility] OUTPATIEN INC T EMERGENCY 13556 [place] 0 0 [facility] DEPARTMEN INC T VISIT LOW/MODER SEVERITY OFFICE 69912 LATONYA HOLGUINS OUTPATIEN 0 0 DON DON T VISIT 15 MINUTES EMERGENCY 87354 PEDRITO HERNANDEZ DEPT 0 0 EMERGENCY VISIT SERVICES HIGH SEVERITY& THREAT [facility] [place] - 0 0 [facility] OUTPATIEN INC T OFFICE 28201 CONRAD MARTINES OUTPATIEN 0 0 RUPERT RUPERT T NEW 45 MINUTES OFFICE 76108 LATONYA HOLGUINS OUTPATIEN 0 0 DON DON T VISIT 15 MINUTES OFFICE 25774 KARRIE YOON OUTPATIEN 0 0 KERI KERI T VISIT 15 MINUTES [facility] [place] - 0 0 [facility] OUTPATIEN INC T OFFICE 02263 LATONYA HOLGUINS OUTPATIEN 0 0 DON DON T VISIT 15 MINUTES OFFICE 10114 KARRIE YOON OUTPATIEN 0 0 KERI KERI T VISIT 10 MINUTES OFFICE 06713 LATONYA HOLGUINS OUTPATIEN 0 0 DON DON T VISIT 15 MINUTES H[facility] [place] - 0 0 [facility] OUTPATIEN INC T EMERGENCY 77698 PEDRITO SOKASteven BAB 0 0 EMERGENCY DEPARTMEN SERVICES T VISIT HIGH/URGE NT SEVERITY OFFICE 59653 LATONYA HOLGUINS OUTPATIEN 0 0 DON DON T VISIT 15 MINUTES [facility] [place] - 0 0 [facility] OUTPATIEN INC T OFFICE 75361 HANKS, HANKS, OUTPATIEN 0 0 DON R DON R T VISIT 15 MINUTES OFFICE 69146 KARRIE YOON, OUTPATIEN 0 0 KRISTI G KRISTI G T VISIT 15 MINUTES [facility] [place] - 0 0 [facility] T [facility] [place] - 0 0 [facility] OUTPATIEN INC T OFFICE 63528 CARINA YOONON, OUTPATIEN 0 0 KRISTI G KRISTI G T VISIT 15 MINUTES [facility]OSP[facility] [place] - 0 0 [facility] OUTPATIEN INC T PERIODIC 24378 LATONYA HANKS PREVENTIV 0 0 DON R DON R E MED EST PATIENT 40-64YRS OFFICE 28133 CONRAD MARTINES OUTPATIEN 0 0 , EDWIN PINEDA T VISIT W W 15 MINUTES HOSP[facility] [place] - 0 0 [facility]EN [facility] T OFFICE 62124 LATONYA HANKS OUTPATIEN 0 0 DON R DON R T VISIT 15 MINUTES EMERGENCY 52129 PEDRITO SALDANA, 0 0 EMERGENCY [facility] T VISIT HIGH/URGE ASSOCIATE NT S [facility] [place] - 0 0 [facility]IEN [facility] OFFICE 97917 LATONYA HANKS OUTPATIEN 0 0 DON R DON R T VISIT 15 MINUTES [facility] [place] - 0 0 [facility]EN [facility] [place] - 0 0 [facility] OFFICE 76979 BOWEN WISEMAN OUTPATIEN 0 0 TRACY TRACY T VISIT 15 MINUTES [facility]OSP[facility] [place] - 0 0 [facility] [place] - 0 0 [facility] H[facility] [place] - 9 9 [facility] [place] - 9 9 [facility] T OFFICE 75654 LATONYA HANKS OUTPATIEN 9 9 DON R DON R T VISIT 15 MINUTES OFFICE 84219 [facility] W[facility]EM[facility] OUTPATIEN 9 9 TRACY TRACY T VISIT 15 MINUTES OFFICE 22133 B[facility]EN WISEMAN OUTPATIEN 9 9 TRACY TRACY T VISIT 15 MINUTES OFFICE 79055 LATONYA HANKS OUTPATIEN 9 9 DON R DON R T VISIT 15 MINUTES OFFICE 90594 LATONYA HANKS OUTPATIEN 9 9 DON R DON R T VISIT 15 MINUTES [facility]OSP[facility] [place] - 9 9 [facility] T [facility] [place] - 9 9 [facility] INC T OFFICE 38844 LATONYA HANKS OUTPATIEN 9 9 DON R DON R T VISIT 15 MINUTES [facility]OSP[facility] [place] - 9 9 [facility] OUTPATIEN INC T [facility]OSP[facility] [place] [facility] 9 9 [facility] INC T [facility] [place] - 9 9 [facility]PATIEN INC T OFFICE 81708 BOWEN WISEMAN OUTPATIEN 9 9 TRACY TRACY T NEW 45 MINUTES HOSPITAL [place] - 9 9 [facility] OUTPATIEN INC T EMERGENCY 20439 [place] 9 9 [facility] DEPARTMEN INC T VISIT MODERATE SEVERITY OFFICE 81709 LATONYA HANKS OUTPATIEN 9 9 DON R DON R T VISIT 15 MINUTES OFFICE 85435 LATONYA HANKS OUTPATIEN 9 9 DON R DON R T VISIT 15 MINUTES EMERGENCY 20048 PEDRITO SALDANA, DEPT 9 9 EMERGENCY NEAL VISIT SERVICES O HIGH SEVERITY& ASSOCIATE THREAT S [facility] [place] - 9 9 [facility] OUTPATIEN INC T HOME [facility], 9 9 HOME OUTPATIEN HEALTH T CARE INC HOME 72688 FAMILY VISIT EST 9 9 HOME PT HEALTH MOD-HI CARE INC SEVERITY 40 MINUTES HOME 65233 FAMILY VISIT EST 9 9 HOME PT HEALTH MOD-HI CARE INC SEVERITY 40 MINUTES HOME FAMILY HEALTH, 9 9 HOME OUTPATIEN HEALTH T CARE INC HOME 27781 FAMILY VISIT EST 9 9 HOME PT HEALTH MOD-HI CARE INC SEVERITY 40 MINUTES HOME [facility]ILY HEALTH, 9 9 HOME OUTPATIEN HEALTH T CARE INC OFFICE 00944 LATONYA HANKS OUTPATIEN 9 9 DON R DON R T VISIT 15 MINUTES OFFICE 73133 LATONYA HANKS OUTPATIEN 8 8 DON R DON R T VISIT 15 MINUTES H[facility] [place] - 8 8 [facility] OUTPATIEN INC T OFFICE 54430 LATONYA HANKS OUTPATIEN 8 8 DON R DON R T VISIT 15 MINUTES EMERGENCY 59972 CLARY SALDANA, 8 8 [facility] T VISIT ON MODERATE SEVERITY EMERGENCY [id number] [place] 8 8 [facility] DEPARTMEN INC T VISIT LOW/MODER [facility]VERITY [facility] [place] 8 8 [facility] OUTPATIEN [facility] T [facility] [place] - 8 8 [facility]PATIEN INC T [facility] 8 8 [facility] INC T OFFICE [id number] LATONYA HANKS OUTPATIEN 8 8 DON R DON R T VISIT 15 MINUTES OFFICE [id number] LATONYA HANKS OUTPATIEN 8 8 DON R DON R T VISIT 15 MINUTES OFFICE [id number] LATONYA HANKS OUTPATIEN 8 8 DON R DON R T VISIT 15 MINUTES OFFICE 35717 LATONYA HANKS OUTPATIEN 8 8 DON R DON R T VISIT 15 MINUTES HOME [facility], 8 8 HOME [facility] T AGENCY SPECIAL [facility] 8 [facility] OFFICE [id number] KARRIE YOON OUTPATIEN 8 8 KRISTI Akhtar T VISIT 15 MINUTES SPECIAL [facility] 8 8 [facility] 8 8 [facility] INPATIENT [facility] OFFICE [id number] KARRIE YOON OUTPATIEN 8 8 KRISTI Akhtar T VISIT 15 MINUTES
--- OUTSIDE RECORDS SUMMARY | 2017-04-07 20:10 | External Medical Summary Rpt | CCD ---
Author Author , ALISABRITTNEY Organization [facility] Address Unknown Phone [email or web address] Care Team Providers Care Proj Engineer Name Role Phone A Angeles CRUZ MD PSC, Maxine Unavailable Unavailable RADHA ENG MD Unavailable Unavailable [facility] Unavailable Unavailable SERVICE, [facility] Unavailable Unavailable SERVICE[facility] Unavailable Unavailable SERVICE, [facility] TRACY WISEMAN, Unavailable Unavailable TRACY WISEMAN [facility] Unavailable Unavailable LAB, [facility] MEME VALENTINE Unavailable Unavailable MEME YAZ, Unavailable Unavailable MEME YAZ STEPHANI VALENTINE, Unavailable Unavailable MEME, STEPHANI MARTINES RUPERT, Unavailable Unavailable MARTINES RUPERT CONRAD RUPERT, Unavailable Unavailable EDWIN ENRIQUEZ, Unavailable Unavailable EDWIN MARTINES [facility] Unavailable [place]available [place], [facility] [place] [facility]available Un[place], [facility] [place] [facility], Unavailable Unavailable [facility] Unavailable Unavailable [facility], [facility] Unavailable Unavailable SERVBLUEGRAS, [facility] FEDERATED Unavailable Unavailable TRANSPORTATION SER, [facility] NAHOMY KIM Unavailable Unavailable TANI ERIKA COREA, Unavailable Unavailable ERIKA COREA [facility] Unavailable [facility] Unavailable Unavailable INC, [facility] Unavailable Unavailable HOSPITAL P, [facility] CALISTA MEJIA, Unavailable Unavailable CALISTA MEJIA HINES Unavailable Unavailable HOWARDBRADFORDHOWARD Unavailable Unavailable MARIETTA HOWARD, Unavailable Unavailable MARIETTA HOWARD A [facility], Unavailable Unavailable [facility] Unavailable Unavailable IMAGING [facility], [facility], Unavailable Unavailable [facility] [...] INC., Unavailable Unavailable [facility] YOON, YOON Unavailable Unavailable YOON KERI, YOON Unavailable Unavailable KERI YOON KERI, YOON Unavailable Unavailable KERI YOON, KRISTI G, Unavailable Unavailable KRISTI YOON G MELLISA VITAL, Unavailable Unavailable MELLISA VITAL AUDIE JR DWI, AUDIE Unavailable Unavailable JR DWI [facility] Unavailable Unavailable 11, [facility] 11 [facility] Unavailable Unavailable ACTION, [facility], Unavailable Unavailable [facility] NAVIN HARRY, NAVIN Unavailable Unavailable HARRY [facility], [facility]available Unavailable [facility] Unavailable Unavailable SERVICES, [facility] TYNER Zeppelin Unavailable Unavailable AMBULANCE, [facility] LORRAINE ZUNIGA JR Unavailable Unavailable F, [facility] Unavailable Unavailable [facility] ZHAO CEJA, Unavailable Unavailable ZHAO CEJA FLORENTINO MARTY, FLORENTINO MARTY Unavailable Unavailable FLORENTINO MARTY, FLORENITNO MARTY Unavailable Unavailable MULBERRY HARRY, Unavailable Unavailable MULBERRY HARRY [facility] Unavailable Unavailable [facility], [facility] NURSES REGISTRY & Unavailable Unavailable HOME [facility], [facility] LABS, [facility], [facility] Unavailable Unavailable LABS, [facility], Unavailable Unavailable [facility], [facility] Unavailable Unavailable LAB, [facility]Y [facility] LAB [facility], Unavailable Unavailable [facility], Unavailable Unavailable [facility] RONDA, RONDA Unavailable Unavailable RICO DO, Unavailable Unavailable JACKY CASON MD Unavailable Unavailable [facility], TRACY CASON MD [facility] SCIFRES ANG, SCIFRES Unavailable Unavailable ANG SCIFRES ANG, SCIFRES Unavailable Unavailable ANG IZZY SG M, Unavailable Unavailable SCIHIREN SG M SOKAN BAB, SOKAN BAB Unavailable [...] SOURCE FAUSTO GERBER, Unavailable Unavailable FAUSTO GERBER [facility] # Unavailable Unavailable [id number], [facility] # [id number] FLAVIA ALEJANDRO Unavailable Unavailable [facility] Unavailable Unavailable AGENCY, [facility] WEHRMAN III ADDIS, Unavailable Unavailable WEHRMAN III ADDIS WEDEIDRE III ADDIS, Unavailable Unavailable WEVISHNU III NANCY LEA Unavailable Unavailable WHITNEY Purpose Continuity of Care Document - 07-04-2007 through 2016 Problems Code Diagnosis DOS Provider Status R748 ABNORMAL 02-21-2017 [facility] [employer]. OTHER SERUM ENZYMES H6691 OTITIS 01-29-2017 [facility] MEDIA PHYSICIANS UNSPECIFIED GROUP RIGHT EAR H7011 CHRONIC 01-29-2017 [facility] MASTOIDITIS PHYSICIANS RIGHT EAR GROUP H7091 UNSPECIFIED 01-01-2017 [facility] PHYSICIANS MASTOIDITIS GROUP RIGHT EAR H7441 POLYP OF 01-01-2017 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 CIENCY PHYSICIANS RELATED GROUP DIFFUSE ENDEMIC GOITER E069 THYROIDITIS 12-11-2016 [facility] PHYSICIANS UNSPECIFIED GROUP R69 ILLNESS 12-11-2016 [facility] UNSPECIFIED TRANSPORTAT ION SER D649 ANEMIA 11-16-2016 [facility] UNSPECIFIED YOGESH HOLDINGS E785 HYPERLIPIDE 11-16-2016 [facility] GWEN YOGESH UNSPECIFIED HOLDINGS [id number] EPILEPSY 11-16-2016 [facility] UNS NOT YOGESH INTRACT W/O HOLDINGS STATUS EPILEPTICUS I10 ESSENTIAL 11-16-2016 [facility] PRIMARY YOGESH HYPERTENSIO HOLDINGS N Z6826 BODY MASS 11-16-2016 [facility] INDEX BMI YOGESH 26.0-26.9 HOLDINGS ADULT H524 PRESBYOPIA 10-24-2016 HOWARD K222 ESOPHAGEAL 10-16-2016 A Angeles CRUZ OBSTRUCTION PSC K5901 SLOW 10-16-2016 A Angeles CRUZ TRANSIT PSC CONSTIPATIO N K828 OTHER 10-16-2016 A Angeles CRUZ SPECIFIED PSC DISEASES OF GALLBLADDER R109 UNSPECIFIED 10-16-2016 A Angeles CRUZ ABDOMINAL PSC PAIN R1310 DYSPHAGIA 10-16-2016 A Angeles CRUZ UNSPECISABEL FIELDS PSC [id number] UNS FOREIGN 10-16-2016 A Angeles CRUZ BODY PSC LARYNX CAUS OTH INJURY INIT ENC Z6825 BODY MASS 10-16-2016 A Angeles CRUZ INDEX BMI PSC 25.0-25.9 ADULT E039 HYPOTHYROID 10-12-2016 [facility] ISM PHYSICIANS UNSPECIFIED GROUP [id number] FOOD IN 10-09-2016 [facility] ESOPHAGUS PHYSICIANS, CAUSING OTH PLLC INJURY INITIAL ENC Z0389 ENCOUNTER 10-09-2016 [facility] OT MEDICAL SUSPCT DZ & IMAGING ASS COND RULED OUT R2233 LOC 09-07-2016 A Angeles CRUZ SWELLING PSC MASS & LUMP UPPER LIMB BILATERAL K811 CHRONIC 07-05-2016 [facility] CHOLECYSTIT PHYSICIANS IS GROUP [id number] ENCOUNTER 07-05-2016 [facility] P AL CARIOVASCUL AR EXAM M73344 ENCOUNTER 07-05-2016 [facility] P AL RESPIRATORY EXAM L35110 ENCOUNTER 07-05-2016 [facility] P AL LABORATORY EXAM J309 ALLERGIC 05-31-2016 A Angeles CRUZ RHINITIS [facility] UNSPECIFIED H7013 CHRONIC 05-26-2016 [facility] MASTOIDITIS PHYSICIANS BILATERAL GROUP H6522 CHRONIC 05-11-2016 [facility]OUS [facility] OTITIS INC MEDIA LEFT EAR R4702 DYSPHASIA 05-11-2016 [facility] R7989 OTHER SPEC 05-11-2016 [facility] ABNORMAL [facility] FINDINGS [facility]ING ASS BLOOD CHEMISTRY R945 ABNORMAL 05-11-2016 [facility] LIVER INC FUNCTION STUDIES E876 HYPOKALEMIA 05-08-2016 [facility] R21 RASH AND 04-07-2016 [facility] OTHER YOGESH NONSPECIFIC HOLDINGS SKIN ERUPTION R0781 PLEURODYNIA 02-22-2016 [facility] R252 CRAMP AND 02-17-2016 [facility] SPASM YOGESH HOLDINGS R5383 OTHER 02-17-2016 [facility] FATIGUE YOGESH HOLDINGS R0981 NASAL 01-04-2016 A Angeles CRUZ CONGESTION PSC Z1231 ENCOUNTER 11-18-2015 [facility]EN[facility]AMMO MALIG IMAGING ASS NEOPLASM BREAST H905 UNSPECIFIED 11-11-2015 [facility] PHYSICIANS SENSORINEUR GROUP AL HEARING LOSS L55776 ENCOUNTER 11-05-2015 [facility] RETAIL ASSOCIATE EXAM YOGESH GENERAL RTN HOLDINGS W/O ABNORMAL FIND H6092 UNSPECIFIED 09-22-2015 [facility] OTITIS PHYSICIANS EXTERNA GROUP LEFT EAR H7012 CHRONIC 09-22-2015 [facility] MASTOIDITIS PHYSICIANS LEFT EAR GROUP [id number] SPONDYLOSIS 07-01-2015 [facility] W/O PHYSICIANS MYELOPATH/R GROUP ADICULOPATH Y CERV RGN 4011 ESSENTIAL 03-05-2015 A Angeles PATEL MD PSC N, BENIGN 12612 03-05-2015 [facility] TRANSPORTAT ION SER 9331 FOREIGN 02-22-2015 [facility] BODY IN PHYSICIANS LARYNX GROUP 4019 UNSPECIFIED 02-15-2015 [facility] ESSENTIAL [facility] HYPERTENSIO INC N 5303 STRICTURE 02-15-2015 [facility] AND [facility] STENOSIS OF INC ESOPHAGUS 78704 OTHER 02-15-2015 [facility] SY[facility] MEDICAL INVOLVING IMAGING ASS HEAD AND NECK 43581 DYSPHAGIA 02-15-2015 [facility] UNSPECIFIED PHYSICIANS, PLLC V140 PERSONAL 02-15-2015 [facility] HISTORY OF [facility] ALLERGY TO INC PENICILLIN 3814 NONSUPPRATV 01-20-2015 [facility] OTITIS PHYSICIANS MEDIA NOT GROUP SPEC ACUT/CHRON 3839 UNSPECIFIED 01-20-2015 [facility] PHYSICIANS MASTOIDITIS GROUP 4730 CHRONIC 01-20-2015 [facility] MAXILLARY PHYSICIANS SINUSITIS GROUP 2449 UNSPECIFIED 11-24-2014 [facility] HYPOTHYROID ISM 69820 UNSPEC 11-24-2014 A nAgeles CRUZ EPILEPSY PSC WITHOUT MENTION INTRACT EPILEPSY 4779 ALLERGIC 11-24-2014 A Angeles CRUZ RHINITIS PSC CAUSE UNSPECIFIED 3804 IMPACTED 09-10-2014 YOON KERI CERUMEN 3831 CHRONIC 09-10-2014 [facility] K[facility]I MASTOIDITIS 91570 ESOPHAGEAL 07-02-2014 A Angeles CRUZ REFLUX PSC 13693 SIMPLE/UNSP 04-09-2014 [facility] IFIED [facility] P SEROUS OTITIS MEDIA 33473 UNSPECIFIED 04-09-2014 [facility] [place] [address] CHOLESTEATO 04-09-2014 [facility] CO OF [facility] P AND MASTOID 83313 OTHER CHEST 01-20-2014 FLORENTINO MARTY PAIN 3674 PRESBYOPIA 12-12-2013 SCIFRES ANG 4770 ALLERGIC 10-31-2013 FLORENTINO MARTY RHINITIS DUE TO POLLEN V7612 OTHER 09-30-2013 [facility] SCREENING [facility] MAMMOGRAM INC 2859 UNSPECIFIED 09-15-2013 [facility] 4610 ACUTE 09-04-2013 [facility] KERI MAXILLARY SINUSITIS 4612 ACUTE 09-04-2013 [facility] K[facility] ETHMOIDAL SINUSITIS 7840 HEADACHE 08-07-2013 FLORENTINO MARTY 81960 CRAMP OF 05-01-2013 FLORENTINO MARTY LIMB 14089 HYPERTENSIO 02-12-2013 Maxine CELESTIN MD PSC 71175 OTHER 02-11-2013 [facility] CONVULSIONS [facility] INC 42752 OBSTRUCTIVE 2012 KARRIE SAAVEDRA SLEEP APNEA 34964 ASTHMA, 12-20-2012 [facility] UNSPECIFIED [facility] , INC UNSPECIFIED STATUS 9351 FOREIGN 12-20-2012 WEHRMAN III BODY IN ADDIS ESOPHAGUS 2409 GOITER, 12-12-2012 [facility] UNSPECIFIED [facility] INC 2459 UNSPECIFIED 12-09-2012 KARRIE SAAVEDRA THYROIDITIS 7881 DYSURIA 10-14-2012 [facility] DON 81396 BLISTERS 10-14-2012 [facility] WITH DON EPIDERMAL LOSS DUE TO BURN-BREAST 2724 OTHER AND 09-12-2012 [facility] UNSPECIFIED [facility] INC HYPERLIPIDE GWEN V7231 ROUTINE 09-06-2012 [facility] GYNECOLOGIC DON AL EXAMINATION 34604 OSTEOARTHRO 06-27-2012 [facility] S UNSPEC HEALTH WHETHER AGENCY GEN/LOC UNSPEC SITE 7812 ABNORMALITY 06-27-2012 [facility] HEALTH AGENCY 7993 UNSPECIFIED 06-27-2012 [facility] DEBILITY HEALTH AGENCY V571 OTHER 06-27-2012 [facility] PHYSICAL HEALTH THERAPY AGENCY 6259 UNSPEC 06-08-2012 [facility] IM[facility]ING ASS W/FEMALE GENITAL ORGANS 63826 PAIN IN 06-08-2012 [facility] PELVIC IMAGING ASS REGION AND THIGH 7295 PAIN IN 06-08-2012 [facility] SOFT AMBULANCE TISSUES OF SERVICE LIMB 8439 SPRAIN&STRA 06-08-2012 WEHRMAN III IN OF ADDIS UNSPECIFIED SITE OF HIP&THIGH E8889 UNSPECIFIED 06-08-2012 [facility] SERVICE 6980 PRURITUS 06-05-2012 [place] 64728 OSTEOARTHRO 06-04-2012 [facility] S UNSPEC MEDICAL GEN/LOC IMAGING ASS PELV REGION&THIG H 98484 DEGEN 06-04-2012 [facility] LUMBAR/LUMB MEDICAL OSACRAL IMAGING ASS INTERVERTEB RAL DISC 7243 SCIATICA 06-04-2012 [facility] INC 8472 LUMBAR 06-04-2012 [facility] SPRAIN AND [facility] STRAIN INC 7821 RASH AND 05-31-2012 [facility] OTHER DON NONSPECIFIC SKIN ERUPTION 47171 PAIN IN 05-03-2012 [facility] JOINT, DON SHOULDER REGION 4554 EXTERNAL 02-23-2012 [facility] THROMBOSED DON HEMORRHOIDS 931 FOREIGN 01-29-2012 [place] [place] 57040 HEMANGIOMA 01-05-2012 AHNKS OF SKIN AND DON SUBCUTANEOU S TISSUE 3813 OTHER&UNSPE 07-12-2011 [facility] C CHRONIC DON NONSUPPURAT [place] OTITIS MEDIA 17057 LOC-REL 04-11-2011 NEW EPILEPSY & [place] ES W/SPS CLINIC PSC W/O INTRACTABL EPIL 318 OTHER 03-27-2011 SUPPORT SPECIFIED SOURCE INTELLECTUA L DISABILITIE S 2761 HYPOSMOLALI 2010 [facility] T[facility] AND/OR EMERGENCY HYPONATREMI SERVICES A 7802 SYNCOPE AND 2010 [facility] COLLAPSE AMBULANCE SERVICE 18775 NAUSEA WITH 2010 [facility] VOMITING [facility] INC 27444 VOMITING 2010 [facility] ALONE [facility]ERGENCY SERVICES 4739 UNSPECIFIED 12-18-2010 [facility] SINUSITIS EMERGENCY SERVICES 7804 DIZZINESS 12-18-2010 [facility] AND EMERGENCY GIDDINESS SERVICES 7862 COUGH 12-18-2010 [facility] 7906 OTHER 10-04-2010 [facility] ABNORMAL [facility] BLOOD INC CHEMISTRY 80016 OTHER 09-27-2010 NEW CONDITIONS [place] [facility] PSC 460 ACUTE 09-19-2010 [facility] NASOPHARYNG DON ITIS 7810 ABNORMAL 08-20-2010 [facility] INVOLUNTARY AMBULANCE MOVEMENTS SERVICE 33034 MUSCLE 05-13-2010 [facility] WEAKNESS [facility] (GENERALIZE SERVICES D) 58196 OTHER 05-13-2010 [facility] MALAISE AND [facility] FATIGUE INC 06308 HYPERSOMNIA 04-08-2010 MARTINES WITH SLEEP RUPERT APNEA UNSPECIFIED 83301 HYPERSOMNIA 04-08-2010 MARTINES RUPERT UNSPECIFIED 36582 UNSPECIFIED 03-31-2010 [facility] VIC INFECTIVE OTITIS EXTERNA 5589 OTH&UNSPEC 03-18-2010 [facility] NONINFECTIO DON US GASTROENTER ITIS&COLITI S 7847 EPISTAXIS 03-03-2010 YOON KERI 42739 ABDOMINAL 02-11-2010 [facility] PAIN RIGHT DON LOWER QUADRANT 58190 ABDOMINAL 02-11-2010 [facility] PAIN, LEFT DON LOWER QUADRANT 3829 UNSPECIFIED 12-22-2009 [facility], OTITIS DON R MEDIA 16717 THYROTOX 11-02-2009 KARRIE, W/O KRISTI Akhtar GOITER/OTH CAUSE W/O CRISIS 93156 OPEN 08-19-2009 [facility] FRACTURE HOME MED OTHER [employer] SPECIFIED PART PELVIS OTHER 02840 EPILEPSY 08-13-2009 DESHAUN HANKS PG GEOVANNA Casiano /PP UNSPEC EPIS CARE/NA 20325 REFLUX 07-28-2009 [facility] ESOPHAGITIS GEOVANNA R 31742 UNSPECIFIED 07-28-2009 GEOVANNA HANKS CONSTIPATIO N 94182 CLOSED 07-27-2009 [facility] FRACTURE [facility] UNSPECIFIED INC PART RADIUS W/ULNA 2630 MALNUTRITIO 07-13-2009 [facility] CO N [facility] DEGREE 66004 OTHER 07-13-2009 [facility] CLOSED [facility]ICAL FRACTURES IMAGING OF DISTAL ASSOCIATES END OF RADIUS 95451 CLOSED 07-13-2009 [facility] FRACTURE OF TRACY DISTAL END OF ULNA V653 DIETARY 07-13-2009 [facility] COUN[facility] 462 ACUTE 03-17-2009 LATONYA PHARYNGITIS GEOVANNA R 4660 ACUTE 03-17-2009 [place] [address] CLOSED 03-09-2009 [facility] FRACTURE OF [facility] INC UNSPECIFIED PART OF RADIUS 19866 UNSPECIFIED 03-09-2009 [facility] CLOSED [facility]ICAL FRACTURE OF IMAGING CARPAL ASSOCIATES BONE 52406 UNSPECIFIED 02-03-2009 LATONYA SITE OF GEOVANNA Casiano ANKLE SPRAIN AND STRAIN 57774 CLOSED 01-12-2009 [facility] COLLES [facility] FRACTURE INC 81616 CLOSED 01-08-2009 [facility] FRACTURE OF [facility] LOWER END INC OF RADIUS WITH ULNA E8490 PLACE OF 01-07-2009 [facility] OCCURRENCE, MEDICAL HOME IMAGING ASSOCIATES E8842 ACCIDENTAL 01-07-2009 [facility] FALL FROM MEDICAL CHAIR IMAGING ASSOCIATES 920 CONTUSION 12-04-2008 [facility] FACE AMBULANCE SCALP AND SERVICE NECK EXCEPT EYE 51171 OTHER 11-05-2008 COMBINED ABNORMAL PHYSICIANS GLUCOSE LAB V5869 LONG-TERM 10-23-2008 [facility] (CURRENT) HEALTH USE OF CARE INC OTHER MEDICATIONS V5883 ENCOUNTER 10-23-2008 [facility] THERAPEUTIC CARE INC DRUG MONITORING 5070 ACUTE URIS 09-15-2008 MIKE H[facility]KS UNSPECIFIED SITE 7823 EDEMA 01-08-2008 GEOVANNA HANKS 7242 LUMBAGO 01-02-2008 [facility] INC 7245 UNSPECIFIED 01-02-2008 Seiratherm 7859 OTHER 12-05-2007 [facility] MEDICAL INVOLVING IMAGING CARDIOVASCU ASSOCIATES LAR SYSTEM 7820 DISTURBANCE 11-25-2007 [facility], OF SKIN DON R SENSATION 8088 UNSPECIFIED 11-13-2007 [facility], CLOSED DON R FRACTURE OF PELVIS 4618 OTHER ACUTE 09-18-2007 LATONYA, SINUSITIS DON R 808 FRACTURE OF 09-02-2007 [facility] P[facility]VIS HOME MED EQUIP. [facility] 3489 UNSPECIFIED 08-29-2007 [facility] CONDITION HEALTH OF BRAIN AGENCY V1588 PERSONAL 08-29-2007 [facility] HISTORY OF HEALTH FALL AGENCY 8208 CLOSED 07-31-2007 [facility] FRACTURE AMBULANCE UNSPECIFIED SERVICE PART NECK FEMUR 8082 CLOSED 07-27-2007 [facility] FRACTURE OF MEDICAL PUBIS IMAGING ASSOCIATES 36351 UNS ADVRS 07-27-2007 [facility] EFF OTH RX [facility] MEDICINAL&B INC IOLOGICAL SBSTNC 7937 NONSPC ABN 07-26-2007 [facility] FIND RAD RADIOLOGY & OTH EXM ASSOCIATES MUSCULSKELT PSC L SYS Medications Na ND Rx Da Fi Fi Am Da Di Ph RX Ph St me C No te ll ll ou ys ag ar # ys at rm s nt no ma ic us Or Da si cy ia de te s n re d OX 00 08 09 25 30 00 HO Ac CA 05 -1 -1 0. 00 ME ti RB 40 7- 5- 00 06 TO ve AZ 19 20 20 0 09 WN EP 95 17 17 25 IN 9 76 PH E AR 30 MA 0 CY MG /5 OF ML CY NT SEPULVEDA HI SP AN A LE 00 08 09 90 90 00 HO Ac VO 52 -2 -1 .0 00 ME ti TH 71 2- 5- 00 06 TO ve YR 34 20 20 07 WN OX 20 17 17 62 IN 1 92 PH E AR 50 MA CY MC G OF TA BL CY ET NT HI AN A DO 68 07 08 20 [...] 07 08 7. 10 00 HO Ac SD 06 -1 -0 50 00 ME ti [...] 00 7- 0- 00 06 TO ve SD 51 20 20 07 WN IL 80 [...] UL E CY NT HI AN A OX 00 04 06 25 30 00 HO Ac CA 05 -2 -1 0. 00 ME ti RB 40 4- 6- 00 06 TO ve AZ 19 20 20 0 08 WN EP 95 17 17 56 IN 9 64 PH E AR 30 MA 0 CY MG /5 OF ML CY NT SEPULVEDA HI SP AN A LO 45 05 06 30 30 00 HO Ac RA 80 -2 -1 .0 00 ME ti TA 20 2- 6- 00 06 TO ve DI 65 20 20 08 WN NE 08 17 17 74 7 96 PH 10 AR MA MG CY TA OF BL ET CY NT HI AN A LI 68 04 05 30 30 00 HO Ac SI 18 -2 -2 .0 00 ME ti NO 00 7- 6- 00 06 TO ve SD 51 20 20 07 WN IL 80 17 17 95 -H [address] AR Z MA 10 CY -1 2. OF 5 MG CY NT TA HI B AN A SE 24 04 05 30 30 00 HO Ac NN 38 -2 -2 .0 00 ME ti A- 50 7- 6- 00 06 TO ve LA 40 20 20 07 WN X 47 17 17 04 8. 8 98 PH 6 AR MG MA CY TA BL OF ET CY NT HI AN A AM 68 04 05 30 30 00 HO Ac LO 38 -2 -2 .0 00 ME ti DI 20 8- 6- 00 06 TO ve PI 12 20 20 07 WN NE 30 17 17 62 5 75 PH BE AR SY MA LA CY TE OF 10 CY MG NT HI TA AN B A NE 61 04 05 10 10 [...] OF ET CY NT HI AN A LA 24 03 03 25 25 00 HO Ac XA 38 -0 -3 .0 00 ME ti TI 50 6- 1- 00 06 TO ve VE 90 20 20 07 WN 36 17 17 43 EC 3 75 PH 5 AR MA MG CY TA OF BL ET CY NT HI AN A LI 68 03 03 30 30 00 HO Ac SI 18 -0 -3 .0 00 ME ti NO 00 6- 1- 00 06 TO ve SD 51 20 20 07 WN IL 80 17 17 95 -H [address] AR Z MA 10 CY -1 2. OF 5 MG CY NT TA HI B AN A LE 00 02 03 90 [...] 00 6- 0- 00 06 TO ve SD 51 20 20 07 WN IL 80 [...] OF CY NT HI AN A 64 02 02 [...] ET NT HI AN A 60 07 01 [...] ET NT HI AN A LO 45 10 10 [address] Ac RA 80 -1 -[address] 56 EP ti TA 20 8- 8- 00 SI 12 HE ve DI 65 20 20 DE NS NE 08 11 11 7 PH DO 10 AR N MA R MG CY TA OF BL ET CY NT HI AN A ME 00 10 10 0 [address] Ac TH 78 -1 -[address] 56 EP ti YL 15 8- 8- 00 SI 11 HE ve SD 02 20 20 DE NS ED 20 11 11 NI 7 PH DO SO AR N LO MA R NE CY 4 OF MG CY DO NT SE HI PK AN A LE 00 05 09 5 [...] 3- 2- 00 SI 47 HE ve SD 75 20 20 DE NS IL 98 [...] 3- 1- 00 SI 47 HE ve SD 75 20 20 DE NS IL 98 [...] ON 68 06 06 0 12 30 WA 71 WE Ac DA 46 -2 -2 .0 L- 24 HR ti NS 20 6- 6- 00 MA 67 MA ve ET 10 20 20 RT 5 N RO 53 11 11 II N 0 PH I HC AR WI L MA LL 4 CY IA MG # M E TA 10 BL 05 ET 91 SD 68 06 06 0 15 3 WA 71 WE Ac OM 38 -2 -2 .0 L- 24 HR ti ET 20 6- 6- 00 MA 67 MA ve UGALDE 04 20 20 RT 6 N ZI 10 11 11 II NE 1 PH I AR WI 25 MA LL CY IA MG # M E TA 10 BL 05 ET 91 ME 59 06 06 0 20 10 WA 71 WE Ac CL 74 -2 -2 .0 [...] 09 11 11 E 9 PH DO SD AR N OP MA R CY 50 [...] CY CA NT P HI AN A FA 16 09 11 [...] NT HI AN A LE 00 08 11 [...] P HI AN A LE 00 08 10 [...] ET NT HI AN A NE 24 10 10 [...] CY SEPULVEDA NT SP HI AN A FA 16 09 09 [...] P HI AN A LE 00 08 09 [address] Ac VO 37 -1 -[address] 65 EP ti TH 81 0- 9- 00 SI 65 HE ve YR 80 20 20 DE NS OX 50 10 10 IN 1 PH DO E AR N 75 MA R CY MC G OF TA BL CY ET NT HI AN A FL 00 09 09 0 16 30 EA 19 LA Ac UT 05 -0 -[address] 05 WS ti IC 43 9- 9- 00 SI 84 ON ve 27 20 20 DE ON 09 [address] SD AR OR OP MA G CY 50 OF MC G CY SP NT RA HI Y AN A LI 00 12 08 [address] Ac SI 17 -0 -[address] 37 EP ti NO 23 1- - 00 SI 44 HE ve SD 75 20 20 DE NS IL 96 [...] 1- 9- 00 SI 44 HE ve SD 75 20 20 DE NS IL 96 [...] 56 WS ti TH 81 1- 7- 00 SI 48 ON ve YR 81 [...] 1- 0- 00 SI 44 HE ve SD 75 20 20 DE NS IL 96 [...] NO 23 1 SI 44 HE ve SD 75 20 20 DE NS IL 96 09 10 0 PH DO 10 AR N MA R MG CY TA OF BL ET CY NT HI AN A PH 51 02 05 [address] Ac EN 67 -1 -[address] 44 EP ti YT 24 9- 7- 00 SI 55 HE ve OI 11 20 20 DE NS N 10 10 10 SO 3 PH DO D AR N EX MA R T CY 10 0 OF MG CY CA NT P HI AN A NE 24 05 05 0 10 10 EA 17 LA Ac OM 20 -1 -[address] 56 WS ti YC 80 1 00 SI 49 ON ve IN 63 20 20 DE -P 11 [address] YM AR OR YX MA G IN CY -H C OF EA R CY SO NT LN HI AN A LE 00 05 05 5 30 30 EA 17 LA Ac VO 37 -1 -[address] 56 WS ti TH 81 1- 00 SI 48 ON ve YR [...] 2- 3- 00 SI 51 ON ve SD 02 20 20 DE ED 20 10 [address] SO AR OR LO MA G NE CY 4 OF MG CY DO NT SE HI PK AN A LI 00 12 04 [address] Ac SI 17 -0 -[address] 37 EP ti NO 23 1 SI 44 HE ve SD 75 20 20 DE NS IL 96 [...] 2- 2- 00 SI 51 ON ve SD 02 20 20 DE ED 20 10 [...] 37 EP ti NO 23 1- - SI 44 HE ve SD 75 20 20 DE NS [place] 96 09 10 0 PH DO 10 AR N MA R MG CY TA OF BL ET CY NT HI AN A LE 00 02 03 [address] Ac VO 37 -1 -[address] 44 EP ti TH 81 9- 9- 00 SI 56 HE ve YR 81 20 20 DE NS OX 50 10 10 IN 1 PH DO E AR N 15 MA R 0 CY MC G OF TA BL CY ET NT HI AN A LE 00 02 02 00 [...] CY BL NT ET HI AN A NI 00 02 02 [address] Ac TR 18 -1 -[address] 44 EP ti OF 50 9- 6- 00 SI 54 HE ve UR 12 20 20 DE NS AN 20 10 10 TO 1 PH DO IN AR N MA R MO CY NO -M OF CR CY NT 10 HI 0 AN MG A PH 51 02 02 [address] Ac EN 67 -1 -[address] 44 EP ti YT 24 9- 6- 00 SI 55 HE ve OI 11 20 20 DE NS N 10 10 10 SO 3 PH DO D AR N EX MA R T CY 10 0 OF MG CY NT CA HI P AN A PO 00 02 02 [address] Ac LY 57 -0 -[address] 22 EP ti ET 40 3- 1- 00 SI 13 HE ve HY 41 [...] CY OF CY NT HI AN A FA 16 02 02 [address] Ac MO 71 -0 -[address] 22 EP ti TI 40 3- 1- 00 SI 14 HE ve DI 36 20 20 DE NS NE 10 10 10 4 PH DO 20 AR N MA R MG CY TA OF BL CY ET NT HI AN A LI 00 12 01 02 [address] Ac SI 17 -0 -[address] 37 EP ti NO 23 1- 8- 00 SI 44 HE ve SD 75 20 20 DE NS IL 96 [...] CA HI P AN A AZ 00 01 01 00 6. [address] Ac IT 09 -1 -[address] 94 EP ti HR 37 3- 8- 0 SI 72 HE ve OM 14 20 20 DE NS YC 61 10 10 IN 8 PH DO AR N 25 MA R 0 CY MG OF TA CY BL NT ET HI AN A LE 00 12 01 02 [address] Ac VO 37 -0 -[address] 37 EP ti TH 81 1- 8- 00 SI 43 HE ve YR 81 20 20 DE NS OX 90 09 10 IN 1 PH DO E AR N 20 MA R 0 CY MC G OF TA CY BL NT ET HI AN A 60 01 01 00 [address] Ac 25 -1 -[address] 94 EP ti 80 3- 8- 00 SI 73 HE ve 23 20 20 0 DE NS 91 10 10 6 PH DO AR N MA R CY OF CY NT HI AN A PI 00 06 25 99 30 30 EA 16 RO Ac RO 09 -1 -[address] 02 LA ti XI 30 9 8 SI 65 ND ve CA 75 20 20 DE O M 70 10 10 CH 20 5 PH EN AR G MG MA PS CY C CA PS OF UL CY E NT HI AN A LE 00 12 01 01 [address] Ac VO 37 -0 -[address] 37 EP ti TH 81 1 4 SI 43 HE ve YR 81 20 20 DE NS OX 90 09 10 IN 1 PH DO E AR N 20 MA R 0 CY MC G OF TA CY BL NT ET HI AN A PH 51 12 01 00 [address] Ac EN 67 -2 -[address] 76 EP ti YT 24 9 4 00 SI 33 HE ve OI 11 20 20 0 DE NS N 10 09 10 SO 3 PH DO D AR N EX MA R T CY 10 0 OF MG CY NT CA HI P AN A LI 00 12 01 [address] Ac SI 17 -0 -1 .0 ST 37 EP ti NO 23 1- 4- SI 44 HE ve SD 75 20 20 DE NS IL 96 09 10 0 PH DO 10 AR N MA R MG CY TA OF BL CY ET NT HI AN A PH 51 07 12 04 [...] 1- 7- 00 SI 44 HE ve SD 75 20 20 DE NS IL 96 [...] 3- 9- 00 SI 09 HE ve SD 75 20 20 DE NS IL 96 09 09 0 PH DO 10 AR N MA R MG CY TA OF BL CY ET NT HI AN A LE 00 09 11 02 [...] ET HI AN A PH 51 07 11 [...] NT CA HI P AN A 00 10 10 00 10 [...] CY NT HI AN A PH 51 07 [...] CA HI P AN A LO 60 09 10 00 [address] Ac RA 50 -2 -[address] 38 EP ti TA 50 3- 8- 00 SI 91 HE ve DI 14 20 20 DE NS NE 70 09 09 8 PH DO 10 AR N MA R MG CY TA OF BL CY ET NT HI AN A ME 00 09 09 00 [...] ET HI AN A PH 51 02 06 03 [...] HI P AN A LE 00 01 05 03 [...] ET NT HI AN A PH 51 09 01 [...] HI P AN A LE 00 09 01 03 [...] 5- 4- 00 SI 66 HE ve SD 02 20 20 DE NS ED 20 [...] NT CR HI EA AN M A AV 00 11 12 00 7. [...] ET HI AN A PH 51 09 12 02 90 [...] OL LL 33 C 50 PO WD MA 00 02 04 00 20 5 ME 25 No Ac PA 90 -0 -1 .0 D 42 t ti P 41 6- 7- 00 CA 76 Av ve 50 98 20 20 RE 5 ai 0 86 08 08 la MG 1 PH bl AR e TA MA BL CY ET LL C BA 00 02 04 00 [...] 10 0 LL MG C CA P 00 02 04 00 20 5 ME 25 No Ac 60 -0 -1 .0 D 42 t ti 35 6- 7- 00 CA 76 Av ve 46 20 20 RE 7 ai 83 08 08 la 2 PH bl AR e MA CY LL C BI 00 02 04 00 3. 9 [...] 00 10 15 ME 25 No Ac SD 06 -0 -1 .0 D 42 t ti O 58 6- 7- 00 CA 77 Av ve HC 53 20 20 RE 2 ai 11 08 08 la OT 0 PH bl IC AR e MA SEPULVEDA CY SP EN LL SI C ON PH 51 03 04 00 90 30 [...] CA HI P AN A ME 00 03 04 00 21 6 EA 97 No Ac TH 78 -2 -[address] 36 t ti YL 15 6- 0- 00 SI 22 Av ve SD 02 20 20 DE ai ED 20 08 08 la NI 7 PH bl SO AR e LO MA NE CY 4 OF MG CY NT DO HI SE AN PK A NA 00 03 04 00 17 17 EA 97 No Ac SO 08 -2 -[address] 36 t ti NE 51 6- 0- 00 SI 24 Av ve X 28 20 20 DE ai 50 80 08 08 la 1 PH bl MC AR e G MA NA CY SA L OF SP CY RA NT Y HI AN A LO 60 03 04 00 20 20 EA 97 No Ac RA 50 -2 -[address] 36 t ti TA 50 6- 0- 00 SI 23 Av ve DI 14 20 20 DE ai NE 70 08 08 la 1 PH bl 10 AR e MA MG CY TA OF BL CY ET NT HI AN A TH 00 02 04 00 4. 4 ME 25 No Ac ER 90 -1 -0 00 D 60 t ti A 45 4- 7- 0 CA 56 Av ve M 49 [address] 26 08 08 la US 1 PH bl AR e TA MA BL CY ET LL C PH 51 03 04 00 90 30 [...] CA P MA 00 02 04 00 1. 1 [...] 00 27 14 ME 25 No Ac SD 46 -0 -0 .0 D 42 t ti OX 20 6- 7- 00 CA 76 Av ve EN 19 20 20 RE 1 ai 00 08 08 la 50 5 PH bl 0 AR e MG MA CY TA BL LL ET C DI 00 02 04 00 8. 8 ME 25 No Ac PH 90 -1 -0 00 D 54 t ti EN 45 1- 7- 0 CA 21 Av ve HY 30 [address] 66 08 08 la AM 1 PH bl IN AR e E MA 25 CY MG LL C CA PS UL E PO 51 02 04 00 25 10 ME 25 No Ac LY 99 -2 -0 5. D 83 t ti ET 10 5- 7- 00 CA 42 Av ve HY 45 20 20 0 RE 4 ai LE 75 08 08 la NE 8 PH bl AR e GL MA YC CY OL LL 33 C 50 PO WD NY 51 02 04 00 15 3 ME [address] 67 -2 -0 .0 D 82 t ti AT 21 3- 7- 00 CA 42 Av ve IN 28 20 20 RE 2 ai 90 08 08 la 10 1 PH bl 0, AR e 00 MA 0 CY UN IT LL /G C M CR EA M PO 51 02 03 00 25 15 ME 25 No Ac LY 99 -0 -2 5. D 42 t ti ET 10 6- 6- 00 CA 76 Av ve HY 45 20 20 0 RE 3 ai LE 75 08 08 la NE 8 PH bl AR e GL MA YC CY OL LL 33 C 50 PO WD DI 00 02 03 00 30 30 ME 25 No Ac PH 90 -1 -2 .0 D 54 t ti EN 45 1- 6- 00 CA 21 Av ve HY 30 [address] 66 08 08 la AM 1 PH bl IN AR e E MA 25 CY MG LL C CA PS UL E BI 00 02 03 00 3. 9 ME 25 No Ac SA 71 -0 -2 00 D 42 t ti C- 30 6- 6- 0 CA 76 Av ve EV 10 20 20 RE 8 ai AC 90 08 08 la 5 PH bl 10 AR e MA MG CY SEPULVEDA LL PP C OS IT OR Y 00 01 03 00 7. 7 EA [...] TA MA BL CY ET LL C MA 00 02 03 00 20 5 ME 25 No Ac PA 90 -0 -2 .0 D 42 t ti P 41 6- 6- 00 CA 76 Av ve 50 98 20 20 RE 5 ai 0 86 08 08 la MG 1 PH bl AR e TA MA BL CY ET LL C NA 68 02 03 00 60 30 ME 25 No Ac SD 46 -0 -2 .0 D 42 t ti OX 20 6- 6- 00 CA 76 Av ve EN 19 20 20 RE 1 ai 00 08 08 la 50 5 PH bl 0 AR e MG MA CY TA BL LL ET C 00 02 03 00 20 5 ME 25 No Ac 60 -0 -2 .0 D 42 t ti 35 6- 6- 00 CA 76 Av ve 46 20 20 RE 7 ai 83 08 08 la 2 PH bl AR e MA CY LL C PH 62 02 03 00 60 30 ME 25 No Ac EN 75 -0 -2 .0 D 42 t ti YT 60 6- 6- 00 CA 76 Av ve OI 40 20 20 RE 4 ai N 20 08 08 la SO 3 PH bl D AR e EX MA T CY 10 0 LL MG C CA P CI 00 02 03 00 10 15 ME 25 No Ac SD 06 -0 -2 .0 D 42 t ti O 58 6- 6- 00 CA 77 Av ve HC 53 20 20 RE 2 ai 11 08 08 la OT 0 PH bl IC AR e MA SEPULVEDA CY SP EN LL SI C ON BA 00 02 03 00 15 3 ME 25 No Ac CI 16 -0 -2 .0 D 42 t ti TR 80 6- 6- 00 CA 77 Av ve AC 02 20 20 RE 0 ai IN 13 08 08 la -P 5 PH bl OL AR e YM MA YX CY IN LL OI C NT ME NT PH 51 12 03 01 12 30 EA 96 No Ac EN 67 -2 -[address] 05 t ti YT 24 1- 5- 00 SI 47 Av ve OI 11 20 20 0 DE ai N 10 07 08 la SO 3 PH bl D AR e EX MA T CY 10 0 OF MG CY NT CA HI P AN A Procedures Procedure DOS Code Location Performer Comment COMPREHEN 75301 [facility] [place], [place], [employer]. INC. PANEL NONEMERG A0120 FEDERATED FEDERATED TRNSPRT: 7 MINI-BUS TRANSPORT TRANSPORT MTN ATION SER [facility] SER ARE[facility]/OTH SYS NONEMERG A0120 FEDERATED FEDERATED TRNSPRT: 7 MINI-BUS TRANSPORT TRANSPORT MTN [facility] SER [facility] SER AREA/OTH SYS LIPID 25853 A C KILPELA PANEL 7 NANCY FIELDS PSC COLLECTIO 44589 A C ARMINDA N VENOUS 7 NANCY FIEL[place] [address] [facility] FREE 7 [facility]ESH YOGESH THYROXINE HOLDINGS HOLDINGS DRUG 45587 [facility] MAX SCREEN 7 [facility]OGESH YOGESH QUANTITAT HOLDINGS HOLDINGS [place] OXCARBAZE [place]AL 07370 [facility] PANEL HOLDINGS HOLDINGS OPHTH 65471 [facility] 7 XM&EVAL COMPRHNSV ESTAB PT 1/> NONEMERG A0120 FEDERATED FEDERATED TRNSPRT: 7 MINI-BUS TRANSPORT TRANSPORT MTN ATION SER ATION SER AREA/OTH SYS UNCLASSIF J3490 CA[facility]O MONTEIRO IED DRUGS 7 [facility] INC INC THER 05174 CAYETANO MONTEIRO PROPH/DX 7 [facility] NJX IV INC INC PUSH SINGLE/1S T SBST/DRUG RADIOLOGI 11691 [place] [facility] 7 MEDICAL EXAMINATI IMAGING ON CHEST ASS SINGLE VIEW FRONTAL NONEMERG A0120 FEDERATED FEDERATED TRNSPRT: 7 MINI-BUS TRANSPORT TRANSPORT MTN ATION SER ATION SER AREA/OTH SYS NONEMERG A0120 FEDERATED FEDERATED TRNSPRT: 7 MINI-BUS TRANSPORT TRANSPORT MTN ATION SER ATION SER AREA/OTH SYS COMPREHEN 88835 CAYETANO MONTEIRO SIVE 7 [facility] METABOLIC INC INC PANEL COLLECTIO 87601 CA[facility]O MONTEIRO N VENOUS 7 [facility] BLOOD INC INC VENIPUNCT URE ECG 98660 CAYETANO GARCIA ROUTINE 7 [facility] W/LEAST P 12 LDS I&R ONLY ECG 49117 CAYETANO MONTEIRO ROUTINE 7 [facility] ECG INC INC W/LEAST 12 LDS TRCG ONLY W/O I&R THERAPEUT 18375 Maxine TREVINO 6 NANCY FIELDS PROPHYLAC PSC TIC/DX INJECTION SUBQ/IM NONEMERG A0120 FEDERATED FEDERATED TRNSPRT: 6 MINI-BUS TRANSPORT TRANSPORT MTN ATION SER ATION SER AREA/OTH SYS UNCLASSIF J3490 CA[facility]O MONTEIRO IED DRUGS 6 [facility] INC INC HEPATOBIL 40203 CAYETANO MONTEIRO SYST 6 [facility] IMAG INC INC INC GB W/PHARMA INTERVENJ NONEMERG A0120 FEDERATED FEDERATED TRNSPRT: 6 MINI-BUS TRANSPORT TRANSPORT MTN ATION SER ATION SER AREA/OTH SYS 43096 [facility] MONTEIRO ABDOMINAL 6 [facility] REAL INC INC TIME W/IMAGE LIMITED RADEX 44252 CAYETANO MONTEIRO ESOPHAGUS 6 [facility] INC INC COLLECTIO 73847 A C KILPELA N VENOUS 6 NANCY FIELDS JEA BLOOD PSC VENIPUNCT URE NONEMERG A0120 FEDERATED FEDERATED TRNSPRT: 6 MINI-BUS TRANSPORT TRANSPORT MTN ATION SER ATION SER AREA/OTH SYS COMPREHEN 79812 [facility] SIVE 6 DIAGNOSTI DIAGNOSTI [place] [address] CAYETANO MONTEIRO THYROID 6 [facility] STIMULATI [place] [address] CAYETANO MONTEIRO FREE 6 [facility] THYROXINE INC INC NONEMERG A0120 FEDERATED FEDERATED TRNSPRT: 6 MINI-BUS TRANSPORT TRANSPORT MTN ATION SER ATION SER AREA/OTH SYS NONEMERG A0120 FEDERATED FEDERATED TRNSPRT: 6 MINI-BUS TRANSPORT TRANSPORT MTN ATION SER ATION SER AREA/OTH SYS COMPREHEN 37131 [facility] MAX [facility] MAX SIVE [facility] METABOLIC HOLDINGS HOLDINGS PANEL COLLECTIO 38834 A C KILPELA N VENOUS 6 NANCY FIELDS JEA BLOOD PSC VENIPUNCT URE NONEMERG A0120 FEDERATED FEDERATED TRNSPRT: 6 MINI-BUS TRANSPORT TRANSPORT MTN ATION SER ATION SER AREA/OTH SYS RADEX 63852 CAYETANO MONTEIRO ESOPHAGUS 6 [facility] INC INC NONEMERG A0120 FEDERATED FEDERATED TRNSPRT: 6 MINI-BUS TRANSPORT TRANSPORT MTN ATION SER [place] [address] CAYETANO MONTEIRO FREE 6 [facility] [place] [address] CAYETANO MONTEIRO THYROID 6 [facility] STIMULATI INC INC NG HORMONE TSH COLLECTIO 14043 CAYETANO MONTEIRO N VENOUS 6 [facility] BLOOD INC INC VENIPUNCT URE NONEMERG A0120 FEDERATED FEDERATED TRNSPRT: 6 MINI-BUS TRANSPORT TRANSPORT MTN ATION SER ATION SER AREA/OTH SYS NONEMERG A0120 FEDERATED FEDERATED TRNSPRT: 6 MINI-BUS TRANSPORT TRANSPORT MTN ATION SER ATION SER AREA/OTH SYS RADEX 65301 CAYETANO MONTEIRO RIBS UNI 6 [facility] W/POSTERO INC INC ANT CH MINIMUM 3 [place] [address] LAB MAX [place] MAGNESIUM 6 YOGESH E O2 HOLDINGS NONEMERG A0120 FEDERATED FEDERATED TRNSPRT: 6 MINI-BUS TRANSPORT TRANSPORT MTN ATION SER ATION [place] ARE[place] [address] LAB MAX [facility] MAX FREE 6 YOGESH YOGESH [place] [address] LAB MAX [facility] MAX THYROID 6 YOGESH YOGESH STIMULATI HOLDINGS HOLDINGS NG HORMONE TSH DRUG 55097 [facility] MAX SCREEN 6 YOGESH YOGESH QUANTITAT HOLDINGS HOLDINGS [place] OXCARBAZE PINE COMPREHEN 47757 [facility] SIVE 6 YOGESH YOGESH METABOLIC HOLDINGS HOLDINGS PANEL INJ J0702 A C FLORENTINO MARTY BETAMETHA 6 NANCY FIELDS SONE PSC ACETATE & PHOSPHATE 3 MG INJECTION J1030 A C A C 6 NANCY CRUZ MD METHYLPRE PSC PSC DNISOLONE ACETATE 40 MG NONEMERG A0120 FEDERATED FEDERATED TRNSPRT: 6 MINI-BUS TRANSPORT TRANSPORT MTN ATION SER ATION SER AREA/OTH SYS THERAPEUT 94305 A C A C IC 6 NANCY CRUZ MD PROPHYLAC PSC PSC TIC/DX INJECTION SUBQ/IM NONEMERG A0120 FEDERATED FEDERATED TRNSPRT: 6 MINI-BUS TRANSPORT TRANSPORT MTN ATION SER ATION SER AREA/OTH SYS COMPUTER- 35427 CAYETANO MONTEIRO AIDED 6 [facility] DETECTION INC INC SCREENING MAMMOGRAP HY SCREENING G0202 CAYETANO MONTEIRO 6 [facility] MAMMOGRAP INC INC HY KEVIN INCL CAD WHEN PERFORMD NONEMERG A0120 FEDERATED FEDERATED TRNSPRT: 6 MINI-BUS TRANSPORT TRANSPORT MTN ATION SER ATION SER AREA/OTH SYS NONEMERG A0120 FEDERATED FEDERATED TRNSPRT: 6 MINI-BUS TRANSPORT TRANSPORT MTN ATION SER ATION SER AREA/OTH SYS CYTP 19178 [facility] CERV/VAG 6 YOGESH YOGESH AUTO THIN HOLDINGS HOLDINGS LAYER PREP MNL SCREEN NONEMERG A0120 FEDERATED FEDERATED TRNSPRT: 6 MINI-BUS TRANSPORT TRANSPORT MTN ATION SER ATION SER AREA/OTH SYS THYROID 23280 [facility] HORM 6 YOGESH YOGESH UPTK/THYR HOLDINGS HOLDINGS OID HORMONE BINDING RATIO DRUG 08663 [facility] MAX SCREEN 6 YOGESH YOGESH QUANTITAT HOLDINGS HOLDINGS [place] [address] LAB MAX LAB MAX THYROID 6 YOGESH YOGESH STIMULATI HOLDINGS HOLDINGS NG HORMONE TSH BASIC 11247 LAB MAX LAB MAX METABOLIC 6 YOGESH YOGESH PANEL [place] [address] LAB MAX [facility] MAX THYROXINE 6 YOGESH [place] [address] LAB MAX LAB MAX TRIIODOTH 6 YOGESH YOGESH YRONINE HOLDINGS HOLDINGS T3 TOTAL TT3 LIPOPROTE 20843 [place] CRUZ IN DIR 6 NANCY OLSON TERESA HIGH PSC DENSITY CHOLESTER OL GLUCOSE 19614 A C NANCY QUANTITAT 6 NANCY OLSON BROOKLYNN BLOOD PSC XCPT REAGENT STRIP BLOOD 71028 A C NANCY COUNT 6 NANCY OLSON COMPLETE PSC AUTO&AUTO DIFRNTL WBC TRANSFERA 28916 A C NANCY SE 6 NANCY OLSON ASPARTATE PSC AMINO AST SGOT TRANSFERA 06901 A C NANCY SE 6 NANCY OLS[place] [address] A C CRUZ TRIGLYCER 6 CRUZ MD WHITNEY IDES PSC CHOLESTER 58024 Maxine CRUZ OL 6 NANCY FIELDS WHITNEY SERUM/WHO PSC LE BLOOD TOTAL NONEMERG A0120 FEDERATED FEDERATED TRNSPRT: 6 MINI-BUS [...] MTN ATION SER ATION SER AREA/OTH SYS BLOOD 32802 Maxine GOOD MARTY COUNT 5 NANCY FIELDS COMPLETE PSC AUTO&[place] [address] [facility] THYROID 5 DIAGNOSTI DIAGNOSTI STIMULATI CS CS NG HORMONE TSH BASIC 90098 [facility] METABOLIC 5 DIAGNOSTI DIAGNOSTI PANEL CS CS CALCIUM TOTAL NONEMERG A0120 FEDERATED FEDERATED TRNSPRT: 5 MINI-BUS TRANSPORT TRANSPORT MTN ATION SER ATION SER AREA/OTH SYS DIRECT G0154 [facility] SKILL [facility] AGENCY AGENCY /HOSPIC E EA 15 MIN NONEMERG A0120 FEDERATED FEDERATED TRNSPRT: 5 MINI-BUS TRANSPORT TRANSPORT MTN ATION SER ATION SER AREA/OTH SYS DIRECT G0154 [facility] SKILL [facility] AGENCY AGENCY /HOSPIC E EA 15 MIN NONEMERG A0120 FEDERATED FEDERATED TRNSPRT: 5 MINI-BUS TRANSPORT TRANSPORT MTN ATION SER ATION SER AREA/OTH SYS DIRECT G0154 [facility] SKILL 5 [facility] AGENCY AGENCY /HOSPIC E EA 15 MIN DIRECT G0154 [facility] SKILL 5 [facility] AGENCY AGENCY HH/HOSPIC E EA 15 MIN DIRECT G0154 [facility] [...] MTN ATION SER ATION SER AREA/OTH SYS RADIOLOGI 65180 [facility] 5 MEDICAL YAZ EXAMINATI IMAGING ON NECK ASS SOFT TISSUE NONEMERG A0120 FEDERATED FEDERATED TRNSPRT: 5 MINI-BUS TRANSPORT TRANSPORT MTN ATION SER ATION SER AREA/OTH SYS NONEMERG A0120 FEDERATED FEDERATED TRNSPRT: 5 MINI-BUS TRANSPORT TRANSPORT MTN ATION SER ATION SER AREA/OTH SYS NONEMERG A0120 FEDERATED FEDERATED TRNSPRT: 5 MINI-BUS TRANSPORT TRANSPORT MTN ATION SER ATION SER ARE[place] [address] [facility] THYROID 5 DIAGNOSTI DIAGNOSTI STIMULATI CS CS NG HORMONE TSH NONEMERG A0120 FEDERATED FEDERATED TRNSPRT: 5 MINI-BUS TRANSPORT TRANSPORT MTN ATION SER ATION SER AREA/OTH SYS NONEMERG A0120 FEDERATED FEDERATED TRNSPRT: 5 MINI-BUS TRANSPORT TRANSPORT MTN ATION SER ATION SER AREA/OTH SYS DEBRIDEME 19058 KARRIE YOON NT 5 KERI KERI MASTOIDEC JUANCHO CAVITY SIMPLE NONEMERG A0120 FEDERATED FEDERATED TRNSPRT: 5 MINI-BUS TRANSPORT TRANSPORT [facility] AREA/OTH SYS NONEMERG A0120 FEDERATED FEDERATED TRNSPRT: 5 MINI-BUS TRANSPORT TRANSPORT [facility] AREA/OTH SYS NONEMERG A0120 FEDERATED FEDERATED TRNSPRT: 4 TRANS MINI-BUS TRANSPORT [facility] ARE[place] [address] [facility] THYROID 4 DIAGNOSTI DIAGNOSTI STIMULATI CS CS NG HORMONE TSH NONEMERG A0120 FEDERATED FEDERATED TRNSPRT: 4 TRANS MINI-BUS TRANSPORT [facility] AREA/OTH SYS ECG 69646 CAYETANO BRONSON JR ROUTINE 4 [facility] W/LEAST P 12 LDS I&R ONLY ANESTHESI 37382 [facility] 4 ANESTH SHE EXTERNAL OF THE MIDDLE & BLUE INNER EAR W/BX N[place] [address] CAYETANO MONTEIRO XTRNL 4 [facility] AUDITORY INC INC CANAL ANES TYMPANOST 07183 CAYETANO MONTEIRO TAISHA 4 [facility] GENERAL INC INC ANESTHESI A LEVEL III 64743 [facility], PEDRITO SURG 4 [facility] SOLE PATHOLOGY GROSS&TANI ROSCOPIC EXAM INJECTION S0077 CAYETANO MONTEIRO 4 [facility] CLINDAMYC INC INC IN PHOSPHATE 300 MG DEBRIDEME 94714 KARRIE YOON NT 4 KERI KERI MASTOIDEC JUANCHO CAVITY CMPLX BASIC 50048 CAYETANO MONTEIRO METABOLIC 4 [facility] PANEL INC INC CALCIUM TOTAL BLOOD 89647 CAYETANO MONTEIRO COUNT 4 [facility] COMPLETE INC INC AUTO&AUTO DIFRNTL WBC NONEMERG A0120 FEDERATED FEDERATED TRNSPRT: 4 TRANS MINI-BUS TRANSPORT [facility] AREA/OTH SYS NONEMERG A0120 FEDERATED FEDERATED TRNSPRT: 4 TRANS MINI-BUS TRANSPORT SERVBLUEG MTN ATION SER JUSTINE AREA/OTH SYS DEBRIDEME 45214 YOON YOON NT 4 KERI KERI MASTOIDEC JUANCHO CAVITY SIMPLE NONEMERG A0120 FEDERATED FEDERATED TRNSPRT: 4 TRANS MINI-BUS TRANSPORT SERVBLUEG MTN [facility] SER JUSTINE AREA/OTH SYS BLOOD 28106 FLORENTINO MARTY FLORENTINO MARTY COUNT 4 COMPLETE AUTO&AUTO DIFRNTL WBC COMPREHEN 28951 [facility] SIVE 4 DIAGNOSTI DIAGNOSTI METABOLIC CS CS PANEL NONEMERG A0120 FEDERATED FEDERATED TRNSPRT: 4 TRANS MINI-BUS TRANSPORT SERVBLUEG MTN [facility] SER JUSTINE AREA/OTH SYS DEBRIDEME 62988 YOON YOON NT 4 KERI KERI MASTOIDEC JUANCHO CAVITY SIMPLE ECG 79242 FLORENTINO MARTY FLORENTINO MARTY ROUTINE 4 ECG W/LEAST 12 LDS W/I&R NONEMERG A0120 FEDERATED FEDERATED TRNSPRT: 4 TRANS MINI-BUS TRANSPORT SERVBLUEG MTN [facility] SER JUSTINE AREA/OTH SYS NONEMERG A0120 FEDERATED FEDERATED TRNSPRT: 4 TRANS MINI-BUS TRANSPORT SERVBLUEG MTN [facility] SER [facility] AREA/OTH SYS DEBRIDEME 65420 KARRIE YOON NT 4 KERI KERI MASTOIDEC JUANCHO CAVITY SIMPLE OPHTH 73669 [facility] 4 ANG ANG XM&EVAL COMPRHNSV ESTAB PT 1/> NONEMERG A0120 FEDERATED FEDERATED TRNSPRT: 4 TRANS MINI-BUS TRANSPORT [facility] SER [facility] AREA/OTH SYS NONEMERG A0120 FEDERATED FEDERATED TRNSPRT: 4 MINI-BUS TRANSPORT TRANSPORT MTN [facility] SER [facility] AREA/OTH SYS SCREENING G0202 CAYETANO MONTEIRO 4 [facility] MAMMOGRAP INC INC HY KEVIN INCL CAD WHEN PERFORMD NONEMERG A0120 FEDERATED FEDERATED TRNSPRT: 4 MINI-BUS TRANSPORT TRANSPORT MTN [facility] SER [facility] AREA/OTH SYS COMPUTER- 45692 CAYETANO MONTEIRO AIDED 4 [facility] DETECTION INC INC SCREENING MAMMOGRAP HY BLOOD 78549 FLORENTINO SANTAMARIAES MARTY COUNT 4 COMPLETE AUTO&[place] [address] [facility] THYROID 4 DIAGNOSTI DIAGNOSTI STIMULATI [...] ATION SER ATION SER AREA/OTH SYS DEBRIDEME 32477 YOON KARRIE NT 3 KERI KERI MASTOIDEC JUANCHO CAVITY SIMPLE NONEMERG A0120 FEDERATED FEDERATED TRNSPRT: 3 MINI-BUS TRANSPORT TRANSPORT MTN ATION SER ATION SER AREA/OTH SYS NONEMERG A0120 FEDERATED FEDERATED TRNSPRT: 3 MINI-BUS TRANSPORT TRANSPORT MTN ATION SER ATION SER AREA/OTH SYS DEBRIDEME 41157 KARRIE YOON NT 3 KERI KERI MASTOIDEC JUANCHO CAVITY SIMPLE NONEMERG A0120 FEDERATED FEDERATED TRNSPRT: 3 MINI-BUS TRANSPORT TRANSPORT MTN ATION SER ATION SER AREA/OTH SYS NONEMERG A0120 LKLP CAC LKLP CAC TRNSPRT: 3 INC INC MINI-BUS REGION 11 REGION 11 MTN [place] [address] [facility] THYROID 3 DIAGNOSTI DIAGNOSTI STIMULATI CS CS NG HORMONE TSH COLLECTIO 91545 Maxine GOOD MARTY N VENOUS 3 NANCY FIELDS BLOOD PSC VENIPUNCT URE LIPID 23151 Maxine GOOD MARTY PANEL 3 NANCY FIELDS PSC BASIC 29250 [facility] METABOLIC 3 DIAGNOSTI DIAGNOSTI PANEL CS CS CALCIUM TOTAL GLUCOSE 51577 Maxine GOOD MARTY QUANTITAT 3 NANCY FIELDS [place] BLOOD PSC XCPT REAGENT STRIP DIRECT G0154 [facility] SKILL 3 [facility] AGENCY AGENCY HH/HOSPIC E EA 15 MIN QUANTITAT 77657 CAYETANO MONTEIRO ION DRUG 3 [facility] NOT INC INC ELSEWHERE SPECIFIED DIRECT G0154 [facility] SKILL 3 HOME [facility] AGENCY AGENCY HH/HOSPIC E EA 15 MIN NONEMERG A0120 LKLP CAC LKLP CAC TRNSPRT: 3 INC INC MINI-BUS REGION 11 REGION 11 MTN AREA/OTH SYS GROUND A0425 [facility] MILEAGE 3 AMBULANCE AMBULANCE PER SERVICE SERVICE STATUTE MILE AMBULANCE A0429 [facility] SERVICE 3 AMBULANCE AMBULANCE BLS SERVICE [place] [address] CAYETANO MONTEIRO THYROID 3 [facility] STIMULATI INC INC NG HORMONE TSH US SOFT 55264 CAYETANO MONTEIRO TISSUE 3 [facility] HEAD & INC [place] [address] CAYETANO MONTEIRO FREE 3 [facility] THYROXINE INC INC URNLS DIP 09666 [facility] 3 DON DON STICK/TAB LET RGNT NON-AUTO W/O MICRSCP COMPUTER- 23674 MEM[facility] MEME AIDED 3 YAZ YAZ DETECTION SCREENING MAMMOGRAP HY SCREENING G0202 MEME MEME 3 YAZ YAZ MAMMOGRAP HY KEVIN INCL CAD WHEN PERFORMD NONEMERG A0120 LKLP LKLP TRNSPRT: 3 [facility] MINI-BUS ACTION ACTION IAN [place] [address] CAYETANO MONTEIRO THYROID 3 [facility] STIMULATI INC INC NG HORMONE TSH LIPID 79287 CAYETANO MONTEIRO PANEL 3 [facility] INC INC DRUG 17995 CAYETANO MONTEIRO SCREEN 3 [facility] QUANTITAT INC INC BROOKLYNN PHENYTOIN TOTAL COMPREHEN 29496 CAYETANO MONTEIRO SIVE 3 [facility] METABOLIC INC INC PANEL CYTP 88169 [facility] SLIDES 3 DIAGNOSTI DIAGNOSTI CERV/VAG [...] HLTH/HOSP ICE EA 15 MIN SRVC G0156 [facility] 2 HOME HOME E AIDE IN HEALTH HEALTH AGENCY AGENCY HH/HOSPIC E SET EA 15 MIN DIRECT G0154 [facility] SKILL 2 HOME HOME [facility] SERVICES AGENCY AGENCY HH/HOSPIC E EA 15 MIN GROUND A0425 [facility] 2 AMBULANCE AMBULANCE PER SERVICE SERVICE STATUTE MILE AMBULANCE A0429 [facility] SERVICE 2 AMBULANCE AMBULANCE BLS SERVICE SERVICE EMERGENCY TRANSPORT RADIOLOGI 49435 [place] [facility] C 2 MED[facility] YAZ EXAMINATI IMAGING ON PELVIS ASS 1/2 VIEWS RADEX HIP 60968 [facility] UNILATERA IMAGING L ASS COMPLETE MINIMUM 2 VIEWS RADEX HIP 65735 [facility] UNILATERA INC INC L COMPLETE MINIMUM 2 VIEWS RADEX 66401 [facility] 2 [facility] Y[facility] BILATERAL IMAGING 2 VIEWS ASS ANTEROPOS T PELVIS RAD[facility]OLOGI 33753 [facility] EXAMINATI IMAGING ON PELVIS ASS 1/2 VIEWS RADEX 49437 [facility] SPINE 2 MEDICAL YAZ LUMBOSACR IMAGING AL ASS MINIMUM 4 VIEWS RADEX 81995 LATONYA HANKS SHOULDER 2 DON DON COMPLETE MINIMUM 2 VIEWS NONEMERG A0120 [facility] TRNSPRT: 2 [facility]I-BUS ACTION ACTION MTN AREA/OTH SYS INCISION 89311 LATONYA HANKS THROMBOSE 2 DON DON D HEMORRHOI D EXTERNAL NONEMERG A0120 [facility] TRNSPRT: 2 [facility]I-[facility] ACTION ACTION MTN AREA/OTH SYS COMPREHEN 20198 [facility] SIVE 2 [facility] METABOLIC INC INC PANEL NONEMERG A0120 [facility] TRNSPRT: 2 [facility]I-BUS ACTION ACTION MTN AREA/OTH SYS DESTRUCTI 89122 LATONYA HANKS ON 2 DON DON PREMALIGN ANT LESION 1ST NONEMERG A0120 [facility] TRNSPRT: 2 [facility] [employer]-BUS ACTION ACTION MTN AREA/OTH SYS NONEMERG A0120 [facility] TRNSPRT: 2 [facility] MINI-[facility] ACTION ACTION MTN AREA/OTH SYS COMPREHEN 50970 [facility] SIVE 2 [facility] METABOLIC INC INC PANEL DRUG 34176 [facility] SCREEN 2 [facility] QUANTITAT INC INC BROOKLYNN PHENYTOIN TOTAL LIPID 69038 [facility] PANEL 2 [place] [address] [facility] THYROID 2 [facility] STIMULATI INC INC NG HORMONE TSH SCREENING G0202 [facility] 2 [facility] YAZ MAMMOGRAP IMAGING HY KEVIN ASS INCL CAD WHEN PERFORMD COMPUTER- 82452 [facility] AIDED 2 MEDICAL YAZ DETECTION IMAGING ASS SCREENING MAMMOGRAP HY DIRECT G0154 NURSES NURSES SKILL 2 REGISTRY [...] HOME HLTH/HOSP ICE EA 15 MIN OPHTH 63443 [facility] 2 VISION ANG XM&EVAL COMPRHNSV ESTAB PT 1/> [place] [address] [facility] THYROID 1 [facility] STIMULATI INC INC NG HORMONE TSH LIPID 10178 [facility] PANEL 1 [facility] INC INC DRUG 91707 [facility] SCREEN 1 [facility] QUANTITAT INC INC BROOKLYNN PHENYTOIN TOTAL COMPREHEN 90889 [facility] SIVE 1 [facility] METABOLIC INC INC PANEL QUANTITAT 56854 [facility] ION DRUG 1 [facility] NOT INC INC ELSEWHERE SPECIFIED COMPREHEN 92511 [facility] SIVE 1 [facility] METABOLIC INC INC PANEL BLOOD 59252 [facility] COUNT 1 [facility] COMPLETE INC INC AUTO&AUTO DIFRNTL WBC SELF-CARE 59168 SUPPORT SUPPORT /HOME 1 SOURCE SOURCE MGMT TRAINING EACH 15 MINUTES SELF-CARE 41906 SUPPORT SUPPORT /HOME 1 SOURCE SOURCE MGMT TRAINING EACH 15 MINUTES SELF-CARE 73400 SUPPORT SUPPORT /HOME 1 SOURCE SOURCE MGMT TRAINING EACH 15 MINUTES SELF-CARE 34736 SUPPORT SUPPORT /HOME 1 SOURCE SOURCE MGMT TRAINING EACH 15 MINUTES SELF-CARE 64861 SUPPORT SUPPORT /HOME 1 SOURCE SOURCE MGMT TRAINING EACH 15 MINUTES SELF-CARE 38483 SUPPORT SUPPORT /HOME 1 SOURCE SOURCE MGMT TRAINING EACH 15 MINUTES SELF-CARE 14652 SUPPORT SUPPORT /HOME 1 SOURCE SOURCE MGMT TRAINING EACH 15 MINUTES SELF-CARE 71062 SUPPORT SUPPORT /HOME 1 SOURCE SOURCE MGMT TRAINING EACH 15 MINUTES SELF-CARE 81781 SUPPORT SUPPORT /HOME 1 SOURCE SOURCE MGMT TRAINING EACH 15 MINUTES SELF-CARE 37902 SUPPORT SUPPORT /HOME 1 SOURCE SOURCE MGMT TRAINING EACH 15 MINUTES SELF-CARE 92077 SUPPORT SUPPORT /HOME 1 SOURCE SOURCE MGMT TRAINING EACH 15 MINUTES QUANTITAT 70628 CA[facility]ETANO CA[facility] DRUG 1 [facility] NOT INC INC ELSEWHERE SPECIFIED BLOOD 74826 CAYETANO MONTEIRO COUNT 1 [facility] COMPLETE INC INC AUTO&AUTO DIFRNTL [facility] [id number] CAYETANO CAYETANO OBSERVATI 1 [facility] ON INC INC SERVICE PER HOUR BASIC 98742 CAYETANO CAYETANO METABOLIC 1 [facility] PANEL INC INC CALCIUM TOTAL OBSERVATI 29781 FAMILY MULBERRY ON CARE 1 CARE HARRY [place]CHAR[place] [address] CAYETANO [facility]IR[facility] LIPASE 1 [facility] AMB [id number] [facility]ELIA [facility] SERVICE 1 AMBULANCE AMBULANCE ALS SERVICE SERVICE [place]ERGENC[place]SPORT L[place] 1 [place] [address] CAYETANO MONTEIRO INFUSION 1 [facility] THERAPY INC INC PROPHYLAX IS/DX EA [facility] [id number] CAYETANO MONTEIRO OBSERVATI 1 [facility] [place] [address] CAYETANO MONTEIRO AMYLASE 1 [facility] INC INC BLOOD 17190 CAYETANO AVERYON COUNT 1 [facility] COMPLETE INC INC AUTO&AUTO DIFRNTL WBC URNLS DIP 70760 CAYETANO MONTEIRO 1 [facility] STICK/TAB INC [place] [address] CAYETANO MONTEIRO INFUSION 1 [facility] THERAPY/P INC INC ROPHYLAXI S /DX 1ST TO 1 HR GROUND A0425 EMELIA [facility] MILEAGE 1 AMBULANCE AMBULANCE PER SERVICE SERVICE STATUTE MILE ALS [id number] EMELIA [facility] ROUTINE 1 AMBULANCE AMBULANCE DISPOSABL SERVICE SERVICE E SUPPLIES QUANTITAT 92203 CAYETANO MONTEIRO ION DRUG 1 [facility] NOT INC INC ELSEWHERE SPECIFIED INITIAL 58737 FAMILY MULBERRY OBSERVATI 1 CARE HARRY ON ASSOCIATE CARE/DAY S 50 MINUTES COMPREHEN 84452 CAYETANO MONTEIRO SIVE 1 [facility] [address] CAYETANO MONTEIRO STREPTOCO 1 [facility] CCUS INC INC GROUP A COMPREHEN 31703 CAYETANO MONTEIRO SIVE 1 [facility] [place] [address] CAYETANO MONTEIOR INFUSION 1 [facility] THERAPY/P INC INC ROPHYLAXI S /DX 1ST TO [place] [address] CAYETANO MONTEIRO TROPONIN 1 [facility] QUANTITAT INC INC BROOKLYNN CREATINE 27993 CAYETANO MONTEIRO KINASE MB 1 [facility] [place] [address] CAYETANO MONTEIRO AMYLASE 1 [facility] INC INC 3D 55626 [facility] RENDERING 1 MEDICAL YAZ W/INTERP IMAGING & [place] [address] CAYETANO MONTIERO INFUSION 1 [facility] THERAPY [place] [address] CARLOS VALENTINE HEAD/BRAI 1 MEDICAL YAZ N W/O IMAGING CONTRAST ASS MATERIAL [facility] 54[facility] MED[facility] EXAMINATI IMAGING [place] [address] CAYETANO MONTEIRO LIPASE 1 [facility] INC INC CREATINE 32022 CAYETANO MONTEIRO KINASE 1 [facility] TOTAL INC INC BLOOD 82878 CAYETANO MONTEIRO COUNT 1 [facility] COMPLETE INC INC AUTO&AUTO DIFRNTL WBC BLOOD 30724 CAYETANO MONTEIRO COUNT 1 [facility] COMPLETE INC INC AUTO&AUTO DIFRNTL WBC COMPREHEN 65162 CAYETANO MONTEIRO SIVE 1 [facility] METABOLIC INC INC PANEL QUANTITAT 36703 CAYETANO MONTEIRO ION DRUG 1 [facility] NOT INC INC ELSEWHERE SPECIFIED SELF-CARE 61003 SUPPORT SUPPORT /HOME 1 SOURCE SOURCE MGMT TRAINING EACH 15 MINUTES SELF-CARE 05675 SUPPORT SUPPORT /HOME 1 SOURCE SOURCE MGMT TRAINING EACH 15 MINUTES SELF-CARE 68817 SUPPORT SUPPORT /HOME 1 SOURCE SOURCE MGMT TRAINING EACH 15 MINUTES SELF-CARE 73401 SUPPORT SUPPORT /HOME 1 SOURCE SOURCE MGMT TRAINING EACH 15 MINUTES COMPREHEN 95600 CAYETANO MONTEIRO SIVE 1 [facility] METABOLIC INC INC PANEL DRUG 92856 CAYETANO MONTEIRO SCREEN 1 [facility] QUANTITAT INC INC BROOKLYNN PHENYTOIN TOTAL LIPID 30269 CAYETANO AVERYON PANEL 1 [facility] [place] [address] CAYETANO MONTEIRO THYROID 1 [facility] STIMULATI INC INC NG HORMONE TSH BLOOD 64311 CAYETANO AVERYON COUNT 1 [facility] COMPLETE INC INC AUTO&AUTO DIFRNTL WBC SCREENING G0202 [facility] 1 [facility] Y[facility] MAMMOGRAP IMAGING HY KEVIN ASS INCL CAD WHEN PERFORMD COMPUTER- 89462 [facility] AIDED 1 [facility]ICAL [facility] DETECTION IMAGING ASS SCREENING MAMMOGRAP HY DEBRIDEME 27782 KARRIE YOON NT 1 KERI KERI MASTOIDEC JUANCHO CAVITY SIMPLE BLOOD 88773 CAYETANO MONTEIRO COUNT 1 [facility] COMPLETE INC INC AUTO&AUTO DIFRNTL WBC BASIC 87736 CAYETANO MONTEIRO METABOLIC 1 [facility] PANEL INC INC CALCIUM TOTAL GROUND A0425 [facility] PER SERVICE SERVICE STATUTE MILE AMBULANCE A0429 [facility] SERVICE 1 AMBULANCE AMBULANCE BLS SERVICE SERVICE EMERGENCY TRANSPORT DRUG 32513 CAYETANO AVERYON SCREEN 1 [facility] QUANTITAT INC INC BROOKLYNN PHENYTOIN TOTAL DRUG 75579 CAYETANO AVERYON SCREEN 1 [facility] QUANTITAT INC [place] [address] CAYETANO CAYETANO THYROID 1 [facility] STIMULATI INC INC NG HORMONE TSH SELF-CARE 61289 SUPPORT SUPPORT /HOME 0 SOURCE SOURCE MGMT TRAINING EACH 15 MINUTES SELF-CARE 74066 SUPPORT SUPPORT /HOME 0 SOURCE SOURCE MGMT TRAINING EACH 15 MINUTES SELF-CARE 13969 SUPPORT SUPPORT /HOME 0 SOURCE SOURCE MGMT TRAINING EACH 15 MINUTES SELF-CARE 32461 SUPPORT SUPPORT /HOME 0 SOURCE SOURCE MGMT TRAINING EACH 15 MINUTES SELF-CARE 35662 SUPPORT SUPPORT /HOME 0 SOURCE SOURCE MGMT TRAINING EACH 15 MINUTES DEBRIDEME 08750 KARRIE YOON NT 0 KERI KERI MASTOIDEC JUANCHO CAVITY SIMPLE SELF-CARE 21095 SUPPORT SUPPORT /HOME 0 SOURCE SOURCE MGMT TRAINING EACH 15 MINUTES SELF-CARE 68338 SUPPORT SUPPORT /HOME 0 SOURCE SOURCE MGMT TRAINING EACH 15 MINUTES SELF-CARE 79132 SUPPORT SUPPORT /HOME 0 SOURCE SOURCE MGMT TRAINING EACH 15 MINUTES SELF-CARE 61661 SUPPORT SUPPORT /HOME 0 SOURCE SOURCE MGMT TRAINING EACH 15 MINUTES SELF-CARE 06091 SUPPORT SUPPORT /HOME 0 SOURCE SOURCE MGMT TRAINING EACH 15 MINUTES DRUG 69674 CAYETANO MONTEIRO SCREEN 0 [facility] QUANTITAT INC INC BROOKLYNN PHENYTOIN TOTAL 3D 92754 CAYETANO MONTEIRO RENDERING 0 [facility] W/INTERP INC INC & [place] [address] [facility] HEAD/BRAI 0 MEDICAL YAZ N W/O IMAGING CONTRAST ASS MATERIAL BASIC 19168 CAYETANO MONTEIRO METABOLIC 0 [facility] PANEL INC INC CALCIUM TOTAL BLOOD 78782 CAYETANO MONTEIRO COUNT 0 [facility] COMPLETE INC INC AUTO&AUTO DIFRNTL WBC SELF-CARE 95073 SUPPORT SUPPORT /HOME 0 SOURCE SOURCE MGMT TRAINING EACH 15 MINUTES SELF-CARE 55130 SUPPORT SUPPORT /HOME 0 SOURCE SOURCE MGMT TRAINING EACH 15 MINUTES SELF-CARE 53096 SUPPORT SUPPORT /HOME 0 SOURCE SOURCE MGMT TRAINING EACH 15 MINUTES SELF-CARE 78969 SUPPORT SUPPORT /HOME 0 SOURCE SOURCE MGMT TRAINING EACH 15 MINUTES SELF-CARE 50119 SUPPORT SUPPORT /HOME 0 SOURCE SOURCE MGMT TRAINING EACH 15 MINUTES SELF-CARE 66360 SUPPORT SUPPORT /HOME 0 SOURCE SOURCE MGMT TRAINING EACH 15 MINUTES SELF-CARE 56179 SUPPORT SUPPORT /HOME 0 SOURCE SOURCE MGMT TRAINING EACH 15 MINUTES SELF-CARE 83817 SUPPORT SUPPORT /HOME 0 SOURCE SOURCE MGMT TRAINING EACH 15 MINUTES SELF-CARE 37365 SUPPORT SUPPORT /HOME 0 SOURCE SOURCE MGMT TRAINING EACH 15 MINUTES SELF-CARE 97871 SUPPORT SUPPORT /HOME 0 SOURCE SOURCE MGMT TRAINING EACH 15 MINUTES SELF-CARE 26699 SUPPORT SUPPORT /HOME 0 SOURCE SOURCE MGMT TRAINING EACH 15 MINUTES SELF-CARE 26689 SUPPORT SUPPORT /HOME 0 SOURCE SOURCE MGMT TRAINING EACH 15 MINUTES SELF-CARE 05597 SUPPORT SUPPORT /HOME 0 SOURCE SOURCE MGMT TRAINING EACH 15 MINUTES SELF-CARE 27527 SUPPORT SUPPORT /HOME 0 SOURCE SOURCE MGMT TRAINING EACH 15 MINUTES SELF-CARE 45277 SUPPORT SUPPORT /HOME 0 SOURCE SOURCE MGMT TRAINING EACH 15 MINUTES MICROSURG 98300 KARRIE YOON TQS REQ 0 KERI KERI USE OPERATING MICROSCOP E DEBRIDEME 15481 KARRIE YOON NT 0 KERI KERI MASTOIDEC JUANCHO CAVITY SIMPLE SELF-CARE 24498 SUPPORT SUPPORT /HOME 0 SOURCE SOURCE MGMT TRAINING EACH 15 MINUTES SELF-CARE 64706 SUPPORT SUPPORT /HOME 0 SOURCE SOURCE MGMT TRAINING EACH 15 MINUTES SELF-CARE 07186 SUPPORT SUPPORT /HOME 0 SOURCE SOURCE MGMT TRAINING EACH 15 MINUTES SELF-CARE 81853 SUPPORT SUPPORT /HOME 0 SOURCE SOURCE MGMT TRAINING EACH 15 MINUTES SELF-CARE 10277 SUPPORT SUPPORT /HOME 0 SOURCE SOURCE MGMT TRAINING EACH 15 MINUTES SELF-CARE 13685 SUPPORT SUPPORT /HOME 0 SOURCE SOURCE MGMT TRAINING EACH 15 MINUTES SELF-CARE 81821 SUPPORT SUPPORT /HOME 0 SOURCE SOURCE MGMT TRAINING EACH 15 MINUTES DRUG 60153 CAYETANO MONTEIRO SCREEN 0 [facility] QUANTITAT INC INC BROOKLYNN PHENYTOIN TOTAL SELF-CARE 29035 SUPPORT SUPPORT /HOME 0 SOURCE SOURCE MGMT TRAINING EACH [address] [place] [address] CAYETANO MONTEIRO THYROID 0 [facility] STIMULATI INC INC NG HORMONE TSH SELF-CARE 75340 SUPPORT SUPPORT /HOME 0 SOURCE SOURCE MGMT TRAINING EACH 15 MINUTES SELF-CARE 77022 SUPPORT SUPPORT /HOME 0 SOURCE SOURCE MGMT TRAINING EACH 15 MINUTES SELF-CARE 39806 SUPPORT SUPPORT /HOME 0 SOURCE SOURCE MGMT TRAINING EACH 15 MINUTES SELF-CARE 23783 SUPPORT SUPPORT /HOME 0 SOURCE SOURCE MGMT TRAINING EACH 15 MINUTES SELF-CARE 66987 SUPPORT SUPPORT /HOME 0 SOURCE SOURCE MGMT TRAINING EACH 15 MINUTES SELF-CARE 51470 SUPPORT SUPPORT /HOME 0 SOURCE SOURCE MGMT TRAINING EACH 15 MINUTES SELF-CARE 13301 SUPPORT SUPPORT /HOME 0 SOURCE SOURCE MGMT TRAINING EACH 15 MINUTES SELF-CARE 94556 SUPPORT SUPPORT /HOME 0 SOURCE SOURCE MGMT TRAINING EACH 15 MINUTES SELF-CARE 60172 SUPPORT SUPPORT /HOME 0 SOURCE SOURCE MGMT TRAINING EACH 15 MINUTES SELF-CARE 20519 SUPPORT SUPPORT /HOME 0 SOURCE SOURCE MGMT TRAINING EACH 15 MINUTES SELF-CARE 15178 SUPPORT SUPPORT /HOME 0 SOURCE SOURCE MGMT TRAINING EACH 15 MINUTES SELF-CARE 98836 SUPPORT SUPPORT /HOME 0 SOURCE SOURCE MGMT TRAINING EACH 15 MINUTES SELF-CARE 54203 SUPPORT SUPPORT /HOME 0 SOURCE SOURCE MGMT TRAINING EACH 15 MINUTES SELF-CARE 83783 SUPPORT SUPPORT /HOME 0 SOURCE SOURCE MGMT TRAINING EACH 15 MINUTES SELF-CARE 56789 SUPPORT SUPPORT /HOME 0 SOURCE SOURCE MGMT TRAINING EACH 15 MINUTES SELF-CARE 25765 SUPPORT SUPPORT /HOME 0 SOURCE SOURCE MGMT TRAINING EACH 15 MINUTES SELF-CARE 72428 SUPPORT SUPPORT /HOME 0 SOURCE SOURCE MGMT TRAINING EACH 15 MINUTES DRUG 31099 CAYETANO MONTEIRO SCREEN 0 [facility] QUANTITAT INC INC BROOKLYNN PHENYTOIN TOTAL AMBULANCE A0429 [facility] SERVICE 0 AMBULANCE AMBULANCE BLS SERVICE SERVICE EMERGENCY TRANSPORT GROUND A0425 [facility] PER SERVICE SERVICE STATUTE MILE SELF-CARE 25839 SUPPORT SUPPORT /HOME 0 SOURCE SOURCE MGMT TRAINING EACH 15 MINUTES SELF-CARE 31572 SUPPORT SUPPORT /HOME 0 SOURCE SOURCE MGMT TRAINING EACH 15 MINUTES SELF-CARE 44150 SUPPORT SUPPORT /HOME 0 SOURCE SOURCE MGMT TRAINING EACH 15 MINUTES SELF-CARE 48964 SUPPORT SUPPORT /HOME 0 SOURCE SOURCE MGMT TRAINING EACH 15 MINUTES SELF-CARE 31967 SUPPORT SUPPORT /HOME 0 SOURCE SOURCE MGMT TRAINING EACH 15 MINUTES SELF-CARE 89798 SUPPORT SUPPORT /HOME 0 SOURCE SOURCE MGMT TRAINING EACH 15 MINUTES SELF-CARE 50189 SUPPORT SUPPORT /HOME 0 SOURCE SOURCE MGMT TRAINING EACH 15 MINUTES SELF-CARE 45206 SUPPORT SUPPORT /HOME 0 SOURCE SOURCE MGMT TRAINING EACH 15 MINUTES SELF-CARE 32015 SUPPORT SUPPORT /HOME 0 SOURCE SOURCE MGMT TRAINING EACH 15 MINUTES SELF-CARE 74104 SUPPORT SUPPORT /HOME 0 SOURCE SOURCE MGMT TRAINING EACH 15 MINUTES SELF-CARE 09294 SUPPORT SUPPORT /HOME 0 SOURCE SOURCE MGMT TRAINING EACH 15 MINUTES SELF-CARE 93122 SUPPORT SUPPORT /HOME 0 SOURCE SOURCE MGMT TRAINING EACH 15 MINUTES SELF-CARE 68363 SUPPORT SUPPORT /HOME 0 SOURCE SOURCE MGMT TRAINING EACH 15 MINUTES SELF-CARE 62139 SUPPORT SUPPORT /HOME 0 SOURCE SOURCE MGMT TRAINING EACH 15 MINUTES SELF-CARE 83403 SUPPORT SUPPORT /HOME 0 SOURCE SOURCE MGMT TRAINING EACH 15 MINUTES SELF-CARE 97339 SUPPORT SUPPORT /HOME 0 SOURCE SOURCE MGMT TRAINING EACH 15 MINUTES SELF-CARE 16142 SUPPORT SUPPORT /HOME 0 SOURCE SOURCE MGMT TRAINING EACH 15 MINUTES SELF-CARE 16426 SUPPORT SUPPORT /HOME 0 SOURCE SOURCE MGMT TRAINING EACH 15 MINUTES SELF-CARE 86704 SUPPORT SUPPORT /HOME 0 SOURCE SOURCE MGMT TRAINING EACH 15 MINUTES SELF-CARE 96912 SUPPORT SUPPORT /HOME 0 SOURCE SOURCE MGMT TRAINING EACH 15 MINUTES SELF-CARE 87534 SUPPORT SUPPORT /HOME 0 SOURCE SOURCE MGMT TRAINING EACH 15 MINUTES SELF-CARE 61679 SUPPORT SUPPORT /HOME 0 SOURCE SOURCE MGMT TRAINING EACH 15 MINUTES SELF-CARE 79129 SUPPORT SUPPORT /HOME 0 SOURCE SOURCE MGMT TRAINING EACH 15 MINUTES SELF-CARE 98287 SUPPORT SUPPORT /HOME 0 SOURCE SOURCE MGMT TRAINING EACH 15 MINUTES SELF-CARE 34088 SUPPORT SUPPORT /HOME 0 SOURCE SOURCE MGMT TRAINING EACH 15 MINUTES SELF-CARE 99348 SUPPORT SUPPORT /HOME 0 SOURCE SOURCE MGMT TRAINING EACH 15 MINUTES SELF-CARE 24118 SUPPORT SUPPORT /HOME 0 SOURCE SOURCE MGMT TRAINING EACH 15 MINUTES SELF-CARE 88503 SUPPORT SUPPORT /HOME 0 SOURCE SOURCE MGMT TRAINING EACH 15 MINUTES SELF-CARE 65657 SUPPORT SUPPORT /HOME 0 SOURCE SOURCE MGMT TRAINING EACH 15 MINUTES SELF-CARE 82057 SUPPORT SUPPORT /HOME 0 SOURCE SOURCE MGMT TRAINING EACH 15 MINUTES SELF-CARE 65441 SUPPORT SUPPORT /HOME 0 SOURCE SOURCE MGMT TRAINING EACH 15 MINUTES SELF-CARE 67397 SUPPORT SUPPORT /HOME 0 SOURCE SOURCE MGMT TRAINING EACH 15 MINUTES SELF-CARE 70450 SUPPORT SUPPORT /HOME 0 SOURCE SOURCE MGMT TRAINING EACH 15 MINUTES SELF-CARE 75900 SUPPORT SUPPORT /HOME 0 SOURCE SOURCE MGMT TRAINING EACH 15 MINUTES SELF-CARE 01510 SUPPORT SUPPORT /HOME 0 SOURCE SOURCE MGMT TRAINING EACH 15 MINUTES SELF-CARE 89018 SUPPORT SUPPORT /HOME 0 SOURCE SOURCE MGMT TRAINING EACH 15 MINUTES SELF-CARE 22986 SUPPORT SUPPORT /HOME 0 SOURCE SOURCE MGMT TRAINING EACH 15 MINUTES SELF-CARE 29641 SUPPORT SUPPORT /HOME 0 SOURCE SOURCE MGMT TRAINING EACH 15 MINUTES SELF-CARE 32392 SUPPORT SUPPORT /HOME 0 SOURCE SOURCE MGMT TRAINING EACH 15 MINUTES DRUG 57225 CAYETANO MONTEIRO SCREEN 0 [facility] QUANTITAT INC INC BROOKLYNN PHENYTOIN TOTAL COMPREHEN 02912 CAYETANO MONTEIRO SIVE 0 [facility] [place] [address] CAYETANO MONTEIRO THYROID 0 [facility] STIMULATI INC INC NG HORMONE TSH BLOOD 10876 CAYETANO MONTEIRO COUNT 0 [facility] COMPLETE INC INC AUTO&AUTO DIFRNTL WBC SELF-CARE 11472 SUPPORT SUPPORT /HOME 0 SOURCE SOURCE MGMT TRAINING EACH 15 MINUTES SELF-CARE 12809 SUPPORT SUPPORT /HOME 0 SOURCE SOURCE MGMT TRAINING EACH 15 MINUTES SELF-CARE 95393 SUPPORT SUPPORT /HOME 0 SOURCE SOURCE MGMT TRAINING EACH 15 MINUTES DEBRIDEME 58506 KARRIE YOON, NT 0 KRISTI G KRISTI G MASTOIDEC JUANCHO CAVITY SIMPLE SELF-CARE 81188 SUPPORT SUPPORT /HOME 0 SOURCE SOURCE MGMT TRAINING EACH 15 MINUTES SELF-CARE 98295 SUPPORT SUPPORT /HOME 0 SOURCE SOURCE MGMT TRAINING EACH 15 MINUTES SELF-CARE 86087 SUPPORT SUPPORT /HOME 0 SOURCE SOURCE MGMT TRAINING EACH 15 MINUTES SELF-CARE 23211 SUPPORT SUPPORT /HOME 0 SOURCE SOURCE MGMT TRAINING EACH 15 MINUTES SELF-CARE 77956 SUPPORT SUPPORT /HOME 0 SOURCE SOURCE MGMT TRAINING EACH 15 MINUTES SELF-CARE 79205 SUPPORT SUPPORT /HOME 0 SOURCE SOURCE MGMT TRAINING EACH 15 MINUTES SELF-CARE 94478 SUPPORT SUPPORT /HOME 0 SOURCE SOURCE MGMT TRAINING EACH 15 MINUTES SELF-CARE 31642 SUPPORT SUPPORT /HOME 0 SOURCE SOURCE MGMT TRAINING EACH 15 MINUTES SELF-CARE 94923 SUPPORT SUPPORT /HOME 0 SOURCE SOURCE MGMT TRAINING EACH 15 MINUTES SELF-CARE 97061 SUPPORT SUPPORT /HOME 0 SOURCE SOURCE MGMT TRAINING EACH 15 MINUTES SELF-CARE 97625 SUPPORT SUPPORT /HOME 0 SOURCE SOURCE MGMT TRAINING EACH 15 MINUTES SELF-CARE 28620 SUPPORT SUPPORT /HOME 0 SOURCE SOURCE MGMT TRAINING EACH 15 MINUTES SELF-CARE 39035 SUPPORT SUPPORT /HOME 0 SOURCE SOURCE MGMT TRAINING EACH 15 MINUTES SELF-CARE 22485 SUPPORT SUPPORT /HOME 0 SOURCE SOURCE MGMT TRAINING EACH 15 MINUTES SELF-CARE 47167 SUPPORT SUPPORT /HOME 0 SOURCE SOURCE MGMT TRAINING EACH 15 MINUTES SELF-CARE 45792 SUPPORT SUPPORT /HOME 0 SOURCE SOURCE MGMT TRAINING EACH 15 MINUTES SELF-CARE 28923 SUPPORT SUPPORT /HOME 0 SOURCE SOURCE MGMT TRAINING EACH 15 MINUTES SELF-CARE 80277 SUPPORT SUPPORT /HOME 0 SOURCE SOURCE MGMT TRAINING EACH 15 MINUTES SELF-CARE 79055 SUPPORT SUPPORT /HOME 0 SOURCE SOURCE MGMT TRAINING EACH 15 MINUTES SELF-CARE 70146 SUPPORT SUPPORT /HOME 0 SOURCE SOURCE MGMT TRAINING EACH 15 MINUTES SELF-CARE 95154 SUPPORT SUPPORT /HOME 0 SOURCE SOURCE MGMT TRAINING EACH 15 MINUTES [facility] [address] GERMAIN HOWARD, MEDICAL 0 VISION MARIETTA A XM&EVAL COMPRHNSV ESTAB PT 1/> SELF-CARE 98527 SUPPORT SUPPORT /HOME 0 SOURCE SOURCE MGMT TRAINING EACH 15 MINUTES SELF-CARE 19493 SUPPORT SUPPORT /HOME 0 SOURCE SOURCE MGMT TRAINING EACH 15 MINUTES SELF-CARE 08892 SUPPORT SUPPORT /HOME 0 SOURCE SOURCE MGMT TRAINING EACH 15 MINUTES SELF-CARE 83626 SUPPORT SUPPORT /HOME 0 SOURCE SOURCE MGMT TRAINING EACH 15 MINUTES SELF-CARE 94152 SUPPORT SUPPORT /HOME 0 SOURCE SOURCE MGMT TRAINING EACH 15 MINUTES SELF-CARE 60043 SUPPORT SUPPORT /HOME 0 SOURCE SOURCE MGMT TRAINING EACH 15 MINUTES SELF-CARE 35878 SUPPORT SUPPORT /HOME 0 SOURCE SOURCE MGMT TRAINING EACH 15 MINUTES SELF-CARE 63800 SUPPORT SUPPORT /HOME 0 SOURCE SOURCE MGMT TRAINING EACH 15 MINUTES SELF-CARE 71107 SUPPORT SUPPORT /HOME 0 SOURCE SOURCE MGMT TRAINING EACH 15 MINUTES SELF-CARE 20845 SUPPORT SUPPORT /HOME 0 SOURCE SOURCE MGMT TRAINING EACH 15 MINUTES SELF-CARE 79776 SUPPORT SUPPORT /HOME 0 SOURCE SOURCE MGMT TRAINING EACH 15 MINUTES SELF-CARE 53655 SUPPORT SUPPORT /HOME 0 SOURCE SOURCE MGMT TRAINING EACH 15 MINUTES COMPRE 97157 KARRIE YOON, AUDIOMETR 0 KRISTI Akhtar Y THRESHOLD EVAL SP RECOGNIJ TYMPANOME 54890 KARRIE YOON, TRY 0 KRISTI G KRISTI Akhtar SELF-CARE 37192 SUPPORT SUPPORT /HOME 0 SOURCE SOURCE MGMT TRAINING EACH 15 MINUTES SELF-CARE 71034 SUPPORT SUPPORT /HOME 0 SOURCE SOURCE MGMT TRAINING EACH 15 MINUTES SELF-CARE 84960 SUPPORT SUPPORT /HOME 0 SOURCE SOURCE MGMT TRAINING EACH 15 MINUTES SELF-CARE 60659 SUPPORT SUPPORT /HOME 0 SOURCE SOURCE MGMT TRAINING EACH 15 MINUTES SELF-CARE 83505 SUPPORT SUPPORT /HOME 0 SOURCE SOURCE MGMT TRAINING EACH 15 MINUTES SELF-CARE 47484 SUPPORT SUPPORT /HOME 0 SOURCE SOURCE MGMT TRAINING EACH 15 MINUTES SELF-CARE 02709 SUPPORT SUPPORT /HOME 0 SOURCE SOURCE MGMT TRAINING EACH [address] [place] [address] CAYETANO MONTEIRO FREE 0 [facility] [place] [address] CAYETANO MONTEIRO THYROID 0 [facility] STIMULATI INC INC NG HORMONE TSH BLOOD 50557 CAYETANO MONTEIRO COUNT 0 [facility] COMPLETE INC INC AUTO&AUTO DIFRNTL WBC SELF-CARE 48130 SUPPORT SUPPORT /HOME 0 SOURCE SOURCE MGMT TRAINING EACH 15 MINUTES SELF-CARE 07753 SUPPORT SUPPORT /HOME 0 SOURCE SOURCE MGMT TRAINING EACH 15 MINUTES SELF-CARE 19829 SUPPORT SUPPORT /HOME 0 SOURCE SOURCE MGMT TRAINING EACH 15 MINUTES SELF-CARE 31757 SUPPORT SUPPORT /HOME 0 SOURCE SOURCE MGMT TRAINING EACH 15 MINUTES SELF-CARE 71562 SUPPORT SUPPORT /HOME 0 SOURCE SOURCE MGMT TRAINING EACH 15 MINUTES SELF-CARE 98782 SUPPORT SUPPORT /HOME 0 SOURCE SOURCE MGMT TRAINING EACH 15 MINUTES SELF-CARE 28162 SUPPORT SUPPORT /HOME 0 SOURCE SOURCE MGMT TRAINING EACH 15 MINUTES SELF-CARE 17142 SUPPORT SUPPORT /HOME 0 SOURCE SOURCE MGMT TRAINING EACH 15 MINUTES SELF-CARE 37927 SUPPORT SUPPORT /HOME 0 SOURCE SOURCE MGMT TRAINING EACH [address] ORBIT 16408 [facility], SELLA/POS 0 MEDICAL STEPHANI T IMAGING FOSSA/EAR ASSOCIATE W/[place] [address] [facility], MAXILLOFA 0 MEDICAL STEPHANI CIAL W/O IMAGING CONTRAST ASSOCIATE MATERIAL S 3D 67057 [facility], RENDERING 0 MEDICAL STEPHANI IMAGING W/INTERP& ASSOCIATE POSTPROC S DIFF WORK STATION SELF-CARE 28686 SUPPORT SUPPORT /HOME 0 SOURCE SOURCE MGMT TRAINING EACH 15 MINUTES SELF-CARE 48166 SUPPORT SUPPORT /HOME 0 SOURCE SOURCE MGMT TRAINING EACH 15 MINUTES SELF-CARE 18994 SUPPORT SUPPORT /HOME 0 SOURCE SOURCE MGMT TRAINING EACH 15 MINUTES SELF-CARE 01777 SUPPORT SUPPORT /HOME 0 SOURCE SOURCE MGMT TRAINING EACH 15 MINUTES SELF-CARE 64437 SUPPORT SUPPORT /HOME 0 SOURCE SOURCE MGMT TRAINING EACH 15 MINUTES SELF-CARE 06768 SUPPORT SUPPORT /HOME 0 SOURCE SOURCE MGMT TRAINING EACH 15 MINUTES SELF-CARE 61022 SUPPORT SUPPORT /HOME 0 SOURCE SOURCE MGMT TRAINING EACH 15 MINUTES SELF-CARE 24415 SUPPORT SUPPORT /HOME 0 SOURCE SOURCE MGMT TRAINING EACH 15 MINUTES SELF-CARE 49343 SUPPORT SUPPORT /HOME 0 SOURCE SOURCE MGMT TRAINING EACH 15 MINUTES SELF-CARE 00804 SUPPORT SUPPORT /HOME 0 SOURCE SOURCE MGMT TRAINING EACH 15 MINUTES SELF-CARE 75427 SUPPORT SUPPORT /HOME 0 SOURCE SOURCE MGMT TRAINING EACH 15 MINUTES SELF-CARE 34425 SUPPORT SUPPORT /HOME 0 SOURCE SOURCE MGMT TRAINING EACH 15 MINUTES SELF-CARE 79058 SUPPORT SUPPORT /HOME 0 SOURCE SOURCE MGMT TRAINING EACH 15 MINUTES SELF-CARE 41403 SUPPORT SUPPORT /HOME 0 SOURCE SOURCE MGMT TRAINING EACH 15 MINUTES COMPUTER- 87585 [place], AIDED 0 MEDICAL [employer] DETECTION IMAGING ASSOCIATE SCREENING S MAMMOGRAP HY SCREENING [id number] [place], 0 MEDICAL [facility] MAMMOGRAP IMAGING HY ASSOCIATE BILATERAL S CYTP 49548 [facility] [place] [facility] [place] [facility] MAINE INC CERV/VAG MNL SCRN PHYSICIAN SUPV SELF-CARE 10059 SUPPORT SUPPORT /HOME 0 SOURCE SOURCE MGMT TRAINING EACH 15 MINUTES BLOOD 24325 HANKS, HANKS, OCCULT 0 DON R DON R PEROXIDAS E ACTV QUAL FECES 1 DETER SELF-CARE 47993 SUPPORT SUPPORT /HOME 0 SOURCE SOURCE MGMT TRAINING EACH 15 MINUTES SELF-CARE 61822 SUPPORT SUPPORT /HOME 0 SOURCE SOURCE MGMT TRAINING EACH 15 MINUTES SELF-CARE 78549 SUPPORT SUPPORT /HOME 0 SOURCE SOURCE MGMT TRAINING EACH 15 MINUTES SELF-CARE 30208 SUPPORT SUPPORT /HOME 0 SOURCE SOURCE MGMT TRAINING EACH 15 MINUTES SELF-CARE 91393 SUPPORT SUPPORT /HOME 0 SOURCE SOURCE MGMT TRAINING EACH 15 MINUTES SELF-CARE 97666 SUPPORT SUPPORT /HOME 0 SOURCE SOURCE MGMT TRAINING EACH 15 MINUTES SELF-CARE 85434 SUPPORT SUPPORT /HOME 0 SOURCE SOURCE MGMT TRAINING EACH 15 MINUTES SELF-CARE 70472 SUPPORT SUPPORT /HOME 0 SOURCE SOURCE MGMT TRAINING EACH 15 MINUTES SELF-CARE 88918 SUPPORT SUPPORT /HOME 0 SOURCE SOURCE MGMT TRAINING EACH 15 MINUTES SELF-CARE 41451 SUPPORT SUPPORT /HOME 0 SOURCE SOURCE MGMT TRAINING EACH 15 MINUTES SELF-CARE 93155 SUPPORT SUPPORT /HOME 0 SOURCE SOURCE MGMT TRAINING EACH 15 MINUTES SELF-CARE 23707 SUPPORT SUPPORT /HOME 0 SOURCE SOURCE MGMT TRAINING EACH 15 MINUTES SELF-CARE 67115 SUPPORT SUPPORT /HOME 0 SOURCE SOURCE MGMT TRAINING EACH 15 MINUTES SELF-CARE 73460 SUPPORT SUPPORT /HOME 0 SOURCE SOURCE MGMT TRAINING EACH 15 MINUTES SELF-CARE 72485 SUPPORT SUPPORT /HOME 0 SOURCE SOURCE MGMT TRAINING EACH 15 MINUTES SELF-CARE 47928 SUPPORT SUPPORT /HOME 0 SOURCE SOURCE MGMT TRAINING EACH 15 MINUTES SELF-CARE 87577 SUPPORT SUPPORT /HOME 0 SOURCE SOURCE MGMT TRAINING EACH 15 MINUTES CONTINUOU E0601 DEBORAH CABRERA S 0 HOME MED HOME MED POSITIVE EQUIP. EQUIP. [facility] PRESSURE DEVICE SELF-CARE 96545 SUPPORT SUPPORT /HOME 0 SOURCE SOURCE MGMT TRAINING EACH 15 MINUTES SELF-CARE 38227 SUPPORT SUPPORT /HOME 0 SOURCE SOURCE MGMT TRAINING [place]ACH [place] [address] [facility] THYROID 0 [facility] STIMULATI INC INC NG HORMONE TSH DRUG 00399 [facility] SCREEN 0 [facility] QUANTITAT INC INC BROOKLYNN PHENYTOIN TOTAL DRUG 31757 [facility] SCREEN 0 [facility] QUANTITAT INC INC BR[place]NN PHENYTOIN TOTAL SUSCEPTIB 41370 [facility] LTY STDY 0 [facility] ANTIMICRB INC INC IAL MICRO/AGA R DILUTJ URNLS DIP 34572 [facility] 0 [facility] STICK/TAB INC INC LET REAGENT AUTO MICROSCOP Y BLOOD 10277 CAYETANO MONTEIRO [facility] COMPLETE INC INC AUTO&AUTO DIFRNTL WBC GROUND A0425 EMELIA KAPOOR MILEAGE 0 AMBULANCE AMBULANCE PER SERVICE SERVICE STATUTE MILE CULTURE 41829 CAYETANO MONTEIRO BACTERIAL 0 [facility] INC INC QUANTTATI VE COLONY COUNT URINE CULTURE 36108 CAYETANO MONTEIRO BCT 0 [facility] ISOL&PRSM INC INC PTV ID ISOLATE EA URINE AMB [id number] EMELIA KAPOOR SERVICE 0 AMBULANCE AMBULANCE ALS SERVICE SERVICE EMERGENCY TRANSPORT LEVEL 1 AMB A0422 EMELIA KAPOOR OXYGEN&O2 0 AMBULANCE AMBULANCE SUPPLIES SERVICE SERVICE LIFE SUSTAININ G SITUATION BASIC 29516 CAYETANO MONTEIRO METABOLIC 0 [facility] PANEL INC INC CALCIUM TOTAL MANUAL 88254 CAYETANO MONTEIRO THERAPY 0 [facility] TQS 1/> INC INC REGIONS EACH 15 MINUTES THERAPEUT 89737 CAYETANO MONTEIRO IC PX 1/> 0 [facility] AREAS INC INC EACH 15 MIN EXERCISES THERAPEUT 37786 CAYETANO MONTEIRO IC PX 1/> 0 [facility] AREAS INC INC EACH 15 MIN EXERCISES MANUAL 92599 CAYETANO MONTEIRO THERAPY 0 [facility] TQS 1/> INC INC REGIONS EACH 15 MINUTES APPLICATI 47112 CAYETANO MONTEIRO ON 0 [facility] MODALITY INC INC 1/> AREAS HOT/COLD PACKS APPLICATI 45623 CAYETANO MONTEIRO ON 0 [facility] MODALITY INC INC 1/> AREAS HOT/COLD PACKS MANUAL 01669 CAYETANO MONTEIRO THERAPY 0 [facility] TQS 1/> INC INC REGIONS EACH 15 MINUTES THERAPEUT 86617 CAYETANO MONTEIRO IC PX 1/> 0 [facility] AREAS INC INC EACH 15 MIN EXERCISES THERAPEUT 87817 CAYETANO MONTEIRO IC PX 1/> 0 [facility] AREAS INC INC EACH 15 MIN EXERCISES MANUAL 02111 CAYETANO MONTEIRO THERAPY 0 [facility] TQS 1/> INC INC REGIONS EACH 15 MINUTES APPLICATI 68055 CAYETANO MONTEIRO ON 0 [facility] MODALITY INC INC 1/> AREAS HOT/COLD PACKS APPLICATI 73222 CAYETANO MONTEIRO ON 0 [facility] MODALITY INC INC 1/> AREAS HOT/COLD PACKS MANUAL 31719 CAYETANO MONTEIRO THERAPY 0 [facility] TQS 1/> INC INC REGIONS EACH 15 MINUTES THERAPEUT 57027 CAYETANO MONTEIRO IC PX 1/> 0 [facility] AREAS INC INC EACH 15 MIN EXERCISES TUBING A7037 DEBORAH CABRERA USED WITH 0 HOME MED HOME MED POSITIVE EQUIP. EQUIP. [employer] PRESSURE DEVICE CONTINUOU E0601 DEBORAH DEBORAH S 0 HOME MED HOME MED POSITIVE EQUIP. EQUIP. [facility] [facility] PRESSURE DEVICE FILTER A7038 DEBORAH DEBORAH DISPBL 0 HOME MED HOME MED USED EQUIP. EQUIP. W/POS [employer] [facility] ARWAY PRESSURE DEVICE FILTER A7039 DEBORAH CHEUNGRELL NON 0 HOME MED HOME MED DISPBL EQUIP. EQUIP. USED [facility] W/POS ARWAY PRESS DEVICE NASL A7034 DEBORAH CABRERA INTRFCE 0 HOME MED HOME MED POS ARWAY EQUIP. EQUIP. 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 EQUIP. E [facility] PRESSURE DEVICE APPLICATI 22137 CAYETANO MONTEIRO ON 0 [facility] MODALITY INC INC 1/> AREAS HOT/COLD PACKS MANUAL 87295 CAYETANO MONTEIRO THERAPY 0 [facility] TQS 1/> INC INC REGIONS EACH 15 MINUTES THERAPEUT 58334 CAYETANO MONTEIRO IC PX 1/> 0 [facility] AREAS INC INC EACH 15 MIN EXERCISES THERAPEUT 25989 CAYETANO MONTEIRO IC PX 1/> 0 [facility] AREAS INC INC EACH 15 MIN EXERCISES MEDICAL 20690 CAYETANO AVERYON NUTRITION 0 [facility] CENTER CENTER ASSMT&IVN TJ INDIV EACH 15 [place] RADEX 09753 CARLOS CEJA, WRIST 2 0 MEDICAL ZHAO [facility] IMAGING ASSOCIATE S APPL 23149 CAYETANO MONTEIRO MODALITY 0 [facility] 1/> AREAS INC INC ELEC STIMJ UNATTENDE D APPLICATI 45967 CAYETANO MONTEIRO ON 0 [facility] MODALITY INC INC 1/> AREAS HOT/COLD PACKS MANUAL 20350 CAYETANO MONTEIRO THERAPY 0 [facility] TQS 1/> INC INC REGIONS EACH 15 MINUTES APPLICATI 98683 CAYETANO MONTEIRO ON 0 [facility] MODALITY INC INC 1/> AREAS HOT/COLD PACKS MANUAL 48141 CAYETANO MONTEIRO THERAPY 0 [facility] TQS 1/> INC INC REGIONS EACH 15 MINUTES THERAPEUT 87188 CAYETANO MONTEIRO IC PX 1/> 0 [facility] AREAS INC INC EACH 15 MIN EXERCISES THERAPEUT 52017 CAYETANO MONTEIRO IC PX 1/> 0 [facility] AREAS INC INC EACH 15 MIN EXERCISES APPL 06128 CAYETANO MONTEIRO MODALITY 0 [facility] 1/> AREAS INC INC PARAFFIN BATH APPLICATI 18925 CAYETANO MONTEIRO ON 0 [facility] MODALITY INC INC 1/> AREAS HOT/COLD PACKS MANUAL 55156 CAYETANO MONTEIRO THERAPY 0 [facility] TQS 1/> INC INC REGIONS EACH 15 MINUTES PHYSICAL 12676 CAYETANO AVERYON THERAPY 0 [facility] RE-EVALUA INC INC TION MANUAL 72499 CAYETANO MONTEIRO THERAPY 0 [facility] TQS 1/> INC INC REGIONS EACH 15 MINUTES APPL 83536 CAYETANO MONTEIRO MODALITY 0 [facility] 1/> AREAS INC INC PARAFFIN BATH THERAPEUT 15836 CAYETANO MONTEIRO IC PX 1/> 0 [facility] AREAS INC INC EACH 15 MIN EXERCISES APPL 16196 CAYETANO MONTEIRO MODALITY 9 [facility] 1/> AREAS INC INC PARAFFIN BATH THERAPEUT 07460 CAYETANO AVERYON IC PX 1/> 9 [facility] AREAS INC INC EACH 15 MIN EXERCISES APPL 66093 CAYETANO MONTEIRO MODALITY 9 [facility] 1/> AREAS INC INC ELEC STIMJ UNATTENDE D MANUAL 91218 CAYETANO MONTEIRO THERAPY 9 [facility] TQS 1/> INC INC REGIONS EACH 15 MINUTES APPLICATI 97797 CAYETANO MONTEIRO ON 9 [facility] MODALITY INC INC 1/> AREAS HOT/COLD PACKS APPLICATI 82047 CAYETANO MONTEIRO ON 9 [facility] MODALITY INC INC 1/> AREAS HOT/COLD PACKS MANUAL 99605 CAYETANO MONTEIRO THERAPY 9 [facility] TQS 1/> INC INC REGIONS EACH 15 MINUTES APPL 94752 CAYETANO MONTEIRO MODALITY 9 [facility] 1/> AREAS INC INC ELEC STIMJ UNATTENDE D THERAPEUT 83502 CAYETANO CAYETANO IC PX 1/> 9 [facility] AREAS INC INC EACH 15 MIN EXERCISES POLYSOM 47381 CAYETANO MONTEIRO 6/>YRS 9 [facility] SLEEP 4/> INC INC ADDL SHAUN ATTND THERAPEUT 27644 CAYETANO MONTEIRO IC PX 1/> 9 [facility] AREAS INC INC EACH 15 MIN EXERCISES APPL 46776 CAYETANO MONTEIRO MODALITY 9 [facility] 1/> AREAS INC INC ELEC STIMJ UNATTENDE D MANUAL 17121 CAYETANO MONTEIRO THERAPY 9 [facility] TQS 1/> INC INC REGIONS EACH 15 MINUTES APPLICATI 64341 CAYETANO MONTEIRO ON 9 [facility] MODALITY INC INC 1/> AREAS HOT/COLD PACKS APPL 41114 CAYETANO MONTEIRO MODALITY 9 [facility] 1/> AREAS INC INC VASOPNEUM ATIC DEVICES APPL 25280 CAYETANO MONTEIRO MODALITY 9 [facility] 1/> AREAS INC INC ELEC STIMJ UNATTENDE D THERAPEUT 40840 CAYETANO MONTEIRO IC PX /> 9 [facility] AREAS INC INC EACH 15 MIN EXERCISES PHYSICAL 92258 CAYETANO MONTEIRO THERAPY 9 [facility] EVALUATIO INC INC N BINOCULAR 33014 KARRIE YOON, 9 KRISTI Akhtar MICROSCOP Y SEPARATE DX PROCEDURE DEBRIDEME 66438 KARRIE YOON, NT 9 KRISTI Akhtar MASTOIDEC JUANCHO CAVITY SIMPLE WRIST L3908 TRACY TRACY HAND 9 YOAV CASON MD ORTHOSIS PSC PSC EXT CONTROL COCK-UP PREFAB RADEX 78243 CAYETANO MONTEIRO WRIST 2 9 [facility] VIEWS INC INC BLOOD 67704 COMBINED COMBINED COUNT 9 PHYSICIAN PHYSICIAN COMPLETE S LAB S LAB AUTO&AUTO DIFRNTL WBC LIPID 27883 COMBINED COMBINED PANEL 9 PHYSICIAN PHYSICIAN S LAB S LAB COMPREHEN 11531 COMBINED COMBINED SIVE 9 PHYSICIAN PHYSICIAN METABOLIC S LAB S LAB PANEL DRUG 72882 COMBINED COMBINED SCREEN 9 PHYSICIAN PHYSICIAN QUANTITAT S LAB S LAB BROOK[place]NN PHENYTOIN TOTAL LIPID 05196 COMBINED COMBINED PANEL 9 PHYSIC[place] [address] COMBINED COMBINED THYROID 9 PHYSICIAN PHYSICIAN STIMULATI S LAB S LAB NG HORMONE TSH RADEX 27049 CAYETANO MONTEIRO WRIST 2 9 [facility] VIEWS INC INC RADEX 05515 HANKS, HANKS, ANKLE 9 DON R DON R COMPLETE MINIMUM 3 VIEWS RADEX 15133 [place], WRIST 2 9 MEDICAL ZHAO P VIEWS IMAGING ASSOCIATE S APPLICATI 22576 BOWEN WISEMAN, ON CAST 9 TRACY TRACY ELBOW FINGER SHORT ARM RADEX 25854 [place] BR[place], WRIST 2 9 MEDICAL ZHAO P VIEWS IMAGING ASSOCIATE S RADEX 09331 CAYETANO MONTEIRO WRIST 2 9 [facility] VIEWS INC INC ANES 43932 [facility] RADIUS 9 ANESTH MELLISA L ULNA OF THE WRIST/MCLEAN BLUEGRASS D BONES CLOSED PX BLOOD 76111 CAYETANO MONTEIRO COUNT 9 [facility] COMPLETE INC INC AUTO&[place] [address] CAYETANO MONTEIRO INFUSION 9 [facility] THERAPY/P INC INC ROPHYLAXI S /DX 1ST TO 1 [place] [address] CAYETANO MONTEIRO INFUSION 9 [facility] THERAPY INC INC PROPHYLAX IS/DX EA HOUR CLOS RDUC 7902 CAYETANO MONTEIRO FRACTURE 9 [facility] INC INC RADIUS&UL NA WITHOUT INTRL FIX CLTX DSTL 97746 BOWEN WISEMAN, RDL 9 TRACY TRACY FX/EPIPHY SL SEP W/MANJ WHEN PERF RADEX 44358 [facility] EMME, HAND 9 MEDICAL STEPHANI MINIMUM 3 IMAG[place] [address] COMBINED COMBINED THYROID 9 PHYSICIAN PHYSICIAN STIMULATI S LAB S LAB NG HORMONE TSH DRUG 15509 COMBINED COMBINED SCREEN 9 PHYSICIAN PHYSICIAN QUANTITAT S LAB S LAB BROOK[place]NN PHENYTOIN TOTAL DRUG 16742 CAYETANO MONTEIRO SCREEN 9 [facility] QUANTITAT INC INC BROOKLYNN PHENYTOIN TOTAL COMPREHEN 83061 CAYETANO MONTEIRO SIVE 9 [facility] [place] [address] CAYETANO MONTEIRO THYROID 9 [facility] STIMULATI INC INC NG HORMONE TSH AMBULANCE A0429 [facility] SERVICE 9 AMBULANCE AMBULANCE BLS SERVICE SERVICE EMERGENCY TRANSPORT GROUND A0425 [facility]ULANCE AMBULANCE PER SERVICE SERVICE STATUTE MILE BLOOD 70837 CAYETANO MONTEIRO COUNT 9 [facility]OSP COMPLETE INC INC AUTO&AUTO DIFRNTL WBC RHYTHM 96955 CAYETANO MONTEIRO ECG 1-3 9 [facility]OSP LEADS INC INC TRACING ONLY W/O I&R ECG 20842 CAYETANO ZUNIGA ROUTINE [address] [facility] W/LEAST PROF SERV 12 LDS I&R ONLY 3D 63161 [facility] BRENNA, RENDERING 9 MEDICAL ZHAO P W/INTERP IMAGING & ASSOCIATE POSTPROCE S SS SUPERVISI ON ECG 51875 CAYETANO MONTEIRO ROUTINE 9 [facility] HOSP ECG INC INC W/LEAST 12 LDS TRCG ONLY W/O I&[place] [address] CAYETANO MONTEIRO HEAD/BRAI 9 [facility]OS[facility] N W/O INC INC CONTRAST MATERIAL OPHTH 55505 [facility] MAGANA [facility] 9 VISION SG M XM&EVAL COMPRHNSV ESTAB PT 1/> [place] [address] COMBINED COMBINED THYROID 9 PHYSICIAN PHYSICIAN STIMULATI S LAB S LAB NG HORMONE TSH DRUG 26015 COMBINED COMBINED SCREEN 9 PHYSICIAN PHYSICIAN QUANTITAT S LAB S LAB BROOK[place] PHENYTOIN TOTAL LIPID 20939 COMBINED COMBINED PANEL 9 PHYSICIAN PHYSICIAN S LAB S LAB GLUCOSE 24042 COMBINED COMBINED TOLERANCE 9 PHYSICIAN PHYSICIAN TEST GTT S LAB S LAB 3 SPECIMENS DRUG 74243 COMBINED COMBINED SCREEN 9 PHYSICIAN PHYSICIAN QUANTITAT S LAB S [place] [address] COMBINED COMBINED THYROID 9 PHYSICIAN PHYSICIAN STIMULATI S LAB S LAB NG HORMONE TSH MICROSURG 57368 KARRIE YOON, TQS REQ 8 KRISTI Akhtar [place] [address] COMBINED COMBINED THYROID 8 PHYSICIAN PHYSICIAN STIMULATI S LAB S LAB NG HORMONE TSH DRUG 56153 COMBINED COMBINED SCREEN 8 PHYSICIAN PHYSICIAN QUANTITAT S LAB S LAB BROOK[place] PHENYTOIN TOTAL DEBRIDEME 32401 KARRIE YOON, NT 8 KRISTI Akhtar MASTOIDEC JUANCHO CAVITY SIMPLE DEBRIDEME 70997 KARRIE YOON, NT 8 KRISTI Akhtar MASTOIDEC JUANCHO CAVITY SIMPLE MICROSURG 06843 KARRIE YOON, TQS REQ 8 KRISTI Akhtar USE OPERATING MICROSCOP E DRUG 67932 COMBINED COMBINED SCREEN 8 PHYSICIAN PHYSICIAN QUANTITAT S LAB S LAB BROOK[place]NN PHENYTOIN TOTAL GENERAL 12781 COMBINED COMBINED HEALTH 8 PHYSICIAN PHYSICIAN PANEL S LAB S LAB SCREENING 35109 [place] Anabel [facility] STEPHANI MAMMOGRAP IMAGING HY ASSOCIATE BILATERAL S COMPUTER- 08921 [place] MEME AIDED 8 MEDICAL STEPHANI DETECTION IMAGING ASSOCIATE SCREENING S MAMMOGRAP HY DUP-SCAN 97219 [place] MEM[place] XTR VEINS 8 MEDICAL STEPHANI IMAGING UNILATERA ASSOCIATE L/LIMITED S STUDY DUPLEX 12452 [place] VIRGILIO CEJA 8 MEDICAL ZHAO P EXTRACRAN IMAGING IAL [place] [address] CAYETANO MONTEIRO THYROID 8 [facility] STIMULATI INC INC NG HORMONE TSH BLOOD 71204 CAYETANO MONTEIRO COUNT 8 [facility] COMPLETE INC INC AUTO&AUTO DIFRNTL WBC COMPREHEN 97716 CAYETANO MONTEIRO SIVE 8 [facility] METABOLIC INC INC PANEL DRUG 82548 CAYETANO MONTEIRO SCREEN 8 [facility] QUANTITAT INC INC BROOKLYNN PHENYTOIN TOTAL LIPID 20928 CAYETANO MONTEIRO PANEL 8 [facility] INC INC RADIOLOGI 70801 LATONYA HANKS C EXAM 8 DON R DON R PELVIS COMPL MINIMUM 3 VIEWS RADIOLOGI 02685 LATONYA HANKS C EXAM 8 DON R DON R PELVIS COMPL MINIMUM 3 VIEWS COMMODE E0163 DEBORAH CABRERA CHAIR 8 HOME MED HOME MED MOBILE OR EQUIP. E[facility]. [facility]ED ARMS DR[facility] 29087 [facility] 8 MED LAB MED LAB QUANTITAT BROOK[place]NN PHENYTOIN TOTAL SBSQ 28254 LATONYA HANKS, NURSING 8 DON R DON R FACILITY CARE/DAY E/M STABLE 10 MIN DRUG 95499 [facility] SCREEN 8 MED LAB MED LAB QUANTITAT [place] PHENYTOIN TOTAL OCCUPATIO 68008 AMY REYES NAL 8 [facility] [place] [address] AMY REYES 1/> AREAS 8 [facility] EA 15 E E MIN GAIT TRAINJ W/STAIR THERAPEUT 37181 AMY REYES ACTVITY 8 [facility] DIRECT PT E E CONTACT EACH 15 MIN SELF-CARE 13769 AMY REYES /HOME 8 [facility] MGMT E E TRAINING EACH 15 MINUTES HOSPITAL 14083 LATONYA HANKS, DISCHARGE 8 DON R DON R DAY MANAGEMEN T 30 MIN/< [place] [address] AMY DIAZT 1/> AREAS 8 HEALTHCAR HEALTHCAR EACH 15 E E MIN NEUROMUSC REEDUCA GROUND A0425 [facility] AMBULANCE AMBULANCE PER SERVICE SERVICE STATUTE MILE PHYSICAL 95451 AMY DIAZT THERAPY 8 [facility]ALTH[facility]ALTHCAR EVALUATIO E E N THERAPEUT 16290 [facility]/> 8 [facility]ALTHCAR AREAS E E EACH 15 MIN EXERCISES SBSQ 04372 [facility] 8 DON R DON R CARE/DAY 25 MINUTES SBSQ 04982 [facility] 8 DON R DON R CARE/DAY 25 MINUTES SBSQ 49694 [facility] 8 DON R DON R CARE/DAY 25 MINUTES RADEX HIP 42508 [place], MEDICAL ZHAO P UNILATERA IMAGING L ASSOCIATE COMPLETE S MINIMUM [address] LOWER 90879 [place], EXTREMITY 8 MEDICAL ZHAO P W/O IMAGING CONTRAST ASSOCIATE MATERIAL S 3D 91079 [place], RENDERING 8 MEDICAL ZHAO P IMAGING W/INTERP& ASSOCIATE POSTPROC S DIFF WORK STATION RADIOLOGI 35348 [place] 8 MEDICAL ZHAO P EXAMINATI IMAGING ON PELVIS ASSOCIATE 1/2 S VIEWS RADEX 13174 [facility] MED[facility] ZHA[facility] P LUMBOSACR IMAGING AL ASSOCIATE MINIMUM 4 S VIEWS RADEX 76672 [place] BR[place], SACRUM & 8 MEDICAL ZHAO P COCCYX IMAGING MINIMUM 2 ASSOCIATE VIEWS S INITIAL 37636 [facility] 8 DON R DON R CARE/DAY 50 MINUTES RADIOLOGI 77297 [place] MEJIA 8 CALISTA Carrillo EXAMINATI RADIOLOGY ON PELVIS 1/2 ASSOCIATE VIEWS S PSC GROUND A0425 [facility] MILEAGE 8 [facility] PER STATUTE AMBULANCE AMBULANCE MILE AMBULANCE A0429 [facility] SERVICE 8 CINTHIA CO CINTHIA CO BLS EMERGENCY AMBULANCE AMBULANCE TRANSPORT RADEX HIP 24939 TYNER Anabel MEJIA UNILATERA RADIOLOGY L COMPLETE ASSOCIATE MINIMUM 2 S PSC VIEWS DEBRIDEME 67774 KARRIE YOON, KORTNEY 8 KRISTI Akhtar MASTOIDEC JUANCHO CAVITY CMPLX ANESTHESI 40262 [facility] ZABRINA, A 8 ANESTH FAUSTO A EXTERNAL OF THE MIDDLE & BLUEGRASS INNER EAR W/BX NOS MICROSURG 51864 KARRIE YOON, TQS REQ 8 KRISTI Akhtar USE OPERATING MICROSCOP E LEVEL III 85728 PATHOLOGY PATHOLOGY SURG 8 & & PATHOLOGY CYTOLOGY CYTOLOGY LAB LAB GROSS&TANI ROSCOPIC EXAM MICROSURG 12194 KARRIE YOON, TQS REQ 8 KRISTI Hermilo KRISTI Akhtar USE OPERATING MICROSCOP E DEBRIDEME 67018 KARRIE YOON, NT 8 KRISTI BERRY Hermilo MASTOIDEC JUANCHO CAVITY SIMPLE Encounters Encounter Start End Date Code Location Performer Type Date OFFICE 92389 A C KILPELA OUTPATIEN 7 7 NANCY FIELDS T VISIT PSC [address]ES [address] [facility] YOON OUTPATIEN 7 7 PHYSICIAN T VISIT S GROUP [address]ES [address] [facility] YOON OUTPATIEN 7 7 PHYSICIAN T VISIT S GROUP [address]ES [address] [facility] YOON OUTPATIEN 7 7 PHYSICIAN T VISIT S GROUP 15 MINUTES OFFICE 19235 A C KILPELA OUTPATIEN 7 7 NANCY FIELDS T VISIT PSC 15 MINUTES OFFICE 19670 A C KILPELA OUTPATIEN 7 7 NANCY FIELDS T VISIT PSC [address]ES [address] [facility] YOON OUTPATIEN 7 7 PHYSICIAN T VISIT S GROUP 15 MINUTES EMERGENCY 19242 [facility] 7 7 [facility] DEPARTMEN INC T VISIT MODERATE SEVERITY EMERGENCY 94805 CHIN ALEJANDRO 7 7 PHYSICIAN DEPARTMEN S, [facility] T VISIT HIGH/URGE NT SEVERITY HOSPITAL [facility] - 7 7 [facility] OUTPATIEN INC T OFFICE 79498 A C KILPELA OUTPATIEN 7 7 NANCY FIELDS T VISIT PSC 15 MINUTES OFFICE 29790 A C K[facility]PELA OUTPATIEN 7 7 NANCY FIELDS T VISIT PSC 15 MINUTES HOSPITAL [facility] - 7 7 [facility] OUTPATIEN INC T OFFICE 27117 [facility] RONDA CONSULTAT 7 7 PHYSICIAN ION S GROUP [facility] PATIENT 40 MIN OFFICE 62271 A C KILPELA OUTPATIEN 6 6 NANCY FIELDS T VISIT PSC [address]ES [address] [facility] YOON OUTPATIEN 6 6 PHYSICIAN KERI T VISIT S GROUP 10 MINUTES HOSPITAL [facility] - 6 6 [facility]PAT[facility]PATI[facility] - 6 6 [facility] OUTPATIEN INC T OFFICE 93907 [facility] YOON OUTPATIEN 6 6 PHYSICIAN KERI T VISIT S GROUP 15 MINUTES [facility] - 6 6 [facility] OUTPATIEN INC [facility] - 6 6 [facility] OUTPATIEN INC T OFFICE 04414 [facility] YOON OUTPATIEN 6 6 PHYSICIAN KERI T VISIT S GROUP 10 MINUTES HOSPITAL [facility] - 6 6 [facility] OUTPATIEN INC T OFFICE 80602 A C KILPELA OUTPATIEN 6 6 NANCY JUAREZ T VISIT PSC 25 MINUTES OFFICE 19882 A C [place] M[facility]Y OUTPATIEN 6 6 NANCY FIELDS T VISIT PSC 15 MINUTES [facility] - 6 6 [facility] OUTPATIEN INC T OFFICE 47237 [facility] YOON OUTPATIEN 6 6 PHYSICIAN KERI T VISIT S GROUP 15 MINUTES [facility] 99641 A C KILPELA PREVENTIV 6 6 NANCY JUAREZ E MED EST [facility] PATIENT 40-[address] [facility] YOON OUTPATIEN 6 6 PHYSICIAN KERI T VISIT S GROUP 15 MINUTES OFFICE 56618 A C NANCY OUTPATIEN 6 6 NANCY OLSON T VISIT PSC 15 MINUTES OFFICE 74301 [place] HILLIARD OUTPATIEN 6 6 NANCY FIELDS JEMaxine T VISIT PSC [address]ES [address] [facility] YOON OUTPATIEN 6 6 PHYSICIAN KERI T VISIT S GROUP 15 MINUTES OFFICE 73559 [place] [facility] OUTPATIEN 5 5 NANCY FIELDS T VISIT PSC 25 MINUTES OFFICE 44329 [place] [facility] OUTPATIEN 5 5 NANCY FIELDS T VISIT PSC 15 MINUTES HOME [facility], 5 5 HOME INPATIENT HEALTH AGENCY [facility], 5 5 HOME INPATIENT HEALTH AGENCY OFFICE 06223 [place] [facility] OUTPATIEN 5 5 NANCY FIELDS T VISIT PSC 15 MINUTES OFFICE 46992 [place] [facility] OUTPATIEN 5 5 NANCY FIELDS T VISIT PSC [address]ES [address] [facility] YOON OUTPATIEN 5 5 PHYSICIAN KERI T VISIT S GROUP 15 MINUTES HOSPITAL [facility] - 5 5 [facility] OUTPATIEN INC T EMERGENCY 12165 [facility] 5 5 [facility] DEPARTMEN INC T VISIT LOW/MODER SEVERITY EMERGENCY 61517 [facility] 5 5 PHYSICIAN H[facility] VIS[facility] MODERATE SEVERITY OFFICE 99192 [facility] YOON OUTPATIEN 5 5 PHYSICIAN KERI T NEW 30 S GROUP MINUTES OFFICE 32606 [place] FERGUSON OUTPATIEN 5 5 NANCY FIELDS T VISIT PSC 25 MINUTES OFFICE 28235 [place] [facility] OUTPATIEN 5 5 NANCY FIELDS T VISIT PSC 15 MINUTES OFFICE 15146 [place] [facility] OUTPATIEN 5 5 NANCY FIELDS T VISIT PSC 15 MINUTES OFFICE 44008 A C [place] [facility] OUTPATIEN 4 4 NANCY FIELDS T VISIT PSC 15 MINUTES OFFICE 41060 [facility] OUTPATIEN 4 4 KERI KERI T VISIT 15 MINUTES HOSPITAL [facility] - 4 4 [facility] OUTPATIEN INC T OFFICE 49022 [facility] OUTPATIEN 4 4 KERI KERI T VISIT 15 MINUTES OFFICE 34095 [place] MARTY [place] MARTY OUTPATIEN 4 4 T VISIT 15 MINUTES OFFICE 75408 FLOR[place]INO MARTY [place] MARTY OUTPATIEN 4 4 T VISIT 25 MINUTES OFFICE 03917 [place] MARTY [place] MARTY OUTPATIEN 4 4 T VISIT 15 MINUTES [facility] T OFFICE 92654 FLORENTINOOBEY SANTAMARIAES MARTY OUTPATIEN 4 4 T VISIT 25 MINUTES OFFICE 24711 [facility] OUTPATIEN 4 4 KERI KERI T VISIT 15 MINUTES OFFICE 32879 [place] MARTY MUNOZES MARTY OUTPATIEN 4 4 T VISIT 15 MINUTES OFFICE 17775 [place] MARTY MUNOZES MARTY OUTPATIEN 3 3 T VISIT 10 MINUTES OFFICE 86812 FLORENTINOOBEY SANTAMARIAES MARTY OUTPATIEN 3 3 T VISIT 15 MINUTES OFFICE 15350 A C FLOR[place]INO MARTY OUTPATIEN 3 3 NANCY FIELDS T VISIT PSC 15 MINUTES OFFICE 33765 [place] MARTY OUTPATIEN 3 3 NANCY FIELDS T VISIT PSC 15 MINUTES OFFICE 37596 A C ARMINDA OUTPATIEN 3 3 NANCY JUAREZ T VISIT PSC 15 MINUTES [facility] T HOME [facility], 3 3 HOME OUTPATIEN HEALTH T AGENCY OFFICE 06994 Maxine ARDONZAK OUTPATIEN 3 3 NANCY Fraga NEW 30 PSC MINUTES OFFICE 19173 LATONYA HOLGUINS OUTPATIEN 3 3 DON DON T VISIT 15 MINUTES OFFICE 21659 KARRIE YOON OUTPATIEN 3 3 KERI KERI T VISIT 15 MINUTES EMERGENCY 52580 [facility] T VISIT LOW/MODER SEVERITY [facility] T EMERGENCY 53227 STEFFANY JETER 3 3 III ADDIS III [facility] T VISIT HIGH/URGE NT SEVERITY [facility] [place] T OFFICE 51863 KARRIE LIMON OUTPATIEN 3 3 KERI KERI T VISIT 10 MINUTES OFFICE 76320 LATONYA HOLGUINS OUTPATIEN 3 3 DON DON T VISIT 15 MINUTES [facility] 3 [facility] T [facility] [place] [facility] 3 3 [facility] T PERIODIC 27161 LATONYA HOLGUINS PREVENTIV 3 3 DON DON E MED EST PATIENT 40-64YRS OFFICE 91075 KARRIE YOON OUTPATIEN 3 3 KERI KERI T VISIT 25 MINUTES HOME [facility], 3 3 HOME OUTPATIEN HEALTH T AGENCY HOME [facility] 2 2 HOME OUTPATIEN HEALTH T AGENCY EMERGENCY 44393 [place] 2 2 [facility] DEPARTMEN INC T VISIT LOW/MODER SEVERITY EMERGENCY 31141 STEFFANY JETER 2 2 III ADDIS III ADDIS DEPARTMEN T VISIT HIGH/URGE NT SEVERITY [facility] [place] [facility] 2 [facility] OFFICE 95379 HANKS HANKS OUTPATIEN 2 2 DON DON T VISIT 25 MINUTES [facility] [place] [facility] 2 2 [facility] OUTPATIEN [facility] EMERGENCY 73305 NAHOMY C[place]A 2 2 [facility] T VISIT HIGH/URGE NT SEVERITY EMERGENCY 52049 [place] 2 2 [facility] T VISIT LOW/MODER SEVERITY OFFICE 34488 [facility]ANKS HANKS OUTPATIEN 2 2 DON DON T VISIT 25 MINUTES OFFICE 78777 [facility] HANKS OUTPATIEN 2 2 DON DON T VISIT 25 MINUTES [facility] [place] [facility] 2 2 [facility] OUTPATIEN [facility] OFFICE 18066 HANKS HANKS OUTPATIEN 2 2 DON DON T VISIT 25 MINUTES OFFICE 33230 HANKS HANKS OUTPATIEN 2 2 DON DON T VISIT 15 MINUTES [facility] [place] [facility] 2 2 [facility] OUTPATIEN [facility] [place] [facility] 2 2 [facility]IEN [facility] OFFICE 75793 HANKS HANKS OUTPATIEN 2 2 DON DON T VISIT 15 MINUTES [facility], 2 2 [facility] OUTPATIEN & HOME HE T [facility], 2 2 [facility] OUTPATIEN & HOME HE OFFICE 15635 [facility]AN[facility] HANKS OUTPATIEN 2 2 DON DON T VISIT 15 MINUTES OFFICE 54032 [facility] HANKS OUTPATIEN 1 1 DON DON T VISIT 15 MINUTES [facility] [place] [facility] 1 [facility] [place] [facility] 1 [facility] INC T OFFICE 40091 [facility]AN[facility] OUTPATIEN 1 1 DON DON T VISIT 15 MINUTES OFFICE 47019 [place] [facility] 1 1 [facility] T VISIT CLINIC 25 PSC MINUTES OFFICE 04286 HANKS HANKS OUTPATIEN 1 1 DON DON T VISIT 15 MINUTES [facility] 82602 [place] [facility] 25 PSC MINUTES OFFICE 60532 HANKS HANKS OUTPATIEN 1 1 DON DON T VISIT 15 MINUTES EMERGENCY 80046 [place] 1 1 [facility] DEPART[facility] INC T VISIT HIGH/URGE NT SEVERITY EMERGENCY 98462 [facility] HERNANDEZ DEPT 1 1 EMERGENCY VISIT SERVICES HIGH SEVERITY& THREAT [facility] [place] [facility] T OFFICE 86827 KARRIE YOON OUTPATIEN 1 1 KERI KERI T VISIT 15 MINUTES EMERGENCY 81137 PEDRITO JETER DEPT 1 1 EMERGENCY III ADDIS VISIT SERVICES HIGH SEVERITY& THREAT [facility] [place] - 1 1 [facility] T EMERGENCY 35068 [place] 1 1 [facility] DEPARTMEN [facility] T VISIT HIGH/URGE NT SEVERITY [facility] [place] [facility] T OFFICE 26755 HANKS HANKS OUTPATIEN 1 1 DON DON T VISIT 15 MINUTES [facility] [place] [facility] T OFFICE 78471 ALEKSANDER [facility] CON[facility]ULTAT 1 1 [facility] NEW/ESTAB PSC PATIENT 60 MIN [facility] [place] [facility] 1 1 [facility] OFFICE 98046 LATONYA HOLGUINS OUTPATIEN 1 1 DON DON T VISIT 15 MINUTES EMERGENCY 99076 [place] 1 1 [facility] DEPARTMEN [facility] T VISIT HIGH/URGE NT SEVERITY [facility] [place] [facility] 1 1 [facility] EMERGENCY 49661 PEDRITO COREA DEPT 1 1 EMERGENCY TANI VISIT SERVICES HIGH SEVERITY& THREAT [facility] [place] - 1 1 [facility] [place] [facility] 0 [facility] OFFICE 53713 HANKS HANKS OUTPATIEN 0 0 DON DON T VISIT 15 MINUTES EMERGENCY 86050 PEDRITO HERNANDEZ DEPT 0 0 EMERGENCY VISIT SERVICES HIGH SEVERITY& THREAT FUN EMERGENCY 66405 [place] 0 0 [facility]MODER SEVERITY OFFICE 25679 CONRAD MARTINES OUTPATIEN 0 0 RUPERT RUPERT T NEW 45 MINUTES OFFICE 22607 HANKS HANKS OUTPATIEN 0 0 DON DON T VISIT 15 MINUTES OFFICE 46966 YOON YOON OUTPATIEN 0 0 KERI KERI T VISIT 15 MINUTES [facility] [place] [facility] T OFFICE 68830 HANKS HANKS OUTPATIEN 0 0 DON DON T VISIT 15 MINUTES OFFICE 60228 YOON YOON OUTPATIEN 0 0 KERI KERI T VISIT 10 MINUTES OFFICE 56243 HANKS HANKS OUTPATIEN 0 0 DON DON T VISIT 15 MINUTES [facility] [place] [facility] INC T EMERGENCY 24538 [place] 0 0 [facility] DEPARTMEN INC T VISIT HIGH/URGE NT SEVERITY OFFICE 76476 LATONYA HANKS OUTPATIEN 0 0 DON DON T VISIT 15 MINUTES [facility] [place] [facility] 0 0 [facility] T OFFICE 81662 LATONYA HANKS, OUTPATIEN 0 0 DON R DON R T VISIT 15 MINUTES OFFICE 16510 YOONKARRIE, OUTPATIEN 0 0 KRISTI G KRISTI G T VISIT 15 MINUTES [facility] [place] [facility] 0 0 [facility] T HOSPITAL [place] [facility] 0 0 [facility] T OFFICE 58512 KARRIE YOON OUTPATIEN 0 0 KRISTI G KRISTI G T VISIT 15 MINUTES [facility] [place] [facility] 0 0 [facility] T PERIODIC 46098 LATONYA HANKS, PREVENTIV 0 0 DON R DON R E MED EST PATIENT [id number] OFFICE 83588 CONRAD MARTINES OUTPATIEN 0 0 , EDWIN EDWIN T VISIT W W 15 MINUTES [facility] [place] [facility] 0 0 [facility] T OFFICE 33925 LATONYA HANKS, OUTPATIEN 0 0 DON R DON R T VISIT 15 MINUTES EMERGENCY 57621 [place] 0 0 [facility] DEPARTMEN INC T VISIT HIGH/URGE NT SEVERITY [facility] [place] [facility] 0 0 [facility] T OFFICE 53283 LATONYA HANKS, OUTPATIEN 0 0 DON R DON R T VISIT 15 MINUTES [facility] [place] [facility] [place] [facility] T OFFICE 97629 BOWEN WISEMAN OUTPATIEN 0 0 TRACY TRACY T VISIT 15 MINUTES [facility] [place] [facility] 0 [facility] [place] [facility] 0 [facility] [place] - 9 9 [facility] [place] - 9 9 [facility] T OFFICE 62225 LATONYA HANKS OUTPATIEN 9 9 DON R DON R T VISIT 15 MINUTES OFFICE 13896 BOWEN WISEMAN OUTPATIEN 9 9 TRACY TRACY T VISIT 15 MINUTES OFFICE 33445 BOWEN WISEMAN OUTPATIEN 9 9 TRACY TRACY T VISIT 15 MINUTES OFFICE 66555 LATONYA HANKS OUTPATIEN 9 9 DON R DON R T VISIT 15 MINUTES OFFICE 75582 LATONYA HANKS OUTPATIEN 9 9 DON R DON R T VISIT 15 MINUTES [facility] [place] [facility] 9 [facility] INC [facility] [place] [facility] 9 9 [facility] T OFFICE 89936 LATONYA HAKNS OUTPATIEN 9 9 DON R DON R T VISIT 15 MINUTES [facility] [place] [facility] 9 9 [facility] INC [facility] [place] [facility] 9 [facility] [place] [facility] 9 9 [facility] T OFFICE 41848 BOWEN WISEMAN OUTPATIEN 9 9 TRACY TRACY T NEW 45 MINUTES EMERGENCY 95407 PEDRITO COREA, 9 9 EMERGENCY [facility] SERVICES T VISIT MODERATE ASSOCIATE SEVERITY S [facility]OSP[facility] [place] - 9 9 [facility] OUT[facility]IEN [facility] T OFFICE 27519 LATONYA HANKS OUTPATIEN 9 9 DON R DON R T VISIT 15 MINUTES OFFICE 00612 LATONYA HANKS OUTPATIEN 9 9 DON R DON R T VISIT 15 MINUTES [facility] [place] - 9 9 [facility] OUT[facility]IEN INC T EMERGENCY 20425 [facility] DEPT 9 9 [facility] VISIT INC HIGH SEVERITY& THREAT [facility] HOME 44688 FAMILY VISIT EST 9 9 HOME PT HEALTH [facility] INC SEVERITY 40 MINUTES HOME [facility], 9 9 HOME OUTPATIEN [facility] HOME 36005 FAMILY VISIT EST 9 9 HOME PT [facility] SEVERITY 40 MINUTES HOME [facility], 9 9 HOME OUTPATIEN [facility], 9 9 HOME OUTPATIEN [facility] HOME 29316 FAMILY VISIT EST 9 9 HOME PT HEALTH [facility] INC SEVERITY 40 MINUTES OFFICE 80412 LATONYA HANKS OUTPATIEN 9 9 DON R DON R T VISIT 15 MINUTES OFFICE 45582 LATONYA HANKS OUTPATIEN 8 8 DON R DON R T VISIT 15 MINUTES [facility] [place] - 8 8 [facility] INC T OFFICE 26430 LATONYA HANKS OUTPATIEN 8 8 DON R DON R T VISIT 15 MINUTES EMERGENCY 01131 CLARY SALDANA, 8 8 [facility] T VISIT ON MODERATE SEVERITY EMERGENCY 03295 [place] 8 8 [facility] DE[facility] INC T VISIT LOW/MODER SEVERITY [facility] [place] - 8 8 [facility] T [facility] [place] - 8 8 [facility] T [facility] [place] - 8 8 [facility] T OFFICE 62076 LATONYA HANKS OUTPATIEN 8 8 DON R DON R T VISIT 15 MINUTES OFFICE 01422 LATONYA HANKS OUTPATIEN 8 8 DON R DON R T VISIT 15 MINUTES OFFICE 45508 LATONYA HANKS OUTPATIVARSHA 8 8 DON R DON R T VISIT 15 MINUTES OFFICE 41616 LATONYA HANKS OUTPATIEN 8 8 DON R DON R T VISIT 15 MINUTES HOME [facility], 8 8 [facility] 8 8 [facility] - OTHER E OFFICE 37987 KARRIE YOON OUTPATIEN 8 8 KRISTI BERRY G T VISIT 15 MINUTES [facility] 8 8 [facility] - OTHER E [facility] [place] [facility] 8 8 [facility] INPATIENT INC OFFICE 60048 KARRIE YOON OUTPATIEN 8 8 KRISTI BERRY G T VISIT 15 MINUTES
--- OUTSIDE RECORDS SUMMARY | 2017-04-07 20:10 | External Medical Summary Rpt | CCD ---
Author Author , ALISABRITTNEY Organization [facility] Address Unknown Phone [email or web address] Care Team Providers Care Ballet Teacher Name Role Phone A Angeles CRUZ MD [...] Unavailable EDWIN ENRIQUEZ, Unavailable Unavailable EDWIN MARTINES [facility] Unavailable [place], [facility] [place] [facility] Unavailable Un[place] [facility], [facility]available Unavailable [facility] Unavailable Unavailable [facility], [facility] Unavailable Unavailable [facility], [facility] FEDERATED Unavailable Unavailable TRANSPORTATION SER, [facility] NAHOMY KIM Unavailable Unavailable TANI ERIKA COREA, Unavailable Unavailable ERIKA COREA [facility] Unavailable [facility] Unavailable Unavailable INC, [facility] Unavailable [facility]available HOSPITAL P, [facility] CALISTA MEJIA, Unavailable Unavailable CALISTA MEJIA HINES Unavailable Unavailable HOWARDBRADFORDHOWARD Unavailable Unavailable MARIETTA HOWARD, Unavailable Unavailable MARIETTA HOWARD A [facility], Unavailable Unavailable [facility] Unavailable Unavailable IMAGING [facility], [facility] [...] JR DWI, AUDIE Unavailable Unavailable JR DWI [facility] Unavailable Unavailable 11, [facility] 11 [facility] Unavailable Unavailable ACTION, [facility], Unavailable Unavailable [facility] NAVIN HARRY, NAVIN Unavailable Unavailable HARRY [facility], [facility]available Unavailable [facility] Unavailable Unavailable SERVICES, [facility] CARMICHAEL [facility] Unavailable Unavailable AMBULANCE, [facility] LORRAINE ZUNIGA JR Unavailable Unavailable F, [facility]RAINE [facility]UNIG[facility] Unavailable Unavailable [facility] ZHAO CEJA, Unavailable Unavailable ZHAO CEJA FLORENTINO MARTY, FLORENTINO MARTY Unavailable Unavailable FLORENTINO MARTY, FLORENTINO MARTY Unavailable Unavailable MULBERRY HARRY, Unavailable Unavailable MULBERRY HARRY [facility] Unavailable Unavailable [facility], [facility] & Unavailable Unavailable HOME HE, [facility] REG[facility], [facility], [facility] Unavailable [facility]available LABS, [facility], Unavailable Unavailable PLL[facility], [facility]OLOGY [facility] CY[facility]Y Unavailable Unavailable LAB, [facility]OLOGY [facility] LAB [facility], Unavailable Unavailable [facility], Unavailable Unavailable [facility] RONDA, RONDA Unavailable Unavailable RICO DO, Unavailable Unavailable JACKY CASON MD Unavailable Unavailable [facility], TRAYC CASON MD [facility] SCIFRES ANG, SCIFRES Unavailable Unavailable ANG [...] SOURCE FAUSTO GERBER, Unavailable Unavailable FAUSTO GERBER [facility] # Unavailable Unavailable [id number], [facility] # [id number] FLAVIA ALEJANDRO Unavailable Unavailable [facility] Unavailable Unavailable AGENCY, [facility] WEHRMAN III ADDIS, Unavailable Unavailable WEHRMAN III ADDIS WEDEIDRE III ADDIS, Unavailable Unavailable WEVISHNU III NANCY LEA Unavailable Unavailable WHITNEY Purpose Continuity of Care Document - 07-04-2007 through 2016 Problems Code Diagnosis DOS Provider Status R748 ABNORMAL 02-21-2017 [facility] OF [employer] [facility]. OTHER SERUM ENZYMES H6691 OTITIS 01-29-2017 [facility] MEDIA PHYSICIANS UNSPECIFIED GROUP RIGHT EAR H7011 CHRONIC 01-29-2017 [facility] MASTOIDITIS PHYSICIANS RIGHT EAR GROUP H7091 UNSPECIFIED 01-01-2017 [facility] PHYSICIANS MASTOIDITIS GROUP RIGHT EAR H7441 POLYP OF 01-01-2017 [facility] RIGHT PHYSICIANS MIDDLE EAR GROUP E010 IODINE-DEFI 12-11-2016 [facility] CIENCY PHYSICIANS RELATED GROUP DIFFUSE ENDEMIC GOITER E069 THYROIDITIS 12-11-2016 [facility] PHYSICIANS UNSPECIFIED GROUP R69 ILLNESS 12-11-2016 FEDERATED UNSPECIFIED TRANSPORTAT ION SER D649 ANEMIA 11-16-2016 [facility] UNSPECIFIED YOGESH HOLDINGS E785 HYPERLIPIDE 11-16-2016 [facility] GWEN YOGESH UNSPECIFIED HOLDINGS J01325 EPILEPSY 11-16-2016 [facility] UNS NOT YOGESH [...] R1310 DYSPHAGIA 10-16-2016 A Angeles CRUZ UNSPECISABEL FEILDS PSC [id number] UNS FOREIGN 10-16-2016 A Angeles CRUZ BODY PSC LARYNX CAUS OTH INJURY INIT ENC Z6825 BODY MASS 10-16-2016 A Angeles CRUZ INDEX BMI PSC 25.0-25.9 ADULT E039 HYPOTHYROID 10-12-2016 [facility] ISM PHYSICIANS UNSPECIFIED GROUP [id number] FOOD IN 10-09-2016 [facility] ESOPHAGUS PHYSICIANS, CAUSING OTH PLLC INJURY INITIAL ENC Z0389 ENCOUNTER 10-09-2016 [facility] OT MEDICAL SUSPCT DZ & IMAGING ASS COND RULED OUT R2233 LOC 09-07-2016 A Angeles CRUZ SWELLING PSC MASS & LUMP UPPER LIMB BILATERAL K811 CHRONIC 07-05-2016 [facility] CHOLECYSTIT PHYSICIANS IS GROUP B70022 ENCOUNTER 07-05-2016 [facility] P AL CARIOVASCUL AR EXAM D74149 ENCOUNTER 07-05-2016 [facility] P AL RESPIRATORY EXAM H49573 ENCOUNTER 07-05-2016 [facility] P AL LABORATORY EXAM J309 ALLERGIC 05-31-2016 A Angeles CRUZ RHINITIS [facility] UNSPECIFIED H7013 CHRONIC 05-26-2016 [facility] MASTOIDITIS PHYSICIANS BILATERAL GROUP H6522 CHRONIC 05-11-2016 [facility] SEROUS [facility] OTITIS INC MEDIA LEFT EAR R4702 DYSPHASIA 05-11-2016 [facility] R7989 OTHER SPEC 05-11-2016 [place] ABNORMAL MEDICAL FINDINGS IMAGING ASS BLOOD CHEMISTRY R945 ABNORMAL 05-11-2016 [facility] RESULTS OF [facility] LIVER INC FUNCTION STUDIES E876 HYPOKALEMIA 05-08-2016 [facility] R21 RASH AND 04-07-2016 [facility] OTHER YOGESH NONSPECIFIC HOLDINGS SKIN ERUPTION R0781 PLEURODYNIA 02-22-2016 [facility] R252 CRAMP AND 02-17-2016 [facility] SPASM YOGESH HOLDINGS R5383 OTHER 02-17-2016 [facility] FATIGUE YOGESH HOLDINGS R0981 NASAL 01-04-2016 A Angeles CRUZ CONGESTION PSC Z1231 ENCOUNTER 11-18-2015 [place] SCREENING MEDICAL MAMMO MALIG IMAGING ASS NEOPLASM BREAST H905 UNSPECIFIED 11-11-2015 [facility] PHYSICIANS SENSORINEUR GROUP AL HEARING LOSS X25835 ENCOUNTER 11-05-2015 [facility] COMBAT ENGINEER EXAM YOGESH GENERAL RTN HOLDINGS W/O ABNORMAL FIND H6092 UNSPECIFIED 09-22-2015 [facility] OTITIS PHYSICIANS EXTERNA GROUP LEFT EAR H7012 CHRONIC 09-22-2015 [facility] MASTOIDITIS PHYSICIANS LEFT EAR GROUP D77189 SPONDYLOSIS 07-01-2015 [facility] W/O PHYSICIANS MYELOPATH/R GROUP ADICULOPATH Y CERV RGN 4011 ESSENTIAL 03-05-2015 A Angeles PATEL MD PSC N, BENIGN 51187 03-05-2015 [facility]ERATED TRANSPORTAT ION SER 9331 FOREIGN 02-22-2015 [facility] BODY IN PHYSICIANS LARYNX GROUP 4019 UNSPECIFIED 02-15-2015 [facility] ESSENTIAL [facility] HYPERTENSIO INC N 5303 STRICTURE 02-15-2015 [facility] AND [facility] STENOSIS OF INC ESOPHAGUS 73786 OTHER 02-15-[address] [facility] MEDICAL INVOLVING IMAGING ASS HEAD AND NECK 99877 DYSPHAGIA 02-15-2015 [facility] UNSPECIFIED PHYSICIANS, PLLC V140 PERSONAL 02-15-2015 [facility] HISTORY OF [facility] ALLERGY TO INC PENICILLIN 3814 NONSUPPRATV 01-20-2015 [facility] OTITIS PHYSICIANS MEDIA NOT GROUP SPEC ACUT/CHRON 3839 UNSPECIFIED 01-20-2015 [facility] PHYSICIANS MASTOIDITIS GROUP 4730 CHRONIC 01-20-2015 [facility] MAXILLARY PHYSICIANS SINUSITIS GROUP 2449 UNSPECIFIED 11-24-2014 [facility] HYPOTHYROID ISM 49893 UNSPEC 11-24-2014 A Angeles CRUZ EPILEPSY PSC WITHOUT MENTION INTRACT EPILEPSY 4779 ALLERGIC 11-24-2014 A Angeles CRUZ RHINITIS PSC CAUSE UNSPECIFIED 3804 IMPACTED 09-10-2014 YOON KERI CERUMEN 3831 CHRONIC 09-10-2014 [facility] KERI MASTOIDITIS 15499 ESOPHAGEAL 07-02-2014 A Angeles CRUZ REFLUX PSC 52138 SIMPLE/UNSP 04-09-2014 [facility] IFIED [facility] SEROUS OTITIS MEDIA 77396 UNSPECIFIED 04-09-2014 [facility], [employer] [place] [address] [place] 04-09-2014 [facility] P AND MASTOID 24020 OTHER CHEST 01-20-2014 FLORENTINO MARTY PAIN 3674 PRESBYOPIA 12-12-2013 SCIFRES ANG 4770 ALLERGIC 10-31-2013 FLORENTINO MARTY RHINITIS DUE TO POLLEN V7612 OTHER 09-30-2013 [facility] SCREENING [facility] MAMMOGRAM INC 2859 UNSPECIFIED 09-15-2013 [facility] 4610 ACUTE 09-04-2013 YOON KERI MAXILLARY SINUSITIS 4612 ACUTE 09-04-2013 Y[facility] KERI ETHMOIDAL SINUSITIS 7840 HEADACHE 08-07-2013 FLORENTINO MARTY 83610 CRAMP OF 05-01-2013 FLORENTINO MARTY LIMB 90494 HYPERTENSIO 02-12-2013 Maxine CELESTIN MD PSC 11485 OTHER 02-11-2013 [facility] CONVULSIONS [facility] INC 10486 OBSTRUCTIVE 2012 KARRIE SAAVEDRA SLEEP APNEA 71876 ASTHMA, 12-20-2012 [facility] UNSPECIFIED [facility] , INC UNSPECIFIED STATUS 9351 FOREIGN 12-20-2012 WEHRMAN III BODY IN ADDIS ESOPHAGUS 2409 GOITER, 12-12-2012 [facility] UNSPECIFIED [facility] INC 2459 UNSPECIFIED 12-09-2012 KARRIE SAAVEDRA THYROIDITIS 7881 DYSURIA 10-14-2012 [facility] DON 94739 BLISTERS 10-14-2012 [facility] WITH DON EPIDERMAL LOSS DUE TO BURN-BREAST 2724 OTHER AND 09-12-2012 [facility] UNSPECIFIED [facility] INC HYPERLIPIDE GWEN V7231 ROUTINE 09-06-2012 [facility] GYNECOLOGIC DON AL EXAMINATION 50840 OSTEOARTHRO 06-27-2012 [facility] S UNSPEC HEALTH WHETHER AGENCY GEN/LOC UNSPEC SITE 7812 ABNORMALITY 06-27-2012 [facility] OF GAIT HEALTH AGENCY 7993 UNSPECIFIED 06-27-2012 [facility] DEBILITY HEALTH AGENCY V571 OTHER 06-27-2012 [facility] PHYSICAL HEALTH THERAPY AGENCY 6259 UNSPEC 06-08-2012 [place] [facility] IMAGING ASS W/FEMALE GENITAL ORGANS 00670 PAIN IN 06-08-2012 [place] JOINT MEDICAL PELVIC IMAGING ASS REGION AND THIGH 7295 PAIN IN 06-08-2012 [facility] SOFT [facility] TISSUES OF SERVICE LIMB 8439 SPRAIN&STRA 06-08-2012 WEHRMAN III IN OF ADDIS UNSPECIFIED SITE OF HIP&THIGH E8889 UNSPECIFIED 06-08-2012 [facility] SERVICE 6980 PRURITUS 06-05-2012 [facility] ANI DON 41323 OSTEOARTHRO 06-04-2012 [place] S UNSPEC MEDICAL GEN/LOC IMAGING ASS PELV REGION&THIG H 85654 DEGEN 06-04-2012 [place] LUMBAR/LUMB MEDICAL OSACRAL IMAGING ASS INTERVERTEB RAL DISC 7243 SCIATICA 06-04-2012 [facility] INC 8472 LUMBAR 06-04-2012 [facility] SPRAIN AND [facility] STRAIN INC 7821 RASH AND 05-31-2012 [facility] OTHER DON NONSPECIFIC SKIN ERUPTION 75864 PAIN IN 05-03-2012 [facility] JOINT, DON SHOULDER REGION 4554 EXTERNAL 02-23-2012 [facility] THROMBOSED DON HEMORRHOIDS 931 FOREIGN 01-29-2012 [facility] BODY IN EAR DON 44374 HEMANGIOMA 01-05-2012 [facility] OF SKIN AND DON SUBCUTANEOU S TISSUE 3813 OTHER&UNSPE 07-12-2011 [facility] C CHRONIC DON NONSUPPURAT [place] OTITIS MEDIA 08285 LOC-REL 04-11-2011 NEW EPILEPSY & [facility] ES W/SPS CLINIC PSC W/O INTRACTABL EPIL 318 OTHER 03-27-2011 SUPPORT SPECIFIED SOURCE INTELLECTUA L DISABILITIE S 2761 HYPOSMOLALI 2010 [facility] TY AND/OR EMERGENCY HYPONATREMI SERVICES A 7802 SYNCOPE AND 2010 [facility] COLLAPSE AMBULANCE SERVICE 54849 NAUSEA WITH 2010 [facility] VOMITING [facility] INC 54776 VOMITING 2010 [facility] ALONE [facility]ERGENCY SERVICES 4739 UNSPECIFIED 12-18-2010 [facility] SINUSITIS EMERGENCY SERVICES 7804 DIZZINESS 12-18-2010 [facility] AND EMERGENCY GIDDINESS SERVICES 7862 COUGH 12-18-2010 [facility] 7906 OTHER 10-04-2010 [facility] ABNORMAL [facility] BLOOD INC CHEMISTRY 13312 OTHER 09-27-2010 NEW CONDITIONS [facility] PSC 460 ACUTE 09-19-2010 [facility] NASOPHARYNG DON ITIS 7810 ABNORMAL 08-20-2010 [facility] INVOLUNTARY AMBULANCE MOVEMENTS SERVICE 02203 MUSCLE 05-13-2010 [facility] WEAKNESS [facility]ERGENCY (GENERALIZE SERVICES D) 53235 OTHER 05-13-2010 [facility] AND [facility] FATIGUE INC 16471 HYPERSOMNIA 04-08-2010 MARTINES WITH SLEEP RUPERT APNEA UNSPECIFIED 92295 HYPERSOMNIA 04-08-2010 MARTINES RUPERT UNSPECIFIED 42720 UNSPECIFIED 03-31-2010 [facility] VIC INFECTIVE OTITIS EXTERNA 5589 OTH&UNSPEC 03-18-2010 [facility] NONINFECTIO DON US GASTROENTER ITIS&COLITI S 7847 EPISTAXIS 03-03-2010 YOON KERI 93593 ABDOMINAL 02-11-2010 [facility] PAIN RIGHT DON LOWER QUADRANT 20505 ABDOMINAL 02-11-2010 [facility] PAIN, LEFT DON LOWER QUADRANT 3829 UNSPECIFIED 12-22-2009 [facility], OTITIS DON R MEDIA 11767 THYROTOX 11-02-2009 KARRIE, W/O KRISTI Akhtar GOITER/OTH CAUSE W/O CRISIS 73581 OPEN 08-19-[address] [facility] FRACTURE HOME MED OTHER [employer] SPECIFIED PART PELVIS OTHER 58914 EPILEPSY 08-13-2009 DESHAUN HANKS PG GEOVANNA Casiano /PP UNSPEC EPIS CARE/NA 41965 REFLUX 07-28-2009 LATONYA ESOPHAGITIS GEOVANNA R 10361 UNSPECIFIED 07-28-2009 GEOVANNA HANKS CONSTIPATIO N 58040 CLOSED 07-27-2009 [facility] FRACTURE [facility] UNSPECIFIED INC PART RADIUS W/ULNA 2630 MALNUTRITIO 07-13-2009 [facility] CO N [facility] DEGREE 37282 OTHER 07-13-2009 [place] CLOSED MEDICAL FRACTURES IMAGING OF DISTAL ASSOCIATES END OF RADIUS 54379 CLOSED 07-13-2009 [facility] FRACTURE OF TRACY DISTAL END OF ULNA V653 DIETARY 07-13-2009 [facility] CO [facility] E AND CENTER COUNSELING 462 ACUTE 03-17-2009 [facility] PHARYNGITIS GEOVANNA R 4660 ACUTE 03-17-2009 [place] [address] CLOSED 03-09-2009 [facility] FRACTURE OF [facility] INC UNSPECIFIED PART OF RADIUS 23298 UNSPECIFIED 03-09-2009 [place] CLOSED MEDICAL FRACTURE OF IMAGING CARPAL ASSOCIATES BONE 49110 UNSPECIFIED 02-03-2009 LATONYA SITE OF GEOVANNA Casiano ANKLE SPRAIN AND STRAIN 24333 CLOSED 01-12-2009 [facility] COLLES [facility] FRACTURE INC 41893 CLOSED 01-08-2009 [facility] FRACTURE OF [facility] LOWER END INC OF RADIUS WITH ULNA E8490 PLACE OF 01-07-2009 [place] OCCURRENCE, MEDICAL HOME IMAGING ASSOCIATES E8842 ACCIDENTAL 01-07-2009 [place] FALL FROM MEDICAL CHAIR IMAGING ASSOCIATES 920 CONTUSION 12-04-2008 [facility] FACE AMBULANCE SCALP AND SERVICE NECK EXCEPT EYE 96916 OTHER 11-05-2008 COMBINED ABNORMAL PHYSICIANS GLUCOSE LAB V5869 LONG-TERM 10-23-2008 [facility] (CURRENT) HEALTH USE OF CARE INC OTHER MEDICATIONS V5883 ENCOUNTER 10-23-2008 [facility] FOR [facility]ALTH THERAPEUTIC CARE INC DRUG MONITORING 0911 ACUTE URIS 09-15-2008 MIKE HANKS UNSPECIFIED SITE 7823 EDEMA 01-08-2008 GEOVANNA HANKS 7242 LUMBAGO 01-02-2008 [facility] INC 7245 UNSPECIFIED 01-02-2008 [facility] 7859 OTHER 12-05-2007 [place] SYMPTOMS MEDICAL INVOLVING IMAGING CARDIOVASCU ASSOCIATES LAR SYSTEM 7820 DISTURBANCE 11-25-2007 [facility], OF SKIN DON R SENSATION 8088 UNSPECIFIED 11-13-2007 [facility], CLOSED DON R FRACTURE OF PELVIS 4618 OTHER ACUTE 09-18-2007 LATONYA, SINUSITIS DON R 808 FRACTURE OF 09-02-2007 DEBORAH PELVIS HOME MED EQUIP. [employer] 3489 UNSPECIFIED 08-29-2007 [facility] CONDITION HEALTH OF BRAIN AGENCY V1588 PERSONAL 08-29-2007 [facility] HISTORY OF HEALTH FALL AGENCY 8208 CLOSED 07-31-2007 [facility] FRACTURE AMBULANCE UNSPECIFIED SERVICE PART NECK FEMUR 8082 CLOSED 07-27-2007 [place] FRACTURE OF MEDICAL PUBIS IMAGING ASSOCIATES 77325 UNS ADVRS 07-27-2007 [facility] EFF OTH RX [facility] MEDICINAL&B INC IOLOGICAL SBSTNC 7937 NONSPC ABN 07-26-2007 CARMICHAEL FIND RAD RADIOLOGY & OTH EXM ASSOCIATES [...] 07 08 7. 10 00 HO Ac DC 06 -1 -0 50 00 ME ti [...] 00 7- 0- 00 06 TO ve DC 51 20 20 07 WN IL 80 [...] 00 7- 6- 00 06 TO ve DC 51 20 20 07 WN IL 80 [...] 00 6- 1- 00 06 TO ve DC 51 20 20 07 WN IL 80 [...] 00 6- 0- 00 06 TO ve DC 51 20 20 07 WN IL 80 [...] 8- 8- 00 SI 11 HE ve DC 02 20 20 DE NS ED 20 [...] 3- 2- 00 SI 47 HE ve DC 75 20 20 DE NS IL 98 [...] 3- 1- 00 SI 47 HE ve DC 75 20 20 DE NS IL 98 [...] E TA 10 BL 05 ET 91 DC 68 06 06 0 15 3 WA [...] 09 11 11 E 9 PH DO DC AR N OP MA R CY 50 [...] 09 [address] DC AR OR OP MA G CY 50 OF MC G CY SP NT RA HI Y AN A LI 00 12 08 [address] Ac SI 17 -0 -[address] 37 EP ti NO 23 1- - 00 SI 44 HE ve DC 75 20 20 DE NS IL 96 [...] 1- 9- 00 SI 44 HE ve DC 75 20 20 DE NS IL 96 [...] 1- 0- 00 SI 44 HE ve DC 75 20 20 DE NS IL 96 [...] NO 23 1 SI 44 HE ve DC 75 20 20 DE NS IL 96 [...] 2- 3- 00 SI 51 ON ve DC 02 20 20 DE ED 20 [address] SO AR OR LO MA G NE CY 4 OF MG CY DO NT SE HI PK AN A LI 00 12 04 [address] Ac SI 17 -0 -[address] 37 EP ti NO 23 1 SI 44 HE ve DC 75 20 20 DE NS IL 96 [...] 2- 2- 00 SI 51 ON ve DC 02 20 20 DE ED 20 10 [...] 23 1- - SI 44 HE ve DC 75 20 20 DE NS IL 96 [...] 1- 8- 00 SI 44 HE ve DC 75 20 20 DE NS IL 96 [...] 23 1- 4- SI 44 HE ve DC 75 20 20 DE NS IL 96 [...] 1- 7- 00 SI 44 HE ve DC 75 20 20 DE NS IL 96 [...] 3- 9- 00 SI 09 HE ve DC 75 20 20 DE NS IL 96 [...] 5- 4- 00 SI 66 HE ve DC 02 20 20 DE NS ED 20 [...] 00 10 15 ME 25 No Ac DC 06 -0 -1 .0 D 42 t [...] 6- 0- 00 SI 22 Av ve DC 02 20 20 DE ai ED 20 [...] 00 27 14 ME 25 No Ac DC 46 -0 -0 .0 D 42 t [...] 00 60 30 ME 25 No Ac DC 46 -0 -2 .0 D 42 t [...] 00 10 15 ME 25 No Ac DC 06 -0 -2 .0 D 42 t [...] Procedure DOS Code Location Performer Comment COMPREHEN 97646 [facility] OF [facility] OF [facility] 7 [place], [place], [employer]. INC. PANEL NONEMERG A0120 FEDERATED FEDERATED TRNSPRT: 7 MINI-BUS TRANSPORT TRANSPORT MTN [facility]OTH SYS NONEMERG A0120 FEDERATED FEDERATED TRNSPRT: 7 MINI-BUS TRANSPORT TRANSPORT MTN [facility]/OTH SYS LIPID 98668 A C KILPELA PANEL 7 NANCY FIELDS PSC COLLECTIO 05102 A C ARMINDA N VENOUS 7 NANCY FIEL[place] [address] LAB [facility] LAB MAX FREE 7 YOGESH YOGESH THYROXINE HOLDINGS HOLDINGS DRUG 92895 LAB [facility] SCREEN 7 YOGESH YOGESH QUANTITAT HOLDINGS HOLDINGS BROOKLYNN OXCARBAZE PINE GENERAL 41915 [facility] LAB AMX HEALTH 7 [facility] PANEL HOLDINGS HOLDINGS OPHTH 99078 [facility] 7 XM&EVAL COMPRHNSV ESTAB PT 1/> NONEMERG A0120 FEDERATED FEDERATED TRNSPRT: 7 MINI-BUS TRANSPORT TRANSPORT MTN ATION SER ATION SER AREA/OTH SYS UNCLASSIF J3490 [facility] IED DRUGS 7 [facility] INC INC THER 83486 [facility] PROPH/DX 7 [facility] NJX IV INC INC PUSH SINGLE/1S T SBST/DRUG RADIOLOGI 56376 [place] MEM[facility] C 7 MEDICAL EXAMINATI IMAGING ON CHEST ASS SINGLE VIEW FRONTAL NONEMERG A0120 FEDERATED FEDERATED TRNSPRT: 7 MINI-BUS TRANSPORT TRANSPORT MTN ATION SER ATION SER AREA/OTH SYS NONEMERG A0120 FEDERATED FEDERATED TRNSPRT: 7 MINI-BUS TRANSPORT TRANSPORT MTN ATION SER ATION SER AREA/OTH SYS COMPREHEN 74452 [facility] SIVE 7 [facility] METABOLIC INC INC PANEL COLLECTIO 50677 [facility] MONTEIRO N VENOUS 7 [facility] BLOOD INC INC VENIPUNCT URE ECG 48033 [facility] GARCIA ROUTINE 7 [facility] W/LEAST P 12 LDS I&R ONLY ECG 89233 [facility] MONTEIRO ROUTINE 7 [facility] ECG INC INC W/LEAST 12 LDS TRCG ONLY W/O I&R THERAPEUT 24971 Maxine TREVINO 6 NANCY FIELDS PROPHYLAC PSC TIC/DX INJECTION SUBQ/IM NONEMERG A0120 FEDERATED FEDERATED TRNSPRT: 6 MINI-BUS TRANSPORT TRANSPORT MTN ATION SER ATION SER AREA/OTH SYS UNCLASSIF J3490 [facility] IED DRUGS 6 [facility] INC INC HEPATOBIL 00019 [facility] SYST 6 [facility] IMAG INC INC INC GB W/PHARMA INTERVENJ NONEMERG A0120 FEDERATED FEDERATED TRNSPRT: 6 MINI-BUS TRANSPORT TRANSPORT MTN ATION SER ATION SER AREA/OTH SYS 83168 [facility] ABDOMINAL 6 [facility] REAL INC INC TIME W/IMAGE LIMITED RADEX 30204 [facility] MON[facility] ESOPHAGUS 6 [facility] INC INC COLLECTIO 51183 A C KILPELA N VENOUS 6 NANCY FIELDS JEA BLOOD PSC VENIPUNCT URE NONEMERG A0120 FEDERATED FEDERATED TRNSPRT: 6 MINI-BUS TRANSPORT TRANSPORT MTN ATION SER ATION SER AREA/OTH SYS COMPREHEN 92169 [facility] SIVE 6 DIAGNOSTI DIAGNOSTI [place] [address] [facility] THYROID 6 [facility]OS[facility] STIMULATI [place] [address] [facility] FREE 6 [facility] THYROXINE INC INC NONEMERG A0120 FEDERATED FEDERATED TRNSPRT: 6 MINI-BUS TRANSPORT TRANSPORT MTN ATION SER ATION SER AREA/OTH SYS NONEMERG A0120 FEDERATED FEDERATED TRNSPRT: 6 MINI-BUS TRANSPORT TRANSPORT MTN ATION SER ATION SER AREA/OTH SYS COMPREHEN 69514 [facility] LAB MAX SIVE 6 [facility] METABOLIC HOLDINGS HOLDINGS PANEL COLLECTIO 63816 A C KILPELA N VENOUS 6 NANCY FIELDS JEA BLOOD PSC VENIPUNCT URE NONEMERG A0120 FEDERATED FEDERATED TRNSPRT: 6 MINI-BUS TRANSPORT TRANSPORT MTN ATION SER ATION SER AREA/OTH SYS RADEX 39852 [facility] ESOPHAGUS 6 [facility] INC INC NONEMERG A0120 FEDERATED FEDERATED TRNSPRT: 6 MINI-BUS TRANSPORT TRANSPORT MTN ATION SER ATION SER ARE[place] [address] [facility] FREE 6 [facility] [place] [address] [facility] THYROID 6 [facility]OSP STIMULATI INC INC NG HORMONE TSH COLLECTIO [id number] CAYETANO MONTEIRO N VENOUS 6 [facility] BLOOD INC INC VENIPUNCT URE NONEMERG A0120 FEDERATED FEDERATED TRNSPRT: 6 [facility] TRANSPORT TRANSPORT MTN ATION SER ATION SER AREA/OTH SYS NONEMERG A0120 FEDERATED FEDERATED TRNSPRT: 6 [facility] TRANSPORT TRANSPORT MTN ATION SER ATION SER AREA/OTH SYS RADEX 89391 CAYETANO MONTEIRO RIBS UNI 6 [facility] W/POSTERO INC INC ANT CH MINIMUM 3 [place] [address] LAB MAX [place] MAGNESIUM 6 YOGESH E O2 HOLDINGS NONEMERG A0120 FEDERATED FEDERATED TRNSPRT: 6 [facility] TRANSPORT TRANSPORT MTN ATION SER ATION [place] AREA/[place] [address] LAB MAX LAB MAX FREE 6 YOGESH YOGESH [place] [address] LAB MAX LAB MAX THYROID 6 YOGESH YOGESH STIMULATI HOLDINGS HOLDINGS NG HORMONE TSH DRUG 69223 LAB MAX LAB MAX SCREEN 6 YOGESH YOGESH QUANTITAT HOLDINGS HOLDINGS BROOKLYNN OXCARBAZE PINE COMPREHEN 30070 LAB MAX LAB MAX SIVE 6 YOGESH YOGESH METABOLIC HOLDINGS HOLDINGS PANEL INJ J0702 A C FLORENTINO MARTY BETAMETHA 6 NANCY FIELDS SONE PSC ACETATE & PHOSPHATE 3 MG INJECTION J1030 A C A C 6 NANCY CRUZ MD METHYLPRE PSC PSC DNISOLONE ACETATE 40 MG NONEMERG A0120 FEDERATED FEDERATED TRNSPRT: 6 [facility] TRANSPORT TRANSPORT MTN ATION SER ATION SER AREA/OTH SYS THERAPEUT 26757 A C A C IC 6 NANCY CRUZ MD PROPHYLAC PSC PSC TIC/DX INJECTION SUBQ/IM NONEMERG A0120 FEDERATED FEDERATED TRNSPRT: 6 [facility] TRANSPORT TRANSPORT MTN ATION SER ATION SER AREA/OTH SYS COMPUTER- 16720 CAYETANO MONTEIRO AIDED 6 [facility] MEM [...] ATION SER ATION SER AREA/OTH SYS CYTP 61401 LAB MAX LAB MAX CERV/VAG 6 YOGESH YOGESH AUTO THIN HOLDINGS HOLDINGS LAYER PREP MNL SCREEN NONEMERG A0120 FEDERATED FEDERATED TRNSPRT: 6 [facility] TRANSPORT TRANSPORT MTN ATION SER ATION SER AREA/OTH SYS THYROID 38150 LAB MAX LAB MAX HORM 6 YOGESH YOGESH UPTK/THYR HOLDINGS HOLDINGS OID HORMONE BINDING RATIO DRUG 88832 LAB MAX LAB MAX SCREEN 6 YOGESH YOGESH QUANTITAT HOLDINGS HOLDINGS [place] [address] LAB MAX LAB MAX THYROID 6 YOGESH YOGESH STIMULATI HOLDINGS HOLDINGS NG HORMONE TSH BASIC 83025 LAB MAX LAB MAX METABOLIC 6 YOGESH YOGESH PANEL [place] [address] LAB MAX LAB MAX THYROXINE 6 YOGESH [place] [address] LAB MAX LAB MAX TRIIODOTH 6 YOGESH YOGESH YRONINE HOLDINGS HOLDINGS T3 TOTAL TT3 LIPOPROTE 20042 [place] CRUZ IN DIR 6 NANCY OLSON TERESA HIGH PSC DENSITY CHOLESTER OL GLUCOSE 70925 A C NANCY QUANTITAT 6 NANCY OLSON BROOKLYNN BLOOD PSC XCPT REAGENT STRIP BLOOD 79819 A C NANCY COUNT 6 NANCY OLSON COMPLETE PSC AUTO&AUTO DIFRNTL WBC TRANSFERA 15115 A C NANCY SE 6 NANCY OLSON ASPARTATE PSC AMINO AST SGOT TRANSFERA 71569 A C NANCY SE 6 NANCY O[place] [address] A C CRUZ TRIGLYCER 6 CRUZ MD WHITNEY IDES PSC CHOLESTER 48247 Maxine CRUZ OL 6 NANCY FIELDS WHITNEY [...] ATION SER ATION SER AREA/OTH SYS BLOOD 08500 Maxine GOOD MARTY COUNT 5 NANCY FIELDS COMPLETE PSC AUTO&[place] [address] [facility] THYROID 5 DIAGNOSTI DIAGNOSTI STIMULATI CS CS NG HORMONE TSH BASIC 27004 QUE[facility] QUEST METABOLIC 5 DIAGNOSTI DIAGNOSTI PANEL [...] ATION SER ATION SER AREA/OTH SYS RADIOLOGI 40418 [facility] 5 MEDICAL YAZ EXAMINATI IMAGING ON NECK ASS SOFT TISSUE NONEMERG A0120 [facility] TRNSPRT: 5 [facility] TRANSPORT TRANSPORT MTN ATION SER ATION SER AREA/OTH SYS NONEMERG A0120 [facility] TRNSPRT: 5 [facility] TRANSPORT TRANSPORT MTN ATION SER ATION SER AREA/OTH SYS NONEMERG A0120 [facility] TRNSPRT: 5 [facility] TRANSPORT TRANSPORT MTN ATION SER ATION SER AREA/[place] [address] QUE[facility] THYROID 5 DIAGNOSTI DIAGNOSTI STIMULATI CS CS NG HORMONE TSH NONEMERG A0120 [facility] TRNSPRT: 5 [facility] TRANSPORT TRANSPORT MTN ATION SER ATION SER AREA/OTH SYS NONEMERG A0120 [facility] TRNSPRT: 5 [facility] TRANSPORT TRANSPORT MTN ATION SER ATION SER AREA/OTH SYS DEBRIDEME 37948 KARRIE YOON NT 5 KERI KERI MASTOIDEC JUANCHO CAVITY SIMPLE NONEMERG A0120 [facility] TRNSPRT: 5 [facility] TRANSPORT TRANSPORT [facility] AREA/OTH SYS NONEMERG A0120 FEDERATED FEDERATED TRNSPRT: 5 [facility] TRANSPORT TRANSPORT [facility] AREA/OTH SYS NONEMERG A0120 FEDERATED FEDERATED TRNSPRT: 4 TRANS MINI-BUS TRANSPORT [facility]G [facility] ARE[place] [address] QUEST QUEST THYROID 4 DIAGNOSTI DIAGNOSTI STIMULATI CS CS NG HORMONE TSH NONEMERG A0120 FED[facility]ATED FEDERATED TRNSPRT: 4 TRANS MINI-BUS TRANSPORT [facility]BL[facility]G [facility] AREA/OTH SYS ECG 20707 CAYETANO BRONSON JR ROUTINE 4 [facility] W/LEAST P 12 LDS I&R ONLY ANESTHESI 42610 [facility] 4 ANESTH SHE EXTERNAL OF THE MIDDLE & BLUE INNER EAR W/[place] N[place] [address] CAYETANO MONTEIRO XTRNL 4 [facility] AUDITORY INC INC CANAL ANES TYMPANOST 65521 CAYETANO MONTEIRO TAISHA 4 [facility] GENERAL INC INC ANESTHESI A LEVEL III 01631 [facility], PEDRITO SURG 4 [facility] SOLE PATHOLOGY GROSS&TANI ROSCOPIC EXAM INJECTION S0077 CAYETANO MONTEIRO 4 [facility] CLINDAMYC INC INC IN PHOSPHATE 300 MG DEBRIDEME 14876 KARRIE YOON NT 4 KERI KERI MASTOIDEC JUANCHO CAVITY CMPLX BASIC 30786 CAYETANO MONTEIRO METABOLIC 4 [facility] PANEL INC INC CALCIUM TOTAL BLOOD 94734 CAYETANO MONTEIRO COUNT 4 [facility] COMPLETE INC INC AUTO&AUTO DIFRNTL WBC NONEMERG A0120 FED[facility] FEDERATED TRNSPRT: 4 TRANS [facility] TRANSPORT [facility] AREA/OTH SYS NONEMERG A0120 FEDERATED FEDERATED TRNSPRT: 4 TRANS MINI-BUS TRANSPORT SERVBLUEG MTN ATION SER JUSTINE AREA/OTH SYS DEBRIDEME 38904 YOON YOON NT 4 KERI KERI MASTOIDEC JUANCHO CAVITY SIMPLE NONEMERG A0120 FEDERATED FEDERATED TRNSPRT: 4 TRANS [facility]BUS TRANSPORT [facility] AREA/OTH SYS BLOOD 66375 FLORENTINO MARTY FLORENTINO MARTY COUNT 4 COMPLETE AUTO&AUTO DIFRNTL WBC COMPREHEN 95263 [facility] QUEST SIVE 4 DIAGNOSTI DIAGNOSTI METABOLIC CS CS PANEL NONEMERG A0120 FEDERATED FEDERATED TRNSPRT: 4 TRANS [facility] TRANSPORT [facility] AREA/OTH SYS DEBRIDEME 17436 YOON YOON NT 4 KERI KERI MASTOIDEC JUANCHO CAVITY SIMPLE ECG 27889 FLORENTINO MARTY FLORENTINO MARTY ROUTINE 4 ECG W/LEAST 12 LDS W/I&R NONEMERG A0120 FEDERATED FEDERATED TRNSPRT: 4 TRANS [facility] TRANSPORT [facility]BL[facility] JUST[facility] AREA/OTH SYS NONEMERG A0120 FEDERATED FEDERATED TRNSPRT: 4 TRANS [facility]BUS TRANSPORT [facility]BLUEG [facility] AREA/OTH SYS DEBRIDEME 31123 KARRIE YOON NT 4 KERI KERI MASTOIDEC JUANCHO CAVITY SIMPLE OPHTH 31482 [facility] 4 ANG ANG XM&EVAL COMPRHNSV ESTAB PT 1/> NONEMERG A0120 FEDERATED FEDERATED TRNSPRT: 4 TRANS MINI-BUS TRANSPORT SERVBLUEG [facility] AREA/OTH SYS NONEMERG A0120 FEDERATED FEDERATED TRNSPRT: 4 [facility]-BUS TRANSPORT TRANSPORT [facility] AREA/OTH SYS SCREENING G0202 CAYETANO MONTEIRO 4 [facility] MAMMOGRAP INC INC HY KEVIN INCL CAD WHEN PERFORMD NONEMERG A0120 FEDERATED FEDERATED TRNSPRT: 4 MINI-BUS TRANSPORT TRANSPORT [facility] AREA/OTH SYS COMPUTER- 33573 CAYETANO MONTEIRO AIDED 4 [facility] DETECTION INC INC SCREENING MAMMOGRAP HY BLOOD 86406 FLORENTINO SANTAMARIAES MARTY COUNT 4 COMPLETE AUTO&[place] [address] QUEST QUEST THYROID 4 DIAGNOSTI DIAGNOSTI STIMULATI [...] ATION SER ATION SER AREA/OTH SYS DEBRIDEME 01242 YOON KARRIE NT 3 KERI KERI MASTOIDEC JUANCHO CAVITY SIMPLE NONEMERG A0120 FEDERATED FEDERATED TRNSPRT: 3 MINI-BUS TRANSPORT TRANSPORT MTN ATION SER ATION SER AREA/OTH SYS NONEMERG A0120 FEDERATED FEDERATED TRNSPRT: 3 MINI-BUS TRANSPORT TRANSPORT MTN ATION SER ATION SER AREA/OTH SYS DEBRIDEME 53355 KARRIE YOON NT 3 KERI KERI MASTOIDEC JUANCHO CAVITY SIMPLE NONEMERG A0120 FEDERATED FEDERATED TRNSPRT: 3 MINI-BUS TRANSPORT TRANSPORT MTN ATION SER ATION SER AREA/OTH SYS NONEMERG A0120 LKLP CAC LKLP CAC TRNSPRT: 3 INC INC MINI-BUS REGION 11 REGION 11 MTN AREA/[place] [address] [facility]ST [facility]ST THYROID 3 DIAGNOSTI DIAGNOSTI STIMULATI CS CS NG HORMONE TSH COLLECTIO 82351 Maxine GOOD MARTY N VENOUS 3 NANCY FIELDS BLOOD PSC VENIPUNCT URE LIPID 59942 Maxine GOOD MARTY PANEL 3 NANCY FIELDS PSC BASIC 88915 [facility] QUEST METABOLIC 3 DIAGNOSTI DIAGNOSTI PANEL CS CS CALCIUM TOTAL GLUCOSE 95424 Maxine GOOD MARTY QUANTITAT 3 NANCY FIELDS BROOKLYNN BLOOD PSC XCPT REAGENT STRIP DIRECT G0154 [facility] SKILL [facility] AGENCY AGENCY HH/HOSPIC E EA 15 MIN QUANTITAT 34352 CAYETANO MONTEIRO ION DRUG 3 [facility] NOT INC INC ELSEWHERE SPECIFIED DIRECT G0154 [facility] SKILL 3 [facility] AGENCY AGENCY HH/HOSPIC E EA 15 MIN NONEMERG A0120 LKLP CAC LKLP CAC TRNSPRT: 3 INC INC MINI-BUS REGION 11 REGION 11 MTN AREA/OTH SYS GROUND A0425 [facility] MILEAGE 3 AMBULANCE AMBULANCE PER SERVICE SERVICE STATUTE MILE AMBULANCE A0429 [facility] SERVICE 3 AMBULANCE AMBULANCE BLS SERVICE [place] [address] CAYETANO MONTEIRO THYROID 3 [facility] STIMULATI INC INC NG HORMONE TSH US SOFT 73554 CAYETANO MONTEIRO TISSUE 3 [facility] HEAD & INC [place] [address] CAYETANO MONTEIRO FREE 3 [facility] THYROXINE INC INC URNLS DIP 02263 [facility] HANKS 3 DON DON STICK/TAB LET RGNT NON-AUTO W/O MICRSCP COMPUTER- 87378 MEME MEME AIDED 3 YAZ YAZ DETECTION SCREENING MAMMOGRAP HY SCREENING G0202 MEME MEME 3 YAZ YAZ MAMMOGRAP HY KEVIN INCL CAD WHEN PERFORMD NONEMERG A0120 LKLP LKLP TRNSPRT: 3 [facility] MINI-BUS ACTION ACTION PRN AREA/[place] [address] CAYETANO MONTEIRO THYROID 3 [facility] STIMULATI INC INC NG HORMONE TSH LIPID 27622 CAYETANO MONTEIRO PANEL 3 [facility] INC INC DRUG 49221 CAYETANO MONTEIRO SCREEN 3 [facility] QUANTITAT INC INC BROOKLYNN PHENYTOIN TOTAL COMPREHEN 78150 CAYETANO MONTEIRO SIVE 3 [facility] METABOLIC INC INC PANEL CYTP 93981 [facility]ST SLIDES 3 DIAGNOSTI DIAGNOSTI CERV/VAG [...] HH/HOSPIC E EA 15 MIN GROUND A0425 [facility] 2 AMBULANCE AMBULANCE PER SERVICE SERVICE STATUTE MILE AMBULANCE A0429 [facility] SERVICE 2 AMBULANCE AMBULANCE BLS SERVICE SERVICE EMERGENCY TRANSPORT RADIOLOGI 10436 [place] [facility] 2 MEDICAL YAZ EXAMINATI IMAGING ON PELVIS ASS 1/2 VIEWS RADEX HIP 49969 [place] [facility] 2 MEDICAL YAZ UNILATERA IMAGING L ASS COMPLETE MINIMUM 2 VIEWS RADEX HIP 95997 CAYETANO MONTEIRO 2 [facility] UNILATERA INC INC L COMPLETE MINIMUM 2 VIEWS RADEX 98833 [place] [facility] HIPS 2 MEDICAL YAZ BILATERAL IMAGING 2 VIEWS ASS ANTEROPOS T PELVIS RADIOLOGI 06765 [facility] MEDICAL YAZ EXAMINATI IMAGING ON PELVIS ASS 1/2 VIEWS RADEX 39066 [facility] SPINE 2 MEDICAL YAZ LUMBOSACR IMAGING AL ASS MINIMUM 4 VIEWS RADEX 45921 LATONYA HANKS SHOULDER 2 DON DON COMPLETE MINIMUM 2 VIEWS NONEMERG A0120 [facility]: 2 [facility] MINI-BUS ACTION ACTION MTN AREA/OTH SYS INCISION 61778 LATONYA HANKS THROMBOSE 2 DON DON D HEMORRHOI D EXTERNAL NONEMERG A0120 [facility] TR[facility]: 2 [facility] MINI-BUS ACTION ACTION MTN AREA/OTH SYS COMPREHEN 62205 CAYETANO MONTEIRO SIVE 2 [facility] METABOLIC INC INC PANEL NONEMERG A0120 [facility] TR[facility]: 2 [facility] MINI-BUS ACTION ACTION MTN AREA/OTH SYS DESTRUCTI 27870 LATONYA HANKS ON 2 DON DON PREMALIGN ANT LESION 1ST NONEMERG A0120 [facility] TRNS[facility]: 2 [facility] Lookery-BUS ACTION ACTION MTN AREA/OTH SYS NONEMERG A0120 [facility] TRNSPRT: 2 [facility] MINI-BUS ACTION ACTION MTN AREA/OTH SYS COMPREHEN 44571 CAYETANO MONTEIRO SIVE 2 [facility] METABOLIC INC INC PANEL DRUG 88383 CAYETANO MONTEIRO SCREEN 2 [facility] QUANTITAT INC INC BROOKLYNN PHENYTOIN TOTAL LIPID 94557 CAYETANO MONTEIRO PANEL 2 [place] [address] CAYETANO MONTEIRO THYROID 2 [facility] STIMULATI INC INC NG HORMONE TSH SCREENING G0202 [facility] 2 MEDICAL YAZ MAMMOGRAP IMAGING HY KEVIN ASS INCL CAD WHEN PERFORMD COMPUTER- 47223 [facility] VALENTINE AIDED 2 MEDICAL YAZ DETECTION IMAGING [...] HOME HLTH/HOSP ICE EA 15 MIN OPHTH 23334 [facility] 2 VISION ANG XM&EVAL COMPRHNSV ESTAB PT 1/> [place] [address] CAYETANO MONTEIRO THYROID 1 [facility] STIMULATI INC INC NG HORMONE TSH LIPID 59548 CAYETANO MONTEIRO PANEL 1 [facility] INC INC DRUG 10676 CAYETANO MONTEIRO SCREEN 1 [facility] QUANTITAT INC INC BROOKLYNN PHENYTOIN TOTAL COMPREHEN 07974 CAYETANO MONTEIRO SIVE 1 [facility] METABOLIC INC INC PANEL QUANTITAT 78269 CAYETANO MONTEIRO ION DRUG 1 [facility] NOT INC INC ELSEWHERE SPECIFIED COMPREHEN 06573 CAYETANO MONTEIRO SIVE 1 [facility] METABOLIC INC INC PANEL BLOOD 55602 CAYETANO MONTEIRO COUNT 1 [facility] COMPLETE INC INC AUTO&AUTO DIFRNTL WBC SELF-CARE 21076 SUPPORT SUPPORT /HOME 1 SOURCE SOURCE MGMT TRAINING EACH 15 MINUTES SELF-CARE 90170 SUPPORT SUPPORT /HOME 1 SOURCE SOURCE MGMT TRAINING EACH 15 MINUTES SELF-CARE 42079 SUPPORT SUPPORT /HOME 1 SOURCE SOURCE MGMT TRAINING EACH 15 MINUTES SELF-CARE 99355 SUPPORT SUPPORT /HOME 1 SOURCE SOURCE MGMT TRAINING EACH 15 MINUTES SELF-CARE 96064 SUPPORT SUPPORT /HOME 1 SOURCE SOURCE MGMT TRAINING EACH 15 MINUTES SELF-CARE 03402 SUPPORT SUPPORT /HOME 1 SOURCE SOURCE MGMT TRAINING EACH 15 MINUTES SELF-CARE 71640 SUPPORT SUPPORT /HOME 1 SOURCE SOURCE MGMT TRAINING EACH 15 MINUTES SELF-CARE 17363 SUPPORT SUPPORT /HOME 1 SOURCE SOURCE MGMT TRAINING EACH 15 MINUTES SELF-CARE 69615 SUPPORT SUPPORT /HOME 1 SOURCE SOURCE MGMT TRAINING EACH 15 MINUTES SELF-CARE 39532 SUPPORT SUPPORT /HOME 1 SOURCE SOURCE MGMT TRAINING EACH 15 MINUTES SELF-CARE 20911 SUPPORT SUPPORT /HOME 1 SOURCE SOURCE MGMT TRAINING EACH 15 MINUTES QUANTITAT 02726 CAYETANO CAYETANO ION DRUG 1 [facility] NOT INC INC ELSEWHERE SPECIFIED BLOOD 58534 CAYETANO MONTEIRO COUNT 1 [facility] COMPLETE INC INC AUTO&AUTO DIFRNTL [facility] G0378 CAYETANO CAYETANO OBSERVATI 1 [facility] ON INC INC SERVICE PER HOUR BASIC 03861 CAYETANO CAYETANO METABOLIC 1 [facility] PANEL INC INC CALCIUM TOTAL OBSERVATI 57114 FAMILY MULBERRY ON CARE 1 CARE HARRY [place] [address] CAYETANO MONTEIRO LIPASE 1 [facility] INC INC AMB A0427 EMELIA [facility] SERVICE 1 AMBULANCE AMBULANCE ALS SERVICE SERVICE EMERGENCY [place]ORT L[place] 1 [place] [address] CAYETANO MONTEIRO INFUSION 1 [facility] THERAPY INC INC PROPHYLAX IS/DX EA [facility] G0378 CAYETANO MONTEIRO OBSERVATI 1 [facility] [place] [address] CAYETANO MONTEIRO AMYLASE 1 [facility] INC INC BLOOD 88884 CAYETANO AVERYON COUNT 1 [facility] COMPLETE INC INC AUTO&AUTO DIFRNTL WBC URNLS DIP 04960 CAYETANO MONTEIRO 1 [facility] STICK/TAB INC [place] [address] CAYETANO MONTEIRO INFUSION 1 [facility] THERAPY/P INC INC ROPHYLAXI S /DX 1ST TO 1 HR GROUND A0425 [facility] MILEAGE 1 AMBULANCE AMBULANCE PER SERVICE SERVICE STATUTE MILE ALS A0398 [facility] ROUTINE 1 AMBULANCE AMBULANCE DISPOSABL SERVICE SERVICE E SUPPLIES QUANTITAT 84181 CAYETANO MONTEIRO ION DRUG 1 [facility] NOT INC INC ELSEWHERE SPECIFIED INITIAL 40732 FAMILY MULBERRY OBSERVATI 1 CARE HARRY ON ASSOCIATE CARE/DAY S 50 MINUTES COMPREHEN 51744 CAYETANO MONTEIRO SIVE 1 [facility] [address] CAYETANO MONTEIRO STREPTOCO 1 [facility] CCUS INC INC GROUP A COMPREHEN 17762 CAYETANO MONTEIRO SIVE 1 [facility] [place] [address] CAYETANO MONTEIRO INFUSION 1 [facility] THERAPY/P INC INC ROPHYLAXI S /DX 1ST TO [address] [place] [address] CAYETANO MONTEIRO TROPONIN 1 [facility] QUANTITAT INC INC BROOKLYNN CREATINE 35862 CAYETANO MONTEIRO KINASE MB 1 [facility] [place] [address] CAYETANO MONTEIRO AMYLASE 1 [facility] INC INC 3D 10672 CARLOS MEME RENDERING 1 MEDICAL YAZ W/INTERP IMAGING & [place] [address] CAYETANO MONTEIRO INFUSION 1 [facility] THERAPY [place] [address] CARLOS VALENTINE HEAD/BRAI 1 MEDICAL YAZ N W/O IMAGING CONTRAST ASS MATERIAL RADIOLOGI 35370 [facility] C 1 MEDICAL YAZ EXAMINATI IMAGING ON [place] [address] CAYETANO MONTEIRO LIPASE 1 [facility] INC INC CREATINE 03442 CAYETANO MONTEIRO KINASE 1 [facility] TOTAL INC INC BLOOD 91659 CAYETANO MONTEIRO COUNT 1 [facility] COMPLETE INC INC AUTO&AUTO DIFRNTL WBC BLOOD 08228 CAYETANO MONTEIRO COUNT 1 [facility] COMPLETE INC INC AUTO&AUTO DIFRNTL WBC COMPREHEN 33554 CAYETANO MONTEIRO SIVE 1 [facility] METABOLIC INC INC PANEL QUANTITAT 00669 CAYETANO MONTEIRO ION DRUG 1 [facility] NOT INC INC ELSEWHERE SPECIFIED SELF-CARE 13271 SUPPORT SUPPORT /HOME 1 SOURCE SOURCE MGMT TRAINING EACH 15 MINUTES SELF-CARE 53319 SUPPORT SUPPORT /HOME 1 SOURCE SOURCE MGMT TRAINING EACH 15 MINUTES SELF-CARE 64376 SUPPORT SUPPORT /HOME 1 SOURCE SOURCE MGMT TRAINING EACH 15 MINUTES SELF-CARE 57663 SUPPORT SUPPORT /HOME 1 SOURCE SOURCE MGMT TRAINING EACH 15 MINUTES COMPREHEN 64693 CAYETANO MONTEIRO SIVE 1 [facility] METABOLIC INC INC PANEL DRUG 09707 CAYETANO MONTEIRO SCREEN 1 [facility] QUANTITAT INC INC BROOKLYNN PHENYTOIN TOTAL LIPID 78667 CAYETANO AVERYON PANEL 1 [facility] [place] [address] CAYETANO MONTEIRO THYROID 1 [facility] STIMULATI INC INC NG HORMONE TSH BLOOD 81909 CAYETANO AVERYON COUNT 1 [facility] COMPLETE INC INC AUTO&AUTO DIFRNTL WBC SCREENING G0202 [place] [facility] 1 MEDICAL YAZ MAMMOGRAP IMAGING HY KEVIN ASS INCL CAD WHEN PERFORMD COMPUTER- 42419 [place] [facility] AIDED 1 MEDICAL YAZ DETECTION IMAGING ASS SCREENING MAMMOGRAP HY DEBRIDEME 87648 KARRIE YOON NT 1 KERI KERI MASTOIDEC JUANCHO CAVITY SIMPLE BLOOD 50763 CAYETANO MONTEIRO COUNT 1 [facility] COMPLETE INC INC AUTO&AUTO DIFRNTL WBC BASIC 30851 CAYETANO MONTEIRO METABOLIC [address] [facility] PANEL INC INC CALCIUM TOTAL GROUND A0425 [facility] PER SERVICE SERVICE STATUTE MILE AMBULANCE A0429 [facility] SERVICE 1 AMBULANCE AMBULANCE BLS SERVICE SERVICE EMERGENCY TRANSPORT DRUG 87943 CAYETANO AVERYON SCREEN 1 [facility] QUANTITAT INC INC BROOKLYNN PHENYTOIN TOTAL DRUG 12829 CAYETANO AVERYON SCREEN 1 [facility] QUANTITAT INC [place] [address] CAYETANO CAYETANO THYROID 1 [facility] STIMULATI INC INC NG HORMONE TSH SELF-CARE 76345 SUPPORT SUPPORT /HOME 0 SOURCE SOURCE MGMT TRAINING EACH 15 MINUTES SELF-CARE 18181 SUPPORT SUPPORT /HOME 0 SOURCE SOURCE MGMT TRAINING EACH 15 MINUTES SELF-CARE 94163 SUPPORT SUPPORT /HOME 0 SOURCE SOURCE MGMT TRAINING EACH 15 MINUTES SELF-CARE 53243 SUPPORT SUPPORT /HOME 0 SOURCE SOURCE MGMT TRAINING EACH 15 MINUTES SELF-CARE 47418 SUPPORT SUPPORT /HOME 0 SOURCE SOURCE MGMT TRAINING EACH 15 MINUTES DEBRIDEME 20204 KARRIE YOON NT 0 KERI KERI MASTOIDEC JUANCHO CAVITY SIMPLE SELF-CARE 69718 SUPPORT SUPPORT /HOME 0 SOURCE SOURCE MGMT TRAINING EACH 15 MINUTES SELF-CARE 26294 SUPPORT SUPPORT /HOME 0 SOURCE SOURCE MGMT TRAINING EACH 15 MINUTES SELF-CARE 62139 SUPPORT SUPPORT /HOME 0 SOURCE SOURCE MGMT TRAINING EACH 15 MINUTES SELF-CARE 41998 SUPPORT SUPPORT /HOME 0 SOURCE SOURCE MGMT TRAINING EACH 15 MINUTES SELF-CARE 08779 SUPPORT SUPPORT /HOME 0 SOURCE SOURCE MGMT TRAINING EACH 15 MINUTES DRUG 52268 CAYETANO MONTEIRO SCREEN 0 [facility] QUANTITAT INC INC BROOKLYNN PHENYTOIN TOTAL 3D 34660 CAYETANO MONTEIRO RENDERING 0 [facility] W/INTERP INC INC & [place] [address] [place] [facility] HEAD/BRAI 0 MEDICAL YAZ N W/O IMAGING CONTRAST ASS MATERIAL BASIC 06605 CAYETANO MONTEIRO METABOLIC 0 [facility] PANEL INC INC CALCIUM TOTAL BLOOD 94823 CAYETANO MONTEIRO COUNT 0 [facility] COMPLETE INC INC AUTO&AUTO DIFRNTL WBC SELF-CARE 33114 SUPPORT SUPPORT /HOME 0 SOURCE SOURCE MGMT TRAINING EACH 15 MINUTES SELF-CARE 47738 SUPPORT SUPPORT /HOME 0 SOURCE SOURCE MGMT TRAINING EACH 15 MINUTES SELF-CARE 92666 SUPPORT SUPPORT /HOME 0 SOURCE SOURCE MGMT TRAINING EACH 15 MINUTES SELF-CARE 02245 SUPPORT SUPPORT /HOME 0 SOURCE SOURCE MGMT TRAINING EACH 15 MINUTES SELF-CARE 02161 SUPPORT SUPPORT /HOME 0 SOURCE SOURCE MGMT TRAINING EACH 15 MINUTES SELF-CARE 80973 SUPPORT SUPPORT /HOME 0 SOURCE SOURCE MGMT TRAINING EACH 15 MINUTES SELF-CARE 27119 SUPPORT SUPPORT /HOME 0 SOURCE SOURCE MGMT TRAINING EACH 15 MINUTES SELF-CARE 20031 SUPPORT SUPPORT /HOME 0 SOURCE SOURCE MGMT TRAINING EACH 15 MINUTES SELF-CARE 66390 SUPPORT SUPPORT /HOME 0 SOURCE SOURCE MGMT TRAINING EACH 15 MINUTES SELF-CARE 29137 SUPPORT SUPPORT /HOME 0 SOURCE SOURCE MGMT TRAINING EACH 15 MINUTES SELF-CARE 31027 SUPPORT SUPPORT /HOME 0 SOURCE SOURCE MGMT TRAINING EACH 15 MINUTES SELF-CARE 96996 SUPPORT SUPPORT /HOME 0 SOURCE SOURCE MGMT TRAINING EACH 15 MINUTES SELF-CARE 74224 SUPPORT SUPPORT /HOME 0 SOURCE SOURCE MGMT TRAINING EACH 15 MINUTES SELF-CARE 08272 SUPPORT SUPPORT /HOME 0 SOURCE SOURCE MGMT TRAINING EACH 15 MINUTES SELF-CARE 90699 SUPPORT SUPPORT /HOME 0 SOURCE SOURCE MGMT TRAINING EACH 15 MINUTES MICROSURG 66979 KARRIE YOON TQS REQ 0 KERI KERI USE OPERATING MICROSCOP E DEBRIDEME 84842 KARRIE YOON NT 0 KERI KERI MASTOIDEC JUANCHO CAVITY SIMPLE SELF-CARE 50446 SUPPORT SUPPORT /HOME 0 SOURCE SOURCE MGMT TRAINING EACH 15 MINUTES SELF-CARE 22006 SUPPORT SUPPORT /HOME 0 SOURCE SOURCE MGMT TRAINING EACH 15 MINUTES SELF-CARE 18776 SUPPORT SUPPORT /HOME 0 SOURCE SOURCE MGMT TRAINING EACH 15 MINUTES SELF-CARE 64147 SUPPORT SUPPORT /HOME 0 SOURCE SOURCE MGMT TRAINING EACH 15 MINUTES SELF-CARE 62318 SUPPORT SUPPORT /HOME 0 SOURCE SOURCE MGMT TRAINING EACH 15 MINUTES SELF-CARE 44312 SUPPORT SUPPORT /HOME 0 SOURCE SOURCE MGMT TRAINING EACH 15 MINUTES SELF-CARE 05479 SUPPORT SUPPORT /HOME 0 SOURCE SOURCE MGMT TRAINING EACH 15 MINUTES DRUG 28964 [facility] S[facility]EN 0 [facility] QUANTITAT [facility] INC BROOKLYNN PHENYTOIN TOTAL SELF-CARE 84042 SUPPORT SUPPORT /HOME 0 SOURCE SOURCE MGMT TRAINING [place]ACH [place] [address] [facility] THYROID 0 [facility] STIMULATI INC INC NG HORMONE TSH SELF-CARE 57614 SUPPORT SUPPORT /HOME 0 SOURCE SOURCE MGMT TRAINING EACH 15 MINUTES SELF-CARE 72068 SUPPORT SUPPORT /HOME 0 SOURCE SOURCE MGMT TRAINING EACH 15 MINUTES SELF-CARE 74323 SUPPORT SUPPORT /HOME 0 SOURCE SOURCE MGMT TRAINING EACH 15 MINUTES SELF-CARE 10629 SUPPORT SUPPORT /HOME 0 SOURCE SOURCE MGMT TRAINING EACH 15 MINUTES SELF-CARE 95158 SUPPORT SUPPORT /HOME 0 SOURCE SOURCE MGMT TRAINING EACH 15 MINUTES SELF-CARE 42708 SUPPORT SUPPORT /HOME 0 SOURCE SOURCE MGMT TRAINING EACH 15 MINUTES SELF-CARE 61004 SUPPORT SUPPORT /HOME 0 SOURCE SOURCE MGMT TRAINING EACH 15 MINUTES SELF-CARE 04695 SUPPORT SUPPORT /HOME 0 SOURCE SOURCE MGMT TRAINING EACH 15 MINUTES SELF-CARE 98418 SUPPORT SUPPORT /HOME 0 SOURCE SOURCE MGMT TRAINING EACH 15 MINUTES SELF-CARE 97248 SUPPORT SUPPORT /HOME 0 SOURCE SOURCE MGMT TRAINING EACH 15 MINUTES SELF-CARE 17343 SUPPORT SUPPORT /HOME 0 SOURCE SOURCE MGMT TRAINING EACH 15 MINUTES SELF-CARE 72646 SUPPORT SUPPORT /HOME 0 SOURCE SOURCE MGMT TRAINING EACH 15 MINUTES SELF-CARE 58620 SUPPORT SUPPORT /HOME 0 SOURCE SOURCE MGMT TRAINING EACH 15 MINUTES SELF-CARE 53663 SUPPORT SUPPORT /HOME 0 SOURCE SOURCE MGMT TRAINING EACH 15 MINUTES SELF-CARE 28310 SUPPORT SUPPORT /HOME 0 SOURCE SOURCE MGMT TRAINING EACH 15 MINUTES SELF-CARE 49108 SUPPORT SUPPORT /HOME 0 SOURCE SOURCE MGMT TRAINING EACH 15 MINUTES SELF-CARE 73989 SUPPORT SUPPORT /HOME 0 SOURCE SOURCE MGMT TRAINING EACH 15 MINUTES DRUG 43036 [facility] SCREEN 0 [facility] QUANTITAT INC INC [place] PHENYTOIN TOTAL AMBULANCE A0429 [facility] SERVICE 0 AMBULANCE AMBULANCE BLS SERVICE SERVICE EMERGENCY [facility]SPORT [facility] PER SERVICE SERVICE STATUTE MILE SELF-CARE 66340 SUPPORT SUPPORT /HOME 0 SOURCE SOURCE MGMT TRAINING EACH 15 MINUTES SELF-CARE 04614 SUPPORT SUPPORT /HOME 0 SOURCE SOURCE MGMT TRAINING EACH 15 MINUTES SELF-CARE 22039 SUPPORT SUPPORT /HOME 0 SOURCE SOURCE MGMT TRAINING EACH 15 MINUTES SELF-CARE 01115 SUPPORT SUPPORT /HOME 0 SOURCE SOURCE MGMT TRAINING EACH 15 MINUTES SELF-CARE 36078 SUPPORT SUPPORT /HOME 0 SOURCE SOURCE MGMT TRAINING EACH 15 MINUTES SELF-CARE 32007 SUPPORT SUPPORT /HOME 0 SOURCE SOURCE MGMT TRAINING EACH 15 MINUTES SELF-CARE 76426 SUPPORT SUPPORT /HOME 0 SOURCE SOURCE MGMT TRAINING EACH 15 MINUTES SELF-CARE 74239 SUPPORT SUPPORT /HOME 0 SOURCE SOURCE MGMT TRAINING EACH 15 MINUTES SELF-CARE 04405 SUPPORT SUPPORT /HOME 0 SOURCE SOURCE MGMT TRAINING EACH 15 MINUTES SELF-CARE 28818 SUPPORT SUPPORT /HOME 0 SOURCE SOURCE MGMT TRAINING EACH 15 MINUTES SELF-CARE 91018 SUPPORT SUPPORT /HOME 0 SOURCE SOURCE MGMT TRAINING EACH 15 MINUTES SELF-CARE 32877 SUPPORT SUPPORT /HOME 0 SOURCE SOURCE MGMT TRAINING EACH 15 MINUTES SELF-CARE 03798 SUPPORT SUPPORT /HOME 0 SOURCE SOURCE MGMT TRAINING EACH 15 MINUTES SELF-CARE 95605 SUPPORT SUPPORT /HOME 0 SOURCE SOURCE MGMT TRAINING EACH 15 MINUTES SELF-CARE 55926 SUPPORT SUPPORT /HOME 0 SOURCE SOURCE MGMT TRAINING EACH 15 MINUTES SELF-CARE 85895 SUPPORT SUPPORT /HOME 0 SOURCE SOURCE MGMT TRAINING EACH 15 MINUTES SELF-CARE 84514 SUPPORT SUPPORT /HOME 0 SOURCE SOURCE MGMT TRAINING EACH 15 MINUTES SELF-CARE 30246 SUPPORT SUPPORT /HOME 0 SOURCE SOURCE MGMT TRAINING EACH 15 MINUTES SELF-CARE 41382 SUPPORT SUPPORT /HOME 0 SOURCE SOURCE MGMT TRAINING EACH 15 MINUTES SELF-CARE 16057 SUPPORT SUPPORT /HOME 0 SOURCE SOURCE MGMT TRAINING EACH 15 MINUTES SELF-CARE 61480 SUPPORT SUPPORT /HOME 0 SOURCE SOURCE MGMT TRAINING EACH 15 MINUTES SELF-CARE 69549 SUPPORT SUPPORT /HOME 0 SOURCE SOURCE MGMT TRAINING EACH 15 MINUTES SELF-CARE 95349 SUPPORT SUPPORT /HOME 0 SOURCE SOURCE MGMT TRAINING EACH 15 MINUTES SELF-CARE 47981 SUPPORT SUPPORT /HOME 0 SOURCE SOURCE MGMT TRAINING EACH 15 MINUTES SELF-CARE 34873 SUPPORT SUPPORT /HOME 0 SOURCE SOURCE MGMT TRAINING EACH 15 MINUTES SELF-CARE 83258 SUPPORT SUPPORT /HOME 0 SOURCE SOURCE MGMT TRAINING EACH 15 MINUTES SELF-CARE 66090 SUPPORT SUPPORT /HOME 0 SOURCE SOURCE MGMT TRAINING EACH 15 MINUTES SELF-CARE 88787 SUPPORT SUPPORT /HOME 0 SOURCE SOURCE MGMT TRAINING EACH 15 MINUTES SELF-CARE 65344 SUPPORT SUPPORT /HOME 0 SOURCE SOURCE MGMT TRAINING EACH 15 MINUTES SELF-CARE 16015 SUPPORT SUPPORT /HOME 0 SOURCE SOURCE MGMT TRAINING EACH 15 MINUTES SELF-CARE 99028 SUPPORT SUPPORT /HOME 0 SOURCE SOURCE MGMT TRAINING EACH 15 MINUTES SELF-CARE 78339 SUPPORT SUPPORT /HOME 0 SOURCE SOURCE MGMT TRAINING EACH 15 MINUTES SELF-CARE 86164 SUPPORT SUPPORT /HOME 0 SOURCE SOURCE MGMT TRAINING EACH 15 MINUTES SELF-CARE 90055 SUPPORT SUPPORT /HOME 0 SOURCE SOURCE MGMT TRAINING EACH 15 MINUTES SELF-CARE 35179 SUPPORT SUPPORT /HOME 0 SOURCE SOURCE MGMT TRAINING EACH 15 MINUTES SELF-CARE 83395 SUPPORT SUPPORT /HOME 0 SOURCE SOURCE MGMT TRAINING EACH 15 MINUTES SELF-CARE 99991 SUPPORT SUPPORT /HOME 0 SOURCE SOURCE MGMT TRAINING EACH 15 MINUTES SELF-CARE 51082 SUPPORT SUPPORT /HOME 0 SOURCE SOURCE MGMT TRAINING EACH 15 MINUTES SELF-CARE 81173 SUPPORT SUPPORT /HOME 0 SOURCE SOURCE MGMT TRAINING EACH 15 MINUTES DRUG 29309 [facility]EN [facility] QUANTITAT INC INC [place] PHENYTOIN TOTAL COMPREHEN 39983 CA[facility]IR[facility] SIVE 0 [facility] [address] CAYETANO MONTEIR[facility] THYROID 0 [facility] STIMULATI INC INC NG HORMONE TSH BLOOD 53283 CAYETANO MONTEIRO COUNT 0 [facility] COMPLETE INC INC AUTO&AUTO DIFRNTL WBC SELF-CARE 66440 SUPPORT SUPPORT /HOME 0 SOURCE SOURCE MGMT TRAINING EACH 15 MINUTES SELF-CARE 86347 SUPPORT SUPPORT /HOME 0 SOURCE SOURCE MGMT TRAINING EACH 15 MINUTES SELF-CARE 93760 SUPPORT SUPPORT /HOME 0 SOURCE SOURCE MGMT TRAINING EACH 15 MINUTES DEBRIDEME 49201 KARRIE YOON, NT 0 KRISTI G KRISTI G MASTOIDEC JUANCHO CAVITY SIMPLE SELF-CARE 37261 SUPPORT SUPPORT /HOME 0 SOURCE SOURCE MGMT TRAINING EACH 15 MINUTES SELF-CARE 72056 SUPPORT SUPPORT /HOME 0 SOURCE SOURCE MGMT TRAINING EACH 15 MINUTES SELF-CARE 98117 SUPPORT SUPPORT /HOME 0 SOURCE SOURCE MGMT TRAINING EACH 15 MINUTES SELF-CARE 96062 SUPPORT SUPPORT /HOME 0 SOURCE SOURCE MGMT TRAINING EACH 15 MINUTES SELF-CARE 08379 SUPPORT SUPPORT /HOME 0 SOURCE SOURCE MGMT TRAINING EACH 15 MINUTES SELF-CARE 05627 SUPPORT SUPPORT /HOME 0 SOURCE SOURCE MGMT TRAINING EACH 15 MINUTES SELF-CARE 72912 SUPPORT SUPPORT /HOME 0 SOURCE SOURCE MGMT TRAINING EACH 15 MINUTES SELF-CARE 38907 SUPPORT SUPPORT /HOME 0 SOURCE SOURCE MGMT TRAINING EACH 15 MINUTES SELF-CARE 41979 SUPPORT SUPPORT /HOME 0 SOURCE SOURCE MGMT TRAINING EACH 15 MINUTES SELF-CARE 82188 SUPPORT SUPPORT /HOME 0 SOURCE SOURCE MGMT TRAINING EACH 15 MINUTES SELF-CARE 94488 SUPPORT SUPPORT /HOME 0 SOURCE SOURCE MGMT TRAINING EACH 15 MINUTES SELF-CARE 37238 SUPPORT SUPPORT /HOME 0 SOURCE SOURCE MGMT TRAINING EACH 15 MINUTES SELF-CARE 17822 SUPPORT SUPPORT /HOME 0 SOURCE SOURCE MGMT TRAINING EACH 15 MINUTES SELF-CARE 19938 SUPPORT SUPPORT /HOME 0 SOURCE SOURCE MGMT TRAINING EACH 15 MINUTES SELF-CARE 14565 SUPPORT SUPPORT /HOME 0 SOURCE SOURCE MGMT TRAINING EACH 15 MINUTES SELF-CARE 73091 SUPPORT SUPPORT /HOME 0 SOURCE SOURCE MGMT TRAINING EACH 15 MINUTES SELF-CARE 75559 SUPPORT SUPPORT /HOME 0 SOURCE SOURCE MGMT TRAINING EACH 15 MINUTES SELF-CARE 82738 SUPPORT SUPPORT /HOME 0 SOURCE SOURCE MGMT TRAINING EACH 15 MINUTES SELF-CARE 53403 SUPPORT SUPPORT /HOME 0 SOURCE SOURCE MGMT TRAINING EACH 15 MINUTES SELF-CARE 34140 SUPPORT SUPPORT /HOME 0 SOURCE SOURCE MGMT TRAINING EACH 15 MINUTES SELF-CARE 71213 SUPPORT SUPPORT /HOME 0 SOURCE SOURCE MGMT TRAINING EACH 15 MINUTES [facility] 64609 GERMAIN HOWARD, MEDICAL 0 VISION [place] A XM&EVAL COMPRHNSV ESTAB PT 1/> SELF-CARE 49078 SUPPORT SUPPORT /HOME 0 SOURCE SOURCE MGMT TRAINING EACH 15 MINUTES SELF-CARE 65952 SUPPORT SUPPORT /HOME 0 SOURCE SOURCE MGMT TRAINING EACH 15 MINUTES SELF-CARE 16544 SUPPORT SUPPORT /HOME 0 SOURCE SOURCE MGMT TRAINING EACH 15 MINUTES SELF-CARE 73032 SUPPORT SUPPORT /HOME 0 SOURCE SOURCE MGMT TRAINING EACH 15 MINUTES SELF-CARE 68439 SUPPORT SUPPORT /HOME 0 SOURCE SOURCE MGMT TRAINING EACH 15 MINUTES SELF-CARE 77873 SUPPORT SUPPORT /HOME 0 SOURCE SOURCE MGMT TRAINING EACH 15 MINUTES SELF-CARE 51812 SUPPORT SUPPORT /HOME 0 SOURCE SOURCE MGMT TRAINING EACH 15 MINUTES SELF-CARE 27638 SUPPORT SUPPORT /HOME 0 SOURCE SOURCE MGMT TRAINING EACH 15 MINUTES SELF-CARE 64223 SUPPORT SUPPORT /HOME 0 SOURCE SOURCE MGMT TRAINING EACH 15 MINUTES SELF-CARE 66675 SUPPORT SUPPORT /HOME 0 SOURCE SOURCE MGMT TRAINING EACH 15 MINUTES SELF-CARE 53360 SUPPORT SUPPORT /HOME 0 SOURCE SOURCE MGMT TRAINING EACH 15 MINUTES SELF-CARE 12666 SUPPORT SUPPORT /HOME 0 SOURCE SOURCE MGMT TRAINING EACH 15 MINUTES COMPRE 56159 KARRIE YOON, AUDIOMETR 0 KRISTI Akhtar Y THRESHOLD EVAL SP RECOGNIJ TYMPANOME 47398 KARRIE YOON, TRY 0 KRISTI G KRISTI Akhtar SELF-CARE 47805 SUPPORT SUPPORT /HOME 0 SOURCE SOURCE MGMT TRAINING EACH 15 MINUTES SELF-CARE 93449 SUPPORT SUPPORT /HOME 0 SOURCE SOURCE MGMT TRAINING EACH 15 MINUTES SELF-CARE 51070 SUPPORT SUPPORT /HOME 0 SOURCE SOURCE MGMT TRAINING EACH 15 MINUTES SELF-CARE 20810 SUPPORT SUPPORT /HOME 0 SOURCE SOURCE MGMT TRAINING EACH 15 MINUTES SELF-CARE 69800 SUPPORT SUPPORT /HOME 0 SOURCE SOURCE MGMT TRAINING EACH 15 MINUTES SELF-CARE 66002 SUPPORT SUPPORT /HOME 0 SOURCE SOURCE MGMT TRAINING EACH 15 MINUTES SELF-CARE 52953 SUPPORT SUPPORT /HOME 0 SOURCE SOURCE MGMT TRAINING EACH [address] [place] [address] CAYETANO MONTEIRO FREE 0 [facility] [place] [address] CAYETANO MONTEIRO THYROID 0 [facility] STIMULATI INC INC NG HORMONE TSH BLOOD 11234 CAYETANO MONTEIRO COUNT 0 [facility] COMPLETE INC INC AUTO&AUTO DIFRNTL WBC SELF-CARE 75598 SUPPORT SUPPORT /HOME 0 SOURCE SOURCE MGMT TRAINING EACH 15 MINUTES SELF-CARE 18394 SUPPORT SUPPORT /HOME 0 SOURCE SOURCE MGMT TRAINING EACH 15 MINUTES SELF-CARE 37914 SUPPORT SUPPORT /HOME 0 SOURCE SOURCE MGMT TRAINING EACH 15 MINUTES SELF-CARE 10217 SUPPORT SUPPORT /HOME 0 SOURCE SOURCE MGMT TRAINING EACH 15 MINUTES SELF-CARE 53216 SUPPORT SUPPORT /HOME 0 SOURCE SOURCE MGMT TRAINING EACH 15 MINUTES SELF-CARE 46478 SUPPORT SUPPORT /HOME 0 SOURCE SOURCE MGMT TRAINING EACH 15 MINUTES SELF-CARE 59633 SUPPORT SUPPORT /HOME 0 SOURCE SOURCE MGMT TRAINING EACH 15 MINUTES SELF-CARE 06732 SUPPORT SUPPORT /HOME 0 SOURCE SOURCE MGMT TRAINING EACH 15 MINUTES SELF-CARE 39968 SUPPORT SUPPORT /HOME 0 SOURCE SOURCE MGMT TRAINING EACH [address] ORBIT [address]0552 [place], SELLA/POS 0 MEDICAL STEPHANI T IMAGING FOSSA/EAR ASSOCIATE W/[place] [address] [place], MAXILLOFA 0 MEDICAL STEPHANI CIAL W/O IMAGING CONTRAST ASSOCIATE MATERIAL S 3D 53891 [place] [facility], RENDERING 0 MEDICAL STEPHANI IMAGING W/INTERP& ASSOCIATE POSTPROC S DIFF WORK STATION SELF-CARE 71061 SUPPORT SUPPORT /HOME 0 SOURCE SOURCE MGMT TRAINING EACH 15 MINUTES SELF-CARE 41781 SUPPORT SUPPORT /HOME 0 SOURCE SOURCE MGMT TRAINING EACH 15 MINUTES SELF-CARE 11768 SUPPORT SUPPORT /HOME 0 SOURCE SOURCE MGMT TRAINING EACH 15 MINUTES SELF-CARE 61415 SUPPORT SUPPORT /HOME 0 SOURCE SOURCE MGMT TRAINING EACH 15 MINUTES SELF-CARE 59691 SUPPORT SUPPORT /HOME 0 SOURCE SOURCE MGMT TRAINING EACH 15 MINUTES SELF-CARE 35622 SUPPORT SUPPORT /HOME 0 SOURCE SOURCE MGMT TRAINING EACH 15 MINUTES SELF-CARE 26227 SUPPORT SUPPORT /HOME 0 SOURCE SOURCE MGMT TRAINING EACH 15 MINUTES SELF-CARE 73065 SUPPORT SUPPORT /HOME 0 SOURCE SOURCE MGMT TRAINING EACH 15 MINUTES SELF-CARE 58641 SUPPORT SUPPORT /HOME 0 SOURCE SOURCE MGMT TRAINING EACH 15 MINUTES SELF-CARE 58006 SUPPORT SUPPORT /HOME 0 SOURCE SOURCE MGMT TRAINING EACH 15 MINUTES SELF-CARE 43817 SUPPORT SUPPORT /HOME 0 SOURCE SOURCE MGMT TRAINING EACH 15 MINUTES SELF-CARE 39658 SUPPORT SUPPORT /HOME 0 SOURCE SOURCE MGMT TRAINING EACH 15 MINUTES SELF-CARE 07556 SUPPORT SUPPORT /HOME 0 SOURCE SOURCE MGMT TRAINING EACH 15 MINUTES SELF-CARE 87728 SUPPORT SUPPORT /HOME 0 SOURCE SOURCE MGMT TRAINING EACH 15 MINUTES COMPUTER- 14723 [place] [facility], AIDED 0 MEDICAL STE[facility] DETECTION IMAGING ASSOCIATE SCREENING S MAMMOGRAP HY SCREENING 86249 [place] [facility], 0 MEDICAL STEPH[facility] MAMMOGRAP IMAGING HY ASSOCIATE BILATERAL S CYTP 84733 [facility] [place] [facility] [place] [facility] [place] INC CERV/VAG MNL SCRN PHYSICIAN SUPV SELF-CARE 04588 SUPPORT SUPPORT /HOME 0 SOURCE SOURCE MGMT TRAINING EACH 15 MINUTES BLOOD 35318 HANKS, HANKS, OCCULT 0 DON R DON R PEROXIDAS E ACTV QUAL FECES 1 DETER SELF-CARE 12675 SUPPORT SUPPORT /HOME 0 SOURCE SOURCE MGMT TRAINING EACH 15 MINUTES SELF-CARE 75935 SUPPORT SUPPORT /HOME 0 SOURCE SOURCE MGMT TRAINING EACH 15 MINUTES SELF-CARE 46956 SUPPORT SUPPORT /HOME 0 SOURCE SOURCE MGMT TRAINING EACH 15 MINUTES SELF-CARE 80361 SUPPORT SUPPORT /HOME 0 SOURCE SOURCE MGMT TRAINING EACH 15 MINUTES SELF-CARE 86102 SUPPORT SUPPORT /HOME 0 SOURCE SOURCE MGMT TRAINING EACH 15 MINUTES SELF-CARE 97292 SUPPORT SUPPORT /HOME 0 SOURCE SOURCE MGMT TRAINING EACH 15 MINUTES SELF-CARE 64609 SUPPORT SUPPORT /HOME 0 SOURCE SOURCE MGMT TRAINING EACH 15 MINUTES SELF-CARE 03395 SUPPORT SUPPORT /HOME 0 SOURCE SOURCE MGMT TRAINING EACH 15 MINUTES SELF-CARE 87454 SUPPORT SUPPORT /HOME 0 SOURCE SOURCE MGMT TRAINING EACH 15 MINUTES SELF-CARE 23152 SUPPORT SUPPORT /HOME 0 SOURCE SOURCE MGMT TRAINING EACH 15 MINUTES SELF-CARE 39210 SUPPORT SUPPORT /HOME 0 SOURCE SOURCE MGMT TRAINING EACH 15 MINUTES SELF-CARE 34153 SUPPORT SUPPORT /HOME 0 SOURCE SOURCE MGMT TRAINING EACH 15 MINUTES SELF-CARE 11296 SUPPORT SUPPORT /HOME 0 SOURCE SOURCE MGMT TRAINING EACH 15 MINUTES SELF-CARE 04907 SUPPORT SUPPORT /HOME 0 SOURCE SOURCE MGMT TRAINING EACH 15 MINUTES SELF-CARE 75157 SUPPORT SUPPORT /HOME 0 SOURCE SOURCE MGMT TRAINING EACH 15 MINUTES SELF-CARE 99987 SUPPORT SUPPORT /HOME 0 SOURCE SOURCE MGMT TRAINING EACH 15 MINUTES SELF-CARE 64767 SUPPORT SUPPORT /HOME 0 SOURCE SOURCE MGMT TRAINING EACH 15 MINUTES CONTINUOU E0601 DEBORAH CABRERA S 0 HOME MED HOME MED POSITIVE EQUIP. EQUIP. [facility] PRESSURE DEVICE SELF-CARE 49945 SUPPORT SUPPORT /HOME 0 SOURCE SOURCE MGMT TRAINING EACH 15 MINUTES SELF-CARE 78928 SUPPORT SUPPORT /HOME 0 SOURCE SOURCE MGMT TRAINING EACH [address] [place] [address] CAYETANO MONTEIRO THYROID 0 [facility] STIMULATI INC INC NG HORMONE TSH DRUG 20647 CAYET[facility] SCREEN [facility] QUANTITAT INC INC BR[place]NN PHENYTOIN TOTAL DRUG 80215 CAYETANO MONTEIRO SCREEN 0 [facility] QUANTITAT INC INC [place]NN PHENYTOIN TOTAL SUSCEPTIB 22234 CAYETANO MONTEIRO LTY STDY 0 [facility] ANTIMICRB INC INC IAL MICRO/AGA R DILUTJ URNLS DIP 91610 CAYETANO MONTEIRO 0 [facility] STICK/TAB INC INC LET REAGENT AUTO MICROSCOP Y BLOOD 58137 CAYETANO MONTEIRO COUNT 0 [facility] COMPLETE INC INC AUTO&AUTO DIFRNTL WBC GROUND A0425 EMELIA K[facility]OOR MILEAGE 0 AMBULANCE AMBULANCE PER SERVICE SERVICE STATUTE MILE CULTURE 84036 CAYETANO MONTEIRO BACTERIAL 0 [facility] INC INC QUANTTATI VE COLONY COUNT URINE CULTURE 98502 CAYETANO MONTEIRO BCT 0 [facility] ISOL&PRSM INC INC PTV ID ISOLATE EA URINE AMB A0427 EMELIA [facility] SERVICE 0 AMBULANCE AMBULANCE ALS SERVICE SERVICE EMERGENCY TRANSPORT LEVEL 1 AMB A0422 EMELIA [facility] OXYGEN&O2 0 AMBULANCE AMBULANCE SUPPLIES SERVICE SERVICE LIFE SUSTAININ G SITUATION BASIC 92204 CAYETANO MONTEIRO METABOLIC 0 [facility] PANEL INC INC CALCIUM TOTAL MANUAL 01325 CAYETANO MONTEIRO THERAPY 0 [facility] TQS 1/> INC INC REGIONS EACH 15 MINUTES THERAPEUT 40009 CAYETANO MONTEIRO IC PX 1/> 0 [facility] AREAS INC INC EACH 15 MIN EXERCISES THERAPEUT 72614 CAYETANO MONTEIRO IC PX 1/> 0 [facility] AREAS INC INC EACH 15 MIN EXERCISES MANUAL 69784 CAYETANO MONTEIRO THERAPY 0 [facility] TQS 1/> INC INC REGIONS EACH 15 MINUTES APPLICATI 88792 CAYETANO MONTEIRO ON 0 [facility] MODALITY INC INC 1/> AREAS HOT/COLD PACKS APPLICATI 08580 CAYETANO MONTEIRO ON 0 [facility] MODALITY INC INC 1/> AREAS HOT/COLD PACKS MANUAL 95615 CAYETANO MONTEIRO THERAPY 0 [facility] TQS 1/> INC INC REGIONS EACH 15 MINUTES THERAPEUT 33972 CAYETANO MONTEIRO IC PX 1/> 0 [facility] AREAS INC INC EACH 15 MIN EXERCISES THERAPEUT 26272 CAYETANO MONTEIRO IC PX 1/> 0 [facility] AREAS INC INC EACH 15 MIN EXERCISES MANUAL 89499 CAYETANO MONTEIRO THERAPY 0 [facility] TQS 1/> INC INC REGIONS EACH 15 MINUTES APPLICATI 99963 CAYETANO MONTEIRO ON 0 [facility] MODALITY INC INC 1/> AREAS HOT/COLD PACKS APPLICATI 56174 CAYETANO MONTEIRO ON 0 [facility] MODALITY INC INC 1/> AREAS HOT/COLD PACKS MANUAL 39035 CAYETANO MONTEIRO THERAPY 0 [facility] TQS 1/> INC INC REGIONS EACH 15 MINUTES THERAPEUT 26906 CAYETANO MONTEIRO IC PX 1/> 0 [facility] AREAS INC INC EACH 15 MIN EXERCISES TUBING A7037 DEBORAH CABRERA USED WITH 0 HOME MED HOME MED POSITIVE EQUIP. EQUIP. [facility] PRESSURE DEVICE CONTINUOU E0601 DEBORAH DEBORAH S 0 HOME MED HOME MED POSITIVE EQUIP. EQUIP. [facility] PRESSURE DEVICE FILTER A7038 DEBORAH DEBORAH DISPBL 0 HOME MED HOME MED USED EQUIP. EQUIP. W/POS [employer] [facility]AY PRESSURE DEVICE FILTER A7039 DEBORAH CHEUNGRELL NON 0 HOME MED HOME MED DISPBL EQUIP. EQUIP. USED [facility] W/POS [facility] PRESS DEVICE NASL A7034 DEBORAH CABRERA INTRFCE 0 HOME MED HOME MED POS ARWAY EQUIP. EQUIP. 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 EQUIP. E [facility] PRESSURE DEVICE APPLICATI 52456 CAYETANO MONTEIRO ON 0 [facility] MODALITY INC INC 1/> AREAS HOT/COLD PACKS MANUAL 73253 CAYETANO MONTEIRO THERAPY 0 [facility] TQS 1/> INC INC REGIONS EACH 15 MINUTES THERAPEUT 35100 CAYETANO MONTEIRO IC PX 1/> 0 [facility] AREAS INC INC EACH 15 MIN EXERCISES THERAPEUT 44716 CAYETANO MONTEIRO IC PX 1/> 0 [facility] AREAS INC INC EACH 15 MIN EXERCISES MEDICAL 36780 CAYETANO AVERYON NUTRITION 0 [facility] CENTER ASSMT&IVN TJ INDIV EACH 15 FL RADEX 05224 CARLOS CEJA, WRIST 2 0 MEDICAL ZHAO [facility] IMAGING ASSOCIATE S APPL 17723 CAYETANO MONTEIRO MODALITY 0 [facility] 1/> AREAS INC INC ELEC STIMJ UNATTENDE D APPLICATI 96174 CAYETANO MONTEIRO ON 0 [facility] MODALITY INC INC 1/> AREAS HOT/COLD PACKS MANUAL 47827 CAYETANO MONTEIRO THERAPY 0 [facility] TQS 1/> INC INC REGIONS EACH 15 MINUTES APPLICATI 92223 CAYETANO MONTEIRO ON 0 [facility] MODALITY INC INC 1/> AREAS HOT/COLD PACKS MANUAL 49384 CAYETANO MONTEIRO THERAPY 0 [facility] TQS 1/> INC INC REGIONS EACH 15 MINUTES THERAPEUT 97253 CAYETANO MONTEIRO IC PX 1/> 0 [facility] AREAS INC INC EACH 15 MIN EXERCISES THERAPEUT 36734 CAYETANO MONTEIRO IC PX 1/> 0 [facility] AREAS INC INC EACH 15 MIN EXERCISES APPL 19815 CAYETANO MONTEIRO MODALITY 0 [facility] 1/> AREAS INC INC PARAFFIN BATH APPLICATI 72523 CAYETANO MONTEIRO ON 0 [facility] MODALITY INC INC 1/> AREAS HOT/COLD PACKS MANUAL 98291 CAYETANO MONTEIRO THERAPY 0 [facility] TQS 1/> INC INC REGIONS EACH 15 MINUTES PHYSICAL 04688 CAYETANO AVERYON THERAPY 0 [facility] RE-EVALUA INC INC TION MANUAL 00898 CAYETANO MONTEIRO THERAPY 0 [facility] TQS 1/> INC INC REGIONS EACH 15 MINUTES APPL 50820 CAYETANO MONTEIRO MODALITY 0 [facility] 1/> AREAS INC INC PARAFFIN BATH THERAPEUT 17087 CAYETANO MONTEIRO IC PX 1/> 0 [facility] AREAS INC INC EACH 15 MIN EXERCISES APPL 70539 CAYETANO MONTEIRO MODALITY 9 [facility] 1/> AREAS INC INC PARAFFIN BATH THERAPEUT 81883 CAYETANO AVERYON IC PX 1/> 9 [facility] AREAS INC INC EACH 15 MIN EXERCISES APPL 28430 CAYETANO MONTEIRO MODALITY 9 [facility] 1/> AREAS INC INC ELEC STIMJ UNATTENDE D MANUAL 11255 CAYETANO MONTEIRO THERAPY 9 [facility] TQS 1/> INC INC REGIONS EACH 15 MINUTES APPLICATI 54677 CAYETANO MONTEIRO ON 9 [facility] MODALITY INC INC 1/> AREAS HOT/COLD PACKS APPLICATI 47479 CAYETANO MONTEIRO ON 9 [facility] MODALITY INC INC 1/> AREAS HOT/COLD PACKS MANUAL 17583 CAYETANO MONTEIRO THERAPY 9 [facility] TQS 1/> INC INC REGIONS EACH 15 MINUTES APPL 41463 CAYETANO MONTEIRO MODALITY 9 [facility] 1/> AREAS INC INC ELEC STIMJ UNATTENDE D THERAPEUT 37469 CAYETANO CAYETANO IC PX 1/> 9 [facility] AREAS INC INC EACH 15 MIN EXERCISES POLYSOM 96136 CAYETANO MONTEIRO 6/>YRS 9 [facility] SLEEP 4/> INC INC ADDL SHAUN ATTND THERAPEUT 32567 CAYETANO MONTEIRO IC PX 1/> 9 [facility] AREAS INC INC EACH 15 MIN EXERCISES APPL 31673 CAYETANO MONTEIRO MODALITY 9 [facility] 1/> AREAS INC INC ELEC STIMJ UNATTENDE D MANUAL 28470 CAYETANO MONTEIRO THERAPY 9 [facility] TQS 1/> INC INC REGIONS EACH 15 MINUTES APPLICATI 56016 CAYETANO MONTEIRO ON 9 [facility] MODALITY INC INC 1/> AREAS HOT/COLD PACKS APPL 19030 CAYETANO MONTEIRO MODALITY 9 [facility] 1/> AREAS INC INC VASOPNEUM ATIC DEVICES APPL 38800 CAYETANO MONTEIRO MODALITY 9 [facility] 1/> AREAS INC INC ELEC STIMJ UNATTENDE D THERAPEUT 21705 CAYETANO MONTEIRO IC PX /> 9 [facility] AREAS INC INC EACH 15 MIN EXERCISES PHYSICAL 56986 CAYETANO MONTEIRO THERAPY 9 [facility] EVALUATIO INC INC N BINOCULAR 90754 KARRIE YOON, 9 KRISTI Akhtar MICROSCOP Y SEPARATE DX PROCEDURE DEBRIDEME 37670 KARRIE YOON, NT 9 KRISTI Akhtar MASTOIDEC JUANCHO CAVITY SIMPLE WRIST L3908 TRACY TRACY HAND 9 OYAV CASON MD ORTHOSIS PSC PSC EXT CONTROL COCK-UP PREFAB RADEX 55048 CAYETANO MONTEIRO WRIST 2 9 [facility] VIEWS INC INC BLOOD 67660 COMBINED COMBINED COUNT 9 PHYSICIAN PHYSICIAN COMPLETE S LAB S LAB AUTO&AUTO DIFRNTL WBC LIPID 22595 COMBINED COMBINED PANEL 9 PHYSICIAN PHYSICIAN S LAB S LAB COMPREHEN 74219 COMBINED COMBINED SIVE 9 PHYSICIAN PHYSICIAN METABOLIC S LAB S LAB PANEL DRUG 90790 COMBINED COMBINED SCREEN 9 PHYSICIAN PHYSICIAN QUANTITAT S LAB S LAB BROOKLYNN PHENYTOIN TOTAL LIPID 87184 COMBINED COMBINED PANEL 9 PHYSICIAN [place] [address] COMBINED COMBINED THYROID 9 PHYSICIAN PHYSICIAN STIMULATI S LAB S LAB NG HORMONE TSH RADEX 78384 CAYETANO MONTEIRO WRIST 2 9 [facility] VIEWS INC INC RADEX 39662 HANKS, HANKS, ANKLE 9 DON R DON R COMPLETE MINIMUM 3 VIEWS RADEX 27810 [place], WRIST 2 9 MEDICAL ZHAO P VIEWS IMAGING ASSOCIATE S APPLICATI 00890 BOWEN WISEMAN, ON CAST 9 TRACY TRACY ELBOW FINGER SHORT ARM RADEX 49973 [place] BRENNA, WRIST 2 9 MEDICAL ZHAO P VIEWS IMAGING ASSOCIATE S RADEX 94076 CAYETANO MONTEIRO WRIST 2 9 [facility] VIEWS INC INC ANES 13912 [facility] RADIUS 9 ANESTH MELLISA L ULNA OF THE WRIST/MCLEAN BLUEGRASS D BONES CLOSED PX BLOOD 61237 CAYETANO MONTEIRO COUNT 9 [facility] COMPLETE INC INC AUTO&[place] [address] CAYEATNO MONTEIRO INFUSION 9 [facility] THERAPY/P INC INC ROPHYLAXI S /DX 1ST TO 1 [place] [address] CAYETANO MONTEIRO INFUSION 9 [facility] THERAPY INC INC PROPHYLAX IS/DX EA HOUR CLOS RDUC 7902 CAYETANO MONTEIRO FRACTURE 9 [facility] INC INC RADIUS&UL NA WITHOUT INTRL FIX CLTX DSTL 72568 BOWEN WISEMAN, RDL 9 TRACY TRACY FX/EPIPHY SL SEP W/MANJ WHEN PERF RADEX 16279 [facility], HAND 9 MEDICAL STEPHANI MINIMUM 3 IM[place] [address] COMBINED COMBINED THYROID 9 PHYSICIAN PHYSICIAN STIMULATI S LAB S LAB NG HORMONE TSH DRUG 88858 COMBINED COMBINED SCREEN 9 PHYSICIAN PHYSICIAN QUANTITAT S LAB S LAB BROOK[place]NN PHENYTOIN TOTAL DRUG 50563 CAYETANO MONTEIRO SCREEN 9 [facility] QUANTITAT INC INC [place] PHENYTOIN TOTAL COMPREHEN 07111 CAYETANO MONTEIRO SIVE 9 [facility] [place] [address] CAYETANO MONTEIRO THYROID 9 [facility] STIMULATI INC INC NG HORMONE TSH AMBULANCE A0429 [facility] SERVICE 9 AMBULANCE AMBULANCE BLS SERVICE SERVICE EMERGENC[facility]SP[facility]25 [facility] PER SERVICE SERVICE STATUTE MILE BLOOD 60880 CAYETANO MONTEIRO COUNT [address] [facility] HOSP COMPLETE INC INC AUTO&AUTO DIFRNTL WBC RHYTHM 34895 CAYETANO MONTEIRO ECG 1-[address] [facility] HOSP LEADS INC INC TRACING ONLY W/O I&R ECG 93689 CAYETANO ZUNIGA ROUTINE 9 [facility] W/LEAST PROF SERV 12 LDS I&R ONLY 3D 89722 [facility] BRENNA, RENDERING 9 MEDICAL [facility] P W/INTERP IMAGING & ASSOCIATE POSTPROCE [place] ECG [address]662 CAYETANO MONTEIRO ROUTINE [address] [facility] H[facility] ECG INC INC W/LEAST 12 LDS TRCG ONLY W/O I&[place] [address] CAYETANO MONTEIRO HEAD/BRAI [address] [facility] N W/O INC INC CONTRAST MATERIAL OPHTH 90075 [facility] 9 [facility] M XM&EVAL COMPRHNSV ESTAB PT 1/> [place] [address] COMBINED COMBINED THYROID 9 PHYSICIAN PHYSICIAN STIMULATI S LAB S LAB NG HORMONE TSH DRUG 09517 COMBINED COMBINED SCREEN 9 PHYSICIAN PHYSICIAN QUANTITAT S LAB S LAB BROOKLYNN PHENYTOIN TOTAL LIPID 95052 COMBINED COMBINED PANEL 9 PHYSICIAN PHYSICIAN S LAB S LAB GLUCOSE 68698 COMBINED COMBINED TOLERANCE 9 PHYSICIAN PHYSICIAN TEST GTT S LAB S LAB 3 SPECIMENS DRUG 61366 COMBINED COMBINED SCREEN 9 PHYSICIAN PHYSICIAN QUANTITAT S LAB S [place] [address] COMBINED COMBINED THYROID 9 PHYSICIAN PHYSICIAN STIMULATI S LAB S LAB NG HORMONE TSH MICROSURG 15618 KARRIE YOON, TQS REQ 8 KRISTI Akhtar [place] [address] COMBINED COMBINED THYROID 8 PHYSICIAN PHYSICIAN STIMULATI S LAB S LAB NG HORMONE TSH DRUG 60997 COMBINED COMBINED SCREEN 8 PHYSICIAN PHYSICIAN QUANTITAT S LAB S LAB BROOKLYNN PHENYTOIN TOTAL DEBRIDEME 11589 KARRIE YOON, NT 8 KRISTI Akhtar MASTOIDEC JUANCHO CAVITY SIMPLE DEBRIDEME 52539 KARRIE YOON, NT 8 KRISTI Akhtar MASTOIDEC JUANCHO CAVITY SIMPLE MICROSURG 01969 KARRIE YOON, TQS REQ 8 KRISTI Akhtar USE OPERATING MICROSCOP E DRUG 02369 COMBINED COMBINED SCREEN 8 PHYSICIAN PHYSICIAN QUANTITAT S LAB S LAB BROOKLYNN PHENYTOIN TOTAL GENERAL 97733 COMBINED COMBINED HEALTH 8 PHYSICIAN PHYSICIAN PANEL S LAB S LAB SCREENING 79809 [place] Anabel [facility] MAMMOGRAP IMAGING HY ASSOCIATE BILATERAL S COMPUTER- 48279 [place] MEM[facility] AIDED 8 MEDICAL STEPHANI DETECTION IMAGING ASSOCIATE SCREENING S MAMMOGRAP HY DUP-SCAN 86540 [place] MEM[facility] XTR VEINS 8 MEDICAL STEPHANI IMAGING UNILATERA ASSOCIATE L/LIMITED S STUDY DUPLEX 96053 [place] VIRGILIO CEJA 8 MEDICAL ZHAO P EXTRACRAN IMAGING IAL [place] [address] CAYETANO MONTEIRO THYROID 8 [facility] STIMULATI INC INC NG HORMONE TSH BLOOD 43277 CAYETANO MONTEIRO COUNT 8 [facility] COMPLETE INC INC AUTO&AUTO DIFRNTL WBC COMPREHEN 03494 CAYETANO MONTEIRO SIVE 8 [facility] METABOLIC INC INC PANEL DRUG 52991 CAYETANO MONTEIRO SCREEN 8 [facility] QUANTITAT INC INC BROOKLYNN PHENYTOIN TOTAL LIPID 39885 CAYETANO MONTEIRO PANEL 8 [facility] INC INC RADIOLOGI 23791 LATONYA HANKS C EXAM 8 DON R DON R PELVIS COMPL MINIMUM 3 VIEWS RADIOLOGI 30103 LATONYA HANKS C EXAM 8 DON R DON R PELVIS COMPL MINIMUM 3 VIEWS COMMODE [id number] DEBORAH CABRERA CHAIR 8 HOME MED HOME MED MOBILE OR EQUIP. EQUIP. [employer] & Technology Authority [facility] STATIONAR Y W/FIXED ARMS DRUG 07552 [facility] 8 MED LAB MED LAB QUANTITAT [place] PHENYTOIN TOTAL SBSQ 23536 LATONYA HANKS, NURSING 8 DON R DON R FACILITY CARE/DAY E/M STABLE 10 MIN DRUG 54794 [facility] SCREEN 8 MED LAB MED LAB QUANTITAT [place] PHENYTOIN TOTAL OCCUPATIO 16139 AMY REYES NAL 8 [facility] [place] [address] AMY REYES 1/> AREAS 8 [facility] EA 15 E E MIN GAIT TRAINJ W/STAIR THERAPEUT 22197 AMY REYES ACTVITY 8 [facility] DIRECT PT E E CONTACT EACH 15 MIN SELF-CARE 67892 AMY REYES /HOME 8 [facility] MGMT E E TRAINING EACH 15 MINUTES HOSPITAL 90213 LATONYA HANKS, DISCHARGE 8 DON R DON R DAY MANAGEMEN T 30 MIN/< [place] [address] AMY DIAZT 1/> AREAS 8 [facility]ALTHCAR HEALTHCAR EACH 15 E E MIN NEUROMUSC REEDUCA GROUND A0425 [facility] AM[facility]UL[facility] PER SERVICE SERVICE STATUTE MILE PHYSICAL 56100 AMY DIAZT THERAPY 8 HEALTHCAR HEALTHCAR EVALUATIO E E N THERAPEUT 05304 [facility] IC PX 1/> 8 HEALTHCAR HEALTHCAR AREAS E E EACH 15 MIN EXERCISES SBSQ 13434 [facility] 8 DON R DON R CARE/DAY 25 MINUTES SBSQ 68077 [facility] 8 DON R DON R CARE/DAY 25 MINUTES SBSQ 47387 [facility] 8 DON R DON R CARE/DAY 25 MINUTES RADEX HIP 67706 [place], MEDICAL ZHAO P UNILATERA IMAGING L ASSOCIATE COMPLETE S MINIMUM [address] LOWER 52045 [place], EXTREMITY 8 MEDICAL ZHAO P W/O IMAGING CONTRAST ASSOCIATE MATERIAL S 3D 98196 [place], RENDERING 8 MEDICAL ZHAO P IMAGING W/INTERP& ASSOCIATE POSTPROC S DIFF WORK STATION RADIOLOGI 68298 [place] [facility] 8 MEDICAL ZHAO P EXAMINATI IMAGING ON PELVIS ASSOCIATE 1/2 S VIEWS RADEX 05768 [facility] MEDICAL ZHAO P LUMBOSACR IMAGING AL ASSOCIATE MINIMUM 4 S VIEWS RADEX 79776 [place], SACRUM & 8 MEDICAL ZHAO P COCCYX IMAGING MINIMUM 2 ASSOCIATE VIEWS S INITIAL 45413 [facility] 8 DON R DON R CARE/DAY 50 MINUTES RADIOLOGI 97764 CARMICHAEL Angeles MEJIA 8 [place]IST[place] Carrillo EXAMINATI RADIOLOGY ON PELVIS 1/2 ASSOCIATE VIEWS S PSC GROUND A0425 [facility] MILEAGE 8 [place] PER STATUTE AMBULANCE AMBULANCE MILE AMBULANCE A0429 [facility] SERVICE 8 [place] BLS EMERGENCY AMBULANCE AMBULANCE TRANSPORT RADEX HIP 98829 CARMICHAEL Anabel MEJIA UNILATERA RADIOLOGY L COMPLETE ASSOCIATE MINIMUM 2 S PSC VIEWS DEBRIDEME 66595 KARRIE YOON, KORTNEY 8 KRISTI Akhtar MASTOIDEC JUANCHO CAVITY CMPLX ANESTHESI 26010 [facility] ZABRINA, A 8 ANESTH FAUSTO A EXTERNAL OF THE MIDDLE & BLUEGRASS INNER EAR W/BX NOS MICROSURG 14394 KARRIE YOON, TQS REQ 8 KRISTI Akhtar USE OPERATING MICROSCOP E LEVEL III 55077 PATHOLOGY PATHOLOGY SURG 8 & & PATHOLOGY CYTOLOGY CYTOLOGY LAB LAB GROSS&TANI ROSCOPIC EXAM MICROSURG 97623 KARRIE YOON, TQS REQ 8 KRISTI Hermilo KRISTI Akhtar USE OPERATING MICROSCOP E DEBRIDEME 84519 KARRIE YOON, NT 8 KRISTI BERRY Hermilo MASTOIDEC JUANCHO CAVITY SIMPLE Encounters Encounter Start End Date Code Location Performer Type Date OFFICE 01196 A C K[facility]PELA OUTPATIEN 7 7 NANCY FIELDS T VISIT PSC 15 MINUTES OFFICE 51651 [facility] Y[facility]ON OUTPATIEN 7 7 PHYSICIAN T VISIT S GROUP 15 MINUTES OFFICE 78697 [facility] OUTPATIEN 7 7 PHYSICIAN T VISIT S GROUP 15 MINUTES OFFICE 70818 [facility] OUTPATIEN 7 7 PHYSICIAN T VISIT S GROUP 15 MINUTES OFFICE 82758 A C KILPELA OUTPATIEN 7 7 NANCY FIELDS T VISIT PSC 15 MINUTES OFFICE 41978 A C KILPELA OUTPATIEN 7 7 NANCY FIELDS T VISIT PSC 15 MINUTES OFFICE 76198 [facility] OUTPATIEN 7 7 PHYSICIAN T VISIT S GROUP 15 MINUTES EMERGENCY 18013 [facility] 7 7 [facility] DEPARTMEN INC T VISIT MODERATE SEVERITY EMERGENCY 04500 [facility] ALEJANDRO 7 7 PHYSICIAN DEPARTMEN S, [facility] T VISIT HIGH/URGE NT SEVERITY [facility]OSP[facility] [place] [facility] INC T OFFICE 24688 A C KILPELA OUTPATIEN 7 7 NANCY FIELDS T VISIT PSC 15 MINUTES OFFICE 49301 A C K[facility]PELA OUTPATIEN 7 7 NANCY FIELDS T VISIT PSC 15 MINUTES HOSPITAL [place] [facility] T OFFICE 70064 [facility] RONDA CONSULTAT 7 7 PHYSICIAN ION S GROUP NEW/[facility] PATIENT 40 MIN OFFICE 58387 A C KILPELA OUTPATIEN 6 6 NANCY FIELDS T VISIT PSC 15 MINUTES OFFICE 73471 [facility] OUTPATIEN 6 6 PHYSICIAN KERI T VISIT S GROUP 10 MINUTES [facility]OSP[facility] [place] [facility] 6 6 [facility] INC [facility] [place] - 6 6 [facility] OUTPAT[facility] INC T OFFICE 23488 [facility] OUTPATIEN 6 6 PHYSICIAN KERI T VISIT S GROUP 15 MINUTES [facility] [place] - 6 6 [facility]PAT[facility] INC [facility] [place] [facility] T OFFICE 20252 [facility] OUTPAT[facility]EN 6 6 PHYSICIAN KERI T VISIT S GROUP 10 MINUTES [facility] [place] [facility] OUTPATIEN INC T OFFICE 20842 A C KILPELA OUTPATIEN 6 6 NANCY JUAREZ T VISIT PSC 25 MINUTES OFFICE 09467 A C FLORENTINO MARTY OUTPATIEN 6 6 NANCY FIELDS T VISIT PSC 15 MINUTES [facility] [place] [facility] 6 6 [facility] OUTPATIEN INC T OFFICE 49772 [facility] Y[facility]ON OUTPATIEN 6 6 PHYSICIAN KERI T VISIT S GROUP 15 MINUTES [facility] 44955 A C KILPELA PREVENTIV 6 6 NANCY JUAREZ E MED EST [facility] PATIENT 40-64YRS OFFICE 82564 [facility] Y[facility]ON OUTPATIEN 6 6 PHYSICIAN KERI T VISIT S GROUP 15 MINUTES OFFICE 78078 A C NANCY OUTPATIEN 6 6 NANCY OLSON T VISIT PSC 15 MINUTES OFFICE 65020 [place] HILLIARD OUTPATIEN 6 6 NANCY FIELDS JEMaxine T VISIT PSC 15 MINUTES OFFICE 68035 [facility] OUTPATIEN 6 6 PHYSICIAN KERI T VISIT S GROUP 15 MINUTES OFFICE 28926 [place] [facility] OUTPATIEN 5 5 NANCY FIELDS T VISIT PSC 25 MINUTES OFFICE 77552 [place] [facility] OUTPATIEN 5 5 NANCY FIELDS T VISIT PSC 15 MINUTES HOME [facility] 5 5 HOME INPATIENT HEALTH AGENCY HOME [facility], 5 5 HOME INPATIENT HEALTH AGENCY OFFICE 83962 [place] [facility] OUTPATIEN 5 5 NANCY FIELDS T VISIT PSC 15 MINUTES OFFICE 33096 [place] [facility] OUTPATIEN 5 5 NANCY FIELDS T VISIT PSC 15 MINUTES OFFICE 39653 [facility] OUTPATIEN 5 5 PHYSICIAN KERI T VISIT S GROUP 15 MINUTES [facility] [place] [facility] OUTPATIEN INC T EMERGENCY 13112 [facility] 5 5 [facility] DEPARTMEN INC T VISIT LOW/MODER SEVERITY EMERGENCY 94003 [facility] 5 5 PHYSICIAN H[facility] MODERATE SEVERITY OFFICE 18107 [facility] Y[facility]ON OUTPATIEN 5 5 PHYSICIAN KERI T NEW 30 S GROUP MINUTES OFFICE 64804 [place] FERGUSON OUTPATIEN 5 5 NANCY FIELDS T VISIT PSC 25 MINUTES OFFICE 90885 [place] [facility] OUTPATIEN 5 5 NANCY FIELDS T VISIT PSC 15 MINUTES OFFICE 53697 [place] [facility] OUTPATIEN 5 5 NANCY FIELDS T VISIT PSC 15 MINUTES OFFICE 95355 A C FLORENTINO MARTY OUTPATIEN 4 4 NANCY FIELDS T VISIT PSC 15 MINUTES OFFICE 34663 [facility] Y[facility]ON OUTPATIEN 4 4 KERI KERI T VISIT 15 MINUTES [facility]OSP[facility] [place] [facility] 4 [facility] OUTPATIEN INC T OFFICE 17106 [facility] YOON OUTPATIEN 4 4 KERI KERI T VISIT 15 MINUTES OFFICE 34821 FLORNETINO MARTY [place] MARTY OUTPATIEN 4 4 T VISIT 15 MINUTES OFFICE 54533 FLORENTINO MARTY [place] MARTY OUTPATIEN 4 4 T VISIT 25 MINUTES OFFICE 18128 FLORENTINO MARTY [place] MARTY OUTPATIEN 4 4 T VISIT 15 MINUTES [facility] [place] [facility] 4 [facility] OUTPATIEN INC T OFFICE 35602 FLORENTINOOBEY SANTAMARIAES MARTY OUTPATIEN 4 4 T VISIT 25 MINUTES OFFICE 66968 [facility] Y[facility]ON OUTPATIEN 4 4 KERI KERI T VISIT 15 MINUTES OFFICE 67225 FLOR[place]INO MARTY MUNOZES MARTY OUTPATIEN 4 4 T VISIT 15 MINUTES OFFICE 56671 FLOR[place]INO MARTY MUNOZES MARTY OUTPATIEN 3 3 T VISIT 10 MINUTES OFFICE 54439 FLORENTINOOBEY SANTAMARIAES MARTY OUTPATIEN 3 3 T VISIT 15 MINUTES OFFICE 39971 A C FLORENTINO MARTY OUTPATIEN 3 3 NANCY FIELDS T VISIT PSC 15 MINUTES OFFICE 67006 [place] [facility] OUTPATIEN 3 3 NANCY FIELDS T VISIT PSC 15 MINUTES OFFICE 00764 A C ARMINDA OUTPATIEN 3 3 NANCY JUAREZ T VISIT PSC 15 MINUTES [facility]OSP[facility] [place] [facility] 3 3 [facility] OUTPATIEN INC T HOME [facility], 3 3 HOME OUTPATIEN HEALTH T AGENCY OFFICE 11861 Maxine ARDONZAK OUTPATIEN 3 3 NANCY Fraga NEW 30 PSC MINUTES OFFICE 29684 LATONYA HOLGUINS OUTPATIEN 3 3 DON DON T VISIT 15 MINUTES OFFICE 48383 KARRIE YOON OUTPATIEN 3 3 KERI KERI T VISIT 15 MINUTES EMERGENCY 26102 [place] 3 3 [facility] DEPARTMEN INC T VISIT LOW/MODER SEVERITY [facility] [place] [facility] 3 3 [facility] OUTPATIEN INC T EMERGENCY 88486 STEFFANY JETER 3 3 III ADDIS III [facility] T VISIT HIGH/URGE NT SEVERITY [facility]OSPITAL [place] - 3 3 [facility] OUTPATIEN INC T OFFICE 45534 KARRIE LIMON OUTPATIEN 3 3 KERI KERI T VISIT 10 MINUTES OFFICE 15138 LATONYA HOLGUINS OUTPATIEN 3 3 DON DON T VISIT 15 MINUTES HOSP[facility] [place] - 3 3 [facility] OUTPATIEN INC T HOSPITAL [place] - 3 3 [facility] OUTPATIEN INC T PERIODIC 69737 LATONYA HOLGUINS PREVENTIV 3 3 DON DON E MED EST PATIENT 40-64YRS OFFICE 49595 KARRIE YOON OUTPATIEN 3 3 KERI KERI T VISIT 25 MINUTES HOME [facility] HEALTH, 3 3 HOME OUTPATIEN HEALTH T AGENCY HOME [facility], 2 2 HOME OUTPATIEN HEALTH T AGENCY EMERGENCY 06383 [facility] 2 2 [facility] DEPARTMEN INC T VISIT LOW/MODER SEVERITY EMERGENCY 60156 STEFFANY JETER 2 2 III ADDIS III ADDIS DEPARTMEN T VISIT HIGH/URGE NT SEVERITY [facility]OSPITAL [place] - 2 2 [facility] OUTPATIEN [facility] OFFICE 99596 [facility] HANKS OUTPATIEN 2 2 DON DON T VISIT 25 MINUTES [facility]OSPITAL [place] - 2 2 [facility] OUTPATIEN [facility] EMERGENCY 06412 NAHOMY COREA 2 2 [facility] T VISIT HIGH/URGE NT SEVERITY EMERGENCY 97431 [place] 2 2 [facility] T VISIT LOW/MODER SEVERITY OFFICE 08427 H[facility] HANKS OUTPATIEN 2 2 DON DON T VISIT 25 MINUTES OFFICE 97691 [facility] HANKS OUTPATIEN 2 2 DON DON T VISIT 25 MINUTES [facility]OSP[facility] [place] [facility] 2 2 [facility] OUTPATIEN [facility] OFFICE 91745 HANKS HANKS OUTPATIEN 2 2 DON DON T VISIT 25 MINUTES OFFICE 70231 [facility] HANKS OUTPATIEN 2 2 DON DON T VISIT 15 MINUTES [facility]OSP[facility] [place] [facility] 2 2 [facility] OUTPATIEN [facility] [place] [facility] 2 2 [facility] OUTPATIEN [facility] OFFICE 11675 HANKS HANKS OUTPATIEN 2 2 DON DON T VISIT 15 MINUTES HOME [facility]URSES HEALTH, 2 2 [facility] OUTPATIEN & HOME HE T HOME NURSES HEALTH, 2 2 [facility] OUTPATIEN & HOME HE OFFICE 23616 HANKS HANKS OUTPATIEN 2 2 DON DON T VISIT 15 MINUTES OFFICE 41343 [facility] HANKS OUTPATIEN 1 1 DON DON T VISIT 15 MINUTES [facility] [place] - 1 1 [facility] OUTPATIEN [facility] [place] - 1 1 [facility] OUTPATIEN INC T OFFICE 93732 [facility] HANKS OUTPATIEN 1 1 DON DON T VISIT 15 MINUTES OFFICE 95401 [place] [facility] 1 1 [place] DO T VISIT CLINIC 25 PSC MINUTES OFFICE 42551 [facility] HANKS OUTPATIEN 1 1 DON DON T VISIT 15 MINUTES [facility] [place] [facility] 1 [facility] T OFFICE 69720 [place] [facility] 1 1 [facility] DO T VISIT CLINIC 25 PSC MINUTES OFFICE 81303 HANKS HANKS OUTPATIEN 1 1 DON DON T VISIT 15 MINUTES EMERGENCY 59062 [place] 1 1 [facility] DEPARTMEN INC T VISIT HIGH/URGE NT SEVERITY EMERGENCY 84206 PEDRITO HERNANDEZ DEPT 1 1 EMERGENCY VISIT SERVICES HIGH SEVERITY& THREAT [facility] [place] [facility] 1 1 [facility] OUTPATIEN INC T OFFICE 25000 KARRIE YOON OUTPATIEN 1 1 KERI KERI T VISIT 15 MINUTES EMERGENCY 98765 PEDRITO JETER DEPT 1 1 EMERGENCY III ADDIS VISIT SERVICES HIGH SEVERITY& THREAT [facility] [place] - 1 1 [facility] OUTPATIEN INC T EMERGENCY 18799 [place] 1 1 [facility] DEPARTMEN INC T VISIT HIGH/URGE NT SEVERITY [facility] [place] [facility] 1 1 [facility] OUTPATIEN INC T OFFICE 77243 HANKS HANKS OUTPATIEN 1 1 DON DON T VISIT 15 MINUTES [facility] [place] [facility] 1 [facility] OUTPATIEN INC T OFFICE 36577 [facility] [place] CONSULTAT 1 1 [facility] NEW/ESTAB PSC PATIENT 60 MIN [facility]OSPITAL [place] - 1 1 [facility] OUTPATIEN [facility] OFFICE 97472 LATONYA HOLGUINS OUTPATIEN 1 1 DON DON T VISIT 15 MINUTES EMERGENCY 64891 [place] 1 1 [facility] DEPARTMEN [facility] T VISIT HIGH/URGE NT SEVERITY [facility]OSPITAL [place] - 1 1 [facility] OUTPATIEN [facility] EMERGENCY 73595 PEDRITO COREA DEPT 1 1 EMERGENCY TANI VISIT SERVICES HIGH SEVERITY& THREAT [facility] [place] - 1 1 [facility] OUTPATIEN [facility] H[facility] [place] - 0 0 [facility] OUTPATIEN [facility] OFFICE 26823 HANKS HANKS OUTPATIEN 0 0 DON DON T VISIT 15 MINUTES EMERGENCY 76436 PEDRITO HERNANDEZ DEPT 0 0 EMERGENCY VISIT SERVICES HIGH SEVERITY& THREAT FUN EMERGENCY 67533 [place] 0 0 [facility] T VISIT LOW/MODER SEVERITY OFFICE 01481 CONRAD MARTINES OUTPATIEN 0 0 RUPERT RUPERT T NEW 45 MINUTES OFFICE 35874 HANKS HANKS OUTPATIEN 0 0 DON DON T VISIT 15 MINUTES OFFICE 25630 YOON YOON OUTPATIEN 0 0 KERI KERI T VISIT 15 MINUTES HOSPITAL [place] [facility] 0 [facility] OUTPATIEN [facility] T OFFICE 37851 HANKS HANKS OUTPATIEN 0 0 DON DON T VISIT 15 MINUTES OFFICE 75908 [facility]ON Y[facility]ON OUTPATIEN 0 0 KERI KERI T VISIT 10 MINUTES OFFICE 07469 HANKS HANKS OUTPATIEN 0 0 DON DON T VISIT 15 MINUTES [facility]OSP[facility] [place] [facility] 0 0 [facility] OUTPATIEN INC T EMERGENCY 34405 [place] 0 0 [facility] DEPARTMEN INC T VISIT HIGH/URGE NT SEVERITY OFFICE 72701 LATONYA HANKS OUTPATIEN 0 0 DON DON T VISIT 15 MINUTES [facility] [place] - 0 0 [facility] OUTPATIEN [facility] T OFFICE 40279 LATONYA HANKS, OUTPATIEN 0 0 DON R DON R T VISIT 15 MINUTES OFFICE 36701 YOONKARRIE, OUTPATIEN 0 0 KRISTI G KRISTI G T VISIT 15 MINUTES HOSPITAL [place] - 0 0 [facility] OUTPATIEN [facility] T HOSPITAL [place] [facility] 0 0 [facility] T OFFICE 79867 KARRIE YOON OUTPATIEN 0 0 KRISTI G KRISTI G T VISIT 15 MINUTES [facility]OSP[facility] [place] - 0 0 [facility] OUTPATIEN [facility] T PERIODIC 61310 LATONYA HANKS, PREVENTIV 0 0 DON R DON R E MED EST PATIENT 40-64YRS OFFICE 50164 CONRAD MARTINES OUTPATIEN 0 0 , EDWIN EDWIN T VISIT W W 15 MINUTES HOSPITAL [place] - 0 0 [facility] OUTPATIEN [facility] T OFFICE 55600 LATONYA HANKS, OUTPATIEN 0 0 DON R DON R T VISIT 15 MINUTES EMERGENCY 44205 [place] 0 0 [facility] DEPARTMEN INC T VISIT HIGH/URGE NT SEVERITY [facility]OSP[facility] [place] - 0 0 [facility] OUTPATIEN [facility] T OFFICE 31014 LATONYA HANKS, OUTPATIEN 0 0 DON R DON R T VISIT 15 MINUTES [facility] [place] [facility] OUTPATIEN INC [facility] [place] [facility] OUT[facility]IEN [facility] T OFFICE 06737 BOWEN WISEMAN OUTPATIEN 0 0 TRACY TRACY T VISIT 15 MINUTES [facility] [place] [facility] 0 [facility] [place] [facility] [place] - 9 9 [facility] OUTPATIEN [facility] [place] - 9 9 [facility] OUTPATIEN [facility] T OFFICE 07674 LATONYA HANKS OUTPATIEN 9 9 DON R DON R T VISIT 15 MINUTES OFFICE 39998 BOWEN WISEMAN OUTPATIEN 9 9 TRACY TRACY T VISIT 15 MINUTES OFFICE 33769 [facility] W[facility]EMAN OUTPATIEN 9 9 TRACY TRACY T VISIT 15 MINUTES OFFICE 58177 LATONYA HANKS OUTPATIEN 9 9 DON R DON R T VISIT 15 MINUTES OFFICE 35747 LATONYA HANKS OUTPATIEN 9 9 DON R DON R T VISIT 15 MINUTES [facility] [place] [facility] 9 9 [facility] OUTPATIEN INC [facility] [place] - 9 9 [facility] OUTPATIEN [facility] T OFFICE 85230 LATONYA HANKS OUTPATIEN 9 9 DON R DON R T VISIT 15 MINUTES [facility] [place] - 9 9 [facility] OUTPATIEN INC [facility] [place] [facility] 9 9 [facility] OUTPATIEN INC [facility] [place] [facility] 9 9 [facility] T OFFICE 33260 BOWEN WISEMAN OUTPATIEN 9 9 TRACY TRACY T NEW 45 MINUTES EMERGENCY 58682 PEDRITO COREA, 9 9 EMERGENCY [facility] T VISIT MODERATE ASSOCIATE SEVERITY S [facility]OSP[facility] [place] - 9 9 [facility] OUTPATIEN INC T OFFICE 75880 LATONYA HANKS OUTPATIEN 9 9 DON R DON R T VISIT 15 MINUTES OFFICE 38882 LATONYA HANKS OUTPATIEN 9 9 DON R DON R T VISIT 15 MINUTES [facility] [place] [facility] 9 9 [facility] OUTPATIEN INC T EMERGENCY 03636 [facility] DEPT 9 9 [facility] VISIT INC HIGH SEVERITY& THREAT [facility] HOME 70256 FAMILY VISIT EST 9 9 HOME PT HEALTH MOD-HI CARE INC SEVERITY 40 MINUTES HOME FAMILY HEALTH, 9 9 HOME OUTPATIEN HEALTH T CARE INC HOME 74249 FAMILY VISIT EST 9 9 HOME PT HEALTH MOD-HI CARE INC SEVERITY 40 MINUTES HOME FAMILY HEALTH, 9 9 HOME OUTPATIEN HEALTH T CARE INC HOME FAMILY HEALTH, 9 9 HOME OUTPATIEN HEALTH T CARE INC HOME 02876 FAMILY VISIT EST 9 9 HOME PT HEALTH MOD-HI CARE INC SEVERITY 40 MINUTES OFFICE 53048 LATONYA HANKS OUTPATIEN 9 9 DON R DON R T VISIT 15 MINUTES OFFICE 36484 LATONYA HANKS OUTPATIEN 8 8 DON R DON R T VISIT 15 MINUTES [facility] [place] [facility] 8 8 [facility] OUTPATIEN INC T OFFICE 69514 LATONYA HANKS OUTPATIEN 8 8 DON R DON R T VISIT 15 MINUTES EMERGENCY 66448 CLARY SALDANA, 8 8 [facility] T VISIT ON MODERATE SEVERITY EMERGENCY 59599 [place] 8 8 [facility] DEPARTMEN INC T VISIT LOW/MODER SEVERITY [facility] [place] - 8 8 [facility] OUTPAT[facility]EN [facility] T [facility] [place] - 8 8 [facility] OUTPATIEN INC T [facility] [place] [facility] 8 [facility] OUTPATIEN INC T OFFICE 47936 LATONYA HANKS OUTPATIEN 8 8 DON R DON R T VISIT 15 MINUTES OFFICE 28552 LATONYA HANKS OUTPATIEN 8 8 DON R DON R T VISIT 15 MINUTES OFFICE 59697 LATONYA HANKS OUTPATIVARSHA 8 8 DON R DON R T VISIT 15 MINUTES OFFICE 24986 LATONYA HANKS OUTPATIEN 8 8 DON R DON R T VISIT 15 MINUTES HOME [facility], 8 8 [facility] 8 8 [facility] - OTHER E OFFICE 73755 KARRIE YOON OUTPATIEN 8 8 KRISTI BERRY G T VISIT 15 MINUTES [facility] 8 8 [facility] - OTHER E HOSPITAL [place] - 8 8 [facility] INPATIENT INC OFFICE 19722 KARRIE YOON OUTPATIEN 8 8 KRISTI BERRY G T VISIT 15 MINUTES
--- OUTSIDE RECORDS SUMMARY | 2017-04-07 20:14 | External Medical Summary Rpt | CCD ---
Author Author , [facility] Organization [facility] Address Unknown Phone [email or web address] Immunization Name Date Rout CVX Reac Dose Comm Prov Is Faci e tion ent ider Refu lity Give sed n Td 03-0 9 999 Hist H149 No H149 (félix 4-19 oric lt), 97 al Info adso rmat rbed ion - Sour ce Unsp ecif ied
--- OUTSIDE RECORDS SUMMARY | 2017-04-07 20:14 | External Medical Summary Rpt ---
Author Author [employer], [employer] Organization [employer] Address Unknown Phone Unavailable Results Thyroglobulin Ab [Units/volume] in Serum or Plasma Observa Value Referen Units Interpr Notes Date tion ce etation Range Thyroglob 0.0 - 0.9 IU/mL High Thyroglob Dec 11 ulin Ab ulin 2016 1:51 [Units/vo Antibody PM lume] in measured Serum or by Plasma [facility] Performed [facility]: - [facility] [address] [id number] [address] [place], [place] [id number] Film Examiner: Wili Aquino PhD, Phone: [phone] Thyroperoxidase Ab [Units/volume] in Serum or Plasma Observa Value Referen Units Interpr Notes Date tion ce etation Range Thyropero 0 - 34 IU/mL No Performed Dec 11 xidase Ab informati at: 2016 1:51 on in - [facility] PM [Units/vo source lume] in data [id number] Serum or 0 [place], [place] [id number] Film Examiner: Wili Aquino PhD, Phone: [phone] Thyroxine (T4) free [Mass/volume] in Serum or Plasma Observa Value Referen Units Interpr Notes Date tion ce etation Range Thyroxine 0.76 - ng/dL Normal No Dec 11 (T4) 1.46 informati 2016 1:51 free on in PM [Mass/vol source ume] in data Serum or Plasma Thyrotropin [Units/volume] in Serum or Plasma Observa Value Referen Units Interpr Notes Date tion ce etation Range Thyrotrop 0.358 - uIU/ml No No Dec 11 in 3.740 informati informati 2016 1:51 [Units/vo on in on in PM lume] in source source Serum or data data Plasma
--- OUTSIDE RECORDS SUMMARY | 2017-04-07 20:14 | External Medical Summary Rpt | CCD ---
Author Author , [facility] Address Unknown Phone [email or web address] Immunization Name Date Rout CVX Reac Dose Comm Prov Is Faci e tion ent ider Refu lity Give sed n Td 03-0 9 999 Hist H149 No H149 (félix 4-19 oric lt), 97 al Info adso rmat rbed ion - Sour ce Unsp ecif ied
--- OUTSIDE RECORDS SUMMARY | 2017-04-07 20:14 | External Medical Summary Rpt ---
[...] in measured Serum or by Plasma [facility] Performed at: - [facility] [address] [address] [address] [place], [place] [id number] [employer] Case Records Supervisor: Wili Aquino PhD, Phone: [phone] Thyroperoxidase Ab [Units/volume] in Serum or Plasma Observa Value Referen Units Interpr Notes Date tion ce etation Range Thyropero 0 - 34 IU/mL No Performed Dec 11 xidase Ab informati at: 2016 1:51 on in - [facility] PM [Units/vo source lume] in data [id number] Serum or 0 [place], [place] [id number] [employer] Case Records Supervisor: Wili Aquino PhD, Phone: [phone] Thyroxine (T4) free [Mass/volume] in Serum [...]
--- OUTSIDE RECORDS SUMMARY | 2017-04-07 20:57 | External Medical Summary Rpt | CCD ---
Author Author , ALVA Organization ALVA Address Unknown Phone [email or web address] Care Team Providers Care Technical Support Consultant Name Role Phone A Angeles CRUZ MD PSC, A Unavailable Unavailable Angeles CRUZ MD PSC RADHA GARCIA Unavailable Unavailable [facility] Unavailable Unavailable SERVICE, [facility] Unavailable Unavailable SERVICE, [facility] Unavailable Unavailable SERVICE, [facility] TRACY WISEMAN, Unavailable Unavailable TRACY WISEMAN [facility] Unavailable Unavailable LAB, [facility] MEME VALENTINE Unavailable Unavailable MEME YAZ, Unavailable Unavailable MEME YAZ STEPHANI VALENTINE, Unavailable Unavailable MEME, STEPHANI MARTINES RUPERT, Unavailable Unavailable MARTINES RUPERT MARTINES RUPERT, Unavailable Unavailable MARTINES RUPERT EDWIN MARTINES, Unavailable Unavailable EDWIN MARTINES [facility] Unavailable Unavailable [place], [facility] [place] [facility] Unavailable [facility], Unavailable [facility]available [facility] Unavailable Unavailable [facility]ARE [facility], [facility] Unavailable Unavailable [facility], [facility] FED[facility]ATED Unavailable Unavailable TRANSPORTATION SER, [facility] NAHOMY TANI, NAHOMY Unavailable Unavailable TANI ERIKA COREA, Unavailable Unavailable ERIKA COREA [facility] Unavailable Unavailable DOUGLAS, [facility] Unavailable Unavailable INC, [facility] Unavailable Unavailable HOSPITAL P, [facility] CALISTA MEJIA, Unavailable Unavailable CALISTA MEJIA HINES Unavailable Unavailable ANITA HOWARD Unavailable Unavailable MARIETTA HOWARD, Unavailable Unavailable MARIETTA HOWARD [facility], Unavailable Unavailable [facility] Unavailable Unavailable [facility], [facility], [facility]available Unavailable [facility] KILPELA, KILPELA Unavailable Unavailable KILPELA JEA, [...] JR DWI, AUDIE Unavailable Unavailable JR DWI [facility] Unavailable Unavailable 11, [facility] 11 [facility] Unavailable Unavailable ACTION, [facility] WACO O2, Unavailable Unavailable WACO O2 NAVIN HARRY, NAVIN Unavailable Unavailable HARRY PEDRITO SOLE, Unavailable Unavailable [facility] Unavailable Unavailable SERVICES, [facility]available Unavailable [facility], [facility] [place] [facility] ROB ZUNIGA JR Unavailable Unavailable F, [facility] ZUNIGA [facility] Unavailable Unavailable [facility], [facility] ZHAO CEJA, Unavailable Unavailable ZHAO CEJA FLORENTINO MARTY, FLORENTINO MARTY Unavailable Unavailable FLORENTINO MARTY, FLORENTINO MARTY Unavailable Unavailable MULBERRY HARRY, Unavailable Unavailable MULBERRY HARRY [facility] Unavailable Unavailable [facility], [facility] & Unavailable Unavailable HOME [facility], NURSES REGISTRY & HOME [facility] LABS, [facility], [facility] Unavailable Unavailable LABS, LLC [facility], Unavailable Unavailable PLL[facility], [facility] CY[facility]Y Unavailable Unavailable LAB, PATHOLOGY & CYTOLOGY LAB [facility], Unavailable Unavailable [facility], Unavailable Unavailable [facility] RONDA, RONDA Unavailable Unavailable JACKY LEI, Unavailable Unavailable JACKY CASON MD Unavailable Unavailable [facility], TRACY CASON MD [facility] SCIFRES ANG, SCIFRES Unavailable Unavailable ANG SCIFRES ANG, SCIFRES Unavailable Unavailable ANG SCIFRES, SG M, Unavailable Unavailable SCIFRES, SG M SOKAN BAB, SOKAN BAB Unavailable Unavailable SOKAN, NELA O, Unavailable Unavailable SOKAN, NEAL O [facility] Unavailable Unavailable [facility] GILMER SHE, Unavailable Unavailable GILMER SHE HANKS DON, Unavailable Unavailable HAKNS DON HANKS DON, Unavailable Unavailable HANKS DON HANKS, DON R, Unavailable Unavailable HANKS, DON R [facility], Unavailable Unavailable [facility]PPORT [facility], Unavailable Unavailable [facility] FAUSTO GERBER, Unavailable Unavailable FAUSTO GERBER [id number] # Unavailable Unavailable [id number], [facility] # [id number] FLAVIA ALEJANDRO Unavailable Unavailable [facility] Unavailable Unavailable AGENCY, [facility] WEHRMAN III ADDIS, Unavailable Unavailable WEHRMAN III ADDIS STEFFANY III ADDIS, Unavailable Unavailable WEHRVISHNU III ADDIS Ang Unavailable Unavailable SUE FIELDS, Rob OLSON, NANCY Unavailable Unavailable WHITNEY Purpose Continuity of Care Document - 07-04-2007 through 2016 Problems Code Diagnosis DOS Provider Status R748 ABNORMAL 02-21-2017 [facility] 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 12-11-2016 [facility] CIENCY PHYSICIANS RELATED GROUP DIFFUSE ENDEMIC GOITER E069 THYROIDITIS 12-11-2016 [facility] PHYSICIANS UNSPECIFIED GROUP R69 ILLNESS 12-11-2016 [facility] UNSPECIFIED TRANSPORTAT ION SER D649 ANEMIA 11-16-2016 [facility] UNSPECIFIED YOGESH HOLDINGS E785 HYPERLIPIDE 11-16-2016 [facility] GWEN YOGESH UNSPECIFIED HOLDINGS S17942 EPILEPSY 11-16-2016 [facility] UNS NOT YOGESH [...] DYSPHAGIA 10-16-2016 A Angeles CRUZ UNSPECIFIED PSC N55113V UNS FOREIGN 10-16-2016 A Angeles CRUZ BODY PSC LARYNX CAUS OTH INJURY INIT ENC Z6825 BODY MASS 10-16-2016 A Angeles CRUZ INDEX BMI PSC 25.0-25.9 ADULT E039 HYPOTHYROID 10-12-2016 [facility] ISM PHYSICIANS UNSPECIFIED GROUP [id number] FOOD IN 10-09-2016 [facility] ESOPHAGUS PHYSICIANS, CAUSING OTH PLLC INJURY INITIAL ENC Z0389 ENCOUNTER 10-09-2016 [facility] OT MEDICAL SUSPCT DZ & IMAGING ASS COND RULED OUT R2233 LOC 09-07-2016 A Angeles CRUZ SWELLING PSC MASS & LUMP UPPER LIMB BILATERAL K811 CHRONIC 07-05-2016 [facility] CHOLECYSTIT PHYSICIANS IS GROUP R85584 ENCOUNTER 07-05-2016 [facility] P AL CARIOVASCUL AR EXAM V40247 ENCOUNTER 07-05-2016 [facility] P AL RESPIRATORY EXAM G30441 ENCOUNTER 07-05-2016 [facility] P AL LABORATORY EXAM J309 ALLERGIC 05-31-2016 A Angeles CRUZ RHINITIS PSC UNSPECIFIED H7013 CHRONIC 05-26-2016 [facility] MASTOIDITIS PHYSICIANS BILATERAL GROUP H6522 CHRONIC 05-11-2016 [place] [facility]OUS [facility] OTITIS INC MEDIA LEFT EAR R4702 DYSPHASIA 05-11-2016 [facility] R7989 OTHER SPEC 05-11-2016 [facility]AL [facility]ICAL FINDINGS IMAGING ASS BLOOD CHEMISTRY R945 ABNORMAL 05-11-2016 [place] RESULTS OF [facility] LIVER INC FUNCTION [...] IMAGING ASS NEOPLASM BREAST H905 UNSPECIFIED 11-11-2015 [facility] PHYSICIANS SENSORINEUR GROUP AL HEARING LOSS J10225 ENCOUNTER 11-05-2015 [facility] STEAM GIGGER EXAM YOGESH GENERAL RTN HOLDINGS W/O ABNORMAL FIND H6092 UNSPECIFIED 09-22-2015 [facility] OTITIS PHYSICIANS EXTERNA GROUP LEFT EAR H7012 CHRONIC 09-22-2015 [facility] MASTOIDITIS PHYSICIANS LEFT EAR GROUP K81399 SPONDYLOSIS 07-01-2015 [facility] W/O PHYSICIANS MYELOPATH/R GROUP ADICULOPATH Y CERV RGN 4011 ESSENTIAL 03-05-2015 A Angeles PATEL MD PSC N, BENIGN 17055 03-05-2015 [facility] TRANSPORTAT ION SER 9331 FOREIGN 02-22-2015 [facility] BODY IN PHYSICIANS LARYNX GROUP 4019 UNSPECIFIED 02-15-2015 [facility] [facility]SSENTIAL [facility] HYPERTENSIO INC N 5303 STRICTURE 02-15-2015 [facility] STENOSIS OF INC ESOPHAGUS 72535 OTHER 02-15-2015 [facility] SYMPTOMS MEDICAL INVOLVING IMAGING ASS HEAD AND NECK 00880 DYSPHAGIA 02-15-2015 [facility] UNSPECIFIED PHYSICIANS, PLLC V140 PERSONAL 02-15-2015 [facility] HISTORY OF [facility] ALLERGY TO INC PENICILLIN 3814 NONSUPPRATV 01-20-2015 [facility] OTITIS PHYSICIANS MEDIA NOT GROUP SPEC ACUT/CHRON 3839 UNSPECIFIED 01-20-2015 [facility] PHYSICIANS MASTOIDITIS GROUP 4730 CHRONIC 01-20-2015 [facility] MAXILLARY PHYSICIANS SINUSITIS GROUP 2449 UNSPECIFIED 11-24-2014 [facility] HYPOTHYROID [place]M 38789 UNSPEC 11-24-2014 A Angeles CRUZ EPILEPSY PSC WITHOUT MENTION INTRACT EPILEPSY 4779 ALLERGIC 11-24-2014 A Angeles CRUZ RHINITIS PSC CAUSE UNSPECIFIED 3804 IMPACTED 09-10-2014 [facility] K[facility]I CERUMEN 3831 CHRONIC 09-10-2014 [facility] MASTOIDITIS 76933 ESOPHAGEAL 07-02-2014 A Angeles CRUZ REFLUX PSC 86968 SIMPLE/UNSP 04-09-2014 [facility] ECIFIED [facility] P SEROUS OTITIS MEDIA 68536 UNSPECIFIED 04-09-2014 [facility] [place] [address] [place] 04-09-2014 [facility] PERAZA OF [facility] P AND MASTOID 99505 OTHER CHEST 01-20-2014 FLORENTINO MARTY PAIN 3674 PRESBYOPIA 12-12-2013 SCIFRES ANG 4770 ALLERGIC 10-31-2013 FLORENTINO MARTY RHINITIS DUE TO POLLEN V7612 OTHER 09-30-2013 [place] SCREENING [facility] MAMMOGRAM INC 2859 UNSPECIFIED 09-15-2013 [facility] 4610 ACUTE 09-04-2013 KARRIE SAAVEDRA MAXILLARY SINUSITIS 4612 ACUTE 09-04-2013 [facility] SAAVEDRA ETHMOIDAL SINUSITIS 7840 HEADACHE 08-07-2013 FLORENTINO MARTY 77791 CRAMP OF 05-01-2013 FLORENTINO MARTY LIMB 38021 HYPERTENSIO 02-12-2013 Maxine CELESTIN MD [facility] 97629 OTHER 02-11-2013 [place] CONVULSIONS [facility] 84368 OBSTRUCTIVE 2012 KARRIE SAAVEDRA SLEEP APNEA 401.9 401.9 12-20-2012 [place] HYPERTENSIO [facility] N NOS Hospital 493.90 493.90 12-20-2012 [place] ASTHMA, [facility] UNSPECIFIED Hospital 36733 ASTHMA, 12-20-2012 [place] UNSPECIFIED [facility] UNSPECIFIED STATUS 530.3 530.3 12-20-2012 [place] ESOPHAGEAL [facility] STRICTURE Hospital 780.39 780.39 12-20-2012 [place] OTHER [facility] CONVULSIONS Hospital 9351 FOREIGN 12-20-2012 WEHRMAN III BODY IN ADDIS ESOPHAGUS V14.0 V14.0 12-20-2012 [place] HX-PENICILL [facility] IN ALLERGY Hospital 2409 GOITER, 12-12-2012 [place] UNSPECIFIED [facility] 2459 UNSPECIFIED 12-09-2012 KARRIE SAAVEDRA THYROIDITIS 7881 DYSURIA 10-14-2012 [facility] DON 13076 BLISTERS 10-14-2012 [facility] WITH DON EPIDERMAL LOSS DUE TO BURN-BREAST 2724 OTHER AND 09-12-2012 [place] UNSPECIFIED [facility] HYPERLIPIDE GWEN V7231 ROUTINE 09-06-2012 [facility] GYNECOLOGIC DON AL EXAMINATION 81385 OSTEOARTHRO 06-27-2012 [facility] S UNSPEC HEALTH WHETHER AGENCY GEN/LOC UNSPEC SITE 7812 ABNORMALITY 06-27-2012 [facility] AGENCY 7993 UNSPECIFIED 06-27-2012 [facility] DEBILITY HEALTH AGENCY V571 OTHER 06-27-2012 [facility] PHYSICAL HEALTH THERAPY AGENCY 6259 UNSPEC 06-08-2012 [facility] IM[facility]ING ASS W/FEMALE GENITAL ORGANS 98940 PAIN IN 06-08-2012 [facility] PELVIC IMAGING ASS REGION AND THIGH 7295 PAIN IN 06-08-2012 [facility] TISSUES OF SERVICE LIMB 8439 SPRAIN&STRA 06-08-2012 WEHRMAN III IN OF ADDIS UNSPECIFIED SITE OF HIP&THIGH E8889 UNSPECIFIED 06-08-2012 [facility]ALL [facility] SERVICE 6980 PRURITUS 06-05-2012 [facility] ANI DON 98996 OSTEOARTHRO 06-04-2012 [place] S UNSPEC MEDICAL GEN/LOC IMAGING ASS PELV REGION&THIG H 11171 DEGEN 06-04-2012 [facility] LUMBAR/LUMB MEDICAL OSACRAL IMAGING ASS INTERVERTEB RAL DISC 7243 SCIATICA 06-04-2012 [facility] 8472 LUMBAR 06-04-2012 [facility] SPRAIN AND [facility] STRAIN INC 7821 RASH AND 05-31-2012 [facility] OTHER DON NONSPECIFIC SKIN ERUPTION 37551 PAIN IN 05-03-2012 [facility] JOINT, DON SHOULDER REGION 4554 EXTERNAL 02-23-2012 [facility] THROMBOSED DON HEMORRHOIDS 931 FOREIGN 01-29-2012 [facility] BODY [place] 43450 HEMANGIOMA 01-05-2012 [facility] OF SKIN AND DON SUBCUTANEOU S TISSUE 3813 OTHER&UNSPE 07-12-2011 [facility] C CHRONIC DON NONSUPPURAT [place] OTITIS MEDIA 18336 LOC-REL 04-11-2011 NEW [facility] & [place] ES W/SPS CLINIC PSC W/O INTRACTABL EPIL 318 OTHER 03-27-2011 SUPPORT SPECIFIED SOURCE INTELLECTUA L DISABILITIE S 2761 HYPOSMOLALI 2010 [place] TY AND/OR EMERGENCY HYPONATREMI SERVICES A 7802 SYNCOPE AND 2010 [facility] COLLAPSE [facility]ANCE SERVICE 72968 NAUSEA WITH 2010 [facility] VOMITING [facility] INC 90257 VOMITING 2010 [place] ALONE [facility]Y SERVICES 4739 UNSPECIFIED 12-18-2010 [place] SINUSITIS [facility]ERGENCY SERVICES 7804 DIZZINESS 12-18-2010 [place] AND EMERGENCY GIDDINESS SERVICES 7862 COUGH 12-18-2010 [facility] 7906 OTHER 10-04-2010 [facility] ABNORMAL [facility] BLOOD INC CHEMISTRY 28882 OTHER 09-27-2010 NEW CONDITIONS [place] OF [facility]RAIN CLINIC PSC 460 ACUTE 09-19-2010 [facility] NASOPHARYNG DON ITIS 7810 ABNORMAL 08-20-2010 [facility] INVOLUNTARY AMBULANCE MOVEMENTS SERVICE 83492 MUSCLE 05-13-2010 [place] WEAKNESS [facility]ERGENCY (GENERALIZE SERVICES D) 23863 OTHER 05-13-2010 [facility] AND [facility] FATIGUE INC 36007 HYPERSOMNIA 04-08-2010 [facility] WITH SLEEP RUPERT APNEA UNSPECIFIED 73120 HYPERSOMNIA 04-08-2010 MARTINES RUPERT UNSPECIFIED 84333 UNSPECIFIED 03-31-2010 [facility] INFECTIVE OTITIS EXTERNA 5589 OTH&UNSPEC 03-18-2010 [facility] NONINFECTIO DON US GASTROENTER ITIS&COLITI S 7847 EPISTAXIS 03-03-2010 YO[facility] KERI 39408 ABDOMINAL 02-11-2010 [facility] PAIN RIGHT DON LOWER QUADRANT 90893 ABDOMINAL 02-11-2010 [facility] PAIN, LEFT DON LOWER QUADRANT 3829 UNSPECIFIED 12-22-2009 [facility], OTITIS DON R MEDIA 03595 THYROTOX 11-02-2009 KARRIE, W/O KRISTI G GOITER/OTH CAUSE W/O CRISIS 48680 OPEN 08-19-2009 [facility] OTHER [facility] SPECIFIED PART PELVIS OTHER 08809 EPILEPSY 08-13-2009 [facility] COMP PG DON R /PP UNSPEC EPIS CARE/NA 05365 REFLUX 07-28-2009 [place] R 56798 UNSPECIFIED 07-28-2009 [place] N 833[address] CLOSED 07-27-2009 [facility] FRACTURE [facility] UNSPECIFIED INC PART RADIUS W/ULNA 2630 MALNUTRITIO 07-13-2009 [facility] HE [facility] CENTER DEGREE 54747 OTHER 07-13-2009 [place] CLOSED [facility]ICAL FRACTURES IMAGING OF DISTAL ASSOCIATES END OF RADIUS 15570 CLOSED 07-13-2009 [place] FRACTURE OF TRACY DISTAL END OF ULNA V653 DIETARY 07-13-2009 [facility] COUNSELING 462 ACUTE 03-17-2009 HAN[facility], PHARYNGITIS DON R 4660 ACUTE 03-17-2009 HANKS, [place] R [address] CLOSED 03-09-2009 [facility] FRACTURE OF [facility] INC UNSPECIFIED PART OF RADIUS 09392 UNSPECIFIED 03-09-2009 [place] CLOSED [facility]ICAL FRACTURE OF IMAGING CARPAL ASSOCIATES BONE 33642 UNSPECIFIED 02-03-2009 [facility], SITE OF DON R ANKLE SPRAIN AND STRAIN 76493 CLOSED 01-12-2009 [facility] COLLES [facility] FRACTURE INC 79103 CLOSED 01-08-2009 [facility] FRACTURE OF [facility] LOWER END INC OF RADIUS WITH ULNA E8490 PLACE OF 01-07-2009 [place] OCCURRENCE, MEDICAL HOME IMAGING ASSOCIATES E8842 ACCIDENTAL 01-07-2009 [place] FROM MEDICAL CHAIR IMAGING ASSOCIATES 920 CONTUSION 12-04-2008 [facility] FACE AMBULANCE SCALP AND SERVICE NECK EXCEPT EYE 36991 OTHER 11-05-2008 COMBINED ABNORMAL PHYSICIANS GLUCOSE LAB V5869 LONG-TERM 10-23-2008 [facility] (CURRENT) HEALTH USE OF CARE INC OTHER MEDICATIONS V5883 ENCOUNTER 10-23-2008 [facility] FOR [facility]ALTH THERAPEUTIC CARE INC DRUG MONITORING 4659 ACUTE URIS 09-15-2008 [facility] OF DON R UNSPECIFIED SITE 7823 EDEMA 01-08-2008 HANKS, DON R 7242 LUMBAGO 01-02-2008 [facility] INC 7245 UNSPECIFIED 01-02-2008 [facility] 7859 OTHER 12-05-2007 [facility] MEDICAL INVOLVING IMAGING CARDIOVASCU ASSOCIATES LAR SYSTEM 7820 DISTURBANCE 11-25-2007 [place] OF SKIN DON R SENSATION 8088 UNSPECIFIED 11-13-2007 [place] CLOSED DON R FRACTURE OF PELVIS 4618 OTHER ACUTE 09-18-2007 [place] SINUSITIS DON R 808 FRACTURE OF 09-02-2007 [facility] P[facility]VIS HOME Crovat 3489 UNSPECIFIED 08-29-2007 [facility] CONDITION HEALTH OF BRAIN AGENCY V1588 PERSONAL 08-29-2007 [facility] HISTORY OF HEALTH FALL AGENCY 8208 CLOSED 07-31-2007 [facility] FRACTURE AMBULANCE UNSPECIFIED SERVICE PART NECK FEMUR 8082 CLOSED 07-27-2007 [place] FRACTURE OF MEDICAL PUBIS IMAGING ASSOCIATES 39310 UNS ADVRS 07-27-2007 [place] EFF OTH RX [facility] MEDICINAL&B INC IOLOGICAL SBSTNC 7937 NONSPC ABN 07-26-2007 [place] FIND RAD RADIOLOGY & OTH EXM ASSOCIATES [...] 07 08 7. 10 00 HO Ac FL 06 -1 -0 50 00 ME ti [...] 00 7- 0- 00 06 TO ve FL 51 20 20 07 WN IL 80 [...] 00 7- 6- 00 06 TO ve FL 51 20 20 07 WN IL 80 [...] 00 6- 1- 00 06 TO ve FL 51 20 20 07 WN IL 80 [...] 00 6- 0- 00 06 TO ve FL 51 20 20 07 WN IL 80 [...] CY NT HI AN A 64 02 04 [...] ET NT HI AN A 60 04 04 [...] 8- 8- 00 SI 11 HE ve FL 02 20 20 DE NS ED 20 [...] 3- 2- 00 SI 47 HE ve FL 75 20 20 DE NS IL 98 [...] 3- 1- 00 SI 47 HE ve FL 75 20 20 DE NS IL 98 [...] E TA 10 BL 05 ET 91 FL 68 06 06 0 15 3 71 [...] ME 59 06 06 0 20 10 71 WE Ac CL 74 -2 -2 [...] 09 11 11 E 9 PH DO FL AR N OP MA R CY 50 [...] 09 [address] [place] AR OR OP MA G CY 50 [...] 1- 1- 00 SI 44 HE ve FL 75 20 20 DE NS IL 96 [...] 1- 9- 00 SI 44 HE ve FL 75 20 20 DE NS IL 96 [...] .0 ST 56 WS ti TH 81 1 7- SI 48 ON ve YR 81 [...] 1- 0- 00 SI 44 HE ve FL 75 20 20 DE NS IL 96 [...] ST 44 EP ti YT 24 9 00 SI 55 HE ve OI 11 20 20 DE NS N 10 10 10 SO 3 PH DO D AR N EX MA R T CY 10 0 OF MG CY CA NT P HI AN A LE 00 05 06 5 30 30 EA 17 LA Ac VO 37 -1 -[address] 56 WS ti TH 81 0 SI 48 ON ve YR 81 20 20 DE OX 30 [address] E AR OR 12 MA G 5 CY MC G OF TA BL CY ET NT HI AN A LI 00 12 06 [address] Ac SI 17 -0 -[address] 37 EP ti NO 23 SI 44 HE ve FL 75 20 20 DE NS IL 96 09 10 0 PH DO 10 AR N MA R MG CY TA OF BL ET CY NT HI AN A PH 51 02 05 5 [address] Ac EN 67 -1 -[address] 44 EP ti YT 24 9 SI 55 HE ve OI 11 20 20 DE NS N 10 10 10 SO 3 PH DO D AR N EX MA R T CY 10 0 OF MG CY CA NT P HI AN A LE 00 05 05 5 30 30 EA 17 LA Ac VO 37 -1 -[address] 56 WS ti TH 81 SI 48 ON ve YR 81 20 20 DE OX 30 [address] E AR OR 12 MA G 5 CY MC G OF TA BL CY ET NT HI AN A NE 24 05 05 [...] CY SO NT LN HI AN A ME 00 04 05 1 21 6 EA 17 LA Ac TH 78 -1 -[address] 15 WS ti YL 15 2- 3- 00 SI 51 ON ve FL 02 20 20 DE ED 20 [address] SO AR OR LO MA G NE CY 4 OF MG CY DO NT SE HI PK AN A LI 00 12 04 [address] Ac SI 17 -0 -[address] 37 EP ti NO 23 1- 9- 00 SI 44 HE ve FL 75 20 20 DE NS IL 96 [...] 2- 2- 00 SI 51 ON ve FL 02 20 20 DE ED 20 10 [...] NO 23 1 SI 44 HE ve FL 75 20 20 DE NS IL 96 09 10 0 PH DO 10 AR N MA R MG CY TA OF BL ET CY NT HI AN A LE 00 02 03 [address] Ac VO 37 -1 -[address] 44 EP ti TH 81 9 SI 56 HE ve YR 81 20 [...] ST 44 EP ti YT 24 9 SI 55 HE ve OI 11 20 [...] CY BL NT ET HI AN A PO 00 02 02 00 [address] Ac LY 57 -0 -[address] 22 EP ti ET 40 3 SI 13 HE ve HY 41 20 20 0 DE NS LE 20 10 10 NE 5 PH DO AR N GL MA R YC CY OL OF 33 CY 50 NT HI PO AN WD A 60 01 02 01 [address] Ac 25 -1 -[address] 94 EP ti 80 3- - 00 SI 73 HE ve 23 20 [...] NT ET HI AN A LE 00 05 25 02 [address] Ac VO 37 -0 -[address] 37 EP ti TH 81 8 SI 43 HE ve YR 81 20 20 DE NS OX 90 09 10 IN 1 PH DO E AR N 20 MA R 0 CY MC G OF TA CY BL NT ET HI AN A LI 00 05 25 02 [address] Ac SI 17 -0 -[address] 37 EP ti NO 23 1 8- 00 SI 44 HE ve FL 75 20 20 DE NS IL 96 09 10 0 PH DO 10 AR N MA R MG CY TA OF BL CY ET NT HI AN A 60 01 00 [address] [...] NT ET HI AN A LI 00 05 25 [address] Ac SI 17 -0 -[address] 37 EP ti NO 23 1- 4- 00 SI 44 HE ve FL 75 20 20 DE NS IL 96 [...] HI P AN A LI 00 12 12 [address] Ac SI 17 -0 -[address] 37 EP ti NO 23 1- 7- 00 SI 44 HE ve FL 75 20 20 DE NS IL 96 09 09 0 PH DO 10 AR N MA R MG CY TA OF BL CY ET NT HI AN A LE 00 12 12 00 [...] CY BL NT ET HI AN A NE 24 11 12 [...] 3- 9- 00 SI 09 HE ve FL 75 20 20 DE NS IL 96 [...] HI P AN A LE 00 09 10 01 [...] CA HI P AN A LE 00 08 08 00 [...] BL NT ET HI AN A 00 07 07 00 30 7 EA 13 RO Ac 37 -2 -[address] 56 LA ti 80 1- 0- 00 SI 84 ND ve 15 20 20 DE O 50 09 09 CH 5 PH EN AR G MA PS CY C OF CY NT HI AN A PH 51 07 07 [...] CA HI P AN A LE 00 07 07 00 [...] ET HI AN A PH 51 02 07 04 [...] CA HI P AN A ME 00 11 12 [address] Ac TH 78 -2 -[address] 42 EP ti YL 15 5- 4- 00 SI 66 HE ve FL 02 20 20 DE NS ED 20 [...] CY NT CA HI P AN A BA 00 02 04 00 15 3 [...] 10 0 LL MG C CA P PO 51 02 04 00 25 15 ME 25 No Ac LY 99 -0 -1 5. D 42 t ti ET 10 6- 7- 00 CA 76 Av ve HY 45 20 20 0 RE 3 ai LE 75 08 08 la NE 8 PH bl AR e GL MA YC CY OL LL 33 C 50 PO WD 00 02 04 00 20 5 ME 25 No Ac 60 -0 -1 .0 D 42 t ti 35 6- 7- 00 CA 76 Av ve 46 20 20 RE 7 ai 83 08 08 la 2 PH bl AR e MA CY LL C MA 00 02 04 00 20 5 ME 25 No Ac PA 90 -0 -1 .0 D 42 t ti P 41 6- 7- 00 CA 76 Av ve 50 98 20 20 RE 5 ai 0 86 08 08 la MG 1 PH bl AR e TA MA BL CY ET LL C BI 00 02 04 00 [...] 00 10 15 ME 25 No Ac FL 06 -0 -1 .0 D 42 t [...] CY RA NT Y HI AN A ME 00 03 04 00 21 6 EA 97 No Ac TH 78 -2 -[address] 36 t ti YL 15 6- 0- 00 SI 22 Av ve FL 02 20 20 DE ai ED 20 08 08 la NI 7 PH bl SO AR e LO MA NE CY 4 OF MG CY NT DO HI SE AN PK A MA 00 02 04 00 1. 1 ME 25 No Ac PA 90 -1 -0 00 D 54 t ti P 41 1- 7- 0 CA 21 Av ve 50 98 20 20 RE 8 ai 0 86 08 08 la MG 1 PH bl AR e TA MA BL CY ET LL C TH 00 02 04 00 4. 4 [...] MG C CA P NA 68 02 04 00 27 14 ME 25 No Ac FL 46 -0 -0 .0 D 42 t ti OX 20 6- 7- 00 CA 76 Av ve EN 19 20 20 RE 1 ai 00 08 08 la 50 5 PH bl 0 AR e MG MA CY TA BL LL ET C PO 51 02 04 00 25 [...] CA PS UL E PO 51 02 03 00 25 15 ME 25 No Ac LY 99 -0 -2 5. D 42 t ti ET 10 6- 6- 00 CA 76 Av ve HY 45 20 20 0 RE 3 ai LE 75 08 08 la NE 8 PH bl AR e GL MA YC CY OL LL 33 C 50 PO WD BA 00 02 03 00 15 3 ME 25 No Ac CI 16 -0 -2 .0 D 42 t ti TR 80 6- 6- 00 CA 77 Av ve AC 02 20 20 RE 0 ai IN 13 08 08 la -P 5 PH bl OL AR e YM MA YX CY IN LL OI C NT ME NT DI 00 02 03 00 30 30 [...] TA MA BL CY ET LL C 00 02 03 00 20 5 ME 25 No Ac 60 -0 -2 .0 D 42 t ti 35 6- 6- 00 CA 76 Av ve 46 20 20 RE 7 ai 83 08 08 la 2 PH bl AR e MA CY LL C NA 68 02 03 00 60 30 ME 25 No Ac FL 46 -0 -2 .0 D 42 t ti OX 20 6- 6- 00 CA 76 Av ve EN 19 20 20 RE 1 ai 00 08 08 la 50 5 PH bl 0 AR e MG MA CY TA BL LL ET C CI 00 02 03 00 10 15 ME 25 No Ac FL 06 -0 -2 .0 D 42 t ti O 58 6- 6- 00 CA 77 Av ve HC 53 20 20 RE 2 ai 11 08 08 la OT 0 PH bl IC AR e MA SEPULVEDA CY SP EN LL SI C ON PH 62 02 03 00 60 30 [...] BL CY ET LL C PH 51 12 03 01 12 30 [...] Procedure DOS Code Location Performer Comment COMPREHEN [id number] [facility] 7 [facility] PANEL NONEMERG A0120 FEDERATED FEDERATED TRNSPRT: 7 MINI-BUS TRANSPORT TRANSPORT [facility]N [facility]/OT SYS NONEMERG A0120 FEDERATED FEDERATED TRNSPRT: 7 MINI-BUS TRANSPORT TRANSPORT MTN [facility]/OT SYS LIPID 13312 [place] PANEL 7 NANCY FIELDS PSC DRUG [id number] LAB MAX LAB MAX SCREEN 7 YOGESH YOGESH [employer] [place] [facility] PINE COLLECTIO [address] [place] HILLIARD N VENOUS 7 NANCY FIEL[place] [address] LAB MAX LAB MAX FREE 7 YOGESH YOGESH THYROXINE HOLDINGS HOLDINGS GENERAL [address] LAB MAX [facility] MAX HEALTH 7 YOGESH YOGESH PANEL HOLDINGS HOLDINGS OPHTH [address] [facility] 7 XM&EVAL COMPRHNSV ESTAB PT 1/> NONEMERG A0120 FEDERATED FEDERATED TRNSPRT: 7 MINI-BUS TRANSPORT TRANSPORT MTN [facility]/OT SYS RADIOLOGI 75592 [facility] 7 MEDICAL EXAMINATI IMAGING ON CHEST ASS SINGLE VIEW FRONTAL THER 40211 CAYETANO MONTEIRO PROPH/DX 7 [facility] NJX IV INC INC PUSH SINGLE/1S T SBST/DRUG UNCLASSIF J3490 CAYETANO MONTEIRO IED DRUGS 7 [facility] INC INC NONEMERG A0120 FEDERATED FEDERATED TRNSPRT: 7 MINI-BUS TRANSPORT TRANSPORT MTN [facility]/OT SYS NONEMERG A0120 FEDERATED FEDERATED TRNSPRT: 7 MINI-BUS TRANSPORT TRANSPORT MTN ATION SER ATION SER AREA/OTH SYS ECG 31006 CAYETANO MONTEIRO ROUTINE 7 [facility] ECG INC INC W/LEAST 12 LDS TRCG ONLY W/O I&R COLLECTIO 80839 CAYETANO MONTEIRO N VENOUS 7 [facility] BLOOD INC INC VENIPUNCT URE COMPREHEN 14968 CAYETANO MONTEIRO SIVE 7 [facility] METABOLIC INC INC PANEL ECG 05771 CAYETANO GARCIA ROUTINE 7 [facility] W/LEAST P 12 LDS I&R ONLY THERAPEUT 05293 Maxine HILLIARD IC 6 NANCY FIELDS PROPHYLAC PSC TIC/DX INJECTION SUBQ/IM NONEMERG A0120 FEDERATED FEDERATED TRNSPRT: 6 MINI-BUS TRANSPORT TRANSPORT MTN ATION SER ATION SER AREA/OTH SYS UNCLASSIF J3490 CAYETANO MONTEIRO IED DRUGS 6 [facility] INC INC HEPATOBIL 32680 CAYETANO MONTEIRO SYST 6 [facility] IMAG INC INC INC GB W/PHARMA INTERVENJ NONEMERG A0120 FEDERATED FEDERATED TRNSPRT: 6 MINI-BUS TRANSPORT TRANSPORT MTN ATION SER [place] AREA/[place] [address] CAYETANO MONTEIRO ABDOMINAL 6 [facility] REAL INC INC TIME W/IMAGE LIMITED RADEX 93591 CAYETANO MONTEIRO ESOPHAGUS 6 [facility] INC INC NONEMERG A0120 FEDERATED FEDERATED TRNSPRT: 6 MINI-BUS TRANSPORT TRANSPORT MTN ATION SER ATION SER AREA/OTH SYS COMPREHEN 95180 [facility] SIVE 6 DIAGNOSTI DIAGNOSTI METABOLIC CS CS PANEL COLLECTIO 59326 Maxine HILLIARD N VENOUS 6 NANCY FIELDS [place] [address] CAYETANO MONTEIRO FREE 6 [facility] [place] [address] CAYETANO MONTEIRO THYROID 6 [facility] STIMULATI INC INC NG HORMONE TSH NONEMERG A0120 FEDERATED FEDERATED TRNSPRT: 6 MINI-BUS TRANSPORT TRANSPORT MTN ATION SER ATION SER AREA/OTH SYS NONEMERG A0120 FEDERATED FEDERATED TRNSPRT: 6 MINI-BUS TRANSPORT TRANSPORT MTN ATION SER ATION SER AREA/OTH SYS COLLECTIO 17408 Maxine C KILZAK N VENOUS 6 NANCY FIELDS JEMaxine BLOOD PSC VENIPUNCT URE COMPREHEN 15184 LAB MAX LAB MAX SIVE 6 [facility] METABOLIC HOLDINGS HOLDINGS PANEL NONEMERG A0120 FEDERATED FEDERATED TRNSPRT: 6 MINI-BUS TRANSPORT TRANSPORT MTN ATION SER ATION SER AREA/OTH SYS RADEX 48002 CAYETANO MONTEIRO ESOPHAGUS 6 [facility] INC INC NONEMERG A0120 FEDERATED FEDERATED TRNSPRT: 6 MINI-BUS TRANSPORT TRANSPORT MTN ATION SER ATION SER AREA/OTH SYS COLLECTIO 91812 CAYETANO MONTEIRO N VENOUS 6 [facility] [place]LO[place] [address] CAYETANO MONTEIRO FREE 6 [facility] [place] [address] CAYETANO MONTEIRO THYROID 6 [facility] STIMULATI INC INC NG HORMONE TSH NONEMERG A0120 FEDERATED FEDERATED TRNSPRT: 6 MINI-BUS TRANSPORT TRANSPORT MTN ATION SER ATION SER AREA/OTH SYS NONEMERG A0120 FEDERATED FEDERATED TRNSPRT: 6 MINI-BUS TRANSPORT TRANSPORT MTN ATION SER ATION SER AREA/OTH SYS RADEX 96389 CAYETANO MONTEIRO RIBS UNI 6 [facility] W/POSTERO INC INC ANT CH MINIMUM 3 VIEWS NONEMERG A0120 FEDERATED FEDERATED TRNSPRT: 6 MINI-BUS TRANSPORT TRANSPORT MTN ATION SER ATION SER AREA/[place] [address] LAB MAX LAB MAX THYROID 6 [facility] STIMULATI HOLDINGS [place] [address] LAB MAX LAB MAX FREE 6 [facility] [place] [address] LAB MAX LOUISVILL MAGNESIUM 6 YOGESH E O2 HOLDINGS COMPREHEN 90714 LAB MAX LAB MAX SIVE 6 [facility] METABOLIC HOLDINGS HOLDINGS PANEL DRUG 31673 LAB MAX LAB MAX SCREEN 6 [facility] QUANTITAT HOLDINGS HOLDINGS BROOKLYNN OXCARBAZE PINE NONEMERG A0120 FEDERATED FEDERATED TRNSPRT: 6 MINI-BUS TRANSPORT TRANSPORT MTN ATION SER ATION SER AREA/OTH SYS THERAPEUT 66008 A C A C IC 6 NANCY [...] SER ATION SER AREA/OTH SYS SCREENING G0202 CAYETANO MONTEIRO 6 [facility] MAMMOGRAP INC INC HY KEVIN INCL CAD WHEN PERFORMD 86125 CAYETANO MONTEIRO AIDED 6 [facility] DETECTION INC INC SCREENING MAMMOGRAP HY NONEMERG A0120 FEDERATED FEDERATED TRNSPRT: 6 MINI-BUS TRANSPORT TRANSPORT MTN ATION SER ATION SER AREA/OTH SYS NONEMERG A0120 FEDERATED FEDERATED TRNSPRT: 6 MINI-BUS TRANSPORT TRANSPORT MTN ATION SER ATION SER AREA/OTH SYS CYTP 54467 LAB MAX LAB MAX CERV/VAG 6 YOGESH YOGESH AUTO THIN HOLDINGS HOLDINGS LAYER PREP MNL SCREEN NONEMERG A0120 FEDERATED FEDERATED TRNSPRT: 6 MINI-BUS TRANSPORT TRANSPORT MTN ATION SER ATION SER AREA/OTH SYS THYROID 36167 LAB MAX LAB MAX HORM 6 [facility] UPTK/THYR HOLDINGS HOLDINGS [place] [address] LAB MAX LAB MAX THYROXINE 6 [facility] [place] [address] LAB MAX LAB MAX TRIIODOTH 6 YOGESH YOGESH YRONINE HOLDINGS HOLDINGS T3 TOTAL TT3 BASIC 45065 LAB MAX LAB MAX METABOLIC 6 YOGESH YOGESH PANEL HOLDINGS HOLDINGS CALCIUM TOTAL DRUG 77208 LAB MAX LAB MAX SCREEN 6 YOGESH YOGESH QUANTITAT HOLDINGS HOLDINGS [place] [address] LAB MAX LAB MAX THYROID 6 YOGESH YOGESH STIMULATI HOLDINGS HOLDINGS NG HORMONE TSH LIPOPROTE 44322 A C NANCY IN DIR 6 NANCY FIELDS WHITNEY TERESA HIGH PSC DENSITY CHOLESTER OL TRANSFERA 85020 A C NANCY SE 6 NANCY FIELDS WHITNEY ASPARTATE PSC AMINO AST SGOT TRANSFERA 38075 A C NANCY SE 6 NANCY FIELDS WHITNEY [place] [address] A C NANCY TRIGLYCER 6 NANCY FIELDS WHITNEY IDES PSC BLOOD 59894 A C CRUZ COUNT 6 NANCY FIELDS WHITNEY COMPLETE PSC AUTO&AUTO DIFRNTL WBC CHOLESTER 18851 A C NANCY OL 6 NANCY FIELDS WHITNEY SERUM/WHO PSC LE BLOOD TOTAL GLUCOSE 75632 A C NANCY QUANTITAT 6 NANCY FIELDS WHITNEY BROOKLYNN BLOOD PSC XCPT REAGENT STRIP NONEMERG A0120 FEDERATED FEDERATED TRNSPRT: 6 MINI-BUS [...] ATION SER ATION SER AREA/OTH SYS BASIC 72209 [facility]ST METABOLIC 5 DIAGNOSTI DIAGNOSTI PANEL CS CS CALCIUM TOTAL BLOOD 09900 A C FLORENTINO MARTY COUNT 5 NANCY FIELDS COMPLETE PSC AUTO&[place] [address] QUEST QUEST THYROID 5 DIAGNOSTI DIAGNOSTI STIMULATI CS CS NG HORMONE TSH NONEMERG A0120 FEDERATED FEDERATED TRNSPRT: 5 MINI-BUS TRANSPORT TRANSPORT MTN ATION SER ATION [facility]/OT SYS DIRECT G0154 [facility] SK[facility] AGENCY AGENCY /[facility] E EA 15 MIN NONEMERG A0120 FEDERATED FEDERATED TRNSPRT: 5 MINI-BUS TRANSPORT TRANSPORT MTN [facility] DIRECT G0154 [facility] SKILL 5 [facility] AGENCY AGENCY [facility] E EA 15 MIN NONEMERG A0120 FEDERATED FEDERATED TRNSPRT: 5 MINI-BUS TRANSPORT TRANSPORT MTN [facility] SYS DIRECT G0154 [facility] SKILL 5 [facility] AGENCY AGENCY [facility] E EA 15 MIN DIRECT G0154 [facility] SKILL 5 [facility] AGENCY AGENCY [facility] E EA 15 MIN DIRECT G0154 [facility] SKILL 5 HOME [facility] AGENCY AGENCY [facility] E EA 15 MIN DIRECT G0154 [facility] SKILL 5 HOME [facility] AGENCY AGENCY [facility] E EA 15 MIN DIRECT G0154 [facility] SKILL 5 HOME [facility] AGENCY AGENCY [facility] E EA 15 MIN NONEMERG A0120 FEDERATED FEDERATED TRNSPRT: 5 MINI-BUS TRANSPORT TRANSPORT MTN [facility]OT SYS NONEMERG A0120 FEDERATED FEDERATED TRNSPRT: 5 MINI-BUS TRANSPORT TRANSPORT MTN [facility]OT SYS NONEMERG A0120 FEDERATED FEDERATED TRNSPRT: 5 MINI-BUS TRANSPORT TRANSPORT MTN [facility]OT S[facility] RADIOLOGI 31297 CARLOS Reynoso MEDICAL YAZ EXAMINATI IMAGING ON NECK ASS SOFT TISSUE NONEMERG A0120 FEDERATED FEDERATED TRNSPRT: 5 MINI-BUS TRANSPORT TRANSPORT MTN ATION SER ATION SER AREA/OTH SYS NONEMERG A0120 FEDERATED FEDERATED TRNSPRT: 5 MINI-BUS TRANSPORT TRANSPORT MTN ATION SER ATION SER AREA/OTH SYS NONEMERG A0120 FEDERATED FEDERATED TRNSPRT: 5 MINI-BUS TRANSPORT TRANSPORT MTN ATION SER ATION SER ARE[place] [address] [facility] THYROID 5 DIAGNOSTI DIAGNOSTI STIMULATI CS CS NG HORMONE TSH NONEMERG A0120 FEDERATED FEDERATED TRNSPRT: 5 MINI-BUS TRANSPORT TRANSPORT MTN ATION SER ATION SER AREA/OTH SYS DEBRIDEME 54721 KARRIE YOON NT 5 KERI KERI MASTOIDEC [...] ATION SER JUSTINE ARE[place] [address] [facility] THYROID 4 DIAGNOSTI DIAGNOSTI STIMULATI CS CS NG HORMONE TSH NONEMERG A0120 FEDERATED FEDERATED TRNSPRT: 4 TRANS MINI-BUS TRANSPORT SERVBLUEG MTN ATION SER JUSTINE [place] [address] CAYETANO MONTEIRO XTRNL 4 [facility] AUDITORY INC INC CANAL ANES TYMPANOST 72565 CAYETANO MONTEIRO TAISHA 4 [facility] GENERAL INC INC ANESTHESI A ECG 01637 CAYETANO BRONSON JR ROUTINE 4 [facility] W/LEAST P 12 LDS I&R ONLY LEVEL III 54685 [facility]RITO [facility] 4 [facility] SOLE PATHOLOGY GROSS&TANI ROSCOPIC EXAM ANESTHESI 38299 [facility] A 4 ANESTH SHE EXTERNAL OF THE MIDDLE & BLUE INNER EAR W/BX NOS BASIC 48641 CAYETANO MONTEIRO METABOLIC 4 [facility] PANEL INC INC CALCIUM TOTAL DEBRIDEME 26593 YOONANALILIA YOON NT 4 KERI KERI MASTOIDEC JUANCHO CAVITY CMPLX INJECTION S0077 CAYETANO CAYETANO 4 [facility] CLINDAMYC INC INC IN PHOSPHATE 300 MG BLOOD 36533 CAYETANO MONTEIRO COUNT 4 [facility] COMPLETE INC INC AUTO&AUTO DIFRNTL WBC NONEMERG A0120 FEDERATED FEDERATED TRNSPRT: 4 TRANS MINI-BUS TRANSPORT SERVBLUEG MTN ATION SER JUSTINE AREA/OTH SYS NONEMERG A0120 FEDERATED FEDERATED TRNSPRT: 4 TRANS MINI-BUS TRANSPORT SERVBLUEG MTN ATION SER JUSTINE AREA/OTH SYS DEBRIDEME 81086 KARRIE YOON NT 4 KERI KERI MASTOIDEC JUANCHO CAVITY SIMPLE BLOOD 98273 FLORENTINO MARTY FLORENTINO MARTY COUNT 4 COMPLETE AUTO&AUTO DIFRNTL WBC COMPREHEN 88821 [facility] QUEST SIVE 4 DIAGNOSTI DIAGNOSTI METABOLIC CS CS PANEL NONEMERG A0120 FEDERATED FEDERATED TRNSPRT: 4 TRANS MINI-BUS TRANSPORT SERVBLUEG MTN ATION SER JUSTINE AREA/OTH SYS NONEMERG A0120 FEDERATED FEDERATED TRNSPRT: 4 TRANS MINI-BUS TRANSPORT SERVBLUEG MTN ATION SER JUSTINE AREA/OTH SYS DEBRIDEME 34821 KARRIE YOON NT 4 KERI KERI MASTOIDEC JUANCHO CAVITY SIMPLE ECG 21576 FLORENTINO MARTY FLORENTINO MARTY ROUTINE 4 ECG W/LEAST 12 LDS W/I&R NONEMERG A0120 FEDERATED FEDERATED TRNSPRT: 4 TRANS MINI-BUS TRANSPORT SERVBLUEG MTN ATION SER JUSTINE AREA/OTH SYS NONEMERG A0120 FEDERATED FEDERATED TRNSPRT: 4 TRANS MINI-BUS TRANSPORT SERVBLUEG MTN ATION SER JUSTINE AREA/OTH SYS DEBRIDEME 43474 KARRIE YOON NT 4 KERI KERI MASTOIDEC JUANCHO CAVITY SIMPLE OPHTH 98839 [facility] 4 ANG ANG XM&EVAL COMPRHNSV ESTAB PT 1/> NONEMERG A0120 FEDERATED FEDERATED TRNSPRT: 4 TRANS MINI-BUS TRANSPORT SERVBLUEG MTN ATION SER JUSTINE AREA/OTH SYS NONEMERG A0120 FEDERATED FEDERATED TRNSPRT: 4 MINI-BUS TRANSPORT TRANSPORT MTN ATION SER ATION SER AREA/OTH SYS NONEMERG A0120 FEDERATED FEDERATED TRNSPRT: 4 MINI-BUS TRANSPORT TRANSPORT MTN ATION SER ATION SER AREA/OTH SYS SCREENING G0202 CAYETANO MONTEIRO 4 [facility] MAMMOGRAP INC INC HY KEVIN INCL CAD WHEN PERFORMD COMPUTER 15883 CAYETANO MONTEIRO AIDED 4 [facility] DETECTION INC [place] [address] [facility]ST THYROID 4 DIAGNOSTI DIAGNOSTI STIMULATI CS CS NG HORMONE TSH BLOOD 16682 FLORENTINO MARTY FLORENTINO MARTY COUNT 4 COMPLETE AUTO&AUTO DIFRNTL WBC NONEMERG A0120 FEDERATED FEDERATED TRNSPRT: 4 MINI-BUS [...] ATION SER ATION SER AREA/OTH SYS DEBRIDEME 18233 KARRIE YOON NT 3 KERI KERI MASTOIDEC JUANCHO CAVITY SIMPLE NONEMERG A0120 FEDERATED FEDERATED TRNSPRT: 3 MINI-BUS TRANSPORT TRANSPORT MTN ATION SER ATION SER AREA/OTH SYS NONEMERG A0120 FEDERATED FEDERATED TRNSPRT: 3 MINI-BUS TRANSPORT TRANSPORT MTN ATION SER ATION SER AREA/OTH SYS DEBRIDEME 55668 KARRIE YOON NT 3 KERI KERI MASTOIDEC JUANCHO CAVITY SIMPLE NONEMERG A0120 FEDERATED FEDERATED TRNSPRT: 3 MINI-BUS TRANSPORT TRANSPORT MTN ATION SER ATION SER AREA/OTH SYS NONEMERG A0120 LKLP CAC LKLP CAC TRNSPRT: 3 INC INC MINI-BUS REGION 11 REGION 11 MTN AREA/OTH SYS LIPID 57351 A [place] GOOD MARTY PANEL [address] [place] [address] [facility] THYROID 3 DIAGNOSTI DIAGNOSTI STIMULATI CS CS NG HORMONE TSH COLLECTIO 51828 A [place] FERGUSON N VENOUS 3 NANCY FIELDS BLOOD PSC VENIPUNCT URE BASIC 98461 [facility] QUEST METABOLIC 3 DIAGNOSTI DIAGNOSTI PANEL CS CS CALCIUM TOTAL GLUCOSE 80472 [place] FERGUSON QUANTITAT 3 NANCY FIELDS BROOKLYNN BLOOD PSC XCPT REAGENT STRIP DIRECT G0154 [facility] SKILL 3 [facility] AGENCY AGENCY HH/HOSPIC E EA 15 MIN QUANTITAT 94805 CAYETANO MONTEIRO ION DRUG 3 [facility] NOT INC INC ELSEWHERE SPECIFIED DIRECT G0154 [facility] SKILL 3 [facility] AGENCY AGENCY HH/HOSPIC E EA 15 MIN NONEMERG A0120 LKLP CAC LKLP CAC TRNSPRT: 3 INC INC MINI-BUS REGION 11 REGION 11 MTN AREA/OTH SYS GROUND A0425 [facility] AMBULANCE PER SERVICE SERVICE STATUTE MILE AMBULANCE A0429 [facility] SERVICE 3 AMBULANCE AMBULANCE BLS SERVICE SERVICE EMERGENCY TRANSPORT [facility] 68614 CAYETANO MONTEIRO TISSUE 3 [facility] HEAD & INC [place] [address] CAYETANO CAYETANO FREE 3 [facility] [place] [address] CAYETANO MONTEIRO THYROID 3 [facility] STIMULATI INC INC NG HORMONE TSH URNLS DIP 30904 LATONYA HANKS 3 DON DON STICK/TAB LET RGNT NON-AUTO W/O MICRSCP COMPUTER- 05669 MEM[facility] MEME AIDED 3 YAZ YAZ DETECTION SCREENING MAMMOGRAP HY SCREENING G0202 MEME MEME 3 YAZ YAZ MAMMOGRAP HY KEVIN INCL CAD WHEN PERFORMD LIPID 87597 CAYETANO MONTEIRO PANEL 3 [facility] INC INC DRUG 84187 CAYETANO MONTEIRO SCREEN 3 [facility] QUANTITAT INC INC BROOKLYNN PHENYTOIN TOTAL COMPREHEN 42614 CAYETANO MONTEIRO SIVE 3 [facility] [address] CAYETANOANALILIA AVERYON THYROID 3 [facility] STIMULATI INC INC NG HORMONE TSH NONEMERG A0120 LKLP LKLP TRNSPRT: 3 [facility] COMMUNITY MINI-BUS ACTION ACTION MTN AREA/OTH SYS CYTP 91292 [facility] SLIDES 3 DIAGNOSTI DIAGNOSTI CERV/VAG [...] SET EA 15 MIN DIRECT G0154 ROSA LEE SKILL 2 HOME [facility] AGENCY AGENCY HH/HOSPIC E EA 15 MIN RADEX HIP 97893 [place] [facility] 2 MEDICAL YAZ UNILATERA IMAGING L ASS COMPLETE MINIMUM 2 VIEWS GROUND A0425 [facility] MILEAGE 2 AMBULANCE AMBULANCE PER SERVICE SERVICE STATUTE MILE AMBULANCE A0429 [facility] SERVICE 2 AMBULANCE AMBULANCE BLS SERVICE SERVICE EMERGENCY TRANSPORT RADIOLOGI 02599 [place] [facility] C 2 MEDICAL YAZ EXAMINATI IMAGING ON PELVIS ASS 1/2 VIEWS RADIOLOGI 13668 [place] [facility] C 2 MEDICAL YAZ EXAMINATI IMAGING ON PELVIS ASS 1/2 VIEWS RADEX 83824 [place] [facility] SPINE 2 MEDICAL YAZ LUMBOSACR IMAGING AL ASS MINIMUM 4 VIEWS RADEX HIP 53273 CAYETANO MONTEIRO 2 [facility] UNILATERA INC INC L COMPLETE MINIMUM 2 VIEWS RADEX 18862 [place] [facility] HIPS 2 MEDICAL YAZ BILATERAL IMAGING 2 VIEWS ASS ANTEROPOS T PELVIS NONEMERG A0120 [facility] TRNSPRT: 2 [facility] MINI-BUS ACTION ACTION [facility] AREA/OTH SYS RADEX 44318 HANKS HANKS SHOULDER 2 DON DON COMPLETE MINIMUM 2 VIEWS INCISION 50317 LATONYA HOLGUINS THROMBOSE 2 DON DON D HEMORRHOI D EXTERNAL COMPREHEN 25540 CAYETANO MONTEIRO SIVE 2 [facility] METABOLIC INC INC PANEL NONEMERG A0120 [facility] TRNSPRT: 2 [facility] MINI-BUS ACTION ACTION MNN AREA/OTH SYS NONEMERG A0120 [facility] TRNSPRT: 2 [facility] MINI-BUS ACTION ACTION [facility] AREA/OTH SYS DESTRUCTI 52078 LATONYA HANKS ON 2 DON DON PREMALIGN ANT LESION 1ST NONEMERG A0120 LKLP LKLP TRNSPRT: 2 [facility] MINI-BUS ACTION ACTION MTN AREA/OTH SYS NONEMERG A0120 LKLP LKLP TRNSPRT: 2 [facility] MINI-BUS ACTION ACTION MTN AREA/OTH SYS DRUG 68200 CAYETANO AVERYON SCREEN 2 [facility] QUANTITAT INC INC BROOKLYNN PHENYTOIN TOTAL LIPID 82678 CAYETANO CAYETANO PANEL 2 [facility] INC INC COMPREHEN 61858 CAYETANO AVERYON SIVE 2 [facility] [place] [address] CAYETANO AVERYON THYROID 2 [facility] STIMULATI INC INC NG HORMONE TSH COMPUTER- 18359 [facility] AIDED 2 MEDICAL YAZ DETECTION IMAGING ASS SCREENING MAMMOGRAP HY SCREENING G0202 [place] [address] MEDICAL YAZ MAMMOGRAP IMAGING HY KEVIN ASS [...] HOME HLTH/HOSP ICE EA 15 MIN OPHTH 35195 [facility] ([facility] 2 VISION ANG XM&EVAL COMPRHNSV ESTAB PT 1/> COMPREHEN 39234 CAYETANO AVERYON SIVE 1 [facility] [place] [address] CAYETANO AVERYON THYROID 1 [facility] STIMULATI INC INC NG HORMONE TSH LIPID 59270 CAYETANO CAYETANO PANEL 1 [facility] INC INC DRUG 47597 CAYETANO CAYETANO SCREEN 1 [facility] QUANTITAT INC INC BROOKLYNN PHENYTOIN TOTAL QUANTITAT 19522 CAYETANO MONTEIRO ION DRUG 1 [facility] NOT INC INC ELSEWHERE SPECIFIED COMPREHEN 23451 CAYETANO CAYETANO SIVE 1 [facility] METABOLIC INC INC PANEL BLOOD 24134 CAYETANO MONTEIRO COUNT 1 [facility] COMPLETE INC INC AUTO&AUTO DIFRNTL WBC SELF-CARE 47071 SUPPORT SUPPORT /HOME 1 SOURCE SOURCE MGMT TRAINING EACH 15 MINUTES SELF-CARE 09980 SUPPORT SUPPORT /HOME 1 SOURCE SOURCE MGMT TRAINING EACH 15 MINUTES SELF-CARE 20556 SUPPORT SUPPORT /HOME 1 SOURCE SOURCE MGMT TRAINING EACH 15 MINUTES SELF-CARE 28577 SUPPORT SUPPORT /HOME 1 SOURCE SOURCE MGMT TRAINING EACH 15 MINUTES SELF-CARE 30257 SUPPORT SUPPORT /HOME 1 SOURCE SOURCE MGMT TRAINING EACH 15 MINUTES SELF-CARE 28468 SUPPORT SUPPORT /HOME 1 SOURCE SOURCE MGMT TRAINING EACH 15 MINUTES SELF-CARE 30248 SUPPORT SUPPORT /HOME 1 SOURCE SOURCE MGMT TRAINING EACH 15 MINUTES SELF-CARE 79223 SUPPORT SUPPORT /HOME 1 SOURCE SOURCE MGMT TRAINING EACH 15 MINUTES SELF-CARE 35254 SUPPORT SUPPORT /HOME 1 SOURCE SOURCE MGMT TRAINING EACH 15 MINUTES SELF-CARE 60002 SUPPORT SUPPORT /HOME 1 SOURCE SOURCE MGMT TRAINING EACH 15 MINUTES SELF-CARE 03834 SUPPORT SUPPORT /HOME 1 SOURCE SOURCE MGMT TRAINING EACH 15 MINUTES QUANTITAT 65625 CAYETANO MONTEIRO ION DRUG 1 [facility] NOT INC INC ELSEWHERE SPECIFIED OBSERVATI 14518 FAMILY MULBERRY ON CARE 1 CARE HARRY DISCHARGE ASSOCIATE [facility] G0378 CAYETANO MONTEIRO OBSERVATI 1 [facility] ON INC INC SERVICE PER HOUR BLOOD 67704 CAYETANO MONTEIRO COUNT 1 [facility] COMPLETE INC INC AUTO&AUTO DIFRNTL WBC BASIC 04732 CAYETANO MONTEIRO METABOLIC 1 [facility] PANEL INC INC CALCIUM TOTAL BLOOD 71021 CAYETANO MONTEIRO COUNT 1 [facility] COMPLETE INC INC AUTO&AUTO DIFRNTL WBC URNLS DIP 21959 CAYETANO MONTEIRO 1 [facility] STICK/TAB INC INC LET REAGENT AUTO [facility] G0378 CAYETANO MONTEIRO OBSERVATI 1 [facility] [place] [address] CAYETANO MONTEIRO LIPASE 1 [place] [address] CAYETANO MONTEIRO STREPTOCO 1 [facility] [place] [address] CAYETANO MONTEIRO AMYLASE 1 [facility] INC INC COMPREHEN 73100 CAYETANO MONTEIRO SIVE 1 [facility] METABOLIC INC INC PANEL AMB A0427 [facility] SERVICE 1 AMBULANCE AMBULANCE ALS SERVICE SERVICE EMERGENCY TRANSPORT LEVEL 1 QUANTITAT 10972 CAYETANO MONTEIRO ION DRUG 1 [facility] NOT INC INC ELSEWHERE SPECIFIED INITIAL 34802 FAMILY MULBERRY OBSERVATI 1 CARE HARRY ON ASSOCIATE CARE/DAY S 50 [place] [address] [facility] INFUSION 1 [facility] THERAPY INC [place] [address] [facility] INFUSION 1 [facility] THERAPY/P INC INC ROPHYLAXI S /DX 1ST TO 1 HR GROUND A0425 [facility] MILEAGE 1 AMBULANCE AMBULANCE PER SERVICE SERVICE STATUTE MILE ALS [id number] [facility] ROUTINE 1 AMBULANCE AMBULANCE [place] [address] CA[facility]ET[facility]O CAYETANO INFUSION 1 [facility] THERAPY/P INC INC ROPHYLAXI S /DX 1ST TO 1 [place] [address] CA[facility] AVERYON INFUSION 1 [facility] THERAPY INC [place] [address] [facility] VALENTINE HEAD/BRAI 1 MEDICAL YAZ N W/O IMAGING CONTRAST ASS MATERIAL RADIOLOGI 62071 [facility] VAL[facility] C 1 MEDICAL YAZ EXAMINATI IMAGING ON CHEST ASS SINGLE VIEW FRONTAL BLOOD 70896 CA[facility] MONTEIRO COUNT 1 [facility] COMPLETE INC INC AUTO&AUTO DIFRNTL WBC COMPREHEN 96875 [facility] SIVE 1 [facility] METABOLIC INC INC PANEL CREATINE 59063 CA[facility] MONTEIR[facility] KINASE MB 1 [facility] [place] [id number] CAYETANO [facility]TEIR[facility] AMYLASE 1 [place] [address] CA[facility]ETANO MONTEIRO LIPASE 1 [facility] INC INC CREATINE 70075 CAYETANO MONTEIRO KINASE 1 [facility] TOTAL INC INC 3D [id number] CARLOS STODDARDUTCHER RENDERING 1 MEDICAL YAZ W/INTERP IMAGING & [place]E [place] [id number] CAYETANO MONTEIRO TROPONIN 1 [facility] QUANTITAT INC INC BROOKLYNN COMPREHEN 38899 CAYETANO MONTEIRO SIVE 1 [facility] METABOLIC INC INC PANEL BLOOD 83670 CAYETANO MONTEIRO COUNT 1 [facility] COMPLETE INC INC AUTO&AUTO DIFRNTL WBC QUANTITAT 49006 CAYETANO MONTEIRO ION DRUG 1 [facility] NOT INC INC ELSEWHERE SPECIFIED SELF-CARE 85592 SUPPORT SUPPORT /HOME 1 SOURCE SOURCE MGMT TRAINING EACH 15 MINUTES SELF-CARE 84207 SUPPORT SUPPORT /HOME 1 SOURCE SOURCE MGMT TRAINING EACH 15 MINUTES SELF-CARE 28647 SUPPORT SUPPORT /HOME 1 SOURCE SOURCE MGMT TRAINING EACH 15 MINUTES SELF-CARE 35450 SUPPORT SUPPORT /HOME 1 SOURCE SOURCE MGMT TRAINING EACH 15 MINUTES COMPREHEN 99233 CAYETANO MONTEIRO SIVE 1 [facility] [address] CAYETANO MONTEIRO THYROID 1 [facility] STIMULATI INC INC NG HORMONE TSH BLOOD 61824 CAYETANO CAYETANO COUNT 1 [facility] COMPLETE INC INC AUTO&AUTO DIFRNTL WBC LIPID 51147 CAYET[facility] MONTEIRO PANEL 1 [facility] INC INC DRUG 03921 CAYETANO CAYETANO SCREEN 1 [facility] QUANTITAT INC INC BROOKLYNN PHENYTOIN TOTAL SCREENING G0202 CARLOS STODDARDUTCHER 1 MEDICAL YAZ MAMMOGRAP IMAGING HY KEVIN ASS INCL CAD WHEN PERFORMD COMPUTER- [id number] [facility] [place] STODDARDMEME AIDED 1 MEDICAL YAZ DETECTION IMAGING ASS SCREENING MAMMOGRAP HY DEBRIDEME 26646 KARRIE YOON NT 1 KERI KERI MASTOIDEC JUANCHO CAVITY SIMPLE BLOOD 92615 CA[facility]ET[facility] MONTEIRO COUNT 1 [facility] COMPLETE INC INC AUTO&AUTO DIFRNTL WBC DRUG 44429 CA[facility]ET[facility] MONTEIRO SCREEN 1 [facility] QUANTITAT INC INC BROOKLYNN PHENYTOIN TOTAL BASIC 67963 CAYETANO MONTEIRO METABOLIC 1 [facility] PANEL INC INC CALCIUM TOTAL AMBULANCE A0429 [facility] SERVICE 1 AMBULANCE AMBULANCE BLS SERVICE SERVICE EMERGENCY TRANSPORT GROUND A[facility]25 [facility] [place] [address] CAYETANO MONTEIRO [facility]ROID 1 [facility] STIMULATI INC INC NG HORMONE TSH DRUG 58830 CAYETANO CAYETANO SCREEN 1 [facility] QUANTITAT INC INC BROOKLYNN PHENYTOIN TOTAL SELF-CARE 61663 SUPPORT SUPPORT /HOME 0 SOURCE SOURCE MGMT TRAINING EACH 15 MINUTES SELF-CARE 26364 SUPPORT SUPPORT /HOME 0 SOURCE SOURCE MGMT TRAINING EACH 15 MINUTES SELF-CARE 83880 SUPPORT SUPPORT /HOME 0 SOURCE SOURCE MGMT TRAINING EACH 15 MINUTES SELF-CARE 55051 SUPPORT SUPPORT /HOME 0 SOURCE SOURCE MGMT TRAINING EACH 15 MINUTES SELF-CARE 26631 SUPPORT SUPPORT /HOME 0 SOURCE SOURCE MGMT TRAINING EACH 15 MINUTES DEBRIDEME 83086 YOON YOON NT 0 KERI KERI MASTOIDEC JUANCHO CAVITY SIMPLE SELF-CARE 19879 SUPPORT SUPPORT /HOME 0 SOURCE SOURCE MGMT TRAINING EACH 15 MINUTES SELF-CARE 76515 SUPPORT SUPPORT /HOME 0 SOURCE SOURCE MGMT TRAINING EACH 15 MINUTES SELF-CARE 35655 SUPPORT SUPPORT /HOME 0 SOURCE SOURCE MGMT TRAINING EACH 15 MINUTES SELF-CARE 45940 SUPPORT SUPPORT /HOME 0 SOURCE SOURCE MGMT TRAINING EACH 15 MINUTES SELF-CARE 74517 SUPPORT SUPPORT /HOME 0 SOURCE SOURCE MGMT TRAINING EACH 15 MINUTES BASIC 27499 CAYETANO AVERYON METABOLIC 0 [facility] PANEL INC INC CALCIUM TOTAL 3D 14684 CAYETANO AVERYON RENDERING 0 [facility] W/INTERP INC INC & POSTPROCE SS SUPERVISI ON DRUG 66108 CAYETANO CAYETANO SCREEN 0 [facility] QUANTITAT INC INC BROOKLYNN PHENYTOIN TOTAL BLOOD 43259 CAYETANO MONTEIRO COUNT 0 [facility] COMPLETE INC INC AUTO&[place] [address] CARLOS STODDARDUTCHER HEAD/BRAI 0 MEDICAL YAZ N W/O IMAGING CONTRAST ASS MATERIAL SELF-CARE 16116 SUPPORT SUPPORT /HOME 0 SOURCE SOURCE MGMT TRAINING EACH 15 MINUTES SELF-CARE 53666 SUPPORT SUPPORT /HOME 0 SOURCE SOURCE MGMT TRAINING EACH 15 MINUTES SELF-CARE 19728 SUPPORT SUPPORT /HOME 0 SOURCE SOURCE MGMT TRAINING EACH 15 MINUTES SELF-CARE 36375 SUPPORT SUPPORT /HOME 0 SOURCE SOURCE MGMT TRAINING EACH 15 MINUTES SELF-CARE 60351 SUPPORT SUPPORT /HOME 0 SOURCE SOURCE MGMT TRAINING EACH 15 MINUTES SELF-CARE 31062 SUPPORT SUPPORT /HOME 0 SOURCE SOURCE MGMT TRAINING EACH 15 MINUTES SELF-CARE 43303 SUPPORT SUPPORT /HOME 0 SOURCE SOURCE MGMT TRAINING EACH 15 MINUTES SELF-CARE 65388 SUPPORT SUPPORT /HOME 0 SOURCE SOURCE MGMT TRAINING EACH 15 MINUTES SELF-CARE 10578 SUPPORT SUPPORT /HOME 0 SOURCE SOURCE MGMT TRAINING EACH 15 MINUTES SELF-CARE 35304 SUPPORT SUPPORT /HOME 0 SOURCE SOURCE MGMT TRAINING EACH 15 MINUTES SELF-CARE 19658 SUPPORT SUPPORT /HOME 0 SOURCE SOURCE MGMT TRAINING EACH 15 MINUTES SELF-CARE 60323 SUPPORT SUPPORT /HOME 0 SOURCE SOURCE MGMT TRAINING EACH 15 MINUTES SELF-CARE 88724 SUPPORT SUPPORT /HOME 0 SOURCE SOURCE MGMT TRAINING EACH 15 MINUTES SELF-CARE 28622 SUPPORT SUPPORT /HOME 0 SOURCE SOURCE MGMT TRAINING EACH 15 MINUTES SELF-CARE 56737 SUPPORT SUPPORT /HOME 0 SOURCE SOURCE MGMT TRAINING EACH 15 MINUTES DEBRIDEME 79119 KARRIE YOON NT 0 KERI KERI MASTOIDEC J[place] CAVITY SIMPLE MICROSURG 69696 KARRIE YOON TQS REQ 0 KERI KERI USE OPERATING MICROSCOP E SELF-CARE 90613 SUPPORT SUPPORT /HOME 0 SOURCE SOURCE MGMT TRAINING EACH 15 MINUTES SELF-CARE 37280 SUPPORT SUPPORT /HOME 0 SOURCE SOURCE MGMT TRAINING EACH 15 MINUTES SELF-CARE 61614 SUPPORT SUPPORT /HOME 0 SOURCE SOURCE MGMT TRAINING EACH 15 MINUTES SELF-CARE 75121 SUPPORT SUPPORT /HOME 0 SOURCE SOURCE MGMT TRAINING EACH 15 MINUTES SELF-CARE 33642 SUPPORT SUPPORT /HOME 0 SOURCE SOURCE MGMT TRAINING EACH 15 MINUTES SELF-CARE 73971 SUPPORT SUPPORT /HOME 0 SOURCE SOURCE MGMT TRAINING EACH 15 MINUTES SELF-CARE 61867 SUPPORT SUPPORT /HOME 0 SOURCE SOURCE MGMT TRAINING EACH 15 MINUTES SELF-CARE 24984 SUPPORT SUPPORT /HOME 0 SOURCE SOURCE MGMT TRAINING EACH 15 [place] [address] CAYETANO MONTEIRO THYROID 0 [facility] STIMULATI INC INC NG HORMONE TSH DRUG 95837 CAYETANO MONTEIRO SCREEN 0 [facility] QUANTITAT INC INC BROOKLYNN PHENYTOIN TOTAL SELF-CARE 05772 SUPPORT SUPPORT /HOME 0 SOURCE SOURCE MGMT TRAINING EACH 15 MINUTES SELF-CARE 96613 SUPPORT SUPPORT /HOME 0 SOURCE SOURCE MGMT TRAINING EACH 15 MINUTES SELF-CARE 19209 SUPPORT SUPPORT /HOME 0 SOURCE SOURCE MGMT TRAINING EACH 15 MINUTES SELF-CARE 88200 SUPPORT SUPPORT /HOME 0 SOURCE SOURCE MGMT TRAINING EACH 15 MINUTES SELF-CARE 73957 SUPPORT SUPPORT /HOME 0 SOURCE SOURCE MGMT TRAINING EACH 15 MINUTES SELF-CARE 39463 SUPPORT SUPPORT /HOME 0 SOURCE SOURCE MGMT TRAINING EACH 15 MINUTES SELF-CARE 83345 SUPPORT SUPPORT /HOME 0 SOURCE SOURCE MGMT TRAINING EACH 15 MINUTES SELF-CARE 89610 SUPPORT SUPPORT /HOME 0 SOURCE SOURCE MGMT TRAINING EACH 15 MINUTES SELF-CARE 66993 SUPPORT SUPPORT /HOME 0 SOURCE SOURCE MGMT TRAINING EACH 15 MINUTES SELF-CARE 78295 SUPPORT SUPPORT /HOME 0 SOURCE SOURCE MGMT TRAINING EACH 15 MINUTES SELF-CARE 93967 SUPPORT SUPPORT /HOME 0 SOURCE SOURCE MGMT TRAINING EACH 15 MINUTES SELF-CARE 74834 SUPPORT SUPPORT /HOME 0 SOURCE SOURCE MGMT TRAINING EACH 15 MINUTES SELF-CARE 01070 SUPPORT SUPPORT /HOME 0 SOURCE SOURCE MGMT TRAINING EACH 15 MINUTES SELF-CARE 58672 SUPPORT SUPPORT /HOME 0 SOURCE SOURCE MGMT TRAINING EACH 15 MINUTES SELF-CARE 96010 SUPPORT SUPPORT /HOME 0 SOURCE SOURCE MGMT TRAINING EACH 15 MINUTES SELF-CARE 64925 SUPPORT SUPPORT /HOME 0 SOURCE SOURCE MGMT TRAINING EACH 15 MINUTES SELF-CARE 71109 SUPPORT SUPPORT /HOME 0 SOURCE SOURCE MGMT TRAINING EACH 15 MINUTES DRUG 83556 CA[facility] BROOKLYNN PHENYTOIN TOTAL GROUND A0425 [facility] MILEAGE 0 AMBULANCE AMBULANCE PER SERVICE SERVICE STATUTE [place] AMBULANCE A0429 [facility] SERVICE 0 AMBULANCE AMBULANCE BLS SERVICE SERVICE EMERGENCY TRANSPORT SELF-CARE 31778 SUPPORT SUPPORT /HOME 0 SOURCE SOURCE MGMT TRAINING EACH 15 MINUTES SELF-CARE 40806 SUPPORT SUPPORT /HOME 0 SOURCE SOURCE MGMT TRAINING EACH 15 MINUTES SELF-CARE 82232 SUPPORT SUPPORT /HOME 0 SOURCE SOURCE MGMT TRAINING EACH 15 MINUTES SELF-CARE 73720 SUPPORT SUPPORT /HOME 0 SOURCE SOURCE MGMT TRAINING EACH 15 MINUTES SELF-CARE 58220 SUPPORT SUPPORT /HOME 0 SOURCE SOURCE MGMT TRAINING EACH 15 MINUTES SELF-CARE 72777 SUPPORT SUPPORT /HOME 0 SOURCE SOURCE MGMT TRAINING EACH 15 MINUTES SELF-CARE 79193 SUPPORT SUPPORT /HOME 0 SOURCE SOURCE MGMT TRAINING EACH 15 MINUTES SELF-CARE 84863 SUPPORT SUPPORT /HOME 0 SOURCE SOURCE MGMT TRAINING EACH 15 MINUTES SELF-CARE 29886 SUPPORT SUPPORT /HOME 0 SOURCE SOURCE MGMT TRAINING EACH 15 MINUTES SELF-CARE 98591 SUPPORT SUPPORT /HOME 0 SOURCE SOURCE MGMT TRAINING EACH 15 MINUTES SELF-CARE 93223 SUPPORT SUPPORT /HOME 0 SOURCE SOURCE MGMT TRAINING EACH 15 MINUTES SELF-CARE 24383 SUPPORT SUPPORT /HOME 0 SOURCE SOURCE MGMT TRAINING EACH 15 MINUTES SELF-CARE 16583 SUPPORT SUPPORT /HOME 0 SOURCE SOURCE MGMT TRAINING EACH 15 MINUTES SELF-CARE 99805 SUPPORT SUPPORT /HOME 0 SOURCE SOURCE MGMT TRAINING EACH 15 MINUTES SELF-CARE 42237 SUPPORT SUPPORT /HOME 0 SOURCE SOURCE MGMT TRAINING EACH 15 MINUTES SELF-CARE 20659 SUPPORT SUPPORT /HOME 0 SOURCE SOURCE MGMT TRAINING EACH 15 MINUTES SELF-CARE 51554 SUPPORT SUPPORT /HOME 0 SOURCE SOURCE MGMT TRAINING EACH 15 MINUTES SELF-CARE 07995 SUPPORT SUPPORT /HOME 0 SOURCE SOURCE MGMT TRAINING EACH 15 MINUTES SELF-CARE 64564 SUPPORT SUPPORT /HOME 0 SOURCE SOURCE MGMT TRAINING EACH 15 MINUTES SELF-CARE 37219 SUPPORT SUPPORT /HOME 0 SOURCE SOURCE MGMT TRAINING EACH 15 MINUTES SELF-CARE 06234 SUPPORT SUPPORT /HOME 0 SOURCE SOURCE MGMT TRAINING EACH 15 MINUTES SELF-CARE 16440 SUPPORT SUPPORT /HOME 0 SOURCE SOURCE MGMT TRAINING EACH 15 MINUTES SELF-CARE 98396 SUPPORT SUPPORT /HOME 0 SOURCE SOURCE MGMT TRAINING EACH 15 MINUTES SELF-CARE 01765 SUPPORT SUPPORT /HOME 0 SOURCE SOURCE MGMT TRAINING EACH 15 MINUTES SELF-CARE 64539 SUPPORT SUPPORT /HOME 0 SOURCE SOURCE MGMT TRAINING EACH 15 MINUTES SELF-CARE 23493 SUPPORT SUPPORT /HOME 0 SOURCE SOURCE MGMT TRAINING EACH 15 MINUTES SELF-CARE 04362 SUPPORT SUPPORT /HOME 0 SOURCE SOURCE MGMT TRAINING EACH 15 MINUTES SELF-CARE 84906 SUPPORT SUPPORT /HOME 0 SOURCE SOURCE MGMT TRAINING EACH 15 MINUTES SELF-CARE 65789 SUPPORT SUPPORT /HOME 0 SOURCE SOURCE MGMT TRAINING EACH 15 MINUTES SELF-CARE 28483 SUPPORT SUPPORT /HOME 0 SOURCE SOURCE MGMT TRAINING EACH 15 MINUTES SELF-CARE 33464 SUPPORT SUPPORT /HOME 0 SOURCE SOURCE MGMT TRAINING EACH 15 MINUTES SELF-CARE 41954 SUPPORT SUPPORT /HOME 0 SOURCE SOURCE MGMT TRAINING EACH 15 MINUTES SELF-CARE 78869 SUPPORT SUPPORT /HOME 0 SOURCE SOURCE MGMT TRAINING EACH 15 MINUTES SELF-CARE 06149 SUPPORT SUPPORT /HOME 0 SOURCE SOURCE MGMT TRAINING EACH 15 MINUTES SELF-CARE 65933 SUPPORT SUPPORT /HOME 0 SOURCE SOURCE MGMT TRAINING EACH 15 MINUTES SELF-CARE 07310 SUPPORT SUPPORT /HOME 0 SOURCE SOURCE MGMT TRAINING EACH 15 MINUTES SELF-CARE 82898 SUPPORT SUPPORT /HOME 0 SOURCE SOURCE MGMT TRAINING EACH 15 MINUTES SELF-CARE 74430 SUPPORT SUPPORT /HOME 0 SOURCE SOURCE MGMT TRAINING EACH 15 MINUTES DRUG 73648 CAYETANO MONTEIRO SCREEN 0 [facility] QUANTITAT INC INC BROOKLYNN PHENYTOIN TOTAL SELF-CARE 88369 SUPPORT SUPPORT /HOME 0 SOURCE SOURCE MGMT TRAINING EACH 15 MINUTES BLOOD 37334 CAYETANO MONTEIRO COUNT 0 [facility] COMPLETE INC INC AUTO&[place] [address] CAYETANO MONTEIRO THYROID 0 [facility] STIMULATI INC INC NG HORMONE TSH COMPREHEN 82096 CAYETANO MONTEIRO SIVE 0 [facility] METABOLIC INC INC PANEL SELF-CARE 32121 SUPPORT SUPPORT /HOME 0 SOURCE SOURCE MGMT TRAINING EACH 15 MINUTES SELF-CARE 65535 SUPPORT SUPPORT /HOME 0 SOURCE SOURCE MGMT TRAINING EACH 15 MINUTES SELF-CARE 01652 SUPPORT SUPPORT /HOME 0 SOURCE SOURCE MGMT TRAINING EACH 15 MINUTES DEBRIDEME 87677 KARRIE YOON, NT 0 KRISTI G KRISTI G MASTOIDEC JUANCHO CAVITY SIMPLE SELF-CARE 70497 SUPPORT SUPPORT /HOME 0 SOURCE SOURCE MGMT TRAINING EACH 15 MINUTES SELF-CARE 69693 SUPPORT SUPPORT /HOME 0 SOURCE SOURCE MGMT TRAINING EACH 15 MINUTES SELF-CARE 16597 SUPPORT SUPPORT /HOME 0 SOURCE SOURCE MGMT TRAINING EACH 15 MINUTES SELF-CARE 30264 SUPPORT SUPPORT /HOME 0 SOURCE SOURCE MGMT TRAINING EACH 15 MINUTES SELF-CARE 70105 SUPPORT SUPPORT /HOME 0 SOURCE SOURCE MGMT TRAINING EACH 15 MINUTES SELF-CARE 14243 SUPPORT SUPPORT /HOME 0 SOURCE SOURCE MGMT TRAINING EACH 15 MINUTES SELF-CARE 66645 SUPPORT SUPPORT /HOME 0 SOURCE SOURCE MGMT TRAINING EACH 15 MINUTES SELF-CARE 78478 SUPPORT SUPPORT /HOME 0 SOURCE SOURCE MGMT TRAINING EACH 15 MINUTES SELF-CARE 44791 SUPPORT SUPPORT /HOME 0 SOURCE SOURCE MGMT TRAINING EACH 15 MINUTES SELF-CARE 45564 SUPPORT SUPPORT /HOME 0 SOURCE SOURCE MGMT TRAINING EACH 15 MINUTES SELF-CARE 34210 SUPPORT SUPPORT /HOME 0 SOURCE SOURCE MGMT TRAINING EACH 15 MINUTES SELF-CARE 88768 SUPPORT SUPPORT /HOME 0 SOURCE SOURCE MGMT TRAINING EACH 15 MINUTES SELF-CARE 43442 SUPPORT SUPPORT /HOME 0 SOURCE SOURCE MGMT TRAINING EACH 15 MINUTES SELF-CARE 26630 SUPPORT SUPPORT /HOME 0 SOURCE SOURCE MGMT TRAINING EACH 15 MINUTES SELF-CARE 10790 SUPPORT SUPPORT /HOME 0 SOURCE SOURCE MGMT TRAINING EACH 15 MINUTES SELF-CARE 03049 SUPPORT SUPPORT /HOME 0 SOURCE SOURCE MGMT TRAINING EACH 15 MINUTES SELF-CARE 84864 SUPPORT SUPPORT /HOME 0 SOURCE SOURCE MGMT TRAINING EACH 15 MINUTES SELF-CARE 16951 SUPPORT SUPPORT /HOME 0 SOURCE SOURCE MGMT TRAINING EACH 15 MINUTES SELF-CARE 22218 SUPPORT SUPPORT /HOME 0 SOURCE SOURCE MGMT TRAINING EACH 15 MINUTES SELF-CARE 15294 SUPPORT SUPPORT /HOME 0 SOURCE SOURCE MGMT TRAINING EACH 15 MINUTES SELF-CARE 23315 SUPPORT SUPPORT /HOME 0 SOURCE SOURCE MGMT TRAINING EACH 15 MINUTES [facility] [address] GERMAIN HOWARD, MEDICAL 0 VISION MARIET[place] A XM&ANGEAL COMPRHNSV ESTAB PT 1/> SELF-CARE 44614 SUPPORT SUPPORT /HOME 0 SOURCE SOURCE MGMT TRAINING EACH 15 MINUTES SELF-CARE 26578 SUPPORT SUPPORT /HOME 0 SOURCE SOURCE MGMT TRAINING EACH 15 MINUTES SELF-CARE 89946 SUPPORT SUPPORT /HOME 0 SOURCE SOURCE MGMT TRAINING EACH 15 MINUTES SELF-CARE 59245 SUPPORT SUPPORT /HOME 0 SOURCE SOURCE MGMT TRAINING EACH 15 MINUTES SELF-CARE 65740 SUPPORT SUPPORT /HOME 0 SOURCE SOURCE MGMT TRAINING EACH 15 MINUTES SELF-CARE 21530 SUPPORT SUPPORT /HOME 0 SOURCE SOURCE MGMT TRAINING EACH 15 MINUTES SELF-CARE 83118 SUPPORT SUPPORT /HOME 0 SOURCE SOURCE MGMT TRAINING EACH 15 MINUTES SELF-CARE 56240 SUPPORT SUPPORT /HOME 0 SOURCE SOURCE MGMT TRAINING EACH 15 MINUTES SELF-CARE 17108 SUPPORT SUPPORT /HOME 0 SOURCE SOURCE MGMT TRAINING EACH 15 MINUTES SELF-CARE 55903 SUPPORT SUPPORT /HOME 0 SOURCE SOURCE MGMT TRAINING EACH 15 MINUTES SELF-CARE 98499 SUPPORT SUPPORT /HOME 0 SOURCE SOURCE MGMT TRAINING EACH 15 MINUTES SELF-CARE 40028 SUPPORT SUPPORT /HOME 0 SOURCE SOURCE MGMT TRAINING EACH 15 MINUTES COMPRE 51647 KARRIE YOON, AUDIOMETR 0 KRISTI Akhtar Y THRESHOLD EVAL SP RECOGNIJ TYMPANOME 33837 KARRIE YOON, TRY 0 KRISTI BERRY G SELF-CARE 04330 SUPPORT SUPPORT /HOME 0 SOURCE SOURCE MGMT TRAINING EACH 15 MINUTES SELF-CARE 29939 SUPPORT SUPPORT /HOME 0 SOURCE SOURCE MGMT TRAINING EACH 15 MINUTES SELF-CARE 49728 SUPPORT SUPPORT /HOME 0 SOURCE SOURCE MGMT TRAINING EACH 15 MINUTES SELF-CARE 33582 SUPPORT SUPPORT /HOME 0 SOURCE SOURCE MGMT TRAINING EACH 15 MINUTES SELF-CARE 55960 SUPPORT SUPPORT /HOME 0 SOURCE SOURCE MGMT TRAINING EACH 15 MINUTES SELF-CARE 95667 SUPPORT SUPPORT /HOME 0 SOURCE SOURCE MGMT TRAINING EACH 15 MINUTES SELF-CARE 23719 SUPPORT SUPPORT /HOME 0 SOURCE SOURCE MGMT TRAINING EACH 15 [place] [address] CAYETANO MONTEIRO [facility]ROID 0 [facility] STIMULATI [place] [address] CAYETANO MONTEIRO FREE 0 [facility] THYROXINE INC INC BLOOD 59533 CAYETANO MONTEIRO COUNT 0 [facility] COMPLETE INC INC AUTO&AUTO DIFRNTL WBC SELF-CARE 31932 SUPPORT SUPPORT /HOME 0 SOURCE SOURCE MGMT TRAINING EACH 15 MINUTES SELF-CARE 87757 SUPPORT SUPPORT /HOME 0 SOURCE SOURCE MGMT TRAINING EACH 15 MINUTES SELF-CARE 06148 SUPPORT SUPPORT /HOME 0 SOURCE SOURCE MGMT TRAINING EACH 15 MINUTES SELF-CARE 48781 SUPPORT SUPPORT /HOME 0 SOURCE SOURCE MGMT TRAINING EACH 15 MINUTES SELF-CARE 25138 SUPPORT SUPPORT /HOME 0 SOURCE SOURCE MGMT TRAINING EACH 15 MINUTES SELF-CARE 03037 SUPPORT SUPPORT /HOME 0 SOURCE SOURCE MGMT TRAINING EACH 15 MINUTES SELF-CARE 18008 SUPPORT SUPPORT /HOME 0 SOURCE SOURCE MGMT TRAINING EACH 15 MINUTES SELF-CARE 42869 SUPPORT SUPPORT /HOME 0 SOURCE SOURCE MGMT TRAINING EACH 15 MINUTES SELF-CARE 91253 SUPPORT SUPPORT /HOME 0 SOURCE SOURCE MGMT TRAINING EACH 15 MINUTES 3D 98809 CARLOS VALENTINE, RENDERING 0 MEDICAL STEPHANI IMAGING W/INTERP& ASSOCIATE POSTPROC S DIFF WORK STATION CT ORBIT 24440 CARLOS VALENTINE, SELLA/POS 0 MEDICAL STEPHANI T IMAGING FOSSA/EAR ASSOCIATE W/[place] [address] CARLOS VALENTINE, MAXILLOFA 0 MEDICAL STEPHANI CIAL W/O IMAGING CONTRAST ASSOCIATE MATERIAL S SELF-CARE 71158 SUPPORT SUPPORT /HOME 0 SOURCE SOURCE MGMT TRAINING EACH 15 MINUTES SELF-CARE 78636 SUPPORT SUPPORT /HOME 0 SOURCE SOURCE MGMT TRAINING EACH 15 MINUTES SELF-CARE 02686 SUPPORT SUPPORT /HOME 0 SOURCE SOURCE MGMT TRAINING EACH 15 MINUTES SELF-CARE 36396 SUPPORT SUPPORT /HOME 0 SOURCE SOURCE MGMT TRAINING EACH 15 MINUTES SELF-CARE 05797 SUPPORT SUPPORT /HOME 0 SOURCE SOURCE MGMT TRAINING EACH 15 MINUTES SELF-CARE 09870 SUPPORT SUPPORT /HOME 0 SOURCE SOURCE MGMT TRAINING EACH 15 MINUTES SELF-CARE 33535 SUPPORT SUPPORT /HOME 0 SOURCE SOURCE MGMT TRAINING EACH 15 MINUTES SELF-CARE 64399 SUPPORT SUPPORT /HOME 0 SOURCE SOURCE MGMT TRAINING EACH 15 MINUTES SELF-CARE 21191 SUPPORT SUPPORT /HOME 0 SOURCE SOURCE MGMT TRAINING EACH 15 MINUTES SELF-CARE 61976 SUPPORT SUPPORT /HOME 0 SOURCE SOURCE MGMT TRAINING EACH 15 MINUTES SELF-CARE 40390 SUPPORT SUPPORT /HOME 0 SOURCE SOURCE MGMT TRAINING EACH 15 MINUTES SELF-CARE 19282 SUPPORT SUPPORT /HOME 0 SOURCE SOURCE MGMT TRAINING EACH 15 MINUTES SELF-CARE 80124 SUPPORT SUPPORT /HOME 0 SOURCE SOURCE MGMT TRAINING EACH 15 MINUTES SELF-CARE 29982 SUPPORT SUPPORT /HOME 0 SOURCE SOURCE MGMT TRAINING EACH 15 MINUTES SCREENING 67254 CARLOS EASONCHER, 0 MEDICAL STEPHANI MAMMOGRAP IMAGING HY ASSOCIATE BILATERAL S COMPUTER- 59492 CARLOS MEME, AIDED 0 MEDICAL STEPHANI DETECTION IMAGING ASSOCIATE SCREENING S MAMMOGRAP HY CYTP 63298 [facility] [place] CERV/VAG MNL SCRN PHYSICIAN SUPV BLOOD 77859 HANKS, HANKS, OCCULT 0 DON R DON R PEROXIDAS E ACTV QUAL FECES 1 DETER SELF-CARE 27438 SUPPORT SUPPORT /HOME 0 SOURCE SOURCE MGMT TRAINING EACH 15 MINUTES SELF-CARE 30891 SUPPORT SUPPORT /HOME 0 SOURCE SOURCE MGMT TRAINING EACH 15 MINUTES SELF-CARE 37590 SUPPORT SUPPORT /HOME 0 SOURCE SOURCE MGMT TRAINING EACH 15 MINUTES SELF-CARE 33399 SUPPORT SUPPORT /HOME 0 SOURCE SOURCE MGMT TRAINING EACH 15 MINUTES SELF-CARE 37860 SUPPORT SUPPORT /HOME 0 SOURCE SOURCE MGMT TRAINING EACH 15 MINUTES SELF-CARE 14308 SUPPORT SUPPORT /HOME 0 SOURCE SOURCE MGMT TRAINING EACH 15 MINUTES SELF-CARE 57911 SUPPORT SUPPORT /HOME 0 SOURCE SOURCE MGMT TRAINING EACH 15 MINUTES SELF-CARE 13626 SUPPORT SUPPORT /HOME 0 SOURCE SOURCE MGMT TRAINING EACH 15 MINUTES SELF-CARE 39343 SUPPORT SUPPORT /HOME 0 SOURCE SOURCE MGMT TRAINING EACH 15 MINUTES SELF-CARE 68185 SUPPORT SUPPORT /HOME 0 SOURCE SOURCE MGMT TRAINING EACH 15 MINUTES SELF-CARE 66424 SUPPORT SUPPORT /HOME 0 SOURCE SOURCE MGMT TRAINING EACH 15 MINUTES SELF-CARE 55685 SUPPORT SUPPORT /HOME 0 SOURCE SOURCE MGMT TRAINING EACH 15 MINUTES SELF-CARE 46748 SUPPORT SUPPORT /HOME 0 SOURCE SOURCE MGMT TRAINING EACH 15 MINUTES SELF-CARE 73062 SUPPORT SUPPORT /HOME 0 SOURCE SOURCE MGMT TRAINING EACH 15 MINUTES SELF-CARE 33418 SUPPORT SUPPORT /HOME 0 SOURCE SOURCE MGMT TRAINING EACH 15 MINUTES SELF-CARE 26442 SUPPORT SUPPORT /HOME 0 SOURCE SOURCE MGMT TRAINING EACH 15 MINUTES SELF-CARE 16211 SUPPORT SUPPORT /HOME 0 SOURCE SOURCE MGMT TRAINING EACH 15 MINUTES [facility] E0601 DEBORAH CABRERA S 0 HOME MED HOME MED POSITIVE EQUIP. EQUIP. [facility] PRESSURE DEVICE SELF-CARE 04609 SUPPORT SUPPORT /HOME 0 SOURCE SOURCE MGMT TRAINING EACH 15 MINUTES SELF-CARE 59674 SUPPORT SUPPORT /HOME 0 SOURCE SOURCE MGMT TRAINING EACH 15 MINUTES SELF-CARE 93835 SUPPORT SUPPORT /HOME 0 SOURCE SOURCE MGMT TRAINING EACH 15 MINUTES DRUG 69593 CAYETANO MONTEIRO SCREEN 0 [facility] QUANTITAT INC [place] [address] CAYETANO MONTEIRO THYROID 0 [facility] STIMULATI INC INC NG HORMONE TSH SUSCEPTIB 02561 CAYETANO MONTEIRO LTY STDY 0 [facility] ANTIMICRB INC INC IAL MICRO/AGA R DILUTJ URNLS DIP 74309 CAYETANO MONTEIRO 0 [facility] STICK/TAB INC INC LET REAGENT AUTO MICROSCOP Y BLOOD 77349 CAYETANO MONTEIRO COUNT 0 [facility] COMPLETE INC INC AUTO&AUTO DIFRNTL WBC CULTURE 04172 CAYETANO MONTEIRO BACTERIAL 0 [facility] INC INC QUANTTATI VE COLONY COUNT URINE CULTURE 47818 CAYETANO MONTEIRO BCT 0 [facility] ISOL&PRSM INC INC PTV ID ISOLATE EA URINE BASIC 02037 CAYETANO MONTEIRO METABOLIC 0 [facility] PANEL INC INC CALCIUM TOTAL DRUG 79950 CAYETANO MONTEIRO SCREEN 0 [facility] QUANTITAT INC INC BROOKLYNN PHENYTOIN TOTAL AMB A0422 [facility] OXYGEN&O2 0 AMBULANCE AMBULANCE SUPPLIES SERVICE SERVICE LIFE SUSTAININ G SITUATION AMB A0427 [facility] SERVICE 0 AMBULANCE AMBULANCE ALS SERVICE SERVICE EMERGENCY TRANSPORT LEVEL 1 GROUND A0425 [facility] MILEAGE 0 AMBULANCE AMBULANCE PER SERVICE SERVICE STATUTE MILE MANUAL 01858 CAYETANO MONTEIRO THERAPY 0 [facility] TQS 1/> INC INC REGIONS EACH 15 MINUTES THERAPEUT 87973 CAYETANO MONTEIRO IC PX 1/> 0 [facility] AREAS INC INC EACH 15 MIN EXERCISES THERAPEUT 03864 CAYETANO MONTEIRO IC PX 1/> 0 [facility] AREAS INC INC EACH 15 MIN EXERCISES MANUAL 67672 CAYETANO MONTEIRO THERAPY 0 [facility] TQS 1/> INC INC REGIONS EACH 15 MINUTES APPLICATI 84474 CAYETANO MONTEIRO ON 0 [facility] MODALITY INC INC 1/> AREAS HOT/COLD PACKS APPLICATI 27736 CAYETANO MONTEIRO ON 0 [facility] MODALITY INC INC 1/> AREAS HOT/COLD PACKS MANUAL 30346 CAYETANO MONTEIRO THERAPY 0 [facility] TQS 1/> INC INC REGIONS EACH 15 MINUTES THERAPEUT 44318 CAYETANO MONTEIRO IC PX 1/> 0 [facility] AREAS INC INC EACH 15 MIN EXERCISES THERAPEUT 27738 CAYETANO MONTEIRO IC PX 1/> 0 [facility] AREAS INC INC EACH 15 MIN EXERCISES APPLICATI 25151 CAYETANO MONTEIRO ON 0 [facility] MODALITY INC INC 1/> AREAS HOT/COLD PACKS MANUAL 92518 CAYETANO MONTEIRO THERAPY 0 [facility] TQS 1/> INC INC REGIONS EACH 15 MINUTES MANUAL 35782 CAYETANO MONTEIRO THERAPY 0 [facility] TQS 1/> INC INC REGIONS EACH 15 MINUTES APPLICATI 06571 CAYETANO MONTEIRO ON 0 [facility] MODALITY INC INC 1/> AREAS HOT/COLD PACKS THERAPEUT 06874 CAYETANO MONTEIRO IC PX 1/> 0 [facility] AREAS INC INC EACH 15 MIN EXERCISES NASL A7034 DEBORAH CABRERA INTRFCE 0 HOME MED HOME MED POS [facility] EQUIP. EQUIP. 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 EQUIP. E [facility] PRESSURE DEVICE CONTINUOU E0601 DEBORAH CABRERA S 0 HOME MED HOME MED POSITIVE EQUIP. EQUIP. [facility] PRESSURE DEVICE FILTER A7038 DEBORAH CABRERA DISPBL 0 HOME MED HOME MED USED EQUIP. EQUIP. W/POS [facility] PRESSURE DEVICE FILTER A7039 DEBORAH CABRERA NON 0 HOME MED HOME MED DISPBL EQUIP. EQUIP. USED [facility] W/POS [place] PRESS DEVICE TUBING A7037 DEBORAH CHEUNGRELL USED WITH 0 HOME MED HOME MED POSITIVE EQUIP. EQUIP. AIRWAY [facility] PRESSURE DEVICE MANUAL 36651 CAYETANO MONTEIRO THERAPY 0 [facility] TQS 1/> INC INC REGIONS EACH 15 MINUTES THERAPEUT 82104 CAYETANO MONTEIRO IC PX 1/> 0 [facility] AREAS INC INC EACH 15 MIN EXERCISES APPLICATI 11867 CAYETANO MONTEIRO ON 0 [facility] MODALITY INC INC 1/> AREAS HOT/COLD PACKS APPLICATI 04322 CAYETANO MONTEIRO ON 0 [facility] MODALITY INC INC 1/> AREAS HOT/COLD PACKS MEDICAL 11923 CAYETANO MONTEIRO NUTRITION 0 [facility] CENTER ASSMT&IVN TJ INDIV EACH 15 AR THERAPEUT 87190 CAYETANO MONTEIRO IC PX 1/> 0 [facility] AREAS INC INC EACH 15 MIN EXERCISES APPL 30243 CAYETANO MONTEIRO MODALITY 0 [facility] 1/> AREAS INC INC ELEC STIMJ UNATTENDE D MANUAL 16671 CAYETANO MONTEIRO THERAPY 0 [facility] TQS 1/> INC INC REGIONS EACH 15 MINUTES RADEX 60447 [facility], WRIST 2 0 [facility] MANUAL 18612 CAYETANO MONTEIRO THERAPY 0 [facility] TQS 1/> INC INC REGIONS EACH 15 MINUTES THERAPEUT 17738 CAYETANO MONTEIRO IC PX 1/> 0 [facility] AREAS INC INC EACH 15 MIN EXERCISES APPLICATI 37454 CAYETANO MONTEIRO ON 0 [facility] MODALITY INC INC 1/> AREAS HOT/COLD PACKS APPLICATI 21577 CAYETANO MONTEIRO ON 0 [facility] MODALITY INC INC 1/> AREAS HOT/COLD PACKS PHYSICAL 79480 CAYETANO MONTEIRO THERAPY 0 [facility] RE-EVALUA INC INC TION THERAPEUT 29065 CAYETANO MONTEIRO IC PX 1/> 0 [facility] AREAS INC INC EACH 15 MIN EXERCISES APPL 17210 CAYETANO MONTEIRO MODALITY 0 [facility] 1/> AREAS INC INC PARAFFIN BATH MANUAL 93935 CAYETANO MONTEIRO THERAPY 0 [facility] TQS 1/> INC INC REGIONS EACH 15 MINUTES MANUAL 41654 CAYETANO CAYETANO THERAPY 0 [facility] TQS 1/> INC INC REGIONS EACH 15 MINUTES APPL 01666 CAYETANO MONTEIRO MODALITY 0 [facility] 1/> AREAS INC INC PARAFFIN BATH THERAPEUT 69517 CAYETANO CAYETANO IC PX 1/> 0 [facility] AREAS INC INC EACH 15 MIN EXERCISES THERAPEUT 13818 CAYETANO MONTEIRO IC PX 1/> 9 [facility] AREAS INC INC EACH 15 MIN EXERCISES APPL 14478 CAYETANO MONTEIRO MODALITY 9 [facility] 1/> AREAS INC INC PARAFFIN BATH APPL 88417 CAYETANO MONTEIRO MODALITY 9 [facility] 1/> AREAS INC INC ELEC STIMJ UNATTENDE D APPLICATI 86533 CAYETANO MONTEIRO ON 9 [facility] MODALITY INC INC 1/> AREAS HOT/COLD PACKS MANUAL 07424 CAYETANO MONTEIRO THERAPY 9 [facility] TQS 1/> INC INC REGIONS EACH 15 MINUTES MANUAL 55260 [facility]AP[facility] 9 [facility] TQS 1/> INC INC REGIONS EACH 15 MINUTES APPLICATI 96474 [facility] ON 9 [facility] MODALITY INC INC 1/> AREAS HOT/COLD PACKS THERAPEUT 67211 [facility] MONTEIRO IC PX 1/> 9 [facility] AREAS INC INC EACH 15 MIN EXERCISES APPL 46896 [facility] MODALITY 9 [facility] 1/> AREAS INC INC ELEC STIMJ UNATTENDE D POLYSOM 09781 [facility] 6/>YRS 9 [facility] SLEEP 4/> INC INC ADDL SHAUN ATTND APPL 99684 [facility] MODALITY 9 [facility] 1/> AREAS INC INC ELEC STIMJ UNATTENDE D THERAPEUT 90441 [facility] MONTE[facility]O IC PX 1/> 9 [facility] AREAS INC INC EACH 15 MIN EXERCISES APPLICATI 18446 [facility] ON 9 [facility] MODALITY INC INC 1/> AREAS HOT/COLD PACKS MANUAL 26134 CAEYTANO [facility]APY 9 [facility] TQS 1/> INC INC REGIONS EACH 15 MINUTES APPL 95996 [facility] MODALITY 9 [facility] 1/> AREAS INC INC VASOPNEUM ATIC DEVICES APPL 35405 [facility] MODALITY 9 [facility] 1/> AREAS INC INC ELEC STIMJ UNATTENDE D THERAPEUT 73127 [facility] MONTEIRO IC PX 1/> 9 [facility] AREAS INC INC EACH 15 MIN EXERCISES PHYSICAL 36550 [facility] EVALUATIO INC INC N DEBRIDEME 43982 KARRIE YOON, NT 9 KRISTI Akhtar MASTOIDEC JUANCHO CAVITY SIMPLE BINOCULAR 42143 KARRIE YOON, 9 KRISTI Akhtar MICROSCOP Y SEPARATE DX PROCEDURE WRIST L3908 TRACY TRACY HAND 9 YOAV CASON MD ORTHOSIS PSC PSC EXT CONTROL COCK-UP PREFAB RADEX 50549 CA[facility] AVERYON WRIST 2 9 [facility] VIEWS INC INC LIPID 30904 COMBINED COMBINED PANEL 9 PHYSICIAN PHYSICIAN S LAB S LAB COMPREHEN 06426 COMBINED COMBINED SIVE 9 PHYSICIAN PHYSICIAN METABOLIC S LAB S LAB PANEL BLOOD 53652 COMBINED COMBINED COUNT 9 PHYSICIAN PHYSICIAN COMPLETE S LAB S LAB AUTO&[place] [address] COMBINED COMBINED THYROID 9 PHYSICIAN PHYSICIAN STIMULATI S LAB S LAB NG HORMONE TSH LIPID 07247 COMBINED COMBINED PANEL 9 PHYSICIAN PHYSICIAN S LAB S LAB DRUG 37409 COMBINED COMBINED SCREEN 9 PHYSICIAN PHYSICIAN QUANTITAT S LAB S LAB BROOKLYNN PHENYTOIN TOTAL RADEX 88779 [facility] WRIST 2 9 [facility] VIEWS INC INC RADEX 27827 HANKS, HANKS, ANKLE 9 DON R DON R COMPLETE MINIMUM 3 VIEWS RADEX 15482 ELPIDIO BRAR 2 9 MEDICAL ZHAO P VIEWS IMAGING ASSOCIATE S APPLICATI 88593 BOWEN WISEMAN, ON CAST 9 TRACY TRACY ELBOW FINGER SHORT ARM RADEX 58394 CARLOS CEJA, WRIST 2 9 MEDICAL ZHAO P VIEWS IMAGING ASSOCIATE S RADEX 74638 [facility] WRIST 2 9 [place] [address] [facility] INFUSION 9 [facility] THERAPY/P INC INC ROPHYLAXI S /DX 1ST TO 1 HR CLOS RDUC 7902 [facility] FRACTURE 9 [facility] INC INC RADIUS&UL NA WITHOUT INTRL FIX ANES 59702 [facility] VITAL, RADIUS 9 ANESTH MELLISA L ULNA OF THE WRIST/VINAY [place] D BONES CLOSED PX BLOOD 44535 [facility] COUNT 9 [facility] COMPLETE INC INC AUTO&AUTO DIFRNTL WBC CLTX DSTL 37241 BOWEN WISEMAN, RDL 9 TRACY TRACY FX/EPIPHY [place] SE[place] [address] [facility] INFUSION 9 [facility] THERAPY INC INC PROPHYLAX IS/DX EA HOUR RADEX 63084 [facility] HAND 9 MEDICAL STEPHANI MINIMUM 3 IMAGING VIEWS ASSOCIATE S DRUG 32082 COMBINED COMBINED SCREEN 9 PHYSICIAN PHYSICIAN QUANTITAT S LAB S LAB [place] [address] COMBINED COMBINED THYROID 9 PHYSICIAN PHYSICIAN STIMULATI [place] [address] [facility] THYROID 9 [facility] STIMULATI INC INC NG HORMONE TSH 3D 40219 [facility] BRENNA, RENDERING 9 MEDICAL ZHAO P W/INTERP IMAGING & ASSOCIATE POSTPROCE S SS SUPERVISI ON COMPREHEN 03827 [facility] SIVE 9 [facility] METABOLIC INC INC PANEL BLOOD 24043 [facility] COUNT 9 [facility] COMPLETE INC INC AUTO&AUTO DIFRNTL WBC DRUG 27366 [facility] SCREEN 9 [facility] QUANTITAT INC INC BROOKLYNN PHENYTOIN TOTAL ECG 26245 [facility] ROUTINE 9 [facility] ECG INC INC W/LEAST 12 LDS TRCG ONLY W/O I&[place] [address] [facility] MON[facility] HEAD/BRAI 9 [facility] N W/O INC INC CONTRAST MATERIAL RHYTHM 71789 [facility] MONTEIR[facility] ECG 1-3 9 [facility] LEADS INC INC TRACING ONLY W/O I&R ECG 59074 CAYETANO ANANDAMIE ROUTINE 9 [facility] ROB F W/LEAST PROF SERV 12 LDS I&R ONLY AMBULANCE A0429 [facility] SERVICE 9 AMBULANCE AMBULANCE BLS SERVICE SERVICE EMERGENCY TRANSPORT GROUND A0425 [facility] MILEAGE 9 AMBULANCE AMBULANCE PER SERVICE SERVICE STATUTE MILE OPH 31081 GERMAIN MAGANA, MEDICAL 9 VISION SG M XM&EVAL COMPRHNSV ESTAB PT 1/> DRUG 63405 COMBINED COMBINED SCREEN 9 PHYSICIAN PHYSICIAN QUANTITAT S LAB S LAB BROOKLYNN PHENYTOIN TOTAL LIPID 52843 COMBINED COMBINED PANEL 9 PHYSICIAN PHYSICIAN S LAB S LAB GLUCOSE 43801 COMBINED COMBINED TOLERANCE 9 PHYSICIAN PHYSICIAN TEST GTT S LAB S LAB 3 [place] [address] COMBINED COMBINED THYROID 9 PHYSICIAN PHYSICIAN STIMULATI S [place] [address] COMBINED COMBINED THYROID 9 PHYSICIAN PHYSICIAN STIMULATI S LAB S LAB NG HORMONE TSH DRUG 97001 COMBINED COMBINED SCREEN 9 PHYSICIAN PHYSICIAN QUANTITAT S LAB S LAB BROOK[place] PHENYTOIN TOTAL DEBRIDEME 37899 KARRIE YOON, NT 8 KRISTI Akhtar MASTOIDEC JUANCHO CAVITY SIMPLE DRUG 66574 COMBINED COMBINED SCREEN 8 PHYSICIAN PHYSICIAN QUANTITAT S LAB S [place] [address] COMBINED COMBINED THYROID 8 PHYSICIAN PHYSICIAN STIMULATI S LAB S LAB NG HORMONE TSH MICROSURG 09770 KARRIE YOON, CATHERINES REQ 8 KRISTI Akhtar USE OPERATING MICROSCOP E MICROSURG 86843 KARRIE YOON, CATHERINES REQ 8 KRISTI Akhtar USE OPERATING MICROSCOP E DEBRIDEME 47884 KARRIE YOON, NT 8 KRISTI Akhtar MASTOIDEC JUANCHO CAVITY SIMPLE DRUG 26199 COMBINED COMBINED SCREEN 8 PHYSICIAN PHYSICIAN QUANTITAT S LAB S LAB BROOKLYNN PHENYTOIN TOTAL GENERAL 97540 COMBINED COMBINED HEALTH 8 PHYSICIAN PHYSICIAN PANEL S LAB S LAB COMPUTER- 58393 [facility] VALENTINE, AIDED 8 MEDICAL STEPHANI DETECTION IMAGING ASSOCIATE SCREENING S MAMMOGRAP HY SCREENING 82028 [place] [facility], 8 MEDICAL STEPHANI MAMMOGRAP IMAGING HY ASSOCIATE BILATERAL S DUP-SCAN 34582 [place] [facility], XTR VEINS 8 MEDICAL STEPHANI IMAGING UNILATERA ASSOCIATE L/LIMITED S STUDY DUPLEX 48756 [place] BRENNA, SCAN 8 MEDICAL ZHAO P EXTRACRAN IMAGING IAL ART ASSOCIATE COMPL BI S STUDY DRUG 80918 [facility] SCREEN 8 [facility] QUANTITAT INC INC BROOK[place]NN PHENYTOIN TOTAL LIPID 56576 [facility] PANEL 8 [facility] INC INC COMPREHEN 09742 CA[facility] SIVE 8 [facility] [address] [facility] THYROID 8 [facility] STIMULATI INC INC NG HORMONE TSH BLOOD 93814 [facility] COUNT 8 [facility] COMPLETE INC INC AUTO&AUTO DIFRNTL WBC RADIOLOGI 51369 LATONYA HANKS C EXAM 8 DON R DON R PELVIS COMPL MINIMUM 3 VIEWS RADIOLOGI 31759 LATONYA HANKS C EXAM 8 DON R DON R PELVIS COMPL MINIMUM 3 VIEWS COMMODE E0163 DEBORAH CABRERA CHAIR 8 HOME MED HOME MED MOBILE OR EQUIP. EQUIP. [facility] STATIONAR Y W/FIXED ARMS DRUG 22394 [facility] SCREEN 8 MED LAB MED LAB QUANTITAT [place]NN PHENYTOIN TOTAL SBSQ 07953 LATONYA HANKS NURSING 8 DON R DON R FACILITY CARE/DAY E/M STABLE 10 MIN DRUG 91633 [facility] 8 MED LAB MED LAB QUANTITAT [place] PHENYTOIN [facility] 62136 [facility] 8 DON R DON R DAY MANAGEMEN T 30 MIN/< [place] [address] AMY AMESMONT 1/> AREAS 8 HEALTHCAR HEALTHCAR EA 15 E E MIN GAIT TRAINJ W/STAIR THERAPEUT 46488 AMY DIAZT ACTVITY 8 HEALTHCAR HEALTHCAR DIRECT PT E E CONTACT EACH 15 MIN SELF-CARE 12862 AMY DIAZT /HOME 8 HEALTHCAR HEALTHCAR MGMT E E TRAINING EACH 15 MINUTES PHYSICAL 52699 EMILYT [place] THERAPY 8 HEALTHCAR HEALTHCAR EVALUATIO E E N OCCUPATIO 79801 AMY AMESMONT NAL 8 HEALTHCAR HEALTHCAR THERAPY E E EVALUATIO N THERAPEUT 20911 AMY DIAZT IC PX 1/> 8 HEALTHCAR HEALTHCAR AREAS E E EACH [place] [address] EMILYT [place] /> AREAS 8 HEALTHCAR HEALTHCAR EACH 15 E E MIN NEUROMUSC REEDUCA GROUND A0425 [facility] 8 AMBULANCE AMBULANCE PER SERVICE SERVICE STATUTE MILE SBSQ 04186 [facility] 8 DON R DON R CARE/DAY 25 MINUTES SBSQ 82747 [facility] 8 DON R DON R CARE/DAY 25 MINUTES SBSQ 36714 [facility] 8 DON R DON R CARE/DAY 25 MINUTES RADEX HIP 24926 [place] Anabel CEJA UNILATERA IMAGING L ASSOCIATE COMPLETE S MINIMUM 2 VIEWS INITIAL 69924 [facility] 8 DON R DON R CARE/DAY [address] LOWER 25840 [place] BRENNA EXTREMITY 8 ALLAN Pardo W/O IMAGING CONTRAST ASSOCIATE MATERIAL S 3D 70038 [place] BRENNA RENDERING 8 ALLAN Pardo IMAGING W/INTERP& ASSOCIATE POSTPROC S DIFF WORK STATION RADEX 37741 [facility] CE[facility] SPINE 8 MEDICAL ZHAO P LUMBOSACR IMAGING AL ASSOCIATE MINIMUM 4 S VIEWS RADEX 59060 [facility] CEJA, SACRUM & 8 MEDICAL ZHAO P COCCYX IMAGING MINIMUM 2 ASSOCIATE VIEWS S RADIOLOGI 26933 [facility] CE[facility] C 8 MEDICAL ZHAO P EXAMINATI IMAGING ON PELVIS ASSOCIATE 1/2 S VIEWS RADIOLOGI 82031 [place] ROBERTO, C 8 CALISTA S EXAMINATI RADIOLOGY ON PELVIS 1/2 ASSOCIATE VIEWS S PSC AMBULANCE A0429 [facility] SERVICE 8 CINTH[place] CINTH[facility] BLS EMERGENCY AMBULANCE AMBULANCE TRANSPORT GROUND A0425 [facility] MILEAGE 8 [place]INTH[place] CINTHIA CO PER STATUTE AMBULANCE AMBULANCE MILE RADEX HIP 83026 [facility] 8 CALISTA S UNILATERA RADIOLOGY L COMPLETE ASSOCIATE MINIMUM 2 S PSC VIEWS DEBRIDEME 54958 KARRIE YOON NT 8 KRISTI Akhtar MASTOIDEC JUANCHO CAVITY CMPLX ANESTHESI 40968 Maxine SULLIVAN 8 ANESTH FAUSTO A EXTERNAL OF THE MIDDLE & BLUEGRASS INNER EAR W/BX NOS LEVEL III 95984 PATHOLOGY PATHOLOGY SURG 8 & & PATHOLOGY CYTOLOGY CYTOLOGY LAB LAB GROSS&TANI ROSCOPIC EXAM MICROSURG 49210 KARRIE YOON TQS REQ 8 KRISTI Akhtar USE OPERATING MICROSCOP E MICROSURG 90739 KARRIE YOON TQS REQ 8 KRISTI Akhtar USE OPERATING MICROSCOP E DEBRIDEME 71619 KARRIE YOON NT 8 KRISTI Akhtar MASTOIDEC JUANCHO CAVITY SIMPLE Encounters Encounter Start End Date Code Location Performer Type Date OFFICE 39599 Maxine [facility] OUTPATIEN 7 7 NANCY FIELDS T VISIT PSC 15 MINUTES OFFICE 65912 [facility] YOON OUTPATIEN 7 7 PHYSICIAN T VISIT S GROUP 15 MINUTES OFFICE 98445 [facility] YOON OUTPATIEN 7 7 PHYSICIAN T VISIT S GROUP 15 MINUTES OFFICE 83335 [facility] YOON OUTPATIEN 7 7 PHYSICIAN T VISIT S GROUP 15 MINUTES OFFICE 00240 A C KILPELA OUTPATIEN 7 7 NANCY FIELDS T VISIT PSC 15 MINUTES OFFICE 81606 A C KILPELA OUTPATIEN 7 7 NANCY FIELDS T VISIT PSC 15 MINUTES OFFICE 54204 [facility] YOON OUTPATIEN 7 7 PHYSICIAN T VISIT S GROUP 15 MINUTES EMERGENCY 62585 [facility] ALEJANDRO 7 7 PHYSICIAN DEPARTMEN S, PLLC T VISIT HIGH/URGE NT SEVERITY EMERGENCY 49353 [facility] 7 7 [facility] DEPARTMEN INC T VISIT MODERATE SEVERITY HOSPITAL [facility] - 7 7 [facility] OUTPATIEN INC T OFFICE 98887 A C KILPELA OUTPATIEN 7 7 NANCY FIELDS T VISIT PSC 15 MINUTES OFFICE 18822 A C KILPELA OUTPATIEN 7 7 NANCY FIELDS T VISIT PSC 15 MINUTES HOSPITAL [facility] - 7 7 [facility] OUTPATIEN INC T OFFICE 05190 [facility] RONDA CONSULTAT 7 7 PHYSICIAN ION S GROUP NEW/ESTAB PATIENT 40 MIN OFFICE 25368 A C KILPELA OUTPATIEN 6 6 NANCY FIELDS T VISIT PSC 15 MINUTES OFFICE 28290 [facility] YOON OUTPATIEN 6 6 PHYSICIAN KERI T VISIT S GROUP 10 MINUTES HOSPITAL [facility] - 6 6 [facility] OUTPATIEN INC [facility] - 6 6 [facility] OUTPATIEN INC T HOSPITAL [facility] - 6 6 [facility] OUTPATIEN INC T OFFICE 01941 [facility] YOON OUTPATIEN 6 6 PHYSICIAN KERI T VISIT S GROUP 15 MINUTES HOSPITAL [facility] - 6 6 [facility] OUTPATIEN INC [facility]PITAL [facility] - 6 6 [facility] OUTPATIEN INC T OFFICE 83760 [facility] YOON OUTPATIEN 6 6 PHYSICIAN KERI T VISIT S GROUP 10 MINUTES HOSPITAL [facility] - 6 6 [facility] OUTPATIEN INC T OFFICE 46158 A C KILPELA OUTPATIEN 6 6 NANCY FIELDS JEA T VISIT PSC 25 MINUTES OFFICE 71935 A C FLORENTINO MARTY OUTPATIEN 6 6 NANCY FIELDS T VISIT PSC 15 MINUTES HOSPITAL [facility] - 6 6 [facility] OUTPATIEN INC T OFFICE 27470 [facility] YOON OUTPATIEN 6 6 PHYSICIAN KERI T VISIT S GROUP 15 MINUTES PERIODIC 91054 A C KILPELA PREVENTIV 6 6 NANCY FIELDS JEA E MED EST PSC PATIENT 40-64YRS OFFICE 60562 [facility] YOON OUTPATIEN 6 6 PHYSICIAN KERI T VISIT S GROUP 15 MINUTES OFFICE 73521 A C CRUZ OUTPATIEN 6 6 NANCY FIELDS WHITNEY T VISIT PSC 15 MINUTES OFFICE 48594 A C TALIBLA OUTPATIEN 6 6 NANCY FIELDS JEMaxine T VISIT PSC 15 MINUTES OFFICE 64693 [facility] YOON OUTPATIEN 6 6 PHYSICIAN KERI T VISIT S GROUP 15 MINUTES OFFICE 46901 [place] [facility] OUTPATIEN 5 5 NANCY FIELDS T VISIT PSC 25 MINUTES OFFICE 54091 [place] [facility] OUTPATIEN 5 5 NANCY FIELDS T VISIT PSC 15 MINUTES HOME [facility], 5 5 HOME INPATIENT HEALTH AGENCY HOME [facility], 5 5 HOME INPATIENT HEALTH AGENCY OFFICE 95178 [place] [facility] OUTPATIEN 5 5 NANCY FIELDS T VISIT PSC 15 MINUTES OFFICE 09617 [place] [facility] OUTPATIEN 5 5 NANCY FIELDS T VISIT PSC 15 MINUTES OFFICE 27416 [facility] YOON OUTPATIEN 5 5 PHYSICIAN KERI T VISIT S GROUP 15 MINUTES EMERGENCY 54521 [facility] 5 5 PHYSICIAN [facility] MODERATE SEVERITY EMERGENCY 21657 [facility] 5 5 [facility] DEPARTMEN INC T VISIT LOW/MODER SEVERITY HOSPITAL [facility] - 5 5 [facility] OUTPATIEN INC T OFFICE 07011 [facility] YOON OUTPATIEN 5 5 PHYSICIAN KERI T NEW 30 S GROUP MINUTES OFFICE 06681 [place] [facility] OUTPATIEN 5 5 NANCY FIELDS T VISIT PSC 25 MINUTES OFFICE 07166 [place] [facility] OUTPATIEN 5 5 NANCY FIELDS T VISIT PSC 15 MINUTES OFFICE 45060 [place] [facility] OUTPATIEN 5 5 NANCY FIELDS T VISIT PSC 15 MINUTES OFFICE 90402 [place] [facility] OUTPATIEN 4 4 NANCY FIELDS T VISIT PSC 15 MINUTES OFFICE 77141 Y[facility] YOON OUTPATIEN 4 4 KERI KERI T VISIT 15 MINUTES HOSPITAL [facility] - 4 4 [facility] OUTPATIEN INC T OFFICE 81124 [facility] YOON OUTPATIEN 4 4 KERI KERI T VISIT 15 MINUTES OFFICE 35423 [place] SANTAMARIAES MARTY OUTPATIEN 4 4 T VISIT 15 MINUTES OFFICE 71096 [place] [facility] MUNOZES MARTY OUTPATIEN 4 4 T VISIT 25 MINUTES OFFICE 88042 [place] MARTY [place] [facility] OUTPATIEN 4 4 T VISIT 15 MINUTES HOSPITAL [facility] - 4 4 [facility] OUTPATIEN INC T OFFICE 29861 [place] MARTY [place] [facility]ART[facility] OUTPATIEN 4 4 T VISIT 25 MINUTES OFFICE 44137 KARRIE YOON OUTPATIEN 4 4 KERI KERI T VISIT 15 MINUTES OFFICE 91051 FLORENTINOOBEY SANTAMARIAES MARTY OUTPATIEN 4 4 T VISIT 15 MINUTES OFFICE 62655 FLORENTINOOBEY FERGUSON [place] MARTY OUTPATIEN 3 3 T VISIT 10 MINUTES OFFICE 38196 FLORENTINOOBEY FIELDS MARTY OUTPATIEN 3 3 T VISIT 15 MINUTES OFFICE 94455 A C [place] MARTY OUTPATIEN 3 3 NANCY FIELDS T VISIT PSC 15 MINUTES OFFICE 64430 A C [place] MARTY OUTPATIEN 3 3 NANCY FIELDS T VISIT PSC 15 MINUTES OFFICE 08063 A C DUGLASPELA OUTPATIEN 3 3 NANCY JUAREZ T VISIT PSC 15 MINUTES [facility] - 3 3 [facility] OUTPATIEN INC T HOME [facility] 45846 A C KILPELA OUTPATIEN 3 3 NANCY FIELDS JEMaxine T NEW 30 PSC MINUTES OFFICE 51128 LATONYA HANKS OUTPATIEN 3 3 DON DON T VISIT 15 MINUTES OFFICE 40645 KARRIE LIMON OUTPATIEN 3 3 KERI KERI T VISIT 15 MINUTES Emergency DEVYN [place] Ang (ER) 3 14:58 3 15:34 [facility] - 3 3 [facility] OUTPATIEN INC T EMERGENCY 07925 STEFFANY ANG 3 3 III [facility] DEPARTMEN T VISIT HIGH/URGE NT SEVERITY EMERGENCY 47870 [facility] 3 3 [facility] DEPARTMEN INC T VISIT LOW/MODER SEVERITY HOSPITAL [facility] - 3 3 [facility] OUTPATIEN INC T OFFICE 36543 KARRIE YOON OUTPATIEN 3 3 KERI KERI T VISIT 10 MINUTES OFFICE 44385 LATONYA HANKS OUTPATIEN 3 3 DON DON T VISIT 15 MINUTES HOSPITAL [facility] - 3 3 [facility] INC T HOSPITAL [facility] - 3 3 [facility]PATIEN [facility] T PERIODIC 82616 LATONYA HOLGUINS PREVENTIV 3 3 DON DON E MED EST PATIENT 40-64YRS OFFICE 74238 KARRIE YOON OUTPATIEN 3 3 KERI KERI T VISIT 25 MINUTES HOME [facility], 3 3 HOME OUTPATIEN HEALTH T AGENCY [facility] EMERGENCY 02606 [facility] 2 2 [facility] T VISIT LOW/MODER SEVERITY EMERGENCY 93193 STEFFANY ANG 2 2 III ADDIS III [facility] T VISIT HIGH/URGE NT SEVERITY HOSPITAL [facility] - 2 2 [facility] OUTPATIEN [facility] OFFICE 23945 LATONYA HOLGUINS OUTPATIEN 2 2 DON DON T VISIT 25 MINUTES EMERGENCY 09022 [facility] 2 2 [facility] T VISIT LOW/MODER SEVERITY EMERGENCY 40094 NAHOMY COREA 2 2 [facility] T VISIT HIGH/URGE NT SEVERITY HOSPITAL [facility] - 2 2 [facility] OUTPATIEN [facility] OFFICE 09397 LATONYA SHEAHENS OUTPATIEN 2 2 DON DON T VISIT 25 MINUTES OFFICE 04244 [facility] OUTPATIEN 2 2 DON DON T VISIT 25 MINUTES HOSPITAL [facility] - 2 2 [facility] OFFICE 95370 [facility]ANKS OUTPATIEN 2 2 DON DON T VISIT 25 MINUTES OFFICE 30520 [facility] OUTPATIEN 2 2 DON DON T VISIT 15 MINUTES HOSPITAL [facility] - 2 2 [facility] OUTPATIEN INC T [facility] [place] - 2 2 [facility] OUTPATIEN INC T OFFICE 96674 [facility] H[facility]KS OUTPATIEN 2 2 DON DON T VISIT 15 MINUTES HOME [facility]SES HE[facility], 2 2 [facility] OUTPATIEN & HOME HE T [facility], 2 2 [facility] OUTPATIEN & HOME HE T OFFICE 38582 [facility] OUTPATIEN 2 2 DON DON T VISIT 15 MINUTES OFFICE 58657 [facility] OUTPATIEN 1 1 DON DON T VISIT 15 MINUTES [facility] - 1 1 [facility] INC T OFFICE 63781 [place] [facility] 1 1 [facility] 25 PSC MINUTES HOSPITAL [facility] - 1 1 [facility] OUTPATIEN INC T OFFICE 41250 [facility] OUTPATIEN 1 1 DON DON T VISIT 15 MINUTES OFFICE 13989 [facility] OUTPATIEN 1 1 DON DON T VISIT 15 MINUTES OFFICE 50790 [place] OUT[facility]IEN 1 1 [facility] 25 PSC MINUTES HOSPITAL [facility] - 1 1 [facility] OUTPATIEN INC T OFFICE 70764 [facility] OUTPATIEN 1 1 DON DON T VISIT 15 MINUTES EMERGENCY 02536 PEDRITO HERNANDEZ DEPT 1 1 EMERGENCY VISIT SERVICES HIGH SEVERITY& THREAT [facility] [place] - 1 1 [facility] OUTPATIEN [facility] T EMERGENCY 61438 [facility] 1 1 [facility] T VISIT HIGH/URGE NT SEVERITY OFFICE 01896 KARRIE YOON OUTPATIEN 1 1 KERI KERI T VISIT 15 MINUTES EMERGENCY 60494 [facility] 1 1 [facility] T VISIT HIGH/URGE NT SEVERITY EMERGENCY 99577 PEDRITO ANG DEPT 1 1 EMERGENCY III ADDIS VISIT SERVICES HIGH SEVERITY& THREAT [facility] - 1 1 [facility]PITAL [place] - 1 1 [facility] OUTPAT[facility]EN [facility] T OFFICE 87730 LATONYA HANKS OUTPATIEN 1 1 DON DON T VISIT 15 MINUTES HOSPITAL [place] - 1 1 [facility] OFFICE [id number] [place] [facility] 1 1 [facility] NEW/ESTAB PSC PATIENT 60 MIN [facility] [place] [facility] 1 1 [facility] OUTPATIEN [facility] T OFFICE 07390 [place] HOLGUINS OUTPATIEN 1 1 DON DON T VISIT 15 MINUTES [facility] [place] [facility] 1 [facility] T EMERGENCY 96119 PEDRITO COREA DEPT 1 1 EMERGENCY TANI VISIT SERVICES HIGH SEVERITY& THREAT [facility] EMERGENCY 39348 [place] 1 1 [facility] T VISIT HIGH/URGE NT SEVERITY [facility] [place] [facility] 1 [facility]EN [facility] T EMERGENCY 78530 [place] 0 0 [facility] LOW/MODER SEVERITY OFFICE 75055 HANKS HANKS OUTPATIEN 0 0 DON DON T VISIT 15 MINUTES EMERGENCY [id number] PEDRITO SALDANA BAB DEPT 0 0 EMERGENCY VISIT SERVICES HIGH SEVERITY& THREAT FUN [facility] [place] [facility] T OFFICE 50232 [facility] MARTINES OUTPATIEN 0 0 RUPERT RUPERT T NEW 45 MINUTES OFFICE 82196 [place] SHEAHENS OUTPATIEN 0 0 DON DON T VISIT 15 MINUTES OFFICE 27349 YOONANALILIA YOON OUTPATIEN 0 0 KERI KERI T VISIT 15 MINUTES [facility] [place] [facility] T OFFICE 22175 HANKS HANKS OUTPATIEN 0 0 DON DON T VISIT 15 MINUTES OFFICE 05756 KARRIE YOON OUTPATIEN 0 0 KERI KERI T VISIT 10 MINUTES OFFICE 96221 HANKS HANKS OUTPATIEN 0 0 DON DON T VISIT 15 MINUTES [facility] [place] [facility] T EMERGENCY 18749 [place] 0 [facility] DEPART[facility] T VISIT HIGH/URGE NT SEVERITY OFFICE 82689 HANKS HANKS OUTPATIEN 0 0 DON DON T VISIT 15 MINUTES [facility] [place] [facility] INC T OFFICE 84431 HANKS, HANKS, OUTPATIEN 0 0 DON R DON R T VISIT 15 MINUTES OFFICE 51656 KARRIE YOON OUTPATIEN 0 0 KRISTI G KRISTI G T VISIT 15 MINUTES [facility] [place] [facility] [place] [facility] INC T OFFICE 74577 KARRIE YOON OUTPATIEN 0 0 KRISTI Akhtar T VISIT 15 MINUTES [facility] [place] [facility] T PERIODIC 38055 [place] HANKS PREVENTIV 0 0 DON R DON R E MED EST PATIENT [id number] OFFICE 05005 CONRAD MARTINES OUTPATIEN 0 0 , EDWIN FAUSTOEDWIN T VISIT W W 15 MINUTES OFFICE 10307 [place] HANKS OUTPATIEN 0 0 DON R DON R T VISIT 15 MINUTES [facility] [place] [facility] T EMERGENCY 22855 [place] 0 0 [facility] T VISIT HIGH/URGE NT SEVERITY [facility] [place] [facility] T OFFICE 10280 [place] HANKS OUTPATIEN 0 0 DON R DON R T VISIT 15 MINUTES [facility] [place] [facility] OFFICE 53323 BOWEN WISEMAN OUTPATIEN 0 0 TRACY TRACY T VISIT 15 MINUTES [facility] [place] [facility] [place] [facility] [place] [facility] T [facility] [place] [facility] 9 9 [facility]PATIEN [facility] T [facility] [place] [facility] 9 [facility] OUT[facility] INC T OFFICE 46849 [place] HANKS OUTPATIEN 9 9 DON R DON R T VISIT 15 MINUTES OFFICE 04960 BOWEN WISEMAN OUTPATIEN 9 9 TRACY TRACY T VISIT 15 MINUTES OFFICE 52113 BOWEN WISEMAN OUTPATIEN 9 9 TRACY TRACY T VISIT 15 MINUTES OFFICE 77494 [place] HANKS OUTPATIEN 9 9 DON R DON R T VISIT 15 MINUTES OFFICE 81273 [place] HANKS OUTPATIEN 9 9 DON R DON R T VISIT 15 MINUTES [facility] [place] [facility] [place] [facility] INC T OFFICE 93520 [place] HANKS OUTPATIEN 9 9 DON R DON R T VISIT 15 MINUTES [facility] [place] [facility] [place] [facility] [place] [facility] T OFFICE 18798 BOWEN WISEMAN OUTPATIEN 9 9 TRACY TRACY T NEW 45 MINUTES [facility] [place] [facility] 9 9 [facility] INC T EMERGENCY 87112 PEDRITO [place], 9 9 [facility] T VISIT MODERATE ASSOCIATE SEVERITY S OFFICE 30208 [place] HANKS OUTPATIEN 9 9 DON R DON R T VISIT 15 MINUTES OFFICE [id number] [facility] OUTPATIEN 9 9 DON R DON R T VISIT 15 MINUTES EMERGENCY [id number] [facility] 9 [facility] HIGH SEVERITY& THREAT FUN [facility] - 9 9 [facility] T HOME [id number] FAMILY VISIT EST 9 9 HOME PT HEALTH MOD-HI CARE INC SEVERITY 40 MINUTES HOME FAMILY HEALTH, 9 9 HOME OUTPATIEN HEALTH T CARE INC HOME [id number] FAMILY VISIT EST 9 9 HOME PT HEALTH MOD-HI CARE INC SEVERITY 40 MINUTES HOME FAMILY HEALTH, 9 9 HOME OUTPATIEN HEALTH T CARE INC HOME FAMILY HEALTH, 9 9 HOME OUTPATIEN HEALTH T CARE INC HOME [id number] FAMILY VISIT EST 9 9 HOME PT HEALTH MOD-HI CARE INC SEVERITY 40 MINUTES OFFICE [id number] LATON[facility] HANKS OUTPATIEN 9 9 DON R DON R T VISIT 15 MINUTES OFFICE [id number] [facility] OUTPATIEN 8 8 DON R DON R T VISIT 15 MINUTES [facility] 8 8 [facility] T OFFICE 68824 [facility] HANKS OUTPATIEN 8 8 DON R DON R T VISIT 15 MINUTES EMERGENCY 94630 CLARY SALDANA, 8 8 [facility] DEPARTMEN CORPORATI O T VISIT ON MODERATE SEVERITY EMERGENCY 73103 [facility] 8 8 [facility] DEPART[facility] INC T VISIT LOW/MODER SEVERITY [facility] - 8 8 [facility] T [facility] - 8 8 [facility] - [facility] 8 [facility] T OFFICE [id number] LATONYA HANKS OUTPATIEN 8 8 DON R DON R T VISIT 15 MINUTES OFFICE [id number] [facility] HANKS OUTPATIEN 8 8 DON R DON R T VISIT 15 MINUTES OFFICE 13093 [facility] HANKS OUTPATIEN 8 8 DON R DON R T VISIT 15 MINUTES OFFICE 27111 LATON[facility] HANKS OUTPATIEN 8 8 DON R DON R T VISIT 15 MINUTES HOME [facility], 8 8 HOME [facility] T AGENCY SPECIAL [facility] 8 8 [facility] OFFICE [id number] KARRIE YOON OUTPATIEN 8 8 KRISTI Akhtar T VISIT 15 MINUTES SPECIAL [facility] 8 8 [facility] [place] - 8 8 [facility] OFFICE [id number] KARRIE YOON OUTPATIEN 8 8 KRISTI Fraga VISIT 15 MINUTES
--- OUTSIDE RECORDS SUMMARY | 2017-04-07 20:57 | External Medical Summary Rpt | CCD ---
Author Author , ALVA Organization ALVA Address Unknown Phone [email or web address] Care Team Providers Care Production Line Worker Name Role Phone A Angeles CRUZ MD PSC, A Unavailable Unavailable Angeles CRUZ MD PSC RADHA GARCIA Unavailable Unavailable [facility] Unavailable Unavailable SERVICE, [facility] Unavailable Unavailable SERVICE, [facility]available Unavailable SERVICE, [facility] TRACY WISEMAN, Unavailable Unavailable TRACY WISEMAN [facility] Unavailable Unavailable LAB, [facility] MEME VALENTINE Unavailable Unavailable MEME YAZ, Unavailable Unavailable MEME YAZ STEPHANI VALENTINE, Unavailable Unavailable MEME, STEPHANI MARTINES RUPERT, Unavailable Unavailable MARTINES RUPERT MARTINES RUPERT, Unavailable Unavailable MARTINES RUPERT EDWIN MARTINES, Unavailable Unavailable EDWIN MARTINES [facility] Unavailable Unavailable [place], [facility] [place] [facility]available [facility]available [facility], Unavailable Unavailable [facility] Unavailable Unavailable [facility], [facility] Unavailable Unavailable [facility], [facility] FEDERATED Unavailable Unavailable TRANSPORTATION SER, [facility] NAHOMY TANI, NAHOMY Unavailable Unavailable TANI ERIKA COREA, Unavailable Unavailable ERIKA COREA [facility] Unavailable Unavailable MAZON, [facility] Unavailable Unavailable INC, [facility] Unavailable Unavailable HOSPITAL P, [facility] CALISTA MEJIA, Unavailable Unavailable CALISTA MEJIA HINES Unavailable Unavailable ANITA HOWARD Unavailable Unavailable MARIETTA HOWARD, Unavailable Unavailable MARIETTA HOWARD [facility], Unavailable Unavailable [facility] Unavailable Unavailable [facility], [facility], Unavailable Unavailable [facility] KILPELA, KILPELA Unavailable Unavailable KILPELA JEA, [...] JR DWI, AUDIE Unavailable Unavailable JR DWI [facility] Unavailable Unavailable 11, [facility] 11 [facility] Unavailable Unavailable ACTION, [facility], Unavailable Unavailable [facility] NAVIN HARRY, NAVIN Unavailable Unavailable HRARY PEDRITO SOLE, Unavailable Unavailable [facility] Unavailable Unavailable SERVICES, [facility] [place] Personeta Unavailable Unavailable AMBULANCE, [place] Done In :60 Seconds MD AMBULANCE ROB ZUNIGA JR Unavailable Unavailable F, ROB ZUNIGA JR [facility] Unavailable Unavailable [facility], [facility] ZHAO CEJA, Unavailable Unavailable ZHAO CEJA FLORENTINO MARTY, FLORENTINO MARTY Unavailable Unavailable FLORENTINO MARTY, FLORENTINO MARTY Unavailable Unavailable MULBERRY HARRY, Unavailable Unavailable MULBERRY HARRY [facility] Unavailable Unavailable [facility], [facility] NURSES REGISTRY & Unavailable Unavailable HOME HE, NURSES REGISTRY & HOME HE P[facility]C LABS, [facility], P[facility]C Unavailable Unavailable LABS, [facility] Unavailable Unavailable PLL[facility], [facility]OLOGY [facility] Unavailable Unavailable LAB, PATHOLOGY & CYTOLOGY LAB [facility], Unavailable Unavailable [facility], Unavailable Unavailable [facility] RONDA, RONDA Unavailable Unavailable JACKY LEI, Unavailable Unavailable JACKY CASON MD Unavailable Unavailable [facility], TRACY CASON MD [facility] SCIFRES ANG, SCIFRES Unavailable Unavailable [...] SOURCE FAUSTO GERBER, Unavailable Unavailable FAUSTO GERBER [facility] # Unavailable Unavailable [id number], [facility] # [id number] FLAVIA ALEJANDRO Unavailable Unavailable [facility] Unavailable Unavailable AGENCY, [facility] WEHRMAN III ADDIS, Unavailable Unavailable WEHRMAN III ADDIS STEFFANY III ADDIS, Unavailable Unavailable WEHRVISHNU III ADDIS Ang Unavailable Unavailable SUE FIELDS, Rob OLSON, NANCY Unavailable Unavailable WHITNEY Purpose Continuity of Care Document - 07-04-2007 through 2016 Problems Code Diagnosis DOS Provider Status R748 ABNORMAL 02-21-2017 [facility] OTHER SERUM ENZYMES H6691 OTITIS 01-29-2017 [facility] MEDIA PHYSICIANS UNSPECIFIED GROUP RIGHT EAR H7011 CHRONIC 01-29-2017 [facility] MASTOIDITIS PHYSICIANS RIGHT EAR GROUP H7091 UNSPECIFIED 01-01-2017 [facility] PHYSICIANS MASTOIDITIS GROUP RIGHT EAR H7441 POLYP OF 01-01-2017 [facility] RIGHT PHYSICIANS MIDDLE EAR GROUP E010 IODINE-DEFI 12-11-2016 [facility] CIENCY PHYSICIANS RELATED GROUP DIFFUSE ENDEMIC GOITER E069 THYROIDITIS 12-11-2016 [facility] PHYSICIANS UNSPECIFIED GROUP R69 ILLNESS 12-11-2016 FED[facility]ATED UNSPECIFIED TRANSPORTAT ION SER D649 ANEMIA 11-16-2016 [facility] UNSPECIFIED YOGESH HOLDINGS E785 HYPERLIPIDE 11-16-2016 [facility] GWEN YOGESH UNSPECIFIED HOLDINGS U19792 EPILEPSY 11-16-2016 [facility] UNS NOT YOGESH [...] DYSPHAGIA 10-16-2016 A Angeles CRUZ UNSPECIFIED PSC S27576E UNS FOREIGN 10-16-2016 A Angeles CRUZ BODY PSC LARYNX CAUS OTH INJURY INIT ENC Z6825 BODY MASS 10-16-2016 A Angeles CRUZ INDEX BMI PSC 25.0-25.9 ADULT E039 HYPOTHYROID 10-12-2016 [facility] ISM PHYSICIANS UNSPECIFIED GROUP [id number] FOOD IN 10-09-2016 [facility] ESOPHAGUS PHYSICIANS, CAUSING OTH PLLC INJURY INITIAL ENC Z0389 ENCOUNTER 10-09-2016 [facility] OT MEDICAL SUSPCT DZ & IMAGING ASS COND RULED OUT R2233 LOC 09-07-2016 A Angeles CRUZ SWELLING PSC MASS & LUMP UPPER LIMB BILATERAL K811 CHRONIC 07-05-2016 [facility] CHOLECYSTIT PHYSICIANS IS GROUP X13533 ENCOUNTER 07-05-2016 [facility] P AL CARIOVASCUL AR EXAM P91629 ENCOUNTER 07-05-2016 [facility] P AL RESPIRATORY EXAM Z06286 ENCOUNTER 07-05-2016 [facility] P AL LABORATORY EXAM J309 ALLERGIC 05-31-2016 A Angeles CRUZ RHINITIS PSC UNSPECIFIED H7013 CHRONIC 05-26-2016 [facility] MASTOIDITIS PHYSICIANS BILATERAL GROUP H6522 CHRONIC 05-11-2016 [facility] SEROUS [facility] OTITIS INC MEDIA LEFT EAR R4702 DYSPHASIA 05-11-2016 [facility] R7989 OTHER SPEC 05-11-2016 [facility] ABNORMAL MEDICAL FINDINGS IMAGING ASS BLOOD CHEMISTRY R945 ABNORMAL 05-11-2016 [facility] RESULTS OF [facility] LIVER INC FUNCTION STUDIES E876 HYPOKALEMIA 05-08-2016 [facility] R21 RASH AND 04-07-2016 [facility] OTHER YOGESH NONSPECIFIC HOLDINGS SKIN ERUPTION R0781 PLEURODYNIA 02-22-2016 [facility] R252 CRAMP AND 02-17-2016 [facility] SPASM YOGESH HOLDINGS R5383 OTHER 02-17-2016 [facility] FATIGUE YOGESH HOLDINGS R0981 NASAL 01-04-2016 A Angeles CRUZ CONGESTION PSC Z1231 ENCOUNTER 11-18-2015 [facility] SCREENING MEDICAL MAMMO MALIG IMAGING ASS NEOPLASM BREAST H905 UNSPECIFIED 11-11-2015 [facility] PHYSICIANS SENSORINEUR GROUP AL HEARING LOSS N75229 ENCOUNTER 11-05-2015 [facility] POLISHER NUMERAL EXAM YOGESH GENERAL RTN HOLDINGS W/O ABNORMAL FIND H6092 UNSPECIFIED 09-22-2015 [facility] OTITIS PHYSICIANS EXTERNA GROUP LEFT EAR H7012 CHRONIC 09-22-2015 [facility] MASTOIDITIS PHYSICIANS LEFT EAR GROUP B33803 SPONDYLOSIS 07-01-2015 [facility] W/O PHYSICIANS MYELOPATH/R GROUP ADICULOPATH Y CERV RGN 4011 ESSENTIAL 03-05-2015 A Angeles PATEL MD PSC N, BENIGN 90857 03-05-2015 [facility] TRANSPORTAT ION SER 9331 FOREIGN 02-22-2015 [facility] BODY IN PHYSICIANS LARYNX GROUP 4019 UNSPECIFIED 02-15-2015 [facility] ESSENTIAL [facility] HYPERTENSIO INC N 5303 STRICTURE 02-15-2015 [facility] AND [facility] STENOSIS OF INC ESOPHAGUS 61681 OTHER 02-15-2015 [facility] MEDICAL INVOLVING IMAGING ASS HEAD AND NECK 44269 DYSPHAGIA 02-15-2015 [facility] UNSPECIFIED PHYSICIANS, PLLC V140 PERSONAL 02-15-2015 [facility] HISTORY OF [facility] ALLERGY TO INC PENICILLIN 3814 NONSUPPRATV 01-20-2015 [facility] OTITIS PHYSICIANS MEDIA NOT GROUP SPEC ACUT/CHRON 3839 UNSPECIFIED 01-20-2015 [facility] PHYSICIANS MASTOIDITIS GROUP 4730 CHRONIC 01-20-2015 [facility] MAXILLARY PHYSICIANS SINUSITIS GROUP 2449 UNSPECIFIED 11-24-2014 [facility] HYPOTHYROID ISM 56472 UNSPEC 11-24-2014 A Angeles CRUZ EPILEPSY PSC WITHOUT MENTION INTRACT EPILEPSY 4779 ALLERGIC 11-24-2014 A Angeles CRUZ RHINITIS PSC CAUSE UNSPECIFIED 3804 IMPACTED 09-10-2014 YOON KERI CERUMEN 3831 CHRONIC 09-10-2014 [facility] KERI MASTOIDITIS 24623 ESOPHAGEAL 07-02-2014 A Angeles CRUZ REFLUX PSC 71126 SIMPLE/UNSP 04-09-2014 [facility] ECIFIED [facility] P SEROUS OTITIS MEDIA 61700 UNSPECIFIED 04-09-2014 [facility], [employer] [place] [address] CHOLESTE[place] 04-09-2014 [facility] P AND MASTOID 21687 OTHER CHEST 01-20-2014 FLORENTINO MARTY PAIN 3674 PRESBYOPIA 12-12-2013 SCIFRES ANG 4770 ALLERGIC 10-31-2013 FLORENTINO MARTY RHINITIS DUE TO POLLEN V7612 OTHER 09-30-2013 [facility] SCREENING [facility] MAMMOGRAM INC 2859 UNSPECIFIED 09-15-2013 [facility] 4610 ACUTE 09-04-2013 KARRIE SAAVEDRA MAXILLARY SINUSITIS 4612 ACUTE 09-04-2013 K[facility]E SAAVEDRA ETHMOIDAL SINUSITIS 7840 HEADACHE 08-07-2013 FLORENTINO MARTY 09628 CRAMP OF 05-01-2013 FLORENTINO MARTY LIMB 15912 HYPERTENSIO 02-12-2013 Maxine CELESTIN MD [facility] 14999 OTHER 02-11-2013 [facility] CONVULSIONS [facility] 91624 OBSTRUCTIVE 2012 KARRIE SAAVEDRA SLEEP APNEA 401.9 401.9 12-20-2012 [place] HYPERTENSIO [facility] 493.90 493.90 12-20-2012 [place] ASTHMA, [facility] UNSPECIFIED [facility] 53116 ASTHMA, 12-20-2012 [facility] UNSPECIFIED [facility] , [facility] UNSPECIFIED STATUS 530.3 530.3 12-20-2012 [place] ESOPHAGEAL [facility] STRICTURE Hospital 780.39 780.39 12-20-2012 [place] OTHER [facility] CONVULSIONS [facility] 9351 FOREIGN 12-20-2012 WEHRMAN III BODY IN ADDIS ESOPHAGUS V14.0 V14.0 12-20-2012 [place] HX-PENICILL [facility] IN ALLERGY Hospital 2409 GOITER, 12-12-2012 [facility] UNSPECIFIED [facility] 2459 UNSPECIFIED 12-09-2012 KARRIE SAAVEDRA THYROIDITIS 7881 DYSURIA 10-14-2012 [facility] DON 36618 BLISTERS 10-14-2012 [facility] WITH DON EPIDERMAL LOSS DUE TO BURN-BREAST 2724 OTHER AND 09-12-2012 D[facility]TE UNSPECIFIED [facility] HYPERLIPIDE GWEN V7231 ROUTINE 09-06-2012 [facility] GYNECOLOGIC DON AL EXAMINATION 65655 OSTEOARTHRO 06-27-2012 [facility] HOME S UNSPEC HEALTH WHETHER AGENCY GEN/LOC UNSPEC SITE 7812 ABNORMALITY 06-27-2012 [facility] HEALTH AGENCY 7993 UNSPECIFIED 06-27-2012 [facility] HOME DEBILITY HEALTH AGENCY V571 OTHER 06-27-2012 [facility] HOME PHYSICAL HEALTH THERAPY AGENCY 6259 UNSPEC 06-08-2012 [facility] IMAGING ASS W/FEMALE GENITAL ORGANS 19113 PAIN IN 06-08-2012 [facility] JOINT MEDICAL PELVIC IMAGING ASS REGION AND THIGH 7295 PAIN IN 06-08-2012 [facility] TISSUES OF SERVICE LIMB 8439 SPRAIN&STRA 06-08-2012 WEHRMAN III IN OF ADDIS UNSPECIFIED SITE OF HIP&THIGH E8889 UNSPECIFIED 06-08-2012 [facility] FALL [facility] SERVICE 6980 PRURITUS 06-05-2012 [facility] ANI DON 77732 OSTEOARTHRO 06-04-2012 [facility] S UNSPEC MEDICAL GEN/LOC IMAGING ASS PELV REGION&THIG H 43410 DEGEN 06-04-2012 [facility] LUMBAR/LUMB MEDICAL OSACRAL IMAGING ASS INTERVERTEB RAL DISC 7243 SCIATICA 06-04-2012 [facility] INC 8472 LUMBAR 06-04-2012 [facility] SPRAIN AND [facility] STRAIN INC 7821 RASH AND 05-31-2012 [facility] OTHER DON NONSPECIFIC SKIN ERUPTION 62858 PAIN IN 05-03-2012 [facility] JOINT, DON SHOULDER REGION 4554 EXTERNAL 02-23-2012 [facility] THROMBOSED DON HEMORRHOIDS 931 FOREIGN 01-29-2012 [facility] [place]ODY [place] 50685 HEMANGIOMA 01-05-2012 [facility] OF SKIN AND DON SUBCUTANEOU S TISSUE 3813 OTHER&UNSPE 07-12-2011 [facility] C CHRONIC DON NONSUPPURAT [place] OTITIS MEDIA 00865 LOC-REL 04-11-2011 NEW EPILEPSY & ARMADA ES W/SPS CLINIC PSC W/O INTRACTABL EPIL 318 OTHER 03-27-2011 SUPPORT SPECIFIED SOURCE INTELLECTUA L DISABILITIE S 2761 HYPOSMOLALI 2010 [facility] TY AND/OR EMERGENCY HYPONATREMI SERVICES A 7802 SYNCOPE AND 2010 [facility] COLLAPSE [facility]ANCE SERVICE 89273 NAUSEA WITH 2010 [facility] VOMITING [facility] INC 54202 VOMITING 2010 [facility] ALONE [facility] 4739 UNSPECIFIED 12-18-2010 [facility] SINUSITIS [facility]GENCY SERVICES 7804 DIZZINESS 12-18-2010 [facility] AND EMERGENCY GIDDINESS SERVICES 7862 COUGH 12-18-2010 [facility] 7906 OTHER 10-04-2010 [facility] ABNORMAL [facility] BLOOD INC CHEMISTRY 49023 OTHER 09-27-2010 NEW CONDITIONS ARMADA OF BRAIN CLINIC PSC 460 ACUTE 09-19-2010 [facility] NASOPHARYNG DON ITIS 7810 ABNORMAL 08-20-2010 [facility] INVOLUNTARY AMBULANCE MOVEMENTS SERVICE 45635 MUSCLE 05-13-2010 [facility] WEAKNESS EMERGENCY (GENERALIZE SERVICES D) 98475 OTHER 05-13-2010 [facility] MALAISE AND [facility] FATIGUE INC 63984 HYPERSOMNIA 04-08-2010 [facility] WITH SLEEP RUPERT APNEA UNSPECIFIED 84014 HYPERSOMNIA 04-08-2010 [facility]IN[facility] RUPERT UNSPECIFIED 60475 UNSPECIFIED 03-31-2010 YOON KERI INFECTIVE OTITIS EXTERNA 5589 OTH&UNSPEC 03-18-2010 [facility] NONINFECTIO DON US GASTROENTER ITIS&COLITI S 7847 EPISTAXIS 03-03-2010 YOON KERI 75407 ABDOMINAL 02-11-2010 [facility] PAIN RIGHT DON LOWER QUADRANT 92030 ABDOMINAL 02-11-2010 [facility] PAIN, LEFT DON LOWER QUADRANT 3829 UNSPECIFIED 12-22-2009 [facility], OTITIS DON R MEDIA 59273 THYROTOX 11-02-2009 KARRIE, W/O KRISTI G GOITER/OTH CAUSE W/O CRISIS 10784 OPEN 08-19-2009 [facility] FRACTURE HOME MED OTHER [employer] SPECIFIED PART PELVIS OTHER 95254 EPILEPSY 08-13-2009 LAT[facility] COMP PG DON R /PP UNSPEC EPIS CARE/NA 27443 REFLUX 07-28-2009 [facility] [place]OPHAGITIS [place] R 55368 UNSPECIFIED 07-28-2009 [place]OV[place]NA [place] N 8[address] CLOSED 07-27-2009 [facility] FRACTURE [facility] UNSPECIFIED INC PART RADIUS W/ULNA 2630 MALNUTRITIO 07-13-[address] [facility] DEGREE 71176 OTHER 07-13-2009 [facility] CLOSED MEDICAL FRACTURES IMAGING OF DISTAL ASSOCIATES END OF RADIUS 56656 CLOSED 07-13-2009 BOWEN FRACTURE OF TRACY DISTAL END OF ULNA V653 DIETARY 07-13-2009 [facility] COUNSELING 462 ACUTE 03-17-2009 [facility], PHARYNGITIS DON R 4660 ACUTE 03-17-2009 HANKS, BRONCHITIS DON R 79029 CLOSED 03-09-2009 [facility] FRACTURE OF [facility] INC UNSPECIFIED PART OF RADIUS 68561 UNSPECIFIED 03-09-2009 [facility] CLOSED MEDICAL FRACTURE OF IMAGING CARPAL ASSOCIATES BONE 74710 UNSPECIFIED 02-03-2009 LATONYA, SITE OF DON R ANKLE SPRAIN AND STRAIN 70651 CLOSED 01-12-2009 [facility] COLLES [facility] FRACTURE INC 25110 CLOSED 01-08-2009 [facility] FRACTURE OF [facility] LOWER END INC OF RADIUS WITH ULNA E8490 PLACE OF 01-07-2009 [place] OCCURRENCE, MEDICAL HOME IMAGING ASSOCIATES E8842 ACCIDENTAL 01-07-2009 [facility] FALL FROM MEDICAL CHAIR IMAGING ASSOCIATES 920 CONTUSION 12-04-2008 [facility] OF FACE AMBULANCE SCALP AND SERVICE NECK EXCEPT EYE 80283 OTHER 11-05-2008 COMBINED ABNORMAL PHYSICIANS GLUCOSE LAB V5869 LONG-TERM 10-23-2008 [facility] (CURRENT) HEALTH USE OF CARE INC OTHER MEDICATIONS V5883 ENCOUNTER 10-23-2008 [facility] FOR [facility]ALTH THERAPEUTIC CARE INC DRUG MONITORING 4659 ACUTE URIS 09-15-2008 LATONYA OF DON R UNSPECIFIED SITE 7823 EDEMA 01-08-2008 [facility], DON R 7242 LUMBAGO 01-02-2008 [facility] INC 7245 UNSPECIFIED 01-02-2008 [facility] 7859 OTHER 12-05-2007 [facility] SYMPTOMS MEDICAL INVOLVING IMAGING CARDIOVASCU ASSOCIATES LAR SYSTEM 7820 DISTURBANCE 11-25-2007 LAT[facility]YA OF SKIN DON R SENSATION 8088 UNSPECIFIED 11-13-2007 [facility] CLOSED DON R FRACTURE OF PELVIS 4618 OTHER ACUTE 09-18-2007 [facility] SINUSITIS DON R 808 FRACTURE OF 09-02-2007 [facility] P[facility]VIS HOME [employer] 3489 UNSPECIFIED 08-29-2007 [facility] CONDITION HEALTH OF BRAIN AGENCY V1588 PERSONAL 08-29-2007 [facility] HISTORY OF HEALTH FALL AGENCY 8208 CLOSED 07-31-2007 [facility] FRACTURE AMBULANCE UNSPECIFIED SERVICE PART NECK FEMUR 8082 CLOSED 07-27-2007 [facility] FRACTURE OF MEDICAL PUBIS IMAGING ASSOCIATES 71849 UNS ADVRS 07-27-2007 [facility] EFF OTH RX [facility] MEDICINAL&B INC IOLOGICAL SBSTNC 7937 NONSPC ABN 07-26-2007 [place] FIND RAD RADIOLOGY & OTH EXM ASSOCIATES [...] 07 08 7. 10 00 HO Ac ND 06 -1 -0 50 00 ME ti [...] 00 7- 0- 00 06 TO ve ND 51 20 20 07 WN IL 80 [...] 00 7- 6- 00 06 TO ve ND 51 20 20 07 WN IL 80 [...] 00 6- 1- 00 06 TO ve ND 51 20 20 07 WN IL 80 [...] 00 6- 0- 00 06 TO ve ND 51 20 20 07 WN IL 80 [...] 8- 8- 00 SI 11 HE ve ND 02 20 20 DE NS ED 20 [...] 3- 2- 00 SI 47 HE ve ND 75 20 20 DE NS IL 98 [...] 3- 1- 00 SI 47 HE ve ND 75 20 20 DE NS IL 98 [...] E TA 10 BL 05 ET 91 ND 68 06 06 0 15 3 71 [...] 09 11 11 E 9 PH DO ND AR N OP MA R CY 50 [...] 09 [address] ND AR OR OP MA G CY 50 [...] 1- 1- 00 SI 44 HE ve ND 75 20 20 DE NS IL 96 [...] 1- 9- 00 SI 44 HE ve ND 75 20 20 DE NS IL 96 [...] 1- 0- 00 SI 44 HE ve ND 75 20 20 DE NS IL 96 [...] ti NO 23 SI 44 HE ve ND 75 20 20 DE NS IL 96 [...] 2- 3- 00 SI 51 ON ve ND 02 20 20 DE ED 20 [address] SO AR OR LO MA G NE CY 4 OF MG CY DO NT SE HI PK AN A LI 00 12 04 [address] Ac SI 17 -0 -[address] 37 EP ti NO 23 1- 9- 00 SI 44 HE ve ND 75 20 20 DE NS IL 96 [...] 2- 2- 00 SI 51 ON ve ND 02 20 20 DE ED 20 10 [...] NO 23 1 SI 44 HE ve ND 75 20 20 DE NS IL 96 [...] 1 8- 00 SI 44 HE ve ND 75 20 20 DE NS IL 96 [...] 1- 4- 00 SI 44 HE ve ND 75 20 20 DE NS IL 96 [...] 1- 7- 00 SI 44 HE ve ND 75 20 20 DE NS IL 96 [...] 3- 9- 00 SI 09 HE ve ND 75 20 20 DE NS IL 96 [...] 5- 4- 00 SI 66 HE ve ND 02 20 20 DE NS ED 20 [...] 00 10 15 ME 25 No Ac ND 06 -0 -1 .0 D 42 t [...] 6- 0- 00 SI 22 Av ve ND 02 20 20 DE ai ED 20 [...] 00 27 14 ME 25 No Ac ND 46 -0 -0 .0 D 42 t [...] 00 60 30 ME 25 No Ac ND 46 -0 -2 .0 D 42 t ti OX 20 6- 6- 00 CA 76 Av ve EN 19 20 20 RE 1 ai 00 08 08 la 50 5 PH bl 0 AR e MG MA CY TA BL LL ET C CI 00 02 03 00 10 15 ME 25 No Ac ND 06 -0 -2 .0 D 42 t [...] Procedure DOS Code Location Performer Comment COMPREHEN 88833 [facility] INC. PANEL NONEMERG A0120 FEDERATED FEDERATED TRNSPRT: 7 [facility] NONEMERG A0120 FEDERATED FEDERATED TRNSPRT: 7 MINI-BUS TRANSPORT TRANSPORT MTN [facility]/OT SYS LIPID 20868 A Angeles HILLIARD PANEL 7 NANCY FIELDS PSC DRUG 26245 [facility] LAB MAX SCREEN 7 YOGESH YOGESH QUANTITAT HOLDINGS HOLDINGS BROOKLYNN OXCARBAZE PINE COLLECTIO 41606 A Angeles HILLIARD N VENOUS 7 NANCY FIELDS B[place] [address] LAB [facility] LAB MAX FREE 7 YOGESH YOGESH THYROXINE HOLDINGS HOLDINGS GENERAL 31408 [facility] HEALTH 7 YOGESH YOGESH PANEL HOLDINGS HOLDINGS OPHTH 58881 [facility] 7 XM&EVAL COMPRHNSV ESTAB PT 1/> NONEMERG A0120 FEDERATED FEDERATED TRNSPRT: 7 [facility] TRANSPORT [facility] RADIOLOGI 67045 [facility] 7 MEDICAL EXAMINATI IMAGING ON CHEST ASS SINGLE VIEW FRONTAL THER 64682 [facility] PROPH/DX 7 [facility] NJX IV INC INC PUSH SINGLE/1S T SBST/DRUG UNCLASSIF J3490 [facility] IED DRUGS 7 [facility] INC INC NONEMERG A0120 FEDERATED FEDERATED TRNSPRT: 7 [facility]SPORT [facility] NONEMERG A0120 FEDERATED FEDERATED TRNSPRT: 7 MINI-BUS TRANSPORT TRANSPORT MTN ATION SER ATION SER AREA/OTH SYS ECG 41168 [facility] ROUTINE 7 [facility] ECG INC INC W/LEAST 12 LDS TRCG ONLY W/O I&R COLLECTIO 31427 [facility] MONTEIR[facility] N VENOUS 7 [facility] BLOOD INC INC VENIPUNCT URE COMPREHEN 08234 [facility] MONTEIRO SIVE 7 [facility]OS[facility] METABOLIC INC INC PANEL ECG 64042 CA[facility]O GARCIA ROUTINE 7 [facility] W/LEAST P 12 LDS I&R ONLY THERAPEUT 17131 Maxine HILLIARD IC 6 NANCY FIELDS PROPHYLAC PSC TIC/DX INJECTION SUBQ/IM NONEMERG A0120 FEDERATED FEDERATED TRNSPRT: 6 MINI-BUS TRANSPORT TRANSPORT MTN ATION SER ATION SER AREA/OTH SYS UNCLASSIF J3490 [facility] IED DRUGS 6 [facility] INC INC HEPATOBIL 80273 [facility] SYST 6 [facility] IMAG INC INC INC GB W/PHARMA INTERVENJ NONEMERG A0120 FEDERATED FEDERATED TRNSPRT: 6 MINI-BUS TRANSPORT TRANSPORT MTN ATION SER [place] AREA/[place] [address] [facility] ABDOMINAL 6 [facility] REAL INC INC TIME W/IMAGE LIMITED RADEX 64256 [facility] ESOPHAGUS 6 [facility] INC INC NONEMERG A0120 FEDERATED FEDERATED TRNSPRT: 6 MINI-BUS TRANSPORT TRANSPORT MTN ATION SER ATION SER AREA/OTH SYS COMPREHEN 52053 [facility] SIVE 6 DIAGNOSTI DIAGNOSTI METABOLIC CS CS PANEL COLLECTIO 92822 Maxine HILLIARD N VENOUS 6 NANCY FIELDS [place] B[place] [address] [facility] MONTE[facility] FREE 6 [facility] [place] [address] [facility] THYROID 6 [facility] STIMULATI INC INC NG HORMONE TSH NONEMERG A0120 FEDERATED FEDERATED TRNSPRT: 6 MINI-BUS TRANSPORT TRANSPORT MTN ATION SER ATION SER AREA/OTH SYS NONEMERG A0120 FEDERATED FEDERATED TRNSPRT: 6 [facility] TRANSPORT TRANSPORT MTN ATION SER ATION SER AREA/OTH SYS COLLECTIO [id number] Maxine C KILZAK N VENOUS 6 NANCY FIELDS JEMaxine BLOOD PSC VENIPUNCT URE COMPREHEN [id number] LAB MAX LAB MAX SIVE 6 [facility] METABOLIC HOLDINGS HOLDINGS PANEL NONEMERG A0120 FEDERATED FEDERATED TRNSPRT: 6 [facility] TRANSPORT TRANSPORT MTN ATION SER ATION SER AREA/OTH SYS RADEX 16064 CAYETANO MONTEIRO ESOPHAGUS 6 [facility] INC INC NONEMERG A0120 FEDERATED FEDERATED TRNSPRT: 6 [facility] TRANSPORT TRANSPORT MTN ATION SER ATION SER AREA/OTH SYS COLLECTIO 88617 CAYETANO MONTEIRO N VENOUS 6 [facility] [place] [address] CAYETANO MONTEIRO FREE 6 [facility] [place] [id number] CAYETANO MONTEIRO THYROID 6 [facility] STIMULATI INC INC NG HORMONE TSH NONEMERG A0120 FEDERATED FEDERATED TRNSPRT: 6 [facility] TRANSPORT TRANSPORT MTN ATION SER ATION SER AREA/OTH SYS NONEMERG A0120 FEDERATED FEDERATED TRNSPRT: 6 [facility] TRANSPORT TRANSPORT MTN ATION SER ATION SER AREA/OTH SYS RADEX 03094 CAYETANO MONTEIRO RIBS UNI 6 [facility] W/POSTERO INC INC ANT CH MINIMUM 3 VIEWS NONEMERG A0120 FEDERATED FEDERATED TRNSPRT: 6 [facility] TRANSPORT TRANSPORT MTN ATION SER ATION SER AREA/[place] [address] LAB MAX LAB MAX THYROID 6 [facility] STIMULATI HOLDINGS [place] [address] LAB MAX LAB MAX FREE 6 [facility] [place] [id number] LAB MAX [place] MAGNESIUM 6 YOGESH E O2 HOLDINGS COMPREHEN 80104 LAB MAX LAB MAX SIVE 6 [facility] METABOLIC HOLDINGS HOLDINGS PANEL DRUG 24689 LAB MAX LAB MAX SCREEN 6 [facility] QUANTITAT HOLDINGS HOLDINGS [place] OXCARBAZE [place] NONEMERG A0120 FEDERATED FEDERATED TRNSPRT: 6 [facility]SPORT TRANSPORT MTN ATION SER ATION SER AREA/OTH SYS THERAPEUT [id number] A C A C IC 6 NANCY [...] INC HY KEVIN INCL CAD WHEN PERFORMD 02411 CAYETANO MONTEIRO AIDED 6 [facility] DETECTION INC INC SCREENING MAMMOGRAP HY NONEMERG A0120 FEDERATED FEDERATED TRNSPRT: 6 [facility]SPORT TRANSPORT MTN ATION SER ATION SER AREA/OTH SYS NONEMERG A0120 FEDERATED FEDERATED TRNSPRT: 6 [facility] TRANSPORT TRANSPORT MTN ATION SER ATION SER AREA/OTH SYS CYTP 36526 LAB MAX LAB MAX CERV/VAG 6 YOGESH YOGESH AUTO THIN HOLDINGS HOLDINGS LAYER PREP MNL SCREEN NONEMERG A0120 FEDERATED FEDERATED TRNSPRT: 6 [facility] TRANSPORT TRANSPORT MTN ATION SER ATION SER AREA/OTH SYS THYROID 10476 LAB MAX LAB MAX HORM 6 [facility] UPTK/THYR HOLDINGS HOLDINGS [place] [address] LAB MAX LAB MAX THYROXINE 6 [facility] [place] [address] LAB MAX LAB MAX TRIIODOTH 6 YOGESH YOGESH YRONINE HOLDINGS HOLDINGS T3 TOTAL TT3 BASIC 99245 LAB MAX LAB MAX METABOLIC 6 YOGESH YOGESH PANEL HOLDINGS HOLDINGS CALCIUM TOTAL DRUG 66932 LAB MAX LAB MAX SCREEN 6 YOGESH YOGESH QUANTITAT HOLDINGS [place] [address] LAB MAX LAB AMX THYROID 6 YOGESH YOGESH STIMULATI HOLDINGS HOLDINGS NG HORMONE TSH LIPOPROTE 10222 A C NANCY IN DIR 6 NANCY FIELDS WHITNEY TERESA HIGH PSC DENSITY CHOLESTER OL TRANSFERA 86700 A C NANCY SE 6 NANCY FIELDS WHITNEY ASPARTATE PSC AMINO AST SGOT TRANSFERA 18808 A C NANCY SE 6 NANCY FIELDS WHITNEY [place] [address] A C NANCY TRIGLYCER 6 NANCY FIELDS WHITNEY IDES PSC BLOOD 95528 A C CRUZ COUNT 6 NANCY FIELDS WHITNEY COMPLETE PSC AUTO&AUTO DIFRNTL WBC CHOLESTER 06396 A C NANCY OL 6 NANCY FIELDS WHITNEY SERUM/WHO PSC LE BLOOD TOTAL GLUCOSE 07229 A C NANCY QUANTITAT 6 NANCY FIELDS [...] ATION SER ATION SER AREA/OTH SYS BASIC 84261 [facility]ST METABOLIC 5 DIAGNOSTI DIAGNOSTI PANEL CS CS CALCIUM TOTAL BLOOD 15915 A C FLORENTINO MARTY COUNT 5 NANCY FIELDS COMPLETE PSC AUTO&[place] [address] QUEST QUEST THYROID 5 DIAGNOSTI DIAGNOSTI STIMULATI CS CS NG HORMONE TSH NONEMERG A0120 FEDERATED FEDERATED TRNSPRT: 5 [facility] TRANSPORT TRANSPORT MTN ATION SER ATION [facility]/OT SYS DIRECT G0154 [facility] MIN NONEMERG A0120 FEDERATED FEDERATED TRNSPRT: 5 [facility] TRANSPORT TRANSPORT MTN ATION SER ATARH [facility]/OT SYS DIRECT G0154 [facility] SK[facility] AGENCY AGENCY [facility] E EA 15 MIN NONEMERG A0120 FEDERATED FEDERATED TRNSPRT: 5 [facility] TRANSPORT TRANSPORT MTN ATION SER ATARH [facility] SYS DIRECT G0154 [facility] EA 15 MIN DIRECT G0154 [facility]ILL [facility] E EA 15 MIN DIRECT G0154 [facility]ILL 5 [facility] E EA 15 MIN DIRECT G0154 [facility]ILL 5 [facility]ENC[facility]ENC[facility] E EA 15 MIN DIRECT G0154 [facility] SKILL 5 [facility] AGENCY AGENCY [facility] E EA 15 MIN NONEMERG A0120 FEDERATED FEDERATED TRNSPRT: 5 [facility] TRANSPORT TRANSPORT MTN ATION SER ATARH [facility]/OT SYS NONEMERG A0120 FEDERATED FEDERATED TRNSPRT: 5 [facility] TRANSPORT TRANSPORT MTN ATION SER ATARH [facility]/OT SYS NONEMERG A0120 FEDERATED FEDERATED TRNSPRT: 5 [facility] TRANSPORT TRANSPORT MTN ATION SER ATARH [facility]/OT SYS RADIOLOGI 88641 CARLOS Reynoso MEDICAL YAZ EXAMINATI IMAGING ON NECK ASS SOFT TISSUE NONEMERG A0120 FEDERATED FEDERATED TRNSPRT: 5 [facility] TRANSPORT TRANSPORT MTN ATION SER ATION SER AREA/OTH SYS NONEMERG A0120 FEDERATED FEDERATED TRNSPRT: 5 [facility] TRANSPORT TRANSPORT MTN ATION SER ATION SER AREA/OTH SYS NONEMERG A0120 FEDERATED FEDERATED TRNSPRT: 5 [facility]SPORT TRANSPORT MTN ATION SER ATION SER AREA/[place] [address] [facility]ST THYROID 5 DIAGNOSTI DIAGNOSTI STIMULATI CS CS NG HORMONE TSH NONEMERG A0120 FEDERATED FEDERATED TRNSPRT: 5 [facility]SP[facility] TRANSPORT MTN ATION SER ATION SER AREA/OTH SYS DEBRIDEME 28456 KARRIE YOON NT 5 KERI KERI MASTOIDEC [...] ATION SER JUSTINE ARE[place] [address] QUE[facility]ST THYROID 4 DIAGNOSTI DIAGNOSTI STIMULATI CS CS NG HORMONE TSH NONEMERG A0120 FEDERATED FEDERATED TRNSPRT: 4 TRANS [facility] TRANSPORT SERVBLUEG MTN ATION SER JUSTINE AREA/[place] [address] CAYETANO MONTEIRO XTRNL 4 [facility] AUDITORY INC INC CANAL ANES TYMPANOST 24615 CAYETANO MONTEIRO TAISHA 4 [facility] GENERAL INC INC ANESTHESI A ECG 03895 CAYETANO BRONSON JR ROUTINE 4 [facility] DWI ECG HOSPITAL W/LEAST P 12 LDS I&R ONLY LEVEL III 79433 [facility], PEDRITO SURG 4 [facility] SOLE PATHOLOGY GROSS&TANI ROSCOPIC EXAM ANESTHESI 25672 [facility] [place] A 4 ANESTH SHE EXTERNAL OF THE MIDDLE & BLUE INNER EAR W/BX NOS BASIC 08931 CAYETANO MONTEIRO METABOLIC 4 [facility] PANEL INC INC CALCIUM TOTAL DEBRIDEME 38170 YOONANALILIA YOON NT 4 KERI KERI MASTOIDEC JUANCHO CAVITY CMPLX INJECTION S0077 CAYETANO CAYETANO 4 [facility] CLINDAMYC INC INC IN PHOSPHATE 300 MG BLOOD 83449 CAYETANO MONTEIRO COUNT 4 [facility] COMPLETE INC INC AUTO&AUTO DIFRNTL WBC NONEMERG A0120 FEDERATED FEDERATED TRNSPRT: 4 TRANS [facility] TRANSPORT SERVBLUEG MTN ATION SER JUSTINE AREA/OTH SYS NONEMERG A0120 FEDERATED FEDERATED TRNSPRT: 4 TRANS [facility] TRANSPORT SERVBLUEG MTN ATION SER JUSTINE AREA/OTH SYS DEBRIDEME 95557 KARRIE YOON NT 4 KERI KERI MASTOIDEC JUAN[facility] CAVITY SIMPLE BLOOD 17385 FLORENTINO MARTY FLORENTINO MARTY COUNT 4 COMPLETE AUTO&AUTO DIFRNTL WBC COMPREHEN 63897 QUEST QUEST SIVE 4 DIAGNOSTI DIAGNOSTI METABOLIC CS CS PANEL NONEMERG A0120 FEDERATED FEDERATED TRNSPRT: 4 TRANS [facility] TRANSPORT SERVBLUEG MTN ATION SER JUSTINE AREA/OTH SYS NONEMERG A0120 FEDERATED FEDERATED TRNSPRT: 4 TRANS [facility] TRANSPORT SERVBLUEG MTN ATION SER JUSTINE AREA/OTH SYS DEBRIDEME 10519 KARRIE YOON NT 4 KERI KERI MASTOIDEC JUANCHO CAVITY SIMPLE ECG 68352 FLORENTINO MARTY FLORENTINO MARTY ROUTINE 4 ECG W/LEAST 12 LDS W/I&R NONEMERG A0120 FEDERATED FEDERATED TRNSPRT: 4 TRANS [facility] TRANSPORT SERVBLUEG MTN ATION SER JUSTINE AREA/OTH SYS NONEMERG A0120 FEDERATED FEDERATED TRNSPRT: 4 TRANS [facility] TRANSPORT SERVBLUEG MTN ATION SER JUSTINE AREA/OTH SYS DEBRIDEME 89268 KARRIE YOON NT 4 KERI KERI MASTOIDEC [facility] SIMPLE OPHTH 86231 [facility] 4 ANG ANG XM&EVAL COMPRHNSV ESTAB [...] HY KEVIN INCL CAD WHEN PERFORMD COMPUTER 72257 CAYETANO MONTEIRO AIDED 4 [facility] DETECTION INC [place] [address] [facility] THYROID 4 DIAGNOSTI DIAGNOSTI STIMULATI CS CS NG HORMONE TSH BLOOD 16282 FLORENTINO MARTY FLORENTINO MARTY COUNT 4 COMPLETE [...] ATION SER ATION SER AREA/OTH SYS DEBRIDEME 87540 KARRIE YOON NT 3 KERI KERI MASTOIDEC JUANCHO CAVITY SIMPLE NONEMERG A0120 FEDERATED FEDERATED TRNSPRT: 3 [facility] TRANSPORT TRANSPORT MTN ATION SER ATION SER AREA/OTH SYS NONEMERG A0120 FEDERATED FEDERATED TRNSPRT: 3 [facility] TRANSPORT TRANSPORT MTN ATION SER ATION SER AREA/OTH SYS DEBRIDEME 01055 KARRIE YOON NT 3 KERI KERI MASTOIDEC JUACNHO CAVITY SIMPLE NONEMERG A0120 FEDERATED FEDERATED TRNSPRT: 3 [facility] TRANSPORT TRANSPORT MTN ATION SER ATION SER AREA/OTH SYS NONEMERG A0120 LKLP CAC LKLP CAC TRNSPRT: 3 INC INC [facility]-BUS REGION 11 REGION 11 MTN AREA/OTH SYS LIPID 44293 [place] GOOD MARTY PANEL [address] [place] [address] [facility] THYROID 3 DIAGNOSTI DIAGNOSTI STIMULATI CS CS NG HORMONE TSH COLLECTIO 68168 [place] FERGUSON N VENOUS 3 NANCY FIELDS BLOOD PSC VENIPUNCT URE BASIC 71226 [facility] QUEST METABOLIC 3 DIAGNOSTI DIAGNOSTI PANEL CS CS CALCIUM TOTAL GLUCOSE 28449 [place] FERGUSON QUANTITAT 3 NANCY FIELDS BROOKLYNN BLOOD PSC XCPT REAGENT STRIP DIRECT G0154 [facility] SKILL [facility] AGENCY AGENCY HH/HOSPIC E EA 15 MIN QUANTITAT 60427 CAYETANO MONTEIRO ION DRUG 3 [facility] NOT INC INC ELSEWHERE SPECIFIED DIRECT G0154 [facility] SKILL 3 [facility] AGENCY AGENCY HH/HOSPIC E EA 15 MIN NONEMERG A0120 LKLP CAC LKLP CAC TRNSPRT: 3 INC INC [facility]-BUS REGION 11 REGION 11 MTN AREA/OTH SYS GROUND A0425 [facility] PER SERVICE SERVICE STATUTE MILE AMBULANCE A0429 [facility] SERVICE 3 AMBULANCE AMBULANCE BLS SERVICE SERVICE EMERGENCY TRANSPORT US [facility] 15718 CAYETANO MONTEIRO TISSUE 3 [facility] HEAD & INC [place] [address] CAYETANO CAYETANO FREE 3 [facility] [place] [address] CAYETANO MONTEIRO THYROID 3 [facility] STIMULATI INC INC NG HORMONE TSH URNLS DIP 87230 LATONYA HANKS 3 DON DON STICK/TAB LET RGNT NON-AUTO W/O MICRSCP COMPUTER- 82167 MEME MEME AIDED 3 YAZ YAZ DETECTION SCREENING MAMMOGRAP HY SCREENING G0202 MEM[facility] MEME 3 YAZ YAZ MAMMOGRAP HY KEVIN INCL CAD WHEN PERFORMD LIPID 51185 CAYETANO MONTEIRO PANEL 3 [facility] INC INC DRUG 45157 CAYETANO MONTEIRO SCREEN 3 [facility] QUANTITAT INC INC BROOKLYNN PHENYTOIN TOTAL COMPREHEN 56479 CAYETANO MONTEIRO SIVE 3 [facility] [address] CAYETANOANALILIA AVERYON THYROID 3 [facility] STIMULATI INC INC NG HORMONE TSH NONEMERG A0120 LKLP LKLP TRNSPRT: 3 [facility] MINI-BUS ACTION ACTION MTN AREA/OTH SYS CYTP 35689 [facility] SLIDES 3 DIAGNOSTI DIAGNOSTI CERV/VAG [...] HH/HOSPIC E EA 15 MIN RADEX HIP 93716 [facility] 2 MEDICAL YAZ UNILATERA IMAGING L ASS COMPLETE MINIMUM 2 VIEWS GROUND A0425 [facility] MILEAGE 2 AMBULANCE AMBULANCE PER SERVICE SERVICE STATUTE MILE AMBULANCE A0429 [facility] SERVICE 2 AMBULANCE AMBULANCE BLS SERVICE SERVICE EMERGENCY TRANSPORT RADIOLOGI 20657 [facility] C 2 MEDICAL YAZ EXAMINATI IMAGING ON PELVIS ASS 1/2 VIEWS RADIOLOGI 63377 [facility] C 2 MEDICAL YAZ EXAMINATI IMAGING ON PELVIS ASS 1/2 VIEWS RADEX 93863 [facility] SPINE 2 MEDICAL YAZ LUMBOSACR IMAGING AL ASS MINIMUM 4 VIEWS RADEX HIP 34600 CAYETANO MONTEIRO 2 [facility] UNILATERA INC INC L COMPLETE MINIMUM 2 VIEWS RADEX 69907 [facility] HIPS 2 MEDICAL YAZ BILATERAL IMAGING 2 VIEWS ASS ANTEROPOS T PELVIS NONEMERG A0120 [facility] TRNSPRT: 2 [facility] MINI-BUS ACTION ACTION [facility] AREA/OTH SYS RADEX 03571 HANKS HANKS SHOULDER 2 DON DON COMPLETE MINIMUM 2 VIEWS INCISION 76660 LATONYA HOLGUINS THROMBOSE 2 DON DON D HEMORRHOI D EXTERNAL COMPREHEN 12090 CAYETANO MONTEIRO SIVE 2 [facility] METABOLIC INC INC PANEL NONEMERG A0120 [facility] TRNSPRT: 2 [facility] MINI-BUS ACTION ACTION ARN AREA/OTH SYS NONEMERG A0120 [facility] TRNSPRT: 2 [facility] MINI-BUS ACTION ACTION [facility] AREA/OTH SYS DESTRUCTI 73348 LATONYA HANKS ON 2 DON DON PREMALIGN ANT LESION 1ST NONEMERG A0120 LKLP LKLP TRNSPRT: 2 [facility] MINI-BUS ACTION ACTION MTN AREA/OTH SYS NONEMERG A0120 LKLP LKLP TRNSPRT: 2 [facility] MINI-BUS ACTION ACTION MTN AREA/OTH SYS DRUG 57070 CAYETANO AVERYON SCREEN 2 [facility] QUANTITAT INC INC BROOKLYNN PHENYTOIN TOTAL LIPID 12175 CAYETANO CAYETANO PANEL 2 [facility] INC INC COMPREHEN 97264 CAYETANO AVERYON SIVE 2 [facility] [place] [address] CAYETANO AVERYON THYROID 2 [facility] STIMULATI INC INC NG HORMONE TSH COMPUTER- 32252 [facility] AIDED 2 MEDICAL YAZ DETECTION IMAGING ASS SCREENING MAMMOGRAP HY SCREENING G0202 [place] [address] MEDICAL YAZ MAMMOGRAP IMAGING HY KEVIN ASS [...] HOME HLTH/HOSP ICE EA 15 MIN OPHTH 00137 [facility] 2 VISION ANG XM&EVAL COMPRHNSV ESTAB PT 1/> COMPREHEN 92306 CAYETANO AVERYON SIVE 1 [facility] [address] CAYETANO AVERYON THYROID 1 [facility] STIMULATI INC INC NG HORMONE TSH LIPID 42094 CAYETANO CAYETANO PANEL 1 [facility] INC INC DRUG 72758 CAYETANO CAYETANO SCREEN 1 [facility] QUANTITAT INC INC BROOKLYNN PHENYTOIN TOTAL QUANTITAT 00944 CAYETANO MONTEIRO ION DRUG 1 [facility] NOT INC INC ELSEWHERE SPECIFIED COMPREHEN 98094 CAYETANO CAYETANO SIVE 1 [facility] METABOLIC INC INC PANEL BLOOD 17056 CAYETANO MONTEIRO COUNT 1 [facility] COMPLETE INC INC AUTO&AUTO DIFRNTL WBC SELF-CARE 71930 SUPPORT SUPPORT /HOME 1 SOURCE SOURCE MGMT TRAINING EACH 15 MINUTES SELF-CARE 83594 SUPPORT SUPPORT /HOME 1 SOURCE SOURCE MGMT TRAINING EACH 15 MINUTES SELF-CARE 74259 SUPPORT SUPPORT /HOME 1 SOURCE SOURCE MGMT TRAINING EACH 15 MINUTES SELF-CARE 84537 SUPPORT SUPPORT /HOME 1 SOURCE SOURCE MGMT TRAINING EACH 15 MINUTES SELF-CARE 07476 SUPPORT SUPPORT /HOME 1 SOURCE SOURCE MGMT TRAINING EACH 15 MINUTES SELF-CARE 25120 SUPPORT SUPPORT /HOME 1 SOURCE SOURCE MGMT TRAINING EACH 15 MINUTES SELF-CARE 36317 SUPPORT SUPPORT /HOME 1 SOURCE SOURCE MGMT TRAINING EACH 15 MINUTES SELF-CARE 28269 SUPPORT SUPPORT /HOME 1 SOURCE SOURCE MGMT TRAINING EACH 15 MINUTES SELF-CARE 81537 SUPPORT SUPPORT /HOME 1 SOURCE SOURCE MGMT TRAINING EACH 15 MINUTES SELF-CARE 58138 SUPPORT SUPPORT /HOME 1 SOURCE SOURCE MGMT TRAINING EACH 15 MINUTES SELF-CARE 91945 SUPPORT SUPPORT /HOME 1 SOURCE SOURCE MGMT TRAINING EACH 15 MINUTES QUANTITAT 70351 CAYETANO MONTEIRO ION DRUG 1 [facility] NOT INC INC ELSEWHERE SPECIFIED OBSERVATI 11729 FAMILY MULBERRY ON CARE 1 CARE HARRY DISCHARGE ASSOCIATE [facility] G0378 CAYETANO MONTEIRO OBSERVATI 1 [facility] ON INC INC SERVICE PER HOUR BLOOD 04810 CAYETANO MONTEIRO COUNT 1 [facility] COMPLETE INC INC AUTO&AUTO DIFRNTL WBC BASIC 33424 CAYETANO MONTEIRO METABOLIC 1 [facility] PANEL INC INC CALCIUM TOTAL BLOOD 47801 CAYETANO MONTEIRO COUNT 1 [facility] COMPLETE INC INC AUTO&AUTO DIFRNTL WBC URNLS DIP 09716 CAYETANO MONTEIRO 1 [facility] STICK/TAB INC INC LET REAGENT AUTO [facility] G0378 CAYETANO MONTEIRO OBSERVATI 1 [facility] [place] [address] CAYETANO MONTEIRO LIPASE 1 [place] [address] CAYETANO MONTEIRO STREPTOCO 1 [facility] [place] [address] CAYETANO MONTEIRO AMYLASE 1 [facility] INC INC COMPREHEN 47428 CAYETANO MONTEIRO SIVE 1 [facility] METABOLIC INC INC PANEL AMB A0427 [facility] SERVICE 1 AMBULANCE AMBULANCE ALS SERVICE SERVICE EMERGENCY TRANSPORT LEVEL 1 QUANTITAT 55109 CAYETANO MONTEIRO ION DRUG 1 [facility] NOT INC INC ELSEWHERE SPECIFIED INITIAL 00906 FAMILY MULBERRY OBSERVATI 1 CARE HARRY ON ASSOCIATE CARE/DAY S [address] [place] [address] CAYETANO MONTEIRO INFUSION 1 [facility] THERAPY INC [place] [address] CAYETANO MONTEIRO INFUSION 1 [facility] THERAPY/P INC INC ROPHYLAXI S /DX 1ST TO 1 HR GROUND A0425 [facility] MILEAGE 1 AMBULANCE AMBULANCE PER SERVICE SERVICE STATUTE MILE ALS A0398 [facility] ROUTINE 1 AMBULANCE AMBULANCE [place] [address] CAYETANO CAYETANO INFUSION 1 [facility] THERAPY/P INC INC ROPHYLAXI S /DX 1ST [place] [address] CAYETANO AVERYON INFUSION 1 [facility] THERAPY INC [place] [address] [facility] VALENTINE HEAD/BRAI 1 MEDICAL YAZ N W/O IMAGING CONTRAST ASS MATERIAL RADIOLOGI 48824 [facility] VALENTINE C 1 MEDICAL YAZ EXAMINATI IMAGING ON CHEST ASS SINGLE VIEW FRONTAL BLOOD 54365 CAYETANO MONTEIRO COUNT 1 [facility] COMPLETE INC INC AUTO&AUTO DIFRNTL WBC COMPREHEN 34269 CAYETANO MONTEIRO SIVE 1 [facility] METABOLIC INC INC PANEL CREATINE 15874 CAYETANO MONTEIRO KINASE MB 1 [facility] [place] [address] CAYETANO MONTEIRO AMYLASE 1 [place] [address] CAYETANO MONTEIRO LIPASE 1 [facility] INC INC CREATINE 80548 CAYETANO MONTEIRO KINASE 1 [facility] TOTAL INC INC 3D 81561 CARLOS STODDARDUTCHER RENDERING 1 MEDICAL YAZ W/INTERP IMAGING & [place] [address] CAYETANO MONTEIRO TROPONIN 1 [facility] QUANTITAT INC INC BROOKLYNN COMPREHEN 30972 CAYETANO MONTEIRO SIVE 1 [facility] METABOLIC INC INC PANEL BLOOD 77371 CAYETANO MONTEIRO COUNT 1 [facility] COMPLETE INC INC AUTO&AUTO DIFRNTL WBC QUANTITAT 96838 CAYETANO MONTEIRO ION DRUG 1 [facility] NOT INC INC ELSEWHERE SPECIFIED SELF-CARE 26022 SUPPORT SUPPORT /HOME 1 SOURCE SOURCE MGMT TRAINING EACH 15 MINUTES SELF-CARE 74458 SUPPORT SUPPORT /HOME 1 SOURCE SOURCE MGMT TRAINING EACH 15 MINUTES SELF-CARE 60961 SUPPORT SUPPORT /HOME 1 SOURCE SOURCE MGMT TRAINING EACH 15 MINUTES SELF-CARE 53147 SUPPORT SUPPORT /HOME 1 SOURCE SOURCE MGMT TRAINING EACH 15 MINUTES COMPREHEN 58273 CAYETANO MONTEIRO SIVE 1 [facility] [place] [address] CAYETANO MONTEIRO THYROID 1 [facility] STIMULATI INC INC NG HORMONE TSH BLOOD 96293 CAYETANO CAYETANO COUNT 1 [facility] COMPLETE INC INC AUTO&AUTO DIFRNTL WBC LIPID 54488 CAYETANO MONTEIRO PANEL 1 [facility] INC INC DRUG 46343 CAYETANO CAYETANO SCREEN 1 [facility] QUANTITAT INC INC BROOKLYNN PHENYTOIN TOTAL SCREENING G0202 CARLOS STODDARDUTCHER 1 MEDICAL YAZ MAMMOGRAP IMAGING HY KEVIN ASS INCL CAD WHEN PERFORMD COMPUTER- 32893 [facility] STODDARDMEME AIDED 1 MEDICAL YAZ DETECTION IMAGING ASS SCREENING MAMMOGRAP HY DEBRIDEME 34473 KARRIE YOON NT 1 KERI KERI MASTOIDEC JUANCHO CAVITY SIMPLE BLOOD 99831 CAYETANO MONTEIRO COUNT 1 [facility] COMPLETE INC INC AUTO&AUTO DIFRNTL WBC DRUG 29081 CAYETANO MONTEIRO SCREEN 1 [facility] QUANTITAT INC INC BROOKLYNN PHENYTOIN TOTAL BASIC 31674 CAYETANO MONTEIRO METABOLIC 1 [facility] PANEL INC INC CALCIUM TOTAL AMBULANCE A0429 [facility] SERVICE 1 AMBULANCE AMBULANCE BLS SERVICE SERVICE EMERGENCY TRANSPORT GROUND A0425 [facility]UL[facility] [place] [address] CAYETANO MONTEIRO THYROID 1 [facility] STIMULATI INC INC NG HORMONE TSH DRUG 38275 CAYETANO CAYETANO SCREEN 1 [facility] QUANTITAT INC INC BROOKLYNN PHENYTOIN TOTAL SELF-CARE 16998 SUPPORT SUPPORT /HOME 0 SOURCE SOURCE MGMT TRAINING EACH 15 MINUTES SELF-CARE 88913 SUPPORT SUPPORT /HOME 0 SOURCE SOURCE MGMT TRAINING EACH 15 MINUTES SELF-CARE 37281 SUPPORT SUPPORT /HOME 0 SOURCE SOURCE MGMT TRAINING EACH 15 MINUTES SELF-CARE 50341 SUPPORT SUPPORT /HOME 0 SOURCE SOURCE MGMT TRAINING EACH 15 MINUTES SELF-CARE 18715 SUPPORT SUPPORT /HOME 0 SOURCE SOURCE MGMT TRAINING EACH 15 MINUTES DEBRIDEME 15074 YOON YOON NT 0 KERI KERI MASTOIDEC JUANCHO CAVITY SIMPLE SELF-CARE 77171 SUPPORT SUPPORT /HOME 0 SOURCE SOURCE MGMT TRAINING EACH 15 MINUTES SELF-CARE 80270 SUPPORT SUPPORT /HOME 0 SOURCE SOURCE MGMT TRAINING EACH 15 MINUTES SELF-CARE 45048 SUPPORT SUPPORT /HOME 0 SOURCE SOURCE MGMT TRAINING EACH 15 MINUTES SELF-CARE 25924 SUPPORT SUPPORT /HOME 0 SOURCE SOURCE MGMT TRAINING EACH 15 MINUTES SELF-CARE 83474 SUPPORT SUPPORT /HOME 0 SOURCE SOURCE MGMT TRAINING EACH 15 MINUTES BASIC 47969 CAYETANO AVERYON METABOLIC 0 [facility] PANEL INC INC CALCIUM TOTAL 3D 00630 CAYETANO AVERYON RENDERING 0 [facility] W/INTERP INC INC & POSTPROCE SS SUPERVISI ON DRUG 66242 CAYETANO CAYETANO SCREEN 0 [facility] QUANTITAT INC INC BROOKLYNN PHENYTOIN TOTAL BLOOD 32048 CAYETANO MONTEIRO COUNT 0 [facility] COMPLETE INC INC AUTO&[place] [address] CARLOS STODDARDUTCHER HEAD/BRAI 0 MEDICAL YAZ N W/O IMAGING CONTRAST ASS MATERIAL SELF-CARE 21979 SUPPORT SUPPORT /HOME 0 SOURCE SOURCE MGMT TRAINING EACH 15 MINUTES SELF-CARE 51730 SUPPORT SUPPORT /HOME 0 SOURCE SOURCE MGMT TRAINING EACH 15 MINUTES SELF-CARE 34827 SUPPORT SUPPORT /HOME 0 SOURCE SOURCE MGMT TRAINING EACH 15 MINUTES SELF-CARE 77744 SUPPORT SUPPORT /HOME 0 SOURCE SOURCE MGMT TRAINING EACH 15 MINUTES SELF-CARE 84878 SUPPORT SUPPORT /HOME 0 SOURCE SOURCE MGMT TRAINING EACH 15 MINUTES SELF-CARE 71359 SUPPORT SUPPORT /HOME 0 SOURCE SOURCE MGMT TRAINING EACH 15 MINUTES SELF-CARE 21028 SUPPORT SUPPORT /HOME 0 SOURCE SOURCE MGMT TRAINING EACH 15 MINUTES SELF-CARE 64351 SUPPORT SUPPORT /HOME 0 SOURCE SOURCE MGMT TRAINING EACH 15 MINUTES SELF-CARE 06946 SUPPORT SUPPORT /HOME 0 SOURCE SOURCE MGMT TRAINING EACH 15 MINUTES SELF-CARE 03972 SUPPORT SUPPORT /HOME 0 SOURCE SOURCE MGMT TRAINING EACH 15 MINUTES SELF-CARE 67829 SUPPORT SUPPORT /HOME 0 SOURCE SOURCE MGMT TRAINING EACH 15 MINUTES SELF-CARE 52263 SUPPORT SUPPORT /HOME 0 SOURCE SOURCE MGMT TRAINING EACH 15 MINUTES SELF-CARE 36025 SUPPORT SUPPORT /HOME 0 SOURCE SOURCE MGMT TRAINING EACH 15 MINUTES SELF-CARE 30958 SUPPORT SUPPORT /HOME 0 SOURCE SOURCE MGMT TRAINING EACH 15 MINUTES SELF-CARE 40926 SUPPORT SUPPORT /HOME 0 SOURCE SOURCE MGMT TRAINING EACH 15 MINUTES DEBRIDEME 57065 KARRIE YOON NT 0 KERI KERI MASTOIDEC JUAN[facility] CAVITY SIMPLE MICROSURG 24385 KARRIE YOON TQS REQ 0 KERI KEIR USE OPERATING MICROSCOP E SELF-CARE 88135 SUPPORT SUPPORT /HOME 0 SOURCE SOURCE MGMT TRAINING EACH 15 MINUTES SELF-CARE 75677 SUPPORT SUPPORT /HOME 0 SOURCE SOURCE MGMT TRAINING EACH 15 MINUTES SELF-CARE 70562 SUPPORT SUPPORT /HOME 0 SOURCE SOURCE MGMT TRAINING EACH 15 MINUTES SELF-CARE 78785 SUPPORT SUPPORT /HOME 0 SOURCE SOURCE MGMT TRAINING EACH 15 MINUTES SELF-CARE 65775 SUPPORT SUPPORT /HOME 0 SOURCE SOURCE MGMT TRAINING EACH 15 MINUTES SELF-CARE 14400 SUPPORT SUPPORT /HOME 0 SOURCE SOURCE MGMT TRAINING EACH 15 MINUTES SELF-CARE 22069 SUPPORT SUPPORT /HOME 0 SOURCE SOURCE MGMT TRAINING EACH 15 MINUTES SELF-CARE 96172 SUPPORT SUPPORT /HOME 0 SOURCE SOURCE MGMT TRAINING [place]ACH [place] [address] [facility] TH[facility]ID 0 [facility] STIMULATI [facility] INC NG HORMONE TSH DRUG 32894 [facility] SCREEN 0 [facility] QUANTITAT INC INC BROOKLYNN PHENYTOIN TOTAL SELF-CARE 22072 SUPPORT SUPPORT /HOME 0 SOURCE SOURCE MGMT TRAINING EACH 15 MINUTES SELF-CARE 33924 SUPPORT SUPPORT /HOME 0 SOURCE SOURCE MGMT TRAINING EACH 15 MINUTES SELF-CARE 71201 SUPPORT SUPPORT /HOME 0 SOURCE SOURCE MGMT TRAINING EACH 15 MINUTES SELF-CARE 19559 SUPPORT SUPPORT /HOME 0 SOURCE SOURCE MGMT TRAINING EACH 15 MINUTES SELF-CARE 17410 SUPPORT SUPPORT /HOME 0 SOURCE SOURCE MGMT TRAINING EACH 15 MINUTES SELF-CARE 56241 SUPPORT SUPPORT /HOME 0 SOURCE SOURCE MGMT TRAINING EACH 15 MINUTES SELF-CARE 98438 SUPPORT SUPPORT /HOME 0 SOURCE SOURCE MGMT TRAINING EACH 15 MINUTES SELF-CARE 30685 SUPPORT SUPPORT /HOME 0 SOURCE SOURCE MGMT TRAINING EACH 15 MINUTES SELF-CARE 85579 SUPPORT SUPPORT /HOME 0 SOURCE SOURCE MGMT TRAINING EACH 15 MINUTES SELF-CARE 12910 SUPPORT SUPPORT /HOME 0 SOURCE SOURCE MGMT TRAINING EACH 15 MINUTES SELF-CARE 47533 SUPPORT SUPPORT /HOME 0 SOURCE SOURCE MGMT TRAINING EACH 15 MINUTES SELF-CARE 62830 SUPPORT SUPPORT /HOME 0 SOURCE SOURCE MGMT TRAINING EACH 15 MINUTES SELF-CARE 87198 SUPPORT SUPPORT /HOME 0 SOURCE SOURCE MGMT TRAINING EACH 15 MINUTES SELF-CARE 94956 SUPPORT SUPPORT /HOME 0 SOURCE SOURCE MGMT TRAINING EACH 15 MINUTES SELF-CARE 87425 SUPPORT SUPPORT /HOME 0 SOURCE SOURCE MGMT TRAINING EACH 15 MINUTES SELF-CARE 80430 SUPPORT SUPPORT /HOME 0 SOURCE SOURCE MGMT TRAINING EACH 15 MINUTES SELF-CARE 91069 SUPPORT SUPPORT /HOME 0 SOURCE SOURCE MGMT TRAINING EACH 15 MINUTES DRUG 66636 [facility] BR[facility] PHENYTOIN TOTAL GROUND A0425 [facility] MILEAGE 0 AMBULANCE AMBULANCE PER SERVICE SERVICE STATUTE MILE AMBULANCE [id number] [facility] SERVICE 0 AMBULANCE AMBULANCE BLS SERVICE SERVICE EMERGENCY TRANSPORT SELF-CARE 01955 SUPPORT SUPPORT /HOME 0 SOURCE SOURCE MGMT TRAINING EACH 15 MINUTES SELF-CARE 95744 SUPPORT SUPPORT /HOME 0 SOURCE SOURCE MGMT TRAINING EACH 15 MINUTES SELF-CARE 97935 SUPPORT SUPPORT /HOME 0 SOURCE SOURCE MGMT TRAINING EACH 15 MINUTES SELF-CARE 17123 SUPPORT SUPPORT /HOME 0 SOURCE SOURCE MGMT TRAINING EACH 15 MINUTES SELF-CARE 90577 SUPPORT SUPPORT /HOME 0 SOURCE SOURCE MGMT TRAINING EACH 15 MINUTES SELF-CARE 09643 SUPPORT SUPPORT /HOME 0 SOURCE SOURCE MGMT TRAINING EACH 15 MINUTES SELF-CARE 69422 SUPPORT SUPPORT /HOME 0 SOURCE SOURCE MGMT TRAINING EACH 15 MINUTES SELF-CARE 76825 SUPPORT SUPPORT /HOME 0 SOURCE SOURCE MGMT TRAINING EACH 15 MINUTES SELF-CARE 63397 SUPPORT SUPPORT /HOME 0 SOURCE SOURCE MGMT TRAINING EACH 15 MINUTES SELF-CARE 44758 SUPPORT SUPPORT /HOME 0 SOURCE SOURCE MGMT TRAINING EACH 15 MINUTES SELF-CARE 06386 SUPPORT SUPPORT /HOME 0 SOURCE SOURCE MGMT TRAINING EACH 15 MINUTES SELF-CARE 36617 SUPPORT SUPPORT /HOME 0 SOURCE SOURCE MGMT TRAINING EACH 15 MINUTES SELF-CARE 63419 SUPPORT SUPPORT /HOME 0 SOURCE SOURCE MGMT TRAINING EACH 15 MINUTES SELF-CARE 92025 SUPPORT SUPPORT /HOME 0 SOURCE SOURCE MGMT TRAINING EACH 15 MINUTES SELF-CARE 28119 SUPPORT SUPPORT /HOME 0 SOURCE SOURCE MGMT TRAINING EACH 15 MINUTES SELF-CARE 50362 SUPPORT SUPPORT /HOME 0 SOURCE SOURCE MGMT TRAINING EACH 15 MINUTES SELF-CARE 43839 SUPPORT SUPPORT /HOME 0 SOURCE SOURCE MGMT TRAINING EACH 15 MINUTES SELF-CARE 92377 SUPPORT SUPPORT /HOME 0 SOURCE SOURCE MGMT TRAINING EACH 15 MINUTES SELF-CARE 60047 SUPPORT SUPPORT /HOME 0 SOURCE SOURCE MGMT TRAINING EACH 15 MINUTES SELF-CARE 53875 SUPPORT SUPPORT /HOME 0 SOURCE SOURCE MGMT TRAINING EACH 15 MINUTES SELF-CARE 69457 SUPPORT SUPPORT /HOME 0 SOURCE SOURCE MGMT TRAINING EACH 15 MINUTES SELF-CARE 24304 SUPPORT SUPPORT /HOME 0 SOURCE SOURCE MGMT TRAINING EACH 15 MINUTES SELF-CARE 87843 SUPPORT SUPPORT /HOME 0 SOURCE SOURCE MGMT TRAINING EACH 15 MINUTES SELF-CARE 91053 SUPPORT SUPPORT /HOME 0 SOURCE SOURCE MGMT TRAINING EACH 15 MINUTES SELF-CARE 22374 SUPPORT SUPPORT /HOME 0 SOURCE SOURCE MGMT TRAINING EACH 15 MINUTES SELF-CARE 12121 SUPPORT SUPPORT /HOME 0 SOURCE SOURCE MGMT TRAINING EACH 15 MINUTES SELF-CARE 86539 SUPPORT SUPPORT /HOME 0 SOURCE SOURCE MGMT TRAINING EACH 15 MINUTES SELF-CARE 66899 SUPPORT SUPPORT /HOME 0 SOURCE SOURCE MGMT TRAINING EACH 15 MINUTES SELF-CARE 88160 SUPPORT SUPPORT /HOME 0 SOURCE SOURCE MGMT TRAINING EACH 15 MINUTES SELF-CARE 29376 SUPPORT SUPPORT /HOME 0 SOURCE SOURCE MGMT TRAINING EACH 15 MINUTES SELF-CARE 44530 SUPPORT SUPPORT /HOME 0 SOURCE SOURCE MGMT TRAINING EACH 15 MINUTES SELF-CARE 71557 SUPPORT SUPPORT /HOME 0 SOURCE SOURCE MGMT TRAINING EACH 15 MINUTES SELF-CARE 40441 SUPPORT SUPPORT /HOME 0 SOURCE SOURCE MGMT TRAINING EACH 15 MINUTES SELF-CARE 68885 SUPPORT SUPPORT /HOME 0 SOURCE SOURCE MGMT TRAINING EACH 15 MINUTES SELF-CARE 46449 SUPPORT SUPPORT /HOME 0 SOURCE SOURCE MGMT TRAINING EACH 15 MINUTES SELF-CARE 10815 SUPPORT SUPPORT /HOME 0 SOURCE SOURCE MGMT TRAINING EACH 15 MINUTES SELF-CARE 77450 SUPPORT SUPPORT /HOME 0 SOURCE SOURCE MGMT TRAINING EACH 15 MINUTES SELF-CARE 66507 SUPPORT SUPPORT /HOME 0 SOURCE SOURCE MGMT TRAINING EACH 15 MINUTES DRUG 01455 CAYETANO [facility]O [facility]EN [facility] QUANTITAT INC INC BROOKLYNN PHENYTOIN TOTAL SELF-CARE 72047 SUPPORT SUPPORT /HOME 0 SOURCE SOURCE MGMT TRAINING EACH 15 MINUTES BLOOD 56716 CAYETANO MONTEIRO COUNT 0 [facility] COMPLETE INC INC AUTO&[place] [address] CAYETANO MONTEIR[facility] THYROID 0 [facility] STIMULATI INC INC NG HORMONE TSH COMPREHEN 40573 CAYETANO MONTEIRO SIVE 0 [facility] METABOLIC INC INC PANEL SELF-CARE 93031 SUPPORT SUPPORT /HOME 0 SOURCE SOURCE MGMT TRAINING EACH 15 MINUTES SELF-CARE 69411 SUPPORT SUPPORT /HOME 0 SOURCE SOURCE MGMT TRAINING EACH 15 MINUTES SELF-CARE 49277 SUPPORT SUPPORT /HOME 0 SOURCE SOURCE MGMT TRAINING EACH 15 MINUTES DEBRIDEME 33041 KARRIE YOON, NT 0 KRISTI G KRISTI G MASTOIDEC JUANCHO CAVITY SIMPLE SELF-CARE 47330 SUPPORT SUPPORT /HOME 0 SOURCE SOURCE MGMT TRAINING EACH 15 MINUTES SELF-CARE 86262 SUPPORT SUPPORT /HOME 0 SOURCE SOURCE MGMT TRAINING EACH 15 MINUTES SELF-CARE 27539 SUPPORT SUPPORT /HOME 0 SOURCE SOURCE MGMT TRAINING EACH 15 MINUTES SELF-CARE 99583 SUPPORT SUPPORT /HOME 0 SOURCE SOURCE MGMT TRAINING EACH 15 MINUTES SELF-CARE 35721 SUPPORT SUPPORT /HOME 0 SOURCE SOURCE MGMT TRAINING EACH 15 MINUTES SELF-CARE 83181 SUPPORT SUPPORT /HOME 0 SOURCE SOURCE MGMT TRAINING EACH 15 MINUTES SELF-CARE 02712 SUPPORT SUPPORT /HOME 0 SOURCE SOURCE MGMT TRAINING EACH 15 MINUTES SELF-CARE 67079 SUPPORT SUPPORT /HOME 0 SOURCE SOURCE MGMT TRAINING EACH 15 MINUTES SELF-CARE 42477 SUPPORT SUPPORT /HOME 0 SOURCE SOURCE MGMT TRAINING EACH 15 MINUTES SELF-CARE 42371 SUPPORT SUPPORT /HOME 0 SOURCE SOURCE MGMT TRAINING EACH 15 MINUTES SELF-CARE 67593 SUPPORT SUPPORT /HOME 0 SOURCE SOURCE MGMT TRAINING EACH 15 MINUTES SELF-CARE 90164 SUPPORT SUPPORT /HOME 0 SOURCE SOURCE MGMT TRAINING EACH 15 MINUTES SELF-CARE 01783 SUPPORT SUPPORT /HOME 0 SOURCE SOURCE MGMT TRAINING EACH 15 MINUTES SELF-CARE 07454 SUPPORT SUPPORT /HOME 0 SOURCE SOURCE MGMT TRAINING EACH 15 MINUTES SELF-CARE 00516 SUPPORT SUPPORT /HOME 0 SOURCE SOURCE MGMT TRAINING EACH 15 MINUTES SELF-CARE 54187 SUPPORT SUPPORT /HOME 0 SOURCE SOURCE MGMT TRAINING EACH 15 MINUTES SELF-CARE 09227 SUPPORT SUPPORT /HOME 0 SOURCE SOURCE MGMT TRAINING EACH 15 MINUTES SELF-CARE 63800 SUPPORT SUPPORT /HOME 0 SOURCE SOURCE MGMT TRAINING EACH 15 MINUTES SELF-CARE 32701 SUPPORT SUPPORT /HOME 0 SOURCE SOURCE MGMT TRAINING EACH 15 MINUTES SELF-CARE 28340 SUPPORT SUPPORT /HOME 0 SOURCE SOURCE MGMT TRAINING EACH 15 MINUTES SELF-CARE 18023 SUPPORT SUPPORT /HOME 0 SOURCE SOURCE MGMT TRAINING EACH 15 MINUTES [facility] 82060 GERMAIN HOWARD, MEDICAL 0 VISION [place] A XM&ANGEAL COMPRHNSV ESTAB PT 1/> SELF-CARE 99286 SUPPORT SUPPORT /HOME 0 SOURCE SOURCE MGMT TRAINING EACH 15 MINUTES SELF-CARE 11421 SUPPORT SUPPORT /HOME 0 SOURCE SOURCE MGMT TRAINING EACH 15 MINUTES SELF-CARE 47160 SUPPORT SUPPORT /HOME 0 SOURCE SOURCE MGMT TRAINING EACH 15 MINUTES SELF-CARE 73597 SUPPORT SUPPORT /HOME 0 SOURCE SOURCE MGMT TRAINING EACH 15 MINUTES SELF-CARE 10079 SUPPORT SUPPORT /HOME 0 SOURCE SOURCE MGMT TRAINING EACH 15 MINUTES SELF-CARE 87074 SUPPORT SUPPORT /HOME 0 SOURCE SOURCE MGMT TRAINING EACH 15 MINUTES SELF-CARE 99940 SUPPORT SUPPORT /HOME 0 SOURCE SOURCE MGMT TRAINING EACH 15 MINUTES SELF-CARE 35924 SUPPORT SUPPORT /HOME 0 SOURCE SOURCE MGMT TRAINING EACH 15 MINUTES SELF-CARE 33273 SUPPORT SUPPORT /HOME 0 SOURCE SOURCE MGMT TRAINING EACH 15 MINUTES SELF-CARE 40621 SUPPORT SUPPORT /HOME 0 SOURCE SOURCE MGMT TRAINING EACH 15 MINUTES SELF-CARE 53105 SUPPORT SUPPORT /HOME 0 SOURCE SOURCE MGMT TRAINING EACH 15 MINUTES SELF-CARE 00246 SUPPORT SUPPORT /HOME 0 SOURCE SOURCE MGMT TRAINING EACH 15 MINUTES COMPRE 93553 KARRIE YOON, AUDIOMETR 0 KRISTI Akhtar Y THRESHOLD EVAL SP RECOGNIJ TYMPANOME 10750 KARRIE YOON, TRY 0 KRISTI BERRY G SELF-CARE 93908 SUPPORT SUPPORT /HOME 0 SOURCE SOURCE MGMT TRAINING EACH 15 MINUTES SELF-CARE 09347 SUPPORT SUPPORT /HOME 0 SOURCE SOURCE MGMT TRAINING EACH 15 MINUTES SELF-CARE 52931 SUPPORT SUPPORT /HOME 0 SOURCE SOURCE MGMT TRAINING EACH 15 MINUTES SELF-CARE 92877 SUPPORT SUPPORT /HOME 0 SOURCE SOURCE MGMT TRAINING EACH 15 MINUTES SELF-CARE 75128 SUPPORT SUPPORT /HOME 0 SOURCE SOURCE MGMT TRAINING EACH 15 MINUTES SELF-CARE 26866 SUPPORT SUPPORT /HOME 0 SOURCE SOURCE MGMT TRAINING EACH 15 MINUTES SELF-CARE 28001 SUPPORT SUPPORT /HOME 0 SOURCE SOURCE MGMT TRAINING EACH 15 [place] [address] CAYETANO [facility]ROID 0 [facility] STIMULATI [place] [address] CAYETANO MONTEIRO FREE 0 [facility] THYROXINE INC INC BLOOD 90274 CAYETANO MONTEIRO COUNT 0 [facility] COMPLETE INC INC AUTO&AUTO DIFRNTL WBC SELF-CARE 69485 SUPPORT SUPPORT /HOME 0 SOURCE SOURCE MGMT TRAINING EACH 15 MINUTES SELF-CARE 61784 SUPPORT SUPPORT /HOME 0 SOURCE SOURCE MGMT TRAINING EACH 15 MINUTES SELF-CARE 08562 SUPPORT SUPPORT /HOME 0 SOURCE SOURCE MGMT TRAINING EACH 15 MINUTES SELF-CARE 54801 SUPPORT SUPPORT /HOME 0 SOURCE SOURCE MGMT TRAINING EACH 15 MINUTES SELF-CARE 88675 SUPPORT SUPPORT /HOME 0 SOURCE SOURCE MGMT TRAINING EACH 15 MINUTES SELF-CARE 19418 SUPPORT SUPPORT /HOME 0 SOURCE SOURCE MGMT TRAINING EACH 15 MINUTES SELF-CARE 17785 SUPPORT SUPPORT /HOME 0 SOURCE SOURCE MGMT TRAINING EACH 15 MINUTES SELF-CARE 82522 SUPPORT SUPPORT /HOME 0 SOURCE SOURCE MGMT TRAINING EACH 15 MINUTES SELF-CARE 93942 SUPPORT SUPPORT /HOME 0 SOURCE SOURCE MGMT TRAINING EACH 15 MINUTES 3D 30162 CARLOS VALENTINE, RENDERING 0 MEDICAL STEPHANI IMAGING W/INTERP& ASSOCIATE POSTPROC S DIFF WORK STATION CT ORBIT 58577 CARLOS VALENTINE, SELLA/POS 0 MEDICAL STEPHANI T IMAGING FOSSA/EAR ASSOCIATE W/[place] [address] CARLOS VALENTINE, MAXILLOFA 0 MEDICAL STEPHANI CIAL W/O IMAGING CONTRAST ASSOCIATE MATERIAL S SELF-CARE 42174 SUPPORT SUPPORT /HOME 0 SOURCE SOURCE MGMT TRAINING EACH 15 MINUTES SELF-CARE 70375 SUPPORT SUPPORT /HOME 0 SOURCE SOURCE MGMT TRAINING EACH 15 MINUTES SELF-CARE 14558 SUPPORT SUPPORT /HOME 0 SOURCE SOURCE MGMT TRAINING EACH 15 MINUTES SELF-CARE 23586 SUPPORT SUPPORT /HOME 0 SOURCE SOURCE MGMT TRAINING EACH 15 MINUTES SELF-CARE 38982 SUPPORT SUPPORT /HOME 0 SOURCE SOURCE MGMT TRAINING EACH 15 MINUTES SELF-CARE 49212 SUPPORT SUPPORT /HOME 0 SOURCE SOURCE MGMT TRAINING EACH 15 MINUTES SELF-CARE 89557 SUPPORT SUPPORT /HOME 0 SOURCE SOURCE MGMT TRAINING EACH 15 MINUTES SELF-CARE 54523 SUPPORT SUPPORT /HOME 0 SOURCE SOURCE MGMT TRAINING EACH 15 MINUTES SELF-CARE 24063 SUPPORT SUPPORT /HOME 0 SOURCE SOURCE MGMT TRAINING EACH 15 MINUTES SELF-CARE 34759 SUPPORT SUPPORT /HOME 0 SOURCE SOURCE MGMT TRAINING EACH 15 MINUTES SELF-CARE 86360 SUPPORT SUPPORT /HOME 0 SOURCE SOURCE MGMT TRAINING EACH 15 MINUTES SELF-CARE 49332 SUPPORT SUPPORT /HOME 0 SOURCE SOURCE MGMT TRAINING EACH 15 MINUTES SELF-CARE 69985 SUPPORT SUPPORT /HOME 0 SOURCE SOURCE MGMT TRAINING EACH 15 MINUTES SELF-CARE 67155 SUPPORT SUPPORT /HOME 0 SOURCE SOURCE MGMT TRAINING EACH 15 MINUTES SCREENING 27224 CARLOS EASONCHER, 0 MEDICAL STEPHANI MAMMOGRAP IMAGING HY ASSOCIATE BILATERAL S COMPUTER- 08955 CARLOS MEME, AIDED 0 MEDICAL STEPHANI DETECTION IMAGING ASSOCIATE SCREENING S MAMMOGRAP HY CYTP 44853 [facility] CERV/VAG MNL SCRN PHYSICIAN SUPV BLOOD 90403 HANKS, HANKS, OCCULT 0 DON R DON R PEROXIDAS E ACTV QUAL FECES 1 DETER SELF-CARE 21977 SUPPORT SUPPORT /HOME 0 SOURCE SOURCE MGMT TRAINING EACH 15 MINUTES SELF-CARE 06948 SUPPORT SUPPORT /HOME 0 SOURCE SOURCE MGMT TRAINING EACH 15 MINUTES SELF-CARE 04317 SUPPORT SUPPORT /HOME 0 SOURCE SOURCE MGMT TRAINING EACH 15 MINUTES SELF-CARE 74238 SUPPORT SUPPORT /HOME 0 SOURCE SOURCE MGMT TRAINING EACH 15 MINUTES SELF-CARE 35848 SUPPORT SUPPORT /HOME 0 SOURCE SOURCE MGMT TRAINING EACH 15 MINUTES SELF-CARE 48156 SUPPORT SUPPORT /HOME 0 SOURCE SOURCE MGMT TRAINING EACH 15 MINUTES SELF-CARE 26617 SUPPORT SUPPORT /HOME 0 SOURCE SOURCE MGMT TRAINING EACH 15 MINUTES SELF-CARE 25850 SUPPORT SUPPORT /HOME 0 SOURCE SOURCE MGMT TRAINING EACH 15 MINUTES SELF-CARE 93377 SUPPORT SUPPORT /HOME 0 SOURCE SOURCE MGMT TRAINING EACH 15 MINUTES SELF-CARE 00624 SUPPORT SUPPORT /HOME 0 SOURCE SOURCE MGMT TRAINING EACH 15 MINUTES SELF-CARE 07777 SUPPORT SUPPORT /HOME 0 SOURCE SOURCE MGMT TRAINING EACH 15 MINUTES SELF-CARE 82385 SUPPORT SUPPORT /HOME 0 SOURCE SOURCE MGMT TRAINING EACH 15 MINUTES SELF-CARE 18461 SUPPORT SUPPORT /HOME 0 SOURCE SOURCE MGMT TRAINING EACH 15 MINUTES SELF-CARE 59854 SUPPORT SUPPORT /HOME 0 SOURCE SOURCE MGMT TRAINING EACH 15 MINUTES SELF-CARE 99160 SUPPORT SUPPORT /HOME 0 SOURCE SOURCE MGMT TRAINING EACH 15 MINUTES SELF-CARE 41960 SUPPORT SUPPORT /HOME 0 SOURCE SOURCE MGMT TRAINING EACH 15 MINUTES SELF-CARE 01850 SUPPORT SUPPORT /HOME 0 SOURCE SOURCE MGMT TRAINING EACH 15 MINUTES [facility] E0601 DEBORAH CABRERA S 0 HOME MED HOME MED POSITIVE EQUIP. EQUIP. AIRWAY [facility] PRESSURE DEVICE SELF-CARE 62994 SUPPORT SUPPORT /HOME 0 SOURCE SOURCE MGMT TRAINING EACH 15 MINUTES SELF-CARE 00998 SUPPORT SUPPORT /HOME 0 SOURCE SOURCE MGMT TRAINING EACH 15 MINUTES SELF-CARE 39024 SUPPORT SUPPORT /HOME 0 SOURCE SOURCE MGMT TRAINING EACH 15 MINUTES DRUG 96410 CAYETANO MON[facility]IRO [facility] QUANTITAT INC [place] [address] CAYETANO MONTEIRO THYROID 0 [facility] STIMULATI INC INC NG HORMONE TSH SUSCEPTIB 49716 CAYETANO MONTEIRO LTY STDY 0 [facility] ANTIMICRB INC INC IAL MICRO/AGA R DILUTJ URNLS DIP 18932 CAYETANO MONTEIRO 0 [facility] STICK/TAB INC INC LET REAGENT AUTO MICROSCOP Y BLOOD 91613 CAYETANO MONTEIRO COUNT 0 [facility] COMPLETE INC INC AUTO&AUTO DIFRNTL WBC CULTURE 98960 CAYETANO MONTEIRO BACTERIAL 0 [facility] INC INC QUANTTATI VE COLONY COUNT URINE CULTURE 77095 CAYETANO MONTEIRO BCT 0 [facility] ISOL&PRSM INC INC PTV ID ISOLATE EA URINE BASIC 53683 CAYETANO MONTEIRO METABOLIC 0 [facility] PANEL INC INC CALCIUM TOTAL DRUG 67808 CAYETANO MONTEIRO SCREEN 0 [facility] QUANTITAT INC INC BROOKLYNN PHENYTOIN TOTAL AMB A0422 [facility] OXYGEN&O2 0 AMBULANCE AMBULANCE SUPPLIES SERVICE SERVICE LIFE SUSTAININ G SITUATION AMB A0427 [facility] SERVICE 0 AMBULANCE AMBULANCE ALS SERVICE SERVICE EMERGENCY TRANSPORT LEVEL 1 GROUND A0425 [facility] MILEAGE 0 AMBULANCE AMBULANCE PER SERVICE SERVICE STATUTE MILE MANUAL 19967 CAYETANO MONTEIRO THERAPY 0 [facility] TQS 1/> INC INC REGIONS EACH 15 MINUTES THERAPEUT 15912 CAYETANO MONTEIRO IC PX 1/> 0 [facility] AREAS INC INC EACH 15 MIN EXERCISES THERAPEUT 85908 CAYETANO MONTEIRO IC PX 1/> 0 [facility] AREAS INC INC EACH 15 MIN EXERCISES MANUAL 97746 CAYETANO MONTEIRO THERAPY 0 [facility] TQS 1/> INC INC REGIONS EACH 15 MINUTES APPLICATI 43830 CAYETANO MONTEIRO ON 0 [facility] MODALITY INC INC 1/> AREAS HOT/COLD PACKS APPLICATI 01278 CAYETANO MONTEIRO ON 0 [facility] MODALITY INC INC 1/> AREAS HOT/COLD PACKS MANUAL 22146 CAYETANO MONTEIRO THERAPY 0 [facility] TQS 1/> INC INC REGIONS EACH 15 MINUTES THERAPEUT 93477 CAYETANO MONTEIRO IC PX 1/> 0 [facility] AREAS INC INC EACH 15 MIN EXERCISES THERAPEUT 07475 CAYETANO MONTEIRO IC PX 1/> 0 [facility] AREAS INC INC EACH 15 MIN EXERCISES APPLICATI 51883 CAYETANO MONTEIRO ON 0 [facility] MODALITY INC INC 1/> AREAS HOT/COLD PACKS MANUAL 80018 CAYETANO MONTEIRO THERAPY 0 [facility] TQS 1/> INC INC REGIONS EACH 15 MINUTES MANUAL 90696 CAYETANO MONTEIRO THERAPY 0 [facility] TQS 1/> INC INC REGIONS EACH 15 MINUTES APPLICATI 76964 CAYETANO MONTEIRO ON 0 [facility] MODALITY INC INC 1/> AREAS HOT/COLD PACKS THERAPEUT 95536 CAYETANO MONTEIRO IC PX 1/> 0 MEM [...] MED HOME MED DISPBL EQUIP. EQUIP. USED [facility] W/POS ARWAY PRESS DEVICE TUBING A7037 DEBORAH CHEUNGRELL USED WITH 0 HOME MED HOME MED POSITIVE EQUIP. EQUIP. AIRWAY [facility] PRESSURE DEVICE MANUAL 09628 CAYETANO MONTEIRO THERAPY 0 [facility] TQS 1/> INC INC REGIONS EACH 15 MINUTES THERAPEUT 21815 CAYETANO MONTEIRO IC PX 1/> 0 [facility] AREAS INC INC EACH 15 MIN EXERCISES APPLICATI 38553 CAYETANO MONTEIRO ON 0 [facility] MODALITY INC INC 1/> AREAS HOT/COLD PACKS APPLICATI 49964 CAYETANO MONTEIRO ON 0 [facility] MODALITY INC INC 1/> AREAS HOT/COLD PACKS MEDICAL 47124 CAYETANO MONTEIRO NUTRITION 0 [facility] ASSMT&IVN TJ INDIV EACH 15 AL THERAPEUT 18713 CAYETANO MONTEIRO IC PX 1/> 0 [facility] AREAS INC INC EACH 15 MIN EXERCISES APPL 96626 CAYETANO MONTEIRO MODALITY 0 [facility] 1/> AREAS INC INC ELEC STIMJ UNATTENDE D MANUAL 58821 CAYETANO MONTEIRO THERAPY 0 [facility] TQS 1/> INC INC REGIONS EACH 15 MINUTES RADEX 65589 [facility], WRIST 2 0 ALLAN VALENTE IMAGING ASSOCIATE S MANUAL 43413 CAYETANO MONTEIRO THERAPY 0 [facility] TQS 1/> INC INC REGIONS EACH 15 MINUTES THERAPEUT 07615 CAYETANO MONTEIRO IC PX 1/> 0 [facility] AREAS INC INC EACH 15 MIN EXERCISES APPLICATI 42764 CAYETANO MONTEIRO ON 0 [facility] MODALITY INC INC 1/> AREAS HOT/COLD PACKS APPLICATI 34376 CAYETANO MONTEIRO ON 0 [facility] MODALITY INC INC 1/> AREAS HOT/COLD PACKS PHYSICAL 23708 CAYETANO MONTEIRO THERAPY 0 [facility] RE-EVALUA INC INC TION THERAPEUT 84834 CAYETANO MONTEIRO IC PX 1/> 0 [facility] AREAS INC INC EACH 15 MIN EXERCISES APPL 52497 CAYETANO MONTEIRO MODALITY 0 [facility] 1/> AREAS INC INC PARAFFIN BATH MANUAL 63490 CAYETANO MONTEIRO THERAPY 0 [facility] TQS 1/> INC INC REGIONS EACH 15 MINUTES MANUAL 71248 CAYETANO CAYETANO THERAPY 0 [facility] TQS 1/> INC INC REGIONS EACH 15 MINUTES APPL 75985 CAYETANO MONTEIRO MODALITY 0 [facility] 1/> AREAS INC INC PARAFFIN BATH THERAPEUT 71221 CAYETANO CAYETANO IC PX 1/> 0 [facility] AREAS INC INC EACH 15 MIN EXERCISES THERAPEUT 66871 CAYETANO MONTEIRO IC PX 1/> 9 [facility] AREAS INC INC EACH 15 MIN EXERCISES APPL 34135 CAYETANO MONTEIRO MODALITY 9 [facility] 1/> AREAS INC INC PARAFFIN BATH APPL 05550 CAYETANO MONTEIRO MODALITY 9 [facility] 1/> AREAS INC INC ELEC STIMJ UNATTENDE D APPLICATI 19881 CAYETANO MONTEIRO ON 9 [facility] MODALITY INC INC 1/> AREAS HOT/COLD PACKS MANUAL 63674 CAYETANO MONTEIRO THERAPY 9 [facility] TQS 1/> INC INC REGIONS EACH 15 MINUTES MANUAL 52454 CAYETANO MONTEIRO THERAPY 9 [facility] TQS 1/> INC INC REGIONS EACH 15 MINUTES APPLICATI 96534 CAYETANO MONTEIRO ON 9 [facility] MODALITY INC INC 1/> AREAS HOT/COLD PACKS THERAPEUT 45775 CAYETANO MONTEIRO IC PX 1/> 9 [facility] AREAS INC INC EACH 15 MIN EXERCISES APPL 70530 CAYETANO MONTEIRO MODALITY 9 [facility] 1/> AREAS INC INC ELEC STIMJ UNATTENDE D POLYSOM 51861 CAYETANO MONTEIRO 6/>YRS 9 [facility] SLEEP 4/> INC INC ADDL SHAUN ATTND APPL 91911 CAYETANO MONTEIRO MODALITY 9 [facility] 1/> AREAS INC INC ELEC STIMJ UNATTENDE D THERAPEUT 82746 CAYETANO MONTEIRO IC PX 1/> 9 [facility] AREAS INC INC EACH 15 MIN EXERCISES APPLICATI 84831 CAYETANO MONTEIRO ON 9 [facility] MODALITY INC INC 1/> AREAS HOT/COLD PACKS MANUAL 53055 CAYETANO MONTEIRO THERAPY 9 [facility] TQS 1/> INC INC REGIONS EACH 15 MINUTES APPL 51069 CAYETANO MONTEIRO MODALITY 9 [facility] 1/> AREAS INC INC VASOPNEUM ATIC DEVICES APPL 36858 CAYETANO MONTEIRO MODALITY 9 [facility] 1/> AREAS INC INC ELEC STIMJ UNATTENDE D THERAPEUT 44576 CAYETANO MONTEIRO IC PX 1/> 9 [facility] AREAS INC INC EACH 15 MIN EXERCISES PHYSICAL 55326 CAYETANO MONTEIRO THERAPY 9 [facility] EVALUATIO INC INC N DEBRIDEME 47121 KARRIE YOON, NT 9 KRISTI Akhtar MASTOIDEC JUANCHO CAVITY SIMPLE BINOCULAR 06509 KARRIE YOON, 9 KRISTI Akhtar MICROSCOP Y SEPARATE DX PROCEDURE WRIST L3908 TRACY TRACY HAND 9 YOAV CASON MD ORTHOSIS PSC PSC EXT CONTROL COCK-UP PREFAB RADEX 21420 CAYETANO AVERYON WRIST 2 9 [facility] VIEWS INC INC LIPID 32155 COMBINED COMBINED PANEL 9 PHYSICIAN PHYSICIAN S LAB S LAB COMPREHEN 20958 COMBINED COMBINED SIVE 9 PHYSICIAN PHYSICIAN METABOLIC S LAB S LAB PANEL BLOOD 12108 COMBINED COMBINED COUNT 9 PHYSICIAN PHYSICIAN COMPLETE S LAB S LAB AUTO&[place] [address] COMBINED COMBINED THYROID 9 PHYSICIAN PHYSICIAN STIMULATI S LAB S LAB NG HORMONE TSH LIPID 64446 COMBINED COMBINED PANEL 9 PHYSICIAN PHYSICIAN S LAB S LAB DRUG 45581 COMBINED COMBINED SCREEN 9 PHYSICIAN PHYSICIAN QUANTITAT S LAB S LAB BROOKLYNN PHENYTOIN TOTAL RADEX 24907 CAYETANO MONTEIRO WRIST 2 9 [facility] VIEWS INC INC RADEX 24851 HANKS, HANKS, ANKLE 9 DON R DON R COMPLETE MINIMUM 3 VIEWS RADEX 25736 ELPIDIO BRAR 2 9 MEDICAL ZHAO P VIEWS IMAGING ASSOCIATE S APPLICATI 40854 BOWEN WISEMAN, ON CAST 9 TRACY TRACY ELBOW FINGER SHORT ARM RADEX 87970 CARLOS CEJA, WRIST 2 9 MEDICAL ZHAO P VIEWS IMAGING ASSOCIATE S RADEX 16167 CAYETANO MONTEIRO WRIST 2 9 [place] [address] CAYETANO MONTEIRO INFUSION 9 [facility] THERAPY/P INC INC ROPHYLAXI S /DX 1ST TO 1 HR CLOS RDUC 7902 CAYETANO MONTEIRO FRACTURE 9 [facility] INC INC RADIUS&UL NA WITHOUT INTRL FIX ANES 17009 [facility], RADIUS 9 ANESTH MELLISA L ULNA OF THE WRIST/VINAY CONROY D BONES CLOSED PX BLOOD 67691 CAYETANO MONTEIRO COUNT 9 [facility] COMPLETE INC INC AUTO&AUTO DIFRNTL WBC CLTX DSTL 04878 BOWEN WISEMAN, RDL 9 TRACY TRACY FX/EPIPHY [place] [address] CAYETANO MONTEIRO INFUSION 9 [facility] THERAPY INC INC PROPHYLAX IS/DX EA HOUR RADEX 64756 [facility] HAND 9 MEDICAL STEPHANI MINIMUM 3 IMAGING VIEWS ASSOCIATE S DRUG 82210 COMBINED COMBINED SCREEN 9 PHYSICIAN PHYSICIAN QUANTITAT S LAB S [place] [address] COMBINED COMBINED THYROID 9 PHYSICIAN PHYSICIAN STIMULATI [place] [address] CAYETANO MONTEIRO THYROID 9 [facility] STIMULATI INC INC NG HORMONE TSH 3D 25106 [facility] BRENNA, RENDERING 9 MEDICAL ZHAO P W/INTERP IMAGING & ASSOCIATE POSTPROCE S SS SUPERVISI ON COMPREHEN 86538 CAYETANO MONTEIRO SIVE 9 [facility] METABOLIC INC INC PANEL BLOOD 23836 CAYETANO MONTEIRO COUNT 9 [facility] COMPLETE INC INC AUTO&AUTO DIFRNTL WBC DRUG 19326 CAYETANO MONTEIRO SCREEN 9 [facility] QUANTITAT INC INC BROOKLYNN PHENYTOIN TOTAL ECG 65165 CAYETANO MONTEIRO ROUTINE 9 [facility] ECG INC INC W/LEAST 12 LDS TRCG ONLY W/O I&[place] [address] CAYETANO MONTEIRO HEAD/BRAI 9 [facility] N W/O INC INC CONTRAST MATERIAL RHYTHM 54015 CAYETANO MONTEIRO ECG 1-3 9 [facility] LEADS INC INC TRACING ONLY W/O I&R ECG 45890 CAYETANO ANANDAMIE ROUTINE 9 [facility] ROB F W/LEAST PROF SERV 12 LDS I&R ONLY AMBULANCE A0429 [facility] SERVICE 9 AMBULANCE AMBULANCE BLS SERVICE SERVICE EMERGENCY TRANSPORT GROUND A0425 [facility] MILEAGE 9 AMBULANCE AMBULANCE PER SERVICE SERVICE STATUTE MILE OPH 59427 GERMAIN MAGANA, MEDICAL 9 VISION SG M XM&EVAL COMPRHNSV ESTAB PT 1/> DRUG 84111 COMBINED COMBINED SCREEN 9 PHYSICIAN PHYSICIAN QUANTITAT S LAB S LAB BROOK[place]NN PHENYTOIN TOTAL LIPID 11976 COMBINED COMBINED PANEL 9 PHYSICIAN PHYSICIAN S LAB S LAB GLUCOSE 67654 COMBINED COMBINED TOLERANCE 9 PHYSICIAN PHYSICIAN TEST GTT S LAB S LAB 3 [place] [address] COMBINED COMBINED THYROID 9 PHYSICIAN PHYSICIAN STIMULATI S [place] [address] COMBINED COMBINED THYROID 9 PHYSICIAN PHYSICIAN STIMULATI S LAB S LAB NG HORMONE TSH DRUG 23607 COMBINED COMBINED SCREEN 9 PHYSICIAN PHYSICIAN QUANTITAT S LAB S LAB BROOK[place]NN PHENYTOIN TOTAL DEBRIDEME 17418 KARRIE YOON, NT 8 KRISTI Akhtar MASTOIDEC JUANCHO CAVITY SIMPLE DRUG 55720 COMBINED COMBINED SCREEN 8 PHYSICIAN PHYSICIAN QUANTITAT S LAB S [place] [address] COMBINED COMBINED THYROID 8 PHYSICIAN PHYSICIAN STIMULATI S LAB S LAB NG HORMONE TSH MICROSURG 19865 KARRIE YOON, CATHERINES REQ 8 KRISTI Akhtar USE OPERATING MICROSCOP E MICROSURG 87946 KARRIE YOON, CATHERINES REQ 8 KRISTI Akhtar USE OPERATING MICROSCOP E DEBRIDEME 01025 KARRIE YOON, NT 8 KRISTI Akhtar MASTOIDEC JUANCHO CAVITY SIMPLE DRUG 93664 COMBINED COMBINED SCREEN 8 PHYSICIAN PHYSICIAN QUANTITAT S LAB S LAB BROOK[place]NN PHENYTOIN TOTAL GENERAL 79526 COMBINED COMBINED HEALTH 8 PHYSICIAN PHYSICIAN PANEL S LAB S LAB COMPUTER- 90189 [facility] VALENTINE, AIDED 8 MEDICAL STEPHANI DETECTION IMAGING ASSOCIATE SCREENING S MAMMOGRAP HY SCREENING 85060 [facility] [facility], 8 MEDICAL STEPHANI MAMMOGRAP IMAGING HY ASSOCIATE BILATERAL S DUP-SCAN 79714 [place] [facility], XTR VEINS 8 MEDICAL STEPHANI IMAGING UNILATERA ASSOCIATE L/LIMITED S STUDY DUPLEX 78180 [place] BRENNA, SCAN 8 MEDICAL ZHAO P EXTRACRAN IMAGING IAL ART ASSOCIATE COMPL BI S STUDY DRUG 72904 CAYETANO MONTEIRO SCREEN 8 [facility] QUANTITAT INC INC [facility] PHENYTOIN TOTAL LIPID 52238 [facility] INC INC COMPREHEN 64869 [facility] SIVE 8 [facility] [place] [address] [facility] THYROID 8 [facility] STIMULATI INC INC NG HORMONE TSH BLOOD 04115 [facility] COUNT 8 [facility] COMPLETE INC INC AUTO&AUTO DIFRNTL WBC RADIOLOGI 58523 LAT[facility] HANKS C EXAM 8 DON R DON R PELVIS COMPL MINIMUM 3 VIEWS RADIOLOGI 29220 LAT[facility] HANKS C EXAM 8 DON R DON R PELVIS COMPL MINIMUM 3 VIEWS COMMODE [id number] DEBORAH CABRERA CHAIR 8 HOME MED HOME MED MOBILE OR EQUIP. EQUIP. [employer] [facility] STATIONAR Y W/FIXED ARMS DRUG 89462 [facility] SCREEN 8 MED LAB MED LAB QUANTITAT [facility] PHENYTOIN TOTAL SBSQ 31454 LATON[facility] HANKS NURSING 8 DON R DON R FACILITY CARE/DAY E/M STABLE 10 MIN DRUG 81553 [facility] 8 MED LAB MED LAB QUANTITAT [facility] 12997 [facility] 8 DON R DON R DAY MANAGEMEN T 30 MIN/< [place] [address] AMY AMESMONT 1/> AREAS 8 HEALTHCAR HEALTHCAR EA 15 E E MIN GAIT TRAINJ W/STAIR THERAPEUT 52645 AMY DIAZT ACTVITY 8 HEALTHCAR HEALTHCAR DIRECT PT E E CONTACT EACH 15 MIN SELF-CARE 57617 AMY DIAZT /HOME 8 HEALTHCAR HEALTHCAR MGMT E E TRAINING EACH 15 MINUTES PHYSICAL 01687 EMILYT [place] THERAPY 8 HEALTHCAR HEALTHCAR EVALUATIO E E N OCCUPATIO 55230 AMY AMESMONT NAL 8 HEALTHCAR HEALTHCAR THERAPY E E EVALUATIO N THERAPEUT 69370 AMY DIAZT IC PX 1/> 8 HEALTHCAR HEALTHCAR AREAS E E [place] [address] EMILYT KWAKUMONT /> AREAS 8 HEALTHCAR HEALTHCAR EACH 15 E E MIN NEUROMUSC REEDUCA GROUND A0425 [facility] [place] 8 AMBULANCE AMBULANCE PER SERVICE SERVICE STATUTE MILE SBSQ 05834 [facility] 8 DON R DON R CARE/DAY 25 MINUTES SBSQ 73066 [facility] 8 DON R DON R CARE/DAY 25 MINUTES SBSQ 77668 [facility] 8 DON R DON R CARE/DAY 25 MINUTES RADEX HIP 60030 [place] Anabel CEJA UNILATERA IMAGING L ASSOCIATE COMPLETE S MINIMUM 2 VIEWS INITIAL 82736 [facility] 8 DON R DON R CARE/DAY [address] LOWER 51950 [facility] BRENNA EXTREMITY 8 ALLAN Pardo W/O IMAGING CONTRAST ASSOCIATE MATERIAL S 3D 07220 [facility] BRENNA RENDERING 8 ALLAN Pardo IMAGING W/INTERP& ASSOCIATE POSTPROC S DIFF WORK STATION RADEX 54611 [facility] SPINE 8 MEDICAL ZHAO P LUMBOSACR IMAGING AL ASSOCIATE MINIMUM 4 S VIEWS RADEX 52030 [facility] CEJA, SACRUM & 8 MEDICAL ZHAO P COCCYX IMAGING MINIMUM 2 ASSOCIATE VIEWS S RADIOLOGI 96656 [facility] CE[facility] C 8 MEDICAL ZHAO P EXAMINATI IMAGING ON PELVIS ASSOCIATE 1/2 S VIEWS RADIOLOGI 23843 [place] ROBERTO, C 8 CALISTA S EXAMINATI RADIOLOGY ON PELVIS 1/2 ASSOCIATE VIEWS S PSC AMBULANCE A0429 [facility] SERVICE 8 [place] [facility] BLS EMERGENCY AMBULANCE AMBULANCE TRANSPORT GROUND A0425 [facility] MILEAGE 8 [place] PER STATUTE AMBULANCE AMBULANCE MILE RADEX HIP 91344 [facility] 8 CALISTA S UNILATERA RADIOLOGY L COMPLETE ASSOCIATE MINIMUM 2 S PSC VIEWS DEBRIDEME 43945 KARRIE YOON NT 8 KRISTI Akhtar MASTOIDEC JUANCHO CAVITY CMPLX ANESTHESI 10565 Maxine SULLIVAN 8 ANESTH FAUSTO A EXTERNAL OF THE MIDDLE & BLUEGRASS INNER EAR W/BX NOS LEVEL III 93308 PATHOLOGY PATHOLOGY SURG 8 & & PATHOLOGY CYTOLOGY CYTOLOGY LAB LAB GROSS&TANI ROSCOPIC EXAM MICROSURG 18375 KARRIE YOON TQS REQ 8 KRISTI Akhtar USE OPERATING MICROSCOP E MICROSURG 60340 KARRIE YOON TQS REQ 8 KRISTI Akhtar USE OPERATING MICROSCOP E DEBRIDEME 86586 KARRIE YOON NT 8 KRISTI Akhtar MASTOIDEC JUANCHO CAVITY SIMPLE Encounters Encounter Start End Date Code Location Performer Type Date OFFICE 04115 Maxine [facility] OUTPATIEN 7 7 NANCY FIELDS T VISIT PSC 15 MINUTES OFFICE 07683 [facility] YOON OUTPATIEN 7 7 PHYSICIAN T VISIT S GROUP 15 MINUTES OFFICE 52412 [facility] YOON OUTPATIEN 7 7 PHYSICIAN T VISIT S GROUP 15 MINUTES OFFICE 87514 [facility] YOON OUTPATIEN 7 7 PHYSICIAN T VISIT S GROUP 15 MINUTES OFFICE 65090 A C KILPELA OUTPATIEN 7 7 NANCY FIELDS T VISIT PSC 15 MINUTES OFFICE 84153 A C KILPELA OUTPATIEN 7 7 NANCY FIELDS T VISIT PSC 15 MINUTES OFFICE 23218 [facility] YOON OUTPATIEN 7 7 PHYSICIAN T VISIT S GROUP 15 MINUTES EMERGENCY 29872 [facility] ALEJANDRO 7 7 PHYSICIAN DEPARTMEN S, PLLC T VISIT HIGH/URGE NT SEVERITY EMERGENCY 59688 [facility] 7 7 [facility] DEPARTMEN INC T VISIT MODERATE SEVERITY [facility] - 7 7 [facility] OUTPATIEN INC T OFFICE 91255 A C KILPELA OUTPATIEN 7 7 NANCY FIELDS T VISIT PSC 15 MINUTES OFFICE 97518 A C KILPELA OUTPATIEN 7 7 NANCY FIELDS T VISIT PSC 15 MINUTES HOSPITAL [facility] 7 7 [facility] OUTPAT[facility] INC T OFFICE 73495 [facility] RONDA CONSULTAT 7 7 PHYSICIAN ION S GROUP NEW/ESTAB PATIENT 40 MIN OFFICE 52898 A C KILPELA OUTPATIEN 6 6 NANCY FIELDS T VISIT PSC 15 MINUTES OFFICE 49579 [facility] YOON OUTPATIEN 6 6 PHYSICIAN KERI T VISIT S GROUP 10 MINUTES [facility]OSP[facility] - 6 6 [facility] [facility] T [facility] [place] [facility] OUTPATI[facility] INC T OFFICE 49944 [facility] YOON OUTPATIEN 6 6 PHYSICIAN KERI T VISIT S GROUP 15 MINUTES [facility]OSP[facility] 6 6 [facility] [place] [facility] 6 6 [facility] OUTPATIEN INC T OFFICE 69344 [facility] YOON OUTPATIEN 6 6 PHYSICIAN KERI T VISIT S GROUP 10 MINUTES [facility]OSPITAL [facility] - 6 6 [facility] OUTPATIEN INC T OFFICE 46801 A C KILPELA OUTPATIEN 6 6 NANCY FIELDS JEA T VISIT PSC 25 MINUTES OFFICE 51651 A C FLORENTINO MARTY OUTPATIEN 6 6 NANCY FIELDS T VISIT PSC 15 MINUTES [facility]OSPITAL [facility] 6 6 [facility] OUTPATIEN INC T OFFICE 75704 [facility] YOON OUTPATIEN 6 6 PHYSICIAN KERI T VISIT S GROUP 15 MINUTES PERIODIC 91765 A C KILPELA PREVENTIV 6 6 NANCY FIELDS JEA E MED EST PSC PATIENT 40-64YRS OFFICE 50301 [facility] YOON OUTPATIEN 6 6 PHYSICIAN KERI T VISIT S GROUP 15 MINUTES OFFICE 41118 A C CRUZ OUTPATIEN 6 6 NANCY FIELDS WHITNEY T VISIT PSC 15 MINUTES OFFICE 37091 A C TALIBLA OUTPATIEN 6 6 NANCY FIELDS JEMaxine T VISIT PSC 15 MINUTES OFFICE 97098 [facility] YOON OUTPATIEN 6 6 PHYSICIAN KERI T VISIT S GROUP 15 MINUTES OFFICE 09253 [facility] [place] [facility] OUTPATIEN 5 5 NANCY FIELDS T VISIT PSC 25 MINUTES OFFICE 18845 [facility] [place] [facility] OUTPATIEN 5 5 NANCY FIELDS T VISIT PSC 15 MINUTES [facility] 5 5 HOME [facility], 5 5 [facility] OFFICE 44680 [facility] [place] [facility] OUTPATIEN 5 5 NANCY FIELDS T VISIT PSC 15 MINUTES OFFICE 47846 [facility] [place] [facility] OUTPATIEN 5 5 NANCY FIELDS T VISIT PSC 15 MINUTES OFFICE 02437 [facility] YOON OUTPATIEN 5 5 PHYSICIAN KERI T VISIT S GROUP 15 MINUTES EMERGENCY 68371 [facility] HOLDEN 5 5 PHYSICIAN [facility] MODERATE SEVERITY EMERGENCY 15181 [facility] 5 5 [facility] DEPARTMEN INC T VISIT LOW/MODER SEVERITY [facility] - 5 5 [facility] OUTPATIEN INC T OFFICE 22096 [facility] YOON OUTPATIEN 5 5 PHYSICIAN KERI T NEW 30 S GROUP MINUTES OFFICE 18147 [facility] [place] [facility] OUTPATI[facility] 5 5 NANCY FIELDS T VISIT PSC 25 MINUTES OFFICE 96909 [facility] [place] [facility] OUTPATIEN 5 5 NANCY FIELDS T VISIT PSC 15 MINUTES OFFICE 84568 [facility] [place] [facility] OUTPATIEN 5 5 NANCY FIELDS T VISIT PSC 15 MINUTES OFFICE 24682 [place] [facility] OUTPATI[facility] 4 4 NANCY FIELDS T VISIT PSC 15 MINUTES OFFICE 71850 [facility] Y[facility]ON OUTPATIEN 4 4 KERI KERI T VISIT 15 MINUTES [facility]OSPITAL [facility] - 4 4 [facility] OUTPATIEN INC T OFFICE 34234 [facility] Y[facility]ON OUTPATIEN 4 4 KERI KERI T VISIT 15 MINUTES OFFICE 41396 [place] SANTAMARIAES MARTY OUTPATIEN 4 4 T VISIT 15 MINUTES OFFICE 85526 [place] M[facility] MUNOZES MARTY OUTPATIEN 4 4 T VISIT 25 MINUTES OFFICE 20632 [place] MARTY [facility] OUTPATIEN 4 4 T VISIT 15 MINUTES [facility] 4 4 [facility] OUTPATIEN INC T OFFICE 13880 [place] MARTY [facility] OUTPATIEN 4 4 T VISIT 25 MINUTES OFFICE 67924 KARRIE YOON OUTPATIEN 4 4 KERI KERI T VISIT 15 MINUTES OFFICE 83914 FLORENTINOOBEY SANTAMARAIES MARTY OUTPATIEN 4 4 T VISIT 15 MINUTES OFFICE 27200 FLOR[facility]OOBEY FERGUSON [place] MARTY OUTPATIEN 3 3 T VISIT 10 MINUTES OFFICE 95766 FLORENTINOOBEY FIELDS MARTY OUTPATIEN 3 3 T VISIT 15 MINUTES OFFICE 13147 A C FLOR[place]INO MARTY OUTPATIEN 3 3 NANCY FIELDS T VISIT PSC 15 MINUTES OFFICE 57576 A C FLOR[place]INO MARTY OUTPATIEN 3 3 NANCY FIELDS T VISIT PSC 15 MINUTES OFFICE 02073 A C DUGLASPELA OUTPATIEN 3 3 NANCY JUAREZ T VISIT PSC 15 MINUTES [facility] - 3 3 [facility] T [facility], [facility] OFF[facility] 86989 A C KILPELA OUTPATIEN 3 3 NANCY FIELDS JEMaxine T NEW 30 PSC MINUTES OFFICE 11075 [facility] HANKS OUTPATIEN 3 3 DON DON T VISIT 15 MINUTES OFFICE 06501 KARRIE LIMON OUTPATIEN 3 3 KERI KERI T VISIT 15 MINUTES Emergency DEVYN [place] Ang (ER) 3 14:58 3 15:34 [facility] - 3 3 [facility] OUTPATIEN INC T EMERGENCY 47767 STEFFANY ANG 3 3 III [facility] DEPARTMEN T VISIT HIGH/URGE NT SEVERITY EMERGENCY 53741 [facility] 3 3 [facility] DEPART[facility] INC T VISIT LOW/MODER SEVERITY [facility] - 3 3 [facility] OUTPATIEN INC T OFFICE 63302 KARRIE YOON OUTPATIEN 3 3 KERI KERI T VISIT 10 MINUTES OFFICE 69221 [facility] HANKS OUTPATIEN 3 3 DON DON T VISIT 15 MINUTES HOSPITAL [place] - 3 3 [facility] INC T HOSPITAL [place] [facility] 3 3 [facility] OUTPATIEN [facility] T PERIODIC 14504 LATONYA HOLGUINS PREVENTIV 3 3 DON DON E MED EST PATIENT 40-64YRS OFFICE 32183 KARRIE YOON OUTPATIEN 3 3 KERI KERI T VISIT 25 MINUTES [facility] 3 3 HOME [facility]ENCY [facility]ENC[facility] 03897 [place] 2 2 [facility] [place] T VISIT LOW/MODER SEVERITY EMERGENCY 04131 STEFFANY ANG 2 2 III ADDIS III [facility] T VISIT HIGH/URGE NT SEVERITY HOSPITAL [place] - 2 2 [facility] OUTPATIEN [facility] OFFICE 22951 LATONYA HOLGUINS OUTPATIEN 2 2 DON DON T VISIT 25 MINUTES EMERGENCY 26658 [place] 2 2 [facility] [place] T VISIT LOW/MODER SEVERITY EMERGENCY 43127 NAHOMY COREA 2 2 [facility] T VISIT HIGH/URGE NT SEVERITY HOSPITAL [place] - 2 2 [facility] OUTPATIEN [facility] OFFICE 02025 LATONYA SHEAHENS OUTPATIEN 2 2 DON DON T VISIT 25 MINUTES OFFICE 18813 HANKS HANKS OUTPATIEN 2 2 DON DON T VISIT 25 MINUTES HOSPITAL [place] - 2 2 [facility] OFFICE 59589 [facility] HANKS OUTPATIEN 2 2 DON DON T VISIT 25 MINUTES OFFICE 70123 HANKS HANKS OUTPATIEN 2 2 DON DON T VISIT 15 MINUTES [facility] - 2 2 [facility] T [facility] [place] - 2 2 [facility] T OFFICE 32825 HANKS HANKS OUTPATIEN 2 2 DON DON T VISIT 15 MINUTES [facility], 2 2 [facility]IST[facility] OUTPATIEN & HOME HE T HOME [facility]SES HEALTH, 2 2 [facility] OUTPATIEN & HOME HE T OFFICE 06785 HANKS HANKS OUTPATIEN 2 2 DON DON T VISIT 15 MINUTES OFFICE 37194 HANKS HANKS OUTPATIEN 1 1 DON DON T VISIT 15 MINUTES [facility] 1 1 [facility] T OFFICE 21669 [place] [facility] 1 1 [facility] VIS[facility] CLINIC 25 PSC MINUTES [facility] [place] - 1 1 [facility]PAT[facility] INC T OFFICE 49750 HANKS HANKS OUTPATIEN 1 1 DON DON T VISIT 15 MINUTES OFFICE 09237 HANKS HANKS OUTPATIEN 1 1 DON DON T VISIT 15 MINUTES OFFICE 37127 [place] OUT[facility]EN 1 1 [facility] VISIT CLINIC 25 PSC MINUTES [facility] [place] - 1 1 [facility] OUTPATIEN INC T OFFICE 99525 HANKS HANKS OUTPATIEN 1 1 DON DON T VISIT 15 MINUTES EMERGENCY 73802 PEDRITO HERNANDEZ DEPT 1 1 EMERGENCY VISIT SERVICES HIGH SEVERITY& THREAT [facility] [place] - 1 1 [facility] OUTPATIEN [facility] T EMERGENCY 85335 [place] 1 1 [facility] T VISIT HIGH/URGE NT SEVERITY OFFICE 99861 KARRIE YOON OUTPATIEN 1 1 KERI KERI T VISIT 15 MINUTES EMERGENCY 83254 [place] 1 1 [facility] T VISIT HIGH/URGE NT SEVERITY EMERGENCY 63045 PEDRITO ANG DEPT 1 1 EMERGENCY III ADDIS VISIT SERVICES HIGH SEVERITY& THREAT [facility] [place] - 1 1 [facility]EN [facility] [place] - 1 1 [facility] OUT[facility]EN [facility] T OFFICE 71937 LATONYA HANKS OUTPATIEN 1 1 DON DON T VISIT 15 MINUTES HOSPITAL [place] - 1 1 [facility] OUT[facility]EN [facility] OFFICE 98563 [place] [facility] 1 1 [facility] NEW/ESTAB PSC PATIENT 60 MIN [facility] [place] - 1 1 [facility] OUTPATIEN [facility] T OFFICE 48651 LATONYA HOLGUINS OUTPATIEN 1 1 DON DON T VISIT 15 MINUTES HOSPITAL [place] - 1 1 [facility] OUTPATIEN [facility] T EMERGENCY 04550 PEDRITO COREA DEPT 1 1 EMERGENCY TANI VISIT SERVICES HIGH SEVERITY& THREAT [facility] 73046 [place] 1 1 [facility] T VISIT HIGH/URGE NT SEVERITY [facility]OSP[facility] [place] - 1 1 [facility] OUTPATIEN [facility] T EMERGENCY 33795 [place] 0 0 [facility] T VISIT LOW/MODER SEVERITY OFFICE 46470 HANKS HANKS OUTPATIEN 0 0 DON DON T VISIT 15 MINUTES EMERGENCY 37002 PEDRITO SALDANA BAB DEPT 0 0 EMERGENCY VISIT SERVICES HIGH SEVERITY& THREAT [facility] 0 [facility] OUTPATIEN INC T OFFICE 22498 CONRAD MARTINES OUTPATIEN 0 0 RUPERT RUPERT T NEW 45 MINUTES OFFICE 25786 [facility] SHEAHENS OUTPATIEN 0 0 DON DON T VISIT 15 MINUTES OFFICE 47813 YOONANALILIA YOON OUTPATIEN 0 0 KERI KERI T VISIT 15 MINUTES [facility]OSPITAL [facility] - 0 0 [facility] OUTPATIEN INC T OFFICE 68381 HANKS HANKS OUTPATIEN 0 0 DON DON T VISIT 15 MINUTES OFFICE 80571 KARRIE YOON OUTPATIEN 0 0 KERI KERI T VISIT 10 MINUTES OFFICE 90831 HANKS HANKS OUTPATIEN 0 0 DON DON T VISIT 15 MINUTES [facility] - 0 0 [facility] OUTPATIEN INC T EMERGENCY 50725 [facility] 0 0 [facility] DEPARTMEN INC T VISIT HIGH/URGE NT SEVERITY OFFICE 59819 HANKS HANKS OUTPATIEN 0 0 DON DON T VISIT 15 MINUTES [facility] - 0 0 [facility] OUTPATIEN INC T OFFICE 31928 HANKS, HANKS, OUTPATIEN 0 0 DON R DON R T VISIT 15 MINUTES OFFICE 59247 KARRIE YOON OUTPATIEN 0 0 KRISTI G KRISTI G T VISIT 15 MINUTES [facility] - 0 0 [facility] T [facility] [place] [facility] 0 0 [facility] INC T OFFICE 53088 KARRIE YOON OUTPATIEN 0 0 KRISTI Akhtar T VISIT 15 MINUTES [facility]OSP[facility] - 0 0 [facility] OUTPATIEN [facility] T PERIODIC 79407 [place] HANKS PREVENTIV 0 0 DON R DON R E MED EST PATIENT 40-64YRS OFFICE 44982 CONRAD MARTINES OUTPATIEN 0 0 , EDWIN FAUSTOEDWIN T VISIT W W 15 MINUTES OFFICE 63286 [facility] HANKS OUTPATIEN 0 0 DON R DON R T VISIT 15 MINUTES [facility]OSP[facility] [place] - 0 0 [facility] OUTPAT[facility]EN [facility] T EMERGENCY 01415 [place] 0 0 [facility] T VISIT HIGH/URGE NT SEVERITY [facility] [place] - 0 0 [facility]EN [facility] T OFFICE 33958 LATONYA HANKS OUTPATIEN 0 0 DON R DON R T VISIT 15 MINUTES [facility] [place] - 0 0 [facility] OFFICE 73680 BOWEN WISEMAN OUTPATIEN 0 0 TRACY TRACY T VISIT 15 MINUTES [facility]OSP[facility] [place] - 0 0 [facility] [place] - 0 0 [facility] [facility] T HOSPITAL [place] - 9 9 [facility] OUTPATIEN [facility] T [facility]OSPITAL [place] - 9 9 [facility] OUTPATIEN INC T OFFICE 30287 LAT[facility] HANKS OUTPATIEN 9 9 DON R DON R T VISIT 15 MINUTES OFFICE 59849 BOWEN WISEMNA OUTPATIEN 9 9 TRACY TRACY T VISIT 15 MINUTES OFFICE 83887 BOWEN WISEMAN OUTPATIEN 9 9 TRACY TRACY T VISIT 15 MINUTES OFFICE 81258 [facility] HANKS OUTPATIEN 9 9 DON R DON R T VISIT 15 MINUTES OFFICE 71803 [facility] HANKS OUTPATIEN 9 9 DON R DON R T VISIT 15 MINUTES [facility]OSP[facility] [place] - 9 9 [facility] INC T [facility] [place] - 9 9 [facility] OUTPATIEN INC T OFFICE 53882 LATONYA HANKS OUTPATIEN 9 9 DON R DON R T VISIT 15 MINUTES [facility] [place] - 9 9 [facility]PAT[facility] INC T [facility] [place] - 9 9 [facility] T [facility] [place] - 9 9 [facility]PAT[facility] INC T OFFICE 55429 BOWEN WISEMAN OUTPATIEN 9 9 TRACY TRACY T NEW 45 MINUTES [facility]OSP[facility] [place] - 9 9 [facility] OUTPATIEN INC T EMERGENCY 99658 PEDRITO COREA, 9 9 EMERGENCY [facility] SERVICES T VISIT MODERATE ASSOCIATE SEVERITY S OFFICE 50448 [facility] HANKS OUTPATIEN 9 9 DON R DON R T VISIT 15 MINUTES OFFICE 21851 [facility] HANKS OUTPATIEN 9 9 DON R DON R T VISIT 15 MINUTES EMERGENCY 88600 [place] DEPT 9 9 [facility] VISIT INC HIGH SEVERITY& THREAT FUN [facility] [place] - 9 9 [facility] OUTPATIEN INC T HOME 08590 FAMILY VISIT EST 9 9 HOME PT HEALTH MOD-HI CARE INC SEVERITY 40 MINUTES HOME FAMILY HEALTH, 9 9 HOME OUTPATIEN HEALTH T CARE INC HOME 91415 FAMILY VISIT EST 9 9 HOME PT HEALTH MOD-HI CARE INC SEVERITY 40 MINUTES HOME [facility], 9 9 HOME OUTPATIEN HEALTH T CARE INC HOME FAMILY HEALTH, 9 9 HOME OUTPATIEN HEALTH T CARE INC HOME 99297 FAMILY VISIT EST 9 9 HOME PT HEALTH MOD-HI CARE INC SEVERITY 40 MINUTES OFFICE 73678 LATONYA HANKS OUTPATIEN 9 9 DON R DON R T VISIT 15 MINUTES OFFICE 46320 [facility] HANKS OUTPATIEN 8 8 DON R DON R T VISIT 15 MINUTES [facility]PITAL [place] - 8 8 [facility] OUTPATIEN INC T OFFICE 00063 [facility] HANKS OUTPATIEN 8 8 DON R DON R T VISIT 15 MINUTES EMERGENCY 72891 CLARY SALDANA, 8 8 [facility] DEPARTMEN CORPORATI O T VISIT ON MODERATE SEVERITY EMERGENCY 03507 [place] 8 8 [facility] DEPARTMEN INC T VISIT LOW/MODER SEVERITY [facility] [place] - 8 8 [facility]PAT[facility] INC T [facility] [place] - 8 8 [facility] T [facility] [place] - 8 8 [facility] OUTPATIEN INC T OFFICE 52137 LATON[facility] HANKS OUTPATIEN 8 8 DON R DON R T VISIT 15 MINUTES OFFICE 75489 LATON[facility] HANKS OUTPATIEN 8 8 DON R DON R T VISIT 15 MINUTES OFFICE 85113 LATON[facility] HANKS OUTPATIEN 8 8 DON R DON R T VISIT 15 MINUTES OFFICE 44789 LATON[facility] HANKS OUTPATIEN 8 8 DON R DON R T VISIT 15 MINUTES HOME [facility], 8 8 HOME [facility] HEALTH T AGENCY [facility] 8 8 [facility] OFFICE 56309 KARRIE YOON OUTPATIEN 8 8 KRISTI Akhtar T VISIT [address] [facility] 8 8 [facility] [place] - 8 8 [facility] IN[facility] INC OFFICE 63248 KARRIE YOON OUTPATIEN 8 8 KRISTI Fraga VISIT 15 MINUTES
--- OUTSIDE RECORDS SUMMARY | 2017-04-07 21:14 | External Medical Summary Rpt | CCD ---
Author Author , ALISABRITTNEY Organization [facility] Address Unknown Phone [email or web address] Team Providers Care Greens Planter Name Role Phone A Angeles CRUZ MD [...] Unavailable EDWIN ENRIQUEZ, Unavailable Unavailable EDWIN MARTINES [facility] Unavailable [place]available [place], [facility] [place] [facility] [place] Un[place] [facility], Unavailable Unavailable [facility] Unavailable Unavailable [facility], [facility] TRANS Unavailable Unavailable [facility], [facility]ATED TRANS [facility] FEDERATED Unavailable Unavailable TRANSPORTATION SER, [facility]SPORTATION [facility] NAHOMY KIM Unavailable Unavailable TANI ERIKA COREA, Unavailable Unavailable ERIKA COREA [facility] Unavailable [facility] Unavailable Unavailable INC, [facility] Unavailable Unavailable [facility]OSPITAL P, [facility] CALISTA MEJIA, Unavailable Unavailable CALISTA MEJIA HINES Unavailable Unavailable HOWARDBRADFORDHOWARD Unavailable Unavailable MARIETTA HOWARD, Unavailable Unavailable MARIETTA HOWARD A [facility], Unavailable Unavailable [facility] Unavailable Unavailable [facility], [facility], Unavailable Unavailable [facility] [...] JR DWI, AUDIE Unavailable Unavailable JR DWI [facility] Unavailable Unavailable 11, [facility] 11 [facility] Unavailable Unavailable ACTION, [facility], Unavailable Unavailable [facility] NAVIN HARRY, NAVIN Unavailable Unavailable HARRY [facility], [facility]available Unavailable [facility] Unavailable Unavailable SERVICES, [facility]ayun Unavailable Unavailable AMBULANCE, [facility] LORRAINE ZUNIGA JR Unavailable Unavailable F, [facility] Unavailable Unavailable [facility], [facility] ZHAO CEJA, Unavailable Unavailable ZHAO CEJA FLORENTINO MARTY, FLORENTINO MARTY Unavailable Unavailable FLORENTINO MARTY, FLORENTINO MARTY Unavailable Unavailable MULBERRY HARRY, Unavailable Unavailable MULBERRY HARRY [facility] Unavailable Unavailable [facility], [facility] & Unavailable Unavailable HOME HE, NURSES REGISTRY & HOME [facility] P[facility]C LABS, [facility], P[facility]C Unavailable Unavailable LABS, [facility], Unavailable Unavailable PLL[facility], [facility]OLOGY [facility] CYTOLOGY Unavailable Unavailable LAB, [facility]OLOGY & CYTOLOGY LAB [facility], Unavailable Unavailable [facility], Unavailable Unavailable [facility] RONDA, RONDA Unavailable Unavailable RICO DO, Unavailable Unavailable JACKY CASON MD Unavailable Unavailable [facility], TRACY CASON MD [facility] SCIFRES ANG, SCIFRES Unavailable Unavailable [...] SOURCE FAUSTO GERBER, Unavailable Unavailable FAUSTO GERBER [facility] # Unavailable Unavailable [id number], [facility] # [id number] FLAVIA ALEJANDRO Unavailable Unavailable [facility] Unavailable Unavailable AGENCY, [facility] WEHRMAN III ADDIS, Unavailable Unavailable WEHRMAN III ADDIS WEDEIDRE III ADDIS, Unavailable Unavailable WEVISHNU III NANCY LEA Unavailable Unavailable WHITNEY Purpose Continuity of Care Document - 07-04-2007 through 2016 Problems Code Diagnosis DOS Provider Status R748 ABNORMAL 02-21-2017 [facility] OF [facility] OF [employer]. 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 12-11-2016 [facility] CIENCY PHYSICIANS RELATED GROUP DIFFUSE ENDEMIC GOITER E069 THYROIDITIS 12-11-2016 [facility] PHYSICIANS UNSPECIFIED GROUP R69 ILLNESS 12-11-2016 FEDERATED UNSPECIFIED TRANSPORTAT ION SER D649 ANEMIA 11-16-2016 [facility] UNSPECIFIED YOGESH HOLDINGS E785 HYPERLIPIDE 11-16-2016 [facility] GWEN YOGESH UNSPECIFIED HOLDINGS N05565 EPILEPSY 11-16-2016 [facility] UNS NOT YOGESH [...] 10-16-2016 A Angeles CRUZ UNSPECISABEL FIELDS PSC [id number] UNS FOREIGN 10-16-2016 A Angeles CRUZ BODY PSC LARYNX CAUS OTH INJURY INIT ENC Z6825 BODY MASS 10-16-2016 A Angeles CRUZ INDEX BMI PSC 25.0-25.9 ADULT E039 HYPOTHYROID 10-12-2016 [facility] ISM PHYSICIANS UNSPECIFIED GROUP [id number] FOOD IN 10-09-2016 [facility] ESOPHAGUS PHYSICIANS, CAUSING OTH PLLC INJURY INITIAL ENC Z0389 ENCOUNTER 10-09-2016 [facility] OT MEDICAL SUSPCT DZ & IMAGING ASS COND RULED OUT R2233 LOC 09-07-2016 A Angeles CRUZ SWELLING PSC MASS & LUMP UPPER LIMB BILATERAL K811 CHRONIC 07-05-2016 [facility] CHOLECYSTIT PHYSICIANS IS GROUP Z36882 ENCOUNTER 07-05-2016 [facility] P AL CARIOVASCUL AR EXAM I48772 ENCOUNTER 07-05-2016 [facility] P AL RESPIRATORY EXAM L07749 ENCOUNTER 07-05-2016 [facility] P AL LABORATORY EXAM J309 ALLERGIC 05-31-2016 A Angeles CRUZ RHINITIS [facility] UNSPECIFIED H7013 CHRONIC 05-26-2016 [facility] MASTOIDITIS PHYSICIANS BILATERAL GROUP H6522 CHRONIC 05-11-2016 [facility] SEROUS [facility] OTITIS INC MEDIA LEFT EAR R4702 DYSPHASIA 05-11-2016 [facility] R7989 OTHER SPEC 05-11-2016 [facility] ABNORMAL MEDICAL FINDINGS IMAGING ASS BLOOD CHEMISTRY R945 ABNORMAL 05-11-2016 [facility] LIVER INC FUNCTION STUDIES E876 HYPOKALEMIA 05-08-2016 [facility] R21 RASH AND 04-07-2016 [facility] OTHER YOGESH NONSPECIFIC HOLDINGS SKIN ERUPTION R0781 PLEURODYNIA 02-22-2016 [facility] R252 CRAMP AND 02-17-2016 [facility] SPASM YOGESH HOLDINGS R5383 OTHER 02-17-2016 [facility] FATIGUE YOGESH HOLDINGS R0981 NASAL 01-04-2016 A Angeles CRUZ CONGESTION PSC Z1231 ENCOUNTER 11-18-2015 [facility] SCREENING MEDICAL MAMMO MALIG IMAGING ASS NEOPLASM BREAST H905 UNSPECIFIED 11-11-2015 [facility] PHYSICIANS SENSORINEUR GROUP AL HEARING LOSS O51739 ENCOUNTER 11-05-2015 [facility] COMMUNICATIONS COORDINATOR EXAM YOGESH GENERAL RTN HOLDINGS W/O ABNORMAL FIND H6092 UNSPECIFIED 09-22-2015 [facility] OTITIS PHYSICIANS EXTERNA GROUP LEFT EAR H7012 CHRONIC 09-22-2015 [facility] MASTOIDITIS PHYSICIANS LEFT EAR GROUP E53758 SPONDYLOSIS 07-01-2015 [facility] W/O PHYSICIANS MYELOPATH/R GROUP ADICULOPATH Y CERV RGN 4011 ESSENTIAL 03-05-2015 A Angeles PATEL MD PSC N, BENIGN 27341 03-05-2015 FEDERATED TRANSPORTAT ION SER 9331 FOREIGN 02-22-2015 [facility] BODY IN PHYSICIANS LARYNX GROUP 4019 UNSPECIFIED 02-15-2015 [facility] ESSENTIAL [facility] HYPERTENSIO INC N 5303 STRICTURE 02-15-2015 [facility] AND [facility] STENOSIS OF INC ESOPHAGUS 95918 OTHER 02-15-2015 [facility] SYMPTOMS MEDICAL INVOLVING IMAGING ASS HEAD AND NECK 51367 DYSPHAGIA 02-15-2015 [facility] UNSPECIFIED PHYSICIANS, PLLC V140 PERSONAL 02-15-2015 [facility] HISTORY OF [facility] ALLERGY TO INC PENICILLIN 3814 NONSUPPRATV 01-20-2015 [facility] OTITIS PHYSICIANS MEDIA NOT GROUP SPEC ACUT/CHRON 3839 UNSPECIFIED 01-20-2015 [facility] PHYSICIANS MASTOIDITIS GROUP 4730 CHRONIC 01-20-2015 [facility] MAXILLARY PHYSICIANS SINUSITIS GROUP 2449 UNSPECIFIED 11-24-2014 [facility] HYPOTHYROID ISM 67762 UNSPEC 11-24-2014 A Angeles CRUZ EPILEPSY PSC WITHOUT MENTION INTRACT EPILEPSY 4779 ALLERGIC 11-24-2014 A Angeles CRUZ RHINITIS PSC CAUSE UNSPECIFIED 3804 IMPACTED 09-10-2014 YOON KERI CERUMEN 3831 CHRONIC 09-10-2014 [facility] KERI MASTOIDITIS 09777 ESOPHAGEAL 07-02-2014 A Angeles CRUZ REFLUX PSC 47856 SIMPLE/UNSP 04-09-2014 [facility] IFIED [facility] P SEROUS OTITIS MEDIA 44032 UNSPECIFIED 04-09-2014 [facility] [address] [place] 04-09-2014 [facility] [place] OF [facility] P AND MASTOID 58012 OTHER CHEST 01-20-2014 FLORENTINO MARTY PAIN 3674 PRESBYOPIA 12-12-2013 SCIFRES ANG 4770 ALLERGIC 10-31-2013 FLORENTINO MARTY RHINITIS DUE TO POLLEN V7612 OTHER 09-30-2013 [facility] SCREENING [facility] MAMMOGRAM INC 2859 UNSPECIFIED 09-15-2013 [facility] 4610 ACUTE 09-04-2013 YOON KERI MAXILLARY SINUSITIS 4612 ACUTE 09-04-2013 Y[facility] KERI ETHMOIDAL SINUSITIS 7840 HEADACHE 08-07-2013 FLORENTINO MARTY 66180 CRAMP OF 05-01-2013 FLORENTINO MARTY LIMB 35206 HYPERTENSIO 02-12-2013 Maxine CELESTIN MD PSC 63259 OTHER 02-11-2013 [facility] CONVULSIONS [facility] INC 19257 OBSTRUCTIVE 2012 KARRIE SAAVEDRA SLEEP APNEA 42622 ASTHMA, 12-20-2012 [facility] UNSPECIFIED [facility] , INC UNSPECIFIED STATUS 9351 FOREIGN 12-20-2012 WEHRMAN III BODY IN ADDIS ESOPHAGUS 2409 GOITER, 12-12-2012 [facility] UNSPECIFIED [facility] INC 2459 UNSPECIFIED 12-09-2012 KARRIE SAAVEDRA THYROIDITIS 7881 DYSURIA 10-14-2012 [facility] DON 86009 BLISTERS 10-14-2012 [facility] WITH DON EPIDERMAL LOSS DUE TO BURN-BREAST 2724 OTHER AND 09-12-2012 [facility] UNSPECIFIED [facility] INC HYPERLIPIDE GWEN V7231 ROUTINE 09-06-2012 [facility] GYNECOLOGIC DON AL EXAMINATION 46315 OSTEOARTHRO 06-27-2012 [facility] S UNSPEC HEALTH WHETHER AGENCY GEN/LOC UNSPEC SITE 7812 ABNORMALITY 06-27-2012 [facility] OF GAIT HEALTH AGENCY 7993 UNSPECIFIED 06-27-2012 [facility] DEBILITY HEALTH AGENCY V571 OTHER 06-27-2012 [facility] PHYSICAL HEALTH THERAPY AGENCY 6259 UNSPEC 06-08-2012 [facility] IMAGING ASS W/FEMALE GENITAL ORGANS 49125 PAIN IN 06-08-2012 [facility] JOINT MEDICAL PELVIC IMAGING ASS REGION AND THIGH 7295 PAIN IN 06-08-2012 [facility] SOFT AMBULANCE TISSUES OF SERVICE LIMB 8439 SPRAIN&STRA 06-08-2012 WEHRMAN III IN OF ADDIS UNSPECIFIED SITE OF HIP&THIGH E8889 UNSPECIFIED 06-08-2012 [facility] SERVICE 6980 PRURITUS 06-05-2012 [place] [place] 92136 OSTEOARTHRO 06-04-2012 [facility] S UNSPEC MEDICAL GEN/LOC IMAGING ASS PELV REGION&THIG H 12074 DEGEN 06-04-2012 [facility] LUMBAR/LUMB MEDICAL OSACRAL IMAGING ASS INTERVERTEB RAL DISC 7243 SCIATICA 06-04-2012 [facility] INC 8472 LUMBAR 06-04-2012 [facility] SPRAIN AND [facility] STRAIN INC 7821 RASH AND 05-31-2012 [facility] OTHER DON NONSPECIFIC SKIN ERUPTION 40987 PAIN IN 05-03-2012 [facility] JOINT, DON SHOULDER REGION 4554 EXTERNAL 02-23-2012 [facility] THROMBOSED DON HEMORRHOIDS 931 FOREIGN 01-29-2012 [facility] BODY IN EAR DON 77445 HEMANGIOMA 01-05-2012 [facility] OF SKIN AND DON SUBCUTANEOU S TISSUE 3813 OTHER&UNSPE 07-12-2011 [facility] C CHRONIC DON NONSUPPURAT [place] OTITIS MEDIA 04327 LOC-REL 04-11-2011 NEW EPILEPSY & [place] ES W/SPS CLINIC PSC W/O INTRACTABL EPIL 318 OTHER 03-27-2011 SUPPORT SPECIFIED SOURCE INTELLECTUA L DISABILITIE S 2761 HYPOSMOLALI 2010 [facility] TY AND/OR EMERGENCY HYPONATREMI SERVICES A 7802 SYNCOPE AND 2010 [facility] COLLAPSE AMBULANCE SERVICE 86323 NAUSEA WITH 2010 [facility] VOMITING [facility] INC 80995 VOMITING 2010 [facility] ALONE [facility]ERGENCY SERVICES 4739 UNSPECIFIED 12-18-2010 [facility] SINUSITIS EMERGENCY SERVICES 7804 DIZZINESS 12-18-2010 [facility] AND [facility]ERGENCY GIDDINESS SERVICES 7862 COUGH 12-18-2010 [facility] 7906 OTHER 10-04-2010 [facility] ABNORMAL [facility] BLOOD INC CHEMISTRY 83133 OTHER 09-27-2010 NEW CONDITIONS [place] [facility] PSC 460 ACUTE 09-19-2010 [facility] NASOPHARYNG DON ITIS 7810 ABNORMAL 08-20-2010 [facility] INVOLUNTARY AMBULANCE MOVEMENTS SERVICE 51284 MUSCLE 05-13-2010 [facility] WEAKNESS [facility]ENCY (GENERALIZE SERVICES D) 80431 OTHER 05-13-2010 [facility] MALAISE AND [facility] FATIGUE INC 09699 HYPERSOMNIA 04-08-2010 MARTINES WITH SLEEP RUPERT APNEA UNSPECIFIED 51489 HYPERSOMNIA 04-08-2010 MARTINES RUPERT UNSPECIFIED 03798 UNSPECIFIED 03-31-2010 [facility] VIC INFECTIVE OTITIS EXTERNA 5589 OTH&UNSPEC 03-18-2010 [facility] NONINFECTIO DON US GASTROENTER ITIS&COLITI S 7847 EPISTAXIS 03-03-2010 YOON KERI 94142 ABDOMINAL 02-11-2010 [facility] PAIN RIGHT DON LOWER QUADRANT 70650 ABDOMINAL 02-11-2010 [facility] PAIN, LEFT DON LOWER QUADRANT 3829 UNSPECIFIED 12-22-2009 [facility], OTITIS DON R MEDIA 55556 THYROTOX 11-02-2009 KARRIE, W/O KRISTI Akhtar GOITER/OTH CAUSE W/O CRISIS 97537 OPEN 08-19-2009 [facility] FRACTURE HOME MED OTHER [employer] SPECIFIED PART PELVIS OTHER 75912 EPILEPSY 08-13-2009 DESHAUN HANKS PG GEOVANNA Casiano /PP UNSPEC EPIS CARE/NA 89967 REFLUX 07-28-2009 [facility] ESOPHAGITIS GEOVANNA R 36492 UNSPECIFIED 07-28-2009 GEOVANNA HANKS CONSTIPATIO N 94485 CLOSED 07-27-2009 [facility] FRACTURE [facility] UNSPECIFIED INC PART RADIUS W/ULNA 2630 MALNUTRITIO 07-13-2009 [facility] CO N [facility] DEGREE 41974 OTHER 07-13-2009 [facility] CLOSED MEDICAL FRACTURES IMAGING OF DISTAL ASSOCIATES END OF RADIUS 14614 CLOSED 07-13-2009 [facility] FRACTURE OF TRACY DISTAL END OF ULNA V653 DIETARY 07-13-2009 [facility] CO [facility] COUNSELING 462 ACUTE 03-17-2009 LATONYA PHARYNGITIS GEOVANNA R 4660 ACUTE 03-17-2009 [place] R 17757 CLOSED 03-09-2009 [facility] FRACTURE OF [facility] INC UNSPECIFIED PART OF RADIUS 41275 UNSPECIFIED 03-09-2009 [facility] CLOSED MEDICAL FRACTURE OF IMAGING CARPAL ASSOCIATES BONE 97212 UNSPECIFIED 02-03-2009 LATONYA SITE OF GEOVANNA Casiano ANKLE SPRAIN AND STRAIN 43343 CLOSED 01-12-2009 [facility] COLLES [facility] FRACTURE INC 31343 CLOSED 01-08-2009 [facility] FRACTURE OF [facility] LOWER END INC OF RADIUS WITH ULNA E8490 PLACE OF 01-07-2009 [facility] OCCURRENCE, MEDICAL HOME IMAGING ASSOCIATES E8842 ACCIDENTAL 01-07-2009 [facility] FALL FROM MEDICAL CHAIR IMAGING ASSOCIATES 920 CONTUSION 12-04-2008 [facility] OF FACE AMBULANCE SCALP AND SERVICE NECK EXCEPT EYE 43933 OTHER 11-05-2008 COMBINED ABNORMAL PHYSICIANS GLUCOSE LAB V5869 LONG-TERM 10-23-2008 [facility] (CURRENT) HEALTH USE OF CARE INC OTHER MEDICATIONS V5883 ENCOUNTER 10-23-2008 [facility] FOR [facility]ALTH THERAPEUTIC CARE INC DRUG MONITORING 5797 ACUTE URIS 09-15-2008 MIKE HANKS UNSPECIFIED SITE 7823 EDEMA 01-08-2008 GEOVANNA HANKS 7242 LUMBAGO 01-02-2008 [facility] INC 7245 UNSPECIFIED 01-02-2008 [employer] 7859 OTHER 12-05-2007 [facility] SYMPTOMS MEDICAL INVOLVING IMAGING CARDIOVASCU ASSOCIATES LAR SYSTEM 7820 DISTURBANCE 11-25-2007 [facility], OF SKIN DON R SENSATION 8088 UNSPECIFIED 11-13-2007 [facility], CLOSED DON R FRACTURE OF PELVIS 4618 OTHER ACUTE 09-18-2007 LATONYA, SINUSITIS DON R 808 FRACTURE OF 09-02-2007 DEB[facility]AH P[facility]VIS HOME MED EQUIP. TruQu 3489 UNSPECIFIED 08-29-2007 [facility] CONDITION HEALTH OF BRAIN AGENCY V1588 PERSONAL 08-29-2007 [facility] HISTORY OF HEALTH FALL AGENCY 8208 CLOSED 07-31-2007 [facility] FRACTURE AMBULANCE UNSPECIFIED SERVICE PART NECK FEMUR 8082 CLOSED 07-27-2007 [facility] FRACTURE OF MEDICAL PUBIS IMAGING ASSOCIATES 23474 UNS ADVRS 07-27-2007 [facility] EFF OTH RX [facility] MEDICINAL&B INC IOLOGICAL SBSTNC 7937 NONSPC ABN 07-26-2007 [facility] FIND RAD RADIOLOGY & OTH EXM ASSOCIATES [...] 07 08 7. 10 00 HO Ac DE 06 -1 -0 50 00 ME ti [...] 00 7- 0- 00 06 TO ve DE 51 20 20 07 WN IL 80 [...] 00 7- 6- 00 06 TO ve DE 51 20 20 07 WN IL 80 [...] 00 6- 1- 00 06 TO ve DE 51 20 20 07 WN IL 80 [...] 00 6- 0- 00 06 TO ve DE 51 20 20 07 WN IL 80 [...] 8- 8- 00 SI 11 HE ve DE 02 20 20 DE NS ED 20 [...] 3- 2- 00 SI 47 HE ve DE 75 20 20 DE NS IL 98 [...] 3- 1- 00 SI 47 HE ve DE 75 20 20 DE NS IL 98 [...] E TA 10 BL 05 ET 91 DE 68 06 06 0 15 3 WA [...] 09 11 11 E 9 PH DO DE AR N OP MA R CY 50 [...] 09 [address] DE AR OR OP MA G CY 50 [...] 1- 1- 00 SI 44 HE ve DE 75 20 20 DE NS IL 96 [...] 1- 9- 00 SI 44 HE ve DE 75 20 20 DE NS IL 96 [...] 1- 0- 00 SI 44 HE ve DE 75 20 20 DE NS IL 96 [...] ST 56 WS ti TH 81 1- 0 00 SI 48 ON ve YR 81 20 20 DE OX 30 [address] E AR OR 12 MA G 5 CY MC G OF TA BL CY ET NT HI AN A LI 00 12 06 [address] Ac SI 17 -0 -[address] 37 EP ti NO 23 SI 44 HE ve DE 75 20 20 DE NS IL 96 09 10 0 PH DO 10 AR N MA R MG CY TA OF BL ET CY NT HI AN A PH 51 02 05 5 [address] Ac EN 67 -1 -[address] 44 EP ti YT 24 9 7 SI 55 HE ve OI 11 20 [...] ST 56 WS ti YC 80 1 SI 49 ON ve IN 63 20 [...] 2- 3- 00 SI 51 ON ve DE 02 20 20 DE ED 20 [address] SO AR OR LO MA G NE CY 4 OF MG CY DO NT SE HI PK AN A LI 00 12 04 [address] Ac SI 17 -0 -[address] 37 EP ti NO 23 SI 44 HE ve DE 75 20 20 DE NS IL 96 [...] 2- 2- 00 SI 51 ON ve DE 02 20 20 DE ED 20 10 [...] 1- 1- 00 SI 44 HE ve DE 75 20 20 DE NS IL 96 [...] ST 37 EP ti TH 81 1 SI 43 HE ve YR 81 20 20 DE NS OX 90 09 10 IN 1 PH DO E AR N 20 MA R 0 CY MC G OF TA CY BL NT ET HI AN A LI 00 12 06 [address] Ac SI 17 -0 -[address] 37 EP ti NO 23 1- 8 00 SI 44 HE ve DE 75 20 20 DE NS IL 96 09 10 0 PH DO 10 AR N MA R MG CY TA OF BL CY ET NT HI AN A 60 01 01 [address] Ac 25 -1 -[address] 94 EP ti 80 3- 8 00 SI 73 HE ve 23 20 20 0 DE NS 91 10 10 6 PH DO AR N MA R CY OF CY NT HI AN A PI 00 06 25 99 30 30 EA 16 RO Ac RO 09 -1 -[address] 02 LA ti XI 30 SI 65 ND ve CA 75 20 20 DE O M 70 10 10 CH 20 5 PH EN AR G MG MA PS CY C CA PS OF UL CY E NT HI AN A LE 00 12 06 25 [address] Ac VO [...] .0 ST 37 EP ti NO 23 4 SI 44 HE ve DE 75 20 20 DE NS IL 96 09 10 0 PH DO 10 AR N MA R MG CY TA OF BL CY ET NT HI AN A PH 51 12 01 [address] Ac EN 67 -2 -[address] 76 EP ti YT 24 9- 4 SI 33 HE ve OI 11 20 [...] 1- 7- 00 SI 44 HE ve DE 75 20 20 DE NS IL 96 [...] 3- 9- 00 SI 09 HE ve DE 75 20 20 DE NS IL 96 [...] 5- 4- 00 SI 66 HE ve DE 02 20 20 DE NS ED 20 [...] 00 10 15 ME 25 No Ac DE 06 -0 -1 .0 D 42 t [...] 6- 0- 00 SI 22 Av ve DE 02 20 20 DE ai ED 20 [...] 00 27 14 ME 25 No Ac DE 46 -0 -0 .0 D 42 t [...] 00 60 30 ME 25 No Ac DE 46 -0 -2 .0 D 42 t ti OX 20 6- 6- 00 CA 76 Av ve EN 19 20 20 RE 1 ai 00 08 08 la 50 5 PH bl 0 AR e MG MA CY TA BL LL ET C CI 00 02 03 00 10 15 ME 25 No Ac DE 06 -0 -2 .0 D 42 t [...] Procedure DOS Code Location Performer Comment COMPREHEN 13195 [facility] OF [facility] OF [address], [employer]. INC. PANEL NONEMERG A0120 FEDERATED FEDERATED TRNSPRT: 7 MINI-BUS TRANSPORT TRANSPORT MTN ATION SER ATION SER AREA/OTH SYS NONEMERG A0120 FEDERATED FEDERATED TRNSPRT: 7 MINI-BUS TRANSPORT TRANSPORT MTN ATION SER ATION SER AREA/[place] [address] LAB MAX [facility] FREE 7 YOGESH YOGESH THYROXINE HOLDINGS HOLDINGS DRUG 17500 [facility] SCREEN 7 YOGESH YOGESH QUANTITAT HOLDINGS HOLDINGS BROOK[place]NN OXCARBAZE PINE GENERAL 61523 [facility] HEALTH [address] [place] [address] PANEL HOLDINGS HOLDINGS LIPID 48171 Maxine HILLIARD PANEL 7 NANCY FIELDS PSC COLLECTIO 11147 Maxine HILLIARD N VENOUS 7 NANCY FIELDS BLOOD PSC VENIPUNCT URE OPHTH 05102 [facility] 7 XM&EVAL COMPRHNSV ESTAB PT 1/> NONEMERG A0120 FEDERATED FEDERATED TRNSPRT: 7 MINI-BUS TRANSPORT TRANSPORT MTN ATION SER ATION SER AREA/OTH SYS RADIOLOGI 68707 [facility] MEME 7 MEDICAL EXAMINATI IMAGING ON CHEST ASS SINGLE VIEW FRONTAL UNCLASSIF J3490 [facility] MONTEIRO IED DRUGS 7 [facility] INC INC THER 00452 [facility] PROPH/DX 7 [facility] NJX IV INC INC PUSH SINGLE/1S T SBST/DRUG NONEMERG A0120 FEDERATED FEDERATED TRNSPRT: 7 MINI-BUS TRANSPORT TRANSPORT MTN ATION SER ATION SER AREA/OTH SYS NONEMERG A0120 FEDERATED FEDERATED TRNSPRT: 7 MINI-BUS TRANSPORT TRANSPORT MTN ATION SER ATION SER AREA/OTH SYS ECG 06407 [facility] MONTEIRO ROUTINE 7 [facility] ECG INC INC W/LEAST 12 LDS TRCG ONLY W/O I&R COMPREHEN 92012 [facility] MONTEIRO SIVE 7 [facility]OS[facility] METABOLIC INC INC PANEL COLLECTIO 91424 [facility] MONTEIRO N VENOUS 7 [facility] BLOOD INC INC VENIPUNCT URE ECG 19482 [facility] GARCIA ROUTINE 7 [facility] W/LEAST P 12 LDS I&R ONLY THERAPEUT 16394 Maxine HILLIARD IC 6 NANCY FIELDS PROPHYLAC PSC TIC/DX INJECTION SUBQ/IM NONEMERG A0120 FEDERATED FEDERATED TRNSPRT: 6 MINI-BUS TRANSPORT TRANSPORT MTN ATION SER ATION SER AREA/OTH SYS UNCLASSIF J3490 [facility] IED DRUGS 6 [facility] INC INC HEPATOBIL 82677 [facility] SYST 6 [facility] IMAG INC INC INC GB W/PHARMA INTERVENJ NONEMERG A0120 FEDERATED FEDERATED TRNSPRT: 6 MINI-BUS TRANSPORT TRANSPORT MTN ATION [place] AREA/[place] [address] [facility] ABDOMINAL 6 [facility] REAL INC INC TIME W/IMAGE LIMITED RADEX 14522 CA[facility]O CA[facility] ESOPHAGUS 6 [facility] INC INC COMPREHEN 98591 [facility] SIVE 6 DIAGNOSTI DIAGNOSTI METABOLIC CS CS PANEL COLLECTIO 66595 A C KILPELA N VENOUS 6 NANCY FIELDS JEA BLOOD PSC VENIPUNCT URE NONEMERG A0120 FEDERATED FEDERATED TRNSPRT: 6 [facility] TRANSPORT TRANSPORT MTN ATION SER ATION SER AREA/OTH SYS NONEMERG A0120 FEDERATED FEDERATED TRNSPRT: 6 [facility] TRANSPORT TRANSPORT MTN ATION SER ATION SER AREA/[place] [address] CAYETANO MONTEIRO FREE 6 [facility] [place] [address] CAYETANO MONTEIRO THYROID 6 [facility] STIMULATI INC INC NG HORMONE TSH COMPREHEN [id number] LAB MAX [facility] PANEL COLLECTIO 09367 A C KILPELA N VENOUS 6 NANCY FIELDS JEA BLOOD PSC VENIPUNCT URE NONEMERG A0120 FEDERATED FEDERATED TRNSPRT: 6 [facility] TRANSPORT TRANSPORT MTN ATION SER ATION SER AREA/OTH SYS NONEMERG A0120 FEDERATED FEDERATED TRNSPRT: 6 [facility]I-[facility] TRANSPORT TRANSPORT MTN ATION SER ATION SER AREA/OTH SYS RADEX 35389 CAYETANO MONTEIRO ESOPHAGUS 6 [place] [address] CAYETANO MONTEIRO THYROID 6 [facility] [place]IMULAT[place] [address] CAYETANO MONTEIRO FREE 6 [facility] THYROXINE INC INC COLLECTIO 13967 CAYETANO MONTEIRO N VENOUS 6 [facility] BLOOD INC INC VENIPUNCT URE NONEMERG A0120 FEDERATED FEDERATED TRNSPRT: 6 [facility] TRANSPORT TRANSPORT MTN ATION SER ATION SER AREA/OTH SYS NONEMERG A0120 FEDERATED FEDERATED TRNSPRT: 6 [facility] TRANSPORT TRANSPORT MTN ATION SER ATION SER AREA/OTH SYS NONEMERG A0120 FEDERATED FEDERATED TRNSPRT: 6 [facility] TRANSPORT TRANSPORT MTN ATION SER ATION SER AREA/OTH SYS RADEX 57899 CAYETANO MONTEIRO RIBS UNI 6 [facility] W/POSTERO INC INC ANT CH MINIMUM 3 VIEWS NONEMERG A0120 FEDERATED FEDERATED TRNSPRT: 6 [facility] TRANSPORT TRANSPORT MTN ATION SER ATION SER AREA/[place] [address] LAB MAX [place] MAGNESIUM 6 [place] [address] LAB MAX LAB MAX FREE 6 [facility] Y[facility] [address] LAB MAX LAB MAX THYROID 6 [facility] STIMULATI HOLDINGS HOLDINGS NG HORMONE TSH COMPREHEN 03111 [facility] MAX [facility] MAX SIVE 6 [facility] METABOLIC HOLDINGS HOLDINGS PANEL DRUG 69093 LAB MAX LAB MAX SCREEN 6 [facility] QUANTITAT HOLDINGS HOLDINGS [place] OXCARBAZE P[place] THERAPEUT 02157 A C A C IC 6 NANCY [...] ATION SER ATION SER AREA/OTH SYS COMPUTER- 97031 CAYETANO MONTEIRO AIDED 6 [facility] DETECTION INC INC SCREENING MAMMOGRAP HY SCREENING [id number] CAYETANO MONTEIRO 6 [facility] MAMMOGRAP INC INC HY KEVIN INCL CAD WHEN PERFORMD NONEMERG A0120 FEDERATED FEDERATED TRNSPRT: 6 [facility] TRANSPORT [facility]/OTH SYS NONEMERG A0120 FEDERATED FEDERATED TRNSPRT: 6 [facility] TRANSPORT [facility] [facility] AREA/OTH SYS CYTP 07313 LAB MAX LAB MAX CERV/VAG 6 YOGESH YOGESH AUTO THIN HOLDINGS HOLDINGS LAYER PREP MNL SCREEN NONEMERG A0120 FEDERATED FEDERATED TRNSPRT: 6 MINI-BUS TRANSPORT TRANSPORT [facility] [address] LAB MAX LAB MAX THYROID 6 YOGESH YOGESH STIMULATI HOLDINGS HOLDINGS NG HORMONE TSH DRUG 79188 LAB MAX LAB MAX SCREEN 6 YOGESH YOGESH QUANTITAT HOLDINGS HOLDINGS BROOKLYNN OXCARBAZE PINE BASIC 04753 LAB MAX LAB MAX METABOLIC 6 YOGESH YOGESH PANEL [place] [address] LAB MAX LAB MAX THYROXINE 6 YOGESH [place] [address] LAB MAX LAB MAX TRIIODOTH 6 YOGESH YOGESH YRONINE HOLDINGS HOLDINGS T3 TOTAL TT3 THYROID 63428 LAB MAX LAB MAX HORM 6 YOGESH YOGESH UPTK/THYR HOLDINGS HOLDINGS OID HORMONE BINDING RATIO CHOLESTER 11546 A C CRUZ OL 6 NANCY OLSON SERUM/WHO PSC LE BLOOD TOTAL GLUCOSE 06894 A C NANCY QUANTITAT 6 NANCY OLSON BROOKLYNN BLOOD PSC XCPT REAGENT STRIP BLOOD 89891 A C CRUZ COUNT 6 NANCY OLSON COMPLETE PSC AUTO&AUTO DIFRNTL WBC LIPOPROTE 55260 A C NANCY IN DIR 6 NANCY OLSON TERESA HIGH PSC DENSITY CHOLESTER OL TRANSFERA 56984 A C NANCY SE 6 NANCY OLSON ASPARTATE PSC AMINO AST SGOT TRANSFERA 86598 A C NANCY SE 6 CRUZ MD WHITNEY [place] [address] Maxine CRUZ TRIGLYCER 6 NANCY FIELDS WHITNEY IDES PSC [...] SER ATION SER AREA/[place] [address] [facility] THYROID 5 DIAGNOSTI DIAGNOSTI STIMULATI CS CS NG HORMONE TSH BASIC 98852 [facility] METABOLIC 5 DIAGNOSTI DIAGNOSTI PANEL CS CS CALCIUM TOTAL BLOOD 05315 Maxine GOOD MARTY COUNT 5 NANCY FIELDS COMPLETE PSC AUTO&AUTO DIFRNTL WBC NONEMERG A0120 FEDERATED FEDERATED TRNSPRT: 5 MINI-BUS [...] ATION SER ATION SER AREA/OTH SYS RADIOLOGI 91666 [facility] 5 MEDICAL YAZ EXAMINATI IMAGING ON NECK ASS SOFT TISSUE NONEMERG A0120 FEDERATED FEDERATED TRNSPRT: 5 MINI-BUS TRANSPORT TRANSPORT MTN ATION SER ATION SER AREA/OTH SYS NONEMERG A0120 FEDERATED FEDERATED TRNSPRT: 5 MINI-BUS TRANSPORT TRANSPORT MTN ATION SER ATION SER AREA/OTH SYS NONEMERG A0120 FEDERATED FEDERATED TRNSPRT: 5 MINI-BUS TRANSPORT TRANSPORT MTN ATION SER ATION SER AREA/[place] [address] [facility] THYROID 5 DIAGNOSTI DIAGNOSTI STIMULATI CS CS NG HORMONE TSH NONEMERG A0120 FEDERATED FEDERATED TRNSPRT: 5 MINI-BUS TRANSPORT TRANSPORT MTN ATION SER ATION SER AREA/OTH SYS NONEMERG A0120 FEDERATED FEDERATED TRNSPRT: 5 MINI-BUS TRANSPORT TRANSPORT MTN ATION SER ATION SER AREA/OTH SYS DEBRIDEME 29249 KARRIE YOON NT 5 KERI KERI MASTOIDEC JUANCHO CAVITY SIMPLE NONEMERG A0120 FEDERATED FEDERATED TRNSPRT: 5 MINI-BUS TRANSPORT TRANSPORT [facility] AREA/OTH SYS NONEMERG A0120 FEDERATED FEDERATED TRNSPRT: 5 MINI-BUS TRANSPORT TRANSPORT [facility] AREA/OTH SYS NONEMERG A0120 FEDERATED FEDERATED TRNSPRT: 4 TRANS MIN[facility]BUS TRANSPORT [facility] [place] [facility] [address] [facility] THYROID 4 DIAGNOSTI DIAGNOSTI STIMULATI CS CS NG HORMONE TSH NONEMERG A0120 FEDERATED FEDERATED TRNSPRT: 4 TRANS [facility]BUS TRANSPORT [facility] AREA/OTH SYS LEVEL III 50744 P&C LABS, PEDRITO SURG 4 [facility] SOLE PATHOLOGY GROSS&TANI ROSCOPIC EXAM DEBRIDEME 20965 KARRIE YOON NT 4 KERI KERI MASTOIDEC JUANCHO [place] 777[address] CAYETANO MONTEIRO XTRNL 4 [facility] AUDITORY INC INC CANAL ANES TYMPANOST 83407 CAYETANO MONTEIRO TAISHA 4 [facility] GENERAL INC INC ANESTHESI A INJECTION S0077 CAYETANO MONTEIRO 4 [facility] CLINDAMYC INC INC IN PHOSPHATE 300 MG BASIC 10868 CAYETANO MONTEIRO METABOLIC 4 [facility] PANEL INC INC CALCIUM TOTAL ECG 82409 CAYETANO BRONSON JR ROUTINE 4 [facility] W/LEAST P 12 LDS I&R ONLY ANESTHESI 48835 [facility] A 4 ANESTH SHE EXTERNAL OF THE MIDDLE & BLUE INNER EAR W/BX NOS BLOOD 13387 CAYETANO MONTEIRO COUNT 4 [facility] COMPLETE INC INC AUTO&AUTO DIFRNTL WBC NONEMERG A0120 FEDERATED FEDERATED TRNSPRT: 4 TRANS [facility]I-BUS TRANSPORT [facility] AREA/OTH SYS NONEMERG A0120 FEDERATED FEDERATED TRNSPRT: 4 TRANS MINI-BUS TRANSPORT [facility] MTN ATION SER JUSTINE AREA/OTH SYS DEBRIDEME 10888 KARRIE YOON NT 4 KERI KERI MASTOIDEC JUANCHO CAVITY SIMPLE NONEMERG A0120 FEDERATED FEDERATED TRNSPRT: 4 TRANS MINI-BUS TRANSPORT [facility] AREA/OTH SYS BLOOD 07949 FLORENTINO MARTY FLORENTINO MARTY COUNT 4 COMPLETE AUTO&AUTO DIFRNTL WBC COMPREHEN 67591 [facility] SIVE 4 DIAGNOSTI DIAGNOSTI METABOLIC CS CS PANEL NONEMERG A0120 FEDERATED FEDERATED TRNSPRT: 4 TRANS MINI-BUS TRANSPORT [facility] AREA/OTH SYS DEBRIDEME 92243 KARRIE YOON NT 4 KERI KERI MASTOIDEC JUANCHO CAVITY SIMPLE NONEMERG A0120 FEDERATED FEDERATED TRNSPRT: 4 TRANS MINI-BUS TRANSPORT [facility] MDN [facility] AREA/OTH SYS ECG 33982 FLORENTINO MARTY FLORENTINO MARTY ROUTINE 4 ECG W/LEAST 12 LDS W/I&R NONEMERG A0120 FEDERATED FEDERATED TRNSPRT: 4 TRANS MINI-BUS TRANSPORT [facility]N [facility] AREA/OTH SYS DEBRIDEME 10133 KARRIE YOON NT 4 KERI KERI MASTOIDEC JUANCHO CAVITY SIMPLE OPHTH 85152 [facility] 4 ANG ANG XM&EVAL COMPRHNSV ESTAB PT 1/> NONEMERG A0120 FEDERATED FEDERATED TRNSPRT: 4 TRANS MINI-BUS TRANSPORT [facility] AREA/OTH SYS NONEMERG A0120 FEDERATED FEDERATED TRNSPRT: 4 MINI-BUS TRANSPORT TRANSPORT MTN [facility] AREA/OTH SYS NONEMERG A0120 FEDERATED FEDERATED TRNSPRT: 4 MINI-BUS TRANSPORT TRANSPORT MTN [facility]/OTH SYS COMPUTER- 12128 CAYETANO MONTEIRO AIDED 4 [facility] DETECTION INC INC SCREENING MAMMOGRAP HY SCREENING G0202 CAYETANO MONTEIRO 4 [facility] MAMMOGRAP INC INC HY [place]EV[place] [address] [facility] THYROID 4 DIAGNOSTI DIAGNOSTI STIMULATI CS CS NG HORMONE TSH BLOOD 34466 FLORENTINO FIELDS MARTY COUNT 4 COMPLETE AUTO&AUTO DIFRNTL WBC [...] ATION SER ATION SER AREA/OTH SYS DEBRIDEME 88567 KARRIE YOON NT 3 KERI KERI MASTOIDEC JUANCHO CAVITY SIMPLE NONEMERG A0120 FEDERATED FEDERATED TRNSPRT: 3 MINI-BUS TRANSPORT TRANSPORT MTN ATION SER ATION SER AREA/OTH SYS NONEMERG A0120 FEDERATED FEDERATED TRNSPRT: 3 MINI-BUS TRANSPORT TRANSPORT MTN ATION SER ATION SER AREA/OTH SYS DEBRIDEME 47658 KARRIE YOON NT 3 KERI KERI MASTOIDEC JUANCHO CAVITY SIMPLE NONEMERG A0120 FEDERATED FEDERATED TRNSPRT: 3 MINI-BUS TRANSPORT TRANSPORT MTN ATION SER ATION SER AREA/OTH SYS NONEMERG A0120 LKLP CAC LKLP CAC TRNSPRT: 3 INC INC MINI-BUS REGION 11 REGION 11 MTN AREA/OTH SYS LIPID 40561 Maxine GOOD MARTY PANEL 3 NANCY FIELDS PSC BASIC 68997 [facility] METABOLIC 3 DIAGNOSTI DIAGNOSTI PANEL CS CS CALCIUM TOTAL COLLECTIO 79891 Maxine GOOD MARTY N VENOUS 3 NANCY [place] [address] [facility] THYROID 3 DIAGNOSTI DIAGNOSTI STIMULATI CS NG HORMONE TSH GLUCOSE 49701 Maxine GOOD MARTY QUANTITAT 3 NANCY FIELDS BROOKLYNN BLOOD PSC XCPT REAGENT STRIP DIRECT G0154 [facility] SK[facility] AGENCY AGENCY HH/HOSPIC E EA 15 MIN QUANTITAT 73077 CAYETANO MONTEIRO ION DRUG 3 [facility] NOT INC INC ELSEWHERE SPECIFIED DIRECT G0154 [facility] SKILL 3 [facility] AGENCY AGENCY HH/HOSPIC E EA 15 MIN NONEMERG A0120 LKLP CAC LKLP CAC TRNSPRT: 3 INC INC MINI-BUS REGION 11 REGION 11 [facility] AREA/OT SYS GROUND A0425 [facility] MILEAGE 3 AMBULANCE AMBULANCE PER SERVICE SERVICE STATUTE MILE AMBULANCE A0429 [facility] SERVICE 3 AMBULANCE AMBULANCE BLS SERVICE [place] [address] CAYETANO MONTEIRO FREE 3 [facility] THYROXINE INC INC US SOFT 55316 CAYETANO MONTEIRO TISSUE 3 [facility] HEAD & INC [place] [address] CAYETANO MONTEIRO THYROID 3 [facility] STIMULATI INC INC NG HORMONE TSH URNLS DIP 98809 [facility]ANKS HANKS 3 DON DON STICK/TAB LET RGNT NON-AUTO W/O MICRSCP SCREENING G0202 [facility] 3 YAZ YAZ MAMMOGRAP HY KEVIN INCL CAD WHEN PERFORMD - 53752 MEME MEME AIDED 3 YAZ YAZ DETECTION [place] [address] CAYETANO MONTEIRO THYROID 3 [facility] STIMULATI INC INC NG HORMONE TSH COMPREHEN 04478 CAYETANO MONTEIRO SIVE 3 [facility] METABOLIC INC INC PANEL DRUG 80638 CAYETANO MONTEIRO SCREEN 3 [facility] QUANTITAT INC INC BROOKLYNN PHENYTOIN TOTAL LIPID 08922 CAYETANO AVERYON PANEL 3 [facility] INC INC NONEMERG A0120 LKLP LKLP TRNSPRT: 3 COMMUNITY COMMUNITY MINI-BUS ACTION ACTION MTN AREA/OTH SYS CYTP 66173 [facility] SLIDES 3 DIAGNOSTI DIAGNOSTI CERV/VAG [...] HH/HOSPIC E EA 15 MIN RADEX HIP 09129 [facility] 2 MEDICAL YAZ UNILATERA IMAGING L ASS COMPLETE MINIMUM 2 VIEWS RADIOLOGI 69221 [facility] 2 MEDICAL YAZ EXAMINATI IMAGING ON PELVIS ASS 1/2 VIEWS AMBULANCE A0429 [facility] SERVICE 2 AMBULANCE AMBULANCE BLS SERVICE SERVICE EMERGENCY TRANSPORT GROUND A0425 [facility] AM[facility]ULANCE PER SERVICE SERVICE STATUTE MILE RADIOLOGI 84345 [facility] 2 MEDICAL YAZ EXAMINATI IMAGING ON PELVIS ASS 1/2 VIEWS RADEX HIP 36626 CAYETANO MONTEIRO 2 [facility] UNILATERA INC INC L COMPLETE MINIMUM 2 VIEWS RADEX 20310 [facility] H[facility] 2 MEDICAL YAZ BILATERAL IMAGING 2 VIEWS ASS ANTEROPOS T PELVIS RADEX 85270 [facility] SPINE 2 MEDICAL YAZ LUMBOSACR IMAGING AL ASS MINIMUM 4 VIEWS NONEMERG A0120 LK LK TRNSPRT: 2 [facility] MINI-BUS ACTION ACTION MTN AREA/OTH SYS RADEX 66277 [facility]AN[facility] HANKS SHOULDER 2 DON DON COMPLETE MINIMUM 2 VIEWS INCISION 95211 LATONYA HANKS THROMBOSE 2 DON DON D HEMORRHOI D EXTERNAL NONEMERG A0120 LK LK TRNSPRT: 2 [facility] MINI-BUS ACTION ACTION MTN AREA/OTH SYS COMPREHEN 67576 CAYETANO MONTEIRO SIVE 2 [facility] HOSP METABOLIC INC INC PANEL NONEMERG A0120 [facility] TRNSPRT: 2 [facility] MINI-BUS ACTION ACTION MTN AREA/OTH SYS DESTRUCTI 07537 HANKSLorena HOLGUINS ON 2 DON DON PREMALIGN ANT LESION 1ST NONEMERG A0120 LK LK TRNSPRT: 2 [facility] MINI-BUS ACTION ACTION MTN AREA/OTH SYS NONEMERG A0120 [facility] TRNSPRT: 2 [facility] MINI-BUS ACTION ACTION MTN AREA/OTH SYS LIPID 11064 CAYETANO MONTEIRO PANEL [address] [facility] INC INC DRUG 20618 CAYETANO MONTEIRO SCREEN 2 [facility] HOSP QUANTITAT INC INC BROOKLYNN PHENYTOIN TOTAL COMPREHEN 11547 CAYETANO MONTEIRO SIVE 2 [facility]OS[place] [address] CAYETANO MONTEIRO THYROID [address] [facility] STIMULATI INC INC NG HORMONE TSH SCREENING G0202 [facility] 2 MEDICAL YAZ MAMMOGRAP IMAGING HY KEVIN ASS INCL CAD WHEN PERFORMD COMPUTER- 50072 [facility] AIDED 2 MEDICAL YAZ DETECTION IMAGING ASS [...] HOME HLTH/HOSP ICE EA 15 MIN OPHTH 44219 [facility] 2 VISION ANG XM&EVAL COMPRHNSV ESTAB PT 1/> COMPREHEN 88249 CAYETANO MONTEIRO SIVE 1 [facility] [address] CAYETANO MONTEIRO THYROID 1 [facility] STIMULATI INC INC NG HORMONE TSH DRUG 53375 CAYETANO MONTEIRO SCREEN 1 [facility] QUANTITAT INC INC BROOKLYNN PHENYTOIN TOTAL LIPID 96461 CAYETANO MONTEIRO PANEL 1 [facility] INC INC BLOOD 77703 CAYETANO MONTEIRO COUNT 1 [facility] COMPLETE INC INC AUTO&AUTO DIFRNTL WBC QUANTITAT 39348 CAYETANO MONTEIRO ION DRUG 1 [facility] NOT INC INC ELSEWHERE SPECIFIED COMPREHEN 54325 CAYETANO MONTEIRO SIVE 1 [facility] METABOLIC INC INC PANEL SELF-CARE 84627 SUPPORT SUPPORT /HOME 1 SOURCE SOURCE MGMT TRAINING EACH 15 MINUTES SELF-CARE 59484 SUPPORT SUPPORT /HOME 1 SOURCE SOURCE MGMT TRAINING EACH 15 MINUTES SELF-CARE 67016 SUPPORT SUPPORT /HOME 1 SOURCE SOURCE MGMT TRAINING EACH 15 MINUTES SELF-CARE 31708 SUPPORT SUPPORT /HOME 1 SOURCE SOURCE MGMT TRAINING EACH 15 MINUTES SELF-CARE 55714 SUPPORT SUPPORT /HOME 1 SOURCE SOURCE MGMT TRAINING EACH 15 MINUTES SELF-CARE 27346 SUPPORT SUPPORT /HOME 1 SOURCE SOURCE MGMT TRAINING EACH 15 MINUTES SELF-CARE 54787 SUPPORT SUPPORT /HOME 1 SOURCE SOURCE MGMT TRAINING EACH 15 MINUTES SELF-CARE 04785 SUPPORT SUPPORT /HOME 1 SOURCE SOURCE MGMT TRAINING EACH 15 MINUTES SELF-CARE 58950 SUPPORT SUPPORT /HOME 1 SOURCE SOURCE MGMT TRAINING EACH 15 MINUTES SELF-CARE 20704 SUPPORT SUPPORT /HOME 1 SOURCE SOURCE MGMT TRAINING EACH 15 MINUTES SELF-CARE 62352 SUPPORT SUPPORT /HOME 1 SOURCE SOURCE MGMT TRAINING EACH 15 MINUTES QUANTITAT 66440 CAYETANO CAYETANO ION DRUG 1 [facility] NOT INC INC ELSEWHERE SPECIFIED BASIC 03978 CAYETANO AVERYON METABOLIC 1 [facility] PANEL INC INC CALCIUM TOTAL BLOOD 12730 CAYETANO CAYETANO COUNT 1 [facility] COMPLETE INC INC AUTO&AUTO DIFRNTL [facility] G0378 CAYETANO CAYETANO OBSERVATI 1 [facility] ON INC INC SERVICE PER HOUR OBSERVATI 81053 FAMILY MULBERRY ON CARE 1 CARE HARRY DISCHARGE ASSOCIATE S [facility] G0378 CAYETANO CAYETANO OBSERVATI 1 [facility] ON INC INC SERVICE PER HOUR AMB A0427 [facility] SERVICE 1 AMBULANCE AMBULANCE ALS SERVICE SERVICE EMERGENCY TRANSPORT LEVEL 1 [place] [address] CAYETANO MONTEIRO STREPTOCO 1 [facility] CCUS INC INC GROUP A INITIAL 81079 FAMILY MULBERRY OBSERVATI 1 CARE HARRY ON ASSOCIATE CARE/DAY S 50 MINUTES ALS A0398 EMELIA [place] ROUTINE 1 AMBULANCE AMBULANCE DISPOSABL SERVICE SERVICE E SUPPLIES BLOOD 25417 CAYETANO AVERYON COUNT 1 [facility] COMPLETE INC INC AUTO&AUTO DIFRNTL WBC URNLS DIP 54839 CAYETANO AVERYON 1 [facility] STICK/TAB INC INC LET REAGENT AUTO MICROSCOP Y QUANTITAT 17950 CAYETANO MONTEIRO ION DRUG 1 [facility] [place] [address] CAYETANO MONTEIRO INFUSION 1 [facility] THERAPY/P INC INC ROPHYLAXI S /DX 1ST TO [address] [place] [address] CAYETANO MONTEIRO LIPASE 1 [place] [address] CAYETANO MONTEIRO AMYLASE 1 [facility] INC INC COMPREHEN 06341 CAYETANO MONTEIRO SIVE 1 [facility] [place] [address] CAYETANO MONTEIRO INFUSION 1 [facility] THERAPY INC INC PROPHYLAX IS/DX EA HOUR GROUND A0425 [facility] 1 AMBULANCE AMBULANCE [place] [address] CAYETANO MONTEIRO INFUSION 1 [facility] THERAPY INC INC PROPHYLAX IS/DX EA HOUR COMPREHEN 52789 CAYETANO MONTEIRO SIVE 1 [facility] METABOLIC INC INC PANEL CREATINE 65125 CAYETANO MONTEIRO KINASE MB 1 [facility] [place] [address] CAYETANO MONTEIRO AMYLASE 1 [facility] INC INC 3D 94051 [facility] STODDARDMEME RENDERING 1 MEDICAL YAZ W/INTERP IMAGING & [place] [address] CAYETANO MONTEIRO LIPASE 1 [facility] INC INC CREATINE 97525 CAYETANO MONTEIRO KINASE 1 [facility] [place] [address] CAYETANO MONTEIRO INFUSION 1 [facility] THERAPY/P INC INC ROPHYLAXI S /DX 1ST TO 1 [place] [address] CAYETANO MONTEIRO TROPONIN 1 [facility] QUANTITAT INC INC BROOKLYNN BLOOD 48252 CAYETANO MONTEIRO COUNT 1 [facility] COMPLETE INC INC AUTO&[place] [address] [facility] VALENTINE HEAD/BRAI 1 MEDICAL YAZ N W/O IMAGING CONTRAST ASS MATERIAL RADIOLOGI 73971 [facility] STODDARDMEME C 1 MEDICAL YAZ EXAMINATI IMAGING ON CHEST ASS SINGLE VIEW FRONTAL BLOOD 51841 CAYETANO MONTEIRO COUNT 1 [facility] COMPLETE INC INC AUTO&AUTO DIFRNTL WBC QUANTITAT 68585 CAYETANO MONTEIRO ION DRUG 1 [facility] NOT INC INC ELSEWHERE SPECIFIED COMPREHEN 96516 CAYETANO MONTEIRO SIVE 1 [facility] METABOLIC INC INC PANEL SELF-CARE 29063 SUPPORT SUPPORT /HOME 1 SOURCE SOURCE MGMT TRAINING EACH 15 MINUTES SELF-CARE 29625 SUPPORT SUPPORT /HOME 1 SOURCE SOURCE MGMT TRAINING EACH 15 MINUTES SELF-CARE 38388 SUPPORT SUPPORT /HOME 1 SOURCE SOURCE MGMT TRAINING EACH 15 MINUTES SELF-CARE 63879 SUPPORT SUPPORT /HOME 1 SOURCE SOURCE MGMT TRAINING EACH [address] [place] [address] CAYETANO MONTEIRO THYROID 1 [facility] STIMULATI INC INC NG HORMONE TSH COMPREHEN 04091 CAYETANO MONTEIRO SIVE 1 [facility] METABOLIC INC INC PANEL BLOOD 08743 CAYETANO MONTEIRO COUNT [address] [facility] COMPLETE INC INC AUTO&AUTO DIFRNTL WBC LIPID 21742 CAYETANO MONTEIRO PANEL 1 [facility] INC INC DRUG 03679 CAYETANO AVERYON SCREEN [address] [facility] QUANTITAT INC INC BROOKLYNN PHENYTOIN TOTAL SCREENING G0202 [facility] 1 MEDICAL YAZ MAMMOGRAP IMAGING HY KEVIN ASS INCL CAD WHEN PERFORMD COMPUTER- 52934 [facility] AIDED 1 MEDICAL YAZ DETECTION IMAGING ASS SCREENING MAMMOGRAP HY DEBRIDEME 92758 KARRIE YOON NT 1 KERI KERI MASTOIDEC JUANCHO CAVITY SIMPLE BLOOD 30578 CAYETANO MONTEIRO COUNT [address] [facility] [facility] COMPLETE INC INC AUTO&AUTO DIFRNTL WBC BASIC 93342 CAYETANO MONTEIRO METABOLIC 1 [facility]OSP PANEL INC INC CALCIUM TOTAL DRUG 93612 CAYETANO AVERYON SCREEN [address] [facility] [facility] QUANTITAT INC INC BROOK[place]NN PHENYTOIN TOTAL GROUND A0425 [facility] 1 AMBULANCE AMBULANCE PER SERVICE SERVICE STATUTE MILE AMBULANCE A0429 [facility] SERVICE 1 AMBULANCE AMBULANCE BLS SERVICE SERVICE EMERGENCY TRANSPORT DRUG 10951 CAYETANO AVERYON SCREEN 1 [facility] QUANTITAT INC [place] [address] CAYETANO MONTEIRO THYROID [address] [facility] STIMULATI INC INC NG HORMONE TSH SELF-CARE 74685 SUPPORT SUPPORT /HOME 0 SOURCE SOURCE MGMT TRAINING EACH 15 MINUTES SELF-CARE 62212 SUPPORT SUPPORT /HOME 0 SOURCE SOURCE MGMT TRAINING EACH 15 MINUTES SELF-CARE 09359 SUPPORT SUPPORT /HOME 0 SOURCE SOURCE MGMT TRAINING EACH 15 MINUTES SELF-CARE 79184 SUPPORT SUPPORT /HOME 0 SOURCE SOURCE MGMT TRAINING EACH 15 MINUTES SELF-CARE 33371 SUPPORT SUPPORT /HOME 0 SOURCE SOURCE MGMT TRAINING EACH 15 MINUTES DEBRIDEME 06261 KARRIE YOON NT 0 KERI KERI MASTOIDEC JUANCHO CAVITY SIMPLE SELF-CARE 57063 SUPPORT SUPPORT /HOME 0 SOURCE SOURCE MGMT TRAINING EACH 15 MINUTES SELF-CARE 68616 SUPPORT SUPPORT /HOME 0 SOURCE SOURCE MGMT TRAINING EACH 15 MINUTES SELF-CARE 43655 SUPPORT SUPPORT /HOME 0 SOURCE SOURCE MGMT TRAINING EACH 15 MINUTES SELF-CARE 65796 SUPPORT SUPPORT /HOME 0 SOURCE SOURCE MGMT TRAINING EACH 15 MINUTES SELF-CARE 81079 SUPPORT SUPPORT /HOME 0 SOURCE SOURCE MGMT TRAINING EACH [address] [place] [address] CARLOS EASONCHER HEAD/BRAI 0 MEDICAL YAZ N W/O IMAGING CONTRAST ASS MATERIAL DRUG 61424 CAYETANO MONTEIRO SCREEN [address] [facility] QUANTITAT INC INC BROOKLYNN PHENYTOIN TOTAL 3D 04412 CAYETANO MONTEIRO RENDERING 0 [facility] W/INTERP INC INC & POSTPROCE SS SUPERVISI ON BASIC 50202 CAYETANO MONTEIRO METABOLIC 0 [facility] PANEL INC INC CALCIUM TOTAL BLOOD 97213 CAYETANO MONTEIRO COUNT 0 [facility] COMPLETE INC INC AUTO&AUTO DIFRNTL WBC SELF-CARE 19811 SUPPORT SUPPORT /HOME 0 SOURCE SOURCE MGMT TRAINING EACH 15 MINUTES SELF-CARE 25761 SUPPORT SUPPORT /HOME 0 SOURCE SOURCE MGMT TRAINING EACH 15 MINUTES SELF-CARE 19618 SUPPORT SUPPORT /HOME 0 SOURCE SOURCE MGMT TRAINING EACH 15 MINUTES SELF-CARE 23562 SUPPORT SUPPORT /HOME 0 SOURCE SOURCE MGMT TRAINING EACH 15 MINUTES SELF-CARE 70320 SUPPORT SUPPORT /HOME 0 SOURCE SOURCE MGMT TRAINING EACH 15 MINUTES SELF-CARE 07686 SUPPORT SUPPORT /HOME 0 SOURCE SOURCE MGMT TRAINING EACH 15 MINUTES SELF-CARE 40480 SUPPORT SUPPORT /HOME 0 SOURCE SOURCE MGMT TRAINING EACH 15 MINUTES SELF-CARE 87560 SUPPORT SUPPORT /HOME 0 SOURCE SOURCE MGMT TRAINING EACH 15 MINUTES SELF-CARE 24359 SUPPORT SUPPORT /HOME 0 SOURCE SOURCE MGMT TRAINING EACH 15 MINUTES SELF-CARE 89072 SUPPORT SUPPORT /HOME 0 SOURCE SOURCE MGMT TRAINING EACH 15 MINUTES SELF-CARE 85453 SUPPORT SUPPORT /HOME 0 SOURCE SOURCE MGMT TRAINING EACH 15 MINUTES SELF-CARE 79211 SUPPORT SUPPORT /HOME 0 SOURCE SOURCE MGMT TRAINING EACH 15 MINUTES SELF-CARE 70451 SUPPORT SUPPORT /HOME 0 SOURCE SOURCE MGMT TRAINING EACH 15 MINUTES SELF-CARE 07208 SUPPORT SUPPORT /HOME 0 SOURCE SOURCE MGMT TRAINING EACH 15 MINUTES SELF-CARE 90286 SUPPORT SUPPORT /HOME 0 SOURCE SOURCE MGMT TRAINING EACH 15 MINUTES DEBRIDEME 21570 KARRIE YOON NT 0 KERI KERI MASTOIDEC JUANCHO CAVITY SIMPLE MICROSURG 01145 KARRIE YOON TQS REQ 0 KERI KERI USE OPERATING MICROSCOP E SELF-CARE 85653 SUPPORT SUPPORT /HOME 0 SOURCE SOURCE MGMT TRAINING EACH 15 MINUTES SELF-CARE 21237 SUPPORT SUPPORT /HOME 0 SOURCE SOURCE MGMT TRAINING EACH 15 MINUTES SELF-CARE 06942 SUPPORT SUPPORT /HOME 0 SOURCE SOURCE MGMT TRAINING EACH 15 MINUTES SELF-CARE 74012 SUPPORT SUPPORT /HOME 0 SOURCE SOURCE MGMT TRAINING EACH 15 MINUTES SELF-CARE 35765 SUPPORT SUPPORT /HOME 0 SOURCE SOURCE MGMT TRAINING EACH 15 MINUTES SELF-CARE 67154 SUPPORT SUPPORT /HOME 0 SOURCE SOURCE MGMT TRAINING EACH 15 MINUTES SELF-CARE 10292 SUPPORT SUPPORT /HOME 0 SOURCE SOURCE MGMT TRAINING EACH 15 MINUTES SELF-CARE 34014 SUPPORT SUPPORT /HOME 0 SOURCE SOURCE MGMT TRAINING EACH 15 MINUTES DRUG 46779 [facility] [place] [address] CA[facility]ET[facility] THYROID 0 [facility] STIMULATI INC INC NG HORMONE TSH SELF-CARE 31437 SUPPORT SUPPORT /HOME 0 SOURCE SOURCE MGMT TRAINING EACH 15 MINUTES SELF-CARE 60007 SUPPORT SUPPORT /HOME 0 SOURCE SOURCE MGMT TRAINING EACH 15 MINUTES SELF-CARE 96839 SUPPORT SUPPORT /HOME 0 SOURCE SOURCE MGMT TRAINING EACH 15 MINUTES SELF-CARE 64782 SUPPORT SUPPORT /HOME 0 SOURCE SOURCE MGMT TRAINING EACH 15 MINUTES SELF-CARE 11827 SUPPORT SUPPORT /HOME 0 SOURCE SOURCE MGMT TRAINING EACH 15 MINUTES SELF-CARE 77698 SUPPORT SUPPORT /HOME 0 SOURCE SOURCE MGMT TRAINING EACH 15 MINUTES SELF-CARE 13635 SUPPORT SUPPORT /HOME 0 SOURCE SOURCE MGMT TRAINING EACH 15 MINUTES SELF-CARE 70027 SUPPORT SUPPORT /HOME 0 SOURCE SOURCE MGMT TRAINING EACH 15 MINUTES SELF-CARE 34042 SUPPORT SUPPORT /HOME 0 SOURCE SOURCE MGMT TRAINING EACH 15 MINUTES SELF-CARE 00820 SUPPORT SUPPORT /HOME 0 SOURCE SOURCE MGMT TRAINING EACH 15 MINUTES SELF-CARE 48023 SUPPORT SUPPORT /HOME 0 SOURCE SOURCE MGMT TRAINING EACH 15 MINUTES SELF-CARE 23282 SUPPORT SUPPORT /HOME 0 SOURCE SOURCE MGMT TRAINING EACH 15 MINUTES SELF-CARE 18150 SUPPORT SUPPORT /HOME 0 SOURCE SOURCE MGMT TRAINING EACH 15 MINUTES SELF-CARE 03408 SUPPORT SUPPORT /HOME 0 SOURCE SOURCE MGMT TRAINING EACH 15 MINUTES SELF-CARE 67206 SUPPORT SUPPORT /HOME 0 SOURCE SOURCE MGMT TRAINING EACH 15 MINUTES SELF-CARE 12077 SUPPORT SUPPORT /HOME 0 SOURCE SOURCE MGMT TRAINING EACH 15 MINUTES SELF-CARE 79087 SUPPORT SUPPORT /HOME 0 SOURCE SOURCE MGMT TRAINING EACH 15 MINUTES AMBULANCE [id number] [facility] SERVICE 0 AMBULANCE AMBULANCE BLS SERVICE SERVICE EMERGENCY TRANSPORT GROUND A0425 [facility] PER SERVICE SERVICE STATUTE MILE DRUG 88742 [facility] SCREEN 0 [facility] QUANTITAT INC INC BROOKLYNN PHENYTOIN TOTAL SELF-CARE 69508 SUPPORT SUPPORT /HOME 0 SOURCE SOURCE MGMT TRAINING EACH 15 MINUTES SELF-CARE 02159 SUPPORT SUPPORT /HOME 0 SOURCE SOURCE MGMT TRAINING EACH 15 MINUTES SELF-CARE 57536 SUPPORT SUPPORT /HOME 0 SOURCE SOURCE MGMT TRAINING EACH 15 MINUTES SELF-CARE 11148 SUPPORT SUPPORT /HOME 0 SOURCE SOURCE MGMT TRAINING EACH 15 MINUTES SELF-CARE 60316 SUPPORT SUPPORT /HOME 0 SOURCE SOURCE MGMT TRAINING EACH 15 MINUTES SELF-CARE 80334 SUPPORT SUPPORT /HOME 0 SOURCE SOURCE MGMT TRAINING EACH 15 MINUTES SELF-CARE 69538 SUPPORT SUPPORT /HOME 0 SOURCE SOURCE MGMT TRAINING EACH 15 MINUTES SELF-CARE 17874 SUPPORT SUPPORT /HOME 0 SOURCE SOURCE MGMT TRAINING EACH 15 MINUTES SELF-CARE 69940 SUPPORT SUPPORT /HOME 0 SOURCE SOURCE MGMT TRAINING EACH 15 MINUTES SELF-CARE 30873 SUPPORT SUPPORT /HOME 0 SOURCE SOURCE MGMT TRAINING EACH 15 MINUTES SELF-CARE 13545 SUPPORT SUPPORT /HOME 0 SOURCE SOURCE MGMT TRAINING EACH 15 MINUTES SELF-CARE 03341 SUPPORT SUPPORT /HOME 0 SOURCE SOURCE MGMT TRAINING EACH 15 MINUTES SELF-CARE 24794 SUPPORT SUPPORT /HOME 0 SOURCE SOURCE MGMT TRAINING EACH 15 MINUTES SELF-CARE 94213 SUPPORT SUPPORT /HOME 0 SOURCE SOURCE MGMT TRAINING EACH 15 MINUTES SELF-CARE 77553 SUPPORT SUPPORT /HOME 0 SOURCE SOURCE MGMT TRAINING EACH 15 MINUTES SELF-CARE 15473 SUPPORT SUPPORT /HOME 0 SOURCE SOURCE MGMT TRAINING EACH 15 MINUTES SELF-CARE 22115 SUPPORT SUPPORT /HOME 0 SOURCE SOURCE MGMT TRAINING EACH 15 MINUTES SELF-CARE 97208 SUPPORT SUPPORT /HOME 0 SOURCE SOURCE MGMT TRAINING EACH 15 MINUTES SELF-CARE 20775 SUPPORT SUPPORT /HOME 0 SOURCE SOURCE MGMT TRAINING EACH 15 MINUTES SELF-CARE 80615 SUPPORT SUPPORT /HOME 0 SOURCE SOURCE MGMT TRAINING EACH 15 MINUTES SELF-CARE 71661 SUPPORT SUPPORT /HOME 0 SOURCE SOURCE MGMT TRAINING EACH 15 MINUTES SELF-CARE 43242 SUPPORT SUPPORT /HOME 0 SOURCE SOURCE MGMT TRAINING EACH 15 MINUTES SELF-CARE 47831 SUPPORT SUPPORT /HOME 0 SOURCE SOURCE MGMT TRAINING EACH 15 MINUTES SELF-CARE 28899 SUPPORT SUPPORT /HOME 0 SOURCE SOURCE MGMT TRAINING EACH 15 MINUTES SELF-CARE 90657 SUPPORT SUPPORT /HOME 0 SOURCE SOURCE MGMT TRAINING EACH 15 MINUTES SELF-CARE 81918 SUPPORT SUPPORT /HOME 0 SOURCE SOURCE MGMT TRAINING EACH 15 MINUTES SELF-CARE 14456 SUPPORT SUPPORT /HOME 0 SOURCE SOURCE MGMT TRAINING EACH 15 MINUTES SELF-CARE 58721 SUPPORT SUPPORT /HOME 0 SOURCE SOURCE MGMT TRAINING EACH 15 MINUTES SELF-CARE 89175 SUPPORT SUPPORT /HOME 0 SOURCE SOURCE MGMT TRAINING EACH 15 MINUTES SELF-CARE 13963 SUPPORT SUPPORT /HOME 0 SOURCE SOURCE MGMT TRAINING EACH 15 MINUTES SELF-CARE 59115 SUPPORT SUPPORT /HOME 0 SOURCE SOURCE MGMT TRAINING EACH 15 MINUTES SELF-CARE 47601 SUPPORT SUPPORT /HOME 0 SOURCE SOURCE MGMT TRAINING EACH 15 MINUTES SELF-CARE 29087 SUPPORT SUPPORT /HOME 0 SOURCE SOURCE MGMT TRAINING EACH 15 MINUTES SELF-CARE 45771 SUPPORT SUPPORT /HOME 0 SOURCE SOURCE MGMT TRAINING EACH 15 MINUTES SELF-CARE 47323 SUPPORT SUPPORT /HOME 0 SOURCE SOURCE MGMT TRAINING EACH 15 MINUTES SELF-CARE 76056 SUPPORT SUPPORT /HOME 0 SOURCE SOURCE MGMT TRAINING EACH 15 MINUTES SELF-CARE 69078 SUPPORT SUPPORT /HOME 0 SOURCE SOURCE MGMT TRAINING EACH 15 MINUTES SELF-CARE 87395 SUPPORT SUPPORT /HOME 0 SOURCE SOURCE MGMT TRAINING EACH 15 MINUTES SELF-CARE 86660 SUPPORT SUPPORT /HOME 0 SOURCE SOURCE MGMT TRAINING EACH 15 MINUTES DRUG 27816 [facility] S[facility]EN [facility] QUANTITAT INC INC BROOKLYNN PHENYTOIN TOTAL BLOOD 21573 CAYETANO [facility]IRO COUNT 0 [facility] COMPLETE INC INC AUTO&[place] [address] CAYETANO [facility]TEIR[facility] THYROID 0 [facility] STIMULATI INC INC NG HORMONE TSH COMPREHEN 95272 CAYETANO MONTEIRO SIVE 0 [facility] METABOLIC INC INC PANEL SELF-CARE 69784 SUPPORT SUPPORT /HOME 0 SOURCE SOURCE MGMT TRAINING EACH 15 MINUTES SELF-CARE 84437 SUPPORT SUPPORT /HOME 0 SOURCE SOURCE MGMT TRAINING EACH 15 MINUTES SELF-CARE 56701 SUPPORT SUPPORT /HOME 0 SOURCE SOURCE MGMT TRAINING EACH 15 MINUTES DEBRIDEME 64641 KARRIE YOON, NT 0 KRISTI G KRISTI G MASTOIDEC JUANCHO CAVITY SIMPLE SELF-CARE 09346 SUPPORT SUPPORT /HOME 0 SOURCE SOURCE MGMT TRAINING EACH 15 MINUTES SELF-CARE 64209 SUPPORT SUPPORT /HOME 0 SOURCE SOURCE MGMT TRAINING EACH 15 MINUTES SELF-CARE 18326 SUPPORT SUPPORT /HOME 0 SOURCE SOURCE MGMT TRAINING EACH 15 MINUTES SELF-CARE 56723 SUPPORT SUPPORT /HOME 0 SOURCE SOURCE MGMT TRAINING EACH 15 MINUTES SELF-CARE 39674 SUPPORT SUPPORT /HOME 0 SOURCE SOURCE MGMT TRAINING EACH 15 MINUTES SELF-CARE 95568 SUPPORT SUPPORT /HOME 0 SOURCE SOURCE MGMT TRAINING EACH 15 MINUTES SELF-CARE 75262 SUPPORT SUPPORT /HOME 0 SOURCE SOURCE MGMT TRAINING EACH 15 MINUTES SELF-CARE 22642 SUPPORT SUPPORT /HOME 0 SOURCE SOURCE MGMT TRAINING EACH 15 MINUTES SELF-CARE 83441 SUPPORT SUPPORT /HOME 0 SOURCE SOURCE MGMT TRAINING EACH 15 MINUTES SELF-CARE 12226 SUPPORT SUPPORT /HOME 0 SOURCE SOURCE MGMT TRAINING EACH 15 MINUTES SELF-CARE 90334 SUPPORT SUPPORT /HOME 0 SOURCE SOURCE MGMT TRAINING EACH 15 MINUTES SELF-CARE 84992 SUPPORT SUPPORT /HOME 0 SOURCE SOURCE MGMT TRAINING EACH 15 MINUTES SELF-CARE 01442 SUPPORT SUPPORT /HOME 0 SOURCE SOURCE MGMT TRAINING EACH 15 MINUTES SELF-CARE 63598 SUPPORT SUPPORT /HOME 0 SOURCE SOURCE MGMT TRAINING EACH 15 MINUTES SELF-CARE 48624 SUPPORT SUPPORT /HOME 0 SOURCE SOURCE MGMT TRAINING EACH 15 MINUTES SELF-CARE 95831 SUPPORT SUPPORT /HOME 0 SOURCE SOURCE MGMT TRAINING EACH 15 MINUTES SELF-CARE 57846 SUPPORT SUPPORT /HOME 0 SOURCE SOURCE MGMT TRAINING EACH 15 MINUTES SELF-CARE 96358 SUPPORT SUPPORT /HOME 0 SOURCE SOURCE MGMT TRAINING EACH 15 MINUTES SELF-CARE 50062 SUPPORT SUPPORT /HOME 0 SOURCE SOURCE MGMT TRAINING EACH 15 MINUTES SELF-CARE 47182 SUPPORT SUPPORT /HOME 0 SOURCE SOURCE MGMT TRAINING EACH 15 MINUTES SELF-CARE 51728 SUPPORT SUPPORT /HOME 0 SOURCE SOURCE MGMT TRAINING EACH 15 MINUTES [facility] [address] GERMAIN HOWARD, MEDICAL 0 VISION MARIETTA A XM&EVAL COMPRHNSV ESTAB PT 1/> SELF-CARE 05512 SUPPORT SUPPORT /HOME 0 SOURCE SOURCE MGMT TRAINING EACH 15 MINUTES SELF-CARE 66670 SUPPORT SUPPORT /HOME 0 SOURCE SOURCE MGMT TRAINING EACH 15 MINUTES SELF-CARE 34957 SUPPORT SUPPORT /HOME 0 SOURCE SOURCE MGMT TRAINING EACH 15 MINUTES SELF-CARE 78617 SUPPORT SUPPORT /HOME 0 SOURCE SOURCE MGMT TRAINING EACH 15 MINUTES SELF-CARE 73124 SUPPORT SUPPORT /HOME 0 SOURCE SOURCE MGMT TRAINING EACH 15 MINUTES SELF-CARE 97672 SUPPORT SUPPORT /HOME 0 SOURCE SOURCE MGMT TRAINING EACH 15 MINUTES SELF-CARE 97517 SUPPORT SUPPORT /HOME 0 SOURCE SOURCE MGMT TRAINING EACH 15 MINUTES SELF-CARE 24709 SUPPORT SUPPORT /HOME 0 SOURCE SOURCE MGMT TRAINING EACH 15 MINUTES SELF-CARE 32499 SUPPORT SUPPORT /HOME 0 SOURCE SOURCE MGMT TRAINING EACH 15 MINUTES SELF-CARE 78948 SUPPORT SUPPORT /HOME 0 SOURCE SOURCE MGMT TRAINING EACH 15 MINUTES SELF-CARE 94116 SUPPORT SUPPORT /HOME 0 SOURCE SOURCE MGMT TRAINING EACH 15 MINUTES SELF-CARE 48862 SUPPORT SUPPORT /HOME 0 SOURCE SOURCE MGMT TRAINING EACH 15 MINUTES COMPRE 72488 KARRIE YOON, AUDIOMETR 0 KRISTI Akhtar Y THRESHOLD EVAL SP RECOGNIJ TYMPANOME 11109 KARRIE YOON, TRY 0 KRISTI G KRISTI Akhtar SELF-CARE 65579 SUPPORT SUPPORT /HOME 0 SOURCE SOURCE MGMT TRAINING EACH 15 MINUTES SELF-CARE 32623 SUPPORT SUPPORT /HOME 0 SOURCE SOURCE MGMT TRAINING EACH 15 MINUTES SELF-CARE 08931 SUPPORT SUPPORT /HOME 0 SOURCE SOURCE MGMT TRAINING EACH 15 MINUTES SELF-CARE 46690 SUPPORT SUPPORT /HOME 0 SOURCE SOURCE MGMT TRAINING EACH 15 MINUTES SELF-CARE 26743 SUPPORT SUPPORT /HOME 0 SOURCE SOURCE MGMT TRAINING EACH 15 MINUTES SELF-CARE 91305 SUPPORT SUPPORT /HOME 0 SOURCE SOURCE MGMT TRAINING EACH 15 MINUTES SELF-CARE 55153 SUPPORT SUPPORT /HOME 0 SOURCE SOURCE MGMT TRAINING EACH 15 [place] [address] CAYETANO MONTEIRO TH[facility]ROID 0 [facility] STIMULATI INC INC NG HORMONE TSH BLOOD 16257 CAYETANO MONTEIRO COUNT [facility] COMPLETE INC INC AUTO&[place] [address] CAYETANO MONTEIRO FREE 0 [facility] THYROXINE INC INC SELF-CARE 22425 SUPPORT SUPPORT /HOME 0 SOURCE SOURCE MGMT TRAINING EACH 15 MINUTES SELF-CARE 31502 SUPPORT SUPPORT /HOME 0 SOURCE SOURCE MGMT TRAINING EACH 15 MINUTES SELF-CARE 79084 SUPPORT SUPPORT /HOME 0 SOURCE SOURCE MGMT TRAINING EACH 15 MINUTES SELF-CARE 98938 SUPPORT SUPPORT /HOME 0 SOURCE SOURCE MGMT TRAINING EACH 15 MINUTES SELF-CARE 53251 SUPPORT SUPPORT /HOME 0 SOURCE SOURCE MGMT TRAINING EACH 15 MINUTES SELF-CARE 93134 SUPPORT SUPPORT /HOME 0 SOURCE SOURCE MGMT TRAINING EACH 15 MINUTES SELF-CARE 75626 SUPPORT SUPPORT /HOME 0 SOURCE SOURCE MGMT TRAINING EACH 15 MINUTES SELF-CARE 20009 SUPPORT SUPPORT /HOME 0 SOURCE SOURCE MGMT TRAINING EACH 15 MINUTES SELF-CARE 22907 SUPPORT SUPPORT /HOME 0 SOURCE SOURCE MGMT TRAINING EACH 15 MINUTES 3D 54270 [facility], RENDERING 0 MEDICAL STEPHANI IMAGING W/INTERP& ASSOCIATE POSTPROC S DIFF WORK STATION CT ORBIT 46771 [facility], SELLA/POS 0 MEDICAL STEPHANI T IMAGING FOSSA/EAR ASSOCIATE W/[place] [address] [facility], MAXILLOFA 0 MEDICAL STEPHANI CIAL W/O IMAGING CONTRAST ASSOCIATE MATERIAL S SELF-CARE 84892 SUPPORT SUPPORT /HOME 0 SOURCE SOURCE MGMT TRAINING EACH 15 MINUTES SELF-CARE 08463 SUPPORT SUPPORT /HOME 0 SOURCE SOURCE MGMT TRAINING EACH 15 MINUTES SELF-CARE 01947 SUPPORT SUPPORT /HOME 0 SOURCE SOURCE MGMT TRAINING EACH 15 MINUTES SELF-CARE 07759 SUPPORT SUPPORT /HOME 0 SOURCE SOURCE MGMT TRAINING EACH 15 MINUTES SELF-CARE 99506 SUPPORT SUPPORT /HOME 0 SOURCE SOURCE MGMT TRAINING EACH 15 MINUTES SELF-CARE 43400 SUPPORT SUPPORT /HOME 0 SOURCE SOURCE MGMT TRAINING EACH 15 MINUTES SELF-CARE 51244 SUPPORT SUPPORT /HOME 0 SOURCE SOURCE MGMT TRAINING EACH 15 MINUTES SELF-CARE 80538 SUPPORT SUPPORT /HOME 0 SOURCE SOURCE MGMT TRAINING EACH 15 MINUTES SELF-CARE 94830 SUPPORT SUPPORT /HOME 0 SOURCE SOURCE MGMT TRAINING EACH 15 MINUTES SELF-CARE 21417 SUPPORT SUPPORT /HOME 0 SOURCE SOURCE MGMT TRAINING EACH 15 MINUTES SELF-CARE 46521 SUPPORT SUPPORT /HOME 0 SOURCE SOURCE MGMT TRAINING EACH 15 MINUTES SELF-CARE 29346 SUPPORT SUPPORT /HOME 0 SOURCE SOURCE MGMT TRAINING EACH 15 MINUTES SELF-CARE 46549 SUPPORT SUPPORT /HOME 0 SOURCE SOURCE MGMT TRAINING EACH 15 MINUTES SELF-CARE 34957 SUPPORT SUPPORT /HOME 0 SOURCE SOURCE MGMT TRAINING EACH 15 MINUTES SCREENING 23907 [facility], 0 MEDICAL STEPHANI MAMMOGRAP IMAGING HY ASSOCIATE BILATERAL S COMPUTER- 89209 [facility], AIDED 0 MEDICAL STEPHANI DETECTION IMAGING ASSOCIATE SCREENING S MAMMOGRAP HY BLOOD 89132 HANKS, HANKS, OCCULT 0 DON R DON R PEROXIDAS E ACTV QUAL FECES 1 DETER CYTP 04300 [facility] CERV/VAG MNL SCRN PHYSICIAN SUPV SELF-CARE 91399 SUPPORT SUPPORT /HOME 0 SOURCE SOURCE MGMT TRAINING EACH 15 MINUTES SELF-CARE 18338 SUPPORT SUPPORT /HOME 0 SOURCE SOURCE MGMT TRAINING EACH 15 MINUTES SELF-CARE 72350 SUPPORT SUPPORT /HOME 0 SOURCE SOURCE MGMT TRAINING EACH 15 MINUTES SELF-CARE 77180 SUPPORT SUPPORT /HOME 0 SOURCE SOURCE MGMT TRAINING EACH 15 MINUTES SELF-CARE 01123 SUPPORT SUPPORT /HOME 0 SOURCE SOURCE MGMT TRAINING EACH 15 MINUTES SELF-CARE 78501 SUPPORT SUPPORT /HOME 0 SOURCE SOURCE MGMT TRAINING EACH 15 MINUTES SELF-CARE 72361 SUPPORT SUPPORT /HOME 0 SOURCE SOURCE MGMT TRAINING EACH 15 MINUTES SELF-CARE 28497 SUPPORT SUPPORT /HOME 0 SOURCE SOURCE MGMT TRAINING EACH 15 MINUTES SELF-CARE 51063 SUPPORT SUPPORT /HOME 0 SOURCE SOURCE MGMT TRAINING EACH 15 MINUTES SELF-CARE 62426 SUPPORT SUPPORT /HOME 0 SOURCE SOURCE MGMT TRAINING EACH 15 MINUTES SELF-CARE 15127 SUPPORT SUPPORT /HOME 0 SOURCE SOURCE MGMT TRAINING EACH 15 MINUTES SELF-CARE 28173 SUPPORT SUPPORT /HOME 0 SOURCE SOURCE MGMT TRAINING EACH 15 MINUTES SELF-CARE 00856 SUPPORT SUPPORT /HOME 0 SOURCE SOURCE MGMT TRAINING EACH 15 MINUTES SELF-CARE 46286 SUPPORT SUPPORT /HOME 0 SOURCE SOURCE MGMT TRAINING EACH 15 MINUTES SELF-CARE 32343 SUPPORT SUPPORT /HOME 0 SOURCE SOURCE MGMT TRAINING EACH 15 MINUTES SELF-CARE 88950 SUPPORT SUPPORT /HOME 0 SOURCE SOURCE MGMT TRAINING EACH 15 MINUTES SELF-CARE 79997 SUPPORT SUPPORT /HOME 0 SOURCE SOURCE MGMT TRAINING EACH 15 MINUTES SELF-CARE 26668 SUPPORT SUPPORT /HOME 0 SOURCE SOURCE MGMT TRAINING EACH 15 MINUTES CONTINUOU E0601 DEBORAH CABRERA S 0 HOME MED HOME MED POSITIVE EQUIP. EQUIP. [facility] PRESSURE DEVICE SELF-CARE 02343 SUPPORT SUPPORT /HOME 0 SOURCE SOURCE MGMT TRAINING EACH 15 MINUTES SELF-CARE 70816 SUPPORT SUPPORT /HOME 0 SOURCE SOURCE MGMT TRAINING EACH 15 [place] [address] CAYETANO MONTEIRO [facility]ROID 0 [facility] STIMULATI INC INC NG HORMONE TSH DRUG 84476 CAYETANO [facility]TE[facility] SCREEN [facility] QUANTITAT INC INC BROOKLYNN PHENYTOIN TOTAL DRUG 34695 CAYETANO AVERYON SCREEN 0 [facility] QUANTITAT INC INC BROOKLYNN PHENYTOIN TOTAL URNLS DIP 27305 CAYETANO MONTEIRO 0 [facility] STICK/TAB INC INC LET REAGENT AUTO MICROSCOP Y BLOOD 55021 CAYETANO MONTEIRO COUNT 0 [facility] COMPLETE INC INC AUTO&AUTO DIFRNTL WBC BASIC 99507 CAYETANO MONTEIRO METABOLIC 0 [facility] PANEL INC INC CALCIUM TOTAL SUSCEPTIB 23838 CAYETANO MONTEIRO LTY STDY 0 [facility] ANTIMICRB INC INC IAL MICRO/AGA R DILUTJ AMB A0422 EMELIA [facility] OXYGEN&O2 0 AMBULANCE AMBULANCE SUPPLIES SERVICE SERVICE LIFE SUSTAININ G SITUATION GROUND A0425 EMELIA [facility] MILEAGE 0 AMBULANCE AMBULANCE PER SERVICE SERVICE STATUTE MILE CULTURE 47751 CAYET[facility]O [facility]TE[facility]O BACTERIAL 0 [facility] INC INC QUANTTATI VE COLONY COUNT URINE CULTURE 63393 CAYETANO MONTEIRO BCT 0 [facility] ISOL&PRSM INC INC PTV ID ISOLATE EA URINE AMB [id number] EMELIA [facility] SERVICE 0 AMBULANCE AMBULANCE ALS SERVICE SERVICE EMERGENCY TRANSPORT LEVEL 1 MANUAL 83855 CAYETANO MONTEIRO THERAPY 0 [facility] TQS 1/> INC INC REGIONS EACH 15 MINUTES THERAPEUT 47278 CAYETANO MONTEIRO IC PX 1/> 0 [facility] AREAS INC INC EACH 15 MIN EXERCISES THERAPEUT 79595 CAYETANO MONTEIRO IC PX 1/> 0 [facility] AREAS INC INC EACH 15 MIN EXERCISES APPLICATI 64797 CAYETANO MONTEIRO ON 0 [facility] MODALITY INC INC 1/> AREAS HOT/COLD PACKS MANUAL 36080 CAYETANO MONTEIRO THERAPY 0 [facility] TQS 1/> INC INC REGIONS EACH 15 MINUTES APPLICATI 38041 CAYETANO MONTEIRO ON 0 [facility] MODALITY INC INC 1/> AREAS HOT/COLD PACKS MANUAL 56804 CAYETANO MONTEIRO THERAPY 0 [facility] TQS 1/> INC INC REGIONS EACH 15 MINUTES THERAPEUT 95246 CAYETANO MONTEIRO IC PX 1/> 0 [facility] AREAS INC INC EACH 15 MIN EXERCISES THERAPEUT 60817 CAYETANO MONTEIRO IC PX 1/> 0 [facility] AREAS INC INC EACH 15 MIN EXERCISES APPLICATI 80457 CAYETANO MONTEIRO ON 0 [facility] MODALITY INC INC 1/> AREAS HOT/COLD PACKS MANUAL 62581 CAYETANO MONTEIRO THERAPY 0 [facility] TQS 1/> INC INC REGIONS EACH 15 MINUTES MANUAL 80061 CAYETANO MONTEIRO THERAPY 0 [facility] TQS 1/> INC INC REGIONS EACH 15 MINUTES APPLICATI 62818 CAYETANO MONTEIRO ON 0 [facility] MODALITY INC INC 1/> AREAS HOT/COLD PACKS THERAPEUT 25324 CAYETANO MONTEIRO IC PX 1/> 0 [facility] AREAS INC INC EACH 15 MIN EXERCISES NASL A7034 DEBORAH CABRERA INTRFCE 0 HOME MED HOME MED POS ARWAY EQUIP. EQUIP. PRSS [facility] DEVC W/WO HEAD STRAP HEADGEAR A7035 DEBORAH CABRERA USED 0 HOME MED HOME MED W/POSITIV EQUIP. EQUIP. E [facility] PRESSURE DEVICE CONTINUOU E0601 DEBORAH CHEUNGRELL S 0 HOME MED HOME MED POSITIVE EQUIP. EQUIP. [facility] PRESSURE DEVICE FILTER A7038 DEBORAH CHEUNGRELL DISPBL 0 HOME MED HOME MED USED EQUIP. EQUIP. W/POS [facility]WAY PRESSURE DEVICE FILTER A7039 DEBORAH CHEUNGRELL NON 0 HOME MED HOME MED DISPBL EQUIP. EQUIP. USED [facility] W/POS [facility] PRESS DEVICE TUBING A7037 DEBORAH CHEUNGRELL USED WITH 0 HOME MED HOME MED POSITIVE EQUIP. EQUIP. [facility] PRESSURE DEVICE THERAPEUT 50581 CAYETANO MONTEIRO IC PX 1/> 0 [facility] AREAS INC INC EACH 15 MIN EXERCISES APPLICATI 97997 CAYETANO MONTEIRO ON 0 [facility] MODALITY INC INC 1/> AREAS HOT/COLD PACKS MANUAL 85628 CAYETANO CAYETANO THERAPY 0 [facility] TQS 1/> INC INC REGIONS EACH 15 MINUTES MANUAL 94827 CAYETANO MONTEIRO THERAPY 0 [facility] TQS 1/> INC INC REGIONS EACH 15 MINUTES RADEX 52648 CARLOS CEJA, WRIST 2 0 [facility] IMAGING ASSOCIATE S APPLICATI 33373 CAYETANO CAYETANO ON 0 [facility] MODALITY INC INC 1/> AREAS HOT/COLD PACKS THERAPEUT 61264 CAYETANO CAYETANO IC PX 1/> 0 [facility] AREAS INC INC EACH 15 MIN EXERCISES MEDICAL 70490 CAYETANO MONTEIRO NUTRITION 0 [facility] ASSMT&IVN TJ INDIV EACH 15 LA APPL 85020 CAYETANO MONTEIRO MODALITY 0 [facility] 1/> AREAS INC INC ELEC STIMJ UNATTENDE D THERAPEUT 02891 CAYETANO MONTEIRO IC PX 1/> 0 [facility] AREAS INC INC EACH 15 MIN EXERCISES APPLICATI 71949 CAYETANO MONTEIRO ON 0 [facility] MODALITY INC INC 1/> AREAS HOT/COLD PACKS MANUAL 19521 CAYETANO MONTEIRO THERAPY 0 [facility] TQS 1/> INC INC REGIONS EACH 15 MINUTES MANUAL 37850 CAYETANO MONTEIRO THERAPY 0 [facility] TQS 1/> INC INC REGIONS EACH 15 MINUTES PHYSICAL 61872 CAYETANO MONTEIRO THERAPY 0 [facility] RE-EVALUA INC INC TION APPLICATI 69237 CAYETANO MONTEIRO ON 0 [facility] MODALITY INC INC 1/> AREAS HOT/COLD PACKS THERAPEUT 66290 CAYETANO MONTEIRO IC PX 1/> 0 [facility] AREAS INC INC EACH 15 MIN EXERCISES APPL 16669 CAYETANO MONTEIRO MODALITY 0 [facility] 1/> AREAS INC INC PARAFFIN BATH APPL 78820 CAYETANO MONTEIRO MODALITY 0 [facility] 1/> AREAS INC INC PARAFFIN BATH THERAPEUT 60050 CAYETANO MONTEIRO IC PX 1/> 0 [facility] AREAS INC INC EACH 15 MIN EXERCISES MANUAL 10589 CAYETANO MONTEIRO THERAPY 0 [facility] TQS 1/> INC INC REGIONS EACH 15 MINUTES MANUAL 84452 CAYETANO MONTEIRO THERAPY 9 [facility] TQS 1/> INC INC REGIONS EACH 15 MINUTES APPLICATI 10851 CAYETANO MONTEIRO ON 9 [facility] MODALITY INC INC 1/> AREAS HOT/COLD PACKS APPL 49221 CAYETANO MONTEIRO MODALITY 9 [facility] 1/> AREAS INC INC ELEC STIMJ UNATTENDE D APPL 24150 CAYETANO MONTEIRO MODALITY 9 [facility] 1/> AREAS INC INC PARAFFIN BATH THERAPEUT 62496 CAYETANO MONTEIRO IC PX 1/> 9 [facility] AREAS INC INC EACH 15 MIN EXERCISES THERAPEUT 94325 CAYETANO MONTEIRO IC PX 1/> 9 [facility] AREAS INC INC EACH 15 MIN EXERCISES APPL 42562 CAYETANO MONTEIRO MODALITY 9 [facility] 1/> AREAS INC INC ELEC STIMJ UNATTENDE D APPLICATI 11222 CAYETANO AVERYON ON 9 [facility] MODALITY INC INC 1/> AREAS HOT/COLD PACKS MANUAL 19165 CAYETANOANALILIA MONTEIRO THERAPY 9 [facility] TQS 1/> INC INC REGIONS EACH 15 MINUTES POLYSOM 92088 CAYETANO MONTEIRO 6/>YRS 9 [facility] SLEEP 4/> INC INC ADDL SHAUN ATTND THERAPEUT 08988 CAYETANO MONTEIRO IC PX 1/> 9 [facility] AREAS INC INC EACH 15 MIN EXERCISES MANUAL 82697 CAYETANOANALILIA MONTEIRO THERAPY 9 [facility] TQS 1/> INC INC REGIONS EACH 15 MINUTES APPLICATI 03979 CAYETANO MONTEIRO ON 9 [facility] MODALITY INC INC 1/> AREAS HOT/COLD PACKS APPL 31777 CAYETANO MONTEIRO MODALITY 9 [facility] 1/> AREAS INC INC ELEC STIMJ UNATTENDE D APPL 84549 CAYETANO MONTEIRO MODALITY 9 [facility] 1/> AREAS INC INC ELEC STIMJ UNATTENDE D APPL 52638 CAYETANOANALILIA MONTEIRO MODALITY 9 [facility] 1/> AREAS INC INC VASOPNEUM ATIC DEVICES PHYSICAL 89373 CAYETANO MONTEIRO THERAPY 9 [facility] EVALUATIO INC INC N THERAPEUT 62385 CAYETANO MONTEIRO IC PX 1/> 9 [facility] AREAS INC INC EACH 15 MIN EXERCISES DEBRIDEME 74719 KARRIE YOON, NT 9 KRISTI Akhtar MASTOIDEC JUANCHO CAVITY SIMPLE BINOCULAR 45122 KARRIE YOON, 9 KRISTI G KRISTI G MICROSCOP Y SEPARATE DX PROCEDURE WRIST L3908 TRACY TRACY HAND 9 YOAV CASON MD ORTHOSIS PSC PSC EXT CONTROL COCK-UP PREFAB RADEX 35261 CAYETANO MONTEIRO WRIST 2 9 [facility] VIEWS INC INC COMPREHEN 23927 COMBINED COMBINED SIVE 9 PHYSICIAN PHYSICIAN METABOLIC S LAB S LAB PANEL BLOOD 92441 COMBINED COMBINED COUNT 9 PHYSICIAN PHYSICIAN COMPLETE S LAB S LAB AUTO&AUTO DIFRNTL WBC LIPID 07542 COMBINED COMBINED PANEL 9 PHYSICIAN PHYSICIAN S LAB S LAB DRUG 67166 COMBINED COMBINED SCREEN 9 PHYSICIAN PHYSICIAN QUANTITAT S LAB S LAB BROOKLYNN PHENYTOIN TOTAL LIPID 69366 COMBINED COMBINED PANEL 9 PHYSIC[place] [address] COMBINED COMBINED THYROID 9 PHYSICIAN PHYSICIAN STIMULATI S LAB S LAB NG HORMONE TSH RADEX 80195 CAYETANO MONTEIRO WRIST 2 9 [facility] VIEWS INC INC RADEX 20631 HANKS, AHNKS, ANKLE 9 DON R DON R COMPLETE MINIMUM 3 VIEWS RADEX 66567 UTA[facility] BRENNA, WRIST 2 9 MEDICAL ZHAO P VIEWS IMAGING ASSOCIATE S APPLICATI 23061 BOWEN WISEMAN, ON CAST 9 TRACY TRACY ELBOW FINGER SHORT ARM RADEX 80355 UTAH BRENNA, WRIST 2 9 MEDICAL ZHAO P VIEWS IMAGING ASSOCIATE S RADEX 10852 CAYETANO MONTEIRO WRIST 2 9 [facility] VIEWS INC INC ANES 95206 COMMUNITY VITLA, RADIUS 9 ANESTH MELLISA L ULNA OF THE WRIST/[place] [address] CAYETANO MONTEIRO INFUSION 9 [facility] THERAPY INC INC PROPHYLAX IS/DX EA HOUR BLOOD 34643 CAYETANO MONTEIRO COUNT 9 [facility] COMPLETE INC INC AUTO&[place] [address] CAYETANO ACYETANO INFUSION 9 [facility] THERAPY/P INC INC ROPHYLAXI S /DX 1ST TO 1 HR CLTX DSTL 49387 BOWEN WISEMAN, RDL 9 TRACY TRACY FX/EPIPHY SL SEP W/MANJ WHEN PERF CLOS RDUC 7902 CAYETANO [facility] FRACTURE 9 [facility] INC INC RADIUS&UL NA WITHOUT INTRL FIX RADEX 18079 [facility] HAND 9 MEDICAL STEPHANI MINIMUM 3 IMAGING VIEWS ASSOCIATE S DRUG 17721 COMBINED COMBINED SCREEN 9 PHYSICIAN PHYSICIAN QUANTITAT S LAB S LAB [place] [address] COMBINED COMBINED THYROID 9 PHYSICIAN PHYSICIAN STIMULATI [place] [address] CA[facility]ETANO [facility] THYROID 9 [facility] STIMULATI INC INC NG HORMONE TSH COMPREHEN 61447 CA[facility]ETANO [facility] SIVE 9 [facility] METABOLIC INC INC PANEL ECG 97826 CA[facility]ETANO [facility] ROUTINE 9 [facility] ECG INC INC W/LEAST 12 LDS TRCG ONLY W/O I&R DRUG 83553 CAYETANO CAYETANO SCREEN 9 [facility] QUANTITAT INC INC BROOKLYNN PHENYTOIN TOTAL BLOOD 69767 CAYETANO [facility] COUNT 9 [facility] COMPLETE INC INC AUTO&AUTO DIFRNTL WBC 3D 35448 CARLOS BRENNA, RENDERING 9 MEDICAL ZHAO P W/INTERP IMAGING & ASSOCIATE POSTPROCE S SS SUPERVISI ON RHYTHM 05488 CAYETANO CAYETANO ECG 1-3 9 [facility] HOSP LEADS INC INC TRACING ONLY W/O I&R ECG 23101 CAYETANO MALAVEMILeticia ROUTINE 9 [facility] W/LEAST PROF SERV 12 LDS I&[place] [address] CAYETANO [facility] HEAD/BRAI 9 [facility] N W/O INC INC CONTRAST MATERIAL GROUND A0425 [facility] AM[facility] PER SERVICE SERVICE STATUTE MILE AMBULANCE A0429 [facility] SERVICE 9 AMBULANCE AMBULANCE BLS SERVICE SERVICE EMERGENCY TRANSPORT OPHTH 23000 [facility]ER[facility] MAGANA [facility]ICAL 9 VISION SG M XM&EVAL COMPRHNSV ESTAB PT 1/> [place] [address] COMBINED COMBINED THYROID 9 PHYSICIAN PHYSICIAN STIMULATI S LAB S LAB NG HORMONE TSH GLUCOSE 27180 COMBINED COMBINED TOLERANCE 9 PHYSICIAN PHYSICIAN TEST GTT S LAB S LAB 3 SPECIMENS DRUG 55164 COMBINED COMBINED SCREEN 9 PHYSICIAN PHYSICIAN QUANTITAT S LAB S LAB BROOK[place]NN PHENYTOIN TOTAL LIPID 46478 COMBINED COMBINED PANEL 9 PHYSICIAN PHYSICIAN S LAB S LAB DRUG 56362 COMBINED COMBINED SCREEN 9 PHYSICIAN PHYSICIAN QUANTITAT S LAB S [place] [address] COMBINED COMBINED THYROID 9 PHYSICIAN PHYSICIAN STIMULATI S [place] [address] COMBINED COMBINED THYROID 8 PHYSICIAN PHYSICIAN STIMULATI S LAB S LAB NG HORMONE TSH DEBRIDEME 23647 KARRIE YOON, NT 8 KRISTI Akhtar MASTOIDEC JUANCHO CAVITY SIMPLE DRUG 25542 COMBINED COMBINED SCREEN 8 PHYSICIAN PHYSICIAN QUANTITAT S LAB S LAB BROOK[place] PHENYTOIN TOTAL MICROSURG 64418 KARRIE YOON, TQS REQ 8 KRISTI Akhtar USE OPERATING MICROSCOP E MICROSURG 08097 KARRIE YOON, TQS REQ 8 KRISTI Akhtar USE OPERATING MICROSCOP E DEBRIDEME 81359 KARRIE YOON, NT 8 KRISTI Akhtar MASTOIDEC JUANCHO CAVITY SIMPLE GENERAL 96252 COMBINED COMBINED HEALTH 8 PHYSICIAN PHYSICIAN PANEL S LAB S LAB DRUG 57261 COMBINED COMBINED SCREEN 8 PHYSICIAN PHYSICIAN QUANTITAT S LAB S LAB BROOK[place]NN PHENYTOIN TOTAL COMPUTER- 66492 [facility] AIDED 8 MEDICAL STEPHANI DETECTION IMAGING ASSOCIATE SCREENING S MAMMOGRAP HY SCREENING 34571 [facility] MEME 8 MEDICAL STEPHANI MAMMOGRAP IMAGING HY ASSOCIATE BILATERAL S DUP-SCAN 13191 [facility] XTR VEINS 8 MEDICAL STEPHANI IMAGING UNILATERA ASSOCIATE L/LIMITED S STUDY DUPLEX 76188 [facility] VIRGILIO CEJA 8 MEDICAL ZHAO P EXTRACRAN IMAGING IAL ART ASSOCIATE COMPL BI S STUDY COMPREHEN 76750 [facility] [address] [facility] THYROID 8 [facility] STIMULATI INC INC NG HORMONE TSH DRUG 36094 [facility] SCREEN [facility] QUANTITAT INC INC BROOKLYNN PHENYTOIN TOTAL LIPID 66393 [facility] OMNTEIRO PANEL 8 [facility] INC INC BLOOD 99262 [facility] COUNT 8 [facility] COMPLETE INC INC AUTO&AUTO DIFRNTL WBC RADIOLOGI 19515 LATONYA HANKS C EXAM 8 DON R DON R PELVIS COMPL MINIMUM 3 VIEWS RADIOLOGI 89165 LATONYA HANKS C EXAM 8 DON R DON R PELVIS COMPL MINIMUM 3 VIEWS COMMODE [id number] DEBORAH CABRERA CHAIR 8 HOME MED HOME MED MOBILE OR EQUIP. EQUIP. TruQu [facility] STATIONAR Y W/FIXED ARMS DRUG 26344 [facility] SCREEN 8 MED LAB MED LAB QUANTITAT BROOKLYNN PHENYTOIN TOTAL SBSQ 58065 LATONYA HANKS, NURSING 8 DON R DON R FACILITY CARE/DAY E/M STABLE 10 MIN DRUG 99558 [facility] SCREEN 8 MED LAB MED LAB [place] [address] [facility] 1/> AREAS 8 HEALTHCAR HEALTHCAR EA 15 E E MIN GAIT TRAINJ W/STAIR THERAPEUT 58227 [facility]ILY[facility] ACTVITY 8 HEALTHCAR HEALTHCAR DIRECT PT E E CONTACT EACH 15 MIN PHYSICAL 39242 [facility] THERAPY 8 HEALTHCAR HEALTHCAR EVALUATIO E E N THERAPEUT 91037 AMY AMESMONT IC PX /> 8 HEALTHCAR HEALTHCAR AREAS E E E[place] [address] [facility] /> AREAS 8 HEALTHCAR HEALTHCAR EACH [address] [facility] 94198 LATONYA HANKS, DISCHARGE 8 DON R DON R DAY MANAGEMEN T 30 MIN/< GROUND [id number] [facility] 8 AMBULANCE AMBULANCE PER SERVICE SERVICE STATUTE MILE SELF-CARE 49668 AMY DIAZT /HOME 8 HEALTHCAR HEALTHCAR MGMT E E TRAINING EACH [address] [facility] 8 HEALTHCAR HEALTHCAR THERAPY E E EVALUATIO N SBSQ [address]3285 [place] [address] DON R DON R CARE/DAY 25 MINUTES SBSQ 49062 [place] [address] DON R DON R CARE/DAY 25 MINUTES SBSQ 39493 [place] [address] DON R DON R CARE/DAY 25 MINUTES RADEX 94086 [facility], SPINE 8 MEDICAL ZHAO P LUMBOSACR IMAGING AL ASSOCIATE MINIMUM 4 S VIEWS RADEX 45349 [facility] 8 MEDICAL ZHAO P COCCYX IMAGING MINIMUM 2 ASSOCIATE VIEWS S INITIAL [address]3566 [place] [address] DON R DON R CARE/DAY [address] LOWER [address] [facility], EXTREMITY 8 MEDICAL ZHAO P W/O IMAGING CONTRAST ASSOCIATE MATERIAL S RADEX HIP 14637 [facility], MEDICAL ZHAO P UNILATERA IMAGING L ASSOCIATE COMPLETE S MINIMUM 2 VIEWS RADIOLOGI 12546 [facility] 8 MEDICAL ZHAO P EXAMINATI IMAGING ON PELVIS ASSOCIATE 1/2 S VIEWS 3D 36013 [facility] MED[facility] ZHAO P IMAGING W/INTERP& ASSOCIATE POSTPROC S DIFF WORK STATION RADIOLOGI 89427 [facility]OP[facility] ROBERTO 8 CALISTA S EXAMINATI RADIOLOGY ON PELVIS 1/2 ASSOCIATE VIEWS S PSC RADEX HIP 20860 [facility] CALISTA S UNILATERA RADIOLOGY L COMPLETE ASSOCIATE MINIMUM 2 S PSC VIEWS GROUND A0425 [facility] MILEAGE 8 [facility] PER STATUTE AMBULANCE AMBULANCE MILE AMBULANCE A0429 [facility] SERVICE 8 [facility] [facility] CINTHIA CO BLS EMERGENCY AMBULANCE AMBULANCE TRANSPORT DEBRIDEME 13774 KARRIE YOON, NT 8 KRISTI G KRISTI G MASTOIDEC JUANCHO CAVITY CMPLX LEVEL III 10512 PATHOLOGY PATHOLOGY SURG 8 & & PATHOLOGY CYTOLOGY CYTOLOGY LAB LAB GROSS&TANI ROSCOPIC EXAM MICROSURG 17700 KARRIE YOON, CATHERINES REQ 8 KRISTI Akhtar USE OPERATING MICROSCOP E ANESTHESI 67284 [facility] ZABRINA Maxine 8 ANESTH FAUSTO A EXTERNAL OF THE MIDDLE & BLUEGRASS INNER EAR W/BX NOS DEBRIDEME 88335 KARRIE YOON, NT 8 KRISTI Akhtar MASTOIDEC JUANCHO CAVITY SIMPLE MICROSURG 69025 KARRIE YOON, CATHERINES REQ 8 KRISTI Akhtar USE OPERATING MICROSCOP E Encounters Encounter Start End Date Code Location Performer Type Date OFFICE 99141 A C KILPELA OUTPATIEN 7 7 NANCY FIELDS T VISIT PSC 15 MINUTES OFFICE 10011 [facility] YOON OUTPATIEN 7 7 PHYSICIAN T VISIT S GROUP 15 MINUTES OFFICE 08230 [facility] YOON OUTPATIEN 7 7 PHYSICIAN T VISIT S GROUP 15 MINUTES OFFICE 78705 [facility] YOON OUTPATIEN 7 7 PHYSICIAN T VISIT S GROUP 15 MINUTES OFFICE 55256 A C KILPELA OUTPATIEN 7 7 NANCY FIELDS T VISIT PSC 15 MINUTES OFFICE 69428 A C KILPELA OUTPATIEN 7 7 NANCY FIELDS T VISIT PSC 15 MINUTES OFFICE 12046 [facility] YOON OUTPATIEN 7 7 PHYSICIAN T VISIT S GROUP 15 MINUTES [facility] OUTPATIEN INC T EMERGENCY 98013 [facility] 7 7 [facility] DEPARTMEN INC T VISIT MODERATE SEVERITY EMERGENCY 62606 [facility] ALEJANDRO 7 7 PHYSICIAN DEPARTMEN S, [facility] T VISIT HIGH/URGE NT SEVERITY OFFICE 90935 A C KILPELA OUTPATIEN 7 7 NANCY FIELDS T VISIT PSC 15 MINUTES OFFICE 54634 A C KILPELA OUTPATIEN 7 7 NANCY FIELDS T VISIT PSC 15 MINUTES [facility]OSPITAL [facility] 7 [facility] OUTPATIEN INC T OFFICE 48526 [facility] RONDA CONSULTAT 7 7 PHYSICIAN ION S GROUP [facility] PATIENT 40 MIN OFFICE 49073 A C KILPELA OUTPATIEN 6 6 NANCY FIELDS T VISIT PSC 15 MINUTES OFFICE 95539 [facility] YOON OUTPATIEN 6 6 PHYSICIAN KERI T VISIT S GROUP 10 MINUTES [facility]PATIEN INC [facility] 6 6 [facility] OUTPATIEN INC T OFFICE 24298 [facility] YOON OUTPATIEN 6 6 PHYSICIAN KERI T VISIT S GROUP 15 MINUTES [facility] - 6 6 [facility] OUTPATIEN INC [facility] 6 [facility] OUTPATIEN INC T OFFICE 37459 [facility] YOON OUTPATIEN 6 6 PHYSICIAN KERI T VISIT S GROUP 10 MINUTES [facility] - 6 6 [facility] OUTPATIEN INC T OFFICE 28304 A C KILPELA OUTPATIEN 6 6 NANCY JUAREZ T VISIT PSC 25 MINUTES OFFICE 30471 A C FLORENTINO MARTY OUTPATIEN 6 6 NANCY FIELDS T VISIT PSC 15 MINUTES [facility] - 6 6 [facility] OUTPATIEN INC T OFFICE 70183 [facility] YOON OUTPATIEN 6 6 PHYSICIAN KERI T VISIT S GROUP 15 MINUTES [facility] 07216 A C KILPELA PREVENTIV 6 6 NANCY JUAREZ E MED EST [facility] PATIENT 40-64YRS OFFICE 49770 [facility] YOON OUTPATIEN 6 6 PHYSICIAN KERI T VISIT S GROUP 15 MINUTES OFFICE 63123 A C NANCY OUTPATIEN 6 6 NANCY OLSON T VISIT PSC 15 MINUTES OFFICE 70613 [place] HILLIARD OUTPATIVARSHA 6 6 NANCY FIELDS JEMaxine T VISIT PSC 15 MINUTES OFFICE 93788 [facility] YOON OUTPATIEN 6 6 PHYSICIAN KERI T VISIT S GROUP 15 MINUTES OFFICE 84005 [place] [facility] MARTY OUTPATIEN 5 5 NANCY FIELDS T VISIT PSC 25 MINUTES OFFICE 09466 [place] FERGUSON OUTPATIEN 5 5 NANCY FIELDS T VISIT PSC 15 MINUTES HOME [facility], 5 5 HOME INPATIENT HEALTH AGENCY HOME [facility], 5 5 HOME INPATIENT HEALTH AGENCY OFFICE 08380 [place] FERGUSON OUTPATIEN 5 5 NANCY FIELDS T VISIT PSC 15 MINUTES OFFICE 24569 [place] [facility] OUTPATIEN 5 5 NANCY FIELDS T VISIT PSC 15 MINUTES OFFICE 39726 [facility] YOON OUTPATIEN 5 5 PHYSICIAN KERI T VISIT S GROUP 15 MINUTES EMERGENCY 66413 [facility] 5 5 PHYSICIAN HARRY [facility] MODERATE SEVERITY EMERGENCY 98388 [facility] 5 5 [facility] DEPARTMEN INC T VISIT LOW/MODER SEVERITY [facility] - 5 5 [facility] OUTPATIEN INC T OFFICE 34948 [facility] YOON OUTPATIEN 5 5 PHYSICIAN KERI T NEW 30 S GROUP MINUTES OFFICE 70860 [place] FERGUSON OUTPATIEN 5 5 NANCY FIELDS T VISIT PSC 25 MINUTES OFFICE 35572 [place] [facility] OUTPATIEN 5 5 NANCY FIELDS T VISIT PSC 15 MINUTES OFFICE 51079 [place] [facility] OUTPATIEN 5 5 NANCY FIELDS T VISIT PSC 15 MINUTES OFFICE 28880 A C FLORENTINO MARTY OUTPATIEN 4 4 NANCY FIELDS T VISIT PSC 15 MINUTES OFFICE 92961 Y[facility] YOON OUTPATIEN 4 4 KERI KERI T VISIT 15 MINUTES [facility] 4 4 [facility] OUTPATIEN INC T OFFICE 24365 [facility] YOON OUTPATIEN 4 4 KERI KERI T VISIT 15 MINUTES OFFICE 10724 [place]OR[place]INO MARTY [place] MARTY OUTPATIEN 4 4 T VISIT 15 MINUTES OFFICE 57530 [place] MARTY [place] MARTY OUTPATIEN 4 4 T VISIT 25 MINUTES OFFICE 92645 FLOR[place]INO MARTY [place] MARTY OUTPATIEN 4 4 T VISIT 15 MINUTES [facility] 4 [facility] OUTPATIEN INC T OFFICE 35192 FLORENTINOOBEY SANTAMARIAES MARTY OUTPATIEN 4 4 T VISIT 25 MINUTES OFFICE 62792 [facility] Y[facility]ON OUTPATIEN 4 4 KERI KERI T VISIT 15 MINUTES OFFICE 01191 [place] MARTY MUNOZES MARTY OUTPATIEN 4 4 T VISIT 15 MINUTES OFFICE 32430 [place] MARTY MUNOZES MARTY OUTPATIEN 3 3 T VISIT 10 MINUTES OFFICE 20886 FLORENTINOOBEY SANTAMARIAES AMRTY OUTPATIEN 3 3 T VISIT 15 MINUTES OFFICE 34782 A C FLORENTINO MARTY OUTPATIEN 3 3 NANCY FIELDS T VISIT PSC 15 MINUTES OFFICE 66531 [place] [facility] OUTPATIEN 3 3 NANCY FIELDS T VISIT PSC 15 MINUTES OFFICE 03586 A C ARMINDA OUTPATIEN 3 3 NANCY JUAREZ T VISIT PSC 15 MINUTES [facility] - 3 3 [facility] OUTPATIEN INC T HOME [facility] 3 3 HOME OUTPATIEN HEALTH T AGENCY OFFICE 44494 Maxine Reynoso ARMINDA OUTPATIEN 3 3 NANCY Fraga NEW 30 PSC MINUTES OFFICE 16857 LATONYA HANKS OUTPATIEN 3 3 DON DON T VISIT 15 MINUTES OFFICE 01980 KARRIE YOON OUTPATIEN 3 3 KERI KERI T VISIT 15 MINUTES [facility]OSPITAL [facility] - 3 3 [facility] OUTPATIEN INC T EMERGENCY 32029 [facility] 3 3 [facility] DEPARTMEN INC T VISIT LOW/MODER SEVERITY EMERGENCY 20583 STEFFANY JETER 3 3 III ADDIS III ADDIS [facility] VIS[facility] HIGH/URGE NT SEVERITY [facility] - 3 3 [facility] OUTPATIEN INC T OFFICE 24073 KARRIE YOON OUTPATIEN 3 3 KERI KERI T VISIT 10 MINUTES OFFICE 16477 LATONYA HOLGUINS OUTPATIEN 3 3 DON DON T VISIT 15 MINUTES [facility] - 3 3 [facility] OUTPATIEN INC T [facility] - [facility] 3 [facility] OUTPATIEN INC T PERIODIC 21912 LATONYA HOLGUINS PREVENTIV 3 3 DON DON E MED EST PATIENT 40-64YRS OFFICE 58742 KARRIE YOON OUTPATIEN 3 3 KERI KERI T VISIT 25 MINUTES HOME [facility], 3 3 HOME OUTPATIEN HEALTH T AGENCY HOME [facility], 2 2 HOME OUTPATIEN HEALTH T AGENCY EMERGENCY 77171 [facility] 2 2 [facility] DEPARTMEN INC T VISIT LOW/MODER SEVERITY [facility] - 2 2 [facility] OUTPATIEN INC T EMERGENCY 56719 WEHRMAN WEHRMAN 2 2 III ADDIS III ADDIS DEPARTMEN T VISIT HIGH/URGE NT SEVERITY OFFICE 80584 [facility] HANKS OUTPATIEN 2 2 DON DON T VISIT 25 MINUTES HOSPITAL [facility] - [address] [facility] OUTPATIEN [facility] EMERGENCY 05393 [place] [address] [facility] VISIT LOW/MODER SEVERITY EMERGENCY 90460 NAHOMY COREA 2 2 [facility] T VISIT HIGH/URGE NT SEVERITY OFFICE 15447 HANKS HANKS OUTPATIEN 2 2 DON DON T VISIT 25 MINUTES OFFICE 20399 HANKS HANKS OUTPATIEN 2 2 DON DON T VISIT 25 MINUTES [facility] - [address] [facility] OUTPATIEN [facility] OFFICE 53284 HANKS HANKS OUTPATIEN 2 2 DON DON T VISIT 25 MINUTES OFFICE 87185 HANKS HANKS OUTPATIEN 2 2 DON DON T VISIT 15 MINUTES [facility] - [address] [facility] OUTPATIEN [facility] - [address] [facility]PATIEN [facility] OFFICE 50811 HANKS HANKS OUTPATIEN 2 2 DON DON T VISIT 15 MINUTES HOME [facility], 2 2 [facility]IST[facility] OUTPATIEN & HOME HE HOME [facility], 2 2 REGISTRY OUTPATIEN & HOME [facility] OFFICE 95383 HANKS HANKS OUTPATIEN 2 2 DON DON T VISIT 15 MINUTES OFFICE 96790 HANKS HANKS OUTPATIEN 1 1 DON DON T VISIT 15 MINUTES [facility] [facility] [address] [facility]PATIEN [facility] 1 [facility] OUTPATIEN INC T OFFICE 55149 [place] [facility] 1 1 [facility] DO T VISIT CLINIC 25 PSC MINUTES OFFICE 00554 LATONYA HOLGUINS OUTPATIEN 1 1 DON DON T VISIT 15 MINUTES OFFICE 11396 HANKS HANKS OUTPATIEN 1 1 DON DON T VISIT 15 MINUTES [facility] 1 [facility] OUTPAT[facility] INC T OFFICE 89773 [place] OUT[facility] 1 1 [facility] DO T VISIT CLINIC 25 PSC MINUTES OFFICE 74419 [facility]KS HANKS OUTPATIEN 1 1 DON DON T VISIT 15 MINUTES [facility] 1 [facility] OUTPATIEN INC T EMERGENCY 30214 [facility] 1 1 [facility] DEPARTMEN INC T VISIT HIGH/URGE NT SEVERITY EMERGENCY 76722 PEDRITO HERNANDEZ DEPT 1 1 EMERGENCY VISIT SERVICES HIGH SEVERITY& THREAT FUN OFFICE 85669 KARRIE LIMON OUTPATIEN 1 1 KERI KERI T VISIT 15 MINUTES [facility] - [facility] 1 [facility] OUTPATIEN INC T EMERGENCY 53548 [facility] 1 1 [facility] DEPARTMEN INC T VISIT HIGH/URGE NT SEVERITY EMERGENCY 09497 PEDRITO JTEER DEPT 1 1 EMERGENCY III ADDIS VISIT SERVICES HIGH SEVERITY& THREAT FUN [facility]OSP[facility] - [facility] 1 [facility] OUTPATIEN INC T OFFICE 68244 LATONYA SHEAHENS OUTPATIEN 1 1 DON DON T VISIT 15 MINUTES [facility] - 1 1 [facility] OUTPATIEN INC T OFFICE 67689 [facility] [facility] 1 1 [place] [facility] NEW/ESTAB PSC PATIENT 60 MIN [facility] - 1 1 [facility] OUTPATIEN INC T OFFICE 31127 LATONYA HOLGUINS OUTPATIEN 1 1 DON DON T VISIT 15 MINUTES [facility] - 1 1 [facility] OUTPATIEN INC T EMERGENCY 10995 PEDRITO COREA DEPT 1 1 EMERGENCY TANI VISIT SERVICES HIGH SEVERITY& THREAT FUN EMERGENCY 07065 [place] [address] [facility] DEPARTMEN INC T VISIT HIGH/URGE NT SEVERITY [facility]PITAL [facility] - 1 1 [facility] OUTPATIEN [facility] T OFFICE 10690 HANKS HANKS OUTPATIEN 0 0 DON DON T VISIT 15 MINUTES EMERGENCY 72021 [place] [address] [facility] DEPARTMEN INC T VISIT LOW/MODER SEVERITY EMERGENCY 13323 PEDRITO HERNANDEZ DEPT 0 0 EMERGENCY VISIT SERVICES HIGH SEVERITY& THREAT [facility] [place] - [address] [facility] OUTPATIEN [facility] T OFFICE 95789 CONRAD MARTINES OUTPATIEN 0 0 RUPERT RUPERT T NEW 45 MINUTES OFFICE 84637 HANKS HANKS OUTPATIEN 0 0 DON DON T VISIT 15 MINUTES OFFICE 79720 YOON YOON OUTPATIEN 0 0 KERI KERI T VISIT 15 MINUTES [facility] OUTPATIEN INC T OFFICE 33096 HANKS HANKS OUTPATIEN 0 0 DON DON T VISIT 15 MINUTES OFFICE 57790 YOON YOON OUTPATIEN 0 0 KERI KERI T VISIT 10 MINUTES OFFICE 40938 HANKS HANKS OUTPATIEN 0 0 DON DON T VISIT 15 MINUTES EMERGENCY 83755 [facility] 0 0 [facility] DEPARTMEN INC T VISIT HIGH/URGE NT SEVERITY [facility] - [address] [facility] OUTPATIEN [facility] T OFFICE 09575 LATONYA HANKS OUTPATIEN 0 0 DON DON T VISIT 15 MINUTES [facility] - 0 0 [facility] OUTPATIEN [facility] T OFFICE 93824 LATONYA HANKS OUTPATIEN 0 0 DON R DON R T VISIT 15 MINUTES OFFICE 41627 YOONKARRIE, OUTPATIEN 0 0 KRISTI G KRISTI G T VISIT 15 MINUTES [facility] 0 0 [facility] [place] - 0 0 [facility] 93817 KARRIE YOON OUTPATIEN 0 0 KRISTI G KRISTI G T VISIT 15 MINUTES [facility] - [address] [facility] T PERIODIC 40994 LATONYA HANKS, PREVENTIV 0 0 DON R DON R E MED EST PATIENT 40-64YRS OFFICE 17896 CONRAD MARTINES OUTPATIEN 0 0 , EDWIN EDWIN T VISIT W W 15 MINUTES [facility]OSP[facility] - [address] [facility] OUTPATIEN [facility] T OFFICE 81373 LATONYA HANKS, OUTPATIEN 0 0 DON R DON R T VISIT 15 MINUTES [facility] - [address] [facility] OUTPATIEN [facility] T EMERGENCY 85389 [place] [address] [facility] DEPARTMEN [facility] T VISIT HIGH/URGE NT SEVERITY OFFICE 31259 LATONYA HANKS, OUTPATIEN 0 0 DON R DON R T VISIT 15 MINUTES [facility] 0 [facility] OUTPATIEN INC [facility] OUT[facility]EN [facility] T OFFICE 03541 B[facility] WISEMAN OUTPATIEN 0 0 TRACY TRACY T VISIT 15 MINUTES [facility] 0 [facility] OUTPATIEN [facility] - 0 0 [facility] - 9 9 [facility] - 9 9 [facility] OUTPATIEN [facility] T OFFICE 67134 LATONYA HANKS OUTPATIEN 9 9 DON R DON R T VISIT 15 MINUTES OFFICE 39196 BOWEN WISEMAN OUTPATIEN 9 9 TRACY TRACY T VISIT 15 MINUTES OFFICE 38782 [facility] OUTPATIEN 9 9 TRACY TRACY T VISIT 15 MINUTES OFFICE 94240 LATONYA HANKS OUTPATIEN 9 9 DON R DON R T VISIT 15 MINUTES OFFICE 75529 LATONYA HANKS OUTPATIEN 9 9 DON R DON R T VISIT 15 MINUTES [facility] - 9 9 [facility] OUTPATIEN INC [facility] 9 9 [facility] OUT[facility]EN [facility] T OFFICE 72166 LATONYA HANKS OUTPATIEN 9 9 DON R DON R T VISIT 15 MINUTES [facility] - 9 9 [facility] OUTPATIEN INC [facility] 9 9 [facility] OUTPATIEN INC [facility] 9 [facility] T OFFICE 84132 BOWEN WISEMAN OUTPATIEN 9 9 TRACY TRACY T NEW 45 MINUTES EMERGENCY 28527 PEDRITO COREA, 9 9 EMERGENCY [facility] T VISIT MODERATE ASSOCIATE SEVERITY S [facility]OSP[facility] - 9 9 [facility] OUTPATIEN INC T OFFICE 10912 LATONYA HANKS OUTPATIEN 9 9 DON R DON R T VISIT 15 MINUTES OFFICE 69240 LATONYA HANKS OUTPATIEN 9 9 DON R DON R T VISIT 15 MINUTES EMERGENCY 98764 [facility] DEPT 9 9 [facility] VISIT INC HIGH SEVERITY& THREAT [facility] 9 [facility] OUTPATIEN INC T HOME 77192 FAMILY VISIT EST 9 9 HOME PT HEALTH MOD-HI CARE INC SEVERITY 40 MINUTES HOME [facility] HE[facility], 9 9 HOME OUTPATIEN HEALTH T CARE INC HOME 70870 FAMILY VISIT EST 9 9 HOME PT HEALTH MOD-HI CARE INC SEVERITY 40 MINUTES HOME [facility], 9 9 HOME OUTPATIEN HEALTH T CARE INC HOME 64070 FAMILY VISIT EST 9 9 HOME PT HEALTH MOD-HI CARE INC SEVERITY 40 MINUTES HOME [facility], 9 9 HOME OUTPATIEN HEALTH T CARE INC OFFICE 41404 LATNOYA HANKS OUTPATIEN 9 9 DON R DON R T VISIT 15 MINUTES OFFICE 97335 LATONYA HANKS OUTPATIEN 8 8 DON R DON R T VISIT 15 MINUTES [facility] 8 [facility] OUTPATIEN INC T OFFICE 56587 LATONYA HANKS OUTPATIEN 8 8 DON R DON R T VISIT 15 MINUTES [facility] - 8 8 [facility] OUTPATIEN INC T EMERGENCY 77351 [facility] 8 8 [facility] DEPARTMEN INC T VISIT LOW/MODER SEVERITY EMERGENCY 93001 CLARY SALDANA, 8 8 [facility] T VISIT ON MODERATE SEVERITY [facility] 8 8 [facility] OUTPATIEN INC T [facility] 8 8 [facility] OUTPATIEN INC T OFFICE 03821 LATONYA HANKS OUTPATIVARSHA 8 8 DON R DON R T VISIT 15 MINUTES OFFICE 53003 LATONYA HANKS OUTPATIEN 8 8 DON R DON R T VISIT 15 MINUTES OFFICE 54337 LATONYA HANKS OUTPATIEN 8 8 DON R DON R T VISIT 15 MINUTES OFFICE 21702 LATONYA HANKS OUTPATIEN 8 8 DON R DON R T VISIT 15 MINUTES HOME [facility], 8 8 [facility]ENCY [facility] 8 8 HEALTHCAR - OTHER E OFFICE 08522 KARRIE YOON OUTPATIEN 8 8 KRISTI BERRY G T VISIT 15 MINUTES [facility] 8 8 [facility]ALTH[facility] - OTHER E [facility]OSP[facility] - 8 8 [facility] INPATIENT INC OFFICE 26747 KARRIE YOON OUTPATIEN 8 8 KRISTI G KRISTI G T VISIT 15 MINUTES
--- OUTSIDE RECORDS SUMMARY | 2017-04-07 21:14 | External Medical Summary Rpt | CCD ---
Author Author , ALISABRITTNEY Organization [facility] Address Unknown Phone [email or web address] Care Team Providers Care Dial Maker Name Role Phone A Angeles CRUZ MD [...] Unavailable EDWIN ENRIQUEZ, Unavailable Unavailable EDWIN MARTINES [facility] Unavailable [place], [facility] [place] [facility] Unavailable Un[place] [facility], Unavailable Unavailable [facility] Unavailable Unavailable [facility], [facility] TRANS Unavailable Unavailable SERVBLUEGRAS, [facility] TRANS [facility] FEDERATED Unavailable Unavailable TRANSPORTATION SER, [facility] TRANSPORTATION SER NAHOMY KIM Unavailable Unavailable TANI ERIKA COREA, Unavailable Unavailable ERIKA COREA [facility] Unavailable [facility] Unavailable Unavailable INC, [facility] Unavailable Unavailable HOSPITAL P, [facility] CALISTA MEJIA, Unavailable Unavailable CALISTA MEJIA HINES Unavailable Unavailable HOWARDBRADFORDHOWARD Unavailable Unavailable MARIETTA HOWARD, Unavailable Unavailable MARIETTA HOWARD A [facility], Unavailable Unavailable [facility] Unavailable Unavailable IMAGING [facility], [facility], Unavailable Unavailable [facility] KILPELA, KILPELA Unavailable Unavailable KILPELA JEA, KILPELA Unavailable Unavailable JEA [facility] Unavailable Unavailable HOLDINGS, [facility] Unavailable Unavailable HOLDINGS, [facility] [...] JR DWI, AUDIE Unavailable Unavailable JR DWI [facility] Unavailable Unavailable 11, [facility] 11 [facility] Unavailable Unavailable ACTION, [facility] POULAN O2, Unavailable Unavailable POULAN O2 NAVIN HARRY, NAVIN Unavailable Unavailable HARRY [facility], Unavailable Unavailable [facility] Unavailable Unavailable SERVICES, [facility] [employer] Unavailable Unavailable AMBULANCE, [facility] [employer] [facility] LORRAINE ZUNIGA JR Unavailable Unavailable F, [facility] Unavailable Unavailable [facility] ZHAO CEJA, Unavailable Unavailable ZHAO CEJA FLORENTINO MARTY, FLORENTINO MARTY Unavailable Unavailable FLORENTINO MARTY, FLORENTINO MARTY Unavailable Unavailable MULBERRY HARRY, Unavailable Unavailable MULBERRY HARRY [facility] Unavailable Unavailable [facility] & Unavailable Unavailable [...] JACKY CASON MD Unavailable Unavailable [facility], TRACY CASON MD [facility] SCIFRES ANG, SCIFRES Unavailable Unavailable ANG SCIFRES [...] SOURCE FAUSTO GERBER, Unavailable Unavailable FAUSTO GERBER [facility] # Unavailable Unavailable [id number], [facility] # [id number] FLAVIA ALEJANDRO Unavailable Unavailable [facility] Unavailable Unavailable AGENCY, [facility] WEHRMAN III ADDIS, Unavailable Unavailable WEHRMAN III ADDIS WEDEIDRE III ADDIS, Unavailable Unavailable WEVISHNU III NANCY LEA Unavailable Unavailable WHITNEY Purpose Continuity of Care Document - 07-04-2007 through 2016 Problems Code Diagnosis DOS Provider Status R748 ABNORMAL 02-21-2017 [facility] [employer]. OTHER SERUM ENZYMES H6691 OTITIS 01-29-[address] [facility] MEDIA PHYSICIANS UNSPECIFIED GROUP RIGHT EAR H7011 CHRONIC 01-29-[address] [facility] MASTOIDITIS PHYSICIANS RIGHT EAR GROUP H7091 UNSPECIFIED 01-01-[address] [facility] PHYSICIANS MASTOIDITIS GROUP RIGHT EAR H7441 POLYP OF 01-01-[address] 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 CIENCY PHYSICIANS RELATED GROUP DIFFUSE ENDEMIC GOITER E069 THYROIDITIS 12-11-[address] [facility] PHYSICIANS UNSPECIFIED GROUP R69 ILLNESS 12-11-2016 FEDERATED UNSPECIFIED TRANSPORTAT ION SER D649 ANEMIA 11-16-2016 [facility] UNSPECIFIED YOGESH HOLDINGS E785 HYPERLIPIDE 11-16-2016 [facility] GWEN YOGESH UNSPECIFIED HOLDINGS X44173 EPILEPSY 11-16-2016 [facility] UNS NOT YOGESH [...] 10-16-2016 A Angeles CRUZ UNSPECISABEL FIELDS PSC [id number] UNS FOREIGN 10-16-2016 A Angeles CRUZ BODY PSC LARYNX CAUS OTH INJURY INIT ENC Z6825 BODY MASS 10-16-2016 A Angeles CRUZ INDEX BMI PSC 25.0-25.9 ADULT E039 HYPOTHYROID 10-12-[address] [facility] ISM PHYSICIANS UNSPECIFIED GROUP [id number] FOOD IN 10-09-2016 [facility] ESOPHAGUS PHYSICIANS, CAUSING OTH PLLC INJURY INITIAL ENC Z0389 ENCOUNTER 10-09-2016 [facility] OT MEDICAL SUSPCT DZ & IMAGING ASS COND RULED OUT R2233 LOC 09-07-2016 A Angeles CRUZ SWELLING PSC MASS & LUMP UPPER LIMB BILATERAL K811 CHRONIC 07-05-[address] [facility] CHOLECYSTIT PHYSICIANS IS GROUP F05061 ENCOUNTER 07-05-2016 [facility] AL CARIOVASCUL AR EXAM H92350 ENCOUNTER 07-05-2016 [facility] P AL RESPIRATORY EXAM M99601 ENCOUNTER 07-05-2016 [facility] P AL LABORATORY EXAM J309 ALLERGIC 05-31-2016 A Angeles CRUZ RHINITIS [facility] UNSPECIFIED H7013 CHRONIC 05-26-[address] [facility] MASTOIDITIS PHYSICIANS BILATERAL GROUP H6522 CHRONIC 05-11-2016 [facility] SEROUS [facility] OTITIS INC MEDIA LEFT EAR R4702 DYSPHASIA 05-11-2016 [facility] R7989 OTHER SPEC 05-11-2016 [facility] ABNORMAL MEDICAL FINDINGS IMAGING ASS BLOOD CHEMISTRY R945 ABNORMAL 05-11-2016 [facility] RESULTS OF [facility] LIVER INC FUNCTION STUDIES E876 HYPOKALEMIA 05-08-2016 [facility] R21 RASH AND 04-07-2016 [facility] OTHER YOGESH NONSPECIFIC HOLDINGS SKIN ERUPTION R0781 PLEURODYNIA 02-22-2016 [facility] R252 CRAMP AND 02-17-2016 [facility] SPASM YOGESH HOLDINGS R5383 OTHER 02-17-2016 [facility] FATIGUE YOGESH HOLDINGS R0981 NASAL 01-04-2016 A Angeles CRUZ CONGESTION PSC Z1231 ENCOUNTER 11-18-2015 [facility] SCREENING MEDICAL MAMMO MALIG IMAGING ASS NEOPLASM BREAST H905 UNSPECIFIED 11-11-[address] [facility] PHYSICIANS SENSORINEUR GROUP AL HEARING LOSS M95251 ENCOUNTER 11-05-2015 [facility] FEED CRUSHER EXAM YOGESH GENERAL RTN HOLDINGS W/O ABNORMAL FIND H6092 UNSPECIFIED 09-22-[address] [facility] OTITIS PHYSICIANS EXTERNA GROUP LEFT EAR H7012 CHRONIC 09-22-[address] [facility] MASTOIDITIS PHYSICIANS LEFT EAR GROUP [id number] SPONDYLOSIS 07-01-[address] [facility] W/O PHYSICIANS MYELOPATH/R GROUP ADICULOPATH Y CERV RGN 4011 ESSENTIAL 03-05-2015 A Angeles PATEL MD PSC N, BENIGN 66296 03-05-2015 [facility] TRANSPORTAT ION SER 9331 FOREIGN 02-22-[address] [facility] BODY IN PHYSICIANS LARYNX GROUP 4019 UNSPECIFIED 02-15-2015 [facility] ESSENTIAL [facility] HYPERTENSIO INC N 5303 STRICTURE 02-15-2015 [facility] AND [facility] STENOSIS OF INC ESOPHAGUS 27549 OTHER 02-15-2015 [facility] SYMPTOMS MEDICAL INVOLVING IMAGING ASS HEAD AND NECK 97416 DYSPHAGIA 02-15-2015 [facility] UNSPECIFIED PHYSICIANS, PLLC V140 PERSONAL 02-15-2015 [facility] HISTORY OF [facility] ALLERGY TO INC PENICILLIN 3814 NONSUPPRATV 01-20-[address] [facility] OTITIS PHYSICIANS MEDIA NOT GROUP SPEC ACUT/CHRON 3839 UNSPECIFIED 01-20-[address] [facility] PHYSICIANS MASTOIDITIS GROUP 4730 CHRONIC 01-20-[address] [facility] MAXILLARY PHYSICIANS SINUSITIS GROUP 2449 UNSPECIFIED 11-24-2014 [facility] HYPOTHYROID [place]M 62065 UNSPEC 11-24-2014 A Angeles CRUZ EPILEPSY PSC WITHOUT MENTION INTRACT EPILEPSY 4779 ALLERGIC 11-24-2014 A Angeles CRUZ RHINITIS PSC CAUSE UNSPECIFIED 3804 IMPACTED 09-10-2014 [facility] K[facility] CERUMEN 3831 CHRONIC 09-10-2014 [facility] MASTOIDITIS 91419 ESOPHAGEAL 07-02-2014 A Angeles CRUZ REFLUX PSC 60618 SIMPLE/UNSP 04-09-2014 [facility] IFIED [facility] P SEROUS OTITIS MEDIA 99844 UNSPECIFIED 04-09-2014 [facility] [address] CHOLE[place] 04-09-2014 [facility] IN OF [facility] P AND MASTOID 58882 OTHER CHEST 01-20-2014 FLORENTINO MARTY PAIN 3674 PRESBYOPIA 12-12-2013 SCIFRES ANG 4770 ALLERGIC 10-31-2013 FLORENTINO MARTY RHINITIS DUE TO POLLEN V7612 OTHER 09-30-2013 [facility] SCREENING [facility] MAMMOGRAM INC 2859 UNSPECIFIED 09-15-2013 [facility] 4610 ACUTE 09-04-2013 [facility] KERI MAXILLARY SINUSITIS 4612 ACUTE 09-04-2013 [facility] K[facility] ETHMOIDAL SINUSITIS 7840 HEADACHE 08-07-2013 FLORENTINO MARTY 56255 CRAMP OF 05-01-2013 FLOR[place]INO MARTY LIMB 87552 HYPERTENSIO 02-12-2013 Maxine CELESTIN MD PSC 84857 OTHER 02-11-2013 [facility] CONVULSIONS [facility] INC 48314 OBSTRUCTIVE 2012 KARRIE SAAVEDRA SLEEP APNEA 23574 ASTHMA, 12-20-2012 [facility] UNSPECIFIED [facility] , INC UNSPECIFIED STATUS 9351 FOREIGN 12-20-2012 WEHRMAN III BODY IN ADDIS ESOPHAGUS 2409 GOITER, 12-12-2012 [facility] UNSPECIFIED [facility] INC 2459 UNSPECIFIED 12-09-2012 KARRIE SAAVEDRA THYROIDITIS 7881 DYSURIA 10-14-2012 [facility] DON 67058 BLISTERS 10-14-2012 [facility] WITH DON EPIDERMAL LOSS DUE TO BURN-BREAST 2724 OTHER AND 09-12-2012 [facility] UNSPECIFIED [facility] INC HYPERLIPIDE GWEN V7231 ROUTINE 09-06-2012 [facility] GYNECOLOGIC DON AL EXAMINATION 95581 OSTEOARTHRO 06-27-2012 [facility] UNSPEC HEALTH WHETHER AGENCY GEN/LOC UNSPEC SITE 7812 ABNORMALITY 06-27-2012 [facility] AGENCY 7993 UNSPECIFIED 06-27-2012 [facility]ALTH AGENCY V571 OTHER 06-27-2012 [facility] PHYSICAL HEALTH THERAPY AGENCY 6259 UNSPEC 06-08-2012 [facility] IMAGING ASS W/FEMALE GENITAL ORGANS 23760 PAIN IN 06-08-2012 [place] JOINT MEDICAL PELVIC IMAGING ASS REGION AND THIGH 7295 PAIN IN 06-08-2012 [facility] SOFT AMBULANCE TISSUES OF SERVICE LIMB 8439 SPRAIN&STRA 06-08-2012 WEHRMAN III IN OF ADDIS UNSPECIFIED SITE OF HIP&THIGH E8889 UNSPECIFIED 06-08-2012 [facility] SERVICE 6980 PRURITUS 06-05-2012 [facility] ANI DON 38660 OSTEOARTHRO 06-04-2012 [place] S UNSPEC MEDICAL GEN/LOC IMAGING ASS PELV REGION&THIG H 34414 DEGEN 06-04-2012 [place] LUMBAR/LUMB MEDICAL OSACRAL IMAGING ASS INTERVERTEB RAL DISC 7243 SCIATICA 06-04-2012 [facility] INC 8472 LUMBAR 06-04-2012 [facility] SPRAIN AND [facility] STRAIN INC 7821 RASH AND 05-31-2012 [facility] OTHER DON NONSPECIFIC SKIN ERUPTION 17064 PAIN IN 05-03-2012 [facility] JOINT, DON SHOULDER REGION 4554 EXTERNAL 02-23-2012 [facility] THROMBOSED DON HEMORRHOIDS 931 FOREIGN 01-29-2012 [facility] BODY IN EAR DON 76574 HEMANGIOMA 01-05-2012 [facility] OF SKIN AND DON SUBCUTANEOU S TISSUE 3813 OTHER&UNSPE 07-12-2011 [facility] C CHRONIC DON NONSUPPURAT [place] OTITIS MEDIA 48121 LOC-REL 04-11-2011 NEW EPILEPSY & SHORTER ES W/SPS CLINIC PSC W/O INTRACTABL EPIL 318 OTHER 03-27-2011 SUPPORT SPECIFIED SOURCE INTELLECTUA L DISABILITIE S 2761 HYPOSMOLALI 2010 [place] TY AND/OR EMERGENCY HYPONATREMI SERVICES A 7802 SYNCOPE AND 2010 [facility] COLLAPSE AMBULANCE SERVICE 38326 NAUSEA WITH 2010 [facility] VOMITING [facility] INC 88888 VOMITING 2010 [place] ALONE [facility]ERG[facility]Y SERVICES 4739 UNSPECIFIED 12-18-2010 [facility] SINUSITIS EMERGENCY SERVICES 7804 DIZZINESS 12-18-2010 [place] AND EMERGENCY GIDDINESS SERVICES 7862 COUGH 12-18-2010 [facility] 7906 OTHER 10-04-2010 [facility] ABNORMAL [facility] BLOOD INC CHEMISTRY 40629 OTHER 09-27-2010 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 460 ACUTE 09-19-2010 [facility] NASOPHARYNG DON ITIS 7810 ABNORMAL 08-20-2010 [facility] INVOLUNTARY AMBULANCE MOVEMENTS SERVICE 04571 MUSCLE 05-13-2010 [facility] WE[facility]NESS [facility] (GENERALIZE SERVICES D) 92469 OTHER 05-13-2010 [facility] MALAISE AND [facility] FATIGUE INC 50034 HYPERSOMNIA 04-08-2010 MARTINES WITH SLEEP RUPERT APNEA UNSPECIFIED 33062 HYPERSOMNIA 04-08-2010 MARTINES RUPERT UNSPECIFIED 91556 UNSPECIFIED 03-31-2010 [facility] VIC INFECTIVE OTITIS EXTERNA 5589 OTH&UNSPEC 03-18-2010 [facility] NONINFECTIO DON US GASTROENTER ITIS&COLITI S 7847 EPISTAXIS 03-03-2010 [facility] KERI 68213 ABDOMINAL 02-11-2010 [facility] PAIN RIGHT DON LOWER QUADRANT 79678 ABDOMINAL 02-11-2010 [facility] PAIN, LEFT DON LOWER QUADRANT 3829 UNSPECIFIED 12-22-2009 [facility], OTITIS DON R MEDIA 30108 THYROTOX 11-02-2009 KARRIE, W/O KRISTI Akhtar GOITER/OTH CAUSE W/O CRISIS 91433 OPEN 08-19-2009 [facility] FRACTURE HOME MED OTHER [employer] SPECIFIED PART PELVIS OTHER 95360 EPILEPSY 08-13-2009 DESHAUN HANKS PG GEOVANNA Casiano /PP UNSPEC EPIS CARE/NA 17381 REFLUX 07-28-2009 [facility] ESOPHAGITIS GEOVANNA R 59673 UNSPECIFIED 07-28-2009 GEOVANNA HANKS CONSTIPATIO N 62415 CLOSED 07-27-2009 [facility] FRACTURE [facility] UNSPECIFIED INC PART RADIUS W/ULNA 2630 MALNUTRITIO 07-13-2009 [facility] CO N [facility] DEGREE 12177 OTHER 07-13-2009 [place] CLOSED MEDICAL FRACTURES IMAGING OF DISTAL ASSOCIATES END OF RADIUS 88637 CLOSED 07-13-2009 [facility] FRACTURE OF TRACY DISTAL END OF ULNA V653 DIETARY 07-13-2009 [facility] CO [facility] E AND CENTER COUNSELING 462 ACUTE 03-17-2009 [facility] PHARYNGITIS GEOVANNA R 4660 ACUTE 03-17-2009 [place] R 59988 CLOSED 03-09-2009 [facility] FRACTURE OF [facility] INC UNSPECIFIED PART OF RADIUS 91712 UNSPECIFIED 03-09-2009 [place] CLOSED MEDICAL FRACTURE OF IMAGING CARPAL ASSOCIATES BONE 26875 UNSPECIFIED 02-03-2009 [place] SITE OF GEOVANNA Casiano ANKLE SPRAIN AND STRAIN 05267 CLOSED 01-12-2009 [facility] COLLES [facility] FRACTURE INC 39025 CLOSED 01-08-2009 [facility] FRACTURE OF [facility] LOWER END INC OF RADIUS WITH ULNA E8490 PLACE OF 01-07-2009 [place] OCCURRENCE, MEDICAL HOME IMAGING ASSOCIATES E8842 ACCIDENTAL 01-07-2009 [place] FALL FROM MEDICAL CHAIR IMAGING ASSOCIATES 920 CONTUSION 12-04-2008 [facility] OF FACE AMBULANCE SCALP AND SERVICE NECK EXCEPT EYE 21758 OTHER 11-05-2008 COMBINED ABNORMAL PHYSICIANS GLUCOSE LAB V5869 LONG-TERM 10-23-2008 [facility] (CURRENT) HEALTH USE OF CARE INC OTHER MEDICATIONS V5883 ENCOUNTER 10-23-2008 [facility] FOR [facility]ALTH THERAPEUTIC CARE INC DRUG MONITORING 1569 ACUTE URIS 09-15-2008 MIKE HANKS UNSPECIFIED SITE 7823 EDEMA 01-08-2008 GEOVANNA HANKS 7242 LUMBAGO 01-02-2008 [facility] INC 7245 UNSPECIFIED 01-02-2008 [place] 7859 OTHER 12-05-2007 [place] SYMPTOMS MEDICAL INVOLVING IMAGING CARDIOVASCU ASSOCIATES LAR SYSTEM 7820 DISTURBANCE 11-25-2007 [facility], OF SKIN DON R SENSATION 8088 UNSPECIFIED 11-13-2007 [facility], CLOSED DON R FRACTURE OF PELVIS 4618 OTHER ACUTE 09-18-2007 LATONYA, SINUSITIS DON R 808 FRACTURE OF 09-02-2007 [facility] P[facility] HOME MED EQUIP. [employer] 3489 UNSPECIFIED 08-29-2007 [facility] CONDITION HEALTH OF BRAIN AGENCY V1588 PERSONAL 08-29-2007 [facility] HISTORY OF HEALTH FALL AGENCY 8208 CLOSED 07-31-2007 [facility] FRACTURE AMBULANCE UNSPECIFIED SERVICE PART NECK FEMUR 8082 CLOSED 07-27-2007 [place] FRACTURE OF MEDICAL PUBIS IMAGING ASSOCIATES 33306 UNS ADVRS 07-27-2007 [facility] EFF OTH RX [facility] MEDICINAL&B INC IOLOGICAL SBSTNC 7937 NONSPC ABN 07-26-2007 DEF[facility] FIND RAD RADIOLOGY & OTH EXM ASSOCIATES [...] 07 08 7. 10 00 HO Ac IL 06 -1 -0 50 00 ME ti [...] 00 7- 0- 00 06 TO ve IL 51 20 20 07 WN IL 80 [...] 00 7- 6- 00 06 TO ve IL 51 20 20 07 WN IL 80 [...] 00 6- 1- 00 06 TO ve IL 51 20 20 07 WN IL 80 [...] 00 6- 0- 00 06 TO ve IL 51 20 20 07 WN IL 80 [...] 8- 8- 00 SI 11 HE ve IL 02 20 20 DE NS ED 20 [...] 3- 2- 00 SI 47 HE ve IL 75 20 20 DE NS IL 98 [...] 3- 1- 00 SI 47 HE ve IL 75 20 20 DE NS IL 98 [...] E TA 10 BL 05 ET 91 IL 68 06 06 0 15 3 WA [...] 09 11 11 E 9 PH DO IL AR N OP MA R CY 50 [...] 09 [address] [place] AR OR OP MA G CY 50 [...] 1- 1- 00 SI 44 HE ve IL 75 20 20 DE NS IL 96 [...] 1- 9- 00 SI 44 HE ve IL 75 20 20 DE NS IL 96 [...] 1- 0- 00 SI 44 HE ve IL 75 20 20 DE NS IL 96 [...] ti NO 23 SI 44 HE ve IL 75 20 20 DE NS IL 96 [...] 2- 3- 00 SI 51 ON ve IL 02 20 20 DE ED 20 [address] SO AR OR LO MA G NE CY 4 OF MG CY DO NT SE HI PK AN A LI 00 12 04 [address] Ac SI 17 -0 -[address] 37 EP ti NO 23 SI 44 HE ve IL 75 20 20 DE NS IL 96 [...] 2- 2- 00 SI 51 ON ve IL 02 20 20 DE ED 20 10 [...] 1- 1- 00 SI 44 HE ve IL 75 20 20 DE NS IL 96 [...] 1- 8 00 SI 44 HE ve IL 75 20 20 DE NS IL 96 [...] NO 23 4 SI 44 HE ve IL 75 20 20 DE NS IL 96 [...] 1- 7- 00 SI 44 HE ve IL 75 20 20 DE NS IL 96 [...] 3- 9- 00 SI 09 HE ve IL 75 20 20 DE NS IL 96 [...] 5- 4- 00 SI 66 HE ve IL 02 20 20 DE NS ED 20 [...] 00 10 15 ME 25 No Ac IL 06 -0 -1 .0 D 42 t [...] 6- 0- 00 SI 22 Av ve IL 02 20 20 DE ai ED 20 [...] 00 27 14 ME 25 No Ac IL 46 -0 -0 .0 D 42 t [...] 00 60 30 ME 25 No Ac IL 46 -0 -2 .0 D 42 t ti OX 20 6- 6- 00 CA 76 Av ve EN 19 20 20 RE 1 ai 00 08 08 la 50 5 PH bl 0 AR e MG MA CY TA BL LL ET C CI 00 02 03 00 10 15 ME 25 No Ac IL 06 -0 -2 .0 D 42 t [...] Procedure DOS Code Location Performer Comment COMPREHEN 37578 [facility] OF [facility] OF [address], [employer]. INC. PANEL NONEMERG A0120 FEDERATED FEDERATED TRNSPRT: 7 MINI-BUS TRANSPORT TRANSPORT MTN ATION SER ATION SER AREA/OTH SYS NONEMERG A0120 FEDERATED FEDERATED TRNSPRT: 7 MINI-BUS TRANSPORT TRANSPORT MTN ATION SER ATION SER AREA/[place] [address] LAB MAX [facility] FREE 7 YOGESH YOGESH THYROXINE HOLDINGS HOLDINGS DRUG 05880 [facility] SCREEN 7 YOGESH YOGESH QUANTITAT HOLDINGS HOLDINGS BROOK[place]NN OXCARBAZE PINE GENERAL 56758 [facility] HEALTH [address] [place] [address] PANEL HOLDINGS HOLDINGS LIPID 03216 Maxine HILLIARD PANEL 7 NANCY FIELDS PSC COLLECTIO 39698 Maxine HILLIARD N VENOUS 7 NANCY FIELDS BLOOD PSC VENIPUNCT URE OPHTH 60705 [facility] 7 XM&EVAL COMPRHNSV ESTAB PT 1/> NONEMERG A0120 FEDERATED FEDERATED TRNSPRT: 7 MINI-BUS TRANSPORT TRANSPORT MTN ATION SER ATION SER AREA/OTH SYS RADIOLOGI 55962 [place] [facility] 7 MEDICAL EXAMINATI IMAGING ON CHEST ASS SINGLE VIEW FRONTAL UNCLASSIF J3490 [facility] IED DRUGS 7 [facility] INC INC THER 12031 [facility] PROPH/DX 7 [facility] NJX IV INC INC PUSH SINGLE/1S T SBST/DRUG NONEMERG A0120 FEDERATED FEDERATED TRNSPRT: 7 [facility]I-BUS TRANSPORT TRANSPORT MTN ATION SER ATION SER AREA/OTH SYS NONEMERG A0120 FEDERATED FEDERATED TRNSPRT: 7 MINI-BUS TRANSPORT TRANSPORT MTN ATION SER ATION SER AREA/OTH SYS ECG 35087 [facility] ROUTINE 7 [facility] ECG INC INC W/LEAST 12 LDS TRCG ONLY W/O I&R COMPREHEN 40190 [facility] SIVE 7 [facility] METABOLIC INC INC PANEL COLLECTIO 88467 [facility] N VENOUS 7 [facility] BLOOD INC INC VENIPUNCT URE ECG 24528 [facility] GARCIA ROUTINE 7 [facility] W/LEAST P 12 LDS I&R ONLY THERAPEUT 67020 Maxine HILLIARD IC 6 NANCY FIELDS PROPHYLAC PSC TIC/DX INJECTION SUBQ/IM NONEMERG A0120 FEDERATED FEDERATED TRNSPRT: 6 MINI-BUS TRANSPORT TRANSPORT MTN ATION SER ATION SER AREA/OTH SYS UNCLASSIF J3490 [facility] IED DRUGS 6 [facility] INC INC HEPATOBIL 48828 [facility] SYST 6 [facility] IMAG INC INC INC GB W/PHARMA INTERVENJ NONEMERG A0120 FEDERATED FEDERATED TRNSPRT: 6 MINI-BUS TRANSPORT TRANSPORT MTN [place]ION [place]A/[place] [address] [facility] ABDOMINAL 6 [facility] REAL INC INC TIME W/IMAGE LIMITED RADEX 64029 CA[facility]O [facility] ESOPHAGUS 6 [facility] INC INC COMPREHEN 79450 [facility] SIVE 6 DIAGNOSTI DIAGNOSTI METABOLIC CS CS PANEL COLLECTIO 34492 A C KILPELA N VENOUS 6 NANCY FIELDS JEA BLOOD PSC VENIPUNCT URE NONEMERG A0120 FEDERATED FEDERATED TRNSPRT: 6 MINI-BUS TRANSPORT TRANSPORT MTN ATION SER ATION SER AREA/OTH SYS NONEMERG A0120 FEDERATED FEDERATED TRNSPRT: 6 MINI-BUS TRANSPORT TRANSPORT MTN ATION SER ATION [place] ARE[place] [address] [facility] FREE 6 [facility] [place] [address] [facility] THYROID 6 [facility] STIMULATI INC INC NG HORMONE TSH COMPREHEN 60765 [facility] MAX SIVE 6 [facility] METABOLIC HOLDINGS HOLDINGS PANEL COLLECTIO 01001 A C KILPELA N VENOUS 6 NANCY FIELDS JEA BLOOD PSC VENIPUNCT URE NONEMERG A0120 FEDERATED FEDERATED TRNSPRT: 6 MINI-BUS TRANSPORT TRANSPORT MTN ATION SER ATION SER AREA/OTH SYS NONEMERG A0120 FEDERATED FEDERATED TRNSPRT: 6 MINI-BUS TRANSPORT TRANSPORT MTN ATION SER ATION SER AREA/OTH SYS RADEX 61891 [facility] ESOPHAGUS 6 [place] [address] [facility] THYROID 6 [facility] STIMULAT[place] [address] [facility] FREE 6 [facility]OS[facility] THYROXINE INC INC COLLECTIO 94409 [facility] N VENOUS 6 [facility] BLOOD INC INC VENIPUNCT URE NONEMERG A0120 FEDERATED FEDERATED TRNSPRT: 6 MINI-BUS TRANSPORT TRANSPORT MTN ATION SER ATION SER AREA/OTH SYS NONEMERG A0120 FEDERATED FEDERATED TRNSPRT: 6 MINI-BUS TRANSPORT TRANSPORT MTN ATION SER ATION SER AREA/OTH SYS NONEMERG A0120 FEDERATED FEDERATED TRNSPRT: 6 [facility] TRANSPORT TRANSPORT MTN ATION SER ATION SER AREA/OTH SYS RADEX 26650 CAYETANO MONTEIRO RIBS UNI 6 [facility] W/POSTERO INC INC ANT CH MINIMUM 3 VIEWS NONEMERG A0120 FEDERATED FEDERATED TRNSPRT: 6 [facility] TRANSPORT TRANSPORT MTN ATION SER ATION SER AREA/[place] [address] [facility] [place] MAGNESIUM 6 [place] [address] [facility] MAX [facility] MAX FREE 6 Y[facility] [address] [facility] MAX THYROID 6 [facility] STIMULATI HOLDINGS HOLDINGS NG HORMONE TSH COMPREHEN 72472 [facility] SIVE 6 [facility] METABOLIC HOLDINGS HOLDINGS PANEL DRUG 13009 [facility] MAX SCREEN 6 [facility] QUANTITAT HOLDINGS HOLDINGS BROOKLYNN OXCARBAZE PINE THERAPEUT 01824 A C A C IC 6 NANCY [...] ATION SER ATION SER AREA/OTH SYS COMPUTER- 70087 CAYETANO MONTEIRO AIDED 6 [facility] DETECTION INC INC SCREENING MAMMOGRAP HY SCREENING [id number] CAYETANO MONTEIRO 6 [facility] MAMMOGRAP INC INC HY KEVIN INCL CAD WHEN PERFORMD NONEMERG A0120 FEDERATED FEDERATED TRNSPRT: 6 [facility]SPORT TRANSPORT MTN ATCRITICAL ACCESS HOSPITAL SER ATCRITICAL ACCESS HOSPITAL SER AREA/OTH SYS NONEMERG A0120 FEDERATED FEDERATED TRNSPRT: 6 [facility] TRANSPORT TRANSPORT MTN ATCRITICAL ACCESS HOSPITAL SER ATCRITICAL ACCESS HOSPITAL SER AREA/OTH SYS CYTP 44871 [facility] MAX CERV/VAG 6 YOGESH YOGESH AUTO THIN HOLDINGS HOLDINGS LAYER PREP MNL SCREEN NONEMERG A0120 FEDERATED FEDERATED TRNSPRT: 6 [facility] TRANSPORT TRANSPORT MTN ATCRITICAL ACCESS HOSPITAL SER ATCRITICAL ACCESS HOSPITAL SER AREA/[place] [address] [facility] MAX [facility] MAX THYROID 6 YOGESH YOGESH STIMULATI HOLDINGS HOLDINGS NG HORMONE TSH DRUG 38391 [facility] MAX SCREEN 6 YOGESH YOGESH QUANTITAT HOLDINGS HOLDINGS BROOKLYNN OXCARBAZE PINE BASIC 72909 LAB MAX LAB MAX METABOLIC 6 YOGESH YOGESH PANEL [place] [address] LAB [facility] MAX THYROXINE 6 YOGESH [place] [address] LAB MAX LAB MAX TRIIODOTH 6 YOGESH YOGESH YRONINE HOLDINGS HOLDINGS T3 TOTAL TT3 THYROID 88480 [facility] MAX HORM 6 YOGESH YOGESH UPTK/THYR HOLDINGS HOLDINGS OID HORMONE BINDING RATIO CHOLESTER 78265 A C CRUZ OL 6 NANCY OLSON SERUM/WHO PSC LE BLOOD TOTAL GLUCOSE 43729 A C NANCY QUANTITAT 6 NANCY OLSON BROOKLYNN BLOOD PSC XCPT REAGENT STRIP BLOOD 92115 A C CRUZ COUNT 6 NANCY OLSON COMPLETE PSC AUTO&AUTO DIFRNTL WBC LIPOPROTE 09201 A C NANCY IN DIR 6 NANCY OLSON TERESA HIGH PSC DENSITY CHOLESTER OL TRANSFERA 71915 A C NANCY SE 6 NANCY OLSON ASPARTATE PSC AMINO AST SGOT TRANSFERA 39304 A C NANCY SE 6 CRUZ MD WHITNEY [place] [address] Maxine CRUZ TRIGLYCER 6 NANCY FIELDS WHITNEY [...] SER ATION SER AREA/[place] [address] [facility] THYROID 5 DIAGNOSTI DIAGNOSTI STIMULATI CS CS NG HORMONE TSH BASIC 35462 [facility] METABOLIC 5 DIAGNOSTI DIAGNOSTI PANEL CS CS CALCIUM TOTAL BLOOD 57462 Maxine GOOD MARTY COUNT 5 NANCY FIELDS [...] ATION SER ATION SER AREA/OTH SYS RADIOLOGI 21745 [facility] 5 MEDICAL YAZ EXAMINATI IMAGING ON NECK ASS SOFT TISSUE NONEMERG A0120 [facility] TRNSPRT: 5 [facility] TRANSPORT TRANSPORT MTN ATION SER ATION SER AREA/OTH SYS NONEMERG A0120 [facility] TRNSPRT: 5 [facility] TRANSPORT TRANSPORT MTN ATION SER ATION SER AREA/OTH SYS NONEMERG A0120 [facility] FED[facility] TRNSPRT: 5 [facility] TRANSPORT TRANSPORT MTN ATION SER ATION SER AREA/[place] [address] [facility] THY[facility] 5 DIAGNOSTI DIAGNOSTI STIMULATI CS CS NG HORMONE TSH NONEMERG A0120 [facility]ERATED TRNSPRT: 5 [facility] TRANSPORT TRANSPORT MTN ATION SER ATION SER AREA/OTH SYS NONEMERG A0120 FEDERATED FEDERATED TRNSPRT: 5 [facility] TRANSPORT TRANSPORT MTN ATION SER ATION SER AREA/OTH SYS DEBRIDEME 33358 KARRIE YOON NT 5 KERI KERI MASTOIDEC JUANCHO CAVITY SIMPLE NONEMERG A0120 FEDERATED FEDERATED TRNSPRT: 5 MINI-BUS TRANSPORT TRANSPORT [facility] AREA/OTH SYS NONEMERG A0120 FEDERATED FEDERATED TRNSPRT: 5 MINI-BUS TRANSPORT TRANSPORT [facility] AREA/OTH SYS NONEMERG A0120 FEDERATED FEDERATED TRNSPRT: 4 TRANS MINI-BUS TRANSPORT [facility] [place] [address] [facility] THY[facility]ID 4 DIAGNOSTI DIAGNOSTI STIMULATI CS CS NG HORMONE TSH NONEMERG A0120 FEDERATED FEDERATED TRNSPRT: 4 TRANS MINI-BUS TRANSPORT [facility] AREA/OTH SYS LEVEL III 87655 [facility], PEDRITO SURG 4 [facility] SOLE PATHOLOGY GROSS&TANI ROSCOPIC EXAM DEBRIDEME 75855 KARRIE YOON NT 4 KERI KERI MASTOIDEC JUANCHO CAVITY CMPLX RMVL FB 27846 CA[facility] MONTEIRO XTRNL 4 [facility] AUDITORY INC INC CANAL ANES TYMPANOST 34946 CA[facility]ETANO MONTEIRO TAISHA 4 [facility] GENERAL INC INC ANESTHESI A INJECTION S0077 CA[facility] MONTEIRO 4 [facility] CLINDAMYC INC INC IN PHOSPHATE 300 MG BASIC 04762 CAYETANO MONTEIRO METABOLIC 4 [facility] PANEL INC INC CALCIUM TOTAL ECG 35244 CAYETANO BRONSON JR ROUTINE 4 [facility] W/LEAST P 12 LDS I&R ONLY ANESTHESI 07215 [facility] [place] [place] A 4 ANESTH SHE EXTERNAL OF THE MIDDLE & BLUE INNER EAR W/BX NOS BLOOD 43092 CAYETANO MONTEIRO COUNT 4 [facility] COMPLETE INC INC AUTO&AUTO DIFRNTL WBC NONEMERG A0120 FEDERATED FEDERATED TRNSPRT: 4 TRANS [facility]I-BUS TRANSPORT [facility] AREA/OTH SYS NONEMERG A0120 FEDERATED FEDERATED TRNSPRT: 4 TRANS [facility] TRANSPORT SERVBLUEG MTN ATION SER JUSTINE AREA/OTH SYS DEBRIDEME 87030 KARRIE YOON NT 4 KERI KERI MASTOIDEC JUANCHO CAVITY SIMPLE NONEMERG A0120 FEDERATED FEDERATED TRNSPRT: 4 TRANS [facility] TRANSPORT [facility] SER JUSTINE AREA/OTH SYS BLOOD 30450 FLORENTINO MARTY FLORENTINO MARTY COUNT 4 COMPLETE AUTO&AUTO DIFRNTL WBC COMPREHEN 87377 [facility] SIVE 4 DIAGNOSTI DIAGNOSTI METABOLIC CS CS PANEL NONEMERG A0120 FEDERATED FEDERATED TRNSPRT: 4 TRANS [facility] TRANSPORT [facility] SER JUSTINE AREA/OTH SYS DEBRIDEME 78622 KARRIE YOON NT 4 KERI KERI MASTOIDEC JUANCHO CAVITY SIMPLE NONEMERG A0120 FEDERATED FEDERATED TRNSPRT: 4 TRANS [facility] TRANSPORT [facility] DEN [facility] SER JUSTINE AREA/OTH SYS ECG 59945 FLORENTINO MARTY FLORENTINO MARTY ROUTINE 4 ECG W/LEAST 12 LDS W/I&R NONEMERG A0120 FEDERATED FEDERATED TRNSPRT: 4 TRANS [facility] TRANSPORT [facility] SER JUSTINE AREA/OTH SYS DEBRIDEME 07517 KARRIE YOON NT 4 KERI KERI MASTOIDEC JUANCHO CAVITY SIMPLE OPHTH 52847 [facility] 4 ANG ANG XM&EVAL COMPRHNSV ESTAB PT 1/> NONEMERG A0120 FEDERATED FEDERATED TRNSPRT: 4 TRANS [facility] TRANSPORT [facility] SER JUSTINE AREA/OTH SYS NONEMERG A0120 FEDERATED FEDERATED TRNSPRT: 4 [facility] TRANSPORT TRANSPORT [facility] SER [facility]ICAL [facility] SER AREA/OTH SYS NONEMERG A0120 FEDERATED FEDERATED TRNSPRT: 4 [facility] TRANSPORT TRANSPORT [facility] SER [facility]ICAL [facility] SER AREA/OTH SYS COMPUTER- 25138 CAYETANO MONTEIRO AIDED 4 [facility] DETECTION INC INC SCREENING MAMMOGRAP HY SCREENING G0202 CA[facility]ET[facility]O MONTEIRO 4 [facility] MAMMOGRAP INC INC HY [place] [address] [facility] 4 DIAGNOSTI DIAGNOSTI STIMULATI CS CS NG HORMONE TSH BLOOD 43031 FLORENTINO FIELDS MARTY COUNT 4 COMPLETE AUTO&AUTO [...] ATION SER ATION SER AREA/OTH SYS DEBRIDEME 79723 KARRIE YOON NT 3 KERI KERI MASTOIDEC JUANCHO CAVITY SIMPLE NONEMERG A0120 FEDERATED FEDERATED TRNSPRT: 3 [facility] TRANSPORT TRANSPORT MTN ATION SER ATION SER AREA/OTH SYS NONEMERG A0120 FEDERATED FEDERATED TRNSPRT: 3 [facility] TRANSPORT TRANSPORT MTN ATION SER ATION SER AREA/OTH SYS DEBRIDEME 86456 KARRIE YOON NT 3 KERI KREI MASTOIDEC JUANCHO CAVITY SIMPLE NONEMERG A0120 FEDERATED FEDERATED TRNSPRT: 3 [facility] TRANSPORT TRANSPORT MTN ATION SER ATION SER AREA/OTH SYS NONEMERG A0120 LKLP CAC LKLP CAC TRNSPRT: 3 INC INC MINI-BUS REGION 11 REGION 11 MTN AREA/OTH SYS LIPID 45077 Maxine GOOD MARTY PANEL 3 NANCY FIELDS PSC BASIC 31466 [facility] 3 DIAGNOSTI DIAGNOSTI PANEL CS CS CALCIUM TOTAL COLLECTIO 72405 Maxine GOOD MARTY N VENOUS 3 NANCY [place] [address] [facility] THY[facility]ID 3 DIAGNOSTI DIAGNOSTI STIMULATI CS NG HORMONE TSH GLUCOSE 71897 Maxine GOOD MARTY QUANTITAT 3 NANCY FIELDS BROOKLYNN BLOOD PSC XCPT REAGENT STRIP DIRECT G0154 [facility] SKILL [facility] AGENCY HH/HOSPIC E EA 15 MIN QUANTITAT 55769 CAYETANO MONTEIRO ION DRUG 3 [facility] NOT INC INC ELSEWHERE SPECIFIED DIRECT G0154 [facility] SKILL [facility] AGENCY AGENCY HH/HOSPIC E EA 15 MIN NONEMERG A0120 LKLP CAC LKLP CAC TRNSPRT: 3 INC INC MIN[facility]-BUS REGION 11 REGION 11 [facility] AREA/OT SYS GROUND A0425 [facility] MILEAGE 3 AMBULANCE AMBULANCE PER SERVICE SERVICE STATUTE MILE AMBULANCE A0429 [facility] SERVICE 3 AMBULANCE AMBULANCE BLS SERVICE [place] [address] CAYETANO MONTEIRO FREE 3 [facility] THYROXINE INC INC US SOFT 20911 CAYETANO MONTEIRO TISSUE 3 [facility] HEAD & INC [place] [address] CAYETANO MONTEIRO THYROID 3 [facility] STIMULATI INC INC NG HORMONE TSH URNLS DIP 95862 [facility] HANKS 3 DON DON STICK/TAB LET RGNT NON-AUTO W/O MICRSCP SCREENING G0202 [facility] 3 YAZ YAZ MAMMOGRAP HY KEVIN INCL CAD WHEN PERFORMD - 13968 [facility] AIDED 3 YAZ YAZ DETECTION [place] [address] CAYETANO MONTEIRO THYROID 3 [facility] STIMULATI INC INC NG HORMONE TSH COMPREHEN 22817 CAYETANO MONTEIRO SIVE 3 [facility] METABOLIC INC INC PANEL DRUG 38194 CAYETANO MONTEIRO SCREEN 3 [facility] QUANTITAT INC INC BROOKLYNN PHENYTOIN TOTAL LIPID 20859 CAYETANO AVERYON PANEL 3 [facility] INC INC NONEMERG A0120 LKLP LKLP TRNSPRT: 3 COMMUNITY COMMUNITY MINI-BUS ACTION ACTION MTN AREA/OTH SYS CYTP 55432 [facility] SLIDES 3 DIAGNOSTI DIAGNOSTI CERV/VAG [...] HH/HOSPIC E EA 15 MIN RADEX HIP 79439 [facility] 2 MEDICAL YAZ UNILATERA IMAGING L ASS COMPLETE MINIMUM 2 VIEWS RADIOLOGI 22907 [facility] 2 MEDICAL YAZ EXAMINATI IMAGING ON PELVIS ASS 1/[address] [facility] SERVICE 2 AMBULANCE AMBULANCE BLS SERVICE SERVICE EMERGENCY TRANSPORT GROUND A0425 [facility]UL[facility] PER SERVICE SERVICE STATUTE MILE RADIOLOGI 30336 [facility] 2 MEDICAL YAZ EXAMINATI IMAGING ON PELVIS ASS 1/2 VIEWS RADEX HIP 59337 CAYET[facility]O MONTEIRO 2 [facility] UNILATERA INC INC L COMPLETE MINIMUM 2 VIEWS RADEX 12570 [facility] HIPS 2 MEDICAL YAZ BILATERAL IMAGING 2 VIEWS ASS ANTEROPOS T PELVIS RADEX 40406 [facility] SPINE 2 MEDICAL YAZ LUMBOSACR IMAGING AL ASS MINIMUM 4 VIEWS NONEMERG A0120 LK LK TRNSPRT: 2 [facility] MINI-BUS ACTION ACTION MTN AREA/OTH SYS RADEX 70127 [facility] HAN[facility] SHOULDER 2 DON DON COMPLETE MINIMUM 2 VIEWS INCISION 17911 LATONYA HANKS THROMBOSE 2 DON DON D HEMORRHOI D EXTERNAL NONEMERG A0120 LK LK TRNSPRT: 2 [facility] MINI-BUS ACTION ACTION MTN AREA/OTH SYS COMPREHEN 67489 CAYETANO MONTEIRO SIVE 2 [facility]OS[facility] METABOLIC INC INC PANEL NONEMERG A0120 [facility] TRNSPRT: 2 [facility] MINI-BUS ACTION ACTION MTN AREA/OTH SYS DESTRUCTI 95604 [place]INS ON 2 DON DON PREMALIGN ANT LESION 1ST NONEMERG A0120 LK LK TRNSPRT: 2 [facility] MINI-BUS ACTION ACTION MTN AREA/OTH SYS NONEMERG A0120 [facility] TRNSPRT: 2 [facility] MINI-BUS ACTION ACTION MTN AREA/OTH SYS LIPID 50588 CAYETANO MONTEIRO PANEL 2 [facility] INC INC DRUG 42299 CAYETANO MONTEIRO SCREEN 2 [facility] QUANTITAT INC INC BROOK[place]NN PHENYTOIN TOTAL COMPREHEN 80091 CAYETANO MONTEIRO SIVE 2 [facility] [address] CAYETANO MONTEIRO THYROID 2 [facility] STIMULATI INC INC NG HORMONE TSH SCREENING G0202 [facility] 2 MEDICAL YAZ MAMMOGRAP IMAGING HY KEVIN ASS INCL CAD WHEN PERFORMD COMPUTER- 17116 [facility] AIDED 2 MEDICAL YAZ DETECTION IMAGING [...] HOME HLTH/HOSP ICE EA 15 MIN OPHTH 37325 [facility] 2 VISION ANG XM&EVAL COMPRHNSV ESTAB PT 1/> COMPREHEN 81985 CAYETANO MONTEIRO SIVE 1 [facility] [address] CAYETANO MONTEIRO THYROID 1 [facility] STIMULATI INC INC NG HORMONE TSH DRUG 53091 CAYETANO MONTEIRO SCREEN 1 [facility] QUANTITAT INC INC BROOKLYNN PHENYTOIN TOTAL LIPID 81276 CAYETANO MONTEIRO PANEL 1 [facility] INC INC BLOOD 78475 CAYETANO MONTEIRO COUNT 1 [facility] COMPLETE INC INC AUTO&AUTO DIFRNTL WBC QUANTITAT 25025 CAYETANO MONTEIRO ION DRUG 1 [facility] NOT INC INC ELSEWHERE SPECIFIED COMPREHEN 02379 CAYETANO MONTEIRO SIVE 1 [facility] METABOLIC INC INC PANEL SELF-CARE 89961 SUPPORT SUPPORT /HOME 1 SOURCE SOURCE MGMT TRAINING EACH 15 MINUTES SELF-CARE 34018 SUPPORT SUPPORT /HOME 1 SOURCE SOURCE MGMT TRAINING EACH 15 MINUTES SELF-CARE 48263 SUPPORT SUPPORT /HOME 1 SOURCE SOURCE MGMT TRAINING EACH 15 MINUTES SELF-CARE 97409 SUPPORT SUPPORT /HOME 1 SOURCE SOURCE MGMT TRAINING EACH 15 MINUTES SELF-CARE 91808 SUPPORT SUPPORT /HOME 1 SOURCE SOURCE MGMT TRAINING EACH 15 MINUTES SELF-CARE 00172 SUPPORT SUPPORT /HOME 1 SOURCE SOURCE MGMT TRAINING EACH 15 MINUTES SELF-CARE 62359 SUPPORT SUPPORT /HOME 1 SOURCE SOURCE MGMT TRAINING EACH 15 MINUTES SELF-CARE 89546 SUPPORT SUPPORT /HOME 1 SOURCE SOURCE MGMT TRAINING EACH 15 MINUTES SELF-CARE 39047 SUPPORT SUPPORT /HOME 1 SOURCE SOURCE MGMT TRAINING EACH 15 MINUTES SELF-CARE 62156 SUPPORT SUPPORT /HOME 1 SOURCE SOURCE MGMT TRAINING EACH 15 MINUTES SELF-CARE 15349 SUPPORT SUPPORT /HOME 1 SOURCE SOURCE MGMT TRAINING EACH 15 MINUTES QUANTITAT 08947 CAYETANO CAYETANO ION DRUG 1 [facility] NOT INC INC ELSEWHERE SPECIFIED BASIC 53575 CAYETANO AVERYON METABOLIC 1 [facility] PANEL INC INC CALCIUM TOTAL BLOOD 94982 CAYETANO CAYETANO COUNT 1 [facility] COMPLETE INC INC AUTO&AUTO DIFRNTL [facility] G0378 CAYETANO CAYETANO OBSERVATI 1 [facility] ON INC INC SERVICE PER HOUR OBSERVATI 35055 FAMILY MULBERRY ON CARE 1 CARE HARRY DISCHARGE ASSOCIATE S [facility] G0378 CAYETANO CAYETANO OBSERVATI 1 [facility] ON INC INC SERVICE PER HOUR AMB A0427 [facility] SERVICE 1 AMBULANCE AMBULANCE ALS SERVICE SERVICE EMERGENCY TRANSPORT LEVEL 1 [place] [address] CAYETANO MONTEIRO STREPTOCO 1 [facility] CCUS INC INC GROUP A INITIAL 24378 FAMILY MULBERRY OBSERVATI 1 CARE HARRY ON ASSOCIATE CARE/DAY S 50 MINUTES ALS A0398 EMELIA [place] ROUTINE 1 AMBULANCE AMBULANCE DISPOSABL SERVICE SERVICE E SUPPLIES BLOOD 59900 CAYETANO AVERYON COUNT 1 [facility] COMPLETE INC INC AUTO&AUTO DIFRNTL WBC URNLS DIP 10041 CAYET[facility]O AVERYON 1 [facility] STICK/TAB INC INC LET REAGENT AUTO MICROSCOP Y QUANTITAT 37549 CAYETANO MONTEIRO ION DRUG 1 [facility] [place] [address] CAYETANO MONTEIRO INFUSION 1 [facility] THERAPY/P INC INC ROPHYLAXI S /DX 1ST TO [address] [place] [address] CAYETANO MONTEIRO LIPASE 1 [place] [address] CAYETANO MONTEIRO AMYLASE 1 [facility] INC INC COMPREHEN 61596 CAYETANO MONTEIRO SIVE 1 [facility] [place] [address] CAYETANO MONTEIRO INFUSION 1 [facility] THERAPY INC INC PROPHYLAX IS/DX EA HOUR GROUND A0425 [facility] 1 AMBULANCE AMBULANCE [place] [address] CAYETANO MONTEIRO INFUSION 1 [facility] THERAPY INC INC PROPHYLAX IS/DX EA HOUR COMPREHEN 79324 CAYETANO MONTEIRO SIVE 1 [facility] METABOLIC INC INC PANEL CREATINE 49632 CAYETANO MONTEIRO KINASE MB 1 [facility] [place] [address] CAYETANO MONTEIRO AMYLASE 1 [facility] INC INC 3D 84444 [facility] STODDARDMEME RENDERING 1 MEDICAL YAZ W/INTERP IMAGING & [place] [address] CAYETANO MONTEIRO LIPASE 1 [facility] INC INC CREATINE 80756 CAYETANO MONTEIRO KINASE 1 [place] [address] CAYETANO MONTEIRO INFUSION 1 [facility] THERAPY/P INC INC ROPHYLAXI S /DX 1ST TO 1 [place] [address] CAYETANO MONTEIRO TROPONIN 1 [facility] QUANTITAT INC INC BROOKLYNN BLOOD 36487 CAYETANO MONTEIRO COUNT 1 [facility] COMPLETE INC INC AUTO&[place] [address] [facility] VAL[facility]INE HEAD/BRAI 1 MEDICAL YAZ N W/O IMAGING CONTRAST ASS MATERIAL RADIOLOGI 08738 [facility] STODD[facility] C 1 MEDICAL YAZ EXAMINATI IMAGING ON CHEST ASS SINGLE VIEW FRONTAL BLOOD 40317 CAYETANO MONTEIRO COUNT 1 [facility] COMPLETE INC INC AUTO&AUTO DIFRNTL WBC QUANTITAT 90740 CAYETANO MONTEIRO ION DRUG 1 [facility] NOT INC INC ELSEWHERE SPECIFIED COMPREHEN 47806 CAYETANO MONTEIRO SIVE 1 [facility] METABOLIC INC INC PANEL SELF-CARE 64900 SUPPORT SUPPORT /HOME 1 SOURCE SOURCE MGMT TRAINING EACH 15 MINUTES SELF-CARE 82568 SUPPORT SUPPORT /HOME 1 SOURCE SOURCE MGMT TRAINING EACH 15 MINUTES SELF-CARE 31813 SUPPORT SUPPORT /HOME 1 SOURCE SOURCE MGMT TRAINING EACH 15 MINUTES SELF-CARE 09898 SUPPORT SUPPORT /HOME 1 SOURCE SOURCE MGMT TRAINING EACH 15 [place] [address] CAYETANO MONTEIRO THYROID 1 [facility] STIMULATI INC INC NG HORMONE TSH COMPREHEN 53708 CAYET[facility]O MONTEIRO SIVE 1 [facility] METABOLIC INC INC PANEL BLOOD 67017 CAYETANO MONTEIRO COUNT 1 [facility] COMPLETE INC INC AUTO&AUTO DIFRNTL WBC LIPID 71543 CAYETANO MONTEIRO PANEL 1 [facility] INC INC DRUG 20847 CAYETANO AVERYON SCREEN 1 [facility] QUANTITAT INC INC BROOK[place]NN PHENYTOIN TOTAL SCREENING G0202 [facility] 1 MEDICAL YAZ MAMMOGRAP IMAGING HY KEVIN ASS INCL CAD WHEN PERFORMD COMPUTER- 84351 [facility] AIDED 1 MEDICAL YAZ DETECTION IMAGING ASS SCREENING MAMMOGRAP HY DEBRIDEME 53965 KARRIE YOON NT 1 KERI KERI MASTOIDEC JUANCHO CAVITY SIMPLE BLOOD 57374 CAYETANO MONTEIRO COUNT 1 [facility] COMPLETE INC INC AUTO&AUTO DIFRNTL WBC BASIC 47886 CAYETANO MONTEIRO METABOLIC 1 [facility] PANEL INC INC CALCIUM TOTAL DRUG 64919 CAYETANO AVERYON SCREEN 1 [facility] QUANTITAT INC INC BR[place]NN PHENYTOIN TOTAL GROUND A0425 [facility] 1 AMBULANCE AMBULANCE PER SERVICE SERVICE STATUTE MILE AMBULANCE A0429 [facility] SERVICE 1 AMBULANCE AMBULANCE BLS SERVICE SERVICE EMERGENCY TRANSPORT DRUG 63650 CAYETANO AVERYON SCREEN 1 [facility] QUANTITAT INC [place] [address] CAYETANO MONTEIRO THYROID 1 [facility] STIMULATI INC INC NG HORMONE TSH SELF-CARE 17720 SUPPORT SUPPORT /HOME 0 SOURCE SOURCE MGMT TRAINING EACH 15 MINUTES SELF-CARE 63694 SUPPORT SUPPORT /HOME 0 SOURCE SOURCE MGMT TRAINING EACH 15 MINUTES SELF-CARE 44053 SUPPORT SUPPORT /HOME 0 SOURCE SOURCE MGMT TRAINING EACH 15 MINUTES SELF-CARE 96929 SUPPORT SUPPORT /HOME 0 SOURCE SOURCE MGMT TRAINING EACH 15 MINUTES SELF-CARE 76898 SUPPORT SUPPORT /HOME 0 SOURCE SOURCE MGMT TRAINING EACH 15 MINUTES DEBRIDEME 84482 KARRIE YOON NT 0 KERI KERI MASTOIDEC JUANCHO CAVITY SIMPLE SELF-CARE 52724 SUPPORT SUPPORT /HOME 0 SOURCE SOURCE MGMT TRAINING EACH 15 MINUTES SELF-CARE 48702 SUPPORT SUPPORT /HOME 0 SOURCE SOURCE MGMT TRAINING EACH 15 MINUTES SELF-CARE 49749 SUPPORT SUPPORT /HOME 0 SOURCE SOURCE MGMT TRAINING EACH 15 MINUTES SELF-CARE 36448 SUPPORT SUPPORT /HOME 0 SOURCE SOURCE MGMT TRAINING EACH 15 MINUTES SELF-CARE 34045 SUPPORT SUPPORT /HOME 0 SOURCE SOURCE MGMT TRAINING EACH [address] [place] [address] [facility] E[facility]ON[facility] HEAD/BRAI 0 MEDICAL YAZ N W/O IMAGING CONTRAST ASS MATERIAL DRUG 71967 CAYETANO MONTEIRO SCREEN 0 [facility] QUANTITAT INC INC BROOK[place]NN PHENYTOIN TOTAL 3D 95439 CAYETANO MONTEIRO RENDERING 0 [facility] W/INTERP INC INC & POSTPROCE SS SUPERVISI ON BASIC 36399 CAYETANO MONTEIRO METABOLIC 0 [facility] PANEL INC INC CALCIUM TOTAL BLOOD 48804 CAYETANO MONTEIRO COUNT 0 [facility] COMPLETE INC INC AUTO&AUTO DIFRNTL WBC SELF-CARE 31793 SUPPORT SUPPORT /HOME 0 SOURCE SOURCE MGMT TRAINING EACH 15 MINUTES SELF-CARE 31989 SUPPORT SUPPORT /HOME 0 SOURCE SOURCE MGMT TRAINING EACH 15 MINUTES SELF-CARE 56895 SUPPORT SUPPORT /HOME 0 SOURCE SOURCE MGMT TRAINING EACH 15 MINUTES SELF-CARE 92422 SUPPORT SUPPORT /HOME 0 SOURCE SOURCE MGMT TRAINING EACH 15 MINUTES SELF-CARE 77401 SUPPORT SUPPORT /HOME 0 SOURCE SOURCE MGMT TRAINING EACH 15 MINUTES SELF-CARE 88422 SUPPORT SUPPORT /HOME 0 SOURCE SOURCE MGMT TRAINING EACH 15 MINUTES SELF-CARE 38780 SUPPORT SUPPORT /HOME 0 SOURCE SOURCE MGMT TRAINING EACH 15 MINUTES SELF-CARE 05207 SUPPORT SUPPORT /HOME 0 SOURCE SOURCE MGMT TRAINING EACH 15 MINUTES SELF-CARE 97423 SUPPORT SUPPORT /HOME 0 SOURCE SOURCE MGMT TRAINING EACH 15 MINUTES SELF-CARE 58734 SUPPORT SUPPORT /HOME 0 SOURCE SOURCE MGMT TRAINING EACH 15 MINUTES SELF-CARE 26054 SUPPORT SUPPORT /HOME 0 SOURCE SOURCE MGMT TRAINING EACH 15 MINUTES SELF-CARE 00204 SUPPORT SUPPORT /HOME 0 SOURCE SOURCE MGMT TRAINING EACH 15 MINUTES SELF-CARE 62973 SUPPORT SUPPORT /HOME 0 SOURCE SOURCE MGMT TRAINING EACH 15 MINUTES SELF-CARE 01975 SUPPORT SUPPORT /HOME 0 SOURCE SOURCE MGMT TRAINING EACH 15 MINUTES SELF-CARE 56424 SUPPORT SUPPORT /HOME 0 SOURCE SOURCE MGMT TRAINING EACH 15 MINUTES DEBRIDEME 82624 KARRIE YOON NT 0 KERI KERI MASTOIDEC JUANCHO CAVITY SIMPLE MICROSURG 47507 KARRIE YOON TQS REQ 0 KERI KERI USE OPERATING MICROSCOP E SELF-CARE 34096 SUPPORT SUPPORT /HOME 0 SOURCE SOURCE MGMT TRAINING EACH 15 MINUTES SELF-CARE 79359 SUPPORT SUPPORT /HOME 0 SOURCE SOURCE MGMT TRAINING EACH 15 MINUTES SELF-CARE 45223 SUPPORT SUPPORT /HOME 0 SOURCE SOURCE MGMT TRAINING EACH 15 MINUTES SELF-CARE 88639 SUPPORT SUPPORT /HOME 0 SOURCE SOURCE MGMT TRAINING EACH 15 MINUTES SELF-CARE 08432 SUPPORT SUPPORT /HOME 0 SOURCE SOURCE MGMT TRAINING EACH 15 MINUTES SELF-CARE 40927 SUPPORT SUPPORT /HOME 0 SOURCE SOURCE MGMT TRAINING EACH 15 MINUTES SELF-CARE 95401 SUPPORT SUPPORT /HOME 0 SOURCE SOURCE MGMT TRAINING EACH 15 MINUTES SELF-CARE 67789 SUPPORT SUPPORT /HOME 0 SOURCE SOURCE MGMT TRAINING EACH 15 MINUTES DRUG 04088 CAYETANO MONTEIRO SCREEN 0 [facility] [place] [id number] [facility] THYROID 0 [facility] STIMULATI INC INC NG HORMONE TSH SELF-CARE 70772 SUPPORT SUPPORT /HOME 0 SOURCE SOURCE MGMT TRAINING EACH 15 MINUTES SELF-CARE 36203 SUPPORT SUPPORT /HOME 0 SOURCE SOURCE MGMT TRAINING EACH 15 MINUTES SELF-CARE 21980 SUPPORT SUPPORT /HOME 0 SOURCE SOURCE MGMT TRAINING EACH 15 MINUTES SELF-CARE 89734 SUPPORT SUPPORT /HOME 0 SOURCE SOURCE MGMT TRAINING EACH 15 MINUTES SELF-CARE 31114 SUPPORT SUPPORT /HOME 0 SOURCE SOURCE MGMT TRAINING EACH 15 MINUTES SELF-CARE 38705 SUPPORT SUPPORT /HOME 0 SOURCE SOURCE MGMT TRAINING EACH 15 MINUTES SELF-CARE 98914 SUPPORT SUPPORT /HOME 0 SOURCE SOURCE MGMT TRAINING EACH 15 MINUTES SELF-CARE 91866 SUPPORT SUPPORT /HOME 0 SOURCE SOURCE MGMT TRAINING EACH 15 MINUTES SELF-CARE 31730 SUPPORT SUPPORT /HOME 0 SOURCE SOURCE MGMT TRAINING EACH 15 MINUTES SELF-CARE 34371 SUPPORT SUPPORT /HOME 0 SOURCE SOURCE MGMT TRAINING EACH 15 MINUTES SELF-CARE 50896 SUPPORT SUPPORT /HOME 0 SOURCE SOURCE MGMT TRAINING EACH 15 MINUTES SELF-CARE 20798 SUPPORT SUPPORT /HOME 0 SOURCE SOURCE MGMT TRAINING EACH 15 MINUTES SELF-CARE 70382 SUPPORT SUPPORT /HOME 0 SOURCE SOURCE MGMT TRAINING EACH 15 MINUTES SELF-CARE 92390 SUPPORT SUPPORT /HOME 0 SOURCE SOURCE MGMT TRAINING EACH 15 MINUTES SELF-CARE 27106 SUPPORT SUPPORT /HOME 0 SOURCE SOURCE MGMT TRAINING EACH 15 MINUTES SELF-CARE 86660 SUPPORT SUPPORT /HOME 0 SOURCE SOURCE MGMT TRAINING EACH 15 MINUTES SELF-CARE 25364 SUPPORT SUPPORT /HOME 0 SOURCE SOURCE MGMT TRAINING EACH [address] [facility] 0 AMBULANCE AMBULANCE BLS SERVICE SERVICE EMERGENCY TRANSPORT GROUND A[facility] PER SERVICE SERVICE STATUTE MILE DRUG 77712 [facility]CREEN 0 [facility] QUANTITAT INC INC BROOK[place]NN PHENYTOIN TOTAL SELF-CARE 84286 SUPPORT SUPPORT /HOME 0 SOURCE SOURCE MGMT TRAINING EACH 15 MINUTES SELF-CARE 19736 SUPPORT SUPPORT /HOME 0 SOURCE SOURCE MGMT TRAINING EACH 15 MINUTES SELF-CARE 96842 SUPPORT SUPPORT /HOME 0 SOURCE SOURCE MGMT TRAINING EACH 15 MINUTES SELF-CARE 30838 SUPPORT SUPPORT /HOME 0 SOURCE SOURCE MGMT TRAINING EACH 15 MINUTES SELF-CARE 67233 SUPPORT SUPPORT /HOME 0 SOURCE SOURCE MGMT TRAINING EACH 15 MINUTES SELF-CARE 21877 SUPPORT SUPPORT /HOME 0 SOURCE SOURCE MGMT TRAINING EACH 15 MINUTES SELF-CARE 74610 SUPPORT SUPPORT /HOME 0 SOURCE SOURCE MGMT TRAINING EACH 15 MINUTES SELF-CARE 90413 SUPPORT SUPPORT /HOME 0 SOURCE SOURCE MGMT TRAINING EACH 15 MINUTES SELF-CARE 27906 SUPPORT SUPPORT /HOME 0 SOURCE SOURCE MGMT TRAINING EACH 15 MINUTES SELF-CARE 18412 SUPPORT SUPPORT /HOME 0 SOURCE SOURCE MGMT TRAINING EACH 15 MINUTES SELF-CARE 92811 SUPPORT SUPPORT /HOME 0 SOURCE SOURCE MGMT TRAINING EACH 15 MINUTES SELF-CARE 18031 SUPPORT SUPPORT /HOME 0 SOURCE SOURCE MGMT TRAINING EACH 15 MINUTES SELF-CARE 98864 SUPPORT SUPPORT /HOME 0 SOURCE SOURCE MGMT TRAINING EACH 15 MINUTES SELF-CARE 07330 SUPPORT SUPPORT /HOME 0 SOURCE SOURCE MGMT TRAINING EACH 15 MINUTES SELF-CARE 22156 SUPPORT SUPPORT /HOME 0 SOURCE SOURCE MGMT TRAINING EACH 15 MINUTES SELF-CARE 24365 SUPPORT SUPPORT /HOME 0 SOURCE SOURCE MGMT TRAINING EACH 15 MINUTES SELF-CARE 40566 SUPPORT SUPPORT /HOME 0 SOURCE SOURCE MGMT TRAINING EACH 15 MINUTES SELF-CARE 03281 SUPPORT SUPPORT /HOME 0 SOURCE SOURCE MGMT TRAINING EACH 15 MINUTES SELF-CARE 50140 SUPPORT SUPPORT /HOME 0 SOURCE SOURCE MGMT TRAINING EACH 15 MINUTES SELF-CARE 84732 SUPPORT SUPPORT /HOME 0 SOURCE SOURCE MGMT TRAINING EACH 15 MINUTES SELF-CARE 83923 SUPPORT SUPPORT /HOME 0 SOURCE SOURCE MGMT TRAINING EACH 15 MINUTES SELF-CARE 54766 SUPPORT SUPPORT /HOME 0 SOURCE SOURCE MGMT TRAINING EACH 15 MINUTES SELF-CARE 39097 SUPPORT SUPPORT /HOME 0 SOURCE SOURCE MGMT TRAINING EACH 15 MINUTES SELF-CARE 51504 SUPPORT SUPPORT /HOME 0 SOURCE SOURCE MGMT TRAINING EACH 15 MINUTES SELF-CARE 43604 SUPPORT SUPPORT /HOME 0 SOURCE SOURCE MGMT TRAINING EACH 15 MINUTES SELF-CARE 15250 SUPPORT SUPPORT /HOME 0 SOURCE SOURCE MGMT TRAINING EACH 15 MINUTES SELF-CARE 83746 SUPPORT SUPPORT /HOME 0 SOURCE SOURCE MGMT TRAINING EACH 15 MINUTES SELF-CARE 86931 SUPPORT SUPPORT /HOME 0 SOURCE SOURCE MGMT TRAINING EACH 15 MINUTES SELF-CARE 99642 SUPPORT SUPPORT /HOME 0 SOURCE SOURCE MGMT TRAINING EACH 15 MINUTES SELF-CARE 55406 SUPPORT SUPPORT /HOME 0 SOURCE SOURCE MGMT TRAINING EACH 15 MINUTES SELF-CARE 85101 SUPPORT SUPPORT /HOME 0 SOURCE SOURCE MGMT TRAINING EACH 15 MINUTES SELF-CARE 37210 SUPPORT SUPPORT /HOME 0 SOURCE SOURCE MGMT TRAINING EACH 15 MINUTES SELF-CARE 65895 SUPPORT SUPPORT /HOME 0 SOURCE SOURCE MGMT TRAINING EACH 15 MINUTES SELF-CARE 55400 SUPPORT SUPPORT /HOME 0 SOURCE SOURCE MGMT TRAINING EACH 15 MINUTES SELF-CARE 03592 SUPPORT SUPPORT /HOME 0 SOURCE SOURCE MGMT TRAINING EACH 15 MINUTES SELF-CARE 00591 SUPPORT SUPPORT /HOME 0 SOURCE SOURCE MGMT TRAINING EACH 15 MINUTES SELF-CARE 20735 SUPPORT SUPPORT /HOME 0 SOURCE SOURCE MGMT TRAINING EACH 15 MINUTES SELF-CARE 68659 SUPPORT SUPPORT /HOME 0 SOURCE SOURCE MGMT TRAINING EACH 15 MINUTES SELF-CARE 90597 SUPPORT SUPPORT /HOME 0 SOURCE SOURCE MGMT TRAINING EACH 15 MINUTES DRUG 20540 CA[facility]EN [facility] QUANTITAT INC INC BROOKLYNN PHENYTOIN TOTAL BLOOD 85476 CAYETANO [facility]TEIRO COUNT 0 [facility] COMPLETE INC INC AUTO&[place] [address] CAYETANO MONTEIR[facility] THYROID 0 [facility] STIMULATI INC INC NG HORMONE TSH COMPREHEN 74076 CAYETANO MONTEIRO SIVE 0 [facility] METABOLIC INC INC PANEL SELF-CARE 60684 SUPPORT SUPPORT /HOME 0 SOURCE SOURCE MGMT TRAINING EACH 15 MINUTES SELF-CARE 75172 SUPPORT SUPPORT /HOME 0 SOURCE SOURCE MGMT TRAINING EACH 15 MINUTES SELF-CARE 89614 SUPPORT SUPPORT /HOME 0 SOURCE SOURCE MGMT TRAINING EACH 15 MINUTES DEBRIDEME 29091 KARRIE YOON, NT 0 KRISTI G KRISTI G MASTOIDEC JUANCHO CAVITY SIMPLE SELF-CARE 02008 SUPPORT SUPPORT /HOME 0 SOURCE SOURCE MGMT TRAINING EACH 15 MINUTES SELF-CARE 36275 SUPPORT SUPPORT /HOME 0 SOURCE SOURCE MGMT TRAINING EACH 15 MINUTES SELF-CARE 54073 SUPPORT SUPPORT /HOME 0 SOURCE SOURCE MGMT TRAINING EACH 15 MINUTES SELF-CARE 03237 SUPPORT SUPPORT /HOME 0 SOURCE SOURCE MGMT TRAINING EACH 15 MINUTES SELF-CARE 37544 SUPPORT SUPPORT /HOME 0 SOURCE SOURCE MGMT TRAINING EACH 15 MINUTES SELF-CARE 98139 SUPPORT SUPPORT /HOME 0 SOURCE SOURCE MGMT TRAINING EACH 15 MINUTES SELF-CARE 47477 SUPPORT SUPPORT /HOME 0 SOURCE SOURCE MGMT TRAINING EACH 15 MINUTES SELF-CARE 00706 SUPPORT SUPPORT /HOME 0 SOURCE SOURCE MGMT TRAINING EACH 15 MINUTES SELF-CARE 88653 SUPPORT SUPPORT /HOME 0 SOURCE SOURCE MGMT TRAINING EACH 15 MINUTES SELF-CARE 80916 SUPPORT SUPPORT /HOME 0 SOURCE SOURCE MGMT TRAINING EACH 15 MINUTES SELF-CARE 81889 SUPPORT SUPPORT /HOME 0 SOURCE SOURCE MGMT TRAINING EACH 15 MINUTES SELF-CARE 66635 SUPPORT SUPPORT /HOME 0 SOURCE SOURCE MGMT TRAINING EACH 15 MINUTES SELF-CARE 25389 SUPPORT SUPPORT /HOME 0 SOURCE SOURCE MGMT TRAINING EACH 15 MINUTES SELF-CARE 68446 SUPPORT SUPPORT /HOME 0 SOURCE SOURCE MGMT TRAINING EACH 15 MINUTES SELF-CARE 00459 SUPPORT SUPPORT /HOME 0 SOURCE SOURCE MGMT TRAINING EACH 15 MINUTES SELF-CARE 61475 SUPPORT SUPPORT /HOME 0 SOURCE SOURCE MGMT TRAINING EACH 15 MINUTES SELF-CARE 41838 SUPPORT SUPPORT /HOME 0 SOURCE SOURCE MGMT TRAINING EACH 15 MINUTES SELF-CARE 82689 SUPPORT SUPPORT /HOME 0 SOURCE SOURCE MGMT TRAINING EACH 15 MINUTES SELF-CARE 82893 SUPPORT SUPPORT /HOME 0 SOURCE SOURCE MGMT TRAINING EACH 15 MINUTES SELF-CARE 81373 SUPPORT SUPPORT /HOME 0 SOURCE SOURCE MGMT TRAINING EACH 15 MINUTES SELF-CARE 29835 SUPPORT SUPPORT /HOME 0 SOURCE SOURCE MGMT TRAINING EACH 15 MINUTES [facility] 10179 GERMAIN HOWARD, MEDICAL 0 VISION [place] A XM&EVAL COMPRHNSV ESTAB PT 1/> SELF-CARE 87292 SUPPORT SUPPORT /HOME 0 SOURCE SOURCE MGMT TRAINING EACH 15 MINUTES SELF-CARE 38598 SUPPORT SUPPORT /HOME 0 SOURCE SOURCE MGMT TRAINING EACH 15 MINUTES SELF-CARE 50647 SUPPORT SUPPORT /HOME 0 SOURCE SOURCE MGMT TRAINING EACH 15 MINUTES SELF-CARE 34003 SUPPORT SUPPORT /HOME 0 SOURCE SOURCE MGMT TRAINING EACH 15 MINUTES SELF-CARE 90882 SUPPORT SUPPORT /HOME 0 SOURCE SOURCE MGMT TRAINING EACH 15 MINUTES SELF-CARE 28086 SUPPORT SUPPORT /HOME 0 SOURCE SOURCE MGMT TRAINING EACH 15 MINUTES SELF-CARE 51179 SUPPORT SUPPORT /HOME 0 SOURCE SOURCE MGMT TRAINING EACH 15 MINUTES SELF-CARE 80415 SUPPORT SUPPORT /HOME 0 SOURCE SOURCE MGMT TRAINING EACH 15 MINUTES SELF-CARE 33699 SUPPORT SUPPORT /HOME 0 SOURCE SOURCE MGMT TRAINING EACH 15 MINUTES SELF-CARE 84805 SUPPORT SUPPORT /HOME 0 SOURCE SOURCE MGMT TRAINING EACH 15 MINUTES SELF-CARE 78310 SUPPORT SUPPORT /HOME 0 SOURCE SOURCE MGMT TRAINING EACH 15 MINUTES SELF-CARE 50499 SUPPORT SUPPORT /HOME 0 SOURCE SOURCE MGMT TRAINING EACH 15 MINUTES COMPRE 49701 KARRIE YOON, AUDIOMETR 0 KRISTI Akhtar Y THRESHOLD EVAL SP RECOGNIJ TYMPANOME 72020 KARRIE YOON, TRY 0 KRISTI G KRISTI Akhtar SELF-CARE 76486 SUPPORT SUPPORT /HOME 0 SOURCE SOURCE MGMT TRAINING EACH 15 MINUTES SELF-CARE 80758 SUPPORT SUPPORT /HOME 0 SOURCE SOURCE MGMT TRAINING EACH 15 MINUTES SELF-CARE 27423 SUPPORT SUPPORT /HOME 0 SOURCE SOURCE MGMT TRAINING EACH 15 MINUTES SELF-CARE 68355 SUPPORT SUPPORT /HOME 0 SOURCE SOURCE MGMT TRAINING EACH 15 MINUTES SELF-CARE 52113 SUPPORT SUPPORT /HOME 0 SOURCE SOURCE MGMT TRAINING EACH 15 MINUTES SELF-CARE 01476 SUPPORT SUPPORT /HOME 0 SOURCE SOURCE MGMT TRAINING EACH 15 MINUTES SELF-CARE 02397 SUPPORT SUPPORT /HOME 0 SOURCE SOURCE MGMT TRAINING EACH 15 [place] [address] CAYETANO MONTEIRO TH[facility]ROID 0 [facility] STIMULATI INC INC NG HORMONE TSH BLOOD 48821 CAYETANO MONTEIRO COUNT 0 [facility] COMPLETE INC INC AUTO&[place] [address] CAYETANO MONTEIRO FREE 0 [facility] THYROXINE INC INC SELF-CARE 90993 SUPPORT SUPPORT /HOME 0 SOURCE SOURCE MGMT TRAINING EACH 15 MINUTES SELF-CARE 39636 SUPPORT SUPPORT /HOME 0 SOURCE SOURCE MGMT TRAINING EACH 15 MINUTES SELF-CARE 47838 SUPPORT SUPPORT /HOME 0 SOURCE SOURCE MGMT TRAINING EACH 15 MINUTES SELF-CARE 16961 SUPPORT SUPPORT /HOME 0 SOURCE SOURCE MGMT TRAINING EACH 15 MINUTES SELF-CARE 98372 SUPPORT SUPPORT /HOME 0 SOURCE SOURCE MGMT TRAINING EACH 15 MINUTES SELF-CARE 81095 SUPPORT SUPPORT /HOME 0 SOURCE SOURCE MGMT TRAINING EACH 15 MINUTES SELF-CARE 58787 SUPPORT SUPPORT /HOME 0 SOURCE SOURCE MGMT TRAINING EACH 15 MINUTES SELF-CARE 89982 SUPPORT SUPPORT /HOME 0 SOURCE SOURCE MGMT TRAINING EACH 15 MINUTES SELF-CARE 37071 SUPPORT SUPPORT /HOME 0 SOURCE SOURCE MGMT TRAINING EACH 15 MINUTES 3D 46278 [place] [facility], RENDERING 0 MEDICAL STEPHANI IMAGING W/INTERP& ASSOCIATE POSTPROC S DIFF WORK STATION [place] ORBIT 09682 [place] [facility], SELLA/POS 0 MEDICAL STEPHANI T IMAGING FOSSA/EAR ASSOCIATE W/[place] [address] [place] [facility], MAXILLOFA 0 MEDICAL STEPHANI CIAL W/O IMAGING CONTRAST ASSOCIATE MATERIAL S SELF-CARE 12744 SUPPORT SUPPORT /HOME 0 SOURCE SOURCE MGMT TRAINING EACH 15 MINUTES SELF-CARE 27420 SUPPORT SUPPORT /HOME 0 SOURCE SOURCE MGMT TRAINING EACH 15 MINUTES SELF-CARE 68525 SUPPORT SUPPORT /HOME 0 SOURCE SOURCE MGMT TRAINING EACH 15 MINUTES SELF-CARE 81789 SUPPORT SUPPORT /HOME 0 SOURCE SOURCE MGMT TRAINING EACH 15 MINUTES SELF-CARE 01305 SUPPORT SUPPORT /HOME 0 SOURCE SOURCE MGMT TRAINING EACH 15 MINUTES SELF-CARE 69494 SUPPORT SUPPORT /HOME 0 SOURCE SOURCE MGMT TRAINING EACH 15 MINUTES SELF-CARE 02793 SUPPORT SUPPORT /HOME 0 SOURCE SOURCE MGMT TRAINING EACH 15 MINUTES SELF-CARE 66609 SUPPORT SUPPORT /HOME 0 SOURCE SOURCE MGMT TRAINING EACH 15 MINUTES SELF-CARE 70871 SUPPORT SUPPORT /HOME 0 SOURCE SOURCE MGMT TRAINING EACH 15 MINUTES SELF-CARE 45982 SUPPORT SUPPORT /HOME 0 SOURCE SOURCE MGMT TRAINING EACH 15 MINUTES SELF-CARE 65730 SUPPORT SUPPORT /HOME 0 SOURCE SOURCE MGMT TRAINING EACH 15 MINUTES SELF-CARE 78098 SUPPORT SUPPORT /HOME 0 SOURCE SOURCE MGMT TRAINING EACH 15 MINUTES SELF-CARE 56277 SUPPORT SUPPORT /HOME 0 SOURCE SOURCE MGMT TRAINING EACH 15 MINUTES SELF-CARE 24325 SUPPORT SUPPORT /HOME 0 SOURCE SOURCE MGMT TRAINING EACH 15 MINUTES SCREENING 36305 [place] [facility], 0 MEDICAL STEPHANI MAMMOGRAP IMAGING HY ASSOCIATE BILATERAL S COMPUTER- 72591 [place] [facility], AIDED 0 MEDICAL STEPHANI DETECTION IMAGING ASSOCIATE SCREENING S MAMMOGRAP HY BLOOD 24339 HANKS, HANKS, OCCULT 0 DON R DON R PEROXIDAS E ACTV QUAL FECES 1 DETER CYTP 50172 [facility] [place] [facility] CERV/VAG MNL SCRN PHYSICIAN SUPV SELF-CARE 01729 SUPPORT SUPPORT /HOME 0 SOURCE SOURCE MGMT TRAINING EACH 15 MINUTES SELF-CARE 95653 SUPPORT SUPPORT /HOME 0 SOURCE SOURCE MGMT TRAINING EACH 15 MINUTES SELF-CARE 34676 SUPPORT SUPPORT /HOME 0 SOURCE SOURCE MGMT TRAINING EACH 15 MINUTES SELF-CARE 40146 SUPPORT SUPPORT /HOME 0 SOURCE SOURCE MGMT TRAINING EACH 15 MINUTES SELF-CARE 14957 SUPPORT SUPPORT /HOME 0 SOURCE SOURCE MGMT TRAINING EACH 15 MINUTES SELF-CARE 22007 SUPPORT SUPPORT /HOME 0 SOURCE SOURCE MGMT TRAINING EACH 15 MINUTES SELF-CARE 44890 SUPPORT SUPPORT /HOME 0 SOURCE SOURCE MGMT TRAINING EACH 15 MINUTES SELF-CARE 33023 SUPPORT SUPPORT /HOME 0 SOURCE SOURCE MGMT TRAINING EACH 15 MINUTES SELF-CARE 21199 SUPPORT SUPPORT /HOME 0 SOURCE SOURCE MGMT TRAINING EACH 15 MINUTES SELF-CARE 56131 SUPPORT SUPPORT /HOME 0 SOURCE SOURCE MGMT TRAINING EACH 15 MINUTES SELF-CARE 18417 SUPPORT SUPPORT /HOME 0 SOURCE SOURCE MGMT TRAINING EACH 15 MINUTES SELF-CARE 70392 SUPPORT SUPPORT /HOME 0 SOURCE SOURCE MGMT TRAINING EACH 15 MINUTES SELF-CARE 72630 SUPPORT SUPPORT /HOME 0 SOURCE SOURCE MGMT TRAINING EACH 15 MINUTES SELF-CARE 38834 SUPPORT SUPPORT /HOME 0 SOURCE SOURCE MGMT TRAINING EACH 15 MINUTES SELF-CARE 36616 SUPPORT SUPPORT /HOME 0 SOURCE SOURCE MGMT TRAINING EACH 15 MINUTES SELF-CARE 55840 SUPPORT SUPPORT /HOME 0 SOURCE SOURCE MGMT TRAINING EACH 15 MINUTES SELF-CARE 39299 SUPPORT SUPPORT /HOME 0 SOURCE SOURCE MGMT TRAINING EACH 15 MINUTES SELF-CARE 69716 SUPPORT SUPPORT /HOME 0 SOURCE SOURCE MGMT TRAINING EACH 15 MINUTES CONTINUOU E0601 DEBORAH CABRERA S 0 HOME MED HOME MED POSITIVE EQUIP. EQUIP. [facility]WAY [facility] PRESSURE DEVICE SELF-CARE 64228 SUPPORT SUPPORT /HOME 0 SOURCE SOURCE MGMT TRAINING EACH 15 MINUTES SELF-CARE 98865 SUPPORT SUPPORT /HOME 0 SOURCE SOURCE MGMT TRAINING EACH 15 [place] [address] CAYETANO MONTEIRO TH[facility]ROID 0 [facility] STIMULATI INC INC NG HORMONE TSH DRUG 33823 CAYETANO MONTEIRO SCREEN 0 [facility] QUANTITAT INC INC BROOKLYNN PHENYTOIN TOTAL DRUG 50309 CAYETANO AVERYON SCREEN 0 [facility] QUANTITAT INC INC BROOKLYNN PHENYTOIN TOTAL URNLS DIP 27680 CAYETANO MONTEIRO 0 [facility] STICK/TAB INC INC LET REAGENT AUTO MICROSCOP Y BLOOD 49407 CAYETANO MONTEIRO COUNT 0 [facility] COMPLETE INC INC AUTO&AUTO DIFRNTL WBC BASIC 61391 CAYETANO MONTEIRO METABOLIC 0 [facility] PANEL INC INC CALCIUM TOTAL SUSCEPTIB 24711 CAYETANO MONTEIRO LTY STDY 0 [facility] ANTIMICRB INC INC IAL MICRO/AGA R DILUTJ AMB A0422 EMELIA [facility] OXYGEN&O2 0 AMBULANCE AMBULANCE SUPPLIES SERVICE SERVICE LIFE SUSTAININ G SITUATION GROUND A0425 EMELIA [facility] MILEAGE 0 AMBULANCE AMBULANCE PER SERVICE SERVICE STATUTE MILE CULTURE 39398 CAYETANO MONTEIRO BACTERIAL 0 [facility] INC INC QUANTTATI VE COLONY COUNT URINE CULTURE 49126 CAYETANO MONTEIRO BCT 0 [facility] ISOL&PRSM INC INC PTV ID ISOLATE EA URINE AMB [id number] EMELIA [facility] SERVICE 0 AMBULANCE AMBULANCE ALS SERVICE SERVICE EMERGENCY TRANSPORT LEVEL 1 MANUAL 01123 CAYETANO MONTEIRO THERAPY 0 [facility] TQS 1/> INC INC REGIONS EACH 15 MINUTES THERAPEUT 06135 CAYETANO MONTEIRO IC PX 1/> 0 [facility] AREAS INC INC EACH 15 MIN EXERCISES THERAPEUT 37491 CAYETANO MONTEIRO IC PX 1/> 0 [facility] AREAS INC INC EACH 15 MIN EXERCISES APPLICATI 53088 CAYETANO MONTEIRO ON 0 [facility] MODALITY INC INC 1/> AREAS HOT/COLD PACKS MANUAL 07520 CAYETANO MONTEIRO THERAPY 0 [facility] TQS 1/> INC INC REGIONS EACH 15 MINUTES APPLICATI 82541 CAYETANO MONTEIRO ON 0 [facility] MODALITY INC INC 1/> AREAS HOT/COLD PACKS MANUAL 76857 CAYETANO MONTEIRO THERAPY 0 [facility] TQS 1/> INC INC REGIONS EACH 15 MINUTES THERAPEUT 41612 CAYETANO MONTEIRO IC PX 1/> 0 [facility] AREAS INC INC EACH 15 MIN EXERCISES THERAPEUT 35287 CAYETANO MONTEIRO IC PX 1/> 0 [facility] AREAS INC INC EACH 15 MIN EXERCISES APPLICATI 87616 CAYETANO MONTEIRO ON 0 [facility] MODALITY INC INC 1/> AREAS HOT/COLD PACKS MANUAL 65186 CAYETANO MONTEIRO THERAPY 0 [facility] TQS 1/> INC INC REGIONS EACH 15 MINUTES MANUAL 23758 CAYETANO MONTEIRO THERAPY 0 [facility] TQS 1/> INC INC REGIONS EACH 15 MINUTES APPLICATI 69187 CAYETANO MONTEIRO ON 0 [facility] MODALITY INC INC 1/> AREAS HOT/COLD PACKS THERAPEUT 26316 CAYETANO MONTEIRO IC PX 1/> 0 [facility] AREAS INC INC EACH 15 MIN EXERCISES NASL A7034 DEBORAH CABRERA INTRFCE 0 HOME MED HOME MED POS ARWAY EQUIP. EQUIP. PRSS [facility] DEVC W/WO HEAD STRAP HEADGEAR A7035 DEBORAH CABRERA USED 0 HOME MED HOME MED W/POSITIV EQUIP. EQUIP. E [employer]AY [facility] PRESSURE DEVICE CONTINUOU E0601 DEBORAH CHEUNGRELL S 0 HOME MED HOME MED POSITIVE EQUIP. EQUIP. [employer]WAY [facility] PRESSURE DEVICE FILTER A7038 DEBORAH CHEUNGRELL DISPBL 0 HOME MED HOME MED USED EQUIP. EQUIP. W/POS [facility] ARWAY PRESSURE DEVICE FILTER A7039 DEBORAH CHEUNGRELL NON 0 HOME MED HOME MED DISPBL EQUIP. EQUIP. USED [facility] W/POS ARWAY PRESS DEVICE TUBING A7037 DEBORAH CHEUNGRELL USED WITH 0 HOME MED HOME MED POSITIVE EQUIP. EQUIP. [facility]WAY [facility] PRESSURE DEVICE THERAPEUT 19613 CAYETANO MONTEIRO IC PX 1/> 0 [facility] AREAS INC INC EACH 15 MIN EXERCISES APPLICATI 63759 CAYETANO MONTEIRO ON 0 [facility] MODALITY INC INC 1/> AREAS HOT/COLD PACKS MANUAL 56950 CAYETANO CAYETANO THERAPY 0 [facility] TQS 1/> INC INC REGIONS EACH 15 MINUTES MANUAL 65124 CAYETANO MONTEIRO THERAPY 0 [facility] TQS 1/> INC INC REGIONS EACH 15 MINUTES RADEX 32401 CARLOS CEJA, WRIST 2 0 [facility] IMAGING ASSOCIATE S APPLICATI 07062 CAYETANO CAYETANO ON 0 [facility] MODALITY INC INC 1/> AREAS HOT/COLD PACKS THERAPEUT 93125 CAYETANO CAYETANO IC PX 1/> 0 [facility] AREAS INC INC EACH 15 MIN EXERCISES MEDICAL 94085 CAYETANO MONTEIRO NUTRITION 0 [facility] ASSMT&IVN TJ INDIV EACH 15 SD APPL 04032 CAYETANO MONTEIRO MODALITY 0 [facility] 1/> AREAS INC INC ELEC STIMJ UNATTENDE D THERAPEUT 37014 CAYETANO MONTEIRO IC PX 1/> 0 [facility] AREAS INC INC EACH 15 MIN EXERCISES APPLICATI 97478 CAYETANO MONTEIRO ON 0 [facility] MODALITY INC INC 1/> AREAS HOT/COLD PACKS MANUAL 02875 CAYETANO MONTEIRO THERAPY 0 [facility] TQS 1/> INC INC REGIONS EACH 15 MINUTES MANUAL 35404 CAYETANO MONTEIRO THERAPY 0 [facility] TQS 1/> INC INC REGIONS EACH 15 MINUTES PHYSICAL 83376 CAYETANO MONTEIRO THERAPY 0 [facility] RE-EVALUA INC INC TION APPLICATI 38494 CAYETANO MONTEIRO ON 0 [facility] MODALITY INC INC 1/> AREAS HOT/COLD PACKS THERAPEUT 52480 CAYETANO MONTEIRO IC PX 1/> 0 [facility] AREAS INC INC EACH 15 MIN EXERCISES APPL 32261 CAYETANO MONTEIRO MODALITY 0 [facility] 1/> AREAS INC INC PARAFFIN BATH APPL 66548 CAYETANO MONTEIRO MODALITY 0 [facility] 1/> AREAS INC INC PARAFFIN BATH THERAPEUT 50406 CAYETANO MONTEIRO IC PX 1/> 0 [facility] AREAS INC INC EACH 15 MIN EXERCISES MANUAL 96394 CAYETANO MONTEIRO THERAPY 0 [facility] TQS 1/> INC INC REGIONS EACH 15 MINUTES MANUAL 20460 CAYETANO MONTEIRO THERAPY 9 [facility] TQS 1/> INC INC REGIONS EACH 15 MINUTES APPLICATI 80074 CAYETANO MONTEIRO ON 9 [facility] MODALITY INC INC 1/> AREAS HOT/COLD PACKS APPL 73550 CAYETANO MONTEIRO MODALITY 9 [facility] 1/> AREAS INC INC ELEC STIMJ UNATTENDE D APPL 33804 CAYETANO MONTEIRO MODALITY 9 [facility] 1/> AREAS INC INC PARAFFIN BATH THERAPEUT 87036 CAYETANO MONTEIRO IC PX 1/> 9 [facility] AREAS INC INC EACH 15 MIN EXERCISES THERAPEUT 52264 CAYETANO MONTEIRO IC PX 1/> 9 [facility] AREAS INC INC EACH 15 MIN EXERCISES APPL 56864 CAYETANO MONTEIRO MODALITY 9 [facility] 1/> AREAS INC INC ELEC STIMJ UNATTENDE D APPLICATI 75523 CAYETANO AVERYON ON 9 [facility] MODALITY INC INC 1/> AREAS HOT/COLD PACKS MANUAL 44691 CAYETANOANALILIA MONTEIRO THERAPY 9 [facility] TQS 1/> INC INC REGIONS EACH 15 MINUTES POLYSOM 50493 CAYETANO MONTEIRO 6/>YRS 9 [facility] SLEEP 4/> INC INC ADDL SHAUN ATTND THERAPEUT 07008 CAYETANO MONTEIRO IC PX 1/> 9 [facility] AREAS INC INC EACH 15 MIN EXERCISES MANUAL 41647 CAYETAONANALILIA MONTEIRO THERAPY 9 [facility] TQS 1/> INC INC REGIONS EACH 15 MINUTES APPLICATI 44736 CAYETANO MONTEIRO ON 9 [facility] MODALITY INC INC 1/> AREAS HOT/COLD PACKS APPL 34201 CAYETANO MONTEIRO MODALITY 9 [facility] 1/> AREAS INC INC ELEC STIMJ UNATTENDE D APPL 53625 CAYETANO MONTEIRO MODALITY 9 [facility] 1/> AREAS INC INC ELEC STIMJ UNATTENDE D APPL 76026 CAYETANOANALILIA MONTEIRO MODALITY 9 [facility] 1/> AREAS INC INC VASOPNEUM ATIC DEVICES PHYSICAL 11090 CAYETANO MONTEIRO THERAPY 9 [facility] EVALUATIO INC INC N THERAPEUT 38713 CAYETANO MONTEIRO IC PX 1/> 9 [facility] AREAS INC INC EACH 15 MIN EXERCISES DEBRIDEME 42545 KARRIE YOON, NT 9 KRISTI Akhtar MASTOIDEC JUANCHO CAVITY SIMPLE BINOCULAR 54569 KARRIE YOON, 9 KRISTI G KRISTI G MICROSCOP Y SEPARATE DX PROCEDURE WRIST L3908 TRACY TRACY HAND 9 YOAV CASON MD ORTHOSIS PSC PSC EXT CONTROL COCK-UP PREFAB RADEX 97278 CAYETANO MONTEIRO WRIST 2 9 [facility] VIEWS INC INC COMPREHEN 83172 COMBINED COMBINED SIVE 9 PHYSICIAN PHYSICIAN METABOLIC S LAB S LAB PANEL BLOOD 76585 COMBINED COMBINED COUNT 9 PHYSICIAN PHYSICIAN COMPLETE S LAB S LAB AUTO&AUTO DIFRNTL WBC LIPID 80266 COMBINED COMBINED PANEL 9 PHYSICIAN PHYSICIAN S LAB S LAB DRUG 26658 COMBINED COMBINED SCREEN 9 PHYSICIAN PHYSICIAN QUANTITAT S LAB S LAB BROOKLYNN PHENYTOIN TOTAL LIPID 04933 COMBINED COMBINED PANEL 9 PHYSICIAN [place] [address] COMBINED COMBINED THYROID 9 PHYSICIAN PHYSICIAN STIMULATI S LAB S LAB NG HORMONE TSH RADEX 91795 CAYETANO MONTEIRO WRIST 2 9 [facility] VIEWS INC INC RADEX 83787 HANKS, HANKS, ANKLE 9 DON R DON R COMPLETE MINIMUM 3 VIEWS RADEX 47397 [place] BRENNA, WRIST 2 9 MEDICAL ZHAO P VIEWS IMAGING ASSOCIATE S APPLICATI 93164 BOWEN WISEMAN, ON CAST 9 TRACY TRACY ELBOW FINGER SHORT ARM RADEX 68060 [place] BRENNA, WRIST 2 9 MEDICAL ZHAO P VIEWS IMAGING ASSOCIATE S RADEX 39861 CAYETANO MONTEIRO WRIST 2 9 [facility] VIEWS INC INC ANES 47225 [facility], RADIUS 9 ANESTH MELLISA L ULNA OF THE WRIST/[place] [address] CAYETANO MONTEIRO INFUSION 9 [facility] THERAPY INC INC PROPHYLAX IS/DX EA HOUR BLOOD 74661 CAYETANO MONTEIRO COUNT 9 [facility] COMPLETE INC INC AUTO&[place] [address] CAYETANO CAYETANO INFUSION 9 [facility] THERAPY/P INC INC ROPHYLAXI S /DX 1ST TO 1 HR CLTX DSTL 06932 BOWEN WISEMAN, RDL 9 TRACY TRACY FX/EPIPHY SL SEP W/MANJ WHEN PERF CLOS RDUC 7902 CAYETANO MONTEIRO FRACTURE 9 [facility] INC INC RADIUS&UL NA WITHOUT INTRL FIX RADEX 39318 [facility], HAND 9 MEDICAL STEPHANI MINIMUM 3 IMAGING VIEWS ASSOCIATE S DRUG 85576 COMBINED COMBINED SCREEN 9 PHYSICIAN PHYSICIAN QUANTITAT S LAB S LAB [place] [address] COMBINED COMBINED THYROID 9 PHYSICIAN PHYSICIAN STIMULATI S [place] [address] CAYETANO MONTEIRO THYROID 9 [facility] STIMULATI INC INC NG HORMONE TSH COMPREHEN 47030 CAYETANO MONTEIRO SIVE 9 [facility] METABOLIC INC INC PANEL ECG 68368 CAYETAON MONTEIRO ROUTINE 9 [facility] ECG INC INC W/LEAST 12 LDS TRCG ONLY W/O I&R DRUG 81687 CYAETANO CAYETANO SCREEN 9 [facility] QUANTITAT INC INC BROOKLYNN PHENYTOIN TOTAL BLOOD 63934 CAYETANO MONTEIRO COUNT 9 [facility] COMPLETE INC INC AUTO&AUTO DIFRNTL WBC 3D 18423 CARLOS BRENNA, RENDERING 9 MEDICAL ZHAO P W/INTERP IMAGING & ASSOCIATE POSTPROCE S SS SUPERVISI ON RHYTHM 55021 CAYETANO CAYETANO ECG 1-3 9 [facility] LEADS INC INC TRACING ONLY W/O I&R ECG 08074 CAYETANO MALAVEMILeticia ROUTINE 9 [facility] W/LEAST PROF SERV 12 LDS I&[place] [address] CAYETANO MONTEIRO HEAD/BRAI 9 [facility] W/O INC INC CONTRAST MATERIAL GROUND A0425 [facility] PER SERVICE SERVICE STATUTE MILE AMBULANCE A0429 [facility] SERV[facility] 9 AMBULANCE AMBULANCE BLS SERVICE SERVICE EMERGENCY TRANSPORT OPHTH 78936 [facility] MAG[facility] 9 VISION SG M XM&EVAL COMPRHNSV ESTAB PT 1/> [place] [address] COMBINED COMBINED THYROID 9 PHYSICIAN PHYSICIAN STIMULATI S LAB S LAB NG HORMONE TSH GLUCOSE 07187 COMBINED COMBINED TOLERANCE 9 PHYSICIAN PHYSICIAN TEST GTT S LAB S LAB 3 SPECIMENS DRUG 29086 COMBINED COMBINED SCREEN 9 PHYSICIAN PHYSICIAN QUANTITAT S LAB S LAB BROOK[place] PHENYTOIN TOTAL LIPID 44555 COMBINED COMBINED PANEL 9 PHYSICIAN PHYSICIAN S LAB S LAB DRUG 23362 COMBINED COMBINED SCREEN 9 PHYSICIAN PHYSICIAN QUANTITAT S LAB S [place] [address] COMBINED COMBINED THYROID 9 PHYSICIAN PHYSICIAN STIMULATI S [place] [address] COMBINED COMBINED THYROID 8 PHYSICIAN PHYSICIAN STIMULATI S LAB S LAB NG HORMONE TSH DEBRIDEME 41065 KARRIE YOON, NT 8 KRISTI Akhtar MASTOIDEC JUANCHO CAVITY SIMPLE DRUG 72251 COMBINED COMBINED SCREEN 8 PHYSICIAN PHYSICIAN QUANTITAT S LAB S LAB [place] PHENYTOIN TOTAL MICROSURG 92443 KARRIE YOON, TQS REQ 8 KRISTI Akhtar USE OPERATING MICROSCOP E MICROSURG 63291 KARRIE YOON, TQS REQ 8 KRISTI Akhtar USE OPERATING MICROSCOP E DEBRIDEME 92256 KARRIE YOON, NT 8 KRISTI Akhtar MASTOIDEC JUANCHO CAVITY SIMPLE GENERAL 54155 COMBINED COMBINED HEALTH 8 PHYSICIAN PHYSICIAN PANEL S LAB S LAB DRUG 48821 COMBINED COMBINED SCREEN 8 PHYSICIAN PHYSICIAN QUANTITAT S LAB S LAB [place] PHENYTOIN TOTAL COMPUTER- 23781 [place] [facility] AIDED 8 MEDICAL STEPHANI DETECTION IMAGING ASSOCIATE SCREENING S MAMMOGRAP HY SCREENING 79080 [place] [facility] 8 MEDICAL STEPHANI MAMMOGRAP IMAGING HY ASSOCIATE BILATERAL S DUP-SCAN 28001 [place] [facility] XTR VEINS 8 MEDICAL STEPHANI IMAGING UNILATERA ASSOCIATE L/LIMITED S STUDY DUPLEX 29048 [place] VIRGILIO CEJA 8 MEDICAL ZHAO P EXTRACRAN IMAGING IAL ART ASSOCIATE COMPL BI S STUDY COMPREHEN 23835 CAYETANO MONTEIRO SIVE 8 [facility] [place] [address] CAYETANO MONTEIRO THYROID 8 [facility] STIMULATI INC INC NG HORMONE TSH DRUG 45313 CAYETANO MONTEIRO SCREEN 8 [facility] QUANTITAT INC INC [place] PHENYTOIN TOTAL LIPID 74031 CAYETANO MONTEIRO PANEL 8 [facility] INC INC BLOOD 30383 CAYETANO MONTEIRO COUNT 8 [facility] COMPLETE INC INC AUTO&AUTO DIFRNTL WBC RADIOLOGI 22449 [facility] HANKS C EXAM 8 DON R DON R PELVIS COMPL MINIMUM 3 VIEWS RADIOLOGI 40165 [facility] HANKS C EXAM 8 DON R DON R PELVIS COMPL MINIMUM 3 VIEWS COMMODE E0163 DEBORAH CABRERA CHAIR 8 HOME MED HOME MED MOBILE OR EQUIP. EQUIP. [facility]FIXED ARMS DRUG 61247 [facility] SCREEN 8 MED LAB MED LAB QUANTITAT [place] PHENYTOIN TOTAL SBSQ 16375 LATONYA HANKS, NURSING 8 DON R DON R FACILITY CARE/DAY E/M STABLE 10 MIN DRUG 88626 [facility] SCREEN 8 MED LAB MED LAB [place] [address] [facility] 1/> AREAS 8 HEALTHCAR HEALTHCAR EA 15 E E MIN GAIT TRAINJ W/STAIR THERAPEUT 77917 [facility] ACTVITY 8 [facility]ALTHCAR HEALTHCAR DIRECT PT E E CONTACT EACH 15 MIN PHYSICAL 24749 [facility] THERAPY 8 HEALTHCAR HEALTHCAR EVALUATIO E E N THERAPEUT 26902 AMY [facility] IC PX /> 8 HEALTHCAR HEALTHCAR AREAS E E [place] [address] [facility] /> AREAS 8 HEALTHCAR HEALTHCAR EACH [address] [facility] [address]1579 LATONYA HANKS, DISCHARGE 8 DON R DON R DAY MANAGEMEN T 30 MIN/< GR[facility] [id number] [facility] AM[facility]ULANCE PER SERVICE SERVICE STATUTE MILE SELF-CARE 74590 AMY DIAZT /HOME 8 HEALTHCAR HEALTHCAR MGMT E E TRAINING EACH 15 MINUTES OCCUPATIO 99653 [facility] 8 HEALTHCAR HEALTHCAR THERAPY E E EVALUATIO N SBSQ 54209 [place] [address] DON R DON R CARE/DAY 25 MINUTES SBSQ 51034 [place] [address] DON R DON R CARE/DAY 25 MINUTES SBSQ 85163 [place] [address] DON R DON R CARE/DAY 25 MINUTES RADEX 77026 [facility], SPINE 8 MEDICAL ZHAO P LUMBOSACR IMAGING AL ASSOCIATE MINIMUM 4 S VIEWS RADEX 92757 [facility] 8 MEDICAL ZHAO P COCCYX IMAGING MINIMUM 2 ASSOCIATE VIEWS S INITIAL 35539 [place] [address] DON R DON R CARE/DAY [address] LOWER [address] [place] [facility], EXTREMITY 8 MEDICAL ZHAO P W/O IMAGING CONTRAST ASSOCIATE MATERIAL S RADEX HIP 29993 [facility], MEDICAL ZHAO P UNILATERA IMAGING L ASSOCIATE COMPLETE S MINIMUM 2 VIEWS RADIOLOGI 33899 [place] [facility] 8 MEDICAL ZHAO P EXAMINATI IMAGING ON PELVIS ASSOCIATE 1/2 S VIEWS 3D 42882 [facility] Z[facility] P IMAGING W/INTERP& ASSOCIATE POSTPROC S DIFF WORK STATION RADIOLOGI 80448 DEFERIET ROBERTO 8 CALISTA S EXAMINATI RADIOLOGY ON PELVIS 1/2 ASSOCIATE VIEWS S PSC RADEX HIP 76057 [facility] CALISTA S UNILATERA RADIOLOGY L COMPLETE ASSOCIATE MINIMUM 2 S PSC VIEWS GROUND A0425 [facility] MILEAGE 8 [place] [facility] PER STATUTE AMBULANCE AMBULANCE MILE AMBULANCE A0429 [facility] SERVICE 8 [facility] CIN[facility] BLS EMERGENCY AMBULANCE AMBULANCE TRANSPORT DEBRIDEME 72513 KARRIE YOON, NT 8 KRISTI G KRISTI G MASTOIDEC JUANCHO CAVITY CMPLX LEVEL III 32507 PATHOLOGY PATHOLOGY SURG 8 & & PATHOLOGY CYTOLOGY CYTOLOGY LAB LAB GROSS&TANI ROSCOPIC EXAM MICROSURG 32219 KARRIE YOON, CATHERINES REQ 8 KRISTI Akhtar USE OPERATING MICROSCOP E ANESTHESI 13948 [facility] ZAB[facility] Maxine 8 ANESTH FAUSTO A EXTERNAL OF THE MIDDLE & BLUEGRASS INNER EAR W/BX NOS DEBRIDEME 55182 KARRIE YOON, NT 8 KRISTI Akhtar MASTOIDEC JUANCHO CAVITY SIMPLE MICROSURG 85130 KARRIE YOON, CATHERINES REQ 8 KRISTI Akhtar USE OPERATING MICROSCOP E Encounters Encounter Start End Date Code Location Performer Type Date OFFICE 79089 A C KILPELA OUTPATIEN 7 7 NANCY FIELDS T VISIT PSC 15 MINUTES OFFICE [address] [facility] YOON OUTPATIEN 7 7 PHYSICIAN T VISIT S GROUP 15 MINUTES OFFICE [address] [facility] YOON OUTPATIEN 7 7 PHYSICIAN T VISIT S GROUP 15 MINUTES OFFICE [address] [facility] YOON OUTPATIEN 7 7 PHYSICIAN T VISIT S GROUP 15 MINUTES OFFICE 53745 A C KILPELA OUTPATIEN 7 7 NANCY FIELDS T VISIT PSC 15 MINUTES OFFICE 48606 A C KILPELA OUTPATIEN 7 7 NANCY FIELDS T VISIT PSC 15 MINUTES OFFICE [address] [facility] YOON OUTPATIEN 7 7 PHYSICIAN T VISIT S GROUP 15 MINUTES [facility] T EMERGENCY 86076 [place] 7 [facility] DEPARTMEN INC T VISIT MODERATE SEVERITY EMERGENCY 75923 [facility] ALEJANDRO 7 7 PHYSICIAN DEPARTMEN S, [facility] T VISIT HIGH/URGE NT SEVERITY OFFICE 52726 A C KILPELA OUTPATIEN 7 7 NANCY FIELDS T VISIT PSC 15 MINUTES OFFICE 03254 A C KILPELA OUTPATIEN 7 7 NANCY FIELDS T VISIT PSC 15 MINUTES [facility] T OFFICE [address] [facility] RONDA CONSULTAT 7 7 PHYSICIAN ION S GROUP NEW[facility] PATIENT 40 MIN OFFICE 94685 A C KILPELA OUTPATIEN 6 6 NANCY FIELDS T VISIT PSC 15 MINUTES OFFICE [address] [facility] YOON OUTPATIEN 6 6 PHYSICIAN KERI T VISIT S GROUP 10 MINUTES [facility] [place] [facility]EN INC [facility] [place] [facility] 6 6 [facility] OUTPAT[facility]EN INC T OFFICE [address] [facility] YOON OUTPATIEN 6 6 PHYSICIAN KERI T VISIT S GROUP 15 MINUTES [facility] [facility]PAT[facility] [place] [facility] T OFFICE [address] [facility] YOON OUTPATIEN 6 6 PHYSICIAN KERI T VISIT S GROUP 10 MINUTES [facility] OUTPATIEN INC T OFFICE 31846 A C KILPELA OUTPATIEN 6 6 NANCY JUAREZ T VISIT PSC 25 MINUTES OFFICE 21208 A C [place] MARTY OUTPATIEN 6 6 NANCY FIELDS T VISIT PSC 15 MINUTES [facility] [facility] 6 6 [facility] OUTPATIEN INC T OFFICE [address] [facility] YOON OUTPATIEN 6 6 PHYSICIAN KERI T VISIT S GROUP 15 MINUTES [facility] 14077 A C KILPELA PREVENTIV 6 6 NANCY JUAREZ E MED EST [facility] PATIENT 40-64YRS OFFICE [address] [facility] YOON OUTPATIEN 6 6 PHYSICIAN KERI T VISIT S GROUP 15 MINUTES OFFICE 86205 A C NANCY OUTPATIEN 6 6 NANCY OLSON T VISIT PSC 15 MINUTES OFFICE 20430 [place] HILLIARD OUTPATIVARSHA 6 6 NANCY FIELDS JEMaxine T VISIT PSC 15 MINUTES OFFICE [address] [facility] YOON OUTPATIEN 6 6 PHYSICIAN KERI T VISIT S GROUP 15 MINUTES OFFICE 55884 [place] [facility] MARTY OUTPATIEN 5 5 NANCY FIELDS T VISIT PSC 25 MINUTES OFFICE 04866 [place] FERGUSON OUTPATIEN 5 5 NANCY FIELDS T VISIT PSC 15 MINUTES HOME [facility], 5 5 HOME INPATIENT HEALTH AGENCY [facility], 5 5 HOME INPATIENT HEALTH AGENCY OFFICE 82654 [place] FERGUSON OUTPATIEN 5 5 NANCY FIELDS T VISIT PSC 15 MINUTES OFFICE 49348 [place] [facility] MARTY OUTPATIEN 5 5 NANCY FIELDS T VISIT PSC 15 MINUTES OFFICE [address] [facility] YOON OUTPATIEN 5 5 PHYSICIAN KERI T VISIT S GROUP 15 MINUTES EMERGENCY 92733 [facility] 5 5 PHYSICIAN HARRY [facility]MEN [facility], [facility] V[facility] MODERATE SEVERITY EMERGENCY 03658 [place] 5 5 [facility] DEPART[facility] INC T VISIT LOW/MODER SEVERITY [facility]EN INC T OFFICE [address] [facility] YOON OUTPATIEN 5 5 PHYSICIAN KERI T NEW 30 S GROUP MINUTES OFFICE 22298 [place]ERG[place] OUTPATIEN 5 5 NANCY FIELDS T VISIT PSC 25 MINUTES OFFICE 00792 [place] [facility] OUTPATIEN 5 5 NANCY FIELDS T VISIT PSC 15 MINUTES OFFICE 58852 [place] [facility] OUTPATIEN 5 5 NANCY FIELDS T VISIT PSC 15 MINUTES OFFICE 22375 A C [place] MARTY OUTPATIEN 4 4 NANCY FIELDS T VISIT PSC 15 MINUTES OFFICE 94350 [facility] Y[facility]ON OUTPATIEN 4 4 KERI KERI T VISIT 15 MINUTES [facility] OUTPATIEN INC T OFFICE 66195 [facility] OUTPATIEN 4 4 KERI KERI T VISIT 15 MINUTES OFFICE 89486 [place] MARTY [place] [facility] OUTPATIEN 4 4 T VISIT 15 MINUTES OFFICE 91036 [place] MARTY [place] [facility] OUTPATIEN 4 4 T VISIT 25 MINUTES OFFICE 28126 [place] MARTY [place] [facility] OUTPATIEN 4 4 T VISIT 15 MINUTES [facility] OUTPATIEN INC T OFFICE 82264 [place]BE[place] SANTAMARIAES MARTY OUTPATIEN 4 4 T VISIT 25 MINUTES OFFICE 45060 [facility] OUTPATIEN 4 4 KERI KERI T VISIT 15 MINUTES OFFICE 49794 [place] M[place] MUNOZES MARTY OUTPATIEN 4 4 T VISIT 15 MINUTES OFFICE 12766 [place] MUNOZES MARTY OUTPATIEN 3 3 T VISIT 10 MINUTES OFFICE 11112 FLORENT[place]OOBEY SANTAMARIAES MARTY OUTPATIEN 3 3 T VISIT 15 MINUTES OFFICE 06787 A C [place] MARTY OUTPATIEN 3 3 NANCY FIELDS T VISIT PSC 15 MINUTES OFFICE 37962 [place] [facility] OUTPATIEN 3 3 NANCY FIELDS T VISIT PSC 15 MINUTES OFFICE 25150 A C ARMINDA OUTPATIEN 3 3 NANCY JUAREZ T VISIT PSC 15 MINUTES [facility] OUTPATIEN INC T HOME [facility], 3 3 HOME OUTPATIEN HEALTH T AGENCY OFFICE 27841 Maxine Reynoso ARMINDA OUTPATIEN 3 3 NANCY Fraga NEW 30 PSC MINUTES OFFICE 05456 LATONYA HANKS OUTPATIEN 3 3 DON DON T VISIT 15 MINUTES OFFICE 14564 KARRIE YOON OUTPATIEN 3 3 KERI KERI T VISIT 15 MINUTES [facility] [place] [facility] OUTPATIEN INC T EMERGENCY 01341 [place] 3 3 [facility] DEPARTMEN INC T VISIT LOW/MODER SEVERITY EMERGENCY 36841 STEFFANY JETER 3 3 III [facility] III [facility] H[facility]URGE NT SEVERITY [facility] [place] [facility] 3 [facility] OUTPATIEN INC T OFFICE 64647 KARRIE YOON OUTPATIEN 3 3 KERI KERI T VISIT 10 MINUTES OFFICE 32313 LATONYA HOLGUINS OUTPATIEN 3 3 DON DON T VISIT 15 MINUTES [facility] T [facility] [place] [facility] OUTPATIEN INC T PERIODIC 05694 LATONYA HOLGUINS PREVENTIV 3 3 DON DON E MED EST PATIENT 40-64YRS OFFICE 09359 KARRIE YOON OUTPATIEN 3 3 KERI KERI T VISIT 25 MINUTES HOME [facility], 3 3 HOME OUTPATIEN HEALTH T AGENCY HOME [facility], 2 2 HOME OUTPATIEN HEALTH T AGENCY EMERGENCY 76231 [place] 2 2 [facility] DEPARTMEN INC T VISIT LOW/MODER SEVERITY [facility] 2 [facility] OUTPATIEN INC T EMERGENCY 05046 WEHRMAN WEHRMAN 2 2 III ADDIS III ADDIS DEPARTMEN T VISIT HIGH/URGE NT SEVERITY OFFICE 50852 [facility]ANKS HANKS OUTPATIEN 2 2 DON DON T VISIT 25 MINUTES [facility] [place] [facility] 2 2 [facility] OUT[facility]IEN [facility] EMERGENCY 86032 [place] 2 2 [facility] VISIT LOW/MODER SEVERITY EMERGENCY 13371 NAHOMY [facility] 2 2 [facility] T VISIT HIGH/URGE NT SEVERITY OFFICE 58929 HANKS HANKS OUTPATIEN 2 2 DON DON T VISIT 25 MINUTES OFFICE 88534 [facility] HANKS OUTPATIEN 2 2 DON DON T VISIT 25 MINUTES [facility] [place] [facility] 2 2 [facility] OUTPATIEN [facility] OFFICE 89059 HANKS HANKS OUTPATIEN 2 2 DON DON T VISIT 25 MINUTES OFFICE 87847 HANKS HANKS OUTPATIEN 2 2 DON DON T VISIT 15 MINUTES [facility] [place] [facility] 2 2 [facility] OUTPATIEN [facility] [facility] 2 2 [facility] OFFICE 60537 HANKS HANKS OUTPATIEN 2 2 DON DON T VISIT 15 MINUTES [facility], 2 2 [facility]IST[facility] OUTPATIEN & HOME HE [facility], 2 2 [facility] OUTPATIEN & HOME [facility] OFFICE 30261 HANKS HANKS OUTPATIEN 2 2 DON DON T VISIT 15 MINUTES OFFICE 57316 HANKS HANKS OUTPATIEN 1 1 DON DON T VISIT 15 MINUTES [facility] [place] [facility] 1 1 [facility] OUTPATIEN [facility] [place] [facility] 1 [facility] OUT[facility] T OFFICE 42721 [place] [facility] 1 1 [place] DO T VISIT CLINIC 25 PSC MINUTES OFFICE 75775 LATONYA HOLGUINS OUTPATIEN 1 1 DON DON T VISIT 15 MINUTES OFFICE 65109 HANKS HANKS OUTPATIEN 1 1 DON DON T VISIT 15 MINUTES [facility] [facility] T OFFICE 02821 [place] [facility] 1 1 [facility] DO T VISIT CLINIC 25 PSC MINUTES OFFICE 14388 HANKS HANKS OUTPATIEN 1 1 DON DON T VISIT 15 MINUTES [facility] [facility] OUTPATIEN INC T EMERGENCY 98211 [place] 1 1 [facility] DEPARTMEN INC T VISIT HIGH/URGE NT SEVERITY EMERGENCY 04348 PEDRITO HERNANDEZ DEPT 1 1 EMERGENCY VISIT SERVICES HIGH SEVERITY& THREAT FUN OFFICE 18062 KARRIE LIMON OUTPATIEN 1 1 KERI KERI T VISIT 15 MINUTES [facility] [place] [facility] OUTPAT[facility]EN INC T EMERGENCY 20125 [place] 1 1 [facility] DEPARTMEN INC T VISIT HIGH/URGE NT SEVERITY EMERGENCY 06673 PEDRITO JETER DEPT 1 1 EMERGENCY III ADDIS VISIT SERVICES HIGH SEVERITY& THREAT FUN [facility]OSP[facility] [place] [facility] 1 [facility] OUTPATIEN INC T OFFICE 42903 LATONYA SHEAHENS OUTPATIEN 1 1 DON DON T VISIT 15 MINUTES [facility] [place] [facility] 1 [facility] OUTPATIEN INC T OFFICE 87555 [place] [place] CONS[facility] 1 1 [facility] NEW/ESTAB PSC PATIENT 60 MIN [facility] [place] [facility] OUTPATIEN INC T OFFICE 50128 LATONYA HOLGUINS OUTPATIEN 1 1 DON DON T VISIT 15 MINUTES [facility] [place] [facility] OUTPATIEN INC T EMERGENCY 92606 PEDRITO COREA DEPT 1 1 EMERGENCY TANI VISIT SERVICES HIGH SEVERITY& THREAT FUN EMERGENCY 55179 [place] 1 1 [facility] DEPARTMEN INC T VISIT HIGH/URGE NT SEVERITY [facility] [place] [facility] 1 1 [facility] OUTPATIEN [facility] T OFFICE 95214 HANKS HANKS OUTPATIEN 0 0 DON DON T VISIT 15 MINUTES EMERGENCY 53587 [place] 0 0 [facility] DEPARTMEN INC T VISIT LOW/MODER SEVERITY EMERGENCY 10863 PEDRITO EHRNANDEZ DEPT 0 0 EMERGENCY VISIT SERVICES HIGH SEVERITY& THREAT [facility] [place] [facility] 0 0 [facility] OUTPATIEN [facility] T OFFICE 88645 CONRAD MARTINES OUTPATIEN 0 0 RUPERT RUPERT T NEW 45 MINUTES OFFICE 85653 HANKS HANKS OUTPATIEN 0 0 DON DON T VISIT 15 MINUTES OFFICE 33120 Y[facility]ON YOON OUTPATIEN 0 0 KERI KERI T VISIT 15 MINUTES [facility] [place] [facility] OUTPATIEN INC T OFFICE 43962 HANKS HANKS OUTPATIEN 0 0 DON DON T VISIT 15 MINUTES OFFICE 52896 [facility] Y[facility]ON OUTPATIEN 0 0 KERI KERI T VISIT 10 MINUTES OFFICE 04224 HANKS HANKS OUTPATIEN 0 0 DON DON T VISIT 15 MINUTES EMERGENCY 94470 [place] 0 0 [facility] DEPARTMEN INC T VISIT HIGH/URGE NT SEVERITY [facility] [place] [facility] 0 0 [facility] OUTPATIEN [facility] T OFFICE 37079 LATONYA HANKS OUTPATIEN 0 0 DON DON T VISIT 15 MINUTES [facility] [facility] 0 0 [facility] OUTPATIEN [facility] T OFFICE 11103 LATONYA HANKS OUTPATIEN 0 0 DON R DON R T VISIT 15 MINUTES OFFICE 21784 YOONKARRIE, OUTPATIEN 0 0 KRISTI G KRISTI G T VISIT 15 MINUTES [facility] [place] [facility] 0 0 [facility] [place] [facility] 0 0 [facility] 24123 KARRIE YOON OUTPATIEN 0 0 KRISTI G KRISTI G T VISIT 15 MINUTES [facility]OSP[facility] [place] - 0 0 [facility] T PERIODIC 95511 LATONYA HANKS, PREVENTIV 0 0 DON R DON R E MED EST PATIENT 40-64YRS OFFICE 47334 CONRAD MARTINES OUTPATIEN 0 0 , EDWIN EDWIN T VISIT W W 15 MINUTES [facility] [place] [facility] 0 0 [facility] OUTPATIEN [facility] T OFFICE 36375 LATONYA HANKS, OUTPATIEN 0 0 DON R DON R T VISIT 15 MINUTES [facility] [place] [facility] 0 0 [facility] OUTPATIEN [facility] T EMERGENCY 53696 [place] 0 0 [facility] DEPARTMEN [facility] T VISIT HIGH/URGE NT SEVERITY OFFICE 40104 LATONYA HANKS, OUTPATIEN 0 0 DON R DON R T VISIT 15 MINUTES [facility] 0 [facility] [place] [facility] T OFFICE 85865 BOWEN WISEMAN OUTPATIEN 0 0 TRACY TRACY T VISIT 15 MINUTES [facility] [place] [facility] 0 [facility] 9 9 [facility] [place] [facility] 9 9 [facility] OUTPAT[facility]EN [facility] T OFFICE 48039 LATONYA HANKS OUTPATIEN 9 9 DON R DON R T VISIT 15 MINUTES OFFICE 58264 [facility] OUTPATIEN 9 9 TRACY TRACY T VISIT 15 MINUTES OFFICE 51883 [facility] OUTPATIEN 9 9 TRACY TRACY T VISIT 15 MINUTES OFFICE 80647 LATONYA HANKS OUTPATIEN 9 9 DON R DON R T VISIT 15 MINUTES OFFICE 85824 LATONYA HANKS OUTPATIEN 9 9 DON R DON R T VISIT 15 MINUTES [facility] [facility] 9 [facility] OUTPATIEN INC [facility] [place] [facility] 9 [facility] T OFFICE 88725 LATONYA HANKS OUTPATIEN 9 9 DON R DON R T VISIT 15 MINUTES [facility] [place] [facility] 9 9 [facility] OUTPATIEN INC [facility] [place] [facility] 9 [facility] OUTPATI[facility] INC [facility] [place] [facility] T OFFICE 09342 BOWEN WISEMAN OUTPATIEN 9 9 TRACY TRACY T NEW 45 MINUTES EMERGENCY 15253 PEDRITO COREA, 9 9 EMERGENCY [facility] T VISIT MODERATE ASSOCIATE SEVERITY S [facility]OSP[facility] [place] [facility] 9 9 [facility] OUTPATIEN INC T OFFICE 10700 LATONYA HANKS OUTPATIEN 9 9 DON R DON R T VISIT 15 MINUTES OFFICE 29008 LATONYA HANKS OUTPATIEN 9 9 DON R DON R T VISIT 15 MINUTES EMERGENCY 73177 [place] DEPT 9 9 [facility] VISIT INC HIGH SEVERITY& THREAT [facility] [place] [facility] 9 [facility] OUTPATIEN INC T HOME 52888 FAMILY VISIT EST 9 9 HOME PT HEALTH MOD-HI CARE INC SEVERITY 40 MINUTES HOME FAMILY HEALTH, 9 9 HOME OUTPATIEN HEALTH T CARE INC HOME 88222 FAMILY VISIT EST 9 9 HOME PT HEALTH MOD-HI CARE INC SEVERITY 40 MINUTES HOME [facility] HEALTH, 9 9 HOME OUTPATIEN HEALTH T CARE INC HOME 53028 FAMILY VISIT EST 9 9 HOME PT HEALTH MOD-HI CARE INC SEVERITY 40 MINUTES HOME [facility], 9 9 HOME OUTPATIEN HEALTH T CARE INC OFFICE 65900 LATONYA HANKS OUTPATIEN 9 9 DON R DON R T VISIT 15 MINUTES OFFICE 91863 LATONYA HANKS OUTPATIEN 8 8 DON R DON R T VISIT 15 MINUTES [facility] [place] [facility] 8 8 [facility] OUTPATIEN INC T OFFICE 18083 LATONYA HANKS OUTPATIEN 8 8 DON R DON R T VISIT 15 MINUTES [facility] [place] [facility] 8 8 [facility] OUTPATIEN INC T EMERGENCY 88935 [place] 8 8 [facility] DEPARTMEN INC T VISIT LOW/MODER SEVERITY EMERGENCY 69497 CLARY SALDANA, 8 8 [facility] VISIT ON MODERATE SEVERITY [facility] [place] [facility] 8 [facility] OUTPATIEN [facility] T [facility] [place] [facility] 8 [facility] OUTPATIEN INC T OFFICE 34226 LATONYA HANKS OUTPATIVARSHA 8 8 DON R DON R T VISIT 15 MINUTES OFFICE 38158 LATONYA HANKS OUTPATIEN 8 8 DON R DON R T VISIT 15 MINUTES OFFICE 30359 LATONYA HANKS OUTPATIEN 8 8 DON R DON R T VISIT 15 MINUTES OFFICE 88021 LATONYA HANKS OUTPATIEN 8 8 DON R DON R T VISIT 15 MINUTES HOME [facility] 8 8 [facility] - OTHER E OFFICE 12836 KARRIE YOON OUTPATIEN 8 8 KRISTI BERRY G T VISIT 15 MINUTES SPECIAL [facility] 8 8 [facility] - OTHER E [facility]OSP[facility] [place] [facility] 8 [facility] INPATIENT INC OFFICE 36649 KARRIE YOON OUTPATIEN 8 8 KRISTI G KRISTI G T VISIT 15 MINUTES
--- OUTSIDE RECORDS SUMMARY | 2017-04-07 21:18 | External Medical Summary Rpt | CCD ---
Author Author , [facility] Organization [facility] Address Unknown Phone [email or web address] Immunization Name Date Rout CVX Reac Dose Comm Prov Is Faci e tion ent ider Refu lity Give sed n Td 03-0 9 999 Hist H149 No H149 (félix 4-19 oric lt), 97 al Info adso rmat rbed ion - Sour ce Unsp ecif ied
--- OUTSIDE RECORDS SUMMARY | 2017-04-07 21:18 | External Medical Summary Rpt | CCD ---
Author Author , [facility] Organization [facility] Address Unknown Phone [email or web address] Me Immunization Name Date Rout CVX Reac Dose Comm Prov Is Faci e tion ent ider Refu lity Give sed n Td 03-0 9 999 Hist H149 No H149 (félix 4-19 oric lt), 97 al Info adso rmat rbed ion - Sour ce Unsp ecif ied
--- OUTSIDE RECORDS SUMMARY | 2017-04-07 21:18 | External Medical Summary Rpt ---
Author Author [facility], [facility] Organization [facility] Address Unknown Phone Unavailable Results Comprehensive metabolic 2000 panel in Serum or Plasma Observa Value Referen Units Interpr Notes Date tion ce etation Range Albumin/G 1.1 - 1.8 No Low No Apr 06 lobulin informati informati 2017 3:04 [Mass on in on in PM ratio] in source source Serum or data data Plasma Albumin 3.4 - 5.0 gm/dL Low No Apr 06 [Mass/vol informati 2017 3:04 ume] in on in PM Serum or source Plasma data Alkaline 46 - 116 U/L Normal No Apr 06 phosphata informati 2017 3:04 se on in PM [Enzymati source c data activity/ volume] in Serum or Plasma Bilirubin 0.2 - 1.0 mg/dL Normal No Apr 06 .total informati 2017 3:04 [Mass/vol on in PM ume] in source Serum or data Plasma Urea 7 - 18 mg/dL Normal No Apr 06 nitrogen informati 2017 3:04 [Mass/vol on in PM ume] in source Serum or data Plasma Calcium 8.5 - mg/dL Normal No Apr 06 [Mass/vol 10.1 informati 2017 3:04 ume] in on in PM Serum or source Plasma data Chloride 98 - 107 mmoL/L Normal No Apr 06 [Moles/vo informati 2017 3:04 lume] in on in PM Serum or source Plasma data Carbon 21.0 - mmoL/L Low No Apr 06 dioxide, 32.0 informati 2017 3:04 total on in PM [Moles/vo source lume] in data Serum or Plasma Creatinin 0.55 - mg/dL No No Apr 06 e 1.02 informati informati 2017 3:04 [Mass/vol on in on in PM ume] in source source Serum or data data Plasma Creatinin 50 - 200 ML/MIN No No Apr 06 e renal informati informati 2017 3:04 clearance on in on in PM source source predicted data data by Cockcroft -Gault formula Estimated 59- ML/MIN Low REFERENCE Mar 13 RANGE: 2017 3:04 glomerula >60 PM r ML/MIN/1. filtratio 73 SQUARE n rate METERSIf (GF this patient is -A merican, then multiply theresult by 1.210. Globulin 1.3 - 3.2 gm/dL High No Apr 06 [Mass/vol informati 2016 3:04 ume] in on in PM Serum source data Glucose 74 - 106 mg/dL High No Apr 06 [Mass/vol informati 2016 3:04 ume] in on in PM Serum or source Plasma data Potassium 3.5 - 5.1 mmoL/L Normal No Apr 06 informati 2016 3:04 [Moles/vo on in PM lume] in source Serum or data Plasma Sodium 136 - 145 mmoL/L Low No Apr 06 [Moles/vo informati 2016 3:04 lume] in on in PM Serum or source Plasma data Aspartate 15 - 37 U/L High No Apr 06 informati 2016 3:04 aminotran on in PM sferase source [Enzymati data c activity/ volume] in Serum or Plasma Alanine 12 - 78 U/L Normal No Apr 06 aminotran informati 2016 3:04 sferase on in PM [Enzymati source c data activity/ volume] in Serum or Plasma Protein 6.4 - 8.2 gm/dL Normal No Apr 06 [Mass/vol informati 2016 3:04 ume] in on in PM Serum or source Plasma data Cardiac enzymes Observa Value Referen Units Interpr Notes Date tion ce etation Range Creatine 0 - 4.0 U/L Normal No Apr 06 kinase.MB informati 2016 3:04 /Creatine on in PM source kinase.to data jessie [Ratio] in Serum or Plasma Creatine 0.0 - 3.6 ng/mL Normal No Apr 06 kinase.MB informati 2017 3:04 on in PM [Mass/vol source ume] in data Serum or Plasma Creatine 26 - 192 U/L Normal No Apr 06 kinase informati 2016 3:04 [Enzymati on in PM c source activity/ data volume] in Serum or Plasma Troponin 0.00 - ng/mL High 0.04 - Apr 06 I.cardiac 0.06 0.49 IS 2017 3:04 AN PM [Mass/vol INDETERMI ume] in NANT Serum or ZONEAnd Plasma can be consisten t with the following diseases: Trauma Criticall y ill patients Short >30% TBSACHF Hypothyro idism Amyloidos isHyperte nsion Myocardit is SepsisHyp otension Rhabdomyo lysis Vital exhaust.P ostop surgery Pulmonary embolism CVARenal failure Acute neurologi ellen disease Atrial fib. CBC W Auto Differential panel in Blood Observa Value Referen Units Interpr Notes Date tion ce etation Range Basophils 0 - 0.2 K/MM3 Normal No Apr 06 informati 2016 1:50 [#/volume on in PM ] in source Blood by data Automated count Basophils 0.1 - 2.0 % Normal No Apr 06 /100 informati 2016 1:50 leukocyte on in PM s in source Blood by data Automated count Eosinophi 0.0 - 0.4 K/mm3 Normal No Apr 06 ls 2016 1:50 [#/volume on in PM ] in source Blood by data Automated count Eosinophi 0.1 - % Normal No Apr 06 ls/100 12.0 informati 2016 1:50 leukocyte on in PM s in source Blood by data Automated count Granulocy 1.8 - 7.8 K/mm3 Normal No Apr 06 liliana informati 2016 1:50 [#/volume on in PM ] in source Blood by data Automated count Granulocy 37.0 - % Normal No Apr 06 liliana/100 80.0 informati 2016 1:50 leukocyte on in PM s in source Blood by data Automated count Hematocri 37.0 - % Normal No Apr 06 t [Volume 47.0 2016 1:50 on in PM Fraction] source of Blood data Hemoglobi 12.2 - g/dL No No Apr 06 n 16.2 informati informati 2016 1:50 [Mass/vol on in on in PM ume] in source source Blood data data Lymphocyt 0.7 - 4.5 K/mm3 Normal No Apr 06 es 2016 1:50 [#/volume on in PM ] in source Unspecifi data ed specimen by Automated count Lymphocyt 10 - 50.0 % Normal No Apr 06 es 2016 1:50 [#/volume on in PM ] in source Unspecifi data ed specimen by Automated count Erythrocy 27 - 31.2 pg High No Apr 06 te mean informati 2016 1:50 corpuscul on in PM ar source hemoglobi data n [Entitic mass] Erythrocy 31.8 - g/dl Normal No Apr 06 te mean 35.4 inform2016 1:50 corpuscul on in PM ar source hemoglobi data n concentra tion [Mass/vol ume] by Automated count Erythrocy 82.2 - fl Normal No Apr 06 te mean 97.8 inform2016 1:50 corpuscul on in PM ar volume source [Entitic data volume] by Automated count Monocytes 0.1 - 1.0 K/mm3 Normal No Apr 06 inform2016 1:50 [#/volume on in PM ] in source Blood by data Automated count Monocytes 1.7 - 9.3 % Normal No Apr 06 /100 informati 2016 1:50 leukocyte on in PM s in source Blood by data Automated count Platelet 7.4 - fl Normal No Apr 06 mean 10.4 informati 2016 1:50 volume on in PM [Entitic source volume] data in Blood by Automated count Platelets 142 - 424 K/mm3 Normal No Apr 06 inform2016 1:50 [#/volume on in PM ] in source Blood data Erythrocy 4.2 - 5.4 M/mm3 Normal No Apr 06 liliana informati 2016 1:50 [#/volume on in PM ] in source Amniotic data fluid Erythrocy 11.5 - % Normal No Apr 06 te 17.5 informati 2016 1:50 distribut on in PM ion width source [Entitic data volume] by Automated count Leukocyte 4.8 - K/MM3 Normal No Apr 06 s 10.8 informati 2016 1:50 [#/volume on in PM ] in source Blood data Glucose [Mass/volume] in Capillary blood by Glucometer Observa Value Referen Units Interpr Notes Date tion ce etation Range Glucose 70 - 110 mg/dl High No Apr 06 [Mass/vol informati 2016 1:42 ume] in on in PM Capillary source blood by data Glucomete r Thyroglobulin Ab [Units/volume] in Serum or Plasma Observa Value Referen Units Interpr Notes Date tion ce etation Range Thyroglob 0.0 - 0.9 IU/mL High Thyroglob Dec 11 ulin Ab ulin 2016 1:51 [Units/vo Antibody PM lume] in measured Serum or by Plasma [facility] Performed at: [address] [id number] Environmental Director: Wili Aquino PhD, Phone: [phone] Thyroperoxidase Ab [Units/volume] in Serum or Plasma Observa Value Referen Units Interpr Notes Date tion ce etation Range Thyropero 0 - 34 IU/mL No Performed Dec 11 xidase Ab informati at: CB 2017 1:51 on in - [facility] PM [Units/vo source lume] in data [place] [address] Serum or 0 [place], [place] [id number] Environmental Director: Wili Aquino PhD, Phone: [phone] Thyroxine (T4) free [Mass/volume] in Serum [...]
--- OUTSIDE RECORDS SUMMARY | 2017-04-07 21:18 | External Medical Summary Rpt ---
[...] lume] in measured Serum or by Plasma [facility] Performed at: [address] [id number] Tool Hardener: Wili Aquino PhD, Phone: [phone] Thyroperoxidase Ab [Units/volume] in Serum or Plasma Observa Value Referen Units Interpr Notes Date tion ce etation Range Thyropero 0 - 34 IU/mL No Performed Dec 11 xidase Ab informati at: CB 2017 1:51 on in - [facility] PM [Units/vo source lume] in data [place] [address] Serum or 0 [place], [place] [id number] Tool Hardener: Wili Aquino PhD, Phone: [phone] Thyroxine (T4) free [Mass/volume] in Serum [...]
== END 2017-04-07 13:57 | disposition home or self-care (01) ==
LOC: ER 13:38 → 2ND 16:54
PROVIDERS: Emergency Medicine
DX: N39.0 Urinary tract infection, site not specified (principal); R74.8 Abnormal levels of other serum enzymes; I10 Essential (primary) hypertension; J45.909 Unspecified asthma, uncomplicated; Z79.899 Other long term (current) drug therapy
CPT/HCPCS: G0378

== ENCOUNTER → 2017-04-17 | Outpatient (CLI) | payer MEDICAID ==
[~2017-04-17] MED LIST changes: +AMLODIPINE BES10 MG PO; +LEVAQUIN500 MG PO
--- NOTE | 2017-04-17 10:15 | RADIOLOGY REPORT PS360 ---
US ABD(COMPLETE-MULTI ORGANS HISTORY: ELEVATED LIVER ENZYMES ORDERING PHYSICIAN: Aurora Pennington APRN PATIENT AGE: 61 years COMPARISON: None FINDINGS: PANCREAS:Unremarkable. No obvious mass or abnormal fluid collection. No ductal dilatation LIVER:The liver has somewhat heterogeneous echogenicity with some irregularity of the hepatic margins. Early cirrhosis could cause this finding. Please correlate with clinical parameters there is appropriate direction of blood flow within the portal vein and the portal vein is not enlarged. No biliary dilatation. RIGHT KIDNEY:Unremarkable. Normal size and echogenicity. No hydronephrosis LEFT KIDNEY:Unremarkable. No hydronephrosis. Normal size and echogenicity. GALLBLADDER:No gallstones, gallbladder wall thickening, pericholecystic fluid, or biliary dilatation. Small amount of sludge in the gallbladder versus concentrated bile in this fasting patient of questionable clinical significance. AORTA:No evidence of aneurysmal dilatation. SPLEEN:Unremarkable. Upper normal in size at 12 cm. ASCITES:None demonstrated. IMPRESSION: 1. There is some mild heterogeneous echogenicity of the liver with mildly irregularity of the hepatic border. These findings may be seen with cirrhosis. Please correlate clinically. 2. Concentrated bile versus small amount of gallbladder sludge. No gallstones
== END ==
LOC: RAD 04-16 10:30
DX: R74.8 Abnormal levels of other serum enzymes (principal)